=== PATIENT | female | born 1945 | race Caucasian/White ===

== ENCOUNTER 2016-09-20 17:23 | Inpatient (IN) ==
[2016-09-20 18:14] LABS: Basophils % 0.2 %; Eosinophils # 0.1 K/mcL (0.0-0.6); Eosinophils % 0.5 %; Hematocrit 27.3 % (35.3-44.9); Hemoglobin 8.5 g/dL (11.5-15.4); Immature Granulocytes % 0.8 % (0-4); Lymphocytes # 0.6 K/mcL (0.6-4.6); Lymphocytes % 5.4 %; Mean Corpuscular HGB Conc 31.1 g/dL (31.6-35.5); Mean Corpuscular Hemoglobin 25.3 pg (28.0-33.3); Mean Corpuscular Volume 81.3 fL (83.0-100.0); Mean Platelet Volume 9.2 fL (9.4-12.4); Monocytes # 1.1 K/mcL (0.0-1.3); Monocytes % 10.3 %; Neutrophils # 8.7 K/mcL (1.6-8.9); Platelet Count 233 K/mcL (140-400); Red Blood Count 3.36 M/mcL (3.82-4.97); Red Cell Distribution Width 16.4 % (11.5-14.5); Segmented Neutrophils % 82.8 %
[2016-09-20 18:26] LABS: Calcium 9.1 mg/dL (8.6-10.8); Potassium 3.9 mEq/L (3.5-4.5)
[2016-09-20] MEDS ORDERED: Furosemide 40 MG/4 ML VIAL IVP ONE ×2 (19:19→21:09)
--- NOTE | 2016-09-20 19:38 | Emergency Department Note ---
Disposition Clinical Impression: CHF (congestive heart failure) Qualifiers: Congestive heart failure type: combined Congestive heart failure chronicity: unspecified congestive heart failure chronicity Qualified Code(s): I50.40 - Unspecified combined systolic (congestive) and diastolic (congestive) heart failure Dyspnea Qualifiers: Dyspnea type: dyspnea on exertion Qualified Code(s): R06.09 - Other forms of dyspnea COPD (chronic obstructive pulmonary disease) Qualifiers: COPD type: unspecified COPD Qualified Code(s): J44.9 - Chronic obstructive pulmonary disease, unspecified Disposition: Admitted As Inpatient Condition: Fair Referrals: Henrry Mccullough MD [Primary Care Provider] - Forms: ED Satisfaction Letter SOB HPI - General Chief Complaint: ED Shortness of Breath/Dyspnea Stated Complaint: SOB Time Seen by Provider: 09/20/16 17:29 Source: patient, EMS Mode of arrival: EMS Limitations: no limitations Nursing Notes Reviewed: Yes Vital Signs Reviewed: Yes - History of Present Illness Patient is a 71-year-old female with multiple medical problems is here for shortness of breath. The patient states she has been short of breath last 3 days she uses oxygen as needed at the care home. She states she has limited mobility when she does she use a walker and she has 2 people on each side of her to help her ambulate. 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 Report was given that she received 80 mg Lasix IM but I cannot find the written documentation from the orders from the care home Pt Subjective Complaint: shortness of breath Onset (ago): day(s) (3) Severity: moderate Consistency/Duration: constant, gradually worsening Improves with: oxygen, rest Known history of: COPD, congestive heart failure Associated symptoms: Denies: chest pain - Related Data Home Medications Medication Instructions Recorded Confirmed Ergocalciferol (VITAMIN D2) 50,000 unit PO MOFR 08/14/15 07/20/16 [Vitamin D2 (50,000 UNIT)] Ferrous Sulfate 325 mg PO BID 08/14/15 07/20/16 Folic Acid 1 mg PO DAILY 08/14/15 07/20/16 GlipiZIDE [Glucotrol] 10 mg PO BID 08/14/15 07/20/16 Insulin Aspart Prot/Insuln Asp 2 - 12 unit SQ ACHS 08/14/15 07/20/16 [Novolog Mix 70-30 Flexpen Syrn] Metoprolol [Lopressor] 25 mg PO BID 08/14/15 07/20/16 Nystatin Cream [Mycostatin Cream] 1 appl TP TID 08/14/15 07/20/16 Sertraline [Zoloft] 150 mg PO DAILY 08/14/15 07/20/16 Spironolactone [Aldactone] 25 mg PO DAILY 08/14/15 07/20/16 Sucralfate [Carafate] 2 gm PO BID 08/14/15 07/20/16 Baclofen 10 mg PO TID 03/19/16 07/20/16 Rivaroxaban [Xarelto] 15 mg PO QPM 03/19/16 07/20/16 Lactulose 10 gm PO QID 06/24/16 07/20/16 Aspirin 81 mg PO DAILY 07/11/16 07/20/16 Fluticasone/Vilanterol [Breo 1 each IH DAILY 07/11/16 07/20/16 Ellipta 100-25 Mcg INH] Ipratropium/Albuterol Neb [Duoneb] 3 ml IH Q4H PRN 07/11/16 07/20/16 Pantoprazole Sodium [Protonix] 40 mg PO DAILY 07/11/16 07/20/16 Previous Rx's Medication Instructions Recorded Polyethylene Glycol 3350 [MiraLAX] 17 gm PO DAILY #7 powd.pack 08/17/15 Diltiazem [Cardizem] 60 mg PO Q12HR #90 tablet 01/06/16 Torsemide [Demadex] 20 mg PO BID #30 tablet 01/06/16 LORazepam [Ativan] 1 mg PO Q12H #14 tablet 07/23/16 Ondansetron ODT [Zofran ODT] 4 mg SL Q6HR PRN #15 tab.rapdis 07/23/16 Oxycodone HCl 10 mg PO Q6H PRN #25 tablet 07/23/16 Levofloxacin [Levaquin] 500 mg PO Q1-2D #2 tablet 07/29/16 Guaifenesin [Mucinex] 600 mg PO Q12H PRN #20 tab.er.12h 08/02/16 Allergies Allergy/AdvReac Type Severity Reaction Status Date / Time ceftriaxone [From Rocephin] Allergy Severe Anaphylaxis Verified 08/14/16 17:10 ciprofloxacin [From Cipro] Allergy Mild Rash Verified 08/14/16 17:10 sulfamethoxazole Allergy See Verified 08/14/16 17:10 [From Bactrim] Comments trimethoprim [From Bactrim] Allergy See Verified 08/14/16 17:10 Comments rozeta Allergy See Uncoded 06/24/16 15:20 Comments All systems ED: reviewed and negative except as stated. Constitutional: Denies: fever, chills, weakness Past Medical History - Past Medical History Source: patient, old records reviewed, nursing notes reviewed Medical history: Reports: arthritis, atrial fibrillation, cirrhosis, CHF, COPD, diabetes, GERD, hyperlipidemia, hypertension, renal disease, other Surgical history: Reports: cholecystectomy, hysterectomy Psychiatric history: Reports: anxiety, panic disorder DRAWING HAND history: Reports: bilateral tubal ligation - Social History Smoking Status: Former smoker Smokeless Tobacco Status: No Alcohol use: Reports: none Drug use: Reports: none Physical Exam - General Limitations: no limitations General appearance: alert - Head Head exam: atraumatic, normocephalic, normal inspection - Eye Eye exam: Present: normal appearance, PERRL, EOMI - ENT ENT exam: normal exam, normal oropharynx, mucous membranes moist - Neck Neck exam: Present: normal inspection, full ROM, trachea midline - Chest Chest inspection: Present: normal inspection, symmetric chest wall rise - Respiratory Respiratory exam: Present: other (Mild tachypnea with prolonged expiratory phase no rales noted or wheezing) - Cardiovascular Cardiovascular exam: Present: regular rate, normal rhythm, normal heart sounds - Abdominal Exam Abdominal exam: Present: soft, Non-Tender. Absent: tenderness, distention, guarding, rebound, rigidity - Expanded Lower Extremity Exam Lower leg exam: Present: other (biLateral 3+ pitting edema) - Neurological Exam Neurological exam: Present: alert, oriented X3, CN II-XII intact - Psychiatric Psychiatric exam: Present: normal affect, normal mood - Skin Skin exam: Present: warm, dry, intact, normal color Course Vital Signs Temperature 98.4 F 09/20/16 17:31 Pulse Rate 73 09/20/16 17:31 Respiratory Rate 20 09/20/16 17:31 Blood Pressure 117/92 09/20/16 17:31 O2 Sat by Pulse Oximetry 95 09/20/16 17:31 Temperature 98.4 F 09/20/16 17:31 Pulse Rate 76 09/20/16 19:49 Respiratory Rate 26 09/20/16 19:49 Blood Pressure 120/75 09/20/16 19:49 O2 Sat by Pulse Oximetry 93 L 09/20/16 19:49 Oxygen Delivery Oxygen Delivery Nasal Cannula Shortness of Breath/Dyspnea - Differential Diagnosis Likely: acute exacerbation of chronic obstructive airways disease, congestive heart failure, pneumonia, asthma with exacerbation, pulmonary embolism, pneumothorax, arrhythmia - Medical Records Medical records reviewed: Yes I reviewed the patient's medical records. - Lab Data Lab results reviewed: Yes I reviewed the patient's lab results. Result diagrams: 09/20/16 18:06 09/20/16 18:06 Lab Results 09/20/16 09/20/16 09/20/16 Range/Units 18:06 18:06 18:06 WBC 10.5 (4.3-11.1) K/mcL RBC 3.36 L (3.82-4.97) M/mcL Hgb 8.5 L (11.5-15.4) g/dL Hct 27.3 L (35.3-44.9) % MCV 81.3 L (83.0-100.0) fL MCH 25.3 L (28.0-33.3) pg MCHC 31.1 L (31.6-35.5) g/dL RDW 16.4 H (11.5-14.5) % Plt Count 233 (140-400) K/mcL MPV 9.2 L (9.4-12.4) fL Immature Gran % 0.8 (0-4) % Seg Neutrophils % 82.8 % Lymphocytes % 5.4 % Monocytes % 10.3 % Eosinophils % 0.5 % Basophils % 0.2 % Neutrophils # 8.7 (1.6-8.9) K/mcL Lymphocytes # 0.6 (0.6-4.6) K/mcL Monocytes # 1.1 (0.0-1.3) K/mcL Eosinophils # 0.1 (0.0-0.6) K/mcL Basophils # 0.0 (0.0-0.2) K/mcL Immature Plt Fraction 2.0 (1.1-6.1) % Sodium 134 L (136-145) mEq/L Potassium 3.9 (3.5-4.5) mEq/L Chloride 95 L (98-109) mEq/L Carbon Dioxide 28 (19-29) mEq/L BUN 22 H (7-20) mg/dL Creatinine 1.68 H (0.57-1.11) mg/dL Est GFR ( Amer) 36 L (> 60) Est GFR (Non-Af Amer) 30 L (> 60) BUN/Creatinine Ratio 13 (6-26) Glucose 288 H (70-99) mg/dL Calculated Osmolality 292 (280-300) Calcium 9.1 (8.6-10.8) mg/dL Troponin I 0.01 (0-0.03) ng/mL B-Natriuretic Peptide (0-100) pg/mL 09/20/16 Range/Units 18:06 WBC (4.3-11.1) K/mcL RBC (3.82-4.97) M/mcL Hgb (11.5-15.4) g/dL Hct (35.3-44.9) % MCV (83.0-100.0) fL MCH (28.0-33.3) pg MCHC (31.6-35.5) g/dL RDW (11.5-14.5) % Plt Count (140-400) K/mcL MPV (9.4-12.4) fL Immature Gran % (0-4) % Seg Neutrophils % % Lymphocytes % % Monocytes % % Eosinophils % % Basophils % % Neutrophils # (1.6-8.9) K/mcL Lymphocytes # (0.6-4.6) K/mcL Monocytes # (0.0-1.3) K/mcL Eosinophils # (0.0-0.6) K/mcL Basophils # (0.0-0.2) K/mcL Immature Plt Fraction (1.1-6.1) % Sodium (136-145) mEq/L Potassium (3.5-4.5) mEq/L Chloride (98-109) mEq/L Carbon Dioxide (19-29) mEq/L BUN (7-20) mg/dL Creatinine (0.57-1.11) mg/dL Est GFR ( Amer) (> 60) Est GFR (Non-Af Amer) (> 60) BUN/Creatinine Ratio (6-26) Glucose (70-99) mg/dL Calculated Osmolality (280-300) Calcium (8.6-10.8) mg/dL Troponin I (0-0.03) ng/mL B-Natriuretic Peptide 678 H (0-100) pg/mL - Radiology Data Radiology results reviewed: Yes I reviewed the patient's radiology results.
[2016-09-20] MEDS ORDERED: Ipratropium/Albuterol Neb 3 ML IH ONE (19:49)
[2016-09-20] MEDS ORDERED: Furosemide 20 MG/2 ML VIAL IVP ONE (21:09)
[2016-09-20] MEDS ORDERED: Naloxone 0.4 MG/ML INJ IVP PRN (21:17)
[2016-09-20] MEDS ORDERED: Ibuprofen 400 MG TABLET PO PRN (21:17)
[2016-09-20] MEDS ORDERED: Simethicone 80 MG TAB.CHEW PO PRN (21:25)
[2016-09-20] MEDS ORDERED: Acetaminophen 325 MG TABLET PO PRN (21:25)
--- NOTE | 2016-09-20 21:29 | Internal Med History&Physical ---
Date of Encounter: 09/20/16 Time of Encounter: 21:00 Assessment and Plan (1) Acute CHF Current visit: Yes Status: Acute Patient has chronic CHF. Last echo on 07/12/16 showed LVEF 65% with mild concentric LV hypertrophy, indeterminate diastolic function due to Afib, normal RV structure and function, trileaflet aortic valve with mild-moderate calcification, mild aortic stenosis, moderate annular calcification, severe pulmonary HTN. CXR reviewed- showed bilateral pleural effusions consistent with acute CHF. Patient agreed to wear BiPAP and was reluctant to get ABG. patient received Lasix at [facility] before coming to ED. She received a total of additional 80mg IV lasix since admission. Continue 80mg IV lasix BID. Sandhu catheter in place. Strict I/O. Continue BiPAP Continue to monitor. Check VBG in am. Qualifiers: Congestive heart failure type: diastolic Qualified Code(s): I50.31 - Acute diastolic (congestive) heart failure (2) Dyspnea Current visit: Yes Status: Acute plan as above. Qualifiers: Dyspnea type: shortness of breath Qualified Code(s): R06.02 - Shortness of breath (3) CKD (chronic kidney disease) Current visit: No Status: Chronic Patient has baseline CKD. patients Cr today was 1.68, which is close to her baseline value. Continue to monitor. Qualifiers: Chronic kidney disease stage: stage 3 (moderate) Qualified Code(s): N18.3 - Chronic kidney disease, stage 3 (moderate) (4) Atrial fibrillation Current visit: No Status: Chronic Currently rate controlled. Continue PO cardiazem, lopressor, Xarelto. Qualifiers: Atrial fibrillation type: chronic Qualified Code(s): I48.2 - Chronic atrial fibrillation (5) Dysphagia Current visit: No Status: Chronic Patient states that for about a month, she has been having trouble swallowing. She says she eats a soft diet with regular liquids. Soft ADA diet. Consult to speech therapy for recommendations. 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 (7) DM type 2 (diabetes mellitus, type 2) Current visit: No Status: Chronic Medium dose sliding scale insulin ADA diet Consult to nurses educator. Qualifiers: Diabetes mellitus complication status: with kidney complications Diabetes mellitus complication detail: with nephropathy Diabetes mellitus intermediate teacher insulin use: without senior living use Qualified Code(s): E11.21 - Type 2 diabetes mellitus with diabetic nephropathy (8) HTN (hypertension) Current visit: No Status: Chronic Qualifiers: Hypertension type: essential hypertension Qualified Code(s): I10 - Essential (primary) hypertension (9) LITO on CPAP Current visit: No Status: Chronic Currently on BiPAP. Patient states she wears CPAP at home with nose piece. (10) Obesity Current visit: No Status: Chronic Qualifiers: Obesity type: due to excess calories Obesity severity: morbid Qualified Code(s): E66.01 - Morbid (severe) obesity due to excess calories (11) DVT prophylaxis Current visit: No Status: Acute Continue Xarelto Internal Medicine - H&P: HPI Chief complaint: shortness of breath Admitted From: Emergency Dept Plans for Post Hospital Care: Transfer Care Home Facility History of present illness: PCP: Henrry Mccullough. Ms. Rodriguez is a 71 year old female with PMHx of Afib, CHF, CKD4, T2DM, cirrhosis of liver, HTN, HLD, LITO. Patient was sent to [facility] from [facility] due to shortness of breath. Earlier in the day, her oxygen saturations have dropped to 70s. She received one dose of IM lasix and was sent to [place]. Patient states that she had shortness of breath that started about one week ago and progressively getting worse. Patient is on 2L oxygen at baseline, and stated that she was requiring more oxygen than usual. She felt like she couldn't catch her breath. She states that she also has felt weak for about a month, and has had trouble swallowing. She denies fever, chills. She has some nausea but denies vomiting. She admits to having duarrhea due to laxatives she takes. Patient admits to having a sensation of pressure on her chest, and says she has chest pain if she breathes in too deeply. She denies recent falls or syncopal episodes. Social Hx: lives at [facility], denies smoking history, denies use of alcohol. Family Hx: mother at 90 from unknown cause. Father at 79 from HF. Has a sister with breast cancer. Surgical Hx: partial hysterectomy, tubal ligation, cholecystectomy. Had a heart cath about two years ago- done by Dr. Leyva. Patient states she did not require any stents. Past Med Surg Social Fam HX - Past Medical History Medical history: arthritis, atrial fibrillation, cirrhosis, CHF, COPD, diabetes , GERD, hyperlipidemia, hypertension, renal disease, other Psychiatric history: anxiety, panic disorder - Past Surgical History Surgical History: cholecystectomy, hysterectomy - Social History Smoking Status: Former smoker Smokeless Tobacco Status: No Alcohol use: none Drug use: none - Family History Mother Living Status: Hx Family Cardiac Disorders: Yes (atrial fibrillation) Hx Family GI Disorders: Yes (Polyps) Hx Family Endocrine Disorder: Yes (DM) Father Living Status: Hx Family Cardiac Disorders: Yes (HTN) Hx Family Cancer: Yes (Leukemia) Sister Living Status: Still Living Hx Family Cancer: Yes (Breast Cancer, age 40's) Hx Family Endocrine Disorder: Yes (diabetes mellitus) Brother Living Status: Still Living Hx Family Cardiac Disorders: No Hx Family Respiratory Disorders: No Hx Family Cancer: No Hx Family GI Disorders: No Hx Family Endocrine Disorder: Yes Hx Family Neuromuscular Disorders: No Hx Family Neurologic Disorders: No Hx Family HEENT Disorders: No Hx Family Autoimmune Disorders: No Internal Medicine - H&P: Meds Folic Acid 1 mg PO DAILY 08/14/15 [History] GlipiZIDE [Glucotrol] 10 mg PO BID 08/14/15 [History] Metoprolol [Lopressor] 12.5 mg PO BID 08/14/15 [History] Sertraline [Zoloft] 150 mg PO DAILY 08/14/15 [History] Sucralfate [Carafate] 2 gm PO BID 08/14/15 [History] Baclofen 5 - 10 mg PO AD 03/19/16 [History] Rivaroxaban [Xarelto] 15 mg PO QPM 03/19/16 [History] Lactulose 10 gm PO QID 06/24/16 [History] Aspirin 81 mg PO DAILY 07/11/16 [History] Fluticasone/Vilanterol [Breo Ellipta 100-25 Mcg INH] 1 each IH DAILY 07/11/16 [ History] Ipratropium/Albuterol Neb [Duoneb] 3 ml IH Q6H PRN 07/11/16 [History] Pantoprazole Sodium [Protonix] 40 mg PO DAILY 07/11/16 [History] Oxycodone HCl 10 mg PO Q6H PRN #25 tablet 07/23/16 [Rx] Calcium Carbonate [Tums] 1,000 mg PO BID PRN 09/20/16 [History] Diltiazem [Cardizem] 30 mg PO TID 09/20/16 [History] Gabapentin [Neurontin] 100 mg PO BID 09/20/16 [History] Insulin DETEMIR [Levemir Flextouch] 5 unit SQ HS 09/20/16 [History] Lidocaine Patch [Lidoderm 5% patch] 1 each TP DAILY 09/20/16 [History] Nystatin POWDER [Nystop] 1 appl TP DAILY PRN 09/20/16 [History] Sennosides [Senna] 17.2 mg PO DAILY 09/20/16 [History] Simethicone [Gas-X] 120 mg PO BID PRN 09/20/16 [History] Torsemide [Demadex] 10 mg PO BID 09/20/16 [History] Allergies ceftriaxone [From Rocephin] Allergy (Severe, Verified 08/14/16 17:10) Anaphylaxis Occured at [facility]. Required ICU transfer, intubation, and mechanical ventilation. ciprofloxacin [From Cipro] Allergy (Mild, Verified 08/14/16 17:10) Rash sulfamethoxazole [From Bactrim] Allergy (Verified 08/14/16 17:10) See Comments trimethoprim [From Bactrim] Allergy (Verified 08/14/16 17:10) See Comments rozeta Allergy (Uncoded 06/24/16 15:20) See Comments All Systems PM: A 10-system review of systems was performed and is negative for pertinent findings except as documented above in the HPI. - Constitutional Constitutional: lethargy, weakness, no anorexia, no chills, no fever(s), no falls - EENT Eyes: blurry vision - Cardiovascular Cardiovascular ROS IM: chest pain (only with deep inspiration), no syncope - Respiratory Respiratory: no cough - Gastrointestinal Gastrointestinal: diarrhea, no abdominal pain, no vomiting - Neurological Neurological ROS: no abnormal movements, no confusion, no dizziness, no frequent falls - Constitutional Vitals: Temp Pulse Resp BP Pulse Ox 98.4 F 76 18 130/78 94 L 09/20/16 17:31 09/20/16 19:49 09/20/16 20:33 09/20/16 20:25 09/20/16 20:33 General appearance: Present: A&O X 3, pleasant, severe distress, answers questions appropriately - Head Head exam: Present: atraumatic, normocephalic - ENT ENT exam: Present: mucous membranes moist - Neck Neck exam general surgery: Present: supple, trachea midline Additional comments: neck cannot be visualized properly secondary to obesity. - Respiratory Respiratory exam: Present: accessory muscle use (patient is in distress with accessory muscle use and abdominal breathing as well. ), rales (fine rales in lower lobes bilaterally. ), rhonchi, wheezes (expiratory wheezing more prominent in the left lung. ) - Cardiovascular Cardiovascular exam: Present: irregular rhythm, +S1, +S2, systolic murmur. Absent: JVD - GI/Abdominal GI/Abdominal exam: Present: normal bowel sounds, soft, tenderness. Absent: guarding - Extremities Exam Extremities exam: Present: normal capillary refill, pedal edema (+3 pitting edema on lower extremities bilaterally. Upper extremity bruising bilaterally. ) , radial pulses palpable and symetrical. Absent: cyanotic - Incison Incision: Present: erythema - Neurological Exam Neurological exam: Present: alert, oriented X3. Absent: facial droop, speech deficit Internal Med - H&P Results - Labs CBC & Chem 7: 09/20/16 18:06 09/20/16 18:06
[2016-09-20 21:50] LABS: VBG HCO3 33.7 mEq/L (21-27); VBG PH 7.38 pH Units (7.32-7.42)
[2016-09-20] MEDS: *HR* OxyCODONE Immed Rel 5 MG TABLET PO PRN (22:00)
[2016-09-21] MEDS ORDERED: D5% in Water 1,000 ML IV PRN (00:12)
[2016-09-21] MEDS ORDERED: *HR* Dextrose 50 % in Water (Syg) 50 ML SYRINGE IVP PRN (00:12)
[2016-09-21] MEDS ORDERED: Dextrose Gel 15 GM PO PRN ×2 (00:12)
[2016-09-21 01:18] LABS: VBG HCO3 35.9 mEq/L (21-27); VBG PH 7.4 pH Units (7.32-7.42)
[2016-09-21 01:20] LABS: Basophils % 0.2 %; Eosinophils # 0.1 K/mcL (0.0-0.6); Eosinophils % 0.8 %; Hemoglobin 7.9 g/dL (11.5-15.4); Immature Granulocytes % 0.7 % (0-4); Lymphocytes # 0.7 K/mcL (0.6-4.6); Lymphocytes % 7.1 %; Mean Corpuscular HGB Conc 31.6 g/dL (31.6-35.5); Mean Corpuscular Hemoglobin 25.9 pg (28.0-33.3); Mean Platelet Volume 9.2 fL (9.4-12.4); Monocytes % 10.2 %; Neutrophils # 7.9 K/mcL (1.6-8.9); Platelet Count 189 K/mcL (140-400); Red Blood Count 3.05 M/mcL (3.82-4.97); Red Cell Distribution Width 16.5 % (11.5-14.5)
--- NOTE | 2016-09-21 01:30 | Event Note ---
Date of Encounter: 09/21/16 Time of Encounter: 01:26 Patient seen and examined with biomedical equipment technician. Patient presents with a picture of pulmonary edema. She has been progressively short of breath for the past week. She has chronic kidney disease and is on a small dose of Lasix at home 20 mg twice a day. Patient with increased work breathing during my interview. She was placed on BiPAP. Sandhu catheter was placed. She will be started only succeeding milligrams intravenous twice daily. She denies any chest pain. She denies any increased sputum production or fevers. X-ray conforming with pulmonary edema. Her electrocardiogram shows atrial relation which is chronic but no ST segment shifts. She mentioned that she had a coronary integrating 2 years ago showed no occlusive disease.
[2016-09-21 01:33] LABS: Albumin 2.1 g/dL (3.5-5.0); Albumin/Globulin Ratio 0.6 (1.1-2.2); Bilirubin,Total 0.5 mg/dL (0.2-1.2); Calcium 9.1 mg/dL (8.6-10.8); Globulin 3.6 g/dL (2.4-3.5); Magnesium 1.6 mg/dL (1.6-2.6); Phosphorous 3.2 mg/dL (2.3-4.7); Potassium 3.5 mEq/L (3.5-4.5); Total Protein 5.7 g/dL (6.0-8.3)
[2016-09-21] MEDS: Insulin LISPRO 300 UNITS/3 ML VIAL SQ SCH ×5 (02:26→21:21)
[2016-09-21] MEDS: Ipratropium/Albuterol Neb 3 ML IH PRN (07:28)
[2016-09-21] MEDS ORDERED: Furosemide 40 MG/4 ML VIAL IVP SCH (08:00)
[2016-09-21] MEDS: Sennosides 8.6 MG TABLET PO SCH (09:58)
[2016-09-21] MEDS: Sucralfate 1 GM TABLET PO SCH ×2 (09:58→21:20)
[2016-09-21] MEDS: Aspirin 81 MG TAB.CHEW PO SCH (09:58)
[2016-09-21] MEDS: Lactulose Oral Soln 20 GM/30 ML UDC PO SCH ×4 (09:58→21:20)
[2016-09-21] MEDS: Gabapentin 100 MG CAPSULE PO SCH ×2 (09:58→21:21)
[2016-09-21] MEDS: Folic Acid 1 MG TABLET PO SCH (09:58)
--- NOTE | 2016-09-21 10:04 | Internal Med Progress Note ---
<Reji Willis - Last Filed: 09/21/16 14:14> Date of Encounter: 09/21/16 Time of Encounter: 10:03 - Assessment and plan (1) Dyspnea Current Visit: Yes Status: Acute Assessment and plan: Hx of recurrent right sided pleural effusion, last time she had chest tube in, pt requested to withdraw it in middle of treatment, pulm was consulted, pleurx catheter was not feasible given her comorbidities and low vol of pleural fluid back then, it was documented that pt refused bronchoscopy that time, previous cytology of pleural fluid was exudative, showed proteinacesous debris, RBC and rare inflammatory cells, IR consulted today, 800ml of bloody pleural fluid removed from left side, it was sent to the lab, her dyspnea improved after the procedure, CT of chest this time showed b/l dense consolidation with scattered patchy ground-glass opacities, right worse than left, worse than previous one, superimposed rounded atelectasis to right LL, spoke to pt, this time she is okay with bronchoscopy if needed, will wait for cytology/pathology of pleural fluid to come back for now. Qualifiers: Dyspnea type: shortness of breath Qualified Code(s): R06.02 - Shortness of breath (2) Chronic diastolic (congestive) heart failure Current Visit: Yes Status: Acute Assessment and plan: Not so much of acute excerbation, will con't diuresis therapy, strict I and O's , check daily weight and daily fluid restriction. Recent echo from showed preserved EF, indeterminate diastolic function due to a-fib. (3) CKD (chronic kidney disease), stage III Current Visit: Yes Status: Acute Assessment and plan: At baseline, con't to monitor and avoid nephrotoxic agents. (4) Chronic anemia Current Visit: Yes Status: Acute Assessment and plan: Baseline is around 9 to 10, came with 8.5, this AM is 7.9, pt states that she has black stool because she takes iron pill, not so much different that usual, fecal occult test ordered, recheck hgn in AM, if further drop, may need to consult endoscopy, hemodynamically stable, not actively bleeding, hold xarelto for now. (5) Obesity (BMI 30-39.9) Current Visit: Yes Status: Acute Assessment and plan: Diet and lifestyle modifications. (6) Cirrhosis Current Visit: Yes Status: Acute Assessment and plan: No alcohol hx, likely ATWOOD, con't lactulose home dosage. Qualifiers: Qualified Code(s): K74.60 - Unspecified cirrhosis of liver (7) DM (diabetes mellitus), type 2 Current Visit: Yes Status: Acute Assessment and plan: Con't basal and SSI, accucheck ACHS. Qualifiers: Qualified Code(s): E11.9 - Type 2 diabetes mellitus without complications; Z79.4 - correction (current) use of insulin (8) DVT prophylaxis Current Visit: Yes Status: Acute Assessment and plan: IPC. - Subjective Interval history: Pt seen and examined, this AM she was complaining of dyspnea, not getting better than yesterday, no productive cough, chest tightness as well, does no feel well. - Constitutional Vitals: Temp Pulse Resp BP Pulse Ox 98.6 F 82 16 118/68 94 L 09/21/16 07:06 09/21/16 07:06 09/21/16 07:28 09/21/16 07:06 09/21/16 07:28 General appearance: Present: cooperative, A&O X 3, obese, severe distress, answers questions appropriately - Head Head exam: Present: atraumatic, normocephalic - Eye Eye exam: Present: PERRL, conjuntiva pink, sclera anicteric Pupils: Present: PERRL - Neck Neck exam general surgery: Present: supple, trachea midline. Absent: lymphadenopathy - Respiratory Respiratory exam: Present: rales (at base b/l). Absent: accessory muscle use, rhonchi, wheezes - Cardiovascular Cardiovascular exam: Present: irregular rhythm, +S1, +S2. Absent: diastolic murmur, gallop, rubs, systolic murmur - GI/Abdominal GI/Abdominal exam: Present: distended, normal bowel sounds, soft, no peritoneal signs. Absent: tenderness - Extremities Exam Extremities exam: Present: pedal edema (2+ pitting b/l), warm, radial pulses palpable and symetrical. Absent: calf tenderness, cyanotic - Neurological Exam Neurological exam: Present: CN II-XII intact, oriented X3, no focal deficits. Absent: pronater drift, facial droop, speech deficit - Skin Skin exam: Present: dry, intact Internal Medicine: Result - Labs CBC & Chem 7: 09/21/16 00:44 09/21/16 00:44 Labs: Short CBC 09/21/16 Range/Units 00:44 WBC 9.8 (4.3-11.1) K/mcL Hgb 7.9 L (11.5-15.4) g/dL Hct 25.0 L (35.3-44.9) % Plt Count 189 (140-400) K/mcL Neutrophils # 7.9 (1.6-8.9) K/mcL BMP 09/21/16 00:44 Sodium 136 Potassium 3.5 Chloride 96 L Carbon Dioxide 30 H BUN 21 H Creatinine 1.59 H Glucose 206 H Calcium 9.1 Cardiac Enzymes 09/21/16 09/21/16 Range/Units 00:44 05:15 Troponin I 0.02 0.03 (0-0.03) ng/mL Liver Function 09/21/16 Range/Units 00:44 Total Bilirubin 0.5 (0.2-1.2) mg/dL AST 10 (5-34) Units/L ALT 7 (0-55) Units/L Alkaline Phosphatase 100 (38-126) Units/L Albumin 2.1 L (3.5-5.0) g/dL Consult Discharge Plan - Plan Referrals: Henrry Mccullough MD [Primary Care Provider] - <Jovani Mcdonald P - Last Filed: 09/21/16 15:01> - Constitutional Vitals: Temp Pulse Resp BP Pulse Ox 98.4 F 89 24 152/72 95 09/21/16 10:45 09/21/16 10:45 09/21/16 10:45 09/21/16 10:45 09/21/16 10:45 Internal Medicine: Result - Labs CBC & Chem 7: 09/21/16 00:44 09/21/16 00:44 - ABG Interpretation ABG results: PT/INR, D-dimer PT 15.4 Seconds (9.4-12.1) H 09/21/16 10:34 - Impressions Impressions Thoracentesis Ultrasound 09/21/16 09:58 IMPRESSION: Successful ultrasound guided left thoracentesis. D/ / Asaf Guerrier MD / Asaf Guerrier MD Interpreting Provider: Asaf Guerrier MD Chest CT 09/21/16 10:45 IMPRESSION: Bilateral pleural effusions, left larger than right, significantly worse on the left from prior exam but improved on the right. Bilateral dense consolidations along with scattered patchy ground-glass opacities, right worse than left. There is also interlobular septal thickening. Findings are worsened from prior exam and likely reflect a combination of pulmonary and interstitial edema, atelectasis as well as multifocal infectious or inflammatory infiltrates. Also suspected superimposed rounded atelectasis to right lower lobe redemonstrated. Continued follow-up recommended. Trace ascites to visualized upper abdomen along with mild cirrhotic changes to the liver. D/ / 09/21/2016 11:37:23 Sathya Goff MD / ancelmo Interpreting Provider: Sathya Goff MD Chest X-Ray 09/21/16 11:24 IMPRESSION: Interval improvement to left pleural effusion status post left thoracentesis. No pneumothorax. Otherwise stable exam. D/ / 09/21/2016 11:48:03 Sathya Goff MD / [email or web address] Interpreting Provider: Sathya Goff MD - Attending Attestation I examined this patient and my medical decision-making was reviewed with the ASSISTANT COMMISSIONER/PA/Advanced Practice Nurse/Resident Physician. I agree with the documented findings, disposition and treatment plan as described except to the extent set forth below. appreciated IR input. Aspirated pleural fluid. awawting cytology. Patient agreed for bronchoscopy
[2016-09-21 10:48] LABS: INR 1.4; Prothrombin Time 15.4 Seconds (9.4-12.1)
[2016-09-21] MEDS: *HR* OxyCODONE Immed Rel 5 MG TABLET PO PRN ×2 (10:48→18:49)
--- NOTE | 2016-09-21 11:25 | IR Procedure Note ---
Date of procedure: 09/21/16 Consent Obtained: Verbal consent, Written consent Timeout: Correct patient and procedure verified, Correct site verified, Time out performed, Skin prep completed Local anesthetic: Lidocaine 1% Indications: Pleural effusions Procedure Performed: Left thoracentesis Site/Technique: Left thoracentesis performed Results/Findings: Serous pleural fluid Estimated blood loss (cc): 2 Complications: None; Tolerated procedure well Post Procedure Treatment Plan: Post procedure CXR
[2016-09-21 14:41] LABS: Appearance of Pleural Fl Cloudy (Clear)
[2016-09-21] MEDS: Simethicone 80 MG TAB.CHEW PO PRN ×2 (15:03→21:27)
--- NOTE | 2016-09-21 16:45 | Electrocardiograph Report ---
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
[2016-09-21] MEDS ORDERED: *HR* Rivaroxaban 15 MG TABLET PO SCH (18:00)
[2016-09-21] MEDS: Ondansetron 4 MG/2 ML VIAL IVP PRN (18:55)
[2016-09-21] MEDS: Insulin DETEMIR 100 UNIT/ML X5UNITS SQ SCH (21:26)
[2016-09-22 06:31] LABS: Basophils % 0.2 %; Eosinophils # 0.2 K/mcL (0.0-0.6); Eosinophils % 2.1 %; Hematocrit 26.3 % (35.3-44.9); Hemoglobin 8.2 g/dL (11.5-15.4); Immature Granulocytes % 0.8 % (0-4); Lymphocytes # 0.8 K/mcL (0.6-4.6); Lymphocytes % 7.1 %; Mean Corpuscular HGB Conc 31.2 g/dL (31.6-35.5); Mean Corpuscular Hemoglobin 25.9 pg (28.0-33.3); Mean Platelet Volume 9.4 fL (9.4-12.4); Neutrophils # 8.6 K/mcL (1.6-8.9); Platelet Count 214 K/mcL (140-400); Red Blood Count 3.17 M/mcL (3.82-4.97); Red Cell Distribution Width 16.4 % (11.5-14.5); Segmented Neutrophils % 80.8 %
[2016-09-22 06:45] LABS: Calcium 9.1 mg/dL (8.6-10.8); Potassium 3.7 mEq/L (3.5-4.5)
[2016-09-22] MEDS: *HR* OxyCODONE Immed Rel 5 MG TABLET PO PRN ×3 (06:45→22:21)
--- NOTE | 2016-09-22 08:01 | Internal Med Progress Note ---
Date of Encounter: 09/22/16 Time of Encounter: 07:53 - Assessment and plan (1) Dyspnea Current Visit: Yes Status: Acute Assessment and plan: Hx of recurrent right sided pleural effusion, last time she had chest tube in, pt requested to withdraw it in middle of treatment, pulm was consulted, pleurx catheter was not feasible given her comorbidities and low vol of pleural fluid back then, it was documented that pt refused bronchoscopy that time, previous cytology of pleural fluid was exudative, showed proteinacesous debris, RBC and rare inflammatory cells, IR consulted today, 800ml of bloody pleural fluid removed from left side, it was sent to the lab, her dyspnea improved after the procedure, CT of chest this time showed b/l dense consolidation with scattered patchy ground-glass opacities, right worse than left, worse than previous one, superimposed rounded atelectasis to right LL, spoke to pt, this time she is okay with bronchoscopy if needed, will wait for cytology/pathology of pleural fluid to come back for now. 09/22/2016 Dyspnea is getting better as a result of pleural fluid aspiration. lymphocytic pleural fluid. awaiting for pleural fluid work up. Pulmonary evaluation for possible bronchoscopy on Saturday. Qualifiers: Dyspnea type: shortness of breath Qualified Code(s): R06.02 - Shortness of breath (2) Chronic diastolic (congestive) heart failure Current Visit: Yes Status: Acute Assessment and plan: Not so much of acute excerbation, will con't diuresis therapy, strict I and O's , check daily weight and daily fluid restriction. Recent echo from showed preserved EF, indeterminate diastolic function due to a-fib. 09/22/2016 Very unlikely exacerbation of heart failure. (3) CKD (chronic kidney disease), stage III Current Visit: Yes Status: Acute Assessment and plan: At baseline, con't to monitor and avoid nephrotoxic agents. 09/22/2016 improving MELECIO will continue present treatment. (4) Obesity (BMI 30-39.9) Current Visit: Yes Status: Acute Assessment and plan: Diet and lifestyle modifications. (5) Chronic anemia Current Visit: Yes Status: Acute Assessment and plan: Baseline is around 9 to 10, came with 8.5, this AM is 7.9, pt states that she has black stool because she takes iron pill, not so much different that usual, fecal occult test ordered, recheck hgn in AM, if further drop, may need to consult endoscopy, hemodynamically stable, not actively bleeding, hold xarelto for now. Medical risk management : Mild to moderate risk of worsening in spite she is on appropriate treatment. - Subjective Interval history: seen and examined. sitting in chair and has occasional shortness of breath. no chest pain. she feels much better as compare to yesterday. - Constitutional Vitals: Temp Pulse Resp BP Pulse Ox 97.8 F 73 16 139/82 95 09/22/16 07:32 09/22/16 07:32 09/22/16 07:32 09/22/16 07:32 09/22/16 07:32 General appearance: Present: cooperative, A&O X 3, obese, severe distress, answers questions appropriately - Head Head exam: Present: atraumatic, normocephalic - Eye Eye exam: Present: PERRL, conjuntiva pink, sclera anicteric Pupils: Present: PERRL - Neck Neck exam general surgery: Present: supple, trachea midline. Absent: lymphadenopathy - Respiratory Respiratory exam: Present: CTAB. Absent: accessory muscle use, rales, rhonchi, wheezes - Cardiovascular Cardiovascular exam: Present: RRR, +S1, +S2. Absent: diastolic murmur, gallop, rubs, systolic murmur - GI/Abdominal GI/Abdominal exam: Present: normal bowel sounds, soft, no peritoneal signs. Absent: distended, tenderness - Extremities Exam Extremities exam: Present: warm, radial pulses palpable and symetrical. Absent : calf tenderness, cyanotic, pedal edema - Neurological Exam Neurological exam: Present: CN II-XII intact, oriented X3, no focal deficits. Absent: pronater drift, facial droop, speech deficit - Skin Skin exam: Present: dry, intact Internal Medicine: Result - Labs CBC & Chem 7: 09/22/16 05:54 09/22/16 05:54 Labs: Short CBC 09/22/16 Range/Units 05:54 WBC 10.6 (4.3-11.1) K/mcL Hgb 8.2 L (11.5-15.4) g/dL Hct 26.3 L (35.3-44.9) % Plt Count 214 (140-400) K/mcL Neutrophils # 8.6 (1.6-8.9) K/mcL BMP 09/22/16 05:54 Sodium 138 Potassium 3.7 Chloride 98 Carbon Dioxide 31 H BUN 24 H Creatinine 1.48 H Glucose 139 H Calcium 9.1 - ABG Interpretation ABG results: PT/INR, D-dimer PT 15.4 Seconds (9.4-12.1) H 09/21/16 10:34 - Impressions Impressions Thoracentesis Ultrasound 09/21/16 09:58 IMPRESSION: Successful ultrasound guided left thoracentesis. D/ / Asaf Guerrier MD / Asaf Guerrier MD Interpreting Provider: Asaf Guerrier MD Chest CT 09/21/16 10:45 IMPRESSION: Bilateral pleural effusions, left larger than right, significantly worse on the left from prior exam but improved on the right. Bilateral dense consolidations along with scattered patchy ground-glass opacities, right worse than left. There is also interlobular septal thickening. Findings are worsened from prior exam and likely reflect a combination of pulmonary and interstitial edema, atelectasis as well as multifocal infectious or inflammatory infiltrates. Also suspected superimposed rounded atelectasis to right lower lobe redemonstrated. Continued follow-up recommended. Trace ascites to visualized upper abdomen along with mild cirrhotic changes to the liver. D/ / 09/21/2016 11:37:23 Sathya Goff MD / ancelmo Interpreting Provider: Sathya Goff MD Chest X-Ray 09/21/16 11:24 IMPRESSION: Interval improvement to left pleural effusion status post left thoracentesis. No pneumothorax. Otherwise stable exam. D/ / 09/21/2016 11:48:03 Sathya Goff MD / stefano Interpreting Provider: Sathya Goff MD Consult Discharge Plan - Plan Referrals: Henrry Mccullough MD [Primary Care Provider] -
[2016-09-22] MEDS ORDERED: *HR* Morphine 2 MG/ML SYRINGE IV ONE (08:18)
[2016-09-22] MEDS: Furosemide 40 MG/4 ML VIAL IVP SCH (08:58)
[2016-09-22] MEDS: Sucralfate 1 GM TABLET PO SCH ×2 (08:58→20:52)
[2016-09-22] MEDS: Lactulose Oral Soln 20 GM/30 ML UDC PO SCH ×4 (08:58→20:51)
[2016-09-22] MEDS: Insulin LISPRO 300 UNITS/3 ML VIAL SQ SCH ×4 (08:58→20:52)
[2016-09-22] MEDS: Folic Acid 1 MG TABLET PO SCH (08:59)
[2016-09-22] MEDS: Sennosides 8.6 MG TABLET PO SCH (08:59)
[2016-09-22] MEDS: Gabapentin 100 MG CAPSULE PO SCH ×2 (08:59→20:52)
[2016-09-22] MEDS: Aspirin 81 MG TAB.CHEW PO SCH (08:59)
[2016-09-22] MEDS: Insulin DETEMIR 100 UNIT/ML X5UNITS SQ SCH (20:51)
[2016-09-22] MEDS ORDERED: GI Cocktail 40 ML EACH PO ONE (22:42)
[2016-09-22] MEDS: Ipratropium/Albuterol Neb 3 ML IH PRN (22:47)
[2016-09-23] MEDS: *HR* OxyCODONE Immed Rel 5 MG TABLET PO PRN ×3 (04:50→17:03)
--- NOTE | 2016-09-23 08:58 | Internal Med Progress Note ---
Date of Encounter: 09/23/16 Time of Encounter: 08:56 - Assessment and plan (1) Dyspnea Current Visit: Yes Status: Acute Assessment and plan: Hx of recurrent right sided pleural effusion, last time she had chest tube in, pt requested to withdraw it in middle of treatment, pulm was consulted, pleurx catheter was not feasible given her comorbidities and low vol of pleural fluid back then, it was documented that pt refused bronchoscopy that time, previous cytology of pleural fluid was exudative, showed proteinacesous debris, RBC and rare inflammatory cells, IR consulted today, 800ml of bloody pleural fluid removed from left side, it was sent to the lab, her dyspnea improved after the procedure, CT of chest this time showed b/l dense consolidation with scattered patchy ground-glass opacities, right worse than left, worse than previous one, superimposed rounded atelectasis to right LL, spoke to pt, this time she is okay with bronchoscopy if needed, will wait for cytology/pathology of pleural fluid to come back for now. 09/22/2016 Dyspnea is getting better as a result of pleural fluid aspiration. lymphocytic pleural fluid. awaiting for pleural fluid work up. Pulmonary evaluation for possible bronchoscopy on Saturday. 09/23/2016. Patient agree follow-up pulmonology review and possible bronchoscopy tomorrow. We will keep her nothing by mouth from midnight. Instructed patient regarding nothing by mouth from midnight. Qualifiers: Dyspnea type: shortness of breath Qualified Code(s): R06.02 - Shortness of breath (2) Chronic diastolic (congestive) heart failure Current Visit: Yes Status: Acute Assessment and plan: Not so much of acute excerbation, will con't diuresis therapy, strict I and O's , check daily weight and daily fluid restriction. Recent echo from showed preserved EF, indeterminate diastolic function due to a-fib. 09/22/2016 Very unlikely exacerbation of heart failure. (3) CKD (chronic kidney disease), stage III Current Visit: Yes Status: Acute Assessment and plan: At baseline, con't to monitor and avoid nephrotoxic agents. 09/22/2016 improving MELECIO will continue present treatment. 09/23/2016. Her creatinine is improving. We will continue present management. (4) Obesity (BMI 30-39.9) Current Visit: Yes Status: Acute Assessment and plan: Diet and lifestyle modifications. (5) Chronic anemia Current Visit: Yes Status: Acute Assessment and plan: Baseline is around 9 to 10, came with 8.5, this AM is 7.9, pt states that she has black stool because she takes iron pill, not so much different that usual, fecal occult test ordered, recheck hgn in AM, if further drop, may need to consult endoscopy, hemodynamically stable, not actively bleeding, hold xarelto for now. Medical risk management : Mild to moderate risk of worsening in spite she is on appropriate treatment. - Subjective Interval history: seen and examined. sitting in chair and has occasional shortness of breath. no chest pain. she feels much better as compare to yesterday. 09/23/2016 Seen and examined. Patient claims that she is occasionally coughing. Patient feels that there is some kind of mucus which is stuck inside. She feels that it is very difficult to get that mucus out. - Constitutional Vitals: Temp Pulse Resp BP Pulse Ox 98.9 F 77 18 144/7 99 09/23/16 07:42 09/23/16 07:42 09/23/16 07:42 09/23/16 05:20 09/23/16 07:42 General appearance: Present: cooperative, A&O X 3, obese, severe distress, answers questions appropriately - Head Head exam: Present: atraumatic, normocephalic - Eye Eye exam: Present: PERRL, conjuntiva pink, sclera anicteric Pupils: Present: PERRL - Neck Neck exam general surgery: Present: supple, trachea midline. Absent: lymphadenopathy - Respiratory Respiratory exam: Present: CTAB. Absent: accessory muscle use, rales, rhonchi, wheezes - Cardiovascular Cardiovascular exam: Present: RRR, +S1, +S2. Absent: diastolic murmur, gallop, rubs, systolic murmur - GI/Abdominal GI/Abdominal exam: Present: normal bowel sounds, soft, no peritoneal signs. Absent: distended, tenderness - Extremities Exam Extremities exam: Present: warm, radial pulses palpable and symetrical. Absent : calf tenderness, cyanotic, pedal edema - Neurological Exam Neurological exam: Present: CN II-XII intact, oriented X3, no focal deficits. Absent: pronater drift, facial droop, speech deficit - Skin Skin exam: Present: dry, intact Internal Medicine: Result - Labs CBC & Chem 7: 02/11/17 05:54 09/22/16 05:54 - ABG Interpretation ABG results: PT/INR, D-dimer PT 15.4 Seconds (9.4-12.1) H 09/21/16 10:34 - VTE Documentation of Mechanical Device: Intermittent pneumatic compression device Consult Discharge Plan - Plan Referrals: Henrry Mccullough MD [Primary Care Provider] -
[2016-09-23] MEDS: Gabapentin 100 MG CAPSULE PO SCH ×2 (09:40→19:53)
[2016-09-23] MEDS: Folic Acid 1 MG TABLET PO SCH (09:40)
[2016-09-23] MEDS: Sennosides 8.6 MG TABLET PO SCH (09:40)
[2016-09-23] MEDS: Insulin LISPRO 300 UNITS/3 ML VIAL SQ SCH ×4 (09:41→20:17)
[2016-09-23] MEDS: Sucralfate 1 GM TABLET PO SCH ×2 (09:41→19:53)
[2016-09-23] MEDS: Ondansetron 4 MG/2 ML VIAL IVP PRN ×2 (09:41→17:02)
[2016-09-23] MEDS: Aspirin 81 MG TAB.CHEW PO SCH (09:41)
[2016-09-23] MEDS: Furosemide 40 MG/4 ML VIAL IVP SCH (09:41)
[2016-09-23] MEDS: Lactulose Oral Soln 20 GM/30 ML UDC PO SCH ×4 (09:41→19:53)
--- NOTE | 2016-09-23 13:16 | Electrocardiograph Report ---
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
[2016-09-23] MEDS: Insulin DETEMIR 100 UNIT/ML X5UNITS SQ SCH (20:18)
[2016-09-23] MEDS: Ipratropium/Albuterol Neb 3 ML IH PRN (21:13)
[2016-09-23] MEDS ORDERED: *HR* Morphine 2 MG/ML SYRINGE IV ONE (22:20)
[2016-09-23] MEDS ORDERED: Furosemide 100 MG/10 ML VIAL IVP STA (22:24)
[2016-09-24 06:23] LABS: Basophils % 0.2 %; Eosinophils # 0.2 K/mcL (0.0-0.6); Eosinophils % 1.9 %; Hematocrit 24.9 % (35.3-44.9); Hemoglobin 7.7 g/dL (11.5-15.4); Immature Granulocytes % 0.8 % (0-4); Lymphocytes # 0.8 K/mcL (0.6-4.6); Lymphocytes % 7.7 %; Mean Corpuscular HGB Conc 30.9 g/dL (31.6-35.5); Mean Corpuscular Hemoglobin 25.8 pg (28.0-33.3); Mean Corpuscular Volume 83.3 fL (83.0-100.0); Mean Platelet Volume 9.2 fL (9.4-12.4); Monocytes # 1.1 K/mcL (0.0-1.3); Monocytes % 10.6 %; Neutrophils # 7.9 K/mcL (1.6-8.9); Platelet Count 233 K/mcL (140-400); Red Blood Count 2.99 M/mcL (3.82-4.97); Red Cell Distribution Width 16.1 % (11.5-14.5); Segmented Neutrophils % 78.8 %
[2016-09-24 06:50] LABS: Albumin/Globulin Ratio 0.5 (1.1-2.2); Alkaline Phosphatase 92 Units/L (38-126); Aspartate Amino Transferase 9 Units/L (5-34); BUN/Creatinine Ratio 22 (6-26); Bilirubin,Total 0.5 mg/dL (0.2-1.2); Calcium 9.2 mg/dL (8.6-10.8); Carbon Dioxide 34 mEq/L (19-29); Chloride 96 mEq/L (98-109); Globulin 3.8 g/dL (2.4-3.5); Glucose 188 mg/dL (70-99); Osmolality,Calculated 299 (280-300); Potassium 4.3 mEq/L (3.5-4.5); Sodium 138 mEq/L (136-145); Total Protein 5.8 g/dL (6.0-8.3); eGFR For African Americans 38 (> 60); eGFR For Non-African Americans 31 (> 60)
[2016-09-24 07:19] LABS: Alanine Aminotransferase < 6 Units/L (0-55); Blood Urea Nitrogen 36 mg/dL (7-20)
[2016-09-24] MEDS ORDERED: Aztreonam 500 MG in D5% in Water 100 ML IVPB SCH (08:00)
[2016-09-24] MEDS: Insulin LISPRO 300 UNITS/3 ML VIAL SQ SCH ×3 (09:25→21:05)
[2016-09-24] MEDS: Ipratropium/Albuterol Neb 3 ML IH PRN (10:30)
[2016-09-24] MEDS ORDERED: *HR* Morphine 2 MG/ML SYRINGE IV ONE (10:46)
--- NOTE | 2016-09-24 12:42 | Internal Med Progress Note ---
<Reji Kim - Last Filed: 09/24/16 14:06> Date of Encounter: 09/24/16 Time of Encounter: 08:35 - Assessment and plan (1) Acute and chronic respiratory failure Current Visit: Yes Status: Acute Assessment and plan: Patients respiratory pathology is likely from multiple etiologies. COPD, diastolic CHF, pleural effusions,and obesity. Currently she is tolerating Bipap at 35% FiO2. She has recurrent pleural effusions and had recent thoracentesis that was reportedly bloody. Cytology is pending. She was seen in consultation by pulmonology. It eas recommended at that time to perform a bronchoscopy to r/o endobronchial lesion. However she refused at that time. Will continue with supportive care, diureses, and bronchodialators. She will need to go back on her long acting inhalers once she is discharged. However she is getting short acting Duonebs frequently at this time. consult pulm as she is now willing to have bronchoscopy. appreciate their recommendations. Qualifiers: Qualified Code(s): J96.20 - Acute and chronic respiratory failure, unspecified whether with hypoxia or hypercapnia (2) Pleural effusion Current Visit: Yes Status: Acute Assessment and plan: recurrent etiology unclear. await pathology results. (3) Anemia Current Visit: Yes Status: Acute Assessment and plan: Etioloy unclear at this time. Recent iron studies, ferritin, B1 and folate WNL. Possibly secondary to CKD. May benefit from erythropoetin in the future. I will also check her reticulocyte counts. and LDH. Hemoccult ordered but never recieve. I have ordered hemoocult. Continue to hold Xarelto for now. Qualifiers: Qualified Code(s): D64.9 - Anemia, unspecified (4) Diastolic heart failure Current Visit: Yes Status: Acute Assessment and plan: net negative 525 cc's since admission continue diuresis fluid restriction continue to monitor renal function. strict I's and Os Qualifiers: Qualified Code(s): I50.30 - Unspecified diastolic (congestive) heart failure (5) Obesity Current Visit: Yes Status: Acute Assessment and plan: advise weight loss Qualifiers: Qualified Code(s): E66.9 - Obesity, unspecified (6) CKD (chronic kidney disease) Current Visit: Yes Status: Acute Qualifiers: Qualified Code(s): N18.9 - Chronic kidney disease, unspecified (7) Diabetes Current Visit: Yes Status: Acute Qualifiers: Qualified Code(s): E11.9 - Type 2 diabetes mellitus without complications (8) Cirrhosis Current Visit: Yes Status: Acute Assessment and plan: Etiology likely secondary to ATWOOD. Avoid hepatotoxins diabetes control. weght loss. Qualifiers: Qualified Code(s): K74.60 - Unspecified cirrhosis of liver (9) Atrial fibrillation Current Visit: Yes Status: Acute Assessment and plan: currently rate controlled. Xarelto has been held due to concern for GI bleed with anemia. Continue to hold until hemmoccult returns. Qualifiers: Qualified Code(s): I48.91 - Unspecified atrial fibrillation (10) DVT prophylaxis Current Visit: Yes Status: Acute Assessment and plan: She is high risk for developing DVT will order SQ heparin - Subjective Interval history: Patient did have some increased dyspnea over night that has since resolved. However she is still requiring BIPAP. She denies productive cough ad hemoptysis. she She dose complain of some discomfort from her catheter. she denies any further complains or concerns at this time. - Constitutional Vitals: Temp Pulse Resp BP Pulse Ox 97.1 F L 87 23 146/74 94 L 09/24/16 07:56 09/24/16 11:45 09/24/16 11:45 09/24/16 11:45 09/24/16 12:32 General appearance: Present: cooperative, A&O X 3, morbidly obese, pleasant, no acute distress, obese, answers questions appropriately - Head Head exam: Present: atraumatic, normal inspection, normocephalic - Eye Eye exam: Present: normal appearance, PERRL, conjuntiva pink, sclera anicteric. Absent: conjunctival injection, scleral icterus Pupils: Present: PERRL Additional comments: wearing BIPAP - Neck Neck exam general surgery: Present: supple, trachea midline. Absent: lymphadenopathy - Respiratory Respiratory exam: Present: CTAB. Absent: accessory muscle use, rales, rhonchi, wheezes Additional comments: mild wheezes and rhonchi bilateral. Lung sounds diminished throughout. Difficult exam secondary to habitus. Internal Medicine: Result - Labs CBC & Chem 7: 09/24/16 05:39 09/24/16 05:39 Labs: Short CBC 09/24/16 Range/Units 05:39 WBC 10.0 (4.3-11.1) K/mcL Hgb 7.7 L (11.5-15.4) g/dL Hct 24.9 L (35.3-44.9) % Plt Count 233 (140-400) K/mcL Neutrophils # 7.9 (1.6-8.9) K/mcL BMP 09/24/16 05:39 Sodium 138 Potassium 4.3 Chloride 96 L Carbon Dioxide 34 H BUN 36 H D Creatinine 1.61 H Glucose 188 H Calcium 9.2 Cardiac Enzymes 09/23/16 Range/Units 22:52 Troponin I 0.01 (0-0.03) ng/mL Liver Function 09/24/16 Range/Units 05:39 Total Bilirubin 0.5 (0.2-1.2) mg/dL AST 9 (5-34) Units/L ALT < 6 (0-55) Units/L Alkaline Phosphatase 92 (38-126) Units/L Albumin 2.0 L (3.5-5.0) g/dL - ABG Interpretation ABG results: PT/INR, D-dimer PT 15.4 Seconds (9.4-12.1) H 09/21/16 10:34 - Impressions Impressions Chest/Abdomen X-ray 09/23/16 21:50 IMPRESSION: Nonspecific bowel gas pattern. No evidence of free intraperitoneal air. Stable appearance of extensive bibasilar airspace opacities, concerning for pneumonia. Small bilateral effusions. D/ / David Hammond MD / David Hammond MD Interpreting Provider: David Hammond MD - VTE Documentation of Mechanical Device: Intermittent pneumatic compression device Consult Discharge Plan - Plan Referrals: Henrry Mccullough MD [Primary Care Provider] - <Jovani Mcdonald - Last Filed: 09/24/16 17:41> - Assessment and plan (1) Dyspnea Current Visit: Yes Status: Acute Qualifiers: Dyspnea type: shortness of breath Qualified Code(s): R06.02 - Shortness of breath (2) Chronic diastolic (congestive) heart failure Current Visit: Yes Status: Acute (3) CKD (chronic kidney disease), stage III Current Visit: Yes Status: Acute (4) Obesity (BMI 30-39.9) Current Visit: Yes Status: Acute (5) Chronic anemia Current Visit: Yes Status: Acute - Constitutional Vitals: Temp Pulse Resp BP Pulse Ox 98.0 F 76 22 146/83 20 L 09/24/16 16:07 09/24/16 16:07 09/24/16 16:07 09/24/16 16:07 09/24/16 16:07 Internal Medicine: Result - Labs CBC & Chem 7: 09/24/16 05:39 09/24/16 05:39 Labs: Short CBC 09/24/16 Range/Units 05:39 WBC 10.0 (4.3-11.1) K/mcL Hgb 7.7 L (11.5-15.4) g/dL Hct 24.9 L (35.3-44.9) % Plt Count 233 (140-400) K/mcL Neutrophils # 7.9 (1.6-8.9) K/mcL BMP 09/24/16 05:39 Sodium 138 Potassium 4.3 Chloride 96 L Carbon Dioxide 34 H BUN 36 H D Creatinine 1.61 H Glucose 188 H Calcium 9.2 Cardiac Enzymes 09/23/16 Range/Units 22:52 Troponin I 0.01 (0-0.03) ng/mL Liver Function 09/24/16 Range/Units 05:39 Total Bilirubin 0.5 (0.2-1.2) mg/dL AST 9 (5-34) Units/L ALT < 6 (0-55) Units/L Alkaline Phosphatase 92 (38-126) Units/L Albumin 2.0 L (3.5-5.0) g/dL - ABG Interpretation ABG results: PT/INR, D-dimer PT 15.4 Seconds (9.4-12.1) H 09/21/16 10:34 - Impressions Impressions Chest/Abdomen X-ray 09/23/16 21:50 IMPRESSION: Nonspecific bowel gas pattern. No evidence of free intraperitoneal air. Stable appearance of extensive bibasilar airspace opacities, concerning for pneumonia. Small bilateral effusions. D/ / David Hammond MD / David Hammond MD Interpreting Provider: David Hammond MD - Attending Attestation I examined this patient and my medical decision-making was reviewed with the DAYTIME BABYSITTER/PA/Advanced Practice Nurse/Resident Physician. I agree with the documented findings, disposition and treatment plan as described except to the extent set forth below. recurrent pleural effusion previously refused bronchoscopy pulmonary on board pending bronchoscopy
[2016-09-24] MEDS: Gabapentin 100 MG CAPSULE PO SCH ×2 (16:35→21:03)
[2016-09-24] MEDS: Aspirin 81 MG TAB.CHEW PO SCH (16:35)
[2016-09-24] MEDS: *HR* OxyCODONE Immed Rel 5 MG TABLET PO PRN ×2 (16:35→22:59)
[2016-09-24] MEDS: Folic Acid 1 MG TABLET PO SCH (16:36)
[2016-09-24] MEDS: Sucralfate 1 GM TABLET PO SCH ×2 (16:36→21:04)
[2016-09-24] MEDS: Sennosides 8.6 MG TABLET PO SCH (16:37)
[2016-09-24] MEDS: Lactulose Oral Soln 20 GM/30 ML UDC PO SCH ×4 (16:37→21:04)
[2016-09-24] MEDS: Furosemide 40 MG/4 ML VIAL IVP SCH (16:38)
[2016-09-24] MEDS: *HR* Heparin 5,000 UNIT/ML VIAL SQ SCH (17:23)
--- NOTE | 2016-09-24 17:30 | Pulmonology Consult Note ---
Date of Encounter: 09/24/16 Time of Encounter: 16:30 Assessment and Plan (1) Acute and chronic respiratory failure Current Visit: Yes Status: Acute I had long discussion with patient and daughter at the bed side regarding management of her respiratory failure which is multifactorial in my opinion, such as diastolic heart failure and valvular heart disease as well as recurrent pleural effusion as well as secondary pulmonary hypertension. Daughter was under impression bronchoscopy is without risk and I told her her mother would be consider high risk for complications and I explained to them all the risks, alternatives and benefit of the procedure. Patient would like to think about it and I will visit her tomorrow. I'm not sure if anesthesia will give agree to give her anesthesia for the procedure. Patient is under impression bronchoscopy will help her to breath better and it is therapeutic. I did explained to her that is not the case and it might worsen her condition. I feel patient has multiple medical problems and palliative care is recommended. I agree with current treatment at this time. Qualifiers: Respiratory failure complication: hypoxia and hypercapnia Qualified Code(s) : J96.21 - Acute and chronic respiratory failure with hypoxia; J96.22 - Acute and chronic respiratory failure with hypercapnia (2) Pulmonary hypertension due to hypoxia Current Visit: Yes Status: Chronic Keep SPO2 around 92% (3) Pulmonary hypertension due to left heart disease Current Visit: Yes Status: Chronic This is most likely Group 2 and 3 and need to treat underlying diseases. 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 History of Present Illness Consult date: 09/24/16 Requesting physician: Jovani Mcdonald Reason for consult: dyspnea, pneumonia, pleural effusion Chief complaint: Shortness of breath History of present illness: This is a pleasant 71 year female with multiple medical problems as mentioned under PMH with multiple hospitalization to [facility] for similar symptoms. Patient had worsening of her dyspnea and was found to have CT finding mostly suggestive of pulmonary edema and atelectasis, however infectious etiology in the differential diagnosis. Patient was kept NPO for bronchoscopy today. I saw patient with nurse and talked her daughter. Patient has been in respiratory distress and she has history of A fib and CHF as well as LITO and pulmonary hypertesnion. She had thoracentesis done and she has been using NIV. She has cough, mostly dry, no hemoptysis, but she has a sensation of pressure in her chest at this time. She has noticed some wheezing and she has been treated with bronchodilators. Patient feels she has been getting worse and she is using O2 at 2 lpm at baseline. She stated she feels she is not able to catch her breath and she feels weak. No fever or chills now. Past Med Surg Social Fam HX - Past Medical History Medical history: arthritis, atrial fibrillation, cirrhosis, CHF, COPD, diabetes , GERD, hyperlipidemia, hypertension, renal disease, other Psychiatric history: anxiety, panic disorder - Past Surgical History Surgical History: cholecystectomy, hysterectomy - Social History Smoking Status: Former smoker Smokeless Tobacco Status: No Alcohol use: none Drug use: none - Family History Mother Living Status: Hx Family Cardiac Disorders: Yes (atrial fibrillation) Hx Family GI Disorders: Yes (Polyps) Hx Family Endocrine Disorder: Yes (DM) Father Living Status: Hx Family Cardiac Disorders: Yes (HTN) Hx Family Cancer: Yes (Leukemia) Sister Living Status: Still Living Hx Family Cancer: Yes (Breast Cancer, age 40's) Hx Family Endocrine Disorder: Yes (diabetes mellitus) Brother Living Status: Still Living Hx Family Cardiac Disorders: No Hx Family Respiratory Disorders: No Hx Family Cancer: No Hx Family GI Disorders: No Hx Family Endocrine Disorder: Yes Hx Family Neuromuscular Disorders: No Hx Family Neurologic Disorders: No Hx Family HEENT Disorders: No Hx Family Autoimmune Disorders: No Medications and Allergies Folic Acid 1 mg PO DAILY 08/14/15 [History] GlipiZIDE [Glucotrol] 10 mg PO BID 08/14/15 [History] Metoprolol [Lopressor] 12.5 mg PO BID 08/14/15 [History] Sertraline [Zoloft] 150 mg PO DAILY 08/14/15 [History] Sucralfate [Carafate] 2 gm PO BID 08/14/15 [History] Baclofen 5 - 10 mg PO AD 03/19/16 [History] Rivaroxaban [Xarelto] 15 mg PO QPM 03/19/16 [History] Lactulose 10 gm PO QID 06/24/16 [History] Aspirin 81 mg PO DAILY 07/11/16 [History] Fluticasone/Vilanterol [Breo Ellipta 100-25 Mcg INH] 1 each IH DAILY 07/11/16 [ History] Ipratropium/Albuterol Neb [Duoneb] 3 ml IH Q6H PRN 07/11/16 [History] Pantoprazole Sodium [Protonix] 40 mg PO DAILY 07/11/16 [History] Oxycodone HCl 10 mg PO Q6H PRN #25 tablet 07/23/16 [Rx] Calcium Carbonate [Tums] 1,000 mg PO BID PRN 09/20/16 [History] Diltiazem [Cardizem] 30 mg PO TID 09/20/16 [History] Gabapentin [Neurontin] 100 mg PO BID 09/20/16 [History] Insulin DETEMIR [Levemir Flextouch] 5 unit SQ HS 09/20/16 [History] Lidocaine Patch [Lidoderm 5% patch] 1 each TP DAILY 09/20/16 [History] Nystatin POWDER [Nystop] 1 appl TP DAILY PRN 09/20/16 [History] Sennosides [Senna] 17.2 mg PO DAILY 09/20/16 [History] Simethicone [Gas-X] 120 mg PO BID PRN 09/20/16 [History] Torsemide [Demadex] 10 mg PO BID 09/20/16 [History] Allergies ceftriaxone [From Rocephin] Allergy (Severe, Verified 08/14/16 17:10) Anaphylaxis Occured at [facility]. Required ICU transfer, intubation, and mechanical ventilation. ciprofloxacin [From Cipro] Allergy (Mild, Verified 08/14/16 17:10) Rash sulfamethoxazole [From Bactrim] Allergy (Verified 08/14/16 17:10) See Comments trimethoprim [From Bactrim] Allergy (Verified 08/14/16 17:10) See Comments rozeta Allergy (Uncoded 06/24/16 15:20) See Comments All Systems: A 10-system review of systems was performed and is negative for pertinent findings except as documented above in the HPI. Physical Examination Vital Signs: Vital Signs, Last 4 Hours Temp Pulse Resp BP Pulse Ox 09/24/16 16:07 98.0 F 76 22 146/83 20 L General appearance: appears uncomfortable Eyes: nonicteric ENT: oropharynx dry Mallampati (class): 4 Neck: supple, no lymphadenopathy, JVD Effort: other (moderately labored) Auscultation: bilateral: diminished breath sounds, rhonchi Percussion: bilateral: not dull Cardiovascular: irregular rhythm Gastrointestinal: normoactive bowel sounds, soft Extremities: edema non-focal exam, pupils equal and round depressed Results - Laboratory Findings CBC and BMP: 09/24/16 05:39 09/24/16 05:39 PT/INR, D-dimer PT 15.4 Seconds (9.4-12.1) H 09/21/16 10:34 Abnormal lab findings: Abnormal lab results RBC 2.99 M/mcL (3.82-4.97) L 09/24/16 05:39 Hgb 7.7 g/dL (11.5-15.4) L 09/24/16 05:39 Hct 24.9 % (35.3-44.9) L 09/24/16 05:39 MCH 25.8 pg (28.0-33.3) L 09/24/16 05:39 MCHC 30.9 g/dL (31.6-35.5) L 09/24/16 05:39 RDW 16.1 % (11.5-14.5) H 09/24/16 05:39 MPV 9.2 fL (9.4-12.4) L 09/24/16 05:39 PT 15.4 Seconds (9.4-12.1) H 09/21/16 10:34 VBG pCO2 58 mmHg (41-51) H 09/21/16 00:44 VBG pO2 79 mmHg (25-40) H 09/21/16 00:44 VBG HCO3 35.9 mEq/L (21-27) H 09/21/16 00:44 Chloride 96 mEq/L (98-109) L 09/24/16 05:39 Carbon Dioxide 34 mEq/L (19-29) H 09/24/16 05:39 BUN 36 mg/dL (7-20) H D 09/24/16 05:39 Creatinine 1.61 mg/dL (0.57-1.11) H 09/24/16 05:39 Est GFR ( Amer) 38 (> 60) L 09/24/16 05:39 Est GFR (Non-Af Amer) 31 (> 60) L 09/24/16 05:39 Glucose 188 mg/dL (70-99) H 09/24/16 05:39 POC Glucose 194 (58-89) H 09/24/16 08:00 B-Natriuretic Peptide 678 pg/mL (0-100) H 09/20/16 18:06 Serum Total Protein 5.8 g/dL (6.0-8.3) L 09/24/16 05:39 Albumin 2.0 g/dL (3.5-5.0) L 09/24/16 05:39 Globulin 3.8 g/dL (2.4-3.5) H 09/24/16 05:39 Albumin/Globulin Ratio 0.5 (1.1-2.2) L 09/24/16 05:39 Pleural Appearance Cloudy (Clear) A 09/21/16 11:30 - Microbiology Findings Microbiology Findings: Microbiology, Last 48 Hours 09/21/16 11:30 Body Fluid Culture - Preliminary Pleural Fluid - Diagnostic Findings Chest x-ray: report reviewed, image reviewed - Clinical Findings Intake & Output: Intake & Output 09/24/16 09/24/16 09/24/16 07:59 15:59 23:59 Intake Total 0 / 0 0 / 0 0 / 0 Output Total 625 / 625 450 / 450 Balance -625 / -625 0 / 0 -450 / -450 Weight 105.7 kg 105.7 kg Consult Discharge Plan - Plan Referrals: Henrry Mccullough MD [Primary Care Provider] -
--- NOTE | 2016-09-24 19:42 | Electrocardiograph Report ---
[place] [id number] Test Date: 2016-09-23 Pat Name: Jaimee Rodriguez Department: 111 Room: [id number] Gender: F [employer]: : [id number] Requested By: Mary Alatorre Order Number: [id number] Reading MD: Colten Issa DO Measurements Intervals [place] Rate: 82 P: MD: 0 QRS: 12 QRSD: 86 T: 91 QT: 356 QTc: 395 Interpretive Statements ATRIAL FIBRILLATION LOW QRS VOLTAGE IN THE LIMB LEADS Electronically Signed On 09-24-2016 19:41:39 EST by Colten Issa DO
[2016-09-24] MEDS: Insulin DETEMIR 100 UNIT/ML X5UNITS SQ SCH (21:05)
[2016-09-25] MEDS: *HR* OxyCODONE Immed Rel 5 MG TABLET PO PRN ×2 (05:30→11:25)
[2016-09-25] MEDS: Insulin LISPRO 300 UNITS/3 ML VIAL SQ SCH ×3 (08:56→16:59)
[2016-09-25] MEDS: *HR* Heparin 5,000 UNIT/ML VIAL SQ SCH (08:56)
[2016-09-25] MEDS: Ondansetron 4 MG/2 ML VIAL IVP PRN (09:12)
[2016-09-25] MEDS: Furosemide 40 MG/4 ML VIAL IVP SCH (09:12)
[2016-09-25] MEDS: Sennosides 8.6 MG TABLET PO SCH (11:17)
[2016-09-25] MEDS: Lactulose Oral Soln 20 GM/30 ML UDC PO SCH ×3 (11:17→16:58)
[2016-09-25] MEDS: Sucralfate 1 GM TABLET PO SCH (11:17)
[2016-09-25] MEDS: Aspirin 81 MG TAB.CHEW PO SCH (11:17)
[2016-09-25] MEDS: Gabapentin 100 MG CAPSULE PO SCH (11:18)
[2016-09-25] MEDS: Folic Acid 1 MG TABLET PO SCH (11:18)
[2016-09-25] MEDS ORDERED: Simethicone 80 MG TAB.CHEW PO PRN (12:36)
--- NOTE | 2016-09-25 13:13 | Discharge Summary ---
<Tonny Martin - Last Filed: 09/25/16 18:05> Date of Encounter: 09/25/16 Time of Encounter: 10:00 - Discharge Diagnosis (1) Acute CHF Priority: Secondary Status: Acute Qualifiers: Congestive heart failure type: diastolic Qualified Code(s): I50.31 - Acute diastolic (congestive) heart failure (2) Dyspnea Priority: Primary Status: Acute Qualifiers: Dyspnea type: shortness of breath Qualified Code(s): R06.02 - Shortness of breath (3) CKD (chronic kidney disease) Priority: Secondary Status: Chronic Qualifiers: Chronic kidney disease stage: stage 3 (moderate) Qualified Code(s): N18.3 - Chronic kidney disease, stage 3 (moderate) (4) Atrial fibrillation Priority: Secondary Status: Chronic Qualifiers: Atrial fibrillation type: chronic Qualified Code(s): I48.2 - Chronic atrial fibrillation (5) Dysphagia Priority: Secondary Status: Chronic Qualifiers: Dysphagia type: unspecified Qualified Code(s): R13.10 - Dysphagia, unspecified (6) Cirrhosis of liver not due to alcohol Priority: Secondary Status: Chronic (7) DM type 2 (diabetes mellitus, type 2) Priority: Secondary Status: Chronic Qualifiers: Diabetes mellitus complication status: with kidney complications Diabetes mellitus complication detail: with nephropathy Diabetes mellitus explosive man insulin use: without explosive man use Qualified Code(s): E11.21 - Type 2 diabetes mellitus with diabetic nephropathy (8) HTN (hypertension) Priority: Secondary Status: Chronic Qualifiers: Hypertension type: unspecified secondary hypertension Qualified Code(s): I15.9 - Secondary hypertension, unspecified; I15 - Secondary hypertension (9) LITO on CPAP Priority: Secondary Status: Chronic (10) Obesity Priority: Secondary Status: Chronic Qualifiers: Obesity type: due to excess calories Obesity severity: morbid Qualified Code(s): E66.01 - Morbid (severe) obesity due to excess calories (11) DVT prophylaxis Priority: Secondary Status: Acute - Discharge Medications Home Medications: Folic Acid 1 mg PO DAILY 08/14/15 [History] GlipiZIDE [Glucotrol] 10 mg PO BID 08/14/15 [History] Metoprolol [Lopressor] 12.5 mg PO BID 08/14/15 [History] Sertraline [Zoloft] 150 mg PO DAILY 08/14/15 [History] Sucralfate [Carafate] 2 gm PO BID 08/14/15 [History] Baclofen 5 - 10 mg PO AD 03/19/16 [History] Rivaroxaban [Xarelto] 15 mg PO QPM 03/19/16 [History] Lactulose 10 gm PO QID 06/24/16 [History] Aspirin 81 mg PO DAILY 07/11/16 [History] Fluticasone/Vilanterol [Breo Ellipta 100-25 Mcg INH] 1 each IH DAILY 07/11/16 [ History] Ipratropium/Albuterol Neb [Duoneb] 3 ml IH Q6H PRN 07/11/16 [History] Pantoprazole Sodium [Protonix] 40 mg PO DAILY 07/11/16 [History] Oxycodone HCl 10 mg PO Q6H PRN #25 tablet 07/23/16 [Rx] Calcium Carbonate [Tums] 1,000 mg PO BID PRN 09/20/16 [History] Diltiazem [Cardizem] 30 mg PO TID 09/20/16 [History] Gabapentin [Neurontin] 100 mg PO BID 09/20/16 [History] Insulin DETEMIR [Levemir Flextouch] 5 unit SQ HS 09/20/16 [History] Lidocaine Patch [Lidoderm 5% patch] 1 each TP DAILY 09/20/16 [History] Nystatin POWDER [Nystop] 1 appl TP DAILY PRN 09/20/16 [History] Sennosides [Senna] 17.2 mg PO DAILY 09/20/16 [History] Simethicone [Gas-X] 120 mg PO BID PRN 09/20/16 [History] Torsemide [Demadex] 10 mg PO BID 09/20/16 [History] Allergies/Adverse Reactions: Allergies ceftriaxone [From Rocephin] Allergy (Severe, Verified 08/14/16 17:10) Anaphylaxis Occured at [facility]. Required ICU transfer, intubation, and mechanical ventilation. ciprofloxacin [From Cipro] Allergy (Mild, Verified 08/14/16 17:10) Rash sulfamethoxazole [From Bactrim] Allergy (Verified 08/14/16 17:10) See Comments trimethoprim [From Bactrim] Allergy (Verified 08/14/16 17:10) See Comments rozeta Allergy (Uncoded 06/24/16 15:20) See Comments Procedures/tests Complete & Pending: Procedures Performed prior 72 hours Category Date Time Status ECG 12 lead ECG [ECG] Routine Y 09/23/16 20:18 Completed Date of admission: 09/21/16 09:50 Primary care physician: Henrry Mccullough MD Consults: 09/21/16 09:56 Consult to Interventional Radiology [CONS] Routine Consulting Provider: Radiology Interventional Cols Reason for Consult: thoracentesis, Right>left Call Completed: Yes 09/24/16 10:55 Consult to Pulmonology [CONS] Routine Consulting Provider: Pulm Crit Care & Sleep Karen Reason for Consult: recurrent effusions, ?endobronchial lesion Call Completed: Yes Discharging clinician: Tonny Martin Anticipated date of discharge: 09/25/16 - Patient Status Disposition: Transfer SNF Condition: Fair Functional capacity at discharge: uses cane/walker Overall status at discharge: patient is progressing back to baseline - Discharge Instructions Instructions: Heart Failure (DC), Chronic Obstructive Pulmonary Disease (DC), Anemia (GEN) Follow Up With: Henrry Mccullough MD [Primary Care Provider] - Additional Instructions: Follow up with PCP within one week after discharge. - Diet and Activity Activity: increase activity as tolerated Diet: diabetic diet Interval History: Ms. Rodriguez is a 71 year old female with PMHx of Afib, CHF, CKD4, T2DM, cirrhosis of liver, HTN, HLD, LITO. Patient was sent to [facility] to shortness of breath. Earlier in the day, her oxygen saturations have dropped to 70s. Upon initial examination, patient was in severe respiratory distress and placed on BiPAP. Chest xray showed bilateral pleural effusions, and patient was placed on IV lasix. Patient had a history of recurrent right sided pleural effusion in the past. She has had chest tube placed in the past, but requested to have it removed in the middle of treatment. At that time, pulmonology was consulted, but pleurx catheter was not placed due to her cormobidities and low volume of pleural fluid at the time. She had refused bronchoscopy at that time as well. cytology of pleural fluid in the past was exudative. During current hospital stay, IR was consulted and 800ml of bloody pleural fluid was removed from the left side and sent for cytology- culture showed no growth. Patient's dyspnea was improved after the procedure. CT of chest was done and showed bilateral dense consolidation with scattered patchy ground glass opacities. Pulmonology was consulted to see this patient. Risks and benefits were explained to the patient and daughter, and patient stated she did not desire bronchoscopy because she is too high risk. Throughout the patient's hospital stay, her shortness of breath improved significantly, and she is progressing back to her baseline level. She continues to remain stable today, and is ready for discharge. Plan: referral to ECF for rehab. Follow up with PCP within one week after discharge. Hospital course: Ms. Rodriguez is a 71 year old female - Time Spent with Patient Total time spent providing and/or coordinating discharge services: - Constitutional Vitals: Temp Pulse Resp BP Pulse Ox 97.8 F 73 16 149/63 95 09/25/16 11:50 09/25/16 11:50 09/25/16 11:50 09/25/16 11:50 09/25/16 11:50 General appearance: Present: cooperative, A&O X 3, morbidly obese, pleasant, no acute distress, obese, answers questions appropriately - Head Head exam: Present: atraumatic, normocephalic - Neck Neck exam general surgery: Present: supple, trachea midline - Respiratory Additional comments: fine crackles present in lower lobes bilaterally. - Cardiovascular Cardiovascular exam: Present: RRR - GI/Abdominal GI/Abdominal exam: Present: normal bowel sounds, soft. Absent: tenderness - Extremities Exam Additional comments: upper extremity bruising present. Lower extremity +2 pitting edema. - Psychiatric Psychiatric exam: Present: normal mood - VTE Documentation of Mechanical Device: Intermittent pneumatic compression device <Mike Pérez - Last Filed: 09/25/16 18:27> Procedures/tests Complete & Pending: Procedures Performed prior 72 hours Category Date Time Status ECG 12 lead ECG [ECG] Routine Y 09/23/16 20:18 Completed Date of admission: 09/21/16 09:50 Primary care physician: Henrry Mccullough MD Consults: 09/21/16 09:56 Consult to Interventional Radiology [CONS] Routine Consulting Provider: Radiology Interventional Cols Reason for Consult: thoracentesis, Right>left Call Completed: Yes 09/24/16 10:55 Consult to Pulmonology [CONS] Routine Consulting Provider: Pulm Crit Care & Sleep Karen Reason for Consult: recurrent effusions, ?endobronchial lesion Call Completed: Yes Hospital course: Ms. Rodriguez is a 71 year old female - Time Spent with Patient Total time spent providing and/or coordinating discharge services: 38min - Constitutional Vitals: Temp Pulse Resp BP Pulse Ox 97.5 F L 83 18 177/91 91 L 09/25/16 16:02 09/25/16 16:02 09/25/16 16:02 09/25/16 16:02 09/25/16 16:02 - Attending Attestation I examined this patient and my medical decision-making was reviewed with the Resident Physician on 09/25/16. I agree with the documented findings, disposition and treatment plan as described except to the extent set forth below. Ms. Rodriguez is resting on her side. She is having some joint pain. No chest pain. Exam Alert Comfortable Heart reg Lungs with scant wheeze Plan D/C to SNF today. Further diagnoses and plan as above.
--- NOTE | 2016-09-25 13:23 | Physician Discharge Referral ---
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 Prognosis: Fair Aware of Diagnosis: Family Aware of Prognosis: Family - Transfer Medications Home Medications: Folic Acid 1 mg PO DAILY 08/14/15 [History] GlipiZIDE [Glucotrol] 10 mg PO BID 08/14/15 [History] Metoprolol [Lopressor] 12.5 mg PO BID 08/14/15 [History] Sertraline [Zoloft] 150 mg PO DAILY 08/14/15 [History] Sucralfate [Carafate] 2 gm PO BID 08/14/15 [History] Baclofen 5 - 10 mg PO AD 03/19/16 [History] Rivaroxaban [Xarelto] 15 mg PO QPM 03/19/16 [History] Lactulose 10 gm PO QID 06/24/16 [History] Aspirin 81 mg PO DAILY 07/11/16 [History] Fluticasone/Vilanterol [Breo Ellipta 100-25 Mcg INH] 1 each IH DAILY 07/11/16 [ History] Ipratropium/Albuterol Neb [Duoneb] 3 ml IH Q6H PRN 07/11/16 [History] Pantoprazole Sodium [Protonix] 40 mg PO DAILY 07/11/16 [History] Oxycodone HCl 10 mg PO Q6H PRN #25 tablet 07/23/16 [Rx] Calcium Carbonate [Tums] 1,000 mg PO BID PRN 09/20/16 [History] Diltiazem [Cardizem] 30 mg PO TID 09/20/16 [History] Gabapentin [Neurontin] 100 mg PO BID 09/20/16 [History] Insulin DETEMIR [Levemir Flextouch] 5 unit SQ HS 09/20/16 [History] Lidocaine Patch [Lidoderm 5% patch] 1 each TP DAILY 09/20/16 [History] Nystatin POWDER [Nystop] 1 appl TP DAILY PRN 09/20/16 [History] Sennosides [Senna] 17.2 mg PO DAILY 09/20/16 [History] Simethicone [Gas-X] 120 mg PO BID PRN 09/20/16 [History] Torsemide [Demadex] 10 mg PO BID 09/20/16 [History] Allergies/Adverse Reactions: Allergies ceftriaxone [From Rocephin] Allergy (Severe, Verified 08/14/16 17:10) Anaphylaxis Occured at [facility]. Required ICU transfer, intubation, and mechanical ventilation. ciprofloxacin [From Cipro] Allergy (Mild, Verified 08/14/16 17:10) Rash sulfamethoxazole [From Bactrim] Allergy (Verified 08/14/16 17:10) See Comments trimethoprim [From Bactrim] Allergy (Verified 08/14/16 17:10) See Comments rozeta Allergy (Uncoded 06/24/16 15:20) See Comments - Respiratory Orders Oxygen / L per min (2L NC) Smoking Cessation: Smoking cessation has been advised. For more information, call the [place] Tobacco Quit Line at 4-093-LTGZ-NOW. - Lab Orders Lab Orders: 2 Step Mantoux Test per State regulation - Ancillary Orders May use pressure relief devices daily prn - Advance Directives Code Status: Full Code - History and Physical History/Physical reviewed & approved w/add comments: lower extremity edema improved, patient no longer short of breath - Mobility Orders Ambulate - Rehabiliation Orders Rehab Potential: Fair Rehab Orders: Evaluation for Physical Therapy, Evaluation for Occupational Therapy, Evaluation for Speech Therapy - Treatments Skin tear care topically daily PRN per policy, May check for fecal impaction rectally daily PRN, Fleet enema rectally every other day PRN cleansing purposes - Diet Orders No Concentrated Sweets CERTIFICATION: I certify that the transfer of the above named patient to an Extended Care Facility is necessary for the continuing treatment of the diagnosis listed. The above information is true and accurate reflection of patient's current condition. Confidential - Redisclosure prohibited without a patient's written consent. <Mike Pérez - Last Filed: 09/25/16 15:32> [facility] Referral Info Transfer To: [place] - Respiratory Orders Smoking Cessation: Smoking cessation has been advised. For more information, call the [place] Tobacco Quit Line at 8-156-HSDDNOW. CERTIFICATION: I certify that the transfer of the above named patient to an Extended Care Facility is necessary for the continuing treatment of the diagnosis listed. The above information is true and accurate reflection of patient's current condition. Confidential - Redisclosure prohibited without a patient's written consent.
[2016-09-25 16:07] VITALS: BP 177/91
== END 2016-09-25 17:23 | DRG 291 ==
LOC: EMEROO 17:23 → 3BNU 17:23 → 2NNU 20:43 → 2NENU 09-21 03:10 → SUATTDRO 09-21 09:50
PROVIDERS: ADMIT Internal Medicine; ATTEND Internal Medicine

== ENCOUNTER 2016-11-12 07:41 | Inpatient (IN) ==
--- NOTE | 2016-11-12 07:58 | Emergency Department Note ---
Disposition Clinical Impression: CHF (congestive heart failure) Qualifiers: Congestive heart failure type: unspecified congestive heart failure type Congestive heart failure chronicity: unspecified congestive heart failure chronicity Qualified Code(s): I50.9 - Heart failure, unspecified Pulmonary edema Qualifiers: Chronicity: acute Qualified Code(s): J81.0 - Acute pulmonary edema Disposition: Admitted As Inpatient Condition: Good Referrals: Henrry Mccullough MD [Primary Care Provider] - Time of Disposition: 10:29 General Adult HPI - General Chief complaint: ED Weakness Stated complaint: Generalized Weakness Time Seen by Provider: 11/12/16 07:46 Source: patient, EMS Limitations: no limitations Nursing Notes Reviewed: Yes Vital Signs Reviewed: Yes - History of Present Illness HPI Narrative: Patient presents emergency room today for evaluation of generalized weakness. She was just admitted and discharged home to a rehabilitation facility. She left the rehabilitation facility past 3 days ago. Since going home she has not been able to care for self with her daughter's help. Patient comes in today complaining of fluid buildup, weakness, pain in her lower back. All the symptoms are chronic according to her. She is denying chest pain shortness of breath headache vision changes nausea vomiting or diarrhea. Denies fevers or chills. She just feels like she is weak all over and cannot take care of herself at home Onset (ago): day(s) Radiation: non-radiation Pain Severity: severe Pain Scale: 8 Consistency: constant Improves with: nothing Worsens with: nothing Associated symptoms: Reports: weakness Treatments Prior to Arrival: none - Related Data Home Medications Medication Instructions Recorded Confirmed Folic Acid 1 mg PO DAILY 08/14/15 09/20/16 GlipiZIDE [Glucotrol] 10 mg PO BID 08/14/15 09/20/16 Metoprolol [Lopressor] 12.5 mg PO BID 08/14/15 09/20/16 Sertraline [Zoloft] 150 mg PO DAILY 08/14/15 09/20/16 Sucralfate [Carafate] 2 gm PO BID 08/14/15 09/20/16 Baclofen 5 - 10 mg PO AD 03/19/16 09/20/16 Rivaroxaban [Xarelto] 15 mg PO QPM 03/19/16 09/20/16 Lactulose 10 gm PO QID 06/24/16 09/20/16 Aspirin 81 mg PO DAILY 07/11/16 09/20/16 Fluticasone/Vilanterol [Breo 1 each IH DAILY 07/11/16 09/20/16 Ellipta 100-25 Mcg INH] Ipratropium/Albuterol Neb [Duoneb] 3 ml IH Q6H PRN 07/11/16 09/20/16 Pantoprazole Sodium [Protonix] 40 mg PO DAILY 07/11/16 09/20/16 Calcium Carbonate [Tums] 1,000 mg PO BID PRN 09/20/16 09/20/16 Diltiazem [Cardizem] 30 mg PO TID 09/20/16 09/20/16 Gabapentin [Neurontin] 100 mg PO BID 09/20/16 09/20/16 Insulin DETEMIR [Levemir Flextouch] 5 unit SQ HS 09/20/16 09/20/16 Lidocaine Patch [Lidoderm 5% patch] 1 each TP DAILY 09/20/16 09/20/16 Nystatin POWDER [Nystop] 1 appl TP DAILY PRN 09/20/16 09/20/16 Sennosides [Senna] 17.2 mg PO DAILY 09/20/16 09/20/16 Simethicone [Gas-X] 120 mg PO BID PRN 09/20/16 09/20/16 Torsemide [Demadex] 10 mg PO BID 09/20/16 09/20/16 Previous Rx's Medication Instructions Recorded Oxycodone HCl 10 mg PO Q6H PRN #25 tablet 07/23/16 Allergies Allergy/AdvReac Type Severity Reaction Status Date / Time ceftriaxone [From Rocephin] Allergy Severe Anaphylaxis Verified 08/14/16 17:10 ciprofloxacin [From Cipro] Allergy Mild Rash Verified 08/14/16 17:10 sulfamethoxazole Allergy See Verified 08/14/16 17:10 [From Bactrim] Comments trimethoprim [From Bactrim] Allergy See Verified 08/14/16 17:10 Comments rozeta Allergy See Uncoded 06/24/16 15:20 Comments All systems ED: reviewed and negative except as stated. Constitutional: Reports: weakness. Denies: fever, chills Cardiovascular: Reports: orthopnea, edema. Denies: chest pain, palpitations, dyspnea on exertion Respiratory: Denies: cough, dyspnea, wheezes Gastrointestinal: Denies: abdominal pain, nausea, vomiting, diarrhea Musculoskeletal: Denies: back pain, neck pain Past Medical History - Past Medical History Attestation: Yes The following information was validated with the patient. 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 Absent: respiratory distress, wheezes, stridor - Cardiovascular Cardiovascular exam: Present: regular rate, normal rhythm, normal heart sounds - Abdominal Exam Abdominal exam: Present: soft, Non-Tender. Absent: tenderness, distention, guarding, rebound, rigidity, normal bowel sounds, Dela Cruz's sign, Rovsing's sign , tenderness at McBurney's Point - Extremities Exam Extremities exam: Present: normal inspection, full ROM, normal capillary refill , pedal edema. Absent: tenderness - Back Exam Back exam: Present: normal inspection, full ROM. Absent: tenderness - Neurological Exam Neurological exam: Present: alert, oriented X3, CN II-XII intact Course Course Narrative: Patient seen and examined his arrival. See history of present illness. 71-year -old female presents from home today. She was recently discharged from a rehabilitation facility. She went home 3 days ago. She has been trying to manage at home with her daughter's help. She has not been able to do so. Patient has multiple complaints including weakness swelling increased shortness of breath fluid accumulation or extremities. Patient denies chest pain fevers chills nausea vomiting diarrhea denies headache vision changes. Shortness of breath is only one trying to walk with her walker at home. Patient appears to be decompensating at home without appropriate help. She has not been evaluated for home health aids and does not have what appears to be appropriate outside of Hospital healthcare in place at this time. Patient stable vital signs reviewed on presentation. Heart rate is normal pulse ox was 70 initially but she is on 3 L oxygen at home once put on 3 L of oxygen by nasal cannula she came back up into the 92-94% range. Otherwise patient has clear lungs heart is regular. She has pitting edema +3 up to the knees bilaterally in lower extremities. No acute signs of neurovascular or neurologic deficits on exam. Patient speaks in full sentences she describes just generalized weakness. I asked her directly if she was here because she felt ill or has been sick where she was here because she has not been able to care of herself at home. Patient voided the answer that question. It seems that she is mainly here for repeat evaluation and possible placement again. Patient stable no family with her this time. Evaluation for infectious etiology ordered this point. Urinalysis by straight catheter chest x-ray EKG troponin and basic laboratory workup ordered. Patient does have known kidney disease has a fistula in place was never received dialysis. Disposition pending treatment course workup and evaluation. Social work will be consult once they arrive today - Reevaluation(s) Reevaluation #1: Daughters not the bedside in the emergency room. Discussed the presentation with her. According to her the patient was complaining of generalized weakness and having a tough time walker on the house. It seems that there has not been communication between the daughter and the mother. The mother does not want to disappoint the daughter or the a burden to her and she does not feel safe at home at this time. Labs are coming back within the patient's normal at this time. We will contain a monitor as workup is completed and will determine disposition. lime kiln worker to consult once they arrive here in the emergency room for evaluation and make sure the patient is appropriate outpatient treatment available to her. Disposition pending treatment course. Time: 09:07 Reevaluation #2: Patient found to have diffuse pulmonary edema. Social work is at the bedside trying to help the patient. Family does not have appropriate outpatient treatment available. The patient will be admitted this time for CHF exacerbation. Patient stable. Family informed. Admission process to be completed this point Consultation placed and reviewed with the on-call primary care provider Dr. riojas. We reviewed the patient's presentation symptoms medical history. She will be brought in for what appears to be acute exacerbation of congestive heart failure with pulmonary edema. Social workers evaluated. Inpatient evaluation treatment course to be completed this time Time: 10:15 Vital Signs Temperature 97.7 F 11/12/16 07:43 Pulse Rate 84 11/12/16 07:43 Respiratory Rate 18 11/12/16 07:43 Blood Pressure 148/87 11/12/16 07:43 O2 Sat by Pulse Oximetry 85 11/12/16 07:43 Temperature 97.7 F 11/12/16 15:57 Pulse Rate 76 11/12/16 15:57 Respiratory Rate 16 11/12/16 15:57 Blood Pressure 126/67 11/12/16 15:57 O2 Sat by Pulse Oximetry 98 11/12/16 15:57 Oxygen Delivery Oxygen Delivery Nasal Cannula Medical Decision Making - MDM Narrative Medical decision making narrative: Generalized weakness, failure of outpatient management, failure to thrive - Medical Records Medical records reviewed: Yes I reviewed the patient's medical records. - Lab Data Lab results reviewed: Yes I reviewed the patient's lab results. Result diagrams: 11/12/16 08:42 11/12/16 08:42 Lab Results 11/12/16 11/12/16 11/12/16 Range/Units 07:58 08:42 08:42 WBC 9.4 (4.3-11.1) K/mcL RBC 3.68 L (3.82-4.97) M/mcL Hgb 8.8 L (11.5-15.4) g/dL Hct 29.5 L (35.3-44.9) % MCV 80.2 L (83.0-100.0) fL MCH 23.9 L (28.0-33.3) pg MCHC 29.8 L (31.6-35.5) g/dL RDW 16.2 H (11.5-14.5) % Plt Count 265 (140-400) K/mcL MPV 8.6 L (9.4-12.4) fL Immature Gran % 0.7 (0-4) % Seg Neutrophils % 84.5 % Lymphocytes % 5.9 % Monocytes % 7.6 % Eosinophils % 1.0 % Basophils % 0.3 % Neutrophils # 7.9 (1.6-8.9) K/mcL Lymphocytes # 0.6 (0.6-4.6) K/mcL Monocytes # 0.7 (0.0-1.3) K/mcL Eosinophils # 0.1 (0.0-0.6) K/mcL Basophils # 0.0 (0.0-0.2) K/mcL Immature Plt Fraction 1.2 (1.1-6.1) % Sodium 135 L (136-145) mEq/L Potassium 4.1 (3.5-4.5) mEq/L Chloride 93 L (98-109) mEq/L Carbon Dioxide 34 H (19-29) mEq/L BUN 24 H (7-20) mg/dL Creatinine 1.38 H (0.57-1.11) mg/dL Est GFR ( Amer) 46 L (> 60) Est GFR (Non-Af Amer) 38 L (> 60) BUN/Creatinine Ratio 17 (6-26) Glucose 200 H (70-99) mg/dL POC Glucose (58-89) Calculated Osmolality 290 (280-300) Lactic Acid (0.5-2.2) mmol/L Calcium 9.6 (8.6-10.8) mg/dL Total Bilirubin 0.5 (0.2-1.2) mg/dL AST 14 (5-34) Units/L ALT 10 (0-55) Units/L Alkaline Phosphatase 91 (38-126) Units/L Troponin I (0-0.03) ng/mL B-Natriuretic Peptide (0-100) pg/mL Serum Total Protein 6.5 (6.0-8.3) g/dL Albumin 2.6 L (3.5-5.0) g/dL Globulin 3.9 H (2.4-3.5) g/dL Albumin/Globulin Ratio 0.7 L (1.1-2.2) Urine Color Yellow (Yellow) Urine Clarity Clear (Clear) Urine pH 7.5 (5.0-8.0) pH Units Ur Specific [place] 1.010 (1.010-1.025) Urine Protein 30 H (Neg-Trace) mg/dL Urine Glucose (UA) Normal (Normal) mg/dL Urine Ketones Negative (Negative) mg/dL Urine Blood Small H (Negative) Urine Nitrite Negative (Negative) Urine Bilirubin Negative (Negative) Urine Urobilinogen Normal (Normal) mg/dL Ur Leukocyte Esterase Small H (Negative) Urine Microscopic RBC 5-15 H (0-3) per hpf Urine Microscopic WBC 5-15 H (0-3) per hpf Ur Squamous Epith Cells Many H (None-Few) per lpf Urine Bacteria None Seen (None-Few) per hpf Hyaline Casts None Seen (None-Few) per lpf Ur Culture Indicated? YES A (NO) 11/12/16 11/12/16 11/12/16 Range/Units 08:42 08:42 08:42 WBC (4.3-11.1) K/mcL RBC (3.82-4.97) M/mcL Hgb (11.5-15.4) g/dL Hct (35.3-44.9) % MCV (83.0-100.0) fL MCH (28.0-33.3) pg MCHC (31.6-35.5) g/dL RDW (11.5-14.5) % Plt Count (140-400) K/mcL MPV (9.4-12.4) fL Immature Gran % (0-4) % Seg Neutrophils % % Lymphocytes % % Monocytes % % Eosinophils % % Basophils % % Neutrophils # (1.6-8.9) K/mcL Lymphocytes # (0.6-4.6) K/mcL Monocytes # (0.0-1.3) K/mcL Eosinophils # (0.0-0.6) K/mcL Basophils # (0.0-0.2) K/mcL Immature Plt Fraction (1.1-6.1) % Sodium (136-145) mEq/L Potassium (3.5-4.5) mEq/L Chloride (98-109) mEq/L Carbon Dioxide (19-29) mEq/L BUN (7-20) mg/dL Creatinine (0.57-1.11) mg/dL Est GFR ( Amer) (> 60) Est GFR (Non-Af Amer) (> 60) BUN/Creatinine Ratio (6-26) Glucose (70-99) mg/dL POC Glucose (58-89) Calculated Osmolality (280-300) Lactic Acid 0.7 (0.5-2.2) mmol/L Calcium (8.6-10.8) mg/dL Total Bilirubin (0.2-1.2) mg/dL AST (5-34) Units/L ALT (0-55) Units/L Alkaline Phosphatase (38-126) Units/L Troponin I 0.03 (0-0.03) ng/mL B-Natriuretic Peptide 536 H (0-100) pg/mL Serum Total Protein (6.0-8.3) g/dL Albumin (3.5-5.0) g/dL Globulin (2.4-3.5) g/dL Albumin/Globulin Ratio (1.1-2.2) Urine Color (Yellow) Urine Clarity (Clear) Urine pH (5.0-8.0) pH Units Ur Specific [place] (1.010-1.025) Urine Protein (Neg-Trace) mg/dL Urine Glucose (UA) (Normal) mg/dL Urine Ketones (Negative) mg/dL Urine Blood (Negative) Urine Nitrite (Negative) Urine Bilirubin (Negative) Urine Urobilinogen (Normal) mg/dL Ur Leukocyte Esterase (Negative) Urine Microscopic RBC (0-3) per hpf Urine Microscopic WBC (0-3) per hpf Ur Squamous Epith Cells (None-Few) per lpf Urine Bacteria (None-Few) per hpf Hyaline Casts (None-Few) per lpf Ur Culture Indicated? (NO) 11/12/16 Range/Units 15:30 WBC (4.3-11.1) K/mcL RBC (3.82-4.97) M/mcL Hgb (11.5-15.4) g/dL Hct (35.3-44.9) % MCV (83.0-100.0) fL MCH (28.0-33.3) pg MCHC (31.6-35.5) g/dL RDW (11.5-14.5) % Plt Count (140-400) K/mcL MPV (9.4-12.4) fL Immature Gran % (0-4) % Seg Neutrophils % % Lymphocytes % % Monocytes % % Eosinophils % % Basophils % % Neutrophils # (1.6-8.9) K/mcL Lymphocytes # (0.6-4.6) K/mcL Monocytes # (0.0-1.3) K/mcL Eosinophils # (0.0-0.6) K/mcL Basophils # (0.0-0.2) K/mcL Immature Plt Fraction (1.1-6.1) % Sodium (136-145) mEq/L Potassium (3.5-4.5) mEq/L Chloride (98-109) mEq/L Carbon Dioxide (19-29) mEq/L BUN (7-20) mg/dL Creatinine (0.57-1.11) mg/dL Est GFR ( Amer) (> 60) Est GFR (Non-Af Amer) (> 60) BUN/Creatinine Ratio (6-26) Glucose (70-99) mg/dL POC Glucose 228 H (58-89) Calculated Osmolality (280-300) Lactic Acid (0.5-2.2) mmol/L Calcium (8.6-10.8) mg/dL Total Bilirubin (0.2-1.2) mg/dL AST (5-34) Units/L ALT (0-55) Units/L Alkaline Phosphatase (38-126) Units/L Troponin I (0-0.03) ng/mL B-Natriuretic Peptide (0-100) pg/mL Serum Total Protein (6.0-8.3) g/dL Albumin (3.5-5.0) g/dL Globulin (2.4-3.5) g/dL Albumin/Globulin Ratio (1.1-2.2) Urine Color (Yellow) Urine Clarity (Clear) Urine pH (5.0-8.0) pH Units Ur Specific [place] (1.010-1.025) Urine Protein (Neg-Trace) mg/dL Urine Glucose (UA) (Normal) mg/dL Urine Ketones (Negative) mg/dL Urine Blood (Negative) Urine Nitrite (Negative) Urine Bilirubin (Negative) Urine Urobilinogen (Normal) mg/dL Ur Leukocyte Esterase (Negative) Urine Microscopic RBC (0-3) per hpf Urine Microscopic WBC (0-3) per hpf Ur Squamous Epith Cells (None-Few) per lpf Urine Bacteria (None-Few) per hpf Hyaline Casts (None-Few) per lpf Ur Culture Indicated? (NO) - Radiology Data Radiology results reviewed: Yes I reviewed the patient's radiology results. - EKG Data EKG #1 EKG attestation: Yes I reviewed and interpreted this EKG. Rhythm: A.Fib [place]/QRS: normal Voltage: decreased voltage throughout When compared to previous EKG there are: no significant changes Interpretation: no acute changes, unchanged when compared to prior tracing (date ) Attestation Statement - Attestation Attestation: I examined this patient and my medical decision-making was reviewed with the LABOR [employer] BUSINESS REPRESENTATIVE/PA/Advanced Practice Nurse/Resident Physician. I agree with the documented findings, disposition and treatment plan as described except to the extent set forth below. ' Patient presents to the emergency department feeling weak. Patient was just discharged from rehabilitation facility a couple of days ago. She has been staying with her daughter. Says she feels weak all over. Was to the point she could not get up and go to the bathroom. She called 911. Patient states she is unsure what she would like to see as far as the disposition. Denies any chest pain. She does admit to some shortness of breath. On examination she is in no acute distress with diminished but clear lungs. Plan. Basic labs and chest x-ray. Urinalysis. Awaiting family arrival. patient with decompensated heart failure. Admitted to medicine.
[2016-11-12 08:45] LABS: Bilirubin,Urine Negative (Negative); Blood,Urine Small (Negative); Clarity,Urine Clear (Clear); Color,Urine Yellow (Yellow); Glucose,Urine (UA) Normal (Normal); Ketones,Urine Negative (Negative); Leukocyte Esterase,Urine Small (Negative); Nitrite,Urine Negative (Negative); PH,Urine 7.5 pH Units (5.0-8.0); Protein,Urine 30 mg/dL (Neg-Trace); Urobilinogen,Urine Normal (Normal)
[2016-11-12 08:48] LABS: Bacteria,Urine None Seen per hpf (None-Few); Hyaline Casts,Urine None Seen per lpf (None-Few); Squamous Epithelial Cell,Urine Many per lpf (None-Few)
[2016-11-12 08:50] LABS: Basophils % 0.3 %; Eosinophils # 0.1 K/mcL (0.0-0.6); Hematocrit 29.5 % (35.3-44.9); Hemoglobin 8.8 g/dL (11.5-15.4); Immature Granulocytes % 0.7 % (0-4); Immature Platelets 1.2 % (1.1-6.1); Lymphocytes # 0.6 K/mcL (0.6-4.6); Lymphocytes % 5.9 %; Mean Corpuscular HGB Conc 29.8 g/dL (31.6-35.5); Mean Corpuscular Hemoglobin 23.9 pg (28.0-33.3); Mean Corpuscular Volume 80.2 fL (83.0-100.0); Mean Platelet Volume 8.6 fL (9.4-12.4); Monocytes # 0.7 K/mcL (0.0-1.3); Monocytes % 7.6 %; Neutrophils # 7.9 K/mcL (1.6-8.9); Platelet Count 265 K/mcL (140-400); Red Blood Count 3.68 M/mcL (3.82-4.97); Red Cell Distribution Width 16.2 % (11.5-14.5); Segmented Neutrophils % 84.5 %
[2016-11-12 09:03] LABS: Albumin 2.6 g/dL (3.5-5.0); Albumin/Globulin Ratio 0.7 (1.1-2.2); Bilirubin,Total 0.5 mg/dL (0.2-1.2); Calcium 9.6 mg/dL (8.6-10.8); Globulin 3.9 g/dL (2.4-3.5); Potassium 4.1 mEq/L (3.5-4.5); Total Protein 6.5 g/dL (6.0-8.3)
[2016-11-12] MEDS ORDERED: Naloxone 0.4 MG/ML INJ IVP PRN (12:15)
--- NOTE | 2016-11-12 12:15 | Internal Med History&Physical ---
Date of Encounter: 11/12/16 Time of Encounter: 12:15 Assessment and Plan (1) Acute exacerbation of CHF (congestive heart failure) Current visit: No Status: Resolved Worsening of congestive heart failure: -Likely precipitating factor underlying urinary tract infection. Plan: -Restrict fluid intake to 1.5 L per day. -Strict intake/output. -Intravenous furosemide 20 mg twice a day. -Monitor kidney function very closely. -Repeat x-ray chest in 1-2 days. -If patient clinically worsens then consider BiPAP. Qualifiers: Congestive heart failure type: diastolic Qualified Code(s): I50.33 - Acute on chronic diastolic (congestive) heart failure (2) Urinary tract infection Current visit: Yes Status: Acute Patient is a current urinary tract infection. -07/2016-Enterobacteriaceae specie: Multi drug resistant organism -02/2016-Enterobacteriaceae aeruginosa: Sensitive to meropenem/resistant to ceftriaxone Plan: - In view of MDRO in July, will start patient on Ertapenum in a renally adjusted doses. -Nephrology contacted. -Plan discussed with nephrology. Qualifiers: Urinary tract infection type: acute cystitis Hematuria presence: without hematuria Qualified Code(s): N30.00 - Acute cystitis without hematuria (3) DM (diabetes mellitus), type 2 Current visit: No Status: Acute Will continue home dose of insulin. ACHS Qualifiers: Diabetes mellitus complication status: with unspecified complications Diabetes mellitus longterm insulin use: with longterm use Qualified Code(s) : E11.8 - Type 2 diabetes mellitus with unspecified complications; Z79.4 - care home (current) use of insulin (4) Atrial fibrillation, permanent Current visit: No Status: Chronic On ramandeep lesvia, anticoagulated with Xarelto (5) DVT prophylaxis Current visit: No Status: Acute Xarelto Medical decision making: This patient has [id number] risk of worsening present condition in spite of being on appropriate medical care. Internal Medicine - H&P: HPI Chief complaint: SOB Admitted From: Emergency Dept Plans for Post Hospital Care: Transfer Snf Facility History of present illness: PCP: Dr Leon. Keyboarding Clerk : Dr Bowden Brief PMH: Diabetes mellitus, Hypertension, CKD stage IV, congestive heart failure, atrial fibrillation History of present illness: Patient was in an extended care facility for more than 2 weeks. From there patient went home she recovered from her illness. Within a couple of days patient's daughter noted that patient has a persistent shortness of breath. She also claims that patient has dysuria. Patient also complains of increased frequency of urination and foul smelling urine. Patient denies palpitations, dizziness, diarrhea and abdominal pain. Patient's daughter was concerned regarding ongoing symptom for more than 3 days. This was the reason she was brought mother to emergency room for further evaluation. Workup in the emergency room: Patient was evaluated in the emergency room. X- ray chest was done. X-ray chest was suggestive of fluid overload. Urinalysis was suggestive of possible infection. Reason for admission: Possible precipitation of congestive heart failure due to urinary tract infection and a case of chronic kidney disease. Family history: Noncontributory Past Med Surg Social Fam HX - Past Medical History Medical history: arthritis, atrial fibrillation, cirrhosis, CHF, COPD, diabetes , GERD, hyperlipidemia, hypertension, renal disease, other Psychiatric history: anxiety, panic disorder - Past Surgical History Surgical History: cholecystectomy, hysterectomy - Social History Smoking Status: Former smoker Smokeless Tobacco Status: No Alcohol use: none Drug use: none - Family History Mother Living Status: Hx Family Cardiac Disorders: Yes (atrial fibrillation) Hx Family GI Disorders: Yes (Polyps) Hx Family Endocrine Disorder: Yes (DM) Father Living Status: Hx Family Cardiac Disorders: Yes (HTN) Hx Family Cancer: Yes (Leukemia) Sister Living Status: Still Living Hx Family Cancer: Yes (Breast Cancer, age 40's) Hx Family Endocrine Disorder: Yes (diabetes mellitus) Brother Living Status: Still Living Hx Family Cardiac Disorders: No Hx Family Respiratory Disorders: No Hx Family Cancer: No Hx Family GI Disorders: No Hx Family Endocrine Disorder: Yes Hx Family Neuromuscular Disorders: No Hx Family Neurologic Disorders: No Hx Family HEENT Disorders: No Hx Family Autoimmune Disorders: No Internal Medicine - H&P: Meds Folic Acid 1 mg PO DAILY 08/14/15 [History] GlipiZIDE [Glucotrol] 10 mg PO BID 08/14/15 [History] Metoprolol [Lopressor] 12.5 mg PO BID 08/14/15 [History] Sertraline [Zoloft] 150 mg PO DAILY 08/14/15 [History] Sucralfate [Carafate] 2 gm PO BID 08/14/15 [History] Baclofen 5 - 10 mg PO AD 03/19/16 [History] Rivaroxaban [Xarelto] 15 mg PO QPM 03/19/16 [History] Lactulose 10 gm PO QID 06/24/16 [History] Aspirin 81 mg PO DAILY 07/11/16 [History] Fluticasone/Vilanterol [Breo Ellipta 100-25 Mcg INH] 1 each IH DAILY 07/11/16 [ History] Ipratropium/Albuterol Neb [Duoneb] 3 ml IH Q6H PRN 07/11/16 [History] Pantoprazole Sodium [Protonix] 40 mg PO DAILY 07/11/16 [History] Oxycodone HCl 10 mg PO Q6H PRN #25 tablet 07/23/16 [Rx] Calcium Carbonate [Tums] 1,000 mg PO BID PRN 09/20/16 [History] Diltiazem [Cardizem] 30 mg PO TID 09/20/16 [History] Gabapentin [Neurontin] 100 mg PO BID 09/20/16 [History] Insulin DETEMIR [Levemir Flextouch] 5 unit SQ HS 09/20/16 [History] Lidocaine Patch [Lidoderm 5% patch] 1 each TP DAILY 09/20/16 [History] Nystatin POWDER [Nystop] 1 appl TP DAILY PRN 09/20/16 [History] Sennosides [Senna] 17.2 mg PO DAILY 09/20/16 [History] Simethicone [Gas-X] 120 mg PO BID PRN 09/20/16 [History] Torsemide [Demadex] 10 mg PO BID 09/20/16 [History] Allergies ceftriaxone [From Rocephin] Allergy (Severe, Verified 08/14/16 17:10) Anaphylaxis Occured at [facility]. Required ICU transfer, intubation, and mechanical ventilation. ciprofloxacin [From Cipro] Allergy (Mild, Verified 08/14/16 17:10) Rash sulfamethoxazole [From Bactrim] Allergy (Verified 08/14/16 17:10) See Comments trimethoprim [From Bactrim] Allergy (Verified 08/14/16 17:10) See Comments rozeta Allergy (Uncoded 06/24/16 15:20) See Comments All Systems PM: A 10-system review of systems was performed and is negative for pertinent findings except as documented above in the HPI. - Constitutional Constitutional: no chills, no fever(s), no night sweats - EENT Eyes: no change in vision, no discharge, no pain, no photophobia Ears: no ear discharge, no ear pain, no tinnitus Nose, mouth and throat: no dysphagia, no nasal discharge, no neck pain, no sore throat - Cardiovascular Cardiovascular ROS IM: no chest pain, no diaphoresis, no dyspnea, no lightheadedness, no palpitations, no syncope - Respiratory Respiratory: no cough, no dyspnea, no wheezing, no excessive phlegm production - Gastrointestinal Gastrointestinal: no abdominal pain, no diarrhea, no hematemesis, no hematochezia, no melena, no nausea, no vomiting - Genitourinary Genitourinary: no change in urinary stream, no dysuria, no flank pain, no hematuria - Musculoskeletal Musculoskeletal ROS IM: no numbness, no tingling - Integumentary Integumentary IM: no rash, no unusual bruising - Neurological Neurological ROS: no confusion, no convulsions, no focal weakness, no numbness, no tingling, no tremor(s) - Hematologic/Lymphatic Hematologic/Lymphatic: no easy bruising - Constitutional Vitals: Temp Pulse Resp BP Pulse Ox 97.7 F 76 18 158/84 95 11/12/16 07:43 11/12/16 10:15 11/12/16 10:15 11/12/16 10:15 11/12/16 12:07 General appearance: Present: A&O X 3, pleasant, no acute distress, answers questions appropriately - Head Head exam: Present: atraumatic, normocephalic - Eye Eye exam: Present: PERRL, conjuntiva pink, sclera anicteric Pupils: Present: PERRL - Neck Neck exam general surgery: Present: supple, trachea midline. Absent: lymphadenopathy - Respiratory Respiratory exam: Present: CTAB. Absent: accessory muscle use, rales, rhonchi, wheezes - Cardiovascular Cardiovascular exam: Present: RRR, +S1, +S2. Absent: diastolic murmur, gallop, rubs, systolic murmur - GI/Abdominal GI/Abdominal exam: Present: normal bowel sounds, soft, no peritoneal signs. Absent: distended, tenderness - Extremities Exam Extremities exam: Present: warm, radial pulses palpable and symetrical. Absent : calf tenderness, cyanotic, pedal edema - Neurological Exam Neurological exam: Present: CN II-XII intact, oriented X3, no focal deficits. Absent: pronater drift, facial droop, speech deficit - Skin Skin exam: Present: dry, intact Internal Med - H&P Results - Labs CBC & Chem 7: 11/12/16 08:42 11/12/16 08:42
[2016-11-12] MEDS ORDERED: Ipratropium/Albuterol Neb 3 ML IH PRN (12:21)
[2016-11-12] MEDS ORDERED: Dextrose Gel 15 GM PO PRN ×4 (13:36→18:22)
[2016-11-12] MEDS ORDERED: D5% in Water 1,000 ML IVC PRN ×2 (13:36→18:22)
[2016-11-12] MEDS ORDERED: *HR* Dextrose 50 % in Water (Syg) 50 ML SYRINGE IVP PRN ×2 (13:36→18:22)
[2016-11-12] MEDS: Lactulose Oral Soln 20 GM/30 ML UDC PO SCH ×3 (15:04→20:47)
[2016-11-12] MEDS: *HR* OxyCODONE Immed Rel 5 MG TABLET PO PRN (15:12)
[2016-11-12] MEDS: *HR* Rivaroxaban 15 MG TABLET PO SCH (18:22)
[2016-11-12] MEDS: Sucralfate 1 GM TABLET PO SCH (20:46)
[2016-11-12] MEDS: Gabapentin 100 MG CAPSULE PO SCH (20:46)
[2016-11-12] MEDS: Furosemide 20 MG/2 ML VIAL IVP SCH (20:46)
[2016-11-12] MEDS: Insulin DETEMIR 100 UNIT/ML X5UNITS SQ SCH (20:53)
[2016-11-12] MEDS ORDERED: NON-FORMULARY MEDICATION 1 EACH EACH (Insulin Detemir [Levemir Flextouch] 5 UNIT) SQ SCH (21:00)
[2016-11-13] MEDS: *HR* OxyCODONE Immed Rel 5 MG TABLET PO PRN ×2 (01:13→21:01)
[2016-11-13 07:28] LABS: Basophils % 0.3 %; Eosinophils # 0.2 K/mcL (0.0-0.6); Eosinophils % 2.4 %; Hematocrit 30.5 % (35.3-44.9); Hemoglobin 9.3 g/dL (11.5-15.4); Immature Granulocytes % 0.9 % (0-4); Lymphocytes # 0.5 K/mcL (0.6-4.6); Lymphocytes % 5.9 %; Mean Corpuscular HGB Conc 30.5 g/dL (31.6-35.5); Mean Corpuscular Hemoglobin 24.5 pg (28.0-33.3); Mean Corpuscular Volume 80.5 fL (83.0-100.0); Mean Platelet Volume 9.2 fL (9.4-12.4); Monocytes # 0.8 K/mcL (0.0-1.3); Monocytes % 8.9 %; Neutrophils # 7.5 K/mcL (1.6-8.9); Platelet Count 273 K/mcL (140-400); Red Blood Count 3.79 M/mcL (3.82-4.97); Red Cell Distribution Width 16.3 % (11.5-14.5); Segmented Neutrophils % 81.6 %
[2016-11-13 07:40] LABS: Albumin 2.5 g/dL (3.5-5.0); Albumin/Globulin Ratio 0.6 (1.1-2.2); Bilirubin,Total 0.5 mg/dL (0.2-1.2); Calcium 9.6 mg/dL (8.6-10.8); Globulin 3.9 g/dL (2.4-3.5); Phosphorous 3.9 mg/dL (2.3-4.7); Potassium 4.3 mEq/L (3.5-4.5); Total Protein 6.4 g/dL (6.0-8.3)
--- NOTE | 2016-11-13 07:55 | Nephrology Consult Note ---
Date of Encounter: 11/13/16 Time of Encounter: 07:53 Assessment and Plan (1) CKD (chronic kidney disease), stage III Current Visit: No Status: Acute The patient has underlying stage III chronic kidney disease in the setting of diabetes and hypertension. Current creatinine is 1.38 which is at the patient' s baseline. She presents with acute on chronic diastolic congestive heart failure as well as a urinary tract infection. She is currently on IV Lasix. I agree with her current medical regimen. We will continue to monitor her and follow her renal function while she is here in the hospital. (2) Type 2 diabetes mellitus with diabetic chronic kidney disease Current Visit: Yes Status: Acute Qualifiers: Diabetes mellitus termite renewal inspector insulin use: without termite renewal inspector use Chronic kidney disease stage: stage 3 (moderate) Qualified Code(s): E11.22 - Type 2 diabetes mellitus with diabetic chronic kidney disease; N18.3 - Chronic kidney disease, stage 3 (moderate) (3) Benign hypertension with chronic kidney disease, stage III Current Visit: Yes Status: Acute (4) Acute on chronic diastolic CHF (congestive heart failure) Current Visit: Yes Status: Acute History of Present Illness - History of Present Illness This is a 71-year-old female who is followed as an outpatient for stage III chronic kidney disease in the setting of hypertension diabetes. Patient was admitted to the hospital after a several day history of worsening shortness of breath lower extremity swelling and orthopnea. Patient was previously admitted in September with diastolic congestive heart failure. She subsequently was sent to rehabilitation for several weeks. She returned home several days ago and developed progressive weakness and shortness of breath and edema. Currently she says she is feeling better since coming into the hospital yesterday. She is currently on Lasix 20 mg IV twice a day. Patient was also noted to have a urinalysis consistent with a urinary tract infection. She currently is on meropenem. Some dysuria yesterday but is not experiencing any so far today. She denies any chest pain. The patient does report that she has experienced which she thinks is hemoptysis. She did undergo a thoracentesis back in September on the left side. At that time she had about 800 mL of bloody fluid removed. She was offered a bronchoscopy but according to the medical record she declined at that time. Past Med Surg Social Fam HX - Past Medical History Medical history: arthritis, atrial fibrillation, cirrhosis, CHF, COPD, diabetes , GERD, hyperlipidemia, hypertension, renal disease, other Psychiatric history: anxiety, panic disorder - Past Surgical History Surgical History: cholecystectomy, hysterectomy - Social History Smoking Status: Former smoker Smokeless Tobacco Status: No Alcohol use: none Drug use: none - Family History Mother Living Status: Hx Family Cardiac Disorders: Yes (atrial fibrillation) Hx Family GI Disorders: Yes (Polyps) Hx Family Endocrine Disorder: Yes (DM) Father Living Status: Hx Family Cardiac Disorders: Yes (HTN) Hx Family Cancer: Yes (Leukemia) Sister Living Status: Still Living Hx Family Cancer: Yes (Breast Cancer, age 40's) Hx Family Endocrine Disorder: Yes (diabetes mellitus) Brother Living Status: Still Living Hx Family Cardiac Disorders: No Hx Family Respiratory Disorders: No Hx Family Cancer: No Hx Family GI Disorders: No Hx Family Endocrine Disorder: Yes Hx Family Neuromuscular Disorders: No Hx Family Neurologic Disorders: No Hx Family HEENT Disorders: No Hx Family Autoimmune Disorders: No Medications and Allergies Folic Acid 1 mg PO DAILY 08/14/15 [History] GlipiZIDE [Glucotrol] 10 mg PO BID 08/14/15 [History] Metoprolol [Lopressor] 12.5 mg PO BID 08/14/15 [History] Sertraline [Zoloft] 150 mg PO DAILY 08/14/15 [History] Sucralfate [Carafate] 2 gm PO BID 08/14/15 [History] Baclofen 5 - 10 mg PO AD 03/19/16 [History] Rivaroxaban [Xarelto] 15 mg PO QPM 03/19/16 [History] Lactulose 10 gm PO QID 06/24/16 [History] Aspirin 81 mg PO DAILY 07/11/16 [History] Fluticasone/Vilanterol [Breo Ellipta 100-25 Mcg INH] 1 each IH DAILY 07/11/16 [ History] Ipratropium/Albuterol Neb [Duoneb] 3 ml IH Q6H PRN 07/11/16 [History] Pantoprazole Sodium [Protonix] 40 mg PO DAILY 07/11/16 [History] Oxycodone HCl 10 mg PO Q6H PRN #25 tablet 07/23/16 [Rx] Calcium Carbonate [Tums] 1,000 mg PO BID PRN 09/20/16 [History] Diltiazem [Cardizem] 30 mg PO TID 09/20/16 [History] Gabapentin [Neurontin] 100 mg PO BID 09/20/16 [History] Insulin DETEMIR [Levemir Flextouch] 5 unit SQ HS 09/20/16 [History] Lidocaine Patch [Lidoderm 5% patch] 1 each TP DAILY 09/20/16 [History] Nystatin POWDER [Nystop] 1 appl TP DAILY PRN 09/20/16 [History] Sennosides [Senna] 17.2 mg PO DAILY 09/20/16 [History] Simethicone [Gas-X] 120 mg PO BID PRN 09/20/16 [History] Torsemide [Demadex] 10 mg PO BID 09/20/16 [History] Allergies ceftriaxone [From Rocephin] Allergy (Severe, Verified 08/14/16 17:10) Anaphylaxis Occured at [facility]. Required ICU transfer, intubation, and mechanical ventilation. ciprofloxacin [From Cipro] Allergy (Mild, Verified 08/14/16 17:10) Rash sulfamethoxazole [From Bactrim] Allergy (Verified 08/14/16 17:10) See Comments trimethoprim [From Bactrim] Allergy (Verified 08/14/16 17:10) See Comments rozeta Allergy (Uncoded 06/24/16 15:20) See Comments Review of Systems Constitutional: as per HPI, weakness Eyes: bilateral: blurred vision (patient denies), diplopia (patient denies) Nose, mouth and throat: no dizziness, no headache(s) Cardiovascular: dyspnea, dyspnea on exertion, edema, orthopnea Respiratory: dyspnea, hemoptysis Gastrointestinal: no abdominal pain, no change in bowel habits Genitourinary Female: dysuria Musculoskeletal: no muscle weakness, no numbness Integumentary: no hirsutism, no striae Neurological: as per HPI, weakness Psychiatric: no depression, no difficulty concentrating Endocrine: as per HPI Exam - Vital Signs Vital signs: Initial Vital Signs Temp Pulse Resp BP Pulse Ox 97.7 F 84 18 148/87 85 11/12/16 07:43 11/12/16 07:43 11/12/16 07:43 11/12/16 07:43 11/12/16 07:43 Vital Signs - Last 8 Hours Temp Pulse Resp BP Pulse Ox 11/13/16 07:50 97.7 F 70 22 165/84 94 11/13/16 05:07 97.5 F L 81 22 165/81 83 Intake and Output 11/12/16 11/12/16 11/13/16 15:59 23:59 07:59 Intake Total 0 / 0 Output Total 0 / 0 200 / 200 Balance 0 / 0 -200 / -200 Intake: Oral 0 / 0 Output: Urine 0 / 0 200 / 200 Other: Weight 96.116 kg Blood Glucose* 228 175 174 Patient Weight 11/13/16 23:59 Weight 96.116 kg - General Appearance Exam: Patient is alert and oriented. She is in no acute distress. She is sitting on the edge of the bed. Neck is supple. Carotids no bruits. Lungs demonstrate bilateral basilar rales. No wheezing or rhonchi. Heart regular rate and rhythm with a 2/6 ejection murmur. Abdomen shows normal bowel sounds bruits masses organomegaly or tenderness. Lower extremity show 1-2+ lower extremity swelling. Results - Lab Results 11/13/16 07:07 11/13/16 07:07 Most recent lab results Calcium 9.6 mg/dL (8.6-10.8) 11/13/16 07:07 Phosphorus 3.9 mg/dL (2.3-4.7) 11/13/16 07:07 Consult Discharge Plan - Plan Referrals: Henrry Mccullough MD [Primary Care Provider] -
[2016-11-13] MEDS: Sucralfate 1 GM TABLET PO SCH ×2 (08:09→15:43)
[2016-11-13] MEDS: Gabapentin 100 MG CAPSULE PO SCH ×2 (08:09→21:01)
[2016-11-13] MEDS: Aspirin 81 MG TAB.CHEW PO SCH (08:09)
[2016-11-13] MEDS: Folic Acid 1 MG TABLET PO SCH (08:10)
[2016-11-13] MEDS: Furosemide 20 MG/2 ML VIAL IVP SCH ×2 (08:10→21:05)
[2016-11-13] MEDS: Lactulose Oral Soln 20 GM/30 ML UDC PO SCH ×4 (08:10→21:02)
[2016-11-13] MEDS: Insulin LISPRO 300 UNITS/3 ML VIAL SQ SCH ×4 (08:11→21:05)
[2016-11-13] MEDS ORDERED: (Fluticasone/Vilanterol [Breo Ellipta 100-25 Mcg Inh]) IH SCH (09:00)
[2016-11-13] MEDS ORDERED: Albuterol 2.5 MG/3 ML NEBULIZER IH PRN (14:20)
[2016-11-13] MEDS: Ipratropium/Albuterol Neb 3 ML IH SCH ×2 (15:33→22:28)
[2016-11-13] MEDS: Ondansetron ODT 4 MG TAB.RAPDIS SL PRN ×2 (15:43→21:20)
[2016-11-13] MEDS: *HR* Rivaroxaban 15 MG TABLET PO SCH (17:01)
--- NOTE | 2016-11-13 17:17 | Electrocardiograph Report ---
[address] [address] Test Date: 2016-11-12 Pat Name: Jaimee Rodriguez Department: 104 Room: 2A44 Gender: F Communications Media Professor: : 1945 Requested By: Harvey Kang Order Number: [id number] Reading MD: Sangeetha Helton Measurements Intervals [place] Rate: 78 P: MS: 0 QRS: -6 QRSD: 84 T: 5 QT: 370 QTc: 404 Interpretive Statements ATRIAL FIBRILLATION MINIMAL ST DEPRESSION ABNORMAL RHYTHM ECG INTERPRETATION BASED ON A DEFAULT AGE OF 40 YEARS Electronically Signed On 11-13-2016 17:15:31 EDT by Sangeetha Helton
[2016-11-13] MEDS: Insulin DETEMIR 100 UNIT/ML X5UNITS SQ SCH (21:04)
[2016-11-14] MEDS: Ipratropium/Albuterol Neb 3 ML IH SCH ×4 (05:19→21:18)
[2016-11-14 06:05] LABS: Calcium 9.3 mg/dL (8.6-10.8); Potassium 4.1 mEq/L (3.5-4.5)
[2016-11-14] MEDS: *HR* OxyCODONE Immed Rel 5 MG TABLET PO PRN ×2 (06:56→16:23)
--- NOTE | 2016-11-14 08:07 | Nephrology Progress Note ---
Date of Encounter: 11/14/16 Time of Encounter: 08:05 - Assessment and Plan (1) CKD (chronic kidney disease), stage III Current Visit: No Status: Acute Patient is stable from the standpoint of her chronic kidney disease. Creatinine is 1.46 today. Potassium is 4.1. I would recommend continuing with the current medical regimen. (2) Type 2 diabetes mellitus with diabetic chronic kidney disease Current Visit: Yes Status: Acute Qualifiers: Diabetes mellitus buttermaker insulin use: without buttermaker use Chronic kidney disease stage: stage 3 (moderate) Qualified Code(s): E11.22 - Type 2 diabetes mellitus with diabetic chronic kidney disease; N18.3 - Chronic kidney disease, stage 3 (moderate) (3) Benign hypertension with chronic kidney disease, stage III Current Visit: Yes Status: Acute (4) Acute on chronic diastolic CHF (congestive heart failure) Current Visit: Yes Status: Acute Subjective Interval history: Patient reports she is feeling better. She is no longer experiencing shortness of breath. Patient's intake and output do not seem to be adequately recorded. Nursing records indicate 30 mL in and only 200 mL out. Objective - Vital Signs Vital signs: Vital Signs Temp Pulse Resp BP Pulse Ox 11/14/16 07:13 98.2 F 77 18 120/55 95 11/14/16 05:20 20 97 11/14/16 04:00 97.6 F 71 18 134/59 96 11/14/16 00:39 98.3 F 70 16 122/59 97 11/13/16 22:30 20 92 11/13/16 21:00 98.4 F 71 17 117/71 95 11/13/16 17:06 97.7 F 20 18 148/80 96 11/13/16 15:36 18 96 11/13/16 12:07 98.3 F 67 18 124/68 97 11/13/16 08:24 94 Intake and Output 11/13/16 11/14/16 11/14/16 23:59 07:59 15:59 Other: Weight 96.4 kg Blood Glucose* 224 167 Patient Weight 11/14/16 23:59 Weight 96.4 kg - General Appearance Exam: Patient is alert and oriented. She is in no acute distress. She is lying supine in bed without difficulty. Lungs still demonstrate some bibasilar rales. Heart regular rate and rhythm. Abdomen was benign. Lower extremity swelling seems to be improving. - Lab 11/13/16 07:07 11/14/16 05:31 Most recent lab results Calcium 9.3 mg/dL (8.6-10.8) 11/14/16 05:31 Phosphorus 3.9 mg/dL (2.3-4.7) 11/13/16 07:07 Consult Discharge Plan - Plan Referrals: Henrry Mccullough MD [Primary Care Provider] - (Patient is from [facility])
[2016-11-14] MEDS: Folic Acid 1 MG TABLET PO SCH (08:29)
[2016-11-14] MEDS: Sucralfate 1 GM TABLET PO SCH ×2 (08:30→16:23)
[2016-11-14] MEDS: Gabapentin 100 MG CAPSULE PO SCH ×2 (08:30→21:31)
[2016-11-14] MEDS: Lactulose Oral Soln 20 GM/30 ML UDC PO SCH ×4 (08:30→21:33)
[2016-11-14] MEDS: Furosemide 20 MG/2 ML VIAL IVP SCH ×2 (08:30→21:30)
[2016-11-14] MEDS: Aspirin 81 MG TAB.CHEW PO SCH (08:31)
[2016-11-14] MEDS: Insulin LISPRO 300 UNITS/3 ML VIAL SQ SCH ×4 (08:31→21:35)
--- NOTE | 2016-11-14 17:57 | Internal Med Progress Note ---
Date of Encounter: 11/13/16 Time of Encounter: 14:30 - Assessment and plan (1) Acute CHF Current Visit: Yes Status: Acute Assessment and plan: Improving slowly. Continue IV Lasix, strict intake/output monitoring, fluid restriction and daily weights. Echocardiogram from July 2016 shows preserved EF with severe pulmonary hypertension. Continue beta lesvia and calcium channel lesvia. Telemetry monitoring. Qualifiers: Congestive heart failure type: diastolic Qualified Code(s): I50.31 - Acute diastolic (congestive) heart failure (2) CKD (chronic kidney disease), stage III Current Visit: Yes Status: Chronic Assessment and plan: Serum creatinine noted to be at baseline. Nephrology consult appreciated. (3) Chronic anemia Current Visit: Yes Status: Chronic (4) Obesity (BMI 30-39.9) Current Visit: Yes Status: Chronic (5) DM (diabetes mellitus), type 2 Current Visit: Yes Status: Chronic Assessment and plan: Continue Accu-Chek blood glucose monitoring with sliding scale insulin. Diabetic diet. 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 mellitus mcc insulin use: with mcc use Chronic kidney disease stage: stage 3 (moderate) Qualified Code(s): E11.22 - Type 2 diabetes mellitus with diabetic chronic kidney disease; N18.3 - Chronic kidney disease, stage 3 ( moderate); Z79.4 - brush hand (current) use of insulin (6) Cirrhosis Current Visit: Yes Status: Chronic Qualifiers: Hepatic cirrhosis type: unspecified hepatic cirrhosis Ascites presence: without ascites Qualified Code(s): K74.60 - Unspecified cirrhosis of liver (7) Atrial fibrillation Current Visit: Yes Status: Chronic Assessment and plan: Currently rate controlled. Continue Cardizem, metoprolol, long-term anticoagulation with Xarelto. Qualifiers: Atrial fibrillation type: chronic Qualified Code(s): I48.2 - Chronic atrial fibrillation (8) COPD (chronic obstructive pulmonary disease) Current Visit: Yes Status: Chronic Assessment and plan: Not noted to be in acute exacerbation. Continue bronchodilators and supplemental oxygen as needed. Continues to require high flow oxygen due to acute CHF. Qualifiers: COPD type: unspecified COPD Qualified Code(s): J44.9 - Chronic obstructive pulmonary disease, unspecified (9) LITO on CPAP Current Visit: Yes Status: Chronic - Subjective Interval history: Reports feeling tired. Has some shortness of breath and cough. No chest pain or palpitations. Able to tolerate oral diet. - Constitutional Vitals: Temp Pulse Resp BP Pulse Ox 98.7 F 90 16 136/79 94 11/14/16 16:35 11/14/16 16:35 11/14/16 16:35 11/14/16 16:35 11/14/16 16:06 General appearance: Present: A&O X 3, answers questions appropriately - Respiratory Respiratory exam: Present: rales (Bilateral coarse crackles at bases). Absent: accessory muscle use, rhonchi, wheezes - Cardiovascular Cardiovascular exam: Present: irregular rhythm, +S1, +S2. Absent: diastolic murmur, gallop, rubs, systolic murmur - GI/Abdominal GI/Abdominal exam: Present: normal bowel sounds, soft (Obese), no peritoneal signs. Absent: distended, tenderness - Extremities Exam Extremities exam: Present: pedal edema (1+ pedal edema bilaterally), warm, radial pulses palpable and symetrical. Absent: calf tenderness, cyanotic Internal Medicine: Result - Labs CBC & Chem 7: 11/13/16 07:07 11/14/16 05:31 Labs: BMP 11/14/16 05:31 Sodium 140 Potassium 4.1 Chloride 96 L Carbon Dioxide 36 H BUN 23 H Creatinine 1.46 H Glucose 140 H Calcium 9.3 Consult Discharge Plan - Plan Referrals: Henrry Mccullough MD [Primary Care Provider] - (Patient is from [facility])
[2016-11-14] MEDS: APIXABAN 5 MG TABLET PO SCH (21:30)
[2016-11-14] MEDS: Ondansetron ODT 4 MG TAB.RAPDIS SL PRN (21:30)
[2016-11-14] MEDS: Insulin DETEMIR 100 UNIT/ML X5UNITS SQ SCH (21:31)
[2016-11-15] MEDS: *HR* OxyCODONE Immed Rel 5 MG TABLET PO PRN ×4 (01:31→22:52)
[2016-11-15] MEDS: Ipratropium/Albuterol Neb 3 ML IH SCH ×4 (03:10→22:24)
[2016-11-15] MEDS: Sucralfate 1 GM TABLET PO SCH ×2 (06:46→16:49)
--- NOTE | 2016-11-15 08:01 | Nephrology Progress Note ---
Date of Encounter: 11/15/16 Time of Encounter: 07:59 - Assessment and Plan (1) CKD (chronic kidney disease), stage III Current Visit: Yes Status: Chronic The patient has been stable from the standpoint of her chronic kidney disease. However today's lab is pending. Her urine output is recorded as very low although I am not sure that is accurate. Swelling appears to be about the same. It may be worthwhile to increase her Lasix for a day or 2. I will go ahead and increase her to 40 mg twice daily and continue to monitor her renal function. 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 She says she was able to stand yesterday. Today's lab is pending. Urine output is only recorded as 120 mL. I am not sure that that is accurate. Physical exam her swelling appears to be about the same as yesterday. Objective - Vital Signs Vital signs: Vital Signs Temp Pulse Resp BP Pulse Ox 11/15/16 07:33 99.4 F 90 16 125/78 94 11/15/16 04:00 98.7 F 71 16 144/74 95 11/15/16 03:10 18 94 11/15/16 00:17 98.5 F 67 18 116/57 94 11/14/16 21:18 18 93 11/14/16 20:00 98.6 F 74 17 124/60 93 11/14/16 16:35 98.7 F 90 16 136/79 11/14/16 16:06 16 94 11/14/16 12:37 98.1 F 79 16 102/63 94 11/14/16 10:42 16 94 Intake and Output 11/14/16 11/14/16 11/15/16 15:59 23:59 07:59 Intake Total 720 / 720 0 / 0 Output Total 120 / 120 0 / 0 Balance 600 / 600 0 / 0 Intake: Oral 720 / 720 0 / 0 Output: Urine 120 / 120 0 / 0 Other: Weight 96.5 kg Blood Glucose* 231 241 195 Patient Weight 11/15/16 23:59 Weight 96.5 kg - General Appearance Exam: Patient is alert and oriented. She is in no acute distress. Vital signs are stable. Lungs demonstrate bibasilar rales. Heart regular rate and rhythm. Abdomen is benign. Lower extremity swelling is about the same as yesterday. - Lab 11/13/16 07:07 11/14/16 05:31 Most recent lab results Calcium 9.3 mg/dL (8.6-10.8) 11/14/16 05:31 Phosphorus 3.9 mg/dL (2.3-4.7) 11/13/16 07:07 Consult Discharge Plan - Plan Referrals: Henrry Mccullough MD [Primary Care Provider] - (Web requested 11/14/16)
[2016-11-15] MEDS: Gabapentin 100 MG CAPSULE PO SCH ×2 (08:03→22:52)
[2016-11-15] MEDS: APIXABAN 5 MG TABLET PO SCH ×2 (08:03→22:52)
[2016-11-15] MEDS: Folic Acid 1 MG TABLET PO SCH (08:04)
[2016-11-15] MEDS: Aspirin 81 MG TAB.CHEW PO SCH (08:04)
[2016-11-15] MEDS: Lactulose Oral Soln 20 GM/30 ML UDC PO SCH ×4 (08:05→22:53)
[2016-11-15] MEDS: Insulin LISPRO 300 UNITS/3 ML VIAL SQ SCH ×4 (08:11→23:05)
[2016-11-15] MEDS: Furosemide 20 MG/2 ML VIAL IVP SCH ×3 (08:12→16:50)
[2016-11-15] MEDS: Ondansetron ODT 4 MG TAB.RAPDIS SL PRN (22:50)
[2016-11-15] MEDS: Insulin DETEMIR 100 UNIT/ML X5UNITS SQ SCH (22:51)
[2016-11-16] MEDS: Ipratropium/Albuterol Neb 3 ML IH SCH ×4 (04:49→23:36)
[2016-11-16 05:48] LABS: Albumin 2.6 g/dL (3.5-5.0); Albumin/Globulin Ratio 0.6 (1.1-2.2); Bilirubin,Total 0.6 mg/dL (0.2-1.2); Calcium 9.2 mg/dL (8.6-10.8); Globulin 4.2 g/dL (2.4-3.5); Potassium 4.9 mEq/L (3.5-4.5); Total Protein 6.8 g/dL (6.0-8.3)
[2016-11-16] MEDS: Lactulose Oral Soln 20 GM/30 ML UDC PO SCH ×4 (07:53→21:24)
[2016-11-16] MEDS: Furosemide 20 MG/2 ML VIAL IVP SCH (07:54)
[2016-11-16] MEDS: Gabapentin 100 MG CAPSULE PO SCH ×2 (07:54→21:24)
[2016-11-16] MEDS: Sucralfate 1 GM TABLET PO SCH ×2 (07:54→17:31)
[2016-11-16] MEDS: Aspirin 81 MG TAB.CHEW PO SCH (07:54)
[2016-11-16] MEDS: APIXABAN 5 MG TABLET PO SCH ×2 (07:55→21:24)
[2016-11-16] MEDS: Insulin LISPRO 300 UNITS/3 ML VIAL SQ SCH ×4 (07:55→21:12)
[2016-11-16] MEDS: Folic Acid 1 MG TABLET PO SCH (07:55)
--- NOTE | 2016-11-16 09:03 | Nephrology Progress Note ---
Date of Encounter: 11/16/16 Time of Encounter: 08:55 - Assessment and Plan (1) Acute worsening of stage 4 chronic kidney disease Current Visit: No Status: Acute MELECIO/CKD, acute on chronic diastolic CHF. Baseline creat 1.4. Renal fct worsening following Lasix. Documented urine output 350 cc. Will hold Lasix today. Continue to monitor labs. Subjective Interval history: Sitting on edge of bed, eating breakfast. States breathing easier. Objective - Vital Signs Vital signs: Vital Signs Temp Pulse Resp BP Pulse Ox 11/16/16 07:31 98.9 F 94 18 146/80 90 11/16/16 04:49 18 94 11/16/16 04:00 97.9 F 88 18 126/72 90 11/15/16 23:40 98.7 F 91 17 146/69 86 11/15/16 22:25 20 90 11/15/16 20:00 98.6 F 96 17 123/63 91 Intake and Output 11/15/16 11/16/16 11/16/16 23:59 07:59 15:59 Intake Total 120 / 120 Output Total 175 / 175 Balance -55 / -55 Intake: Oral 120 / 120 15 / 15 Other Output: Urine 175 / 175 Urethral (Sandhu) 175 / 175 Other: Meal Dinner Percent of Meal Consumed 30% Weight 96.3 kg Blood Glucose* 200 214 Patient Weight 11/16/16 23:59 Weight 96.3 kg - General Appearance General appearance: Present: well-developed, well-nourished, appears started age , obese EENT: Present: mucous membranes moist Neck: Present: no JVD Additional Comments: fine bibasilar crackles Cardiology: Present: edema, regular rate, regular rhythm Additional Comments: 1+ pitting knees down Gastrointestinal: Present: normoactive bowel sounds, no tenderness Integumentary: Present: warm and dry Neurologic: Present: alert and oriented x3 Psychiatric: Present: mood/affect appropriate, cooperative - Lab 11/13/16 07:07 11/16/16 05:05 Most recent lab results Calcium 9.2 mg/dL (8.6-10.8) 11/16/16 05:05 Phosphorus 3.9 mg/dL (2.3-4.7) 11/13/16 07:07 Consult Discharge Plan - Plan Referrals: Henrry Mccullough MD [Primary Care Provider] - (Web requested 11/14/16)
--- NOTE | 2016-11-16 11:52 | Physician Discharge Referral ---
ExtendedCare Referral Info Transfer To: [facility] Provider in Charge: Tiffany Jeffries Provider in Charge after Transfer: PCP Institutional Level of Care: Skilled - Diagnosis (1) Acute CHF Priority: Primary Status: Acute (2) CKD (chronic kidney disease), stage III Priority: Secondary Status: Chronic (3) Chronic anemia Priority: Secondary Status: Chronic (4) Obesity (BMI 30-39.9) Priority: Secondary Status: Chronic (5) DM (diabetes mellitus), type 2 Priority: Secondary Status: Chronic (6) Cirrhosis Priority: Secondary Status: Chronic (7) Atrial fibrillation Priority: Secondary Status: Chronic (8) COPD (chronic obstructive pulmonary disease) Priority: Secondary Status: Chronic (9) LITO on CPAP Priority: Secondary Status: Chronic Expected Duration of Placement: 3 weeks Prognosis: Fair Aware of Diagnosis: Patient Aware of Prognosis: Patient - Transfer Medications Home Medications: GlipiZIDE [Glucotrol] 10 mg PO BID 08/14/15 [History] Metoprolol [Lopressor] 12.5 mg PO BID 08/14/15 [History] Sertraline [Zoloft] 150 mg PO DAILY 08/14/15 [History] Sucralfate [Carafate] 2 gm PO BID 08/14/15 [History] Lactulose 10 gm PO QID 06/24/16 [History] Aspirin 81 mg PO DAILY 07/11/16 [History] Fluticasone/Vilanterol [Breo Ellipta 100-25 Mcg INH] 1 each IH DAILY 07/11/16 [ History] Pantoprazole Sodium [Protonix] 40 mg PO DAILY 07/11/16 [History] Oxycodone HCl 10 mg PO Q6H PRN #25 tablet 07/23/16 [Rx] Diltiazem [Cardizem] 30 mg PO TID 09/20/16 [History] Gabapentin [Neurontin] 100 mg PO BID 09/20/16 [History] Insulin DETEMIR [Levemir Flextouch] 5 unit SQ HS 09/20/16 [History] Sennosides [Senna] 17.2 mg PO DAILY 09/20/16 [History] Simethicone [Gas-X] 120 mg PO BID PRN 09/20/16 [History] Torsemide [Demadex] 10 mg PO BID 09/20/16 [History] Apixaban [Eliquis] 2.5 mg PO BID 11/13/16 [History] Insulin ASPART [Novolog Flexpen] 0 - 12 units SQ TID PRN 11/13/16 [History] Spironolactone [Aldactone] 25 mg PO DAILY 11/13/16 [History] Allergies/Adverse Reactions: Allergies ceftriaxone [From Rocephin] Allergy (Severe, Verified 08/14/16 17:10) Anaphylaxis Occured at [facility]. Required ICU transfer, intubation, and mechanical ventilation. ciprofloxacin [From Cipro] Allergy (Mild, Verified 08/14/16 17:10) Rash sulfamethoxazole [From Bactrim] Allergy (Verified 08/14/16 17:10) See Comments trimethoprim [From Bactrim] Allergy (Verified 08/14/16 17:10) See Comments rozeta Allergy (Uncoded 06/24/16 15:20) See Comments - Respiratory Orders Smoking Cessation: Smoking cessation has been advised. For more information, call the [place] Tobacco Quit Line at 5-475-OFVA-NOW. CERTIFICATION: I certify that the transfer of the above named patient to an Extended Care Facility is necessary for the continuing treatment of the diagnosis listed. The above information is true and accurate reflection of patient's current condition. Confidential - Redisclosure prohibited without a patient's written consent.
[2016-11-16] MEDS: *HR* OxyCODONE Immed Rel 5 MG TABLET PO PRN (17:31)
--- NOTE | 2016-11-16 17:43 | Internal Med Progress Note ---
Date of Encounter: 11/14/16 Time of Encounter: 13:00 - Assessment and plan (1) Acute CHF Current Visit: Yes Status: Acute Assessment and plan: Improving slowly. Continue IV Lasix, strict intake/output monitoring, fluid restriction and daily weights. Echocardiogram from July 2016 shows preserved EF with severe pulmonary hypertension. Continue beta lesvia and calcium channel lesvia. Telemetry monitoring. Continues to require high flow oxygen. Qualifiers: Congestive heart failure type: diastolic Qualified Code(s): I50.31 - Acute diastolic (congestive) heart failure (2) CKD (chronic kidney disease), stage III Current Visit: Yes Status: Chronic Assessment and plan: Serum creatinine noted to be around baseline. Nephrology follow-up appreciated. (3) Chronic anemia Current Visit: Yes Status: Chronic (4) Obesity (BMI 30-39.9) Current Visit: Yes Status: Chronic (5) DM (diabetes mellitus), type 2 Current Visit: Yes Status: Chronic Assessment and plan: Continue Accu-Chek blood glucose monitoring with sliding scale insulin. Diabetic diet. 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 controller insulin use: with joint terminal attack controller use Chronic kidney disease stage: stage 3 (moderate) Qualified Code(s): E11.22 - Type 2 diabetes mellitus with diabetic chronic kidney disease; N18.3 - Chronic kidney disease, stage 3 ( moderate); Z79.4 - correction (current) use of insulin (6) Cirrhosis Current Visit: Yes Status: Chronic Qualifiers: Hepatic cirrhosis type: unspecified hepatic cirrhosis Ascites presence: without ascites Qualified Code(s): K74.60 - Unspecified cirrhosis of liver (7) Atrial fibrillation Current Visit: Yes Status: Chronic Assessment and plan: Currently rate controlled. Continue Cardizem, metoprolol, long-term anticoagulation will be changed to Eliquis, according to recent [facility] discharge instructions. Patient has only been at home for 2-3 days after being discharged from [facility], before being admitted to our hospital. Qualifiers: Atrial fibrillation type: chronic Qualified Code(s): I48.2 - Chronic atrial fibrillation (8) COPD (chronic obstructive pulmonary disease) Current Visit: Yes Status: Chronic Assessment and plan: Not noted to be in acute exacerbation. Continue bronchodilators and supplemental oxygen as needed. Continues to require high flow oxygen due to acute CHF. Qualifiers: COPD type: unspecified COPD Qualified Code(s): J44.9 - Chronic obstructive pulmonary disease, unspecified (9) LITO on CPAP Current Visit: Yes Status: Chronic - Subjective Interval history: Reports improvement from yesterday. Noted to be sitting up at the age of bed. Improving shortness of breath. No chest pain, cough, palpitations. - Constitutional Vitals: Temp Pulse Resp BP Pulse Ox 98.8 F 82 18 134/74 93 11/16/16 15:46 11/16/16 15:46 11/16/16 16:05 11/16/16 15:46 11/16/16 16:05 General appearance: Present: A&O X 3, answers questions appropriately - Respiratory Respiratory exam: Present: rales (Coarse breath sounds bilaterally along with faint rales). Absent: accessory muscle use, rhonchi, wheezes - Cardiovascular Cardiovascular exam: Present: RRR, +S1, +S2. Absent: diastolic murmur, gallop, rubs, systolic murmur - GI/Abdominal GI/Abdominal exam: Present: normal bowel sounds, soft, no peritoneal signs. Absent: distended, tenderness - Extremities Exam Extremities exam: Present: full ROM, pedal edema, warm, radial pulses palpable and symetrical. Absent: calf tenderness, cyanotic Internal Medicine: Result - Labs CBC & Chem 7: 11/13/16 07:07 11/16/16 05:05 Labs: BMP 11/16/16 05:05 Sodium 133 L Potassium 4.9 H Chloride 90 L Carbon Dioxide 31 H BUN 32 H Creatinine 2.43 H D Glucose 198 H Calcium 9.2 Liver Function 11/16/16 Range/Units 05:05 Total Bilirubin 0.6 (0.2-1.2) mg/dL AST 18 (5-34) Units/L ALT 13 (0-55) Units/L Alkaline Phosphatase 96 (38-126) Units/L Albumin 2.6 L (3.5-5.0) g/dL Consult Discharge Plan - Plan Referrals: Henrry Mccullough MD [Primary Care Provider] - (Web requested 11/14/16)
[2016-11-16] MEDS: Insulin DETEMIR 100 UNIT/ML X5UNITS SQ SCH (21:25)
[2016-11-17] MEDS: Ipratropium/Albuterol Neb 3 ML IH SCH ×4 (04:56→22:37)
[2016-11-17] MEDS: Sucralfate 1 GM TABLET PO SCH ×2 (06:52→16:25)
[2016-11-17 07:00] LABS: Calcium 9.4 mg/dL (8.6-10.8); Potassium 5.1 mEq/L (3.5-4.5)
--- NOTE | 2016-11-17 08:17 | Nephrology Progress Note ---
Date of Encounter: 11/17/16 Time of Encounter: 08:00 - Assessment and Plan (1) Acute worsening of stage 4 chronic kidney disease Current Visit: No Status: Acute MELECIO/CKD, acute on chronic diastolic CHF. Baseline creat 1.4. Renal fct worsening following Lasix. Creat worsening 2.86. Documented urine output 500 cc. Would like to continue to hold Lasix today. However will get CXR and may have to restart Laxix 20mg BID if CXR worse. Continue to monitor labs. Subjective Interval history: Sitting on edge of bed. States SOB worse, but OC NC had been off. O2 Sat on high flow O2 now 98%. No respiratory distress noted. Objective - Vital Signs Vital signs: Vital Signs Temp Pulse Resp BP Pulse Ox 11/17/16 06:57 98.0 F 96 18 121/63 95 11/17/16 04:00 98.9 F 84 18 130/74 87 11/16/16 23:39 97.6 F 65 18 129/79 85 11/16/16 20:11 98.4 F 81 18 92/49 75 11/16/16 16:05 18 93 11/16/16 15:46 98.8 F 82 18 134/74 90 11/16/16 13:06 90 11/16/16 10:43 18 100 11/16/16 10:42 98.3 F 63 18 135/77 100 Intake and Output 11/16/16 11/17/16 11/17/16 23:59 07:59 15:59 Output Total 500 / 500 Balance -500 / -500 Output: Catheter 500 / 500 Other: Stool Size Moderate Stool Consistency loose Stool Color Brown Weight 96.8 kg Blood Glucose* 171 221 Patient Weight 11/17/16 23:59 Weight 96.8 kg - General Appearance General appearance: Present: well-developed, well-nourished, appears started age , obese EENT: Present: mucous membranes moist Neck: Present: no JVD Additional Comments: fine bibasilar crackles Cardiology: Present: edema, regular rhythm Additional Comments: mild pitting edema, knees down Gastrointestinal: Present: normoactive bowel sounds, no tenderness Integumentary: Present: warm and dry Neurologic: Present: alert and oriented x3 Psychiatric: Present: mood/affect appropriate, cooperative - Lab 11/13/16 07:07 11/17/16 05:59 Most recent lab results Calcium 9.4 mg/dL (8.6-10.8) 11/17/16 05:59 Phosphorus 3.9 mg/dL (2.3-4.7) 11/13/16 07:07 Consult Discharge Plan - Plan Referrals: Henryr Mccullough MD [Primary Care Provider] - (Web requested 11/14/16)
[2016-11-17] MEDS: Lactulose Oral Soln 20 GM/30 ML UDC PO SCH ×4 (08:52→22:25)
[2016-11-17] MEDS: Insulin LISPRO 300 UNITS/3 ML VIAL SQ SCH ×4 (08:54→22:26)
[2016-11-17] MEDS: APIXABAN 5 MG TABLET PO SCH ×2 (08:56→22:26)
[2016-11-17] MEDS: Aspirin 81 MG TAB.CHEW PO SCH (08:57)
[2016-11-17] MEDS: Folic Acid 1 MG TABLET PO SCH (08:57)
[2016-11-17] MEDS: Gabapentin 100 MG CAPSULE PO SCH ×2 (08:57→22:25)
[2016-11-17] MEDS ORDERED: Furosemide 20 MG/2 ML VIAL IVP ONE (17:26)
[2016-11-17] MEDS: Insulin DETEMIR 100 UNIT/ML X5UNITS SQ SCH (22:26)
[2016-11-18] MEDS: Ipratropium/Albuterol Neb 3 ML IH SCH ×4 (04:14→21:09)
[2016-11-18 07:48] LABS: Calcium 9.1 mg/dL (8.6-10.8); Potassium 4.7 mEq/L (3.5-4.5)
--- NOTE | 2016-11-18 08:28 | Nephrology Progress Note ---
Date of Encounter: 11/18/16 Time of Encounter: 07:55 - Assessment and Plan (1) Acute worsening of stage 4 chronic kidney disease Current Visit: No Status: Acute MELECIO/CKD, acute on chronic diastolic CHF. Baseline creat 1.4. Renal fct worsening following Lasix. Creat 2.88. Documented urine output 750 cc. CXR - pulm edema with bilateral pleural effeusion and assoc. bibasilar atalectasis, no appreciative change from prior CXR. History of thorocentesis in Sep 2016. Will obtain CT Chest w/o contrast. Possibly benefit from thorocentesis depending on size of effusions. Continue to monitor labs. Subjective Interval history: States SOB worse, O2 Sat on high flow 5L O2 now 94%. Somewhat tachypneic. Objective - Vital Signs Vital signs: Vital Signs Temp Pulse Resp BP Pulse Ox 11/18/16 07:13 98.5 F 78 18 121/64 98 11/18/16 04:39 98.8 F 76 19 108/59 93 11/17/16 23:46 98.7 F 80 18 128/65 95 11/17/16 22:40 18 95 11/17/16 20:54 98.7 F 78 18 128/68 91 11/17/16 16:37 24 95 11/17/16 15:45 98.4 F 72 17 124/66 97 11/17/16 12:06 98.4 F 78 18 130/70 95 11/17/16 11:48 14 95 11/17/16 09:00 92 Intake and Output 11/17/16 11/18/16 11/18/16 23:59 07:59 15:59 Intake Total 360 / 360 Output Total 200 / 200 Balance 360 / 360 -200 / -200 Intake: Oral 360 / 360 Output: Urine 200 / 200 Other: Meal Dinner Percent of Meal Consumed 0% Stool Size Small Stool Consistency liquid Stool Color Brown # Bowel Movements 1 Blood Glucose* 203 147 - General Appearance General appearance: Present: well-developed, well-nourished, appears started age , obese EENT: Present: mucous membranes moist Neck: Present: no JVD Additional Comments: fine bibasilar crackles Cardiology: Present: regular rate, regular rhythm Additional Comments: mild pitting edema , knees down Gastrointestinal: Present: normoactive bowel sounds, no tenderness, no guarding Integumentary: Present: warm and dry Neurologic: Present: alert and oriented x3 Psychiatric: Present: mood/affect appropriate, cooperative - Lab 11/13/16 07:07 11/18/16 07:21 Most recent lab results Calcium 9.1 mg/dL (8.6-10.8) 11/18/16 07:21 Phosphorus 3.9 mg/dL (2.3-4.7) 11/13/16 07:07 Consult Discharge Plan - Plan Referrals: Henrry Mccullough MD [Primary Care Provider] - (Web requested 11/14/16)
[2016-11-18] MEDS: Lactulose Oral Soln 20 GM/30 ML UDC PO SCH ×4 (09:28→20:32)
[2016-11-18] MEDS: *HR* OxyCODONE Immed Rel 5 MG TABLET PO PRN ×2 (09:28→20:33)
[2016-11-18] MEDS: APIXABAN 5 MG TABLET PO SCH ×2 (09:28→20:33)
[2016-11-18] MEDS: Aspirin 81 MG TAB.CHEW PO SCH (09:30)
[2016-11-18] MEDS: Sucralfate 1 GM TABLET PO SCH ×2 (09:30→16:20)
[2016-11-18] MEDS: Gabapentin 100 MG CAPSULE PO SCH ×2 (09:32→20:32)
[2016-11-18] MEDS: Insulin LISPRO 300 UNITS/3 ML VIAL SQ SCH ×4 (09:32→20:33)
[2016-11-18] MEDS: Folic Acid 1 MG TABLET PO SCH (09:32)
[2016-11-18 10:02] LABS: Albumin 2.5 g/dL (3.5-5.0); Albumin/Globulin Ratio 0.6 (1.1-2.2); Bilirubin,Total 0.7 mg/dL (0.2-1.2); Calcium 8.8 mg/dL (8.6-10.8); Globulin 3.9 g/dL (2.4-3.5); Total Protein 6.4 g/dL (6.0-8.3)
[2016-11-18 10:04] LABS: Potassium 5.4 mEq/L (3.5-4.5)
[2016-11-18] MEDS ORDERED: Bumetanide 1 MG/4 ML VIAL IVP SCH (14:40)
--- NOTE | 2016-11-18 14:58 | Internal Med Progress Note ---
Date of Encounter: 11/18/16 Time of Encounter: 14:56 - Assessment and plan (1) Acute CHF Current Visit: Yes Status: Acute Assessment and plan: unchanged clinical condition; CT chest shows B/L pulmonary edema and moderate pleural effusions; will consult IR in am for possible thoracentesis; not having adequate urine output; will change diuretics to IV Bumex and continue fluid restriction and output monitoring; continue supplemental O2, requires high flow O2; Qualifiers: Congestive heart failure type: diastolic Qualified Code(s): I50.31 - Acute diastolic (congestive) heart failure (2) CKD (chronic kidney disease), stage III Current Visit: Yes Status: Chronic Assessment and plan: worsening renal failure; serum creatinine stable around 2.8. 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 system operator insulin use: with terminal system operator use Chronic kidney disease stage: stage 3 (moderate) Qualified Code(s): E11.22 - Type 2 diabetes mellitus with diabetic chronic kidney disease; N18.3 - Chronic kidney disease, stage 3 ( moderate); Z79.4 - [facility] (current) use of insulin (6) Cirrhosis Current Visit: Yes Status: Chronic Qualifiers: Hepatic cirrhosis type: unspecified hepatic cirrhosis Ascites presence: without ascites Qualified Code(s): K74.60 - Unspecified cirrhosis of liver (7) Atrial fibrillation Current Visit: Yes Status: Chronic Qualifiers: Atrial fibrillation type: chronic Qualified Code(s): I48.2 - Chronic atrial fibrillation (8) COPD (chronic obstructive pulmonary disease) Current Visit: Yes Status: Chronic Qualifiers: COPD type: unspecified COPD Qualified Code(s): J44.9 - Chronic obstructive pulmonary disease, unspecified (9) LITO on CPAP Current Visit: Yes Status: Chronic - Subjective Interval history: Reports feeling about the same. Noted to be short of breath on speaking. Continues to have leg swelling and generalized weakness. Also has bilateral hand tremors. - Constitutional Vitals: Temp Pulse Resp BP Pulse Ox 98.5 F 78 18 121/64 93 11/18/16 07:13 11/18/16 07:13 11/18/16 10:49 11/18/16 07:13 11/18/16 10:49 General appearance: Present: A&O X 3, answers questions appropriately - Respiratory Respiratory exam: Present: rales (Faint rales at bilateral bases). Absent: accessory muscle use, rhonchi, wheezes - Cardiovascular Cardiovascular exam: Present: RRR, +S1, +S2. Absent: diastolic murmur, gallop, rubs, systolic murmur - Extremities Exam Extremities exam: Present: full ROM, pedal edema, warm, radial pulses palpable and symetrical. Absent: calf tenderness, cyanotic Internal Medicine: Result - Labs CBC & Chem 7: 11/22/16 05:11 11/22/16 05:11 Labs: BMP 11/18/16 11/18/16 07:21 09:16 Sodium 128 L 127 L Potassium 4.7 H 5.4 H Chloride 88 L 89 L Carbon Dioxide 27 25 BUN 48 H 43 H Creatinine 2.88 H 2.95 H Glucose 148 H 144 H Calcium 9.1 8.8 Liver Function 11/18/16 Range/Units 09:16 Total Bilirubin 0.7 (0.2-1.2) mg/dL AST 33 (5-34) Units/L ALT 18 (0-55) Units/L Alkaline Phosphatase 90 (38-126) Units/L Albumin 2.5 L (3.5-5.0) g/dL - Impressions Impressions Chest CT 11/18/16 08:23 IMPRESSION: Increased severity of extensive right greater than left pulmonary disease. A combination of pneumonia and pulmonary edema is suspected. Underlying malignancy cannot excluded and follow-up is needed. Moderate bilateral pleural effusions without significant change. Unchanged mediastinal adenopathy. Ascites, partially visualized. D/ / Aditya Kim MD / Aditya Kim MD Interpreting Provider: Aditya Kim MD Consult Discharge Plan - Plan Referrals: Henrry Mccullough MD [Primary Care Provider] - (Web requested 11/14/16)
--- NOTE | 2016-11-18 17:28 | Internal Med Progress Note ---
Date of Encounter: 11/15/16 Time of Encounter: 14:00 - Assessment and plan (1) Acute CHF Current Visit: Yes Status: Acute Assessment and plan: Improving slowly. Increase IV Lasix as patient continues to be hypoxic and symptomatic. We will place indwelling Sandhu catheter for appropriate urine output monitoring. Continue strict intake/output monitoring, fluid restriction and daily weights. Echocardiogram from July 2016 shows preserved EF with severe pulmonary hypertension. Continue beta lesvia and calcium channel lesvia. Telemetry monitoring. Continues to require high flow oxygen. PT evaluation recommends SNF placement; SS on board. Qualifiers: Congestive heart failure type: diastolic Qualified Code(s): I50.31 - Acute diastolic (congestive) heart failure (2) CKD (chronic kidney disease), stage III Current Visit: Yes Status: Chronic Assessment and plan: Serum creatinine noted to be around baseline. Nephrology follow-up appreciated , agree with increasing Lasix.. (3) Chronic anemia Current Visit: Yes Status: Chronic (4) Obesity (BMI 30-39.9) Current Visit: Yes Status: Chronic (5) DM (diabetes mellitus), type 2 Current Visit: Yes Status: Chronic Assessment and plan: Continue Accu-Chek blood glucose monitoring. Blood sugars noted to be well controlled. Continue sliding scale insulin. Diabetic diet. 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 mellitus termination clerk insulin use: with termination clerk use Chronic kidney disease stage: stage 3 (moderate) Qualified Code(s): E11.22 - Type 2 diabetes mellitus with diabetic chronic kidney disease; N18.3 - Chronic kidney disease, stage 3 ( moderate); Z79.4 - termination clerk (current) use of insulin (6) Cirrhosis Current Visit: Yes Status: Chronic Qualifiers: Hepatic cirrhosis type: unspecified hepatic cirrhosis Ascites presence: without ascites Qualified Code(s): K74.60 - Unspecified cirrhosis of liver (7) Atrial fibrillation Current Visit: Yes Status: Chronic Assessment and plan: Currently rate controlled. Continue Cardizem, metoprolol, long-term anticoagulation with Eliquis. Qualifiers: Atrial fibrillation type: chronic Qualified Code(s): I48.2 - Chronic atrial fibrillation (8) COPD (chronic obstructive pulmonary disease) Current Visit: Yes Status: Chronic Qualifiers: COPD type: unspecified COPD Qualified Code(s): J44.9 - Chronic obstructive pulmonary disease, unspecified (9) LITO on CPAP Current Visit: Yes Status: Chronic - Subjective Interval history: Reports no chest pain, continues to have shortness of breath. No cough, hemoptysis. Continues to require high flow supplemental oxygen. - Constitutional Vitals: Temp Pulse Resp BP Pulse Ox 98.9 F 79 18 119/69 94 11/18/16 15:51 11/18/16 15:51 11/18/16 16:14 11/18/16 15:51 11/18/16 16:14 General appearance: Present: A&O X 3, answers questions appropriately - Respiratory Respiratory exam: Present: rales (Bibasal crackles). Absent: accessory muscle use, rhonchi, wheezes - Cardiovascular Cardiovascular exam: Present: irregular rhythm, +S1, +S2. Absent: diastolic murmur, gallop, rubs, systolic murmur - GI/Abdominal GI/Abdominal exam: Present: normal bowel sounds, soft, no peritoneal signs. Absent: distended, tenderness - Extremities Exam Extremities exam: Present: full ROM, pedal edema, warm, radial pulses palpable and symetrical. Absent: calf tenderness, cyanotic Internal Medicine: Result - Labs CBC & Chem 7: 11/13/16 07:07 11/18/16 09:16 Labs: BMP 11/18/16 11/18/16 07:21 09:16 Sodium 128 L 127 L Potassium 4.7 H 5.4 H Chloride 88 L 89 L Carbon Dioxide 27 25 BUN 48 H 43 H Creatinine 2.88 H 2.95 H Glucose 148 H 144 H Calcium 9.1 8.8 Liver Function 11/18/16 Range/Units 09:16 Total Bilirubin 0.7 (0.2-1.2) mg/dL AST 33 (5-34) Units/L ALT 18 (0-55) Units/L Alkaline Phosphatase 90 (38-126) Units/L Albumin 2.5 L (3.5-5.0) g/dL - Impressions Impressions Chest CT 11/18/16 08:23 IMPRESSION: Increased severity of extensive right greater than left pulmonary disease. A combination of pneumonia and pulmonary edema is suspected. Underlying malignancy cannot excluded and follow-up is needed. Moderate bilateral pleural effusions without significant change. Unchanged mediastinal adenopathy. Ascites, partially visualized. D/ / Aditya Kim MD / Aditya Kim MD Interpreting Provider: Aditya Kim MD Consult Discharge Plan - Plan Referrals: Henrry Mccullough MD [Primary Care Provider] - (Web requested 11/14/16)
[2016-11-18] MEDS: Bumetanide 1 MG/4 ML VIAL IVP SCH (20:32)
[2016-11-18] MEDS: Insulin DETEMIR 100 UNIT/ML X5UNITS SQ SCH (20:32)
[2016-11-19] MEDS: Ipratropium/Albuterol Neb 3 ML IH SCH ×4 (03:23→22:05)
[2016-11-19 05:39] LABS: Calcium 9.3 mg/dL (8.6-10.8); Potassium 4.9 mEq/L (3.5-4.5)
--- NOTE | 2016-11-19 08:36 | Nephrology Progress Note ---
Date of Encounter: 11/19/16 Time of Encounter: 08:34 - Assessment and Plan (1) CKD (chronic kidney disease), stage III Current Visit: Yes Status: Chronic Patient's renal failure is worsening. It is unclear if this is related to diuresis versus some other etiology. It seems as though the diuretics need to be continued because of the shortness of breath and peripheral edema that the patient exhibits. Chest x-ray also suggests pulmonary edema. Hopefully the patient will agree to undergo a thoracentesis which hopefully will improve some of her dyspnea. She may also benefit from another pulmonary consultation. If the patient's renal function worsened she may require initiation of dialysis. I did discuss this with the patient and so far she seems agreeable. (2) Type 2 diabetes mellitus with diabetic chronic kidney disease Current Visit: Yes Status: Acute Qualifiers: Diabetes mellitus manager terminal insulin use: without residential use Chronic kidney disease stage: stage 3 (moderate) Qualified Code(s): E11.22 - Type 2 diabetes mellitus with diabetic chronic kidney disease; N18.3 - Chronic kidney disease, stage 3 (moderate) (3) Benign hypertension with chronic kidney disease, stage III Current Visit: Yes Status: Acute (4) Acute on chronic diastolic CHF (congestive heart failure) Current Visit: Yes Status: Acute Subjective Interval history: Patient remained short of breath. She is dependent on supplemental oxygen. She is unable to lie flat. Renal function is worsening. Urinary output is inaccurate according to the nurse. CT scan shows pleural effusions and no lymphadenopathy. Apparently patient has declined bronchoscopy in the past. Objective - Vital Signs Vital signs: Vital Signs Temp Pulse Resp BP Pulse Ox 11/19/16 08:21 98.4 F 73 18 121/71 92 11/19/16 05:06 98.9 F 88 18 123/67 91 11/19/16 03:25 16 94 11/19/16 00:27 98.6 F 80 18 147/69 95 11/18/16 21:10 14 92 11/18/16 19:57 99.1 F 77 18 123/52 90 11/18/16 16:14 18 94 11/18/16 15:51 98.9 F 79 18 119/69 91 11/18/16 10:49 18 93 Intake and Output 11/18/16 11/19/16 11/19/16 23:59 07:59 15:59 Output Total 200 / 200 Balance -200 / -200 Output: Catheter 200 / 200 Other: Meal Dinner Percent of Meal Consumed 85% Stool Size Moderate Stool Consistency loose Stool Color Brown Weight 96.83 kg Blood Glucose* 140 169 Patient Weight 11/19/16 23:59 Weight 96.83 kg - General Appearance Exam: Patient is alert. She is in no acute distress. Lungs demonstrate by basilar rales. Heart regular rate and rhythm. Abdomen is benign. She continues to have some lower extremity swelling. Sandhu catheter is in place. - Lab 11/13/16 07:07 11/19/16 04:55 Most recent lab results Calcium 9.3 mg/dL (8.6-10.8) 11/19/16 04:55 Phosphorus 3.9 mg/dL (2.3-4.7) 11/13/16 07:07 Consult Discharge Plan - Plan Referrals: Henrry Mccullough MD [Primary Care Provider] - (Web requested 11/14/16)
--- NOTE | 2016-11-19 08:43 | Internal Med Progress Note ---
Date of Encounter: 11/19/16 Time of Encounter: 08:41 - Assessment and plan (1) Acute CHF Current Visit: Yes Status: Acute Assessment and plan: no significant improvement; CT chest shows B/L mild-moderate pleural effusions; U/S-guided left-sided thoracentesis has been completed by IR today with only 400cc output; continue IV Bumex for now along with beta-lesvia; continues to require high-flow O2; case d/w Nephrology, possible initiation of HD during this admission; will consult Palliative care for discussion of goals of care as patient seems to have a guarded prognosis at this time; patient has refused bronchoscopy in the past and continues to refuse at this time, due to recurrent episodes of pleural effusion and respiratory failure; Qualifiers: Congestive heart failure type: diastolic Qualified Code(s): I50.31 - Acute diastolic (congestive) heart failure (2) CKD (chronic kidney disease), stage III Current Visit: Yes Status: Chronic Assessment and plan: Nephrology on board; agree with current plan, possible HD initiation during this admission after placement of HD catheter; (3) Chronic anemia Current Visit: Yes Status: Chronic (4) Obesity (BMI 30-39.9) Current Visit: Yes Status: Chronic (5) DM (diabetes mellitus), type 2 Current Visit: Yes Status: Chronic Assessment and plan: continue Accucheck blood glucose monitoring with basal bolus insulin regimen; diabetic diet; 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 mellitus snf insulin use: with superintendent terminal use Chronic kidney disease stage: stage 3 (moderate) Qualified Code(s): E11.22 - Type 2 diabetes mellitus with diabetic chronic kidney disease; N18.3 - Chronic kidney disease, stage 3 ( moderate); 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.4 - 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 operator (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) use of insulin (6) Cirrhosis Current Visit: Yes Status: Chronic Qualifiers: Hepatic cirrhosis type: unspecified hepatic cirrhosis Ascites presence: without ascites Qualified Code(s): K74.60 - Unspecified cirrhosis of liver (7) Atrial fibrillation Current Visit: Yes Status: Chronic Assessment and plan: continue rate-control meds and long-term anticoagulation; Qualifiers: Atrial fibrillation type: chronic Qualified Code(s): I48.2 - Chronic atrial fibrillation (8) COPD (chronic obstructive pulmonary disease) Current Visit: Yes Status: Chronic Qualifiers: COPD type: unspecified COPD Qualified Code(s): J44.9 - Chronic obstructive pulmonary disease, unspecified (9) LITO on CPAP Current Visit: Yes Status: Chronic - Subjective Interval history: Continues to feel weak and short of breath; sitting up in bed, requiring 5L high -flow O2; denies chest pain, does have orthopnea, leg swelling; refuses chest replacement but is agreeable to hemodialysis and thoracentesis, if needed. - Constitutional Vitals: Temp Pulse Resp BP Pulse Ox 98.4 F 73 18 121/71 92 11/19/16 08:21 11/19/16 08:21 11/19/16 08:21 11/19/16 08:21 11/19/16 08:21 General appearance: Present: mild distress, A&O X 3, answers questions appropriately - Respiratory Respiratory exam: Present: rales (Bibasal crackles). Absent: accessory muscle use, rhonchi, wheezes - Cardiovascular Cardiovascular exam: Present: RRR, +S1, +S2. Absent: diastolic murmur, gallop, rubs, systolic murmur - GI/Abdominal GI/Abdominal exam: Present: normal bowel sounds, soft, no peritoneal signs. Absent: distended, tenderness - Extremities Exam Extremities exam: Present: pedal edema, warm, radial pulses palpable and symetrical. Absent: calf tenderness, cyanotic - Neurological Exam Neurological exam: Present: CN II-XII intact, oriented X3, no focal deficits. Absent: pronater drift, facial droop, speech deficit Internal Medicine: Result - Labs CBC & Chem 7: 11/26/16 03:20 11/26/16 03:20 Labs: BMP 11/18/16 11/19/16 09:16 04:55 Sodium 127 L 129 L Potassium 5.4 H 4.9 H Chloride 89 L 88 L Carbon Dioxide 25 25 BUN 43 H 53 H Creatinine 2.95 H 3.33 H Glucose 144 H 139 H Calcium 8.8 9.3 Liver Function 11/18/16 Range/Units 09:16 Total Bilirubin 0.7 (0.2-1.2) mg/dL AST 33 (5-34) Units/L ALT 18 (0-55) Units/L Alkaline Phosphatase 90 (38-126) Units/L Albumin 2.5 L (3.5-5.0) g/dL - Impressions Impressions Chest CT 11/18/16 08:23 IMPRESSION: Increased severity of extensive right greater than left pulmonary disease. A combination of pneumonia and pulmonary edema is suspected. Underlying malignancy cannot excluded and follow-up is needed. Moderate bilateral pleural effusions without significant change. Unchanged mediastinal adenopathy. Ascites, partially visualized. D/ / Aditya Kim MD / Aditya Kim MD Interpreting Provider: Aditya Kim MD Consult Discharge Plan - Plan Referrals: Henrry Mccullough MD [Primary Care Provider] - (Web requested 11/14/16)
[2016-11-19] MEDS: Lactulose Oral Soln 20 GM/30 ML UDC PO SCH ×4 (09:07→20:48)
[2016-11-19] MEDS: Insulin LISPRO 300 UNITS/3 ML VIAL SQ SCH ×4 (09:08→21:37)
[2016-11-19] MEDS: Bumetanide 1 MG/4 ML VIAL IVP SCH ×2 (09:08→16:06)
[2016-11-19] MEDS: Aspirin 81 MG TAB.CHEW PO SCH (09:09)
[2016-11-19] MEDS: APIXABAN 5 MG TABLET PO SCH ×2 (09:09→20:49)
[2016-11-19] MEDS: Gabapentin 100 MG CAPSULE PO SCH ×2 (09:09→20:49)
[2016-11-19] MEDS: Sucralfate 1 GM TABLET PO SCH ×2 (09:09→16:07)
[2016-11-19] MEDS: Folic Acid 1 MG TABLET PO SCH (09:09)
--- NOTE | 2016-11-19 10:01 | Palliative - Consult Note ---
<Kobe Batres - Last Filed: 11/19/16 11:30> Date of Encounter: 11/19/16 Time of Encounter: 09:50 - Assessment and Plan (1) Chronic respiratory failure Current Visit: Yes Status: Chronic Assessment and plan: Likely exacerbated by bilateral pleural effusions in setting of COPD and CHF Patient is agreeable to having another thoracentesis done, primary team has consulted IR for procedure As noted previously, she has declined chest tube placement due to bad experience Primary team may consult pulmonology in future for possible bronchoscopy as CT could not rule out malignancy Continue with supplemental oxygen, scheduled breathing treatments Qualifiers: Qualified Code(s): J96.11 - Chronic respiratory failure with hypoxia (2) Goals of care, counseling/discussion Current Visit: No Status: Acute Assessment and plan: Discussed code status at length with patient who confirms she would like be FULL CODE She does have family members nearby including daughter, 2 brothers, and a sister , but has not yet elected a medical power of employment attorney Will have drug abuse social worker facilitate in obtaining power of employment attorney At this point she is not hospice candidate and she still desires aggressive care (3) Bladder spasm Current Visit: Yes Status: Acute Assessment and plan: She currently has Sandhu inserted and has the sensation she needs to urinate, likely due to bulb from catheter Primary team may consider starting on Oxybutynin if symptoms do not resolve Palliative-CN HPI - Data of Consult Patient: new to practice Consult date: 11/19/16 Requesting Physician: Tiffany Jeffries MD Primary Care Provider: Henrry Mccullough MD Family Provider: Dr. Montez - Consult Narrative Palliative Care/Comfort Measures: Palliative care Reason for consult: multiple medical problems, not improving History of present illness: Ms. Rodriguez is a 71 year old female who presented to the ED on 11/12 with shortness of breath attributed to acute exacerbation of CHF. Palliative care has been consulted today as patient has multiple co-morbidities and is not improving. Patient was recently here 2 months ago also for SOB and was discharged to [facility] where she underwent rehab for 2-3 weeks. She was recently living with her daughter. She states her breathing has been about the same for the past week since admission. She denies any cough or wheezing and is currently on home dose of 5 L oxygen. She complains of chronic low back pain and also nausea without vomiting. She has history of cirrhosis and is on lactulose, but admits to constipation. Patient does have CKD III but has been worsening over past several days. She is being seen by Dr. Bowden who is managing her diuretics and may decide to initiate dialysis if her renal function does not improve. Patient did have thoracentesis during her last admission and is agreeable to that procedure again if necessary, but vehemently denies chest tube placement. She wishes to leave her code status as FULL CODE, but has yet to elect a power of employment attorney. CC: Tiffany Jeffries MD Past Med Surg Social Fam HX - Past Medical History Medical history: arthritis, atrial fibrillation, cirrhosis, CHF, COPD, diabetes , GERD, hyperlipidemia, hypertension, renal disease, other Psychiatric history: anxiety, panic disorder - Past Surgical History Surgical History: cholecystectomy, hysterectomy - Social History Smoking Status: Former smoker Smokeless Tobacco Status: No Alcohol use: none Drug use: none - Family History Mother Living Status: Hx Family Cardiac Disorders: Yes (atrial fibrillation) Hx Family GI Disorders: Yes (Polyps) Hx Family Endocrine Disorder: Yes (DM) Father Living Status: Hx Family Cardiac Disorders: Yes (HTN) Hx Family Cancer: Yes (Leukemia) Sister Living Status: Still Living Hx Family Cancer: Yes (Breast Cancer, age 40's) Hx Family Endocrine Disorder: Yes (diabetes mellitus) Brother Living Status: Still Living Hx Family Cardiac Disorders: No Hx Family Respiratory Disorders: No Hx Family Cancer: No Hx Family GI Disorders: No Hx Family Endocrine Disorder: Yes Hx Family Neuromuscular Disorders: No Hx Family Neurologic Disorders: No Hx Family HEENT Disorders: No Hx Family Autoimmune Disorders: No Medications and Allergies GlipiZIDE [Glucotrol] 10 mg PO BID 08/14/15 [History] Metoprolol [Lopressor] 12.5 mg PO BID 08/14/15 [History] Sertraline [Zoloft] 150 mg PO DAILY 08/14/15 [History] Sucralfate [Carafate] 2 gm PO BID 08/14/15 [History] Lactulose 10 gm PO QID 06/24/16 [History] Aspirin 81 mg PO DAILY 07/11/16 [History] Fluticasone/Vilanterol [Breo Ellipta 100-25 Mcg INH] 1 each IH DAILY 07/11/16 [ History] Pantoprazole Sodium [Protonix] 40 mg PO DAILY 07/11/16 [History] Oxycodone HCl 10 mg PO Q6H PRN #25 tablet 07/23/16 [Rx] Diltiazem [Cardizem] 30 mg PO TID 09/20/16 [History] Gabapentin [Neurontin] 100 mg PO BID 09/20/16 [History] Insulin DETEMIR [Levemir Flextouch] 5 unit SQ HS 09/20/16 [History] Sennosides [Senna] 17.2 mg PO DAILY 09/20/16 [History] Simethicone [Gas-X] 120 mg PO BID PRN 09/20/16 [History] Torsemide [Demadex] 10 mg PO BID 09/20/16 [History] Apixaban [Eliquis] 2.5 mg PO BID 11/13/16 [History] Insulin ASPART [Novolog Flexpen] 0 - 12 units SQ TID PRN 11/13/16 [History] Spironolactone [Aldactone] 25 mg PO DAILY 11/13/16 [History] Allergies ceftriaxone [From Rocephin] Allergy (Severe, Verified 08/14/16 17:10) Anaphylaxis Occured at [facility]. Required ICU transfer, intubation, and mechanical ventilation. ciprofloxacin [From Cipro] Allergy (Mild, Verified 08/14/16 17:10) Rash sulfamethoxazole [From Bactrim] Allergy (Verified 08/14/16 17:10) See Comments trimethoprim [From Bactrim] Allergy (Verified 08/14/16 17:10) See Comments rozeta Allergy (Uncoded 06/24/16 15:20) See Comments - Constitutional Constitutional ROS PAL: no chills, no fever(s) - EENT Eyes: no change in vision, no diplopia - Cardiovascular Cardiovascular ROS: edema, irregular heart rhythm, leg edema, no chest pain, no diaphoresis, no syncope - Respiratory Respiratory: no cough, no wheezing, no excessive phlegm production - Gastrointestinal Gastrointestinal: abdominal pain (mild and diffuse), constipation, loose stools , nausea, no diarrhea, no hematemesis, no melena, no vomiting - Musculoskeletal Musculoskeletal ROS IM: back pain - Neurological Neurological ROS: no abnormal speech, no headache(s), no numbness Palliative Care-Exam - Constitutional Vitals: Temp Pulse Resp BP Pulse Ox 98.4 F 73 18 121/71 92 11/19/16 08:21 11/19/16 08:21 11/19/16 08:21 11/19/16 08:21 11/19/16 09:10 General appearance: Present: cooperative, obese - Head Head Exam: Present: atraumatic, normal inspection, normocephalic - Eye Eye exam: Present: EOMI, PERRL, sclera anicteric - ENT ENT exam: Present: mucous membranes moist - Respiratory Respiratory exam: Present: decreased breath sounds (R > L), rales. Absent: wheezes - Expanded Respiratory Exam Location: decreased breath sounds: Right, rales: Left - Cardiovascular Cardiovascular exam: Present: irregular rhythm, +S1, +S2 - GI/Abdominal Exam GI/Abdominal exam: Present: distended, tenderness (diffusely). Absent: firm, guarding, rebound, rigid - Rectal Rectal exam: Present: deferred - Catheter Type: Urethral (Sandhu) - Extremities Exam Extremities exam: Present: pedal edema (2+). Absent: calf tenderness, tenderness - Neurological Exam Neurological exam: Present: alert, CN II-XII intact, oriented X3, no focal deficits. Absent: facial droop - Psychiatric Psychiatric exam: Present: normal affect, normal mood Internal Medicine - CN: Reslt - Labs CBC & Chem 7: 11/13/16 07:07 11/19/16 04:55 Labs: BMP 11/18/16 11/19/16 09:16 04:55 Sodium 127 L 129 L Potassium 5.4 H 4.9 H Chloride 89 L 88 L Carbon Dioxide 25 25 BUN 43 H 53 H Creatinine 2.95 H 3.33 H Glucose 144 H 139 H Calcium 8.8 9.3 Liver Function 11/18/16 Range/Units 09:16 Total Bilirubin 0.7 (0.2-1.2) mg/dL AST 33 (5-34) Units/L ALT 18 (0-55) Units/L Alkaline Phosphatase 90 (38-126) Units/L Albumin 2.5 L (3.5-5.0) g/dL Consult Discharge Plan - Plan Referrals: Henrry Mcucllough MD [Primary Care Provider] - (Web requested 11/14/16) Palliative Quality Palliative Quality: Screen for Code Status: Yes, Screen for Goals of Care: Yes, Screen for Pain: Yes, If Pain Regimen Started, Initiate Bowel Regimen: Yes, Screen for Nausea/Vomitting: Yes Code Status: FULL CODE <Connor Nicole - Last Filed: 11/19/16 15:39> Date of Encounter: 11/19/16 Palliative-CN HPI - Data of Consult Requesting Physician: Tiffany Jeffries MD Primary Care Provider: Henrry Mccullough MD - Consult Narrative History of present illness: Ms. Rodriguez is a 71 year old female CC: Tiffany Jeffries MD Palliative Care-Exam - Constitutional Vitals: Temp Pulse Resp BP Pulse Ox 98.5 F 79 18 118/59 91 11/19/16 11:56 11/19/16 11:56 11/19/16 11:56 11/19/16 11:56 11/19/16 11:56 Internal Medicine - CN: Reslt - Labs CBC & Chem 7: 11/13/16 07:07 11/19/16 04:55 Labs: BMP 11/19/16 04:55 Sodium 129 L Potassium 4.9 H Chloride 88 L Carbon Dioxide 25 BUN 53 H Creatinine 3.33 H Glucose 139 H Calcium 9.3 - ABG Interpretation ABG results: PT/INR, D-dimer PT 15.2 Seconds (9.4-12.1) H 11/19/16 10:52 - Impressions Impressions Chest X-Ray 11/19/16 12:40 IMPRESSION: Stable bilateral pulmonary opacities. Bilateral pleural effusions. There has been a decrease in the left pleural effusion when compared to the previous exam. No pneumothorax. D/ / 11/19/2016 13:57:54 Daniella Monge MD / Fatoumata Collier Interpreting Provider: Daniella Monge MD - Attending Attestation I examined this patient and my medical decision-making was reviewed with the SPINNING FRAME CHANGER/PA/Advanced Practice Nurse/Resident Physician. I agree with the documented findings, disposition and treatment plan as described except to the extent set forth below.
[2016-11-19 11:03] LABS: INR 1.4; Prothrombin Time 15.2 Seconds (9.4-12.1)
--- NOTE | 2016-11-19 12:40 | IR Procedure Note ---
Date of procedure: 11/19/16 Consent Obtained: Verbal consent, Written consent Timeout: Correct patient and procedure verified, Correct site verified, Time out performed, Skin prep completed Local anesthetic: Lidocaine 1% Indications: effusion Procedure Performed: thoracentesis Site/Technique: L Results/Findings: serous fluid, amount pending Estimated blood loss (cc): 1 Complications: None; Tolerated procedure well Post Procedure Treatment Plan: CXR
--- NOTE | 2016-11-19 18:08 | Internal Med Progress Note ---
Date of Encounter: 11/16/16 Time of Encounter: 13:00 - Assessment and plan (1) Acute CHF Current Visit: Yes Status: Acute Assessment and plan: Improving slowly. IV Lasix is held per nephrology recommendations due to worsening serum creatinine. Continue strict intake/output monitoring, fluid restriction and daily weights. Echocardiogram from July 2016 shows preserved EF with severe pulmonary hypertension. Continue beta lesvia and calcium channel lesvia. Telemetry monitoring. Continues to require high flow oxygen. PT evaluation recommends SNF placement; SS on board. Qualifiers: Congestive heart failure type: diastolic Qualified Code(s): I50.31 - Acute diastolic (congestive) heart failure (2) CKD (chronic kidney disease), stage III Current Visit: Yes Status: Chronic Assessment and plan: Serum creatinine noted to be worsening. Nephrology follow-up appreciated, recommend to hold Lasix at this time and continue to monitor serum creatinine. (3) Chronic anemia Current Visit: Yes Status: Chronic (4) Obesity (BMI 30-39.9) Current Visit: Yes Status: Chronic (5) DM (diabetes mellitus), type 2 Current Visit: Yes Status: Chronic Assessment and plan: Continue Accu-Chek blood glucose monitoring. Blood sugars noted to be well controlled. Continue sliding scale insulin. Diabetic diet. 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 mellitus nursing home insulin use: with nursing home use Chronic kidney disease stage: stage 3 (moderate) Qualified Code(s): E11.22 - Type 2 diabetes mellitus with diabetic chronic kidney disease; N18.3 - Chronic kidney disease, stage 3 ( moderate); Z79.4 - nursing home (current) use of insulin (6) Cirrhosis Current Visit: Yes Status: Chronic Qualifiers: Hepatic cirrhosis type: unspecified hepatic cirrhosis Ascites presence: without ascites Qualified Code(s): K74.60 - Unspecified cirrhosis of liver (7) Atrial fibrillation Current Visit: Yes Status: Chronic Assessment and plan: Currently rate controlled. Continue Cardizem, metoprolol, long-term anticoagulation with Eliquis. Qualifiers: Atrial fibrillation type: chronic Qualified Code(s): I48.2 - Chronic atrial fibrillation (8) COPD (chronic obstructive pulmonary disease) Current Visit: Yes Status: Chronic Qualifiers: COPD type: unspecified COPD Qualified Code(s): J44.9 - Chronic obstructive pulmonary disease, unspecified (9) LITO on CPAP Current Visit: Yes Status: Chronic - Subjective Interval history: No significant change in clinical status. Does not report chest pain but continues to have shortness of breath and leg swelling. Continues to require high flow supplemental oxygen. Plan of care discussed in detail with patient's daughter at bedside. - Constitutional Vitals: Temp Pulse Resp BP Pulse Ox 98.9 F 73 18 127/70 96 11/19/16 15:54 11/19/16 15:54 11/19/16 15:54 11/19/16 15:54 11/19/16 15:54 General appearance: Present: A&O X 3, answers questions appropriately - Respiratory Respiratory exam: Present: rales (Bibasal crackles unchanged). Absent: accessory muscle use, rhonchi, wheezes - Cardiovascular Cardiovascular exam: Present: RRR, +S1, +S2. Absent: diastolic murmur, gallop, rubs, systolic murmur - GI/Abdominal GI/Abdominal exam: Present: normal bowel sounds, soft (Obese), no peritoneal signs. Absent: distended, tenderness - Extremities Exam Extremities exam: Present: full ROM, pedal edema, warm, radial pulses palpable and symetrical. Absent: calf tenderness, cyanotic Internal Medicine: Result - Labs CBC & Chem 7: 11/13/16 07:07 11/19/16 04:55 Labs: BMP 11/19/16 04:55 Sodium 129 L Potassium 4.9 H Chloride 88 L Carbon Dioxide 25 BUN 53 H Creatinine 3.33 H Glucose 139 H Calcium 9.3 - ABG Interpretation ABG results: PT/INR, D-dimer PT 15.2 Seconds (9.4-12.1) H 11/19/16 10:52 - Impressions Impressions Thoracentesis Ultrasound 11/19/16 08:43 IMPRESSION: Successful ultrasound guided left-sided therapeutic thoracentesis. D/ / David Hammond MD / David Hammodn MD Interpreting Provider: David Hammond MD Chest X-Ray 11/19/16 12:40 IMPRESSION: Stable bilateral pulmonary opacities. Bilateral pleural effusions. There has been a decrease in the left pleural effusion when compared to the previous exam. No pneumothorax. D/ / 11/19/2016 13:57:54 Daniella Monge MD / Ftaoumata Collier Interpreting Provider: Daniella Monge MD Consult Discharge Plan - Plan Referrals: Henrry Mccullough MD [Primary Care Provider] - (Web requested 11/14/16)
[2016-11-19] MEDS: *HR* OxyCODONE Immed Rel 5 MG TABLET PO PRN (20:48)
[2016-11-19] MEDS: Insulin DETEMIR 100 UNIT/ML X5UNITS SQ SCH (21:42)
[2016-11-20] MEDS: Ipratropium/Albuterol Neb 3 ML IH SCH ×4 (04:34→22:35)
[2016-11-20 04:46] LABS: Basophils % 0.2 %; Eosinophils # 0.1 K/mcL (0.0-0.6); Eosinophils % 0.9 %; Hematocrit 27.8 % (35.3-44.9); Hemoglobin 8.4 g/dL (11.5-15.4); Immature Granulocytes % 1.1 % (0-4); Lymphocytes # 0.5 K/mcL (0.6-4.6); Lymphocytes % 3.4 %; Mean Corpuscular HGB Conc 30.2 g/dL (31.6-35.5); Mean Corpuscular Hemoglobin 23.5 pg (28.0-33.3); Mean Corpuscular Volume 77.9 fL (83.0-100.0); Mean Platelet Volume 8.5 fL (9.4-12.4); Monocytes # 1.1 K/mcL (0.0-1.3); Monocytes % 7.9 %; Neutrophils # 11.9 K/mcL (1.6-8.9); Platelet Count 351 K/mcL (140-400); Red Blood Count 3.57 M/mcL (3.82-4.97); Red Cell Distribution Width 15.9 % (11.5-14.5); Segmented Neutrophils % 86.5 %
[2016-11-20 05:06] LABS: Albumin 2.6 g/dL (3.5-5.0); Albumin/Globulin Ratio 0.7 (1.1-2.2); Bilirubin,Total 0.6 mg/dL (0.2-1.2); Calcium 9.3 mg/dL (8.6-10.8); Globulin 3.8 g/dL (2.4-3.5); Potassium 4.7 mEq/L (3.5-4.5); Total Protein 6.4 g/dL (6.0-8.3)
[2016-11-20] MEDS: Bumetanide 1 MG/4 ML VIAL IVP SCH ×2 (08:49→16:11)
[2016-11-20] MEDS: Lactulose Oral Soln 20 GM/30 ML UDC PO SCH ×4 (08:49→21:54)
[2016-11-20] MEDS: *HR* OxyCODONE Immed Rel 5 MG TABLET PO PRN ×2 (08:49→22:01)
[2016-11-20] MEDS: Gabapentin 100 MG CAPSULE PO SCH ×2 (08:49→21:53)
[2016-11-20] MEDS: APIXABAN 5 MG TABLET PO SCH ×2 (08:50→21:54)
[2016-11-20] MEDS: Folic Acid 1 MG TABLET PO SCH (08:51)
[2016-11-20] MEDS: Aspirin 81 MG TAB.CHEW PO SCH (08:51)
[2016-11-20] MEDS: Sucralfate 1 GM TABLET PO SCH ×2 (08:53→16:11)
[2016-11-20] MEDS: Insulin LISPRO 300 UNITS/3 ML VIAL SQ SCH ×4 (08:54→23:49)
--- NOTE | 2016-11-20 12:08 | Event Note ---
Date of Encounter: 11/20/16 Time of Encounter: 12:05 pt sensrium does wax and wane but when she is sharp she has indicated she wishes full code and did engage in a discussion of what that entails. Goals have been sedated and the plan is for her to [facility] for rehabilitation. Agents goals of care have been line, a plan is in place and CODE STATUS has been discussed there is nothing further for palliative to offer at this time and we will sign off please feel free to reconsult if we can help in any way.
--- NOTE | 2016-11-20 13:02 | Nephrology Progress Note ---
Date of Encounter: 11/20/16 Time of Encounter: 13:00 - Assessment and Plan (1) CKD (chronic kidney disease), stage III Current Visit: Yes Status: Chronic Patient's renal failure is worsening. It is unclear if this is related to diuresis versus some other etiology. It seems as though the diuretics need to be continued because of the shortness of breath and peripheral edema that the patient exhibits. Chest x-ray also suggests pulmonary edema. The patient's renal function continues to worsen. Seems as though her urine output is low. I recommend that we initiate dialysis after placement of a temporary dialysis catheter. I did discuss this with the patient's daughter Radha. I answered all her questions in the patient's daughter did give permission. (2) Type 2 diabetes mellitus with diabetic chronic kidney disease Current Visit: Yes Status: Acute Qualifiers: Diabetes mellitus terminal superintendent insulin use: without terminal superintendent use Chronic kidney disease stage: stage 3 (moderate) Qualified Code(s): E11.22 - Type 2 diabetes mellitus with diabetic chronic kidney disease; N18.3 - Chronic kidney disease, stage 3 (moderate) (3) Benign hypertension with chronic kidney disease, stage III Current Visit: Yes Status: Acute (4) Acute on chronic diastolic CHF (congestive heart failure) Current Visit: Yes Status: Acute Subjective Interval history: I saw the patient earlier this morning. The patient was agitated and she said she did not feel well. She thought her breathing was a little bit better. I returned again see the patient. She is more lethargic and somewhat difficult to arouse. The nurse reports she may receive some pain medication. Her renal function continues to worsen. If her chart is accurate she will limit 200 mL of urine yesterday. I suggested that we get the patient started on dialysis. Objective - Vital Signs Vital signs: Vital Signs Temp Pulse Resp BP Pulse Ox 11/20/16 11:37 97.5 F L 70 18 115/66 95 11/20/16 09:59 18 91 11/20/16 07:59 97.6 F 70 18 121/65 91 11/20/16 04:34 18 90 11/20/16 04:29 97.6 F 74 18 90/56 90 11/20/16 00:14 98.4 F 75 18 121/71 90 11/19/16 22:08 20 97 11/19/16 21:00 98.3 F 103 17 129/74 91 11/19/16 15:54 98.9 F 73 18 127/70 96 Intake and Output 11/19/16 11/20/16 11/20/16 23:59 07:59 15:59 Output Total 400 / 400 Balance -400 / -400 Output: Catheter 400 / 400 Other: Stool Size Moderate Stool Consistency liquid Stool Color Brown # Bowel Movements 1 Weight 98.061 kg Blood Glucose* 145 149 152 Patient Weight 11/20/16 23:59 Weight 98.061 kg - General Appearance Exam: Patient is more lethargic. She is somewhat difficult to arouse. She does moan a little bit and then drifts back off to sleep. Vital signs are stable. Neck is supple. Lungs symmetric breath sounds otherwise clear. Heart irregular rate and rhythm. Abdomen is benign. She continues to have some lower extremity swelling although it seems to be slowly improving. A Sandhu catheter remains in place. There is only small amount of urine in the Sandhu collection bag. - Lab 11/20/16 04:26 11/20/16 04:26 Most recent lab results Calcium 9.3 mg/dL (8.6-10.8) 11/20/16 04:26 Phosphorus 3.9 mg/dL (2.3-4.7) 11/13/16 07:07 Consult Discharge Plan - Plan Referrals: Henrry Mccullough MD [Primary Care Provider] - (Web requested 11/14/16)
[2016-11-20] MEDS ORDERED: 0.9 % Sodium Chloride 250 ML IVC PRN (13:05)
--- NOTE | 2016-11-20 13:34 | Internal Med Progress Note ---
Date of Encounter: 11/20/16 Time of Encounter: 10:00 - Assessment and plan (1) Acute CHF Current Visit: Yes Status: Acute Assessment and plan: On Bumex. Nephrology following. Given continued rise in serum creatinine, nephrology recommends temporary dialysis. Patient has consented to dialysis. Once temporary dialysis catheter has been placed, volume and managed to dialysis. Continue aspirin, beta lesvia. High risk for complications. No Qualifiers: Congestive heart failure type: diastolic Qualified Code(s): I50.31 - Acute diastolic (congestive) heart failure (2) Atrial fibrillation Current Visit: No Status: Chronic Assessment and plan: On anticoagulation with Eliquis. Heart rate is controlled. Qualifiers: Atrial fibrillation type: chronic Qualified Code(s): I48.2 - Chronic atrial fibrillation (3) Cirrhosis Current Visit: No Status: Acute Assessment and plan: Low albumin levels. Hyponatremia. Supportive care. Volume management with dialysis. Qualifiers: Hepatic cirrhosis type: other cirrhosis Qualified Code(s): K74.69 - Other cirrhosis of liver (4) CKD (chronic kidney disease), stage III Current Visit: Yes Status: Chronic Assessment and plan: Worsening creatinine and renal function. Nephrology following. Recommend dialysis at this time. (5) COPD (chronic obstructive pulmonary disease) Current Visit: Yes Status: Chronic Assessment and plan: Not in acute exacerbation. Qualifiers: COPD type: unspecified COPD Qualified Code(s): J44.9 - Chronic obstructive pulmonary disease, unspecified (6) DM (diabetes mellitus), type 2 Current Visit: Yes Status: Chronic Assessment and plan: Fairly controlled. 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 Sitting up in chair. Denies any significant shortness of breath or chest pain at this time. Tolerating diet well. - Constitutional Vitals: Temp Pulse Resp BP Pulse Ox 97.5 F L 70 18 115/66 95 11/20/16 11:37 11/20/16 11:37 11/20/16 11:37 11/20/16 11:37 11/20/16 11:37 General appearance: Present: cooperative, mild distress, A&O X 3, obese, answers questions appropriately - Neck Neck exam general surgery: Present: supple, trachea midline. Absent: lymphadenopathy - Respiratory Respiratory exam: Present: prolonged expiratory phase. Absent: accessory muscle use, rales, rhonchi, wheezes Additional comments: Basal crackles - Cardiovascular Cardiovascular exam: Present: RRR, +S1, +S2. Absent: diastolic murmur, gallop, rubs, systolic murmur - GI/Abdominal GI/Abdominal exam: Present: normal bowel sounds, soft, no peritoneal signs. Absent: distended, tenderness - Extremities Exam Extremities exam: Present: warm, radial pulses palpable and symetrical. Absent : calf tenderness, cyanotic, pedal edema - Neurological Exam Neurological exam: Present: alert, oriented X3, no focal deficits. Absent: facial droop, speech deficit - Skin Skin exam: Present: dry, intact Internal Medicine: Result - Labs CBC & Chem 7: 11/20/16 04:26 11/20/16 04:26 Labs: Short CBC 11/20/16 Range/Units 04:26 WBC 13.7 H D (4.3-11.1) K/mcL Hgb 8.4 L (11.5-15.4) g/dL Hct 27.8 L (35.3-44.9) % Plt Count 351 (140-400) K/mcL Neutrophils # 11.9 H (1.6-8.9) K/mcL BMP 11/20/16 04:26 Sodium 127 L Potassium 4.7 H Chloride 87 L Carbon Dioxide 24 BUN 57 H Creatinine 3.80 H Glucose 122 H Calcium 9.3 Liver Function 11/20/16 Range/Units 04:26 Total Bilirubin 0.6 (0.2-1.2) mg/dL AST 17 (5-34) Units/L ALT 16 (0-55) Units/L Alkaline Phosphatase 109 (38-126) Units/L Albumin 2.6 L (3.5-5.0) g/dL - ABG Interpretation ABG results: PT/INR, D-dimer PT 15.2 Seconds (9.4-12.1) H 11/19/16 10:52 - Impressions Impressions Thoracentesis Ultrasound 11/19/16 08:43 IMPRESSION: Successful ultrasound guided left-sided therapeutic thoracentesis. D/ / David Hammond MD / David Hammond MD Interpreting Provider: David Hammond MD Chest X-Ray 11/19/16 12:40 IMPRESSION: Stable bilateral pulmonary opacities. Bilateral pleural effusions. There has been a decrease in the left pleural effusion when compared to the previous exam. No pneumothorax. D/ / 11/19/2016 13:57:54 Daniella Monge MD / Fatoumata Collier Interpreting Provider: Daniella Monge MD Retroperitoneum Ultrasound 11/19/16 17:30 IMPRESSION: Unremarkable ultrasound of the kidneys and urinary bladder. D/ / Presley Shannon MD / Presley Shannon MD Interpreting Provider: Presley Shannon MD Consult Discharge Plan - Plan Referrals: Henrry Mccullough MD [Primary Care Provider] - (Web requested 11/14/16) - Attending Attestation This document has been at least partially created by [employer] recognition technology by Dr. Rajan. Errors in grammar, wording or other phrases may exist. If errors are found after the documentation is signed, they will be addressed individually in the addendum section of this document when appropriate.
[2016-11-20 16:23] LABS: Hepatitis B Surface Antigen Nonreactive (Nonreactive)
--- NOTE | 2016-11-20 16:25 | Pulmonology Consult Note ---
Date of Encounter: 11/20/16 Time of Encounter: 14:30 Assessment and Plan (1) Pleural effusion Current Visit: No Status: Chronic BL recurrent pleural effusions most likely due to heart failure. Reported hx of heart failure. Currently on diuretics with minimal response. Agree with Nephrology plan for diuresis with goal of fluid reduction. Recommend against further thoracenteses at this point as the more effective therapy is management of CHF and fluid removal. (2) Pulmonary hypertension due to left heart disease Current Visit: No Status: Chronic PH based on prior TTE most likely WHO group II. Management now should focus on treatment of left heart disease. If this can be managed adequately, further evaluation of other causes can be performed at a later time. (3) Lung abnormality Current Visit: Yes Status: Acute Difficult to assess from current imaging whether or not there are parenchymal nodules/masses or significant adenopathy within the mediastinum or hilum. There does appear to be some area of calcification suggesting a chronic change. Once heart failure and kidney function are adequately managed, this can be hopefully be further evaluated with contrast enhance imaging. History of Present Illness Consult date: 11/20/16 Reason for consult: pleural effusion Chief complaint: Dyspnea History of present illness: Consulted for evaluation of a 71y/o female admitted Apr 8 for several days of dyspnea following discharge for inpt physical rehab. Reports that her symptoms began approx 1-2 days prior to admission and were primarily exertional with minimal resting symptoms. Also reports progressive orthopnea. Denies cough, sputum production, f/c, ns, chest pain. Has had similar symptoms in the past but does not know the etiology. Following admission, was noted to have BL pleural effusions and underwent thoracentesis yesterday. States that her breathing has partially improved since the procedure. Has had thoracentesis in the past but cannot remember the indication. Past Med Surg Social Fam HX - Past Medical History Medical history: arthritis, atrial fibrillation, cirrhosis, CHF, COPD, diabetes , GERD, hyperlipidemia, hypertension, renal disease, other Psychiatric history: anxiety, panic disorder - Past Surgical History Surgical History: cholecystectomy, hysterectomy - Social History Smoking Status: Former smoker Smokeless Tobacco Status: No Alcohol use: none Drug use: none - Family History Mother Living Status: Hx Family Cardiac Disorders: Yes (atrial fibrillation) Hx Family GI Disorders: Yes (Polyps) Hx Family Endocrine Disorder: Yes (DM) Father Living Status: Hx Family Cardiac Disorders: Yes (HTN) Hx Family Cancer: Yes (Leukemia) Sister Living Status: Still Living Hx Family Cancer: Yes (Breast Cancer, age 40's) Hx Family Endocrine Disorder: Yes (diabetes mellitus) Brother Living Status: Still Living Hx Family Cardiac Disorders: No Hx Family Respiratory Disorders: No Hx Family Cancer: No Hx Family GI Disorders: No Hx Family Endocrine Disorder: Yes Hx Family Neuromuscular Disorders: No Hx Family Neurologic Disorders: No Hx Family HEENT Disorders: No Hx Family Autoimmune Disorders: No Medications and Allergies GlipiZIDE [Glucotrol] 10 mg PO BID 08/14/15 [History] Metoprolol [Lopressor] 12.5 mg PO BID 08/14/15 [History] Sertraline [Zoloft] 150 mg PO DAILY 08/14/15 [History] Sucralfate [Carafate] 2 gm PO BID 08/14/15 [History] Lactulose 10 gm PO QID 06/24/16 [History] Aspirin 81 mg PO DAILY 07/11/16 [History] Fluticasone/Vilanterol [Breo Ellipta 100-25 Mcg INH] 1 each IH DAILY 07/11/16 [ History] Pantoprazole Sodium [Protonix] 40 mg PO DAILY 07/11/16 [History] Oxycodone HCl 10 mg PO Q6H PRN #25 tablet 07/23/16 [Rx] Diltiazem [Cardizem] 30 mg PO TID 09/20/16 [History] Gabapentin [Neurontin] 100 mg PO BID 09/20/16 [History] Insulin DETEMIR [Levemir Flextouch] 5 unit SQ HS 09/20/16 [History] Sennosides [Senna] 17.2 mg PO DAILY 09/20/16 [History] Simethicone [Gas-X] 120 mg PO BID PRN 09/20/16 [History] Torsemide [Demadex] 10 mg PO BID 09/20/16 [History] Apixaban [Eliquis] 2.5 mg PO BID 11/13/16 [History] Insulin ASPART [Novolog Flexpen] 0 - 12 units SQ TID PRN 11/13/16 [History] Spironolactone [Aldactone] 25 mg PO DAILY 11/13/16 [History] Allergies ceftriaxone [From Rocephin] Allergy (Severe, Verified 08/14/16 17:10) Anaphylaxis Occured at [facility]. Required ICU transfer, intubation, and mechanical ventilation. ciprofloxacin [From Cipro] Allergy (Mild, Verified 08/14/16 17:10) Rash sulfamethoxazole [From Bactrim] Allergy (Verified 08/14/16 17:10) See Comments trimethoprim [From Bactrim] Allergy (Verified 08/14/16 17:10) See Comments rozeta Allergy (Uncoded 06/24/16 15:20) See Comments All Systems: A 10-system review of systems was performed and is negative for pertinent findings except as documented above in the HPI. - Constitutional Constitutional: no chills, no fever(s), no night sweats, no weight loss - EENT Nose, mouth and throat: no dysphagia - Cardiovascular Cardiovascular: dyspnea, dyspnea on exertion, orthopnea, paroxysmal nocturnal dyspnea, pedal edema, no chest pain, no diaphoresis - Respiratory Respiratory: dyspnea, dyspnea on exertion, no cough, no hemoptysis, no wheezing , no excessive phlegm production - Gastrointestinal Gastrointestinal: no abdominal pain, no nausea, no vomiting Physical Examination Vital Signs: Vital Signs, Last 4 Hours Temp Pulse Resp BP Pulse Ox 11/20/16 16:02 98.4 F 71 16 119/75 100 General appearance: no acute distress Eyes: nonicteric Effort: normal Inspection: normal Auscultation: bilateral: diminished breath sounds Cardiovascular: regular rate and rhythm Extremities: edema normal mental status mood appropriate, affect normal Results - Laboratory Findings CBC and BMP: 11/20/16 04:26 11/20/16 04:26 PT/INR, D-dimer PT 15.2 Seconds (9.4-12.1) H 11/19/16 10:52 Abnormal lab findings: Abnormal lab results WBC 13.7 K/mcL (4.3-11.1) H D 11/20/16 04:26 RBC 3.57 M/mcL (3.82-4.97) L 11/20/16 04:26 Hgb 8.4 g/dL (11.5-15.4) L 11/20/16 04:26 Hct 27.8 % (35.3-44.9) L 11/20/16 04:26 MCV 77.9 fL (83.0-100.0) L 11/20/16 04:26 MCH 23.5 pg (28.0-33.3) L 11/20/16 04:26 MCHC 30.2 g/dL (31.6-35.5) L 11/20/16 04:26 RDW 15.9 % (11.5-14.5) H 11/20/16 04:26 MPV 8.5 fL (9.4-12.4) L 11/20/16 04:26 Neutrophils # 11.9 K/mcL (1.6-8.9) H 11/20/16 04:26 Lymphocytes # 0.5 K/mcL (0.6-4.6) L 11/20/16 04:26 PT 15.2 Seconds (9.4-12.1) H 11/19/16 10:52 Sodium 127 mEq/L (136-145) L 11/20/16 04:26 Potassium 4.7 mEq/L (3.5-4.5) H 11/20/16 04:26 Chloride 87 mEq/L (98-109) L 11/20/16 04:26 BUN 57 mg/dL (7-20) H 11/20/16 04:26 Creatinine 3.80 mg/dL (0.57-1.11) H 11/20/16 04:26 Est GFR ( Amer) 14 (> 60) L 11/20/16 04:26 Est GFR (Non-Af Amer) 12 (> 60) L 11/20/16 04:26 Glucose 122 mg/dL (70-99) H 11/20/16 04:26 POC Glucose 152 (58-89) H 11/20/16 11:24 B-Natriuretic Peptide 536 pg/mL (0-100) H 11/12/16 08:42 Albumin 2.6 g/dL (3.5-5.0) L 11/20/16 04:26 Globulin 3.8 g/dL (2.4-3.5) H 11/20/16 04:26 Albumin/Globulin Ratio 0.7 (1.1-2.2) L 11/20/16 04:26 Urine Protein 30 mg/dL (Neg-Trace) H 11/12/16 07:58 Urine Blood Small (Negative) H 11/12/16 07:58 Ur Leukocyte Esterase Small (Negative) H 11/12/16 07:58 Urine Microscopic RBC 5-15 per hpf (0-3) H 11/12/16 07:58 Urine Microscopic WBC 5-15 per hpf (0-3) H 11/12/16 07:58 Ur Squamous Epith Cells Many per lpf (None-Few) H 11/12/16 07:58 Ur Culture Indicated? YES (NO) A 11/12/16 07:58 - Clinical Findings Intake & Output: Intake & Output 11/20/16 11/20/16 11/20/16 07:59 15:59 23:59 Output Total 400 / 400 Balance -400 / -400 Weight 98.061 kg Consult Discharge Plan - Plan Referrals: Henrry Mccullough MD [Primary Care Provider] - (Web requested 11/14/16)
[2016-11-20] MEDS ORDERED: *HR* Heparin 5,000 UNIT/ML VIAL ONE (17:27)
--- NOTE | 2016-11-20 17:39 | IR Procedure Note ---
Date of procedure: 11/20/16 Consent Obtained: Verbal consent Timeout: Correct patient and procedure verified, Correct site verified, Time out performed, Skin prep completed Indications: renal failure Procedure Performed: temp HDC Site/Technique: rt IJ was occluded. Had to use rt femoral vein Results/Findings: adequate placement Estimated blood loss (cc): 2 Complications: None; Tolerated procedure well Post Procedure Treatment Plan: KUB, then dialyze
[2016-11-20] MEDS: Insulin DETEMIR 100 UNIT/ML X5UNITS SQ SCH (21:54)
[2016-11-21] MEDS: Ondansetron ODT 4 MG TAB.RAPDIS SL PRN (01:31)
[2016-11-21] MEDS: Ipratropium/Albuterol Neb 3 ML IH SCH ×4 (03:28→21:37)
[2016-11-21] MEDS: *HR* OxyCODONE Immed Rel 5 MG TABLET PO PRN ×3 (04:43→22:15)
[2016-11-21 05:06] LABS: Basophils % 0.2 %; Eosinophils % 0.3 %; Hemoglobin 8.3 g/dL (11.5-15.4); Immature Granulocytes % 1.1 % (0-4); Lymphocytes # 0.4 K/mcL (0.6-4.6); Lymphocytes % 3.2 %; Mean Corpuscular HGB Conc 30.7 g/dL (31.6-35.5); Mean Corpuscular Hemoglobin 24.3 pg (28.0-33.3); Mean Corpuscular Volume 78.9 fL (83.0-100.0); Mean Platelet Volume 8.7 fL (9.4-12.4); Monocytes # 0.9 K/mcL (0.0-1.3); Neutrophils # 11.7 K/mcL (1.6-8.9); Platelet Count 355 K/mcL (140-400); Red Blood Count 3.42 M/mcL (3.82-4.97); Segmented Neutrophils % 88.2 %
[2016-11-21 05:23] LABS: Calcium 8.7 mg/dL (8.6-10.8); Potassium 4.4 mEq/L (3.5-4.5)
[2016-11-21] MEDS ORDERED: 0.9 % Sodium Chloride 250 ML IVC PRN (08:26)
--- NOTE | 2016-11-21 08:26 | Nephrology Progress Note ---
Date of Encounter: 11/21/16 Time of Encounter: 08:24 - Assessment and Plan (1) CKD (chronic kidney disease), stage III Current Visit: Yes Status: Chronic The patient remains oliguric and has clinical signs of volume overload. We will proceed with dialysis again today. Both for control of azotemia as well as for volume removal. Lungs the patient has a femoral dialysis catheter in place she will not be able to get up out of bed she will not be able to sit on the edge of the bed. (2) Type 2 diabetes mellitus with diabetic chronic kidney disease Current Visit: Yes Status: Acute Qualifiers: Diabetes mellitus halfway insulin use: without petroleum terminal plant operator use Chronic kidney disease stage: stage 3 (moderate) Qualified Code(s): E11.22 - Type 2 diabetes mellitus with diabetic chronic kidney disease; N18.3 - Chronic kidney disease, stage 3 (moderate) (3) Benign hypertension with chronic kidney disease, stage III Current Visit: Yes Status: Acute (4) Acute on chronic diastolic CHF (congestive heart failure) Current Visit: Yes Status: Acute Subjective Interval history: The patient seems more alert this morning compared to yesterday afternoon. She did undergo dialysis yesterday. She has a temporary dialysis catheter in the right femoral vein. She says that she is feeling better. She also says that her breathing is improved. Urine output is recorded as 400 mL's for yesterday. Azotemia is improved following dialysis. Objective - Vital Signs Vital signs: Vital Signs Temp Pulse Resp BP Pulse Ox 11/21/16 06:24 97.7 F 71 18 123/64 95 11/21/16 04:33 98.5 F 72 19 112/53 91 11/21/16 03:30 18 89 11/21/16 00:28 97.5 F L 65 19 109/57 92 11/20/16 22:35 18 100 11/20/16 21:55 98.5 F 75 19 117/54 91 11/20/16 21:25 98.3 F 22 141/56 11/20/16 21:20 157/58 11/20/16 21:05 151/58 11/20/16 20:50 144/66 11/20/16 20:35 141/70 11/20/16 20:20 149/75 11/20/16 20:05 108/67 11/20/16 19:50 125/68 11/20/16 19:35 106/83 11/20/16 19:20 98.7 F 22 122/60 11/20/16 16:35 16 100 11/20/16 16:02 98.4 F 71 16 119/75 100 11/20/16 11:37 97.5 F L 70 18 115/66 95 11/20/16 09:59 18 91 Intake and Output 11/20/16 11/21/16 11/21/16 23:59 07:59 15:59 Intake Total 600 / 600 Output Total 1600 / 1600 250 / 250 Balance -1000 / -1000 -250 / -250 Intake: Oral 0 / 0 Intake, Rinseback and 600 / 600 Flushes Output: Urine 0 / 0 250 / 250 Total Dialysis Output 1600 / 1600 Other: Stool Size Moderate Stool Consistency liquid Stool Color Brown # Bowel Movements 1 # Bowel Movement Diapers 1 Weight 98.1 kg Blood Glucose* 166 130 Hemodialysis Net Fluid 1000 Removed (mL) Patient Weight 11/21/16 23:59 Weight 98.1 kg - General Appearance Exam: Patient is more alert. She is in no acute distress. Lungs diminished breath sounds. Heart irregular rate and rhythm. Abdomen is benign. Lower extremity edema seems to be less. There is a temporary dialysis catheter in the right femoral vein. - Lab 11/21/16 04:48 11/21/16 04:48 Most recent lab results Calcium 8.7 mg/dL (8.6-10.8) 11/21/16 04:48 Phosphorus 3.9 mg/dL (2.3-4.7) 11/13/16 07:07 Consult Discharge Plan - Plan Referrals: Henrry Mccullough MD [Primary Care Provider] - (Web requested 11/14/16)
[2016-11-21] MEDS: Gabapentin 100 MG CAPSULE PO SCH ×2 (08:34→22:16)
[2016-11-21] MEDS: Aspirin 81 MG TAB.CHEW PO SCH (08:35)
[2016-11-21] MEDS: APIXABAN 5 MG TABLET PO SCH ×2 (08:35→22:16)
[2016-11-21] MEDS: Sucralfate 1 GM TABLET PO SCH ×2 (08:35→15:13)
[2016-11-21] MEDS: Folic Acid 1 MG TABLET PO SCH (08:35)
[2016-11-21] MEDS: Bumetanide 1 MG/4 ML VIAL IVP SCH ×2 (08:35→15:13)
[2016-11-21] MEDS: Lactulose Oral Soln 20 GM/30 ML UDC PO SCH ×4 (08:36→22:16)
[2016-11-21] MEDS: Insulin LISPRO 300 UNITS/3 ML VIAL SQ SCH ×4 (08:49→22:22)
--- NOTE | 2016-11-21 09:26 | Internal Med Progress Note ---
Date of Encounter: 11/21/16 Time of Encounter: 08:50 - Assessment and plan (1) Acute CHF Current Visit: Yes Status: Acute Assessment and plan: Patient is clinically getting better. Now started on dialysis per nephrology recommendations. About 5 L removed yesterday. Continue dialysis per nephrology recommendations. Moderate risk for complications Qualifiers: Congestive heart failure type: diastolic Qualified Code(s): I50.31 - Acute diastolic (congestive) heart failure (2) Atrial fibrillation Current Visit: No Status: Chronic Assessment and plan: Rate controlled. Continue Cardizem and metoprolol Qualifiers: Atrial fibrillation type: chronic Qualified Code(s): I48.2 - Chronic atrial fibrillation (3) Cirrhosis Current Visit: No Status: Chronic Assessment and plan: Supportive care. Qualifiers: Hepatic cirrhosis type: other cirrhosis Qualified Code(s): K74.69 - Other cirrhosis of liver (4) CKD (chronic kidney disease), stage III Current Visit: Yes Status: Chronic Assessment and plan: Patient currently receiving hemodialysis per nephrology recommendations after placement of temporary dialysis catheter. She does remain oliguric. (5) COPD (chronic obstructive pulmonary disease) Current Visit: Yes Status: Chronic Assessment and plan: On bronchodilator nebs. Qualifiers: COPD type: unspecified COPD Qualified Code(s): J44.9 - Chronic obstructive pulmonary disease, unspecified (6) DM (diabetes mellitus), type 2 Current Visit: Yes Status: Chronic Assessment and plan: Fairly controlled. No changes at this time. 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 mellitus jail insulin use: with jail use Chronic kidney disease stage: stage 3 (moderate) Qualified Code(s): E11.22 - Type 2 diabetes mellitus with diabetic chronic kidney disease; N18.3 - Chronic kidney disease, stage 3 ( moderate); Z79.4 - senior care (current) use of insulin (7) Obesity (BMI 30-39.9) Current Visit: Yes Status: Chronic (8) LITO on CPAP Current Visit: Yes Status: Chronic - Subjective Interval history: Patient is awake and alert and sitting up in chair without any complaints at this time. Denies any shortness of breath or any chest pain. Feels she is better. Tolerating diet well. - Constitutional Vitals: Temp Pulse Resp BP Pulse Ox 97.7 F 71 18 123/64 95 11/21/16 06:24 11/21/16 06:24 11/21/16 06:24 11/21/16 06:24 11/21/16 06:24 General appearance: Present: cooperative, A&O X 2, mild distress, obese, answers questions appropriately - Respiratory Respiratory exam: Present: decreased breath sounds (At both bases), CTAB. Absent: accessory muscle use, rales, rhonchi, wheezes Additional comments: Basal crackles bilaterally - Cardiovascular Cardiovascular exam: Present: RRR, +S1, +S2. Absent: diastolic murmur, gallop, rubs, systolic murmur - GI/Abdominal GI/Abdominal exam: Present: normal bowel sounds, soft, no peritoneal signs. Absent: distended, tenderness - Extremities Exam Extremities exam: Present: pedal edema, warm, radial pulses palpable and symetrical. Absent: calf tenderness, cyanotic - Neurological Exam Neurological exam: Present: alert, no focal deficits. Absent: facial droop, speech deficit - Skin Skin exam: Present: dry, intact Internal Medicine: Result - Labs CBC & Chem 7: 11/21/16 04:48 11/21/16 04:48 Labs: Short CBC 11/21/16 Range/Units 04:48 WBC 13.3 H (4.3-11.1) K/mcL Hgb 8.3 L (11.5-15.4) g/dL Hct 27.0 L (35.3-44.9) % Plt Count 355 (140-400) K/mcL Neutrophils # 11.7 H (1.6-8.9) K/mcL BMP 11/21/16 04:48 Sodium 131 L Potassium 4.4 Chloride 91 L Carbon Dioxide 27 BUN 41 H D Creatinine 3.14 H Glucose 100 H Calcium 8.7 - ABG Interpretation ABG results: PT/INR, D-dimer PT 15.2 Seconds (9.4-12.1) H 11/19/16 10:52 - Impressions Impressions Guidance Ultrasound 11/20/16 00:00 IMPRESSION: Successful right femoral temporary hemodialysis catheter placement using ultrasound guidance. D/ / 11/21/2016 08:42:07 Annika Spencer MD / [email or web address] Interpreting Provider: Aninka Spencer MD K[facility] X-Ray 11/20/16 17:39 IMPRESSION: Right femoral dialysis catheter as detailed. D/ / Presley Shannon MD / Presley Shannon MD Interpreting Provider: Presley Shannon MD Consult Discharge Plan - Plan Referrals: Henrry Mccullough MD [Primary Care Provider] - (Web requested 11/14/16) - Attending Attestation This document has been at least partially created by [employer] recognition technology by Dr. Rajan. Errors in grammar, wording or other phrases may exist. If errors are found after the documentation is signed, they will be addressed individually in the addendum section of this document when appropriate.
[2016-11-21 11:46] LABS: Hepatitis B Surface Antibody 0.64 mIU/mL
[2016-11-21] MEDS ORDERED: 0.9 % Sodium Chloride 2,000 ML ONE (12:52)
[2016-11-21] MEDS ORDERED: Benzonatate 100 MG CAPSULE PO PRN (14:48)
--- NOTE | 2016-11-21 16:02 | Pulmonology Progress Note ---
Date of Encounter: 11/21/16 Time of Encounter: 15:45 Assessment and Plan (1) Pleural effusion Current Visit: No Status: Chronic Most likely transudative effusions related to CHF. Recommend against thoracentesis and in favor of continued fluid removal via HD. (2) Pulmonary hypertension due to left heart disease Current Visit: No Status: Chronic Based on TTE with elevated RVSP. Most likely WHO group II from left ventricular dysfunction. Recommend management of CHF and can re-evaluate for other causes following management of acute heart failure and volume overload. (3) Lung abnormality Current Visit: Yes Status: Acute Findings on CT Chest could be consistent with pulmonary edema. Would favor this over pneumonia given her clinical appearance. Cannot fully assess lung parenchyma and could consider follow imaging after management acute illness. Subjective Principal diagnosis: Pulmonary Edema Interval history: Had HD today. Reports fatigue and nausea without vomiting. No change in respiratory symptoms. Objective PUL Vital signs: Last Vital Signs Temp 98.5 F 11/21/16 15:05 Pulse 76 11/21/16 15:05 Resp 20 11/21/16 15:05 BP 107/62 11/21/16 15:05 Pulse Ox 95 11/21/16 15:05 General appearance: other (fatigured appearing) Eyes: nonicteric Effort: normal Auscultation: bilateral: clear (Anterior lung sounds), diminished breath sounds Cardiovascular: regular rate and rhythm, murmur noted Gastrointestinal: normoactive bowel sounds (slight discomfort with palpation), soft Extremities: no cyanosis, edema (BL LE edema) Musculoskeletal: no deformities Gait: other (lying in bed) Results - Laboratory Findings CBC and BMP: 11/21/16 04:48 11/21/16 04:48 PT/INR, D-dimer PT 15.2 Seconds (9.4-12.1) H 11/19/16 10:52 Abnormal lab findings: Abnormal lab results WBC 13.3 K/mcL (4.3-11.1) H 11/21/16 04:48 RBC 3.42 M/mcL (3.82-4.97) L 11/21/16 04:48 Hgb 8.3 g/dL (11.5-15.4) L 11/21/16 04:48 Hct 27.0 % (35.3-44.9) L 11/21/16 04:48 MCV 78.9 fL (83.0-100.0) L 11/21/16 04:48 MCH 24.3 pg (28.0-33.3) L 11/21/16 04:48 MCHC 30.7 g/dL (31.6-35.5) L 11/21/16 04:48 RDW 16.0 % (11.5-14.5) H 11/21/16 04:48 MPV 8.7 fL (9.4-12.4) L 11/21/16 04:48 Neutrophils # 11.7 K/mcL (1.6-8.9) H 11/21/16 04:48 Lymphocytes # 0.4 K/mcL (0.6-4.6) L 11/21/16 04:48 PT 15.2 Seconds (9.4-12.1) H 11/19/16 10:52 Sodium 131 mEq/L (136-145) L 11/21/16 04:48 Chloride 91 mEq/L (98-109) L 11/21/16 04:48 BUN 41 mg/dL (7-20) H D 11/21/16 04:48 Creatinine 3.14 mg/dL (0.57-1.11) H 11/21/16 04:48 Est GFR ( Amer) 18 (> 60) L 11/21/16 04:48 Est GFR (Non-Af Amer) 15 (> 60) L 11/21/16 04:48 Glucose 100 mg/dL (70-99) H 11/21/16 04:48 POC Glucose 166 (58-89) H 11/20/16 21:48 B-Natriuretic Peptide 536 pg/mL (0-100) H 11/12/16 08:42 Albumin 2.6 g/dL (3.5-5.0) L 11/20/16 04:26 Globulin 3.8 g/dL (2.4-3.5) H 11/20/16 04:26 Albumin/Globulin Ratio 0.7 (1.1-2.2) L 11/20/16 04:26 Urine Protein 30 mg/dL (Neg-Trace) H 11/12/16 07:58 Urine Blood Small (Negative) H 11/12/16 07:58 Ur Leukocyte Esterase Small (Negative) H 11/12/16 07:58 Urine Microscopic RBC 5-15 per hpf (0-3) H 11/12/16 07:58 Urine Microscopic WBC 5-15 per hpf (0-3) H 11/12/16 07:58 Ur Squamous Epith Cells Many per lpf (None-Few) H 11/12/16 07:58 Ur Culture Indicated? YES (NO) A 11/12/16 07:58 - Clinical Findings Intake & Output: Intake & Output 11/21/16 11/21/16 11/21/16 07:59 15:59 23:59 Intake Total 840 / 840 Output Total 250 / 250 610 / 610 Balance -250 / -250 230 / 230 Weight 98.1 kg Consult Discharge Plan - Plan Referrals: Henrry Mccullough MD [Primary Care Provider] - (Web requested 11/14/16)
[2016-11-21] MEDS: Insulin DETEMIR 100 UNIT/ML X5UNITS SQ SCH (22:22)
[2016-11-22] MEDS: Ipratropium/Albuterol Neb 3 ML IH SCH ×4 (03:49→21:54)
[2016-11-22 05:25] LABS: Basophils % 0.2 %; Eosinophils # 0.1 K/mcL (0.0-0.6); Eosinophils % 0.8 %; Hematocrit 26.7 % (35.3-44.9); Immature Granulocytes % 1.2 % (0-4); Lymphocytes # 0.6 K/mcL (0.6-4.6); Lymphocytes % 4.7 %; Mean Corpuscular Volume 80.2 fL (83.0-100.0); Mean Platelet Volume 8.7 fL (9.4-12.4); Monocytes # 1.2 K/mcL (0.0-1.3); Monocytes % 10.2 %; Neutrophils # 9.8 K/mcL (1.6-8.9); Platelet Count 321 K/mcL (140-400); Red Blood Count 3.33 M/mcL (3.82-4.97); Segmented Neutrophils % 82.9 %
[2016-11-22 05:40] LABS: Albumin 2.5 g/dL (3.5-5.0); Albumin/Globulin Ratio 0.7 (1.1-2.2); Bilirubin,Total 0.5 mg/dL (0.2-1.2); Calcium 8.9 mg/dL (8.6-10.8); Globulin 3.7 g/dL (2.4-3.5); Phosphorous 3.3 mg/dL (2.3-4.7); Potassium 4.1 mEq/L (3.5-4.5); Total Protein 6.2 g/dL (6.0-8.3)
[2016-11-22] MEDS: Sucralfate 1 GM TABLET PO SCH ×2 (06:39→16:31)
--- NOTE | 2016-11-22 08:21 | Nephrology Progress Note ---
Date of Encounter: 11/22/16 Time of Encounter: 08:19 - Assessment and Plan (1) CKD (chronic kidney disease), stage III Current Visit: Yes Status: Chronic Overall the patient appears to be improved following 2 days of dialysis. Urine output remains low however I am going to not dialyze her today. She will be reevaluated again tomorrow for possible dialysis. If she continues to need dialysis she will require placement of a tunneled dialysis catheter. In the meantime as long as she has a femoral catheter in place she may not sit up or get out of bed. (2) Type 2 diabetes mellitus with diabetic chronic kidney disease Current Visit: Yes Status: Acute Qualifiers: Diabetes mellitus technician terminal and repeater insulin use: without fdc use Chronic kidney disease stage: stage 3 (moderate) Qualified Code(s): E11.22 - Type 2 diabetes mellitus with diabetic chronic kidney disease; N18.3 - Chronic kidney disease, stage 3 (moderate) (3) Benign hypertension with chronic kidney disease, stage III Current Visit: Yes Status: Acute (4) Acute on chronic diastolic CHF (congestive heart failure) Current Visit: Yes Status: Acute Subjective Principal diagnosis: Pulmonary Edema Interval history: Patient voices no complaints. She says that her breathing is improved. She has had dialysis the past 2 days. She has less lower extremity swelling on exam. Overall her clinical status seems to be improved. Urine output is recorded as 260 mL. Objective - Vital Signs Vital signs: Vital Signs Temp Pulse Resp BP Pulse Ox 11/22/16 07:31 98.0 F 75 21 144/71 89 11/22/16 05:05 97.4 F L 69 20 121/53 94 11/22/16 03:49 18 94 11/22/16 00:12 98.6 F 76 20 118/67 93 11/21/16 21:37 18 95 11/21/16 20:56 98.5 F 63 20 130/61 93 11/21/16 15:31 18 94 11/21/16 15:05 98.5 F 76 20 107/62 95 11/21/16 12:58 97.3 F L 22 127/73 11/21/16 12:30 121/55 11/21/16 12:15 106/64 11/21/16 12:00 116/62 11/21/16 11:45 119/56 11/21/16 11:30 114/60 11/21/16 11:15 144/58 11/21/16 11:00 122/73 11/21/16 10:45 137/68 11/21/16 10:30 131/89 11/21/16 10:15 120/65 11/21/16 10:00 97.3 F L 22 121/73 Intake and Output 11/21/16 11/22/16 11/22/16 23:59 07:59 15:59 Other: Stool Size Smear # Bowel Movements 1 Blood Glucose* 189 185 - General Appearance Exam: Patient is alert. She is in no acute distress. Lungs demonstrate bibasilar rales. Heart regular rhythm. Abdomen is benign. She has less lower extremity swelling. There is a temporary dialysis catheter in the right femoral vein. - Lab 11/22/16 05:11 11/22/16 05:11 Most recent lab results Calcium 8.9 mg/dL (8.6-10.8) 11/22/16 05:11 Phosphorus 3.3 mg/dL (2.3-4.7) 11/22/16 05:11 Consult Discharge Plan - Plan Referrals: Henrry Mccullough MD [Primary Care Provider] - (Web requested 11/14/16)
[2016-11-22] MEDS: Gabapentin 100 MG CAPSULE PO SCH ×2 (09:43→21:19)
[2016-11-22] MEDS: APIXABAN 5 MG TABLET PO SCH ×2 (09:43→21:19)
[2016-11-22] MEDS: Folic Acid 1 MG TABLET PO SCH (09:43)
[2016-11-22] MEDS: Aspirin 81 MG TAB.CHEW PO SCH (09:43)
[2016-11-22] MEDS: Lactulose Oral Soln 20 GM/30 ML UDC PO SCH ×4 (09:44→21:19)
[2016-11-22] MEDS: Insulin LISPRO 300 UNITS/3 ML VIAL SQ SCH ×4 (09:44→20:58)
[2016-11-22] MEDS: Bumetanide 1 MG/4 ML VIAL IVP SCH ×2 (09:44→16:31)
--- NOTE | 2016-11-22 11:24 | Pulmonology Progress Note ---
Date of Encounter: 11/22/16 Time of Encounter: 10:55 Assessment and Plan (1) Pleural effusion Current Visit: No Status: Chronic Most likely transudative effusions due to heart failure and clinically improving with HD. No indication for repeat thoracentesis at this time. Pulmonary will now sign off. Please reconsult for further questions. (2) Pulmonary hypertension due to left heart disease Current Visit: No Status: Chronic Based on TTE with elevated RVSP. Most likely WHO group II from left ventricular dysfunction. Recommend management of CHF and can re-evaluate for other causes following management of acute heart failure and volume overload. (3) Lung abnormality Current Visit: Yes Status: Acute Findings on CT Chest could be consistent with pulmonary edema. Would favor this over pneumonia given her clinical appearance. Cannot fully assess lung parenchyma and could consider follow imaging after management acute illness. Subjective Principal diagnosis: Pulmonary Edema Interval history: Underwent HD yesterday. Reports slight improvement in breathing but still feels weak. No acute events overnight Objective PUL Vital signs: Last Vital Signs Temp 98.0 F 11/22/16 07:31 Pulse 75 11/22/16 07:31 Resp 21 11/22/16 07:31 BP 144/71 11/22/16 07:31 Pulse Ox 89 11/22/16 07:31 General appearance: other (weak appearing) Eyes: nonicteric Effort: normal Auscultation: bilateral: clear, diminished breath sounds Cardiovascular: regular rate and rhythm Extremities: no cyanosis, no clubbing normal mental status mood appropriate, affect normal Results - Laboratory Findings CBC and BMP: 11/22/16 05:11 11/22/16 05:11 PT/INR, D-dimer PT 15.2 Seconds (9.4-12.1) H 11/19/16 10:52 Abnormal lab findings: Abnormal lab results WBC 11.9 K/mcL (4.3-11.1) H 11/22/16 05:11 RBC 3.33 M/mcL (3.82-4.97) L 11/22/16 05:11 Hgb 8.0 g/dL (11.5-15.4) L 11/22/16 05:11 Hct 26.7 % (35.3-44.9) L 11/22/16 05:11 MCV 80.2 fL (83.0-100.0) L 11/22/16 05:11 MCH 24.0 pg (28.0-33.3) L 11/22/16 05:11 MCHC 30.0 g/dL (31.6-35.5) L 11/22/16 05:11 RDW 16.0 % (11.5-14.5) H 11/22/16 05:11 MPV 8.7 fL (9.4-12.4) L 11/22/16 05:11 Neutrophils # 9.8 K/mcL (1.6-8.9) H 11/22/16 05:11 PT 15.2 Seconds (9.4-12.1) H 11/19/16 10:52 Sodium 130 mEq/L (136-145) L 11/22/16 05:11 Chloride 91 mEq/L (98-109) L 11/22/16 05:11 BUN 29 mg/dL (7-20) H D 11/22/16 05:11 Creatinine 2.96 mg/dL (0.57-1.11) H 11/22/16 05:11 Est GFR ( Amer) 19 (> 60) L 11/22/16 05:11 Est GFR (Non-Af Amer) 16 (> 60) L 11/22/16 05:11 Glucose 150 mg/dL (70-99) H 11/22/16 05:11 POC Glucose 185 (58-89) H 11/22/16 07:16 Calculated Osmolality 279 (280-300) L 11/22/16 05:11 B-Natriuretic Peptide 536 pg/mL (0-100) H 11/12/16 08:42 Albumin 2.5 g/dL (3.5-5.0) L 11/22/16 05:11 Globulin 3.7 g/dL (2.4-3.5) H 11/22/16 05:11 Albumin/Globulin Ratio 0.7 (1.1-2.2) L 11/22/16 05:11 Urine Protein 30 mg/dL (Neg-Trace) H 11/12/16 07:58 Urine Blood Small (Negative) H 11/12/16 07:58 Ur Leukocyte Esterase Small (Negative) H 11/12/16 07:58 Urine Microscopic RBC 5-15 per hpf (0-3) H 11/12/16 07:58 Urine Microscopic WBC 5-15 per hpf (0-3) H 11/12/16 07:58 Ur Squamous Epith Cells Many per lpf (None-Few) H 11/12/16 07:58 Ur Culture Indicated? YES (NO) A 11/12/16 07:58 - Clinical Findings Intake & Output: Intake & Output 11/21/16 11/22/16 11/22/16 23:59 07:59 15:59 Intake Total 120 / 120 Balance 120 / 120 Consult Discharge Plan - Plan Referrals: Henrry Mccullough MD [Primary Care Provider] - (Web requested 11/14/16)
[2016-11-22] MEDS: *HR* OxyCODONE Immed Rel 5 MG TABLET PO PRN ×2 (12:02→18:00)
--- NOTE | 2016-11-22 13:20 | Internal Med Progress Note ---
Date of Encounter: 11/17/16 Time of Encounter: 12:00 - Assessment and plan (1) Acute CHF Current Visit: Yes Status: Acute Assessment and plan: continues to have persistent leg swelling, crackles and hypoxia. Lasix has been held due to worsening renal function for the last 2 days. Will give one dose of IV Lasix and monitor urine output closely. continue beta-lesvia. High risk for complications; Qualifiers: Congestive heart failure type: diastolic Qualified Code(s): I50.31 - Acute diastolic (congestive) heart failure (2) CKD (chronic kidney disease), stage III Current Visit: Yes Status: Chronic Assessment and plan: worsening serum creatinine; Nephrology on board; (3) Chronic anemia Current Visit: Yes Status: Chronic (4) Obesity (BMI 30-39.9) Current Visit: Yes Status: Chronic (5) DM (diabetes mellitus), type 2 Current Visit: Yes Status: Chronic 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 mellitus ferry terminal agent insulin use: with ferry terminal agent use Chronic kidney disease stage: stage 3 (moderate) Qualified Code(s): E11.22 - Type 2 diabetes mellitus with diabetic chronic kidney disease; N18.3 - Chronic kidney disease, stage 3 ( moderate); Z79.4 - ocean transportation intermediary (current) use of insulin (6) Cirrhosis Current Visit: Yes Status: Chronic Qualifiers: Hepatic cirrhosis type: unspecified hepatic cirrhosis Ascites presence: without ascites Qualified Code(s): K74.60 - Unspecified cirrhosis of liver (7) Atrial fibrillation Current Visit: Yes Status: Chronic Qualifiers: Atrial fibrillation type: chronic Qualified Code(s): I48.2 - Chronic atrial fibrillation (8) COPD (chronic obstructive pulmonary disease) Current Visit: Yes Status: Chronic Qualifiers: COPD type: unspecified COPD Qualified Code(s): J44.9 - Chronic obstructive pulmonary disease, unspecified (9) LITO on CPAP Current Visit: Yes Status: Chronic - Subjective Interval history: No significant change in clinical status. Does not report chest pain but continues to have shortness of breath and leg swelling. Continues to require high flow supplemental oxygen. - Constitutional Vitals: Temp Pulse Resp BP Pulse Ox 98.3 F 76 20 136/78 90 11/22/16 11:48 11/22/16 11:48 11/22/16 11:48 11/22/16 11:48 11/22/16 11:48 General appearance: Present: cooperative, A&O X 2, obese, answers questions appropriately - Respiratory Respiratory exam: Present: rales (bibasal fine crepts+). Absent: accessory muscle use, rhonchi, wheezes - Cardiovascular Cardiovascular exam: Present: irregular rhythm, +S1, +S2. Absent: diastolic murmur, gallop, rubs, systolic murmur - GI/Abdominal GI/Abdominal exam: Present: normal bowel sounds, soft (obese), no peritoneal signs. Absent: distended, tenderness - Extremities Exam Extremities exam: Present: full ROM, pedal edema (2+ pitting pedal edema B/L), warm, radial pulses palpable and symetrical. Absent: calf tenderness, cyanotic Internal Medicine: Result - Labs CBC & Chem 7: 11/22/16 05:11 11/22/16 05:11 Labs: Short CBC 11/22/16 Range/Units 05:11 WBC 11.9 H (4.3-11.1) K/mcL Hgb 8.0 L (11.5-15.4) g/dL Hct 26.7 L (35.3-44.9) % Plt Count 321 (140-400) K/mcL Neutrophils # 9.8 H (1.6-8.9) K/mcL BMP 11/22/16 05:11 Sodium 130 L Potassium 4.1 Chloride 91 L Carbon Dioxide 28 BUN 29 H D Creatinine 2.96 H Glucose 150 H Calcium 8.9 Liver Function 11/22/16 Range/Units 05:11 Total Bilirubin 0.5 (0.2-1.2) mg/dL AST 17 (5-34) Units/L ALT 15 (0-55) Units/L Alkaline Phosphatase 106 (38-126) Units/L Albumin 2.5 L (3.5-5.0) g/dL - ABG Interpretation ABG results: PT/INR, D-dimer PT 15.2 Seconds (9.4-12.1) H 11/19/16 10:52 - Impressions Impressions Videofluoroscopic Swallow 11/22/16 08:30 IMPRESSION: Deep laryngeal penetration with thin barium. No penetration or aspiration with the other barium consistencies. Please see separate speech pathology report for full discussion of findings and recommendations. D/ / Cameron John MD / Cameron John MD Interpreting Provider: Cameron John MD Consult Discharge Plan - Plan Referrals: Henrry Mccullough MD [Primary Care Provider] - (Web requested 11/14/16)
--- NOTE | 2016-11-22 14:34 | Internal Med Progress Note ---
Date of Encounter: 11/22/16 Time of Encounter: 09:50 - Assessment and plan (1) Acute CHF Current Visit: Yes Status: Acute Assessment and plan: Improving fluid volume status with hemodialysis. Nephrology managing. Moderate risk for complications. Qualifiers: Congestive heart failure type: diastolic Qualified Code(s): I50.31 - Acute diastolic (congestive) heart failure (2) CKD (chronic kidney disease), stage III Current Visit: Yes Status: Chronic Assessment and plan: Progressive chronic kidney disease stage III. Patient remains oliguric. Nephrology plans to hold off on dialysis today and reassess. If patient's urine output does not improve, she may need tunneled dialysis catheter. (3) Atrial fibrillation Current Visit: No Status: Chronic Assessment and plan: Rate controlled. On anticoagulation with Eliquis Qualifiers: Atrial fibrillation type: chronic Qualified Code(s): I48.2 - Chronic atrial fibrillation (4) Cirrhosis Current Visit: No Status: Chronic Qualifiers: Hepatic cirrhosis type: other cirrhosis Qualified Code(s): K74.69 - Other cirrhosis of liver (5) COPD (chronic obstructive pulmonary disease) Current Visit: Yes Status: Chronic Assessment and plan: On bronchodilator nebs. Will change scheduled to when necessary. Qualifiers: COPD type: unspecified COPD Qualified Code(s): J44.9 - Chronic obstructive pulmonary disease, unspecified (6) DM (diabetes mellitus), type 2 Current Visit: Yes Status: Chronic Assessment and plan: Blood sugars are slightly elevated today. Will increase sliding scale coverage. 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 mellitus fdc insulin use: with fdc use Chronic kidney disease stage: stage 3 (moderate) Qualified Code(s): E11.22 - Type 2 diabetes mellitus with diabetic chronic kidney disease; N18.3 - Chronic kidney disease, stage 3 ( moderate); Z79.4 - intermediate teacher (current) use of insulin (7) Obesity (BMI 30-39.9) Current Visit: Yes Status: Chronic (8) LITO on CPAP Current Visit: Yes Status: Chronic - Subjective Interval history: Patient is awake and alert. No new complaints at this time. Denies any shortness of breath. No nausea or vomiting. - Constitutional Vitals: Temp Pulse Resp BP Pulse Ox 98.3 F 76 20 136/78 90 11/22/16 11:48 11/22/16 11:48 11/22/16 11:48 11/22/16 11:48 11/22/16 11:48 General appearance: Present: cooperative, A&O X 2, obese, answers questions appropriately - Respiratory Respiratory exam: Absent: accessory muscle use, rales, rhonchi, wheezes Additional comments: Basal crackles present - GI/Abdominal GI/Abdominal exam: Present: normal bowel sounds, soft, no peritoneal signs. Absent: distended, tenderness - Extremities Exam Extremities exam: Present: pedal edema (Improving), warm, radial pulses palpable and symetrical. Absent: calf tenderness, cyanotic - Neurological Exam Neurological exam: Present: oriented X3, no focal deficits. Absent: pronater drift, facial droop, speech deficit - Skin Skin exam: Present: dry, intact Internal Medicine: Result - Labs CBC & Chem 7: 11/22/16 05:11 11/22/16 05:11 Labs: Short CBC 11/22/16 Range/Units 05:11 WBC 11.9 H (4.3-11.1) K/mcL Hgb 8.0 L (11.5-15.4) g/dL Hct 26.7 L (35.3-44.9) % Plt Count 321 (140-400) K/mcL Neutrophils # 9.8 H (1.6-8.9) K/mcL BMP 11/22/16 05:11 Sodium 130 L Potassium 4.1 Chloride 91 L Carbon Dioxide 28 BUN 29 H D Creatinine 2.96 H Glucose 150 H Calcium 8.9 Liver Function 11/22/16 Range/Units 05:11 Total Bilirubin 0.5 (0.2-1.2) mg/dL AST 17 (5-34) Units/L ALT 15 (0-55) Units/L Alkaline Phosphatase 106 (38-126) Units/L Albumin 2.5 L (3.5-5.0) g/dL - ABG Interpretation ABG results: PT/INR, D-dimer PT 15.2 Seconds (9.4-12.1) H 11/19/16 10:52 - Impressions Impressions Videofluoroscopic Swallow 11/22/16 08:30 IMPRESSION: Deep laryngeal penetration with thin barium. No penetration or aspiration with the other barium consistencies. Please see separate speech pathology report for full discussion of findings and recommendations. D/ / Cameron John MD / Cameron John MD Interpreting Provider: Cameron John MD Consult Discharge Plan - Plan Referrals: Henrry Mccullough MD [Primary Care Provider] - (Web requested 11/14/16) - Attending Attestation This document has been at least partially created by SET recognition technology by Dr. Rajan. Errors in grammar, wording or other phrases may exist. If errors are found after the documentation is signed, they will be addressed individually in the addendum section of this document when appropriate.
[2016-11-22] MEDS: Insulin DETEMIR 100 UNIT/ML X5UNITS SQ SCH (21:20)
[2016-11-23 04:44] LABS: Basophils % 0.3 %; Eosinophils # 0.1 K/mcL (0.0-0.6); Eosinophils % 1.2 %; Hematocrit 26.7 % (35.3-44.9); Hemoglobin 7.9 g/dL (11.5-15.4); Immature Granulocytes % 1.9 % (0-4); Lymphocytes # 0.5 K/mcL (0.6-4.6); Lymphocytes % 3.9 %; Mean Corpuscular HGB Conc 29.6 g/dL (31.6-35.5); Mean Corpuscular Volume 81.2 fL (83.0-100.0); Mean Platelet Volume 8.8 fL (9.4-12.4); Monocytes # 1.1 K/mcL (0.0-1.3); Monocytes % 9.6 %; Neutrophils # 9.6 K/mcL (1.6-8.9); Platelet Count 304 K/mcL (140-400); Red Blood Count 3.29 M/mcL (3.82-4.97); Red Cell Distribution Width 16.3 % (11.5-14.5); Segmented Neutrophils % 83.1 %
[2016-11-23] MEDS: Ipratropium/Albuterol Neb 3 ML IH SCH ×2 (04:47→10:25)
[2016-11-23] MEDS: *HR* OxyCODONE Immed Rel 5 MG TABLET PO PRN ×2 (04:54→18:59)
[2016-11-23 04:59] LABS: Albumin 2.4 g/dL (3.5-5.0); Albumin/Globulin Ratio 0.6 (1.1-2.2); Bilirubin,Total 0.5 mg/dL (0.2-1.2); Calcium 9.1 mg/dL (8.6-10.8); Globulin 3.7 g/dL (2.4-3.5); Potassium 4.2 mEq/L (3.5-4.5); Total Protein 6.1 g/dL (6.0-8.3)
[2016-11-23] MEDS: Ondansetron ODT 4 MG TAB.RAPDIS SL PRN (08:37)
[2016-11-23] MEDS: Sucralfate 1 GM TABLET PO SCH ×2 (08:43→17:00)
[2016-11-23] MEDS: Lactulose Oral Soln 20 GM/30 ML UDC PO SCH ×4 (08:43→21:59)
[2016-11-23] MEDS: Aspirin 81 MG TAB.CHEW PO SCH (08:43)
[2016-11-23] MEDS: Folic Acid 1 MG TABLET PO SCH (08:44)
[2016-11-23] MEDS: APIXABAN 5 MG TABLET PO SCH (08:44)
[2016-11-23] MEDS: Gabapentin 100 MG CAPSULE PO SCH ×2 (08:44→21:58)
[2016-11-23] MEDS: Insulin LISPRO 300 UNITS/3 ML VIAL SQ SCH ×4 (08:46→21:59)
--- NOTE | 2016-11-23 09:50 | Nephrology Progress Note ---
Date of Encounter: 11/23/16 Time of Encounter: 09:48 - Assessment and Plan (1) CKD (chronic kidney disease), stage III Current Visit: Yes Status: Chronic The patient's respiratory status has improved with initiation of dialysis several days ago. She still appears to be dialysis dependent. When requested interventional radiology remove her temporary femoral dialysis catheter and place a tunnel dialysis catheter because she may need dialysis more long-term. She will undergo dialysis later today. (2) Type 2 diabetes mellitus with diabetic chronic kidney disease Current Visit: Yes Status: Acute Qualifiers: Diabetes mellitus group home insulin use: without group home use Chronic kidney disease stage: stage 3 (moderate) Qualified Code(s): E11.22 - Type 2 diabetes mellitus with diabetic chronic kidney disease; N18.3 - Chronic kidney disease, stage 3 (moderate) (3) Benign hypertension with chronic kidney disease, stage III Current Visit: Yes Status: Acute (4) Acute on chronic diastolic CHF (congestive heart failure) Current Visit: Yes Status: Acute Subjective Principal diagnosis: Pulmonary Edema Interval history: The patient is complaining of some sacral pain and also some nausea. She says her breathing is been doing fairly well. Urine output is only recorded as 200 mL's. She did not receive dialysis yesterday. Her azotemia is worse today. Objective - Vital Signs Vital signs: Vital Signs Temp Pulse Resp BP Pulse Ox 11/23/16 06:53 97.6 F 71 20 113/56 94 11/23/16 04:47 18 93 11/23/16 04:44 97.5 F L 72 18 128/67 96 11/22/16 22:43 98.1 F 75 17 112/56 95 11/22/16 21:54 18 91 11/22/16 19:51 97.5 F L 75 17 103/56 93 11/22/16 16:20 98.5 F 82 14 128/72 91 11/22/16 11:48 98.3 F 76 20 136/78 90 11/22/16 11:00 24 94 Intake and Output 11/22/16 11/23/16 11/23/16 23:59 07:59 15:59 Intake Total 120 / 120 0 / 0 Output Total 200 / 200 Balance -80 / -80 0 / 0 Intake: Oral 120 / 120 0 / 0 Output: Urine 0 / 0 Catheter 200 / 200 Other: Meal Breakfast Percent of Meal Consumed 0% Stool Size Smear Smear Stool Color Brown Brown Yellow Yellow # Bowel Movements 1 # Bowel Movement Diapers 1 Weight 98.2 kg Blood Glucose* 197 207 Patient Weight 11/23/16 23:59 Weight 98.2 kg - General Appearance Exam: Patient is alert and oriented. She is in no acute distress. Lungs demonstrate bibasilar rales. Heart regular rate and rhythm. Abdomen is benign. Her lower extremity swelling continues to improve. - Lab 11/23/16 04:27 11/23/16 04:27 Most recent lab results Calcium 9.1 mg/dL (8.6-10.8) 11/23/16 04:27 Phosphorus 3.3 mg/dL (2.3-4.7) 11/22/16 05:11 Consult Discharge Plan - Plan Referrals: Henrry Mccullough MD [Primary Care Provider] - (Web requested 11/14/16)
[2016-11-23] MEDS ORDERED: 0.9 % Sodium Chloride 250 ML IVC PRN (09:51)
[2016-11-23] MEDS ORDERED: Darbepoetin 100 MCG/0.5 ML SYRINGE SQ SCH (10:00)
[2016-11-23 10:30] LABS: % Iron Saturation 10 % (15-50); Iron 26 mcg/dL (50-170); Transferrin 181 mg/dL (180-382)
[2016-11-23 10:52] LABS: Ferritin 128 ng/ml (5-204)
[2016-11-23] MEDS: Bumetanide 1 MG/4 ML VIAL IVP SCH ×2 (12:16→17:00)
--- NOTE | 2016-11-23 15:03 | Internal Med Progress Note ---
Date of Encounter: 11/23/16 Time of Encounter: 08:50 - Assessment and plan (1) Acute on chronic renal failure Current Visit: Yes Status: Acute Assessment and plan: Renal function not improving. Poor urine output. Nephrology recommends placement of tunneled dialysis catheter. We will continue dialysis per nephrology recommendations. Moderate risk for complications. (2) CKD (chronic kidney disease), stage III Current Visit: Yes Status: Chronic Assessment and plan: Progressive worsening. (3) Acute CHF Current Visit: Yes Status: Resolved Assessment and plan: This is significantly improved. Pedal edema has mostly resolved. Continue fluid management with hemodialysis. Qualifiers: Congestive heart failure type: diastolic Qualified Code(s): I50.31 - Acute diastolic (congestive) heart failure (4) Atrial fibrillation Current Visit: No Status: Chronic Assessment and plan: Rate controlled Qualifiers: Atrial fibrillation type: chronic Qualified Code(s): I48.2 - Chronic atrial fibrillation (5) Cirrhosis Current Visit: No Status: Chronic Qualifiers: Hepatic cirrhosis type: other cirrhosis Qualified Code(s): K74.69 - Other cirrhosis of liver (6) COPD (chronic obstructive pulmonary disease) Current Visit: Yes Status: Chronic Assessment and plan: Bronchodilator nebs as needed Qualifiers: COPD type: unspecified COPD Qualified Code(s): J44.9 - Chronic obstructive pulmonary disease, unspecified (7) DM (diabetes mellitus), type 2 Current Visit: Yes Status: Chronic Assessment and plan: Blood sugars are improving. We will increase Levemir dosage to 10 units. 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 mellitus half-way insulin use: with half-way use Chronic kidney disease stage: stage 3 (moderate) Qualified Code(s): E11.22 - Type 2 diabetes mellitus with diabetic chronic kidney disease; N18.3 - Chronic kidney disease, stage 3 ( moderate); Z79.4 - emt intermediate (current) use of insulin (8) Obesity (BMI 30-39.9) Current Visit: Yes Status: Chronic (9) LITO on CPAP Current Visit: Yes Status: Chronic - Subjective Interval history: Patient complaining of some heartburn and nausea. No vomiting. No other acute issues reported overnight. No new complaints or shortness of breath or chest pain. There has been some bleeding around her temporary dialysis catheter site in right femoral vein. - Constitutional Vitals: Temp Pulse Resp BP Pulse Ox 97.9 F 71 22 108/58 91 11/23/16 13:05 11/23/16 10:45 11/23/16 13:05 11/23/16 14:50 11/23/16 10:45 General appearance: Present: cooperative, A&O X 3, no acute distress, answers questions appropriately - Respiratory Respiratory exam: Present: CTAB. Absent: accessory muscle use, rales, rhonchi, wheezes - Cardiovascular Cardiovascular exam: Present: RRR, +S1, +S2. Absent: diastolic murmur, gallop, rubs, systolic murmur - GI/Abdominal GI/Abdominal exam: Present: normal bowel sounds, soft, no peritoneal signs. Absent: distended, tenderness - Extremities Exam Extremities exam: Present: warm, radial pulses palpable and symetrical. Absent : calf tenderness, cyanotic, pedal edema - Neurological Exam Neurological exam: Present: alert, no focal deficits. Absent: facial droop, speech deficit - Skin Skin exam: Present: dry, intact Internal Medicine: Result - Labs CBC & Chem 7: 11/23/16 04:27 11/23/16 04:27 Labs: Short CBC 11/23/16 Range/Units 04:27 WBC 11.5 H (4.3-11.1) K/mcL Hgb 7.9 L (11.5-15.4) g/dL Hct 26.7 L (35.3-44.9) % Plt Count 304 (140-400) K/mcL Neutrophils # 9.6 H (1.6-8.9) K/mcL BMP 11/23/16 04:27 Sodium 132 L Potassium 4.2 Chloride 93 L Carbon Dioxide 31 H BUN 34 H Creatinine 3.28 H Glucose 194 H Calcium 9.1 Liver Function 11/23/16 Range/Units 04:27 Total Bilirubin 0.5 (0.2-1.2) mg/dL AST 14 (5-34) Units/L ALT 13 (0-55) Units/L Alkaline Phosphatase 102 (38-126) Units/L Albumin 2.4 L (3.5-5.0) g/dL - ABG Interpretation ABG results: PT/INR, D-dimer PT 15.2 Seconds (9.4-12.1) H 11/19/16 10:52 - Impressions Impressions Chest X-Ray 11/19/16 12:40 IMPRESSION: Stable bilateral pulmonary opacities. Bilateral pleural effusions. There has been a decrease in the left pleural effusion when compared to the previous exam. No pneumothorax. D/ / 11/19/2016 13:57:54 Daniella Monge MD / Fatoumata Collier Interpreting Provider: Daniella Monge MD Guidance Ultrasound 11/20/16 00:00 IMPRESSION: Successful right femoral temporary hemodialysis catheter placement using ultrasound guidance. D/ / 11/21/2016 08:42:07 Annika Spencer MD / renae Interpreting Provider: Annika Spencer MD Pelvis CT 11/22/16 14:47 IMPRESSION: Right femoral dialysis catheter is visualized in good position. No acute related findings D/ / Presley Shannon MD / Presley Shannon MD Interpreting Provider: Presley Shannon MD Consult Discharge Plan - Plan Referrals: Henrry Mccullough MD [Primary Care Provider] - (Web requested 11/14/16) - Attending Attestation This document has been at least partially created by [employer] voice recognition technology by Dr. Rajan. Errors in grammar, wording or other phrases may exist. If errors are found after the documentation is signed, they will be addressed individually in the addendum section of this document when appropriate.
[2016-11-23] MEDS ORDERED: Ipratropium/Albuterol Neb 3 ML IH PRN (15:44)
[2016-11-23] MEDS ORDERED: Insulin DETEMIR 100 UNIT/ML X5UNITS SQ SCH (17:14)
[2016-11-23] MEDS: Insulin DETEMIR 100 UNIT/ML X5UNITS SQ SCH (22:07)
[2016-11-24] MEDS: *HR* OxyCODONE Immed Rel 5 MG TABLET PO PRN ×3 (00:53→21:17)
[2016-11-24 05:09] LABS: Albumin 2.4 g/dL (3.5-5.0); Albumin/Globulin Ratio 0.6 (1.1-2.2); Bilirubin,Total 0.6 mg/dL (0.2-1.2); Calcium 8.9 mg/dL (8.6-10.8); Globulin 3.8 g/dL (2.4-3.5); Potassium 4.1 mEq/L (3.5-4.5); Total Protein 6.2 g/dL (6.0-8.3)
[2016-11-24] MEDS: *HR* Enoxaparin 100 MG/ML SYRINGE SQ SCH (05:17)
[2016-11-24] MEDS: Lactulose Oral Soln 20 GM/30 ML UDC PO SCH ×4 (07:53→21:16)
[2016-11-24] MEDS: Folic Acid 1 MG TABLET PO SCH (07:54)
[2016-11-24] MEDS: Gabapentin 100 MG CAPSULE PO SCH ×2 (07:54→21:17)
[2016-11-24] MEDS: Sucralfate 1 GM TABLET PO SCH ×2 (07:54→17:12)
[2016-11-24] MEDS: Aspirin 81 MG TAB.CHEW PO SCH (07:54)
[2016-11-24] MEDS: Insulin LISPRO 300 UNITS/3 ML VIAL SQ SCH ×4 (07:55→21:40)
[2016-11-24] MEDS: Bumetanide 1 MG/4 ML VIAL IVP SCH (07:55)
--- NOTE | 2016-11-24 08:34 | Nephrology Progress Note ---
Date of Encounter: 11/24/16 Time of Encounter: 08:32 - Assessment and Plan (1) CKD (chronic kidney disease), stage III Current Visit: Yes Status: Chronic Patient's urine output is recorded as 0. She remains dialysis dependent. Last dialysis was yesterday. She is going to have a tunnel dialysis catheter placed on Saturday. I think we can remove the temporary femoral dialysis catheter so the patient can be more mobile. After she has a tunnel dialysis catheter placed on Saturday she will then have dialysis. (2) Type 2 diabetes mellitus with diabetic chronic kidney disease Current Visit: Yes Status: Acute Qualifiers: Diabetes mellitus superintendent terminal insulin use: without fpc use Chronic kidney disease stage: stage 3 (moderate) Qualified Code(s): E11.22 - Type 2 diabetes mellitus with diabetic chronic kidney disease; N18.3 - Chronic kidney disease, stage 3 (moderate) (3) Benign hypertension with chronic kidney disease, stage III Current Visit: Yes Status: Acute (4) Acute on chronic diastolic CHF (congestive heart failure) Current Visit: Yes Status: Acute Subjective Principal diagnosis: Pulmonary Edema Interval history: The patient's main complaint is that of tailbone pain from lying in bed. She says her breathing is good. She denies any other complaints. She did receive dialysis yesterday. Apparently the tunnel dialysis catheter was not placed yesterday because she is on . I am told her will be placed on Saturday. Objective - Vital Signs Vital signs: Vital Signs Temp Pulse Resp BP Pulse Ox 11/24/16 07:21 98.6 F 82 18 133/66 90 11/24/16 02:33 98.3 F 84 22 116/70 90 11/23/16 21:27 98.2 F 86 20 134/72 96 11/23/16 16:45 98.7 F 89 20 104/58 92 11/23/16 16:19 98.1 F 18 121/66 11/23/16 16:05 108/56 11/23/16 15:50 118/66 11/23/16 15:35 111/67 11/23/16 15:20 124/54 11/23/16 15:05 114/66 11/23/16 14:50 108/58 11/23/16 14:35 120/56 11/23/16 14:20 128/65 11/23/16 14:05 102/55 11/23/16 13:50 108/62 11/23/16 13:35 108/62 11/23/16 13:20 118/74 11/23/16 13:05 97.9 F 22 115/74 11/23/16 11:51 113/60 11/23/16 10:45 98.1 F 71 20 113/60 91 11/23/16 10:25 18 99 Intake and Output 11/23/16 11/24/16 11/24/16 23:59 07:59 15:59 Intake Total 30 / 30 Output Total 2600 / 2600 Balance -2600 / -2600 30 / 30 Intake: Oral 30 / 30 Output: Urine 0 / 0 Total Dialysis Output 2600 / 2600 Other: Weight 98.5 kg Blood Glucose* 295 141 Hemodialysis Net Fluid 2000 Removed (mL) Patient Weight 11/24/16 23:59 Weight 98.5 kg - General Appearance Exam: Patient is alert and oriented. She is in no acute distress. Lungs bibasilar rales. Heart regular rate and rhythm. Abdomen is benign. There is minimal lower extremity swelling. Has a temporary dialysis catheter in the right femoral vein. - Lab 11/23/16 04:27 11/24/16 04:05 Most recent lab results Calcium 8.9 mg/dL (8.6-10.8) 11/24/16 04:05 Phosphorus 3.3 mg/dL (2.3-4.7) 11/22/16 05:11 Consult Discharge Plan - Plan Referrals: Henrry Mccullough MD [Primary Care Provider] - (Web requested 11/14/16)
--- NOTE | 2016-11-24 10:42 | Internal Med Progress Note ---
Date of Encounter: 11/24/16 Time of Encounter: 08:15 - Assessment and plan (1) Acute on chronic renal failure Current Visit: Yes Status: Acute Assessment and plan: Urine output continues to remain poor. Nephrology recommends placement of permanent dialysis catheter which is planned for Saturday. We will remove temporary dialysis catheter and Sandhu catheter. Also stop Bumex per nephrology recommendations. Moderate risk for complications. Continue dialysis per nephrology recommendations. (2) CKD (chronic kidney disease), stage III Current Visit: Yes Status: Chronic (3) Acute CHF Current Visit: Yes Status: Resolved Qualifiers: Congestive heart failure type: diastolic Qualified Code(s): I50.31 - Acute diastolic (congestive) heart failure (4) Atrial fibrillation Current Visit: No Status: Chronic Assessment and plan: Heart rate remains well controlled. On anticoagulation with Lovenox for now. Eliquis on hold for planned procedure on Saturday. Qualifiers: Atrial fibrillation type: chronic Qualified Code(s): I48.2 - Chronic atrial fibrillation (5) Cirrhosis Current Visit: No Status: Chronic Qualifiers: Hepatic cirrhosis type: other cirrhosis Qualified Code(s): K74.69 - Other cirrhosis of liver (6) COPD (chronic obstructive pulmonary disease) Current Visit: Yes Status: Chronic Assessment and plan: On bronchodilator nebs as needed. Qualifiers: COPD type: unspecified COPD Qualified Code(s): J44.9 - Chronic obstructive pulmonary disease, unspecified (7) DM (diabetes mellitus), type 2 Current Visit: Yes Status: Chronic Assessment and plan: Much better controlled blood sugars. Continue current insulin regimen. 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 Denies any shortness of breath or chest pain. No nausea or vomiting today. Insignificant urine output. - Constitutional Vitals: Temp Pulse Resp BP Pulse Ox 98.6 F 82 18 133/66 90 11/24/16 07:21 11/24/16 07:21 11/24/16 07:21 11/24/16 07:21 11/24/16 07:21 General appearance: Present: cooperative, A&O X 3, no acute distress, answers questions appropriately - Respiratory Respiratory exam: Present: CTAB. Absent: accessory muscle use, rales, rhonchi, wheezes - Cardiovascular Cardiovascular exam: Present: RRR, +S1, +S2, systolic murmur. Absent: diastolic murmur, gallop, rubs - GI/Abdominal GI/Abdominal exam: Present: normal bowel sounds, soft, no peritoneal signs. Absent: distended, tenderness - Extremities Exam Extremities exam: Present: warm, radial pulses palpable and symetrical. Absent : calf tenderness, cyanotic, pedal edema Internal Medicine: Result - Labs CBC & Chem 7: 11/23/16 04:27 11/24/16 04:05 Labs: BMP 11/24/16 04:05 Sodium 136 Potassium 4.1 Chloride 97 L Carbon Dioxide 33 H BUN 20 D Creatinine 2.38 H Glucose 124 H Calcium 8.9 Liver Function 11/24/16 Range/Units 04:05 Total Bilirubin 0.6 (0.2-1.2) mg/dL AST 15 (5-34) Units/L ALT 13 (0-55) Units/L Alkaline Phosphatase 98 (38-126) Units/L Albumin 2.4 L (3.5-5.0) g/dL - ABG Interpretation ABG results: PT/INR, D-dimer PT 15.2 Seconds (9.4-12.1) H 11/19/16 10:52 - Impressions Impressions Guidance Ultrasound 11/20/16 00:00 IMPRESSION: Successful right femoral temporary hemodialysis catheter placement using ultrasound guidance. D/ / 11/21/2016 08:42:07 Annika Spencer MD / [email or web address] Interpreting Provider: Annika Spencer MD Consult Discharge Plan - Plan Referrals: Henrry Mccullough MD [Primary Care Provider] - (Web requested 11/14/16) - Attending Attestation This document has been at least partially created by [employer] technology by Dr. Rajan. Errors in grammar, wording or other phrases may exist. If errors are found after the documentation is signed, they will be addressed individually in the addendum section of this document when appropriate.
[2016-11-24] MEDS: Insulin DETEMIR 100 UNIT/ML X5UNITS SQ SCH (21:17)
[2016-11-25 00:14] LABS: ABG Base Excess 4.5 mEq/L (-2.0 to 3.0); ABG HCO3 33.1 mEQ/L (21-27); ABG Oxygen Saturation 85 % (95-98); ABG PH 7.23 pH Units (7.32-7.45); ABG PO2 59 mmHg (85-104); ABG TCO2 35.5 mEq/L (20-26); Blood Gas FiO2 44 %
[2016-11-25 00:15] LABS: ABG PCO2 79 mmHg (35-45)
[2016-11-25] MEDS: *HR* Enoxaparin 100 MG/ML SYRINGE SQ SCH (04:51)
[2016-11-25 06:28] LABS: Albumin 2.4 g/dL (3.5-5.0); Albumin/Globulin Ratio 0.6 (1.1-2.2); Bilirubin,Total 0.6 mg/dL (0.2-1.2); Calcium 9.1 mg/dL (8.6-10.8); Globulin 3.8 g/dL (2.4-3.5); Potassium 4.4 mEq/L (3.5-4.5); Total Protein 6.2 g/dL (6.0-8.3)
[2016-11-25] MEDS: Sucralfate 1 GM TABLET PO SCH ×2 (08:01→17:03)
[2016-11-25] MEDS: Lactulose Oral Soln 20 GM/30 ML UDC PO SCH ×4 (08:01→21:00)
[2016-11-25] MEDS: Aspirin 81 MG TAB.CHEW PO SCH (08:01)
[2016-11-25] MEDS: Folic Acid 1 MG TABLET PO SCH (08:01)
[2016-11-25] MEDS: Gabapentin 100 MG CAPSULE PO SCH ×2 (08:01→20:58)
[2016-11-25] MEDS: Insulin LISPRO 300 UNITS/3 ML VIAL SQ SCH ×4 (08:03→21:01)
--- NOTE | 2016-11-25 11:48 | Internal Med Progress Note ---
Date of Encounter: 11/25/16 Time of Encounter: 10:25 - Assessment and plan (1) Acute respiratory failure with hypoxia and hypercapnia Current Visit: Yes Status: Acute Assessment and plan: Due to pulmonary edema/CHF. Will get CT scan of the chest. Continue O2 supplementation. High risk for complications. (2) Acute CHF Current Visit: Yes Status: Acute Assessment and plan: Patient's respiratory distress appears to be worsening but stable currently. Chest x-ray shows increasing infiltrates bilaterally. ABG shows hypercapnia and hypoxia. We will use BiPAP as needed. High risk for complications. We will also get CT scan of the chest. Qualifiers: Congestive heart failure type: diastolic Qualified Code(s): I50.31 - Acute diastolic (congestive) heart failure (3) Acute on chronic renal failure Current Visit: Yes Status: Acute Assessment and plan: Patient will continue to receive hemodialysis per nephrology recommendations. Planned tunneled dialysis catheter placement tomorrow. No improvement in urine output. (4) CKD (chronic kidney disease), stage III Current Visit: Yes Status: Chronic (5) Atrial fibrillation Current Visit: No Status: Chronic Assessment and plan: Rate controlled. On Lovenox for anticoagulation for now. Eliquis on hold for procedure. We will resume Eliquis after tunneled dialysis catheter placement. Qualifiers: Atrial fibrillation type: chronic Qualified Code(s): I48.2 - Chronic atrial fibrillation (6) Cirrhosis Current Visit: No Status: Chronic Qualifiers: Hepatic cirrhosis type: other cirrhosis Qualified Code(s): K74.69 - Other cirrhosis of liver (7) COPD (chronic obstructive pulmonary disease) Current Visit: Yes Status: Chronic Assessment and plan: On bronchodilator nebs as needed. Qualifiers: COPD type: unspecified COPD Qualified Code(s): J44.9 - Chronic obstructive pulmonary disease, unspecified (8) DM (diabetes mellitus), type 2 Current Visit: Yes Status: Chronic Assessment and plan: Improved blood sugars. We will continue to monitor. Continue current insulin regimen. 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 Denies any complaints at this time. Patient has been requiring increased O2 supplementation since last evening. She says she feels better now. - Constitutional Vitals: Temp Pulse Resp BP Pulse Ox 97.6 F 79 17 111/63 90 11/25/16 06:57 11/25/16 06:57 11/25/16 06:57 11/25/16 06:57 11/25/16 06:57 General appearance: Present: cooperative, A&O X 2, mild distress, answers questions appropriately - Respiratory Respiratory exam: Absent: accessory muscle use, rales, rhonchi, wheezes Additional comments: Bilateral crackles - GI/Abdominal GI/Abdominal exam: Present: normal bowel sounds, soft, no peritoneal signs. Absent: distended, tenderness - Extremities Exam Extremities exam: Present: warm, radial pulses palpable and symetrical. Absent : calf tenderness, cyanotic, pedal edema - Neurological Exam Neurological exam: Present: alert, no focal deficits. Absent: facial droop, speech deficit - Skin Skin exam: Present: dry, intact Internal Medicine: Result - Labs CBC & Chem 7: 11/23/16 04:27 11/25/16 05:55 Labs: BMP 11/25/16 05:55 Sodium 135 L Potassium 4.4 Chloride 97 L Carbon Dioxide 31 H BUN 26 H Creatinine 3.16 H Glucose 161 H Calcium 9.1 Liver Function 11/25/16 Range/Units 05:55 Total Bilirubin 0.6 (0.2-1.2) mg/dL AST 15 (5-34) Units/L ALT 13 (0-55) Units/L Alkaline Phosphatase 100 (38-126) Units/L Albumin 2.4 L (3.5-5.0) g/dL - ABG Interpretation ABG results: ABG ABG pH 7.23 pH Units (7.32-7.45) L 11/25/16 00:04 ABG pCO2 79 mmHg (35-45) H* 11/25/16 00:04 ABG pO2 59 mmHg (85-104) L 11/25/16 00:04 ABG O2 Saturation 85 % (95-98) L 11/25/16 00:04 PT/INR, D-dimer PT 15.2 Seconds (9.4-12.1) H 11/19/16 10:52 - Impressions Impressions Chest X-Ray 11/25/16 07:37 IMPRESSION: Worsening diffuse airspace opacities and pleural effusions could be related to CHF, multifocal pneumonia, or ARDS. D/ / Cash Castro MD / Cash Castro MD Interpreting Provider: Cash Catsro MD Consult Discharge Plan - Plan Referrals: Henrry Mccullough MD [Primary Care Provider] - (Web requested 11/14/16) - Attending Attestation This document has been at least partially created by [employer] voice recognition technology by Dr. Rajan. Errors in grammar, wording or other phrases may exist. If errors are found after the documentation is signed, they will be addressed individually in the addendum section of this document when appropriate.
[2016-11-25 12:35] LABS: INR 1.3; Prothrombin Time 13.6 Seconds (9.4-12.1)
[2016-11-25] MEDS: *HR* OxyCODONE Immed Rel 5 MG TABLET PO PRN (18:55)
[2016-11-25] MEDS: Insulin DETEMIR 100 UNIT/ML X5UNITS SQ SCH (21:01)
[2016-11-26 04:04] LABS: Hemoglobin 8.4 g/dL (11.5-15.4); Nucleated Red Blood Cells 0.3 /100 WBC (0)
[2016-11-26 04:06] LABS: Hematocrit 28.8 % (35.3-44.9); Mean Corpuscular HGB Conc 29.2 g/dL (31.6-35.5); Mean Corpuscular Hemoglobin 24.1 pg (28.0-33.3); Mean Corpuscular Volume 82.8 fL (83.0-100.0); Mean Platelet Volume 8.9 fL (9.4-12.4); Platelet Count 343 K/mcL (140-400); Red Blood Count 3.48 M/mcL (3.82-4.97); Red Cell Distribution Width 16.5 % (11.5-14.5)
[2016-11-26 04:17] LABS: Calcium 9.3 mg/dL (8.6-10.8); Potassium 4.7 mEq/L (3.5-4.5)
[2016-11-26 04:41] LABS: Band Neutrophils % 7.3 % (0-4); Eosinophils # 0.3 K/mcL (0.0-0.6); Eosinophils % 1.8 %; Hypochromasia Present (Not Present); Lymphocytes # 1.4 K/mcL (0.6-4.6); Lymphocytes % 9.1 %; Metamyelocytes % 3.6 % (0); Monocytes # 1.6 K/mcL (0.0-1.3); Monocytes % 10.9 %; Platelet Estimate Normal (Normal); Segmented Neutrophils % 67.3 %
[2016-11-26 04:42] LABS: Anisocytosis 1+ (Not Present); Poikilocytosis 1+ (Not Present)
[2016-11-26] MEDS: Gabapentin 100 MG CAPSULE PO SCH ×2 (07:43→19:29)
[2016-11-26] MEDS: Lactulose Oral Soln 20 GM/30 ML UDC PO SCH ×3 (07:44→19:30)
[2016-11-26] MEDS: Insulin LISPRO 300 UNITS/3 ML VIAL SQ SCH ×4 (07:44→19:32)
[2016-11-26] MEDS: Folic Acid 1 MG TABLET PO SCH (07:44)
[2016-11-26] MEDS: Aspirin 81 MG TAB.CHEW PO SCH (07:44)
[2016-11-26] MEDS: Sucralfate 1 GM TABLET PO SCH ×2 (07:45→17:54)
[2016-11-26] MEDS ORDERED: *HR* Heparin 10,000 UNIT/10 ML VIAL IV PRN ×2 (08:39→14:38)
[2016-11-26] MEDS ORDERED: 0.9 % Sodium Chloride 250 ML IVC PRN ×3 (08:39→14:38)
[2016-11-26 08:40] LABS: ABG Base Excess 3.6 mEq/L (-2.0 to 3.0); ABG HCO3 31.7 mEQ/L (21-27); ABG Oxygen Saturation 84 % (95-98); ABG PCO2 69 mmHg (35-45); ABG PH 7.27 pH Units (7.32-7.45); ABG PO2 56 mmHg (85-104); ABG TCO2 33.8 mEq/L (20-26)
[2016-11-26 08:41] LABS: Blood Gas FiO2 50 %
[2016-11-26] MEDS ORDERED: 0.9 % Sodium Chloride 1,000 ML PRIME SCH ×2 (08:45→14:45)
--- NOTE | 2016-11-26 09:23 | Nephrology Progress Note ---
Date of Encounter: 11/26/16 Time of Encounter: 08:50 - Assessment and Plan (1) Acute worsening of stage 4 chronic kidney disease Current Visit: No Status: Acute MELECIO/CKD, acute on chronic diastolic CHF. Baseline creat 1.4. Creat 3.83. No documented urine output. Increasing respiratory effort, inability to maintain O2 sats on BiPap. Was to have tunneled dialysis catheter placed today, followed by HD. IR stated will not do until patient stablized. Spoke with Dr. Bowden, wants temporary line placed VASQUEZ followed by HD. IR notified. CXR on 11/25- worsening oppacities and pleural effusions; could be related to CHF, multifocal PNA or ARDS. Subjective Principal diagnosis: Pulmonary Edema Interval history: Increasing respiratory effort on BiPap, unable to maintain O2 sats, being transferred to ICU Objective - Vital Signs Vital signs: Vital Signs Temp Pulse Resp BP Pulse Ox 11/26/16 06:42 99 F 82 20 144/72 85 11/26/16 04:00 98.6 F 86 16 124/68 90 11/25/16 23:51 99.4 F 84 17 114/67 92 11/25/16 21:00 91 11/25/16 20:07 98.2 F 74 17 121/66 89 11/25/16 15:15 98.1 F 75 18 115/70 90 11/25/16 10:00 98.3 F 76 17 99/53 89 Intake and Output 11/25/16 11/26/16 11/26/16 23:59 07:59 15:59 Intake Total 100 / 100 0 / 0 Output Total 0 / 0 Balance 100 / 100 0 / 0 Intake: Oral 100 / 100 0 / 0 Output: Urine 0 / 0 Other: Weight 98.2 kg Blood Glucose* 126 228 Patient Weight 11/26/16 23:59 Weight 98.2 kg - General Appearance General appearance: Present: well-developed, well-nourished, appears started age EENT: Present: mucous membranes moist Neck: Present: no JVD Additional Comments: diminished throughout, tachypneic Cardiology: Present: regular rate, regular rhythm Additional Comments: generalized moderate pitting edema Gastrointestinal: Present: normoactive bowel sounds, no guarding Integumentary: Present: warm and dry Psychiatric: Present: cooperative - Lab 11/26/16 03:20 11/26/16 03:20 Most recent lab results ABG pH 7.27 pH Units (7.32-7.45) L 11/26/16 08:25 ABG pCO2 69 mmHg (35-45) H 11/26/16 08:25 ABG pO2 56 mmHg (85-104) L 11/26/16 08:25 ABG HCO3 31.7 mEQ/L (21-27) H 11/26/16 08:25 ABG O2 Saturation 84 % (95-98) L 11/26/16 08:25 Calcium 9.3 mg/dL (8.6-10.8) 11/26/16 03:20 Phosphorus 3.3 mg/dL (2.3-4.7) 11/22/16 05:11 Consult Discharge Plan - Plan Referrals: Henrry Mccullough MD [Primary Care Provider] - (Web requested 11/14/16)
[2016-11-26] MEDS ORDERED: 0.9 % Sodium Chloride 2,000 ML ONE (09:37)
--- NOTE | 2016-11-26 09:38 | Internal Med Progress Note ---
Date of Encounter: 11/26/16 Time of Encounter: 09:00 - Assessment and plan (1) Acute respiratory failure with hypoxia and hypercapnia Current Visit: Yes Status: Acute Assessment and plan: Worsening today. Will repeat ABG. Discussed with chocolate temperer. Will transfer patient to ICU as patient remains full code and is in respiratory distress with acute worsening. Currently unstable for placement of tunneled dialysis catheter. Nephrology recommends placing a temporary dialysis catheter to enable urgent dialysis. High risk for complications. Patient is in a critical condition at this time. WBC count is also elevated. Could also be developing healthcare associated pneumonia. We will order CT scan of the chest. Consult chocolate temperer to help manage patient in ICU. (2) Acute CHF Current Visit: Yes Status: Acute Assessment and plan: Worsened today. Patient did not receive dialysis over the weekend and did not make any urine output. Will get urgent 2-D echocardiogram. Plan for urgent hemodialysis after temporary dialysis catheter replaced. Qualifiers: Congestive heart failure type: diastolic Qualified Code(s): I50.31 - Acute diastolic (congestive) heart failure (3) Acute on chronic renal failure Current Visit: Yes Status: Acute Assessment and plan: Managed per nephrology recommendations with hemodialysis. (4) CKD (chronic kidney disease), stage III Current Visit: Yes Status: Chronic (5) Atrial fibrillation Current Visit: No Status: Chronic Assessment and plan: Remains in A. fib. Heart rate is controlled. Resume anticoagulation after placement of dialysis catheter. Qualifiers: Atrial fibrillation type: chronic Qualified Code(s): I48.2 - Chronic atrial fibrillation (6) Cirrhosis Current Visit: No Status: Chronic Qualifiers: Hepatic cirrhosis type: other cirrhosis Qualified Code(s): K74.69 - Other cirrhosis of liver (7) COPD (chronic obstructive pulmonary disease) Current Visit: Yes Status: Chronic Assessment and plan: Continue bronchodilator nebs as needed. Pulmonology consult. Qualifiers: COPD type: unspecified COPD Qualified Code(s): J44.9 - Chronic obstructive pulmonary disease, unspecified (8) DM (diabetes mellitus), type 2 Current Visit: Yes Status: Chronic Assessment and plan: Blood sugars are elevated today. Will increase long-acting insulin dosage. 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 Was placed on BiPAP. Sats still remained low from 85-90%. Patient denies any chest pain. She has not had any urine output. - Constitutional Vitals: Temp Pulse Resp BP Pulse Ox 99 F 82 20 144/72 85 11/26/16 06:42 11/26/16 06:42 11/26/16 06:42 11/26/16 06:42 11/26/16 06:42 General appearance: Present: cooperative, A&O X 2, severe distress, answers questions appropriately - ENT Additional comments: BiPAP mask in place - Neck Neck exam general surgery: Present: supple, trachea midline. Absent: lymphadenopathy - Respiratory Respiratory exam: Present: accessory muscle use. Absent: rales, rhonchi, wheezes Additional comments: Basal crackles - Cardiovascular Cardiovascular exam: Present: RRR, +S1, +S2. Absent: diastolic murmur, gallop, rubs, systolic murmur - GI/Abdominal GI/Abdominal exam: Present: normal bowel sounds, soft, no peritoneal signs. Absent: distended, tenderness - Extremities Exam Extremities exam: Present: pedal edema, warm, radial pulses palpable and symetrical. Absent: calf tenderness, cyanotic - Neurological Exam Neurological exam: Present: alert, no focal deficits. Absent: facial droop, speech deficit - Skin Skin exam: Present: dry, intact Internal Medicine: Result - Labs CBC & Chem 7: 11/26/16 03:20 11/26/16 03:20 Labs: Short CBC 11/26/16 Range/Units 03:20 WBC 14.8 H (4.3-11.1) K/mcL Hgb 8.4 L (11.5-15.4) g/dL Hct 28.8 L (35.3-44.9) % Plt Count 343 (140-400) K/mcL Neutrophils # 11.0 H (1.6-8.9) K/mcL BMP 11/26/16 03:20 Sodium 134 L Potassium 4.7 H Chloride 96 L Carbon Dioxide 28 BUN 31 H Creatinine 3.83 H Glucose 181 H Calcium 9.3 - ABG Interpretation ABG results: ABG ABG pH 7.27 pH Units (7.32-7.45) L 11/26/16 08:25 ABG pCO2 69 mmHg (35-45) H 11/26/16 08:25 ABG pO2 56 mmHg (85-104) L 11/26/16 08:25 ABG O2 Saturation 84 % (95-98) L 11/26/16 08:25 PT/INR, D-dimer PT 13.6 Seconds (9.4-12.1) H 11/25/16 12:07 Consult Discharge Plan - Plan Referrals: Henrry Mccullough MD [Primary Care Provider] - (Web requested 11/14/16) - Attending Attestation This document has been at least partially created by [employer] recognition technology by Dr. Rajan. Errors in grammar, wording or other phrases may exist. If errors are found after the documentation is signed, they will be addressed individually in the addendum section of this document when appropriate.
--- NOTE | 2016-11-26 11:12 | Pulmonology Consult Note ---
<Kostas Padron - Last Filed: 11/26/16 17:49> Date of Encounter: 11/26/16 Time of Encounter: 11:00 Assessment and Plan (1) Acute CHF Current Visit: Yes Status: Acute Acute on chronic diastolic heart failure. Echo 07/11/16: A. Fib. LVEF 65%. Normal LV chamber size w/mild concentric LV hypertorphy. Intermediate diastolic dysfcn due to A. Fib. 26 Nov 2016: CXR: Cardiomediastinal contours obscured. Probable increased pleural effusions. Worsening diffuse airspace opacities and pleural effusions...CHF vs multifocal PNA vs ARDS. 19 November 2016: Left thoracocentesis - 460mL removed BNP 878 - Dialysis per nephrology for fluid diuresis. - Continue BiPap. - Consider intubation if patient decompensates. Qualifiers: Congestive heart failure type: diastolic Qualified Code(s): I50.31 - Acute diastolic (congestive) heart failure (2) Acute worsening of stage 4 chronic kidney disease Current Visit: No Status: Acute Followed by nephrology; Dr. Bowden. BUN: 20 > 26 > 31 Cr: 2.38 > 3.16 > 3.83 - IR needs patient to be more stable prior to placing tunneled dialysis catheter. Until then, will place temporary line followed by HD. - continue aranesp (3) Pulmonary edema Current Visit: Yes Status: Acute as above Qualifiers: Chronicity: acute Qualified Code(s): J81.0 - Acute pulmonary edema (4) Atrial fibrillation Current Visit: Yes Status: Chronic Atrial fibrillation with RVR. Currently rate controlled with HR in 80's. BP stable at 144/72. - Continue cardizem 30mg TID, Lopressor 12.5mg BID - Discontinue Eliquis until tunneled dialysis cath placed - Continue Lovenox until Eliquis may be restarted Qualifiers: Atrial fibrillation type: chronic Qualified Code(s): I48.2 - Chronic atrial fibrillation (5) COPD (chronic obstructive pulmonary disease) Current Visit: Yes Status: Chronic - Continue: Proventil neb Q4hr PRN AMANDA, Duoneb Q6hr PRN AMANDA Qualifiers: COPD type: unspecified COPD Qualified Code(s): J44.9 - Chronic obstructive pulmonary disease, unspecified (6) DM type 2 (diabetes mellitus, type 2) Current Visit: No Status: Chronic Continue SS insulin and accucheck. Qualifiers: Diabetes mellitus complication status: with kidney complications Diabetes mellitus complication detail: with nephropathy Diabetes mellitus prison insulin use: without prison use Qualified Code(s): E11.21 - Type 2 diabetes mellitus with diabetic nephropathy (7) Cirrhosis Current Visit: Yes Status: Chronic Qualifiers: Hepatic cirrhosis type: unspecified hepatic cirrhosis Ascites presence: without ascites Qualified Code(s): K74.60 - Unspecified cirrhosis of liver (8) Obesity Current Visit: No Status: Chronic Qualifiers: Obesity type: due to excess calories Obesity severity: morbid Qualified Code(s): E66.01 - Morbid (severe) obesity due to excess calories (9) LITO on CPAP Current Visit: Yes Status: Chronic (10) DVT prophylaxis Current Visit: No Status: Acute Lovenox History of Present Illness Consult date: 11/26/16 Requesting physician: Rita Rajan Reason for consult: dyspnea Chief complaint: AMANDA History of present illness: Hospital day 14 ICU day 1 Mrs. Rodriguez, a 71yo female, presented to the ER 11/12/16 from retirement with CC: difficulty in breathing. Admitted to medicine floor with acute exacerbation CHF with concomittant UTI in setting of COPD, CKD, DMII, Obesity, LITO on CPAP. Symptomatically improved over the next several days however pulmonary edema persisted and urine output remained inadequate. Patient was planned for discharge on the but slowly decompensated. The morning of the , she was on BiPap 50% FiO2 and transferred to the ICU. She remains comfortable on BiPap. No questions at this time. Past Med Surg Social Fam HX - Past Medical History Medical history: arthritis, atrial fibrillation, cirrhosis, CHF, COPD, diabetes , GERD, hyperlipidemia, hypertension, renal disease, other Psychiatric history: anxiety, panic disorder - Past Surgical History Surgical History: cholecystectomy, hysterectomy - Social History Smoking Status: Former smoker Smokeless Tobacco Status: No Alcohol use: none Drug use: none - Family History Mother Living Status: Hx Family Cardiac Disorders: Yes (atrial fibrillation) Hx Family GI Disorders: Yes (Polyps) Hx Family Endocrine Disorder: Yes (DM) Father Living Status: Hx Family Cardiac Disorders: Yes (HTN) Hx Family Cancer: Yes (Leukemia) Sister Living Status: Still Living Hx Family Cancer: Yes (Breast Cancer, age 40's) Hx Family Endocrine Disorder: Yes (diabetes mellitus) Brother Living Status: Still Living Hx Family Cardiac Disorders: No Hx Family Respiratory Disorders: No Hx Family Cancer: No Hx Family GI Disorders: No Hx Family Endocrine Disorder: Yes Hx Family Neuromuscular Disorders: No Hx Family Neurologic Disorders: No Hx Family HEENT Disorders: No Hx Family Autoimmune Disorders: No Medications and Allergies GlipiZIDE [Glucotrol] 10 mg PO BID 08/14/15 [History] Metoprolol [Lopressor] 12.5 mg PO BID 08/14/15 [History] Sertraline [Zoloft] 150 mg PO DAILY 08/14/15 [History] Sucralfate [Carafate] 2 gm PO BID 08/14/15 [History] Lactulose 10 gm PO QID 06/24/16 [History] Aspirin 81 mg PO DAILY 07/11/16 [History] Fluticasone/Vilanterol [Breo Ellipta 100-25 Mcg INH] 1 each IH DAILY 07/11/16 [ History] Pantoprazole Sodium [Protonix] 40 mg PO DAILY 07/11/16 [History] Oxycodone HCl 10 mg PO Q6H PRN #25 tablet 07/23/16 [Rx] Diltiazem [Cardizem] 30 mg PO TID 09/20/16 [History] Gabapentin [Neurontin] 100 mg PO BID 09/20/16 [History] Insulin DETEMIR [Levemir Flextouch] 5 unit SQ HS 09/20/16 [History] Sennosides [Senna] 17.2 mg PO DAILY 09/20/16 [History] Simethicone [Gas-X] 120 mg PO BID PRN 09/20/16 [History] Torsemide [Demadex] 10 mg PO BID 09/20/16 [History] Apixaban [Eliquis] 2.5 mg PO BID 11/13/16 [History] Insulin ASPART [Novolog Flexpen] 0 - 12 units SQ TID PRN 11/13/16 [History] Spironolactone [Aldactone] 25 mg PO DAILY 11/13/16 [History] Allergies ceftriaxone [From Rocephin] Allergy (Severe, Verified 08/14/16 17:10) Anaphylaxis Occured at [facility]. Required ICU transfer, intubation, and mechanical ventilation. ciprofloxacin [From Cipro] Allergy (Mild, Verified 08/14/16 17:10) Rash sulfamethoxazole [From Bactrim] Allergy (Verified 08/14/16 17:10) See Comments trimethoprim [From Bactrim] Allergy (Verified 08/14/16 17:10) See Comments rozeta Allergy (Uncoded 06/24/16 15:20) See Comments All Systems: A 10-system review of systems was performed and is negative for pertinent findings except as documented above in the HPI. - Constitutional Constitutional: no fever(s), no headache(s) - EENT Nose, mouth and throat: no dysphagia - Cardiovascular Cardiovascular: dyspnea, irregular heart rhythm, pedal edema, no chest pain, no diaphoresis - Respiratory Respiratory: no hemoptysis, no stridor - Gastrointestinal Gastrointestinal: no abdominal pain Physical Examination Vital Signs: Vital Signs, Last 4 Hours Temp Pulse Resp BP Pulse Ox 11/26/16 09:45 98.5 F 76 12 123/56 95 General appearance: no acute distress, alert Eyes: nonicteric ENT: oropharynx moist Neck: supple Effort: mildly labored Auscultation: bilateral: diminished breath sounds, rales Cardiovascular: irregular rhythm Gastrointestinal: hypoactive bowel sounds Integumentary: normal Extremities: no cyanosis, pink and warm (brisk capillary refill < 3 sec), edema (bilateral 1+ pitting pedal edema) Musculoskeletal: no deformities mood appropriate, affect normal Results - Laboratory Findings CBC and BMP: 11/26/16 03:20 11/26/16 03:20 ABG ABG pH 7.27 pH Units (7.32-7.45) L 11/26/16 08:25 ABG pCO2 69 mmHg (35-45) H 11/26/16 08:25 ABG pO2 56 mmHg (85-104) L 11/26/16 08:25 ABG O2 Saturation 84 % (95-98) L 11/26/16 08:25 PT/INR, D-dimer PT 13.6 Seconds (9.4-12.1) H 11/25/16 12:07 Abnormal lab findings: Abnormal lab results WBC 14.8 K/mcL (4.3-11.1) H 11/26/16 03:20 RBC 3.48 M/mcL (3.82-4.97) L 11/26/16 03:20 Hgb 8.4 g/dL (11.5-15.4) L 11/26/16 03:20 Hct 28.8 % (35.3-44.9) L 11/26/16 03:20 MCV 82.8 fL (83.0-100.0) L 11/26/16 03:20 MCH 24.1 pg (28.0-33.3) L 11/26/16 03:20 MCHC 29.2 g/dL (31.6-35.5) L 11/26/16 03:20 RDW 16.5 % (11.5-14.5) H 11/26/16 03:20 MPV 8.9 fL (9.4-12.4) L 11/26/16 03:20 Band Neutrophils % 7.3 % (0-4) H 11/26/16 03:20 Metamyelocytes % 3.6 % (0) H 11/26/16 03:20 Neutrophils # 11.0 K/mcL (1.6-8.9) H 11/26/16 03:20 Monocytes # 1.6 K/mcL (0.0-1.3) H 11/26/16 03:20 Nucleated RBCs/100 WBC 0.3 /100 WBC (0) H 11/26/16 03:20 Hypochromasia Present (Not Present) A 11/26/16 03:20 Poikilocytosis 1+ (Not Present) A 11/26/16 03:20 Anisocytosis 1+ (Not Present) A 11/26/16 03:20 PT 13.6 Seconds (9.4-12.1) H 11/25/16 12:07 ABG pH 7.27 pH Units (7.32-7.45) L 11/26/16 08:25 ABG pCO2 69 mmHg (35-45) H 11/26/16 08:25 ABG pO2 56 mmHg (85-104) L 11/26/16 08:25 ABG HCO3 31.7 mEQ/L (21-27) H 11/26/16 08:25 ABG Total CO2 33.8 mEq/L (20-26) H 11/26/16 08:25 ABG O2 Saturation 84 % (95-98) L 11/26/16 08:25 ABG Base Excess 3.6 mEq/L (-2.0 to 3.0) H 11/26/16 08:25 Sodium 134 mEq/L (136-145) L 11/26/16 03:20 Potassium 4.7 mEq/L (3.5-4.5) H 11/26/16 03:20 Chloride 96 mEq/L (98-109) L 11/26/16 03:20 BUN 31 mg/dL (7-20) H 11/26/16 03:20 Creatinine 3.83 mg/dL (0.57-1.11) H 11/26/16 03:20 Est GFR ( Amer) 14 (> 60) L 11/26/16 03:20 Est GFR (Non-Af Amer) 12 (> 60) L 11/26/16 03:20 Glucose 181 mg/dL (70-99) H 11/26/16 03:20 POC Glucose 249 (58-89) H 11/26/16 09:46 Iron 26 mcg/dL (50-170) L 11/23/16 04:27 % Saturation 10 % (15-50) L 11/23/16 04:27 B-Natriuretic Peptide 878 pg/mL (0-100) H 11/26/16 03:21 Albumin 2.4 g/dL (3.5-5.0) L 11/25/16 05:55 Globulin 3.8 g/dL (2.4-3.5) H 11/25/16 05:55 Albumin/Globulin Ratio 0.6 (1.1-2.2) L 11/25/16 05:55 Urine Protein 30 mg/dL (Neg-Trace) H 11/12/16 07:58 Urine Blood Small (Negative) H 11/12/16 07:58 Ur Leukocyte Esterase Small (Negative) H 11/12/16 07:58 Urine Microscopic RBC 5-15 per hpf (0-3) H 11/12/16 07:58 Urine Microscopic WBC 5-15 per hpf (0-3) H 11/12/16 07:58 Ur Squamous Epith Cells Many per lpf (None-Few) H 11/12/16 07:58 Ur Culture Indicated? YES (NO) A 11/12/16 07:58 - Clinical Findings Intake & Output: Intake & Output 11/25/16 11/26/16 11/26/16 23:59 07:59 15:59 Intake Total 100 / 100 0 / 0 Output Total 0 / 0 Balance 100 / 100 0 / 0 Weight 98.2 kg Consult Discharge Plan - Plan Referrals: Henrry Mccullough MD [Primary Care Provider] - (Web requested 11/14/16) <Ulices Luis Clara - Last Filed: 11/26/16 22:39> Date of Encounter: 11/26/16 All Systems: A 10-system review of systems was performed and is negative for pertinent findings except as documented above in the HPI. Physical Examination Vital Signs: Vital Signs, Last 4 Hours Temp Pulse Resp BP Pulse Ox 11/26/16 22:04 24 121/65 97 11/26/16 22:00 66 11 121/65 98 11/26/16 21:00 64 14 104/54 94 11/26/16 20:00 77 12 113/59 95 11/26/16 19:59 78 11/26/16 19:43 97.6 F 11/26/16 19:00 85 18 105/59 93 Results - Laboratory Findings CBC and BMP: 11/26/16 03:20 11/26/16 03:20 ABG ABG pH 7.27 pH Units (7.32-7.45) L 11/26/16 08:25 ABG pCO2 69 mmHg (35-45) H 11/26/16 08:25 ABG pO2 56 mmHg (85-104) L 11/26/16 08:25 ABG O2 Saturation 84 % (95-98) L 11/26/16 08:25 PT/INR, D-dimer PT 13.6 Seconds (9.4-12.1) H 11/25/16 12:07 Abnormal lab findings: Abnormal lab results WBC 14.8 K/mcL (4.3-11.1) H 11/26/16 03:20 RBC 3.48 M/mcL (3.82-4.97) L 11/26/16 03:20 Hgb 8.4 g/dL (11.5-15.4) L 11/26/16 03:20 Hct 28.8 % (35.3-44.9) L 11/26/16 03:20 MCV 82.8 fL (83.0-100.0) L 11/26/16 03:20 MCH 24.1 pg (28.0-33.3) L 11/26/16 03:20 MCHC 29.2 g/dL (31.6-35.5) L 11/26/16 03:20 RDW 16.5 % (11.5-14.5) H 11/26/16 03:20 MPV 8.9 fL (9.4-12.4) L 11/26/16 03:20 Band Neutrophils % 7.3 % (0-4) H 11/26/16 03:20 Metamyelocytes % 3.6 % (0) H 11/26/16 03:20 Neutrophils # 11.0 K/mcL (1.6-8.9) H 11/26/16 03:20 Monocytes # 1.6 K/mcL (0.0-1.3) H 11/26/16 03:20 Nucleated RBCs/100 WBC 0.3 /100 WBC (0) H 11/26/16 03:20 Hypochromasia Present (Not Present) A 11/26/16 03:20 Poikilocytosis 1+ (Not Present) A 11/26/16 03:20 Anisocytosis 1+ (Not Present) A 11/26/16 03:20 PT 13.6 Seconds (9.4-12.1) H 11/25/16 12:07 ABG pH 7.27 pH Units (7.32-7.45) L 11/26/16 08:25 ABG pCO2 69 mmHg (35-45) H 11/26/16 08:25 ABG pO2 56 mmHg (85-104) L 11/26/16 08:25 ABG HCO3 31.7 mEQ/L (21-27) H 11/26/16 08:25 ABG Total CO2 33.8 mEq/L (20-26) H 11/26/16 08:25 ABG O2 Saturation 84 % (95-98) L 11/26/16 08:25 ABG Base Excess 3.6 mEq/L (-2.0 to 3.0) H 11/26/16 08:25 Sodium 134 mEq/L (136-145) L 11/26/16 03:20 Potassium 4.7 mEq/L (3.5-4.5) H 11/26/16 03:20 Chloride 96 mEq/L (98-109) L 11/26/16 03:20 BUN 31 mg/dL (7-20) H 11/26/16 03:20 Creatinine 3.83 mg/dL (0.57-1.11) H 11/26/16 03:20 Est GFR ( Amer) 14 (> 60) L 11/26/16 03:20 Est GFR (Non-Af Amer) 12 (> 60) L 11/26/16 03:20 Glucose 181 mg/dL (70-99) H 11/26/16 03:20 POC Glucose 137 (58-89) H 11/26/16 19:19 Iron 26 mcg/dL (50-170) L 11/23/16 04:27 % Saturation 10 % (15-50) L 11/23/16 04:27 B-Natriuretic Peptide 878 pg/mL (0-100) H 11/26/16 03:21 Albumin 2.4 g/dL (3.5-5.0) L 11/25/16 05:55 Globulin 3.8 g/dL (2.4-3.5) H 11/25/16 05:55 Albumin/Globulin Ratio 0.6 (1.1-2.2) L 11/25/16 05:55 Urine Protein 30 mg/dL (Neg-Trace) H 11/12/16 07:58 Urine Blood Small (Negative) H 11/12/16 07:58 Ur Leukocyte Esterase Small (Negative) H 11/12/16 07:58 Urine Microscopic RBC 5-15 per hpf (0-3) H 11/12/16 07:58 Urine Microscopic WBC 5-15 per hpf (0-3) H 11/12/16 07:58 Ur Squamous Epith Cells Many per lpf (None-Few) H 11/12/16 07:58 Ur Culture Indicated? YES (NO) A 11/12/16 07:58 - Clinical Findings Intake & Output: Intake & Output 11/26/16 11/26/16 11/26/16 07:59 15:59 23:59 Intake Total 600 / 600 0 / 0 Output Total 0 / 0 2600 / 2600 Balance 600 / 600 -2600 / -2600 Weight 98.2 kg - Attending Attestation I examined this patient and my medical decision-making was reviewed with the BUILDING SERVICES SUPERVISOR/PA/Advanced Practice Nurse/Resident Physician. I agree with the documented findings, disposition and treatment plan as described except to the extent set forth below. I was called by the primary care because this patient's breathing is getting worse and I went to 2A to see patient and she was on BiPAP with FIO 50%. Patient has significant comorbidities and she has diminished breath sounds with irreqular heart beats. Patient was transferred to ICU and I discussed with sisters at bedside that her condition could deteriorate and may need invasive mechanical ventilation and patient remain full code. Patient needs fluid removal and IR to place HD catheter and to have fluid removal. Overall prognosis is poor and we may consult palliative care. I'm hoping with HD and fluid removal she will stabilize mainly from pulmonary standpoint and then she can be transferred to the floor again. Thanks for the consult.
[2016-11-26] MEDS: *HR* OxyCODONE Immed Rel 5 MG TABLET PO PRN ×2 (11:42→20:12)
[2016-11-26] MEDS ORDERED: 0.9 % Sodium Chloride 250 ML ONE (12:49)
[2016-11-26] MEDS ORDERED: *HR* Heparin 5,000 UNIT/ML VIAL ONE (13:07)
[2016-11-26] MEDS ORDERED: Benzonatate 100 MG CAPSULE PO PRN (13:29)
[2016-11-26] MEDS ORDERED: D5% in Water 1,000 ML IVC PRN (13:29)
[2016-11-26] MEDS ORDERED: Albuterol 2.5 MG/3 ML NEBULIZER IH PRN (13:29)
[2016-11-26] MEDS ORDERED: Dextrose Gel 15 GM PO PRN ×2 (13:29)
[2016-11-26] MEDS ORDERED: Ondansetron ODT 4 MG TAB.RAPDIS SL PRN (13:29)
[2016-11-26] MEDS ORDERED: Naloxone 0.4 MG/ML INJ IVP PRN (13:29)
[2016-11-26] MEDS ORDERED: Ipratropium/Albuterol Neb 3 ML IH PRN (13:29)
[2016-11-26] MEDS ORDERED: *HR* Dextrose 50 % in Water (Syg) 50 ML SYRINGE IVP PRN (13:29)
--- NOTE | 2016-11-26 14:20 | IR Procedure Note ---
Date of procedure: 11/26/16 Consent Obtained: Verbal consent, Written consent Timeout: Correct patient and procedure verified, Correct site verified, Time out performed, Skin prep completed Local anesthetic: Lidocaine 1% Indications: renal failure Procedure Performed: temp HDC placement Site/Technique: L CFV Estimated blood loss (cc): 10 Complications: None; Tolerated procedure well Post Procedure Treatment Plan: KUB pending
[2016-11-26] MEDS: Insulin DETEMIR 100 UNIT/ML X5UNITS SQ SCH (19:30)
[2016-11-26] MEDS ORDERED: APIXABAN 5 MG TABLET PO SCH (21:00)
[2016-11-26] MEDS ORDERED: *HR* LORazepam 2 MG/ML VIAL IVP STA (23:25)
[2016-11-27 03:39] LABS: Basophils % 0.1 %; Eosinophils # 0.1 K/mcL (0.0-0.6); Eosinophils % 1.3 %; Hemoglobin 7.7 g/dL (11.5-15.4); Lymphocytes # 0.6 K/mcL (0.6-4.6); Lymphocytes % 5.7 %; Mean Corpuscular HGB Conc 28.5 g/dL (31.6-35.5); Mean Corpuscular Hemoglobin 23.5 pg (28.0-33.3); Mean Corpuscular Volume 82.6 fL (83.0-100.0); Mean Platelet Volume 8.1 fL (9.4-12.4); Monocytes % 9.6 %; Neutrophils # 8.5 K/mcL (1.6-8.9); Nucleated Red Blood Cells 0.2 /100 WBC (0); Platelet Count 280 K/mcL (140-400); Red Blood Count 3.27 M/mcL (3.82-4.97); Red Cell Distribution Width 16.9 % (11.5-14.5); Segmented Neutrophils % 79.3 %
[2016-11-27 03:53] LABS: Calcium 8.6 mg/dL (8.6-10.8); Potassium 4.1 mEq/L (3.5-4.5)
[2016-11-27 04:00] LABS: Anisocytosis 1+ (Not Present); Hypochromasia Present (Not Present); Platelet Estimate Normal (Normal)
[2016-11-27 06:21] LABS: ABG Base Excess 6.2 mEq/L (-2.0 to 3.0); ABG HCO3 34.1 mEQ/L (21-27); ABG Oxygen Saturation 92 % (95-98); ABG PH 7.29 pH Units (7.32-7.45); ABG PO2 72 mmHg (85-104); ABG TCO2 36.3 mEq/L (20-26)
[2016-11-27 06:25] LABS: Blood Gas FiO2 50 %
[2016-11-27 06:29] LABS: ABG PCO2 71 mmHg (35-45)
--- NOTE | 2016-11-27 08:19 | Nephrology Progress Note ---
Date of Encounter: 11/27/16 Time of Encounter: 08:00 - Assessment and Plan (1) Acute worsening of stage 4 chronic kidney disease Current Visit: No Status: Acute MELECIO/CKD, acute on chronic diastolic CHF. Baseline creat 1.4. Creat 3.83. No documented urine output. Increasing respiratory effort again this morning, inability to maintain O2 sats on BiPap. Had temporary dialysis catheter placed yesterday in left CFV, followed by HD. Apparently, respiratory status improved following HD yesterday. Hypercapneic respratory failure with underlying pulmonary diseas, recurrent pleural efusions. Patient has declined pulmonary workup and bronch in past. Will UF today versus HD, no metabolic acidosis or hyperkalemia. This will eliminate fluid overload variable from declining respiratory status and hopefully will be more stable to have tunneled HD catheter placed. CXR on 11/25-worsening oppacities and pleural effusions; could be related to CHF, multifocal PNA or ARDS. Subjective Principal diagnosis: Pulmonary Edema Interval history: Increasing respiratory effort on BiPap, unable to maintain O2 sats, non sensical words Objective - Vital Signs Vital signs: Vital Signs Temp Pulse Resp BP Pulse Ox 11/27/16 08:12 98.8 F 11/27/16 07:00 84 16 130/61 95 11/27/16 05:50 72 15 109/57 96 11/27/16 05:00 71 14 115/56 97 11/27/16 04:36 98.2 F 11/27/16 04:00 71 16 106/59 96 11/27/16 03:56 15 102/52 96 11/27/16 03:10 74 11/27/16 03:00 74 31 116/68 93 11/27/16 01:56 68 12 102/53 96 11/27/16 01:03 69 11/27/16 01:00 69 19 98/50 95 11/27/16 00:03 98 F 11/27/16 00:00 65 19 118/87 89 11/26/16 23:32 13 119/62 95 11/26/16 23:00 61 14 114/67 95 11/26/16 22:04 24 121/65 97 11/26/16 22:00 66 11 121/65 98 11/26/16 21:00 64 14 104/54 94 11/26/16 20:00 77 12 113/59 95 11/26/16 19:59 78 11/26/16 19:43 97.6 F 11/26/16 19:00 85 18 105/59 93 11/26/16 18:20 97.7 F 15 110/57 11/26/16 18:15 109/56 11/26/16 18:00 80 18 109/56 94 11/26/16 17:45 116/63 11/26/16 17:30 115/66 11/26/16 17:15 120/65 11/26/16 17:00 71 18 118/78 91 11/26/16 16:45 115/72 11/26/16 16:30 107/54 11/26/16 16:25 97.7 F 11/26/16 16:15 100/54 11/26/16 16:00 71 18 99/55 94 11/26/16 15:45 110/59 11/26/16 15:30 114/59 11/26/16 15:15 97.7 F 11 119/59 11/26/16 15:00 72 18 109/53 94 11/26/16 14:00 64 10 103/56 98 11/26/16 13:00 76 14 101/64 95 11/26/16 12:00 74 14 118/61 96 11/26/16 11:45 79 11/26/16 11:29 98.9 F 79 16 149/67 92 11/26/16 10:45 79 21 123/64 94 11/26/16 09:45 98.5 F 76 12 123/56 95 Intake and Output 11/26/16 11/27/16 11/27/16 23:59 07:59 15:59 Intake Total 0 / 0 0 / 0 Output Total 2600 / 2600 0 / 0 Balance -2600 / -2600 0 / 0 Intake: Oral 0 / 0 0 / 0 Output: Urine 0 / 0 0 / 0 Total Dialysis Output 2600 / 2600 Other: Weight 93.531 kg Blood Glucose* 137 134 Hemodialysis Net Fluid 2000 Removed (mL) Patient Weight 11/27/16 23:59 Weight 93.531 kg - General Appearance General appearance: Present: well-developed, well-nourished, appears started age EENT: Present: mucous membranes moist Neck: Present: no JVD, no carotid bruit Additional Comments: diminished,harsh, tachypneic Cardiology: Present: regular rate, regular rhythm Additional Comments: mild LE pitting edema Gastrointestinal: Present: hypoactive bowel sounds Integumentary: Present: warm and dry - Lab 11/27/16 03:00 11/27/16 03:00 Most recent lab results ABG pH 7.29 pH Units (7.32-7.45) L 11/27/16 06:10 ABG pCO2 71 mmHg (35-45) H* 11/27/16 06:10 ABG pO2 72 mmHg (85-104) L 11/27/16 06:10 ABG HCO3 34.1 mEQ/L (21-27) H 11/27/16 06:10 ABG O2 Saturation 92 % (95-98) L 11/27/16 06:10 Calcium 8.6 mg/dL (8.6-10.8) 11/27/16 03:00 Phosphorus 3.3 mg/dL (2.3-4.7) 11/22/16 05:11 Consult Discharge Plan - Plan Referrals: Henrry Mccullough MD [Primary Care Provider] - (Web requested 11/14/16)
[2016-11-27] MEDS ORDERED: 0.9 % Sodium Chloride 250 ML IVC PRN (08:23)
[2016-11-27] MEDS ORDERED: *HR* Heparin 10,000 UNIT/10 ML VIAL IV PRN (08:23)
[2016-11-27] MEDS ORDERED: 0.9 % Sodium Chloride 2,000 ML ONE (09:13)
[2016-11-27] MEDS: Ipratropium/Albuterol Neb 3 ML IH SCH ×3 (09:33→21:51)
[2016-11-27] MEDS: Sucralfate 1 GM TABLET PO SCH ×2 (10:17→16:12)
[2016-11-27] MEDS ORDERED: 0.9 % Sodium Chloride 250 ML ONE (10:34)
[2016-11-27] MEDS: Insulin LISPRO 300 UNITS/3 ML VIAL SQ SCH ×4 (10:36→20:05)
[2016-11-27] MEDS: Lactulose Oral Soln 20 GM/30 ML UDC PO SCH ×4 (10:37→20:05)
[2016-11-27] MEDS: Gabapentin 100 MG CAPSULE PO SCH ×2 (10:37→20:04)
--- NOTE | 2016-11-27 11:03 | ECHO - Doppler Report ---
Echocardiogram Name: Jaimee Rodriguez Date of Study: 11/27/2016 Date: 1945 Ht: 60.0 in Medical Record#: [id number] Age: 71 Wt: 206.0 lb Gender: Female BSA: 1.89 Order #: [id number] Location: [facility] Room #: [facility] Reading Physician: Colten Issa DO, RICO NAVA Wash Test Checker: Kiana Wilkinson Ordering Physician: Rita Rajan MD Primary Physician: Henrry Mccullough MD Indications: Resp distress Impressions: LVEF 60%. Normal LV chamber size and function. Mild concentric left ventricular hypertrophy. Indeterminate diastolic function. Grossly normal right ventricular structure and function. Grossly the aortic valve appears calcified. Mild aortic stenosis. Mean gradient 13 mmHg. Mild mitral stenosis. Mean gradient 5 mmHg (HR 81 bpm). Mild pulmonary hypertension. Left Ventricular Wall Motion: Rest Echo Findings All wall segments showed normal motion. Findings: Study Quality * Technically sub-optimal due to poor echocardiographic windows. ECG Findings * Probable atrial fibrillation. Left Ventricle * LVEF 60%. * Normal LV chamber size and function. * Mild concentric left ventricular hypertrophy. * Indeterminate diastolic function. Right Ventricle * Grossly normal right ventricular structure and function. Left Atrium * Not well evaluated, but appears severely dilated. Right Atrium * Mildly dilated right atrium. Interatrial Septum * Interatrial septum not well evaluated. Aortic Valve * Aortic valve not well visualized. * Grossly the aortic valve appears calcified. * Trace aortic regurgitation. * Mild aortic stenosis. Mean gradient 13 mmHg. Mitral Valve * Moderate mitral annular calcification. * Trace mitral regurgitation. * Mild mitral stenosis. Mean gradient 5 mmHg (HR 81 bpm). Tricuspid Valve * Normal tricuspid valve structure and function. * Trace tricuspid regurgitation. * Mild pulmonary hypertension. Pulmonic Valve * Pulmonic valve is not well visualized. Aorta * Normally sized aortic root. Pericardium * The pericardium appears normal. IVC * Normal IVC dimensions and inspiratory collapse. Pulmonary Artery * Normal visualized portions of the main pulmonary artery. History Hypertension Diabetes Family History of CAD Congestive Heart Failure Valvular Disease 07/12/2016 a Previous Echo was performed. Measurements: BP: 109/ 57 2D Normal Values RVIDd: 3.10 cm <2.7 cm IVSd: 1.40 cm 0.6 - 1.0 cm LVIDd: 4.80 cm 3.7 - 5.6 cm LVPWd: 1.40 cm 0.6 - 1.1 cm LVIDs: 3.00 cm 1.5 - 3.6 cm AO: 2.60 cm < 4.0 cm LA: 4.40 cm 2.0 - 4.0cm %FS: 37.50 cm >25 % LVOT Diam: 1.90 cm LA volume: 130 Mitral Valve Peak Velocity 1.97 m/sec Mean Velocity:.95 m/sec Peak Grad:16.00 mmHg Mean Grad:4.50 mmHg Pressure Time:101.00 msec Valve Area:2.18 cm2 Peak E:1.83 m/sec LVOT Peak Michael:.80 m/sec Mean Michael:.63 m/sec Peak Grad:3.00 mmHg Mean Grad:2.00 mmHg Aortic Valve Peak Michael:2.59 m/sec Mean Michael:1.78 m/sec Peak Grad:27.00 mmHg Mean Grad:14.00 mmHg Tricuspid Valve TV Regurg Peak Grad: 39.00mmHg TV Regurg Peak Michael: 3.11m/sec Updated by Colten Issa DO, FACRamírez, RICO, FASJUSTIN on 11/27/2016 10:59:08 AM electronically signed on 11/27/2016 11:00:25 AM with status of Final Wall Motion Vega: 1=Normal, 2=Hypokinesis, 3=Akinesis, 4=Dyskinesis, 5=Aneurysmal, 6=Hyperkinetic, X=Not Visualized (Blank)=Missing
--- NOTE | 2016-11-27 14:43 | Pulmonology Progress Note ---
<PadronKostas - Last Filed: 11/27/16 15:04> Date of Encounter: 11/27/16 Time of Encounter: 14:00 Assessment and Plan (1) Acute CHF Current Visit: Yes Status: Acute Acute on chronic diastolic heart failure. Echo 07/11/16: A. Fib. LVEF 65%. Normal LV chamber size w/mild concentric LV hypertorphy. Intermediate diastolic dysfcn due to A. Fib. Patient experienced symptomatic improvement after thoracocentesis today. 27 November: Left Thoracocentesis - 400mL removed; fluid sent for LDH, protein, gram stain, culture 26 Nov 2016: CXR: Cardiomediastinal contours obscured. Probable increased pleural effusions. Worsening diffuse airspace opacities and pleural effusions...CHF vs multifocal PNA vs ARDS. 19 November 2016: Left thoracocentesis - 460mL removed - Thoracocentesis PRN. - Dialysis per nephrology for fluid diuresis. - Continue BiPap. Patient's family has come to an agreement to make the patient DNR-CCA. Will consult palliative care to open discussion with family and re-affirm. Qualifiers: Congestive heart failure type: diastolic Qualified Code(s): I50.31 - Acute diastolic (congestive) heart failure (2) Acute worsening of stage 4 chronic kidney disease Current Visit: No Status: Acute Followed by nephrology; Dr. Bowden. BUN: 20 > 26 > 31 > 19 Cr: 2.38 > 3.16 > 3.83 > 2.72 Temporary HD cath placed by IR in left femoral. Fluid removed 11/27: 3000mL Fluid removed 11/26: 2000mL - continue aranesp Appreciate nephrology following. (3) Pulmonary edema Current Visit: Yes Status: Acute as above Qualifiers: Chronicity: acute Qualified Code(s): J81.0 - Acute pulmonary edema (4) Atrial fibrillation Current Visit: Yes Status: Chronic Currently rate controlled. BP stable at 124/62. - Continue cardizem 30mg TID, Lopressor 12.5mg BID - Discontinue Eliquis until tunneled dialysis cath placed - Continue Lovenox until Eliquis may be restarted Qualifiers: Atrial fibrillation type: chronic Qualified Code(s): I48.2 - Chronic atrial fibrillation (5) COPD (chronic obstructive pulmonary disease) Current Visit: Yes Status: Chronic - Continue: Proventil neb Q4hr PRN AMANDA, Duoneb Q6hr PRN AMANDA Qualifiers: COPD type: unspecified COPD Qualified Code(s): J44.9 - Chronic obstructive pulmonary disease, unspecified (6) DM type 2 (diabetes mellitus, type 2) Current Visit: No Status: Chronic Continue SS insulin and accucheck. Qualifiers: Diabetes mellitus complication status: with kidney complications Diabetes mellitus complication detail: with nephropathy Diabetes mellitus intermediate designer insulin use: without intermediate designer use Qualified Code(s): E11.21 - Type 2 diabetes mellitus with diabetic nephropathy (7) Cirrhosis Current Visit: Yes Status: Chronic Qualifiers: Hepatic cirrhosis type: unspecified hepatic cirrhosis Ascites presence: without ascites Qualified Code(s): K74.60 - Unspecified cirrhosis of liver (8) Obesity Current Visit: No Status: Chronic Qualifiers: Obesity type: due to excess calories Obesity severity: morbid Qualified Code(s): E66.01 - Morbid (severe) obesity due to excess calories (9) LITO on CPAP Current Visit: Yes Status: Chronic (10) DVT prophylaxis Current Visit: No Status: Acute Lovenox Subjective Principal diagnosis: Pulmonary Edema Interval history: No overnight events to report. Patient remains somnolent but is responsive to painful stimuli and loud voice. She will follow basic commands. Family at bedside; they have no questions at this time. Objective PUL Vital signs: Last Vital Signs Temp 96.9 F L 11/27/16 12:51 Pulse 69 11/27/16 13:00 Resp 14 11/27/16 13:00 BP 127/58 11/27/16 13:00 Pulse Ox 99 11/27/16 13:00 General appearance: no acute distress, lethargic Eyes: nonicteric ENT: oropharynx moist Neck: supple Effort: mildly labored Auscultation: bilateral: diminished breath sounds (Left more diminished than right), rales (Left greater than right) Cardiovascular: regular rate and rhythm Gastrointestinal: normoactive bowel sounds, soft, non-tender, non-distended Integumentary: normal Extremities: no cyanosis, pink and warm, edema (trace pedal edema) Musculoskeletal: no deformities pupils equal and round Results - Laboratory Findings CBC and BMP: 11/27/16 03:00 11/27/16 03:00 ABG ABG pH 7.29 pH Units (7.32-7.45) L 11/27/16 06:10 ABG pCO2 71 mmHg (35-45) H* 11/27/16 06:10 ABG pO2 72 mmHg (85-104) L 11/27/16 06:10 ABG O2 Saturation 92 % (95-98) L 11/27/16 06:10 PT/INR, D-dimer PT 13.6 Seconds (9.4-12.1) H 11/25/16 12:07 Abnormal lab findings: Abnormal lab results RBC 3.27 M/mcL (3.82-4.97) L 11/27/16 03:00 Hgb 7.7 g/dL (11.5-15.4) L 11/27/16 03:00 Hct 27.0 % (35.3-44.9) L 11/27/16 03:00 MCV 82.6 fL (83.0-100.0) L 11/27/16 03:00 MCH 23.5 pg (28.0-33.3) L 11/27/16 03:00 MCHC 28.5 g/dL (31.6-35.5) L 11/27/16 03:00 RDW 16.9 % (11.5-14.5) H 11/27/16 03:00 MPV 8.1 fL (9.4-12.4) L 11/27/16 03:00 Band Neutrophils % 7.3 % (0-4) H 11/26/16 03:20 Metamyelocytes % 3.6 % (0) H 11/26/16 03:20 Nucleated RBCs/100 WBC 0.2 /100 WBC (0) H 11/27/16 03:00 Hypochromasia Present (Not Present) A 11/27/16 03:00 Poikilocytosis 1+ (Not Present) A 11/26/16 03:20 Anisocytosis 1+ (Not Present) A 11/27/16 03:00 PT 13.6 Seconds (9.4-12.1) H 11/25/16 12:07 ABG pH 7.29 pH Units (7.32-7.45) L 11/27/16 06:10 ABG pCO2 71 mmHg (35-45) H* 11/27/16 06:10 ABG pO2 72 mmHg (85-104) L 11/27/16 06:10 ABG HCO3 34.1 mEQ/L (21-27) H 11/27/16 06:10 ABG Total CO2 36.3 mEq/L (20-26) H 11/27/16 06:10 ABG O2 Saturation 92 % (95-98) L 11/27/16 06:10 ABG Base Excess 6.2 mEq/L (-2.0 to 3.0) H 11/27/16 06:10 Carbon Dioxide 31 mEq/L (19-29) H 11/27/16 03:00 Creatinine 2.72 mg/dL (0.57-1.11) H 11/27/16 03:00 Est GFR ( Amer) 21 (> 60) L 11/27/16 03:00 Est GFR (Non-Af Amer) 17 (> 60) L 11/27/16 03:00 Glucose 143 mg/dL (70-99) H 11/27/16 03:00 POC Glucose 134 (58-89) H 11/27/16 12:27 Iron 26 mcg/dL (50-170) L 11/23/16 04:27 % Saturation 10 % (15-50) L 11/23/16 04:27 B-Natriuretic Peptide 878 pg/mL (0-100) H 11/26/16 03:21 Albumin 2.4 g/dL (3.5-5.0) L 11/25/16 05:55 Globulin 3.8 g/dL (2.4-3.5) H 11/25/16 05:55 Albumin/Globulin Ratio 0.6 (1.1-2.2) L 11/25/16 05:55 Urine Protein 30 mg/dL (Neg-Trace) H 11/12/16 07:58 Urine Blood Small (Negative) H 11/12/16 07:58 Ur Leukocyte Esterase Small (Negative) H 11/12/16 07:58 Urine Microscopic RBC 5-15 per hpf (0-3) H 11/12/16 07:58 Urine Microscopic WBC 5-15 per hpf (0-3) H 11/12/16 07:58 Ur Squamous Epith Cells Many per lpf (None-Few) H 11/12/16 07:58 Ur Culture Indicated? YES (NO) A 11/12/16 07:58 - Clinical Findings Intake & Output: Intake & Output 11/26/16 11/27/16 11/27/16 23:59 07:59 15:59 Intake Total 0 / 0 0 / 0 600 / 600 Output Total 2600 / 2600 0 / 0 6600 / 6600 Balance -2600 / -2600 0 / 0 -6000 / -6000 Weight 93.531 kg Consult Discharge Plan - Plan Referrals: Henrry Mccullough MD [Primary Care Provider] - (Web requested 11/14/16) <Ulices Luis - Last Filed: 11/27/16 16:26> Date of Encounter: 11/27/16 Objective PUL Vital signs: Last Vital Signs Temp 96.9 F L 11/27/16 12:51 Pulse 73 11/27/16 14:00 Resp 16 11/27/16 14:00 BP 137/74 11/27/16 14:00 Pulse Ox 100 11/27/16 15:30 Results - Laboratory Findings CBC and BMP: 11/27/16 03:00 11/27/16 03:00 ABG ABG pH 7.29 pH Units (7.32-7.45) L 11/27/16 06:10 ABG pCO2 71 mmHg (35-45) H* 11/27/16 06:10 ABG pO2 72 mmHg (85-104) L 11/27/16 06:10 ABG O2 Saturation 92 % (95-98) L 11/27/16 06:10 PT/INR, D-dimer PT 13.6 Seconds (9.4-12.1) H 11/25/16 12:07 Abnormal lab findings: Abnormal lab results RBC 3.27 M/mcL (3.82-4.97) L 11/27/16 03:00 Hgb 7.7 g/dL (11.5-15.4) L 11/27/16 03:00 Hct 27.0 % (35.3-44.9) L 11/27/16 03:00 MCV 82.6 fL (83.0-100.0) L 11/27/16 03:00 MCH 23.5 pg (28.0-33.3) L 11/27/16 03:00 MCHC 28.5 g/dL (31.6-35.5) L 11/27/16 03:00 RDW 16.9 % (11.5-14.5) H 11/27/16 03:00 MPV 8.1 fL (9.4-12.4) L 11/27/16 03:00 Band Neutrophils % 7.3 % (0-4) H 11/26/16 03:20 Metamyelocytes % 3.6 % (0) H 11/26/16 03:20 Nucleated RBCs/100 WBC 0.2 /100 WBC (0) H 11/27/16 03:00 Hypochromasia Present (Not Present) A 11/27/16 03:00 Poikilocytosis 1+ (Not Present) A 11/26/16 03:20 Anisocytosis 1+ (Not Present) A 11/27/16 03:00 PT 13.6 Seconds (9.4-12.1) H 11/25/16 12:07 ABG pH 7.29 pH Units (7.32-7.45) L 11/27/16 06:10 ABG pCO2 71 mmHg (35-45) H* 11/27/16 06:10 ABG pO2 72 mmHg (85-104) L 11/27/16 06:10 ABG HCO3 34.1 mEQ/L (21-27) H 11/27/16 06:10 ABG Total CO2 36.3 mEq/L (20-26) H 11/27/16 06:10 ABG O2 Saturation 92 % (95-98) L 11/27/16 06:10 ABG Base Excess 6.2 mEq/L (-2.0 to 3.0) H 11/27/16 06:10 Carbon Dioxide 31 mEq/L (19-29) H 11/27/16 03:00 Creatinine 2.72 mg/dL (0.57-1.11) H 11/27/16 03:00 Est GFR ( Amer) 21 (> 60) L 11/27/16 03:00 Est GFR (Non-Af Amer) 17 (> 60) L 11/27/16 03:00 Glucose 143 mg/dL (70-99) H 11/27/16 03:00 POC Glucose 134 (58-89) H 11/27/16 12:27 Iron 26 mcg/dL (50-170) L 11/23/16 04:27 % Saturation 10 % (15-50) L 11/23/16 04:27 B-Natriuretic Peptide 878 pg/mL (0-100) H 11/26/16 03:21 Albumin 2.4 g/dL (3.5-5.0) L 11/25/16 05:55 Globulin 3.8 g/dL (2.4-3.5) H 11/25/16 05:55 Albumin/Globulin Ratio 0.6 (1.1-2.2) L 11/25/16 05:55 Urine Protein 30 mg/dL (Neg-Trace) H 11/12/16 07:58 Urine Blood Small (Negative) H 11/12/16 07:58 Ur Leukocyte Esterase Small (Negative) H 11/12/16 07:58 Urine Microscopic RBC 5-15 per hpf (0-3) H 11/12/16 07:58 Urine Microscopic WBC 5-15 per hpf (0-3) H 11/12/16 07:58 Ur Squamous Epith Cells Many per lpf (None-Few) H 11/12/16 07:58 Ur Culture Indicated? YES (NO) A 11/12/16 07:58 - Clinical Findings Intake & Output: Intake & Output 11/27/16 11/27/16 11/27/16 07:59 15:59 23:59 Intake Total 0 / 0 600 / 600 Output Total 0 / 0 6600 / 6600 Balance 0 / 0 -6000 / -6000 Weight 93.531 kg - Attending Attestation I examined this patient and my medical decision-making was reviewed with the PREDATORY ANIMAL TRAPPER/PA/Advanced Practice Nurse/Resident Physician. I agree with the documented findings, disposition and treatment plan as described except to the extent set forth below. Patient seen and examined. Labs, radiology, chart personally reviewed. Agree with resident's history and physical, assessment, plan with following comments: AIRPORT TRAFFIC CONTROLLER: Patient follows commands, however patient is confused and this is multifactorial from underlying hepatic renal disease. Avoid any sedative such as Ativan and check ammonia level with hemodialysis would be helpful. Pulmonary: Patient remained on BiPAP dependent and I had a family meeting her daughters, and this time the patient CODE STATUS, change to DNR and a and may be there would agree for only noninvasive ventilation, awaiting for the family and their final decision. We will consult palliative and that is their final decision. Ultrasound at the bedside was done and there is a pocket of fluid on the left side which was drained successfully. Cardiovascular: stable GI: Nutrition per dietary and GI prophylaxis per routine. NPO for now because of the BiPAP. Heme: DVT prophylaxis per routine ID: WBC is normal. Renal; Discussed with nephrology and agree with fluid removal Endorcine: blood glucose is monitored Lines: all lines checked and no evidence of infections Skin: skin care to prevent pressure ulcers per nursing routine care Poor prognosis.
--- NOTE | 2016-11-27 14:48 | Procedure Note ---
<Kostas Padron - Last Filed: 11/27/16 14:45> Date of procedure: 11/27/16 Pre-op diagnosis: Left pleural effusion Post-op diagnosis: same Procedure: Resident: Kostas Padron DO Attending: Dr. Luis Correct patient, procedure, site, positioning, and equipment were verified. The patient remained on BiPap and placed in right lateral decubitis position. Head of bed was then raised to apx 60deg. The patients left side was prepped and draped in a sterile manner after the appropriate infiltration level was confirmed by ultrasound. 1% lidocaine was used anesthetize the surrounding skin. A finder needle was then used to locate fluid and clear yellow fluid was obtained. A 10-blade scalpel used to make the incision. The thoracentesis catheter was then threaded without difficulty. The patient had 400mL of clear yellow fluid removed. Dr. Luis was present for the entire procedure. A post- procedure chest x-ray was ordered and the fluid will be sent for LDH, protein, gram stain, and culture studies. Estimated Blood Loss: 2mL The patient tolerated the procedure well and there were no complications. Anesthesia: local Surgeon: Ulices Luis Flame Annealing Machine Operator: Kostas Padron Estimated blood loss (cc): 2 IV fluids (cc): 0 Urine output (cc): 0 Pathology: other (LDH, protein, gram stain, culture) Condition: stable Disposition: ICU <Ulices Luis - Last Filed: 11/27/16 16:21> Procedure: I have personally supervised Dr. Padron performing thoracentesis without immediate complications.
[2016-11-27] MEDS: Aspirin 81 MG TAB.CHEW PO SCH (16:08)
[2016-11-27] MEDS: Folic Acid 1 MG TABLET PO SCH (16:09)
[2016-11-27] MEDS: *HR* OxyCODONE Immed Rel 5 MG TABLET PO PRN (20:04)
[2016-11-27] MEDS: Insulin DETEMIR 100 UNIT/ML X5UNITS SQ SCH (20:10)
[2016-11-27] MEDS: *HR* LORazepam 0.5 MG TABLET PO PRN (20:11)
[2016-11-27] MEDS ORDERED: *HR* Heparin 5,000 UNIT/ML VIAL SQ SCH (22:00)
[2016-11-28] MEDS: *HR* OxyCODONE Immed Rel 5 MG TABLET PO PRN (02:29)
[2016-11-28] MEDS: Ipratropium/Albuterol Neb 3 ML IH SCH ×4 (04:16→22:36)
[2016-11-28 06:32] LABS: Basophils % 0.2 %; Eosinophils # 0.2 K/mcL (0.0-0.6); Eosinophils % 2.4 %; Hematocrit 29.7 % (35.3-44.9); Hemoglobin 8.8 g/dL (11.5-15.4); Immature Granulocytes % 2.5 % (0-4); Lymphocytes # 0.7 K/mcL (0.6-4.6); Mean Corpuscular HGB Conc 29.6 g/dL (31.6-35.5); Mean Corpuscular Hemoglobin 24.9 pg (28.0-33.3); Mean Corpuscular Volume 83.9 fL (83.0-100.0); Mean Platelet Volume 8.1 fL (9.4-12.4); Monocytes % 10.3 %; Neutrophils # 7.2 K/mcL (1.6-8.9); Platelet Count 227 K/mcL (140-400); Red Blood Count 3.54 M/mcL (3.82-4.97); Red Cell Distribution Width 17.4 % (11.5-14.5); Segmented Neutrophils % 77.6 %
[2016-11-28 06:46] LABS: Calcium 9.1 mg/dL (8.6-10.8); Potassium 4.1 mEq/L (3.5-4.5)
[2016-11-28] MEDS: Lactulose Oral Soln 20 GM/30 ML UDC PO SCH ×4 (08:40→21:57)
[2016-11-28] MEDS: Gabapentin 100 MG CAPSULE PO SCH ×2 (08:41→21:57)
[2016-11-28] MEDS: Sucralfate 1 GM TABLET PO SCH ×2 (08:41→16:15)
[2016-11-28] MEDS: Aspirin 81 MG TAB.CHEW PO SCH (08:41)
[2016-11-28] MEDS: Folic Acid 1 MG TABLET PO SCH (08:42)
[2016-11-28] MEDS: Insulin LISPRO 300 UNITS/3 ML VIAL SQ SCH ×4 (08:42→21:46)
--- NOTE | 2016-11-28 09:20 | Nephrology Progress Note ---
Date of Encounter: 11/28/16 Time of Encounter: 09:05 - Assessment and Plan (1) Acute worsening of stage 4 chronic kidney disease Current Visit: No Status: Acute MELECIO/CKD, acute on chronic diastolic CHF. Baseline creat 1.4. Creat 3.41. No documented urine output. High flow O2. Has temporary dialysis catheter in left CFV. Apparently, respiratory status improved following UF and thorocentesis x 400cc left lung yesterday. Will do HD today, orders given. Subjective Principal diagnosis: Pulmonary Edema Interval history: On high flow O2, states does not feel good, is not able to say why when asked. Objective - Vital Signs Vital signs: Vital Signs Temp Pulse Resp BP Pulse Ox 11/28/16 09:02 74 22 107/53 94 11/28/16 08:30 98.0 F 79 24 129/74 94 11/28/16 07:00 72 24 124/64 93 11/28/16 06:00 71 19 119/65 97 11/28/16 05:00 73 16 122/64 98 11/28/16 04:37 97.4 F L 11/28/16 04:16 16 98/44 98 11/28/16 04:00 73 18 98/44 98 11/28/16 03:00 67 19 95/67 97 11/28/16 02:00 68 26 118/65 97 11/28/16 01:00 64 22 106/57 97 11/28/16 00:31 97.6 F 11/28/16 00:19 21 107/66 97 11/28/16 00:00 65 15 107/66 96 11/27/16 23:00 62 25 100/53 98 11/27/16 22:00 68 25 104/50 99 11/27/16 21:51 17 119/56 99 11/27/16 21:00 69 17 118/54 99 11/27/16 20:26 74 11/27/16 20:19 98 F 11/27/16 20:00 72 26 130/69 100 11/27/16 19:00 67 20 115/59 99 11/27/16 18:00 66 22 116/67 99 11/27/16 17:00 74 20 113/59 99 11/27/16 16:00 96.8 F L 71 20 135/72 100 11/27/16 15:30 100 11/27/16 15:00 73 20 121/56 11/27/16 14:00 73 16 137/74 95 11/27/16 13:00 69 14 127/58 99 11/27/16 12:51 96.9 F L 11/27/16 12:00 96.7 F L 76 20 120/58 98 11/27/16 11:45 98.2 F 14 124/62 11/27/16 11:40 106/55 11/27/16 11:25 119/59 11/27/16 11:10 114/51 11/27/16 11:00 75 11/27/16 10:57 98.2 F 73 12 116/56 98 11/27/16 10:55 118/62 11/27/16 10:42 98.2 F 77 15 121/60 96 11/27/16 10:40 122/59 11/27/16 10:25 127/60 11/27/16 10:10 127/57 11/27/16 10:00 73 12 134/77 98 11/27/16 09:55 130/64 11/27/16 09:40 98.8 F 19 136/80 11/27/16 09:35 18 97 Intake and Output 11/27/16 11/28/16 11/28/16 23:59 07:59 15:59 Intake Total 350 / 350 0 / 0 Output Total 0 / 0 0 / 0 Balance 350 / 350 0 / 0 Intake: Oral 0 / 0 0 / 0 Blood Product 350 / 350 Rbcs Leuko Poor As-1 350 / 350 Unit [id number] Output: Urine 0 / 0 0 / 0 Other: # Bowel Movements 0 Weight 91.535 kg Blood Glucose* 139 109 Patient Weight 11/28/16 23:59 Weight 91.535 kg - General Appearance General appearance: Present: well-developed, well-nourished, appears started age EENT: Present: mucous membranes moist Neck: Present: no JVD Additional Comments: diminished throughout Cardiology: Present: edema, irregular rhythm Additional Comments: mild pitting edema LE Gastrointestinal: Present: hypoactive bowel sounds, no tenderness, no guarding Integumentary: Present: warm and dry Psychiatric: Present: cooperative - Lab 11/28/16 06:25 11/28/16 06:25 Most recent lab results ABG pH 7.29 pH Units (7.32-7.45) L 11/27/16 06:10 ABG pCO2 71 mmHg (35-45) H* 11/27/16 06:10 ABG pO2 72 mmHg (85-104) L 11/27/16 06:10 ABG HCO3 34.1 mEQ/L (21-27) H 11/27/16 06:10 ABG O2 Saturation 92 % (95-98) L 11/27/16 06:10 Calcium 9.1 mg/dL (8.6-10.8) 11/28/16 06:25 Phosphorus 3.3 mg/dL (2.3-4.7) 11/22/16 05:11 - VTE Documentation of Mechanical Device: Venous foot pump, device Consult Discharge Plan - Plan Referrals: Henrry Mccullough MD [Primary Care Provider] - (Web requested 11/14/16)
[2016-11-28] MEDS ORDERED: 0.9 % Sodium Chloride 250 ML IVC PRN ×2 (09:21→17:48)
[2016-11-28] MEDS ORDERED: *HR* Heparin 10,000 UNIT/10 ML VIAL IV PRN (09:21)
[2016-11-28] MEDS ORDERED: 0.9 % Sodium Chloride 1,000 ML PRIME SCH (09:30)
[2016-11-28] MEDS ORDERED: 0.9 % Sodium Chloride 2,000 ML ONE (10:11)
--- NOTE | 2016-11-28 11:22 | Palliative Progress Note ---
<Kobe Batres - Last Filed: 11/28/16 11:20> Date of Encounter: 11/28/16 Time of Encounter: 11:20 - Assessment and plan (1) Goals of care, counseling/discussion Current Visit: No Status: Acute Assessment and plan: Clarified with patient and her daughter about her code status and she confirms she would like aggressive care if she were to arrest, but does not want to be on mechanical ventilator shelter; will maintain FULL CODE status Will await patient's NOK Radha to arrive in order to further discuss consideration of PEG tube placement Patient re-confirmed her desire to not want a chest tube as she had a previous bad experience (2) Dysphagia Current Visit: No Status: Chronic Assessment and plan: Speech therapist has evaluated her with MBS last week and started her nectar thick liquids, however her intake has been inadequate As above, will await for other daughter to arrive to discuss if PEG tube placement is appropriate Qualifiers: Dysphagia type: unspecified Qualified Code(s): R13.10 - Dysphagia, unspecified - Time Spent With Patient Total time spent is greater than 50% in coordination of care (as documented) at patient's floor/unit and/or counseling patient: - Subjective Interval history: Pt seen and examined. Palliative was originally consulted last week but had signed off, so this is a re-consult note. She is comfortable and states her breathing has improved the last several days since getting a thoracentesis. Daughter Michelle is at bedside and states her older sister and patient's NOK, Radha, will be arriving shortly. Patient does confirm that her appetite has been poor and made worse by her difficulty with swallowing. She has been on thickened liquids for the last several weeks and has been having poor intake. She complains of chronic low back pain but denies any chest pain, nausea, vomiting, diarrhea, or constipation. - Constitutional Vitals: Abnormal lab results RBC 3.54 M/mcL (3.82-4.97) L 11/28/16 06:25 Hgb 8.8 g/dL (11.5-15.4) L 11/28/16 06:25 Hct 29.7 % (35.3-44.9) L 11/28/16 06:25 MCH 24.9 pg (28.0-33.3) L 11/28/16 06:25 MCHC 29.6 g/dL (31.6-35.5) L 11/28/16 06:25 RDW 17.4 % (11.5-14.5) H 11/28/16 06:25 MPV 8.1 fL (9.4-12.4) L 11/28/16 06:25 Band Neutrophils % 7.3 % (0-4) H 11/26/16 03:20 Metamyelocytes % 3.6 % (0) H 11/26/16 03:20 Nucleated RBCs/100 WBC 0.2 /100 WBC (0) H 11/27/16 03:00 Hypochromasia Present (Not Present) A 11/27/16 03:00 Poikilocytosis 1+ (Not Present) A 11/26/16 03:20 Anisocytosis 1+ (Not Present) A 11/27/16 03:00 PT 13.6 Seconds (9.4-12.1) H 11/25/16 12:07 ABG pH 7.29 pH Units (7.32-7.45) L 11/27/16 06:10 ABG pCO2 71 mmHg (35-45) H* 11/27/16 06:10 ABG pO2 72 mmHg (85-104) L 11/27/16 06:10 ABG HCO3 34.1 mEQ/L (21-27) H 11/27/16 06:10 ABG Total CO2 36.3 mEq/L (20-26) H 11/27/16 06:10 ABG O2 Saturation 92 % (95-98) L 11/27/16 06:10 ABG Base Excess 6.2 mEq/L (-2.0 to 3.0) H 11/27/16 06:10 Carbon Dioxide 31 mEq/L (19-29) H 11/28/16 06:25 BUN 27 mg/dL (7-20) H 11/28/16 06:25 Creatinine 3.41 mg/dL (0.57-1.11) H 11/28/16 06:25 Est GFR ( Amer) 16 (> 60) L 11/28/16 06:25 Est GFR (Non-Af Amer) 13 (> 60) L 11/28/16 06:25 Glucose 112 mg/dL (70-99) H 11/28/16 06:25 POC Glucose 109 (58-89) H 11/28/16 07:32 Iron 26 mcg/dL (50-170) L 11/23/16 04:27 % Saturation 10 % (15-50) L 11/23/16 04:27 B-Natriuretic Peptide 878 pg/mL (0-100) H 11/26/16 03:21 Albumin 2.4 g/dL (3.5-5.0) L 11/25/16 05:55 Globulin 3.8 g/dL (2.4-3.5) H 11/25/16 05:55 Albumin/Globulin Ratio 0.6 (1.1-2.2) L 11/25/16 05:55 Urine Protein 30 mg/dL (Neg-Trace) H 11/12/16 07:58 Urine Blood Small (Negative) H 11/12/16 07:58 Ur Leukocyte Esterase Small (Negative) H 11/12/16 07:58 Urine Microscopic RBC 5-15 per hpf (0-3) H 11/12/16 07:58 Urine Microscopic WBC 5-15 per hpf (0-3) H 11/12/16 07:58 Ur Squamous Epith Cells Many per lpf (None-Few) H 11/12/16 07:58 Ur Culture Indicated? YES (NO) A 11/12/16 07:58 General appearance: Present: cooperative, no acute distress, obese - Head Head exam: Present: atraumatic, normal inspection, normocephalic - Eye Eye exam: Present: PERRL, sclera anicteric - Respiratory Respiratory exam: Present: decreased breath sounds, rales. Absent: respiratory distress - Cardiovascular Cardiovascular exam: Present: RRR, +S1, +S2 - GI/Abdominal GI/Abdominal exam: Present: soft. Absent: distended, guarding, rebound, rigid, tenderness - Extremities Exam Extremities exam: Present: pedal edema. Absent: tenderness - Neurological Exam Neurological exam: Present: alert, no focal deficits. Absent: oriented X3 (A/ Ox2, knew place and self but thought the year was 2019), facial droop, speech deficit - Psychiatric Psychiatric exam: Present: normal affect, normal mood Palliative Quality Palliative Quality: Screen for Code Status: Yes, Screen for Goals of Care: Yes, Screen for Pain: Yes, If Pain Regimen Started, Initiate Bowel Regimen: Yes, Screen for Nausea/Vomitting: Yes Code Status: 11/27/16 18:09 FULL [Resuscitation Status: Active] [RES] Routine Comment: Do Not Intubate Resuscitation Status: Full Code - Labs CBC & Chem 7: 11/28/16 06:25 11/28/16 06:25 Labs: Laboratory Results - last 24 hr 11/27/16 11/27/16 11/27/16 09:14 12:27 14:30 WBC RBC Hgb Hct MCV MCH MCHC RDW Plt Count MPV Immature Gran % Seg Neutrophils % Lymphocytes % Monocytes % Eosinophils % Basophils % Neutrophils # Lymphocytes # Monocytes # Eosinophils # Basophils # Sodium Potassium Chloride Carbon Dioxide BUN Creatinine Est GFR ( Amer) Est GFR (Non-Af Amer) BUN/Creatinine Ratio Glucose POC Glucose 134 H Calculated Osmolality Calcium Pleural Total Protein Pleural LDH 119 Crossmatch See Detail 11/27/16 11/27/16 11/27/16 14:30 16:28 19:45 WBC RBC Hgb Hct MCV MCH MCHC RDW Plt Count MPV Immature Gran % Seg Neutrophils % Lymphocytes % Monocytes % Eosinophils % Basophils % Neutrophils # Lymphocytes # Monocytes # Eosinophils # Basophils # Sodium Potassium Chloride Carbon Dioxide BUN Creatinine Est GFR ( Amer) Est GFR (Non-Af Amer) BUN/Creatinine Ratio Glucose POC Glucose 143 H 139 H Calculated Osmolality Calcium Pleural Total Protein 2.0 Pleural LDH Crossmatch 11/28/16 11/28/16 11/28/16 06:25 06:25 07:32 WBC 9.3 RBC 3.54 L Hgb 8.8 L Hct 29.7 L MCV 83.9 MCH 24.9 L MCHC 29.6 L RDW 17.4 H Plt Count 227 MPV 8.1 L Immature Gran % 2.5 Seg Neutrophils % 77.6 Lymphocytes % 7.0 Monocytes % 10.3 Eosinophils % 2.4 Basophils % 0.2 Neutrophils # 7.2 Lymphocytes # 0.7 Monocytes # 1.0 Eosinophils # 0.2 Basophils # 0.0 Sodium 137 Potassium 4.1 Chloride 100 Carbon Dioxide 31 H BUN 27 H Creatinine 3.41 H Est GFR ( Amer) 16 L Est GFR (Non-Af Amer) 13 L BUN/Creatinine Ratio 8 Glucose 112 H POC Glucose 109 H Calculated Osmolality 290 Calcium 9.1 Pleural Total Protein Pleural LDH Crossmatch - Impressions Impressions Guidance Needle Placement Ultrasound 11/26/16 00:00 IMPRESSION: Ultrasound-guided left common femoral non tunneled dialysis catheter placement. D/ / 11/26/2016 15:50:19 David Hammond MD / ancelmo Interpreting Provider: David Hammond MD Insertion Non-Tunneled Catheter 11/26/16 09:21 IMPRESSION: Ultrasound-guided left common femoral non tunneled dialysis catheter placement. D/ / 11/26/2016 15:50:19 David Hammond MD / ancelmo Interpreting Provider: David aHmmond MD Chest X-Ray 11/27/16 15:02 IMPRESSION: Interval decrease in left pleural effusion with no pneumothorax following thoracentesis. D/ / Cameron John MD / Cameron John MD Interpreting Provider: Cameron John MD - ABG Interpretation ABG results: ABG ABG pH 7.29 pH Units (7.32-7.45) L 11/27/16 06:10 ABG pCO2 71 mmHg (35-45) H* 11/27/16 06:10 ABG pO2 72 mmHg (85-104) L 11/27/16 06:10 ABG O2 Saturation 92 % (95-98) L 11/27/16 06:10 PT/INR, D-dimer PT 13.6 Seconds (9.4-12.1) H 11/25/16 12:07 Consult Discharge Plan - Plan Referrals: Henrry Mccullough MD [Primary Care Provider] - (Web requested 11/14/16) <Connor Nicole - Last Filed: 11/28/16 11:53> Date of Encounter: 11/28/16 - Time Spent With Patient Total time spent is greater than 50% in coordination of care (as documented) at patient's floor/unit and/or counseling patient: - Constitutional Vitals: Abnormal lab results RBC 3.54 M/mcL (3.82-4.97) L 11/28/16 06:25 Hgb 8.8 g/dL (11.5-15.4) L 11/28/16 06:25 Hct 29.7 % (35.3-44.9) L 11/28/16 06:25 MCH 24.9 pg (28.0-33.3) L 11/28/16 06:25 MCHC 29.6 g/dL (31.6-35.5) L 11/28/16 06:25 RDW 17.4 % (11.5-14.5) H 11/28/16 06:25 MPV 8.1 fL (9.4-12.4) L 11/28/16 06:25 Band Neutrophils % 7.3 % (0-4) H 11/26/16 03:20 Metamyelocytes % 3.6 % (0) H 11/26/16 03:20 Nucleated RBCs/100 WBC 0.2 /100 WBC (0) H 11/27/16 03:00 Hypochromasia Present (Not Present) A 11/27/16 03:00 Poikilocytosis 1+ (Not Present) A 11/26/16 03:20 Anisocytosis 1+ (Not Present) A 11/27/16 03:00 PT 13.6 Seconds (9.4-12.1) H 11/25/16 12:07 ABG pH 7.29 pH Units (7.32-7.45) L 11/27/16 06:10 ABG pCO2 71 mmHg (35-45) H* 11/27/16 06:10 ABG pO2 72 mmHg (85-104) L 11/27/16 06:10 ABG HCO3 34.1 mEQ/L (21-27) H 11/27/16 06:10 ABG Total CO2 36.3 mEq/L (20-26) H 11/27/16 06:10 ABG O2 Saturation 92 % (95-98) L 11/27/16 06:10 ABG Base Excess 6.2 mEq/L (-2.0 to 3.0) H 11/27/16 06:10 Carbon Dioxide 31 mEq/L (19-29) H 11/28/16 06:25 BUN 27 mg/dL (7-20) H 11/28/16 06:25 Creatinine 3.41 mg/dL (0.57-1.11) H 11/28/16 06:25 Est GFR ( Amer) 16 (> 60) L 11/28/16 06:25 Est GFR (Non-Af Amer) 13 (> 60) L 11/28/16 06:25 Glucose 112 mg/dL (70-99) H 11/28/16 06:25 POC Glucose 109 (58-89) H 11/28/16 07:32 Iron 26 mcg/dL (50-170) L 11/23/16 04:27 % Saturation 10 % (15-50) L 11/23/16 04:27 B-Natriuretic Peptide 878 pg/mL (0-100) H 11/26/16 03:21 Albumin 2.4 g/dL (3.5-5.0) L 11/25/16 05:55 Globulin 3.8 g/dL (2.4-3.5) H 11/25/16 05:55 Albumin/Globulin Ratio 0.6 (1.1-2.2) L 11/25/16 05:55 Urine Protein 30 mg/dL (Neg-Trace) H 11/12/16 07:58 Urine Blood Small (Negative) H 11/12/16 07:58 Ur Leukocyte Esterase Small (Negative) H 11/12/16 07:58 Urine Microscopic RBC 5-15 per hpf (0-3) H 11/12/16 07:58 Urine Microscopic WBC 5-15 per hpf (0-3) H 11/12/16 07:58 Ur Squamous Epith Cells Many per lpf (None-Few) H 11/12/16 07:58 Ur Culture Indicated? YES (NO) A 11/12/16 07:58 - Attending Attestation I examined this patient and my medical decision-making was reviewed with the Resident Physician. I agree with the documented findings, disposition and treatment plan as described except to the extent set forth below. The patient has maintained in the past that she did not want to be a long-term intubation. Did wish to have aggressive care. Should a patent tube has now been brought up as the patient is unable to maintain the degree of pressure that she requires to get well. We will discuss this further with the rest of the family is here this afternoon. She has not as of yet done advanced directives I do not believe we will check up on that further this had been planned to be done before. Palliative Quality Code Status: 11/27/16 18:09 FULL [Resuscitation Status: Active] [RES] Routine Comment: Do Not Intubate Resuscitation Status: Full Code - Labs CBC & Chem 7: 11/28/16 06:25 11/28/16 06:25 Labs: Laboratory Results - last 24 hr 11/27/16 11/27/16 11/27/16 09:14 12:27 14:30 WBC RBC Hgb Hct MCV MCH MCHC RDW Plt Count MPV Immature Gran % Seg Neutrophils % Lymphocytes % Monocytes % Eosinophils % Basophils % Neutrophils # Lymphocytes # Monocytes # Eosinophils # Basophils # Sodium Potassium Chloride Carbon Dioxide BUN Creatinine Est GFR ( Amer) Est GFR (Non-Af Amer) BUN/Creatinine Ratio Glucose POC Glucose 134 H Calculated Osmolality Calcium Pleural Total Protein Pleural LDH 119 Crossmatch See Detail 11/27/16 11/27/16 11/27/16 14:30 16:28 19:45 WBC RBC Hgb Hct MCV MCH MCHC RDW Plt Count MPV Immature Gran % Seg Neutrophils % Lymphocytes % Monocytes % Eosinophils % Basophils % Neutrophils # Lymphocytes # Monocytes # Eosinophils # Basophils # Sodium Potassium Chloride Carbon Dioxide BUN Creatinine Est GFR ( Amer) Est GFR (Non-Af Amer) BUN/Creatinine Ratio Glucose POC Glucose 143 H 139 H Calculated Osmolality Calcium Pleural Total Protein 2.0 Pleural LDH Crossmatch 11/28/16 11/28/16 11/28/16 06:25 06:25 07:32 WBC 9.3 RBC 3.54 L Hgb 8.8 L Hct 29.7 L MCV 83.9 MCH 24.9 L MCHC 29.6 L RDW 17.4 H Plt Count 227 MPV 8.1 L Immature Gran % 2.5 Seg Neutrophils % 77.6 Lymphocytes % 7.0 Monocytes % 10.3 Eosinophils % 2.4 Basophils % 0.2 Neutrophils # 7.2 Lymphocytes # 0.7 Monocytes # 1.0 Eosinophils # 0.2 Basophils # 0.0 Sodium 137 Potassium 4.1 Chloride 100 Carbon Dioxide 31 H BUN 27 H Creatinine 3.41 H Est GFR ( Amer) 16 L Est GFR (Non-Af Amer) 13 L BUN/Creatinine Ratio 8 Glucose 112 H POC Glucose 109 H Calculated Osmolality 290 Calcium 9.1 Pleural Total Protein Pleural LDH Crossmatch - Impressions Impressions Guidance Needle Placement Ultrasound 11/26/16 00:00 IMPRESSION: Ultrasound-guided left common femoral non tunneled dialysis catheter placement. D/ : / 11/26/2016 15:50:19 David Hammond MD / [email or web address] Interpreting Provider: David Hammond MD Insertion Non-Tunneled Catheter 11/26/16 09:21 IMPRESSION: Ultrasound-guided left common femoral non tunneled dialysis catheter placement. D/ : / 11/26/2016 15:50:19 David Hammond MD / [email or web address] Interpreting Provider: David Hammond MD Chest X-Ray 11/27/16 15:02
[2016-11-28] MEDS: *HR* FentaNYL (PF) 100 MCG/2 ML VIAL IV PRN ×2 (11:36→15:11)
--- NOTE | 2016-11-28 13:46 | Event Note ---
Date of Encounter: 11/28/16 Time of Encounter: 13:43 Met with family, both daughters, and with patient regarding CODE STATUS, and possibility of tube feeds. Patient has been clear throughout that she does not wish to be on a machine long-term, but is restricted and full aggressive care including cardiopulmonary resuscitation if needed. She is hungry and wishes to eat. She U team has reinstituted a diet for her, wishes to give that a try to see if she can get in enough nutrition by mouth to not need a PEG tube. If she needs a PEG tube for supplementation, she is okay with that. Made the statement with her family in attendance. Everybody understands. Have informed the ICU team.
--- NOTE | 2016-11-28 13:54 | Pulmonology Progress Note ---
<Kostas Padron - Last Filed: 11/28/16 14:46> Date of Encounter: 11/28/16 Time of Encounter: 08:45 Assessment and Plan (1) Acute CHF Current Visit: Yes Status: Acute Acute on chronic diastolic heart failure. Echo 07/11/16: A. Fib. LVEF 65%. Normal LV chamber size w/mild concentric LV hypertorphy. Intermediate diastolic dysfcn due to A. Fib. Patient experienced symptomatic improvement after thoracocentesis today. 27 November: Left Thoracocentesis - 400mL removed; fluid sent for LDH, protein, gram stain, culture 26 Nov 2016: CXR: Cardiomediastinal contours obscured. Probable increased pleural effusions. Worsening diffuse airspace opacities and pleural effusions...CHF vs multifocal PNA vs ARDS. 19 November 2016: Left thoracocentesis - 460mL removed - Dialysis per nephrology for fluid diuresis. - Continue BiPap. - Anticipate transfer to step down today. Per palliative care, the patient, and the patient's family: Patient is FULL CODE. She wishes to be intubated in the acute setting but does not wish to be intubated alf. The duration of "alf" is to be agreed upon by her family. Additionally, patient expresses desire to eat. She prefers to attempt PO intake. If she fails, she is amenable to PEG tube placement. Qualifiers: Congestive heart failure type: diastolic Qualified Code(s): I50.31 - Acute diastolic (congestive) heart failure (2) Acute worsening of stage 4 chronic kidney disease Current Visit: No Status: Acute Followed by nephrology; Dr. Bowden. BUN: 20 > 26 > 31 > 19 > 27 Cr: 2.38 > 3.16 > 3.83 > 2.72 > 3.41 Temporary HD cath placed by IR in left femoral. HD Fluid removal 11/28: 3000mL HD Fluid removed 11/27: 3000mL HD Fluid removed 11/26: 2000mL - continue aranesp - continue HD Appreciate nephrology following. (3) Pulmonary edema Current Visit: Yes Status: Acute as above Qualifiers: Chronicity: acute Qualified Code(s): J81.0 - Acute pulmonary edema (4) Atrial fibrillation Current Visit: Yes Status: Chronic Currently rate controlled @ HR 69. BP stable at 122/64. - Continue cardizem 30mg TID, Lopressor 12.5mg BID - Discontinue Eliquis until tunneled dialysis cath placed - Continue Lovenox until Eliquis may be restarted Qualifiers: Atrial fibrillation type: chronic Qualified Code(s): I48.2 - Chronic atrial fibrillation (5) COPD (chronic obstructive pulmonary disease) Current Visit: Yes Status: Chronic - Continue: Proventil neb Q4hr PRN AMANDA, Duoneb Q6hr PRN AMANDA Qualifiers: COPD type: unspecified COPD Qualified Code(s): J44.9 - Chronic obstructive pulmonary disease, unspecified (6) DM type 2 (diabetes mellitus, type 2) Current Visit: No Status: Chronic Continue SS insulin and accucheck. Qualifiers: Diabetes mellitus complication status: with kidney complications Diabetes mellitus complication detail: with nephropathy Diabetes mellitus alf insulin use: without bed bug exterminator use Qualified Code(s): E11.21 - Type 2 diabetes mellitus with diabetic nephropathy (7) Cirrhosis Current Visit: Yes Status: Chronic Qualifiers: Hepatic cirrhosis type: unspecified hepatic cirrhosis Ascites presence: without ascites Qualified Code(s): K74.60 - Unspecified cirrhosis of liver (8) Obesity Current Visit: No Status: Chronic Qualifiers: Obesity type: due to excess calories Obesity severity: morbid Qualified Code(s): E66.01 - Morbid (severe) obesity due to excess calories (9) LITO on CPAP Current Visit: Yes Status: Chronic (10) DVT prophylaxis Current Visit: No Status: Acute Lovenox Subjective Principal diagnosis: Pulmonary Edema Interval history: Mrs. Rodriguez has improved overnight. She is awake, alert, answers questions appropriately. She was laughing at my jokes. She remains on BiPap and expresses interest to eat - will order honey thick diet. No overnight events to report. Family at bedside; they have no questions at this time. Objective PUL Vital signs: Last Vital Signs Temp 97.1 F L 11/28/16 12:30 Pulse 73 11/28/16 13:30 Resp 24 11/28/16 13:30 BP 104/61 11/28/16 13:30 Pulse Ox 100 11/28/16 13:30 General appearance: no acute distress, alert Eyes: nonicteric ENT: oropharynx moist Neck: supple Effort: normal Auscultation: bilateral: diminished breath sounds Cardiovascular: regular rate and rhythm Gastrointestinal: normoactive bowel sounds, soft, non-tender, non-distended Integumentary: normal Extremities: no cyanosis, pink and warm, pulses normal, edema (trace pedal edema ) Musculoskeletal: no deformities normal mental status mood appropriate, affect normal Results - Laboratory Findings CBC and BMP: 11/28/16 06:25 11/28/16 06:25 ABG ABG pH 7.29 pH Units (7.32-7.45) L 11/27/16 06:10 ABG pCO2 71 mmHg (35-45) H* 11/27/16 06:10 ABG pO2 72 mmHg (85-104) L 11/27/16 06:10 ABG O2 Saturation 92 % (95-98) L 11/27/16 06:10 PT/INR, D-dimer PT 13.6 Seconds (9.4-12.1) H 11/25/16 12:07 Abnormal lab findings: Abnormal lab results RBC 3.54 M/mcL (3.82-4.97) L 11/28/16 06:25 Hgb 8.8 g/dL (11.5-15.4) L 11/28/16 06:25 Hct 29.7 % (35.3-44.9) L 11/28/16 06:25 MCH 24.9 pg (28.0-33.3) L 11/28/16 06:25 MCHC 29.6 g/dL (31.6-35.5) L 11/28/16 06:25 RDW 17.4 % (11.5-14.5) H 11/28/16 06:25 MPV 8.1 fL (9.4-12.4) L 11/28/16 06:25 Band Neutrophils % 7.3 % (0-4) H 11/26/16 03:20 Metamyelocytes % 3.6 % (0) H 11/26/16 03:20 Nucleated RBCs/100 WBC 0.2 /100 WBC (0) H 11/27/16 03:00 Hypochromasia Present (Not Present) A 11/27/16 03:00 Poikilocytosis 1+ (Not Present) A 11/26/16 03:20 Anisocytosis 1+ (Not Present) A 11/27/16 03:00 PT 13.6 Seconds (9.4-12.1) H 11/25/16 12:07 ABG pH 7.29 pH Units (7.32-7.45) L 11/27/16 06:10 ABG pCO2 71 mmHg (35-45) H* 11/27/16 06:10 ABG pO2 72 mmHg (85-104) L 11/27/16 06:10 ABG HCO3 34.1 mEQ/L (21-27) H 11/27/16 06:10 ABG Total CO2 36.3 mEq/L (20-26) H 11/27/16 06:10 ABG O2 Saturation 92 % (95-98) L 11/27/16 06:10 ABG Base Excess 6.2 mEq/L (-2.0 to 3.0) H 11/27/16 06:10 Carbon Dioxide 31 mEq/L (19-29) H 11/28/16 06:25 BUN 27 mg/dL (7-20) H 11/28/16 06:25 Creatinine 3.41 mg/dL (0.57-1.11) H 11/28/16 06:25 Est GFR ( Amer) 16 (> 60) L 11/28/16 06:25 Est GFR (Non-Af Amer) 13 (> 60) L 11/28/16 06:25 Glucose 112 mg/dL (70-99) H 11/28/16 06:25 POC Glucose 102 (58-89) H 11/28/16 12:49 Iron 26 mcg/dL (50-170) L 11/23/16 04:27 % Saturation 10 % (15-50) L 11/23/16 04:27 B-Natriuretic Peptide 878 pg/mL (0-100) H 11/26/16 03:21 Albumin 2.4 g/dL (3.5-5.0) L 11/25/16 05:55 Globulin 3.8 g/dL (2.4-3.5) H 11/25/16 05:55 Albumin/Globulin Ratio 0.6 (1.1-2.2) L 11/25/16 05:55 Urine Protein 30 mg/dL (Neg-Trace) H 11/12/16 07:58 Urine Blood Small (Negative) H 11/12/16 07:58 Ur Leukocyte Esterase Small (Negative) H 11/12/16 07:58 Urine Microscopic RBC 5-15 per hpf (0-3) H 11/12/16 07:58 Urine Microscopic WBC 5-15 per hpf (0-3) H 11/12/16 07:58 Ur Squamous Epith Cells Many per lpf (None-Few) H 11/12/16 07:58 Ur Culture Indicated? YES (NO) A 11/12/16 07:58 - Microbiology Findings Microbiology Findings: Microbiology, Last 48 Hours 11/27/16 14:39 Body Fluid Culture - Preliminary Pleural Fluid - Clinical Findings Intake & Output: Intake & Output 11/27/16 11/28/16 11/28/16 23:59 07:59 15:59 Intake Total 350 / 350 0 / 0 300 / 300 Output Total 0 / 0 0 / 0 Balance 350 / 350 0 / 0 300 / 300 Weight 91.535 kg 91.535 kg - VTE Documentation of Mechanical Device: Venous foot pump, device Consult Discharge Plan - Plan Referrals: Henrry Mccullough MD [Primary Care Provider] - (Web requested 11/14/16) <Ulices Luis - Last Filed: 11/28/16 16:57> Date of Encounter: 11/28/16 Objective PUL Vital signs: Last Vital Signs Temp 99.3 F 11/28/16 16:00 Pulse 72 11/28/16 16:00 Resp 38 11/28/16 16:05 BP 116/76 11/28/16 16:00 Pulse Ox 100 11/28/16 16:05 Results - Laboratory Findings CBC and BMP: 11/28/16 06:25 11/28/16 06:25 ABG ABG pH 7.29 pH Units (7.32-7.45) L 11/27/16 06:10 ABG pCO2 71 mmHg (35-45) H* 11/27/16 06:10 ABG pO2 72 mmHg (85-104) L 11/27/16 06:10 ABG O2 Saturation 92 % (95-98) L 11/27/16 06:10 PT/INR, D-dimer PT 13.6 Seconds (9.4-12.1) H 11/25/16 12:07 Abnormal lab findings: Abnormal lab results RBC 3.54 M/mcL (3.82-4.97) L 11/28/16 06:25 Hgb 8.8 g/dL (11.5-15.4) L 11/28/16 06:25 Hct 29.7 % (35.3-44.9) L 11/28/16 06:25 MCH 24.9 pg (28.0-33.3) L 11/28/16 06:25 MCHC 29.6 g/dL (31.6-35.5) L 11/28/16 06:25 RDW 17.4 % (11.5-14.5) H 11/28/16 06:25 MPV 8.1 fL (9.4-12.4) L 11/28/16 06:25 Band Neutrophils % 7.3 % (0-4) H 11/26/16 03:20 Metamyelocytes % 3.6 % (0) H 11/26/16 03:20 Nucleated RBCs/100 WBC 0.2 /100 WBC (0) H 11/27/16 03:00 Hypochromasia Present (Not Present) A 11/27/16 03:00 Poikilocytosis 1+ (Not Present) A 11/26/16 03:20 Anisocytosis 1+ (Not Present) A 11/27/16 03:00 PT 13.6 Seconds (9.4-12.1) H 11/25/16 12:07 ABG pH 7.29 pH Units (7.32-7.45) L 11/27/16 06:10 ABG pCO2 71 mmHg (35-45) H* 11/27/16 06:10 ABG pO2 72 mmHg (85-104) L 11/27/16 06:10 ABG HCO3 34.1 mEQ/L (21-27) H 11/27/16 06:10 ABG Total CO2 36.3 mEq/L (20-26) H 11/27/16 06:10 ABG O2 Saturation 92 % (95-98) L 11/27/16 06:10 ABG Base Excess 6.2 mEq/L (-2.0 to 3.0) H 11/27/16 06:10 Carbon Dioxide 31 mEq/L (19-29) H 11/28/16 06:25 BUN 27 mg/dL (7-20) H 11/28/16 06:25 Creatinine 3.41 mg/dL (0.57-1.11) H 11/28/16 06:25 Est GFR ( Amer) 16 (> 60) L 11/28/16 06:25 Est GFR (Non-Af Amer) 13 (> 60) L 11/28/16 06:25 Glucose 112 mg/dL (70-99) H 11/28/16 06:25 POC Glucose 137 (58-89) H 11/28/16 16:13 Iron 26 mcg/dL (50-170) L 11/23/16 04:27 % Saturation 10 % (15-50) L 11/23/16 04:27 B-Natriuretic Peptide 878 pg/mL (0-100) H 11/26/16 03:21 Albumin 2.4 g/dL (3.5-5.0) L 11/25/16 05:55 Globulin 3.8 g/dL (2.4-3.5) H 11/25/16 05:55 Albumin/Globulin Ratio 0.6 (1.1-2.2) L 11/25/16 05:55 Urine Protein 30 mg/dL (Neg-Trace) H 11/12/16 07:58 Urine Blood Small (Negative) H 11/12/16 07:58 Ur Leukocyte Esterase Small (Negative) H 11/12/16 07:58 Urine Microscopic RBC 5-15 per hpf (0-3) H 11/12/16 07:58 Urine Microscopic WBC 5-15 per hpf (0-3) H 11/12/16 07:58 Ur Squamous Epith Cells Many per lpf (None-Few) H 11/12/16 07:58 Ur Culture Indicated? YES (NO) A 11/12/16 07:58 - Microbiology Findings Microbiology Findings: Microbiology, Last 48 Hours 11/27/16 14:39 Body Fluid Culture - Preliminary Pleural Fluid - Clinical Findings Intake & Output: Intake & Output 11/28/16 11/28/16 11/28/16 07:59 15:59 23:59 Intake Total 0 / 0 300 / 300 0 / 0 Output Total 0 / 0 3600 / 3600 0 / 0 Balance 0 / 0 -3300 / -3300 0 / 0 Weight 91.535 kg 91.535 kg - Attending Attestation I examined this patient and my medical decision-making was reviewed with the CUSTOMER ENGAGEMENT SPECIALIST/PA/Advanced Practice Nurse/Resident Physician. I agree with the documented findings, disposition and treatment plan as described except to the extent set forth below. Patient seen and examined. Labs, radiology, chart personally reviewed. Agree with resident's history and physical, assessment, plan with following comments: MARKETING AGENT: Patient follows commands, Pulmonary: Acceptable oxygenation and ventilation. Weaning of BiPAP as tolerated Cardiovascular: stable GI: Nutrition per dietary and GI prophylaxis per routine. Palliative care discussed with the family regarding nutrition Heme: DVT prophylaxis per routine ID: Continue antibiotics and plan to de-escalation Renal; nephrology follow-up and fluid removal Endorcine: blood glucose is monitored Lines: all lines checked and no evidence of infections Skin: skin care to prevent pressure ulcers per nursing routine care Patient can be transferred to [facility] when bed available.
[2016-11-28] MEDS: *HR* LORazepam 0.5 MG TABLET PO PRN ×2 (16:26→21:57)
[2016-11-28] MEDS ORDERED: Ondansetron ODT 4 MG TAB.RAPDIS SL PRN (17:48)
[2016-11-28] MEDS ORDERED: Dextrose Gel 15 GM PO PRN ×2 (17:48)
[2016-11-28] MEDS ORDERED: Benzonatate 100 MG CAPSULE PO PRN (17:48)
[2016-11-28] MEDS ORDERED: Naloxone 0.4 MG/ML INJ IVP PRN (17:48)
[2016-11-28] MEDS ORDERED: *HR* FentaNYL (PF) 100 MCG/2 ML VIAL IV PRN (17:48)
[2016-11-28] MEDS ORDERED: D5% in Water 1,000 ML IVC PRN (17:48)
[2016-11-28] MEDS ORDERED: Albuterol 2.5 MG/3 ML NEBULIZER IH PRN (17:48)
[2016-11-28] MEDS ORDERED: *HR* Dextrose 50 % in Water (Syg) 50 ML SYRINGE IVP PRN (17:48)
[2016-11-28] MEDS: Insulin DETEMIR 100 UNIT/ML X5UNITS SQ SCH (22:54)
[2016-11-29] MEDS: OxyCODONE CONC 5 MG/0.25 ML ORAL.SYG PO PRN ×4 (00:24→20:47)
[2016-11-29 02:21] LABS: Bilirubin,Urine Moderate (Negative); Blood,Urine Moderate (Negative); Clarity,Urine Turbid (Clear); Color,Urine Dark Yellow (Yellow); Glucose,Urine (UA) Normal (Normal); Ketones,Urine Trace mg/dL (Negative); Leukocyte Esterase,Urine Large (Negative); Nitrite,Urine Negative (Negative); PH,Urine 5.5 pH Units (5.0-8.0); Protein,Urine 100 mg/dL (Neg-Trace); Specific Gravity,Urine 1.023 (1.010-1.025); Urobilinogen,Urine Normal (Normal)
[2016-11-29 02:23] LABS: Bacteria,Urine Many per hpf (None-Few); Hyaline Casts,Urine None Seen per lpf (None-Few); Squamous Epithelial Cell,Urine Moderate per lpf (None-Few); WBC,Urine TNTC per hpf (0-3)
[2016-11-29 02:36] LABS: Yeast,Urine Few per hpf (None Seen)
[2016-11-29] MEDS: Ipratropium/Albuterol Neb 3 ML IH SCH ×4 (04:42→22:40)
[2016-11-29 04:49] LABS: ABG Base Excess 7.9 mEq/L (-2.0 to 3.0); ABG HCO3 35.3 mEQ/L (21-27); ABG Oxygen Saturation 92 % (95-98); ABG PCO2 67 mmHg (35-45); ABG PH 7.33 pH Units (7.32-7.45); ABG PO2 68 mmHg (85-104); ABG TCO2 37.4 mEq/L (20-26)
[2016-11-29 04:50] LABS: Blood Gas FiO2 45 %; Blood Gas Liter Flow 8 L/MIN
[2016-11-29 05:41] LABS: Basophils % 0.2 %; Eosinophils # 0.2 K/mcL (0.0-0.6); Eosinophils % 1.7 %; Hemoglobin 8.8 g/dL (11.5-15.4); Immature Granulocytes % 2.5 % (0-4); Lymphocytes # 0.8 K/mcL (0.6-4.6); Lymphocytes % 7.2 %; Mean Corpuscular HGB Conc 29.3 g/dL (31.6-35.5); Mean Corpuscular Hemoglobin 24.5 pg (28.0-33.3); Mean Corpuscular Volume 83.6 fL (83.0-100.0); Mean Platelet Volume 8.4 fL (9.4-12.4); Monocytes # 1.2 K/mcL (0.0-1.3); Monocytes % 11.2 %; Neutrophils # 8.1 K/mcL (1.6-8.9); Nucleated Red Blood Cells 0.2 /100 WBC (0); Platelet Count 260 K/mcL (140-400); Red Blood Count 3.59 M/mcL (3.82-4.97); Red Cell Distribution Width 17.4 % (11.5-14.5); Segmented Neutrophils % 77.2 %
[2016-11-29 06:01] LABS: Calcium 8.9 mg/dL (8.6-10.8)
[2016-11-29] MEDS: Lactulose Oral Soln 20 GM/30 ML UDC PO SCH ×4 (07:52→20:48)
[2016-11-29] MEDS: Gabapentin 100 MG CAPSULE PO SCH ×2 (07:52→20:49)
[2016-11-29] MEDS: Aspirin 81 MG TAB.CHEW PO SCH (07:52)
[2016-11-29] MEDS: Folic Acid 1 MG TABLET PO SCH (07:53)
[2016-11-29] MEDS: Sucralfate 1 GM TABLET PO SCH ×2 (07:53→16:37)
[2016-11-29] MEDS: *HR* LORazepam 0.5 MG TABLET PO PRN (07:53)
[2016-11-29] MEDS: Insulin LISPRO 300 UNITS/3 ML VIAL SQ SCH ×4 (08:00→21:04)
--- NOTE | 2016-11-29 10:06 | Event Note ---
Date of Encounter: 11/29/16 Time of Encounter: 10:04 Ms. Rodriguez is sitting up in bed. She is conversant, but confused at times. She ate minimal amounts of morning meal, but did participate in physical therapy. Nurse reports recent administration of oxycodone for pain. Discussed case with dietitian, intake continues to be poor. Staff encouraged to assist with meals. Per family meeting yesterday, patient and family seeking aggressive care. The palliative care team continues to follow at a distance, will follow clinical course.
--- NOTE | 2016-11-29 10:56 | Nephrology Progress Note ---
Date of Encounter: 11/29/16 Time of Encounter: 10:40 - Assessment and Plan (1) Acute worsening of stage 4 chronic kidney disease Current Visit: No Status: Acute MELECIO/CKD, acute on chronic diastolic CHF. Most likely has some underlying pulmonary issues. Baseline creat 1.4. Creat 3.41. No documented urine output. High flow O2. Has temporary dialysis catheter in left CFV. Awaiting placement of tunneled catheter. No HD today. Subjective Principal diagnosis: Pulmonary Edema Interval history: On high flow O2, nonsensical words. Brother at bedside. Objective - Vital Signs Vital signs: Vital Signs Temp Pulse Resp BP Pulse Ox 11/29/16 09:45 98.1 F 77 18 119/68 97 11/29/16 08:15 98.1 F 83 18 119/68 98 11/29/16 07:24 98.1 F 83 18 119/68 98 11/29/16 05:05 98.5 F 79 18 100/61 97 11/29/16 04:42 19 95 11/29/16 01:27 99.5 F 77 18 145/64 97 11/28/16 22:36 20 100 11/28/16 20:43 98.5 F 77 20 120/61 100 11/28/16 18:04 76 38 119/65 100 11/28/16 16:05 38 100 11/28/16 16:00 99.3 F 72 41 116/76 100 11/28/16 15:00 73 20 124/74 96 11/28/16 14:00 72 20 124/72 100 11/28/16 13:43 98.3 F 20 121/82 11/28/16 13:30 73 24 104/61 100 11/28/16 13:05 104/61 11/28/16 12:50 114/56 11/28/16 12:35 103/55 11/28/16 12:30 97.1 F L 74 24 120/108 100 11/28/16 12:20 103/62 11/28/16 12:05 119/75 11/28/16 12:00 97.1 F L 11/28/16 11:50 117/72 11/28/16 11:35 98/54 11/28/16 11:27 77 24 113/53 100 11/28/16 11:20 104/67 11/28/16 11:05 105/54 Intake and Output 11/28/16 11/29/16 11/29/16 23:59 07:59 15:59 Intake Total 0 / 0 120 / 120 Output Total 0 / 0 200 / 200 0 / 0 Balance 0 / 0 -200 / -200 120 / 120 Intake: Oral 0 / 0 120 / 120 Output: Urine 0 / 0 0 / 0 Straight Cath 200 / 200 Other: Meal Dinner Breakfast Percent of Meal Consumed 50% 10% # Bowel Movements 0 Weight 89.5 kg 88.4 kg Blood Glucose* 190 138 190 Patient Weight 11/29/16 23:59 Weight 88.4 kg - General Appearance General appearance: Present: well-developed, well-nourished, appears started age EENT: Present: mucous membranes moist Neck: Present: no JVD Additional Comments: fine bibasilar crackles Cardiology: Present: no edema, regular rhythm Gastrointestinal: Present: hypoactive bowel sounds, no tenderness, no guarding Integumentary: Present: warm and dry Psychiatric: Present: cooperative - Lab 11/29/16 05:00 11/29/16 05:00 Most recent lab results ABG pH 7.33 pH Units (7.32-7.45) 11/29/16 04:41 ABG pCO2 67 mmHg (35-45) H 11/29/16 04:41 ABG pO2 68 mmHg (85-104) L 11/29/16 04:41 ABG HCO3 35.3 mEQ/L (21-27) H 11/29/16 04:41 ABG O2 Saturation 92 % (95-98) L 11/29/16 04:41 Calcium 8.9 mg/dL (8.6-10.8) 11/29/16 05:00 Phosphorus 3.3 mg/dL (2.3-4.7) 11/22/16 05:11 - VTE Documentation of Mechanical Device: Venous foot pump, device Consult Discharge Plan - Plan Referrals: Henrry Mccullough MD [Primary Care Provider] - (Web requested 11/14/16)
[2016-11-29] MEDS ORDERED: Lidocaine -MPF 1% 5 ML AMPUL INFILT ONE (11:00)
[2016-11-29] MEDS ORDERED: Heparin 1,000 UNITS/500 mL NS 500 ML ONE (14:24)
[2016-11-29] MEDS ORDERED: Clindamycin 600 MG/50 ML 600 MG/50 ML IV.SOLN IVPB STA (15:26)
[2016-11-29] MEDS ORDERED: *HR* FentaNYL (PF) 100 MCG/2 ML VIAL IV PRN (15:26)
[2016-11-29] MEDS ORDERED: *HR* Midazolam HCl 2 MG/2 ML VIAL IV PRN (15:26)
--- NOTE | 2016-11-29 15:28 | Pre-Sedation Evaluation ---
Pre-sedation evaluation - Pre-sedation checklist Date of procedure: 11/29/16 Procedure: permacath Recent Vitals: Last Vital Signs Temp 97.9 F 11/29/16 11:56 Pulse 72 11/29/16 11:56 Resp 18 11/29/16 11:56 BP 120/83 11/29/16 11:56 Pulse Ox 96 11/29/16 11:56 H&P (including ROS) documented in medical record: Yes Previous reaction to sedatives/anesthetics: Unknown Dietary Status: NPO 6 hours prior to procedure Airway Assessment: Patient can open mouth completely, TMJ function normal, Micrognathia (under-bite, receding chin) absent, Neck with adequate range of motion Dentition: No loose teeth or bridges ASA Classification *see protocol: CLASS II-Mild systemic disease Plan of Care: Pt appropriate candidate for procedure/moderate/conscious sedation , Risks/benefits of procedure/sedation discussed w/ patient/family, If not NPO; Risk of intake outweiged by necessity to perform procedure
[2016-11-29] MEDS ORDERED: 0.9 % Sodium Chloride 500 ML ONE (15:37)
[2016-11-29] MEDS ORDERED: *HR* Heparin 5,000 UNIT/ML VIAL ONE (15:59)
--- NOTE | 2016-11-29 16:54 | Internal Med Progress Note ---
Date of Encounter: 11/29/16 Time of Encounter: 16:51 - Assessment and plan (1) Renal insufficiency Current Visit: No Status: Acute Assessment and plan: currently on hd as per nephrology recommendations, no plan for hd today. patient has an avf which is not functioning, has had hd via tempoal access, plan is to place a permacath via IR today. D/W nephrology. d/w patient. (2) Atrial fibrillation Current Visit: Yes Status: Chronic Assessment and plan: continue rate-control meds, long-term anticoagulation on hold in light of HD access placement via IR will resume ac afterwards. Qualifiers: Atrial fibrillation type: chronic Qualified Code(s): I48.2 - Chronic atrial fibrillation (3) Urinary tract infection Current Visit: Yes Status: Acute Assessment and plan: history of UTIs, will give iv ertapenem and adjust therapy based on urine culture. Qualifiers: Urinary tract infection type: acute cystitis Hematuria presence: without hematuria Qualified Code(s): N30.00 - Acute cystitis without hematuria (4) DVT prophylaxis Current Visit: No Status: Acute (5) DM (diabetes mellitus), type 2 Current Visit: Yes Status: Chronic Assessment and plan: continue Accucheck blood glucose monitoring with basal bolus insulin regimen; diabetic diet; 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 mellitus buttermaker helper insulin use: with buttermaker helper use Chronic kidney disease stage: stage 3 (moderate) Qualified Code(s): E11.22 - Type 2 diabetes mellitus with diabetic chronic kidney disease; N18.3 - Chronic kidney disease, stage 3 ( moderate); Z79.4 - manager long term care (current) use of insulin - Subjective Interval history: patient seen and examined during rounds. afebrile. avf noted in the lue. no respiratory distress. - Constitutional Vitals: Temp Pulse Resp BP Pulse Ox 97.9 F 72 18 120/83 96 11/29/16 11:56 11/29/16 11:56 11/29/16 11:56 11/29/16 11:56 11/29/16 11:56 General appearance: Present: cooperative, A&O X 2, mild distress, morbidly obese , answers questions appropriately - Head Head exam: Present: atraumatic, normocephalic - Eye Eye exam: Present: PERRL, conjuntiva pink, sclera anicteric Pupils: Present: PERRL - Neck Neck exam general surgery: Present: supple, trachea midline. Absent: lymphadenopathy - Respiratory Respiratory exam: Present: decreased breath sounds. Absent: accessory muscle use, rales, rhonchi, wheezes - Cardiovascular Cardiovascular exam: Present: RRR, +S1, +S2. Absent: diastolic murmur, gallop, rubs, systolic murmur - GI/Abdominal GI/Abdominal exam: Present: normal bowel sounds, soft, no peritoneal signs. Absent: distended, tenderness - Extremities Exam Extremities exam: Present: warm, radial pulses palpable and symetrical. Absent : calf tenderness, cyanotic, pedal edema - Neurological Exam Neurological exam: Present: CN II-XII intact, oriented X3, no focal deficits. Absent: pronater drift, facial droop, speech deficit - Skin Skin exam: Present: dry, intact Internal Medicine: Result - Labs CBC & Chem 7: 11/29/16 05:00 11/29/16 05:00 Labs: Short CBC 11/29/16 Range/Units 05:00 WBC 10.5 (4.3-11.1) K/mcL Hgb 8.8 L (11.5-15.4) g/dL Hct 30.0 L (35.3-44.9) % Plt Count 260 (140-400) K/mcL Neutrophils # 8.1 (1.6-8.9) K/mcL BMP 11/29/16 05:00 Sodium 137 Potassium 4.0 Chloride 100 Carbon Dioxide 31 H BUN 16 D Creatinine 2.62 H Glucose 120 H Calcium 8.9 Urine 11/29/16 Range/Units 01:58 Urine Color Dark Yellow (Yellow) Urine Clarity Turbid A (Clear) Urine pH 5.5 (5.0-8.0) pH Units Ur Specific Outlook 1.023 (1.010-1.025) Urine Protein 100 H (Neg-Trace) mg/dL Urine Glucose (UA) Normal (Normal) mg/dL - ABG Interpretation ABG results: ABG ABG pH 7.33 pH Units (7.32-7.45) 11/29/16 04:41 ABG pCO2 67 mmHg (35-45) H 11/29/16 04:41 ABG pO2 68 mmHg (85-104) L 11/29/16 04:41 ABG O2 Saturation 92 % (95-98) L 11/29/16 04:41 PT/INR, D-dimer PT 13.6 Seconds (9.4-12.1) H 11/25/16 12:07 - VTE Documentation of Mechanical Device: Venous foot pump, device Consult Discharge Plan - Plan Referrals: Henrry Mccullough MD [Primary Care Provider] - (SENT WEB REQUEST ON 11-29-16 @ 2274 )
[2016-11-29] MEDS: Insulin DETEMIR 100 UNIT/ML X5UNITS SQ SCH (20:48)
[2016-11-30] MEDS: OxyCODONE CONC 5 MG/0.25 ML ORAL.SYG PO PRN ×2 (02:50→20:04)
[2016-11-30] MEDS: Ipratropium/Albuterol Neb 3 ML IH SCH ×4 (04:31→21:55)
[2016-11-30 05:02] LABS: Basophils % 0.2 %; Eosinophils # 0.1 K/mcL (0.0-0.6); Eosinophils % 1.3 %; Hematocrit 28.5 % (35.3-44.9); Hemoglobin 8.4 g/dL (11.5-15.4); Immature Granulocytes % 1.8 % (0-4); Lymphocytes # 0.6 K/mcL (0.6-4.6); Lymphocytes % 5.4 %; Mean Corpuscular HGB Conc 29.5 g/dL (31.6-35.5); Mean Corpuscular Hemoglobin 24.5 pg (28.0-33.3); Mean Corpuscular Volume 83.1 fL (83.0-100.0); Mean Platelet Volume 9.1 fL (9.4-12.4); Monocytes # 1.2 K/mcL (0.0-1.3); Monocytes % 10.8 %; Platelet Count 242 K/mcL (140-400); Red Blood Count 3.43 M/mcL (3.82-4.97); Red Cell Distribution Width 18.2 % (11.5-14.5); Segmented Neutrophils % 80.5 %
[2016-11-30] MEDS ORDERED: *HR* OxyCODONE Immed Rel 5 MG TABLET PO ONE (05:24)
[2016-11-30 05:59] LABS: Calcium 9.1 mg/dL (8.6-10.8); Potassium 4.3 mEq/L (3.5-4.5)
[2016-11-30] MEDS: Lactulose Oral Soln 20 GM/30 ML UDC PO SCH ×4 (08:18→21:01)
[2016-11-30] MEDS: Gabapentin 100 MG CAPSULE PO SCH ×2 (08:18→21:01)
[2016-11-30] MEDS: Aspirin 81 MG TAB.CHEW PO SCH (08:19)
[2016-11-30] MEDS: Folic Acid 1 MG TABLET PO SCH (08:19)
[2016-11-30] MEDS: Sucralfate 1 GM TABLET PO SCH ×2 (08:19→15:32)
[2016-11-30] MEDS: Insulin LISPRO 300 UNITS/3 ML VIAL SQ SCH ×3 (08:24→16:00)
[2016-11-30] MEDS ORDERED: Darbepoetin 100 MCG/0.5 ML SYRINGE SQ SCH ×2 (09:00)
[2016-11-30] MEDS ORDERED: 0.9 % Sodium Chloride 250 ML IVC PRN (09:05)
[2016-11-30] MEDS ORDERED: *HR* Heparin 10,000 UNIT/10 ML VIAL IV PRN (09:05)
[2016-11-30] MEDS ORDERED: 0.9 % Sodium Chloride 1,000 ML PRIME SCH (09:15)
--- NOTE | 2016-11-30 09:15 | Palliative Progress Note ---
<Emile Henry - Last Filed: 11/30/16 09:13> Date of Encounter: 11/30/16 Time of Encounter: 09:13 - Assessment and plan (1) Goals of care, counseling/discussion Current Visit: No Status: Acute Assessment and plan: Maintain FULL CODE status. Pt does not want chest tube. Will further discuss need for PEG tube. (2) Dysphagia Current Visit: No Status: Chronic Assessment and plan: Pt with MBS and started on nectar thick liquids. Pt intake improved with family or nurse coaching. Will need to continue to monitor for evaluation of possible PEG tube. Qualifiers: Dysphagia type: pharyngeal phase Qualified Code(s): R13.13 - Dysphagia, pharyngeal phase - Time Spent With Patient Total time spent is greater than 50% in coordination of care (as documented) at patient's floor/unit and/or counseling patient: - Subjective Interval history: Pt tolerated good portion of dinner last night. Nurse helping to feed breakfast. Does well with lots of coaching. Drinks more ensure this am than solid food. Pt continues to have mild pain. Benzo stopped at family request due to adverse reaction. The patient may benefit from the addition of Seroquel. - Constitutional Vitals: Abnormal lab results WBC 11.2 K/mcL (4.3-11.1) H 11/30/16 03:55 RBC 3.43 M/mcL (3.82-4.97) L 11/30/16 03:55 Hgb 8.4 g/dL (11.5-15.4) L 11/30/16 03:55 Hct 28.5 % (35.3-44.9) L 11/30/16 03:55 MCH 24.5 pg (28.0-33.3) L 11/30/16 03:55 MCHC 29.5 g/dL (31.6-35.5) L 11/30/16 03:55 RDW 18.2 % (11.5-14.5) H 11/30/16 03:55 MPV 9.1 fL (9.4-12.4) L 11/30/16 03:55 Band Neutrophils % 7.3 % (0-4) H 11/26/16 03:20 Metamyelocytes % 3.6 % (0) H 11/26/16 03:20 Neutrophils # 9.0 K/mcL (1.6-8.9) H 11/30/16 03:55 Nucleated RBCs/100 WBC 0.2 /100 WBC (0) H 11/29/16 05:00 Hypochromasia Present (Not Present) A 11/27/16 03:00 Poikilocytosis 1+ (Not Present) A 11/26/16 03:20 Anisocytosis 1+ (Not Present) A 11/27/16 03:00 PT 13.6 Seconds (9.4-12.1) H 11/25/16 12:07 ABG pCO2 67 mmHg (35-45) H 11/29/16 04:41 ABG pO2 68 mmHg (85-104) L 11/29/16 04:41 ABG HCO3 35.3 mEQ/L (21-27) H 11/29/16 04:41 ABG Total CO2 37.4 mEq/L (20-26) H 11/29/16 04:41 ABG O2 Saturation 92 % (95-98) L 11/29/16 04:41 ABG Base Excess 7.9 mEq/L (-2.0 to 3.0) H 11/29/16 04:41 Sodium 135 mEq/L (136-145) L 11/30/16 05:36 BUN 25 mg/dL (7-20) H 11/30/16 05:36 Creatinine 3.36 mg/dL (0.57-1.11) H 11/30/16 05:36 Est GFR ( Amer) 16 (> 60) L 11/30/16 05:36 Est GFR (Non-Af Amer) 13 (> 60) L 11/30/16 05:36 Glucose 194 mg/dL (70-99) H 11/30/16 05:36 POC Glucose 191 (58-89) H 11/29/16 20:26 Iron 26 mcg/dL (50-170) L 11/23/16 04:27 % Saturation 10 % (15-50) L 11/23/16 04:27 B-Natriuretic Peptide 878 pg/mL (0-100) H 11/26/16 03:21 Albumin 2.4 g/dL (3.5-5.0) L 11/25/16 05:55 Globulin 3.8 g/dL (2.4-3.5) H 11/25/16 05:55 Albumin/Globulin Ratio 0.6 (1.1-2.2) L 11/25/16 05:55 Urine Clarity Turbid (Clear) A 11/29/16 01:58 Urine Protein 100 mg/dL (Neg-Trace) H 11/29/16 01:58 Urine Ketones Trace mg/dL (Negative) H 11/29/16 01:58 Urine Blood Moderate (Negative) H 11/29/16 01:58 Urine Bilirubin Moderate (Negative) H 11/29/16 01:58 Ur Leukocyte Esterase Large (Negative) H 11/29/16 01:58 Urine Microscopic RBC 5-15 per hpf (0-3) H 11/29/16 01:58 Urine Microscopic WBC TNTC per hpf (0-3) H 11/29/16 01:58 Ur Squamous Epith Cells Moderate per lpf (None-Few) H 11/29/16 01:58 Urine Bacteria Many per hpf (None-Few) H 11/29/16 01:58 Urine Yeast Few per hpf (None Seen) H 11/29/16 01:58 Ur Culture Indicated? YES (NO) A 11/29/16 01:58 - Head Head exam: Present: atraumatic, normal inspection - Eye Eye exam: Present: normal appearance. Absent: scleral icterus, sclera anicteric - Neck Neck exam: Present: normal inspection - Respiratory Respiratory exam: Absent: respiratory distress - Cardiovascular Cardiovascular exam: Present: RRR - GI/Abdominal GI/Abdominal exam: Present: soft. Absent: rebound, rigid, tenderness - Extremities Exam Extremities exam: Absent: pedal edema - Psychiatric Additional comments: responsive to verbal stimuli. Verbal responses confused and slow in nature - Skin Additional comments: anterior chest with tunneled catheter present Palliative Quality Palliative Quality: Screen for Code Status: Yes, Screen for Goals of Care: Yes, Screen for Pain: Yes, If Pain Regimen Started, Initiate Bowel Regimen: Yes, Screen for Nausea/Vomitting: Yes Code Status: 11/27/16 18:09 FULL [Resuscitation Status: Active] [RES] Routine Comment: Do Not Intubate Resuscitation Status: Full Code - Labs CBC & Chem 7: 11/30/16 03:55 11/30/16 05:36 Labs: Laboratory Results - last 24 hr 11/29/16 11/29/16 11/29/16 07:26 11:33 16:53 WBC RBC Hgb Hct MCV MCH MCHC RDW Plt Count MPV Immature Gran % Seg Neutrophils % Lymphocytes % Monocytes % Eosinophils % Basophils % Neutrophils # Lymphocytes # Monocytes # Eosinophils # Basophils # Sodium Potassium Chloride Carbon Dioxide BUN Creatinine Est GFR ( Amer) Est GFR (Non-Af Amer) BUN/Creatinine Ratio Glucose POC Glucose 138 H 82 134 H Calculated Osmolality Calcium Specimen Rejected 11/29/16 11/30/16 11/30/16 20:26 03:55 03:55 WBC 11.2 H RBC 3.43 L Hgb 8.4 L Hct 28.5 L MCV 83.1 MCH 24.5 L MCHC 29.5 L RDW 18.2 H Plt Count 242 MPV 9.1 L Immature Gran % 1.8 Seg Neutrophils % 80.5 Lymphocytes % 5.4 Monocytes % 10.8 Eosinophils % 1.3 Basophils % 0.2 Neutrophils # 9.0 H Lymphocytes # 0.6 Monocytes # 1.2 Eosinophils # 0.1 Basophils # 0.0 Sodium Potassium Chloride Carbon Dioxide BUN Creatinine Est GFR ( Amer) Est GFR (Non-Af Amer) BUN/Creatinine Ratio Glucose POC Glucose 191 H Calculated Osmolality Calcium Specimen Rejected Hemolyzed 11/30/16 05:36 WBC RBC Hgb Hct MCV MCH MCHC RDW Plt Count MPV Immature Gran % Seg Neutrophils % Lymphocytes % Monocytes % Eosinophils % Basophils % Neutrophils # Lymphocytes # Monocytes # Eosinophils # Basophils # Sodium 135 L Potassium 4.3 Chloride 101 Carbon Dioxide 25 BUN 25 H Creatinine 3.36 H Est GFR ( Amer) 16 L Est GFR (Non-Af Amer) 13 L BUN/Creatinine Ratio 7 Glucose 194 H POC Glucose Calculated Osmolality 290 Calcium 9.1 Specimen Rejected - ABG Interpretation ABG results: ABG ABG pH 7.33 pH Units (7.32-7.45) 11/29/16 04:41 ABG pCO2 67 mmHg (35-45) H 11/29/16 04:41 ABG pO2 68 mmHg (85-104) L 11/29/16 04:41 ABG O2 Saturation 92 % (95-98) L 11/29/16 04:41 PT/INR, D-dimer PT 13.6 Seconds (9.4-12.1) H 11/25/16 12:07 Consult Discharge Plan - Plan Referrals: Henrry Mccullough MD [Primary Care Provider] - (SENT WEB REQUEST ON 11-29-16 @ 0054 ) <Connor Nicole L - Last Filed: 11/30/16 09:28> Date of Encounter: 11/30/16 - Time Spent With Patient Total time spent is greater than 50% in coordination of care (as documented) at patient's floor/unit and/or counseling patient: - Constitutional Vitals: Abnormal lab results WBC 11.2 K/mcL (4.3-11.1) H 11/30/16 03:55 RBC 3.43 M/mcL (3.82-4.97) L 11/30/16 03:55 Hgb 8.4 g/dL (11.5-15.4) L 11/30/16 03:55 Hct 28.5 % (35.3-44.9) L 11/30/16 03:55 MCH 24.5 pg (28.0-33.3) L 11/30/16 03:55 MCHC 29.5 g/dL (31.6-35.5) L 11/30/16 03:55 RDW 18.2 % (11.5-14.5) H 11/30/16 03:55 MPV 9.1 fL (9.4-12.4) L 11/30/16 03:55 Band Neutrophils % 7.3 % (0-4) H 11/26/16 03:20 Metamyelocytes % 3.6 % (0) H 11/26/16 03:20 Neutrophils # 9.0 K/mcL (1.6-8.9) H 11/30/16 03:55 Nucleated RBCs/100 WBC 0.2 /100 WBC (0) H 11/29/16 05:00 Hypochromasia Present (Not Present) A 11/27/16 03:00 Poikilocytosis 1+ (Not Present) A 11/26/16 03:20 Anisocytosis 1+ (Not Present) A 11/27/16 03:00 PT 13.6 Seconds (9.4-12.1) H 11/25/16 12:07 ABG pCO2 67 mmHg (35-45) H 11/29/16 04:41 ABG pO2 68 mmHg (85-104) L 11/29/16 04:41 ABG HCO3 35.3 mEQ/L (21-27) H 11/29/16 04:41 ABG Total CO2 37.4 mEq/L (20-26) H 11/29/16 04:41 ABG O2 Saturation 92 % (95-98) L 11/29/16 04:41 ABG Base Excess 7.9 mEq/L (-2.0 to 3.0) H 11/29/16 04:41 Sodium 135 mEq/L (136-145) L 11/30/16 05:36 BUN 25 mg/dL (7-20) H 11/30/16 05:36 Creatinine 3.36 mg/dL (0.57-1.11) H 11/30/16 05:36 Est GFR ( Amer) 16 (> 60) L 11/30/16 05:36 Est GFR (Non-Af Amer) 13 (> 60) L 11/30/16 05:36 Glucose 194 mg/dL (70-99) H 11/30/16 05:36 POC Glucose 191 (58-89) H 11/29/16 20:26 Iron 26 mcg/dL (50-170) L 11/23/16 04:27 % Saturation 10 % (15-50) L 11/23/16 04:27 B-Natriuretic Peptide 878 pg/mL (0-100) H 11/26/16 03:21 Albumin 2.4 g/dL (3.5-5.0) L 11/25/16 05:55 Globulin 3.8 g/dL (2.4-3.5) H 11/25/16 05:55 Albumin/Globulin Ratio 0.6 (1.1-2.2) L 11/25/16 05:55 Urine Clarity Turbid (Clear) A 11/29/16 01:58 Urine Protein 100 mg/dL (Neg-Trace) H 11/29/16 01:58 Urine Ketones Trace mg/dL (Negative) H 11/29/16 01:58 Urine Blood Moderate (Negative) H 11/29/16 01:58 Urine Bilirubin Moderate (Negative) H 11/29/16 01:58 Ur Leukocyte Esterase Large (Negative) H 11/29/16 01:58 Urine Microscopic RBC 5-15 per hpf (0-3) H 11/29/16 01:58 Urine Microscopic WBC TNTC per hpf (0-3) H 11/29/16 01:58 Ur Squamous Epith Cells Moderate per lpf (None-Few) H 11/29/16 01:58 Urine Bacteria Many per hpf (None-Few) H 11/29/16 01:58 Urine Yeast Few per hpf (None Seen) H 11/29/16 01:58 Ur Culture Indicated? YES (NO) A 11/29/16 01:58 - Attending Attestation I examined this patient and my medical decision-making was reviewed with the BLUEBERRY GROWER/PA/Advanced Practice Nurse/Resident Physician. I agree with the documented findings, disposition and treatment plan as described except to the extent set forth below. Palliative Quality Code Status: 11/27/16 18:09 FULL [Resuscitation Status: Active] [RES] Routine Comment: Do Not Intubate Resuscitation Status: Full Code - Labs CBC & Chem 7: 11/30/16 03:55 11/30/16 05:36 Labs: Laboratory Results - last 24 hr 11/29/16 11/29/16 11/29/16 07:26 11:33 16:53 WBC RBC Hgb Hct MCV MCH MCHC RDW Plt Count MPV Immature Gran % Seg Neutrophils % Lymphocytes % Monocytes % Eosinophils % Basophils % Neutrophils # Lymphocytes # Monocytes # Eosinophils # Basophils # Sodium Potassium Chloride Carbon Dioxide BUN Creatinine Est GFR ( Amer) Est GFR (Non-Af Amer) BUN/Creatinine Ratio Glucose POC Glucose 138 H 82 134 H Calculated Osmolality Calcium Specimen Rejected 11/29/16 11/30/16 11/30/16 20:26 03:55 03:55 WBC 11.2 H RBC 3.43 L Hgb 8.4 L Hct 28.5 L MCV 83.1 MCH 24.5 L MCHC 29.5 L RDW 18.2 H Plt Count 242 MPV 9.1 L Immature Gran % 1.8 Seg Neutrophils % 80.5 Lymphocytes % 5.4 Monocytes % 10.8 Eosinophils % 1.3 Basophils % 0.2 Neutrophils # 9.0 H Lymphocytes # 0.6 Monocytes # 1.2 Eosinophils # 0.1 Basophils # 0.0 Sodium Potassium Chloride Carbon Dioxide BUN Creatinine Est GFR ( Amer) Est GFR (Non-Af Amer) BUN/Creatinine Ratio Glucose POC Glucose 191 H Calculated Osmolality Calcium Specimen Rejected Hemolyzed 11/30/16 05:36 WBC RBC Hgb Hct MCV MCH MCHC RDW Plt Count MPV Immature Gran % Seg Neutrophils % Lymphocytes % Monocytes % Eosinophils % Basophils % Neutrophils # Lymphocytes # Monocytes # Eosinophils # Basophils # Sodium 135 L Potassium 4.3 Chloride 101 Carbon Dioxide 25 BUN 25 H Creatinine 3.36 H Est GFR ( Amer) 16 L Est GFR (Non-Af Amer) 13 L BUN/Creatinine Ratio 7 Glucose 194 H POC Glucose Calculated Osmolality 290 Calcium 9.1 Specimen Rejected - ABG Interpretation ABG results: ABG ABG pH 7.33 pH Units (7.32-7.45) 11/29/16 04:41 ABG pCO2 67 mmHg (35-45) H 11/29/16 04:41 ABG pO2 68 mmHg (85-104) L 11/29/16 04:41 ABG O2 Saturation 92 % (95-98) L 11/29/16 04:41 PT/INR, D-dimer PT 13.6 Seconds (9.4-12.1) H 11/25/16 12:07
--- NOTE | 2016-11-30 09:22 | Nephrology Progress Note ---
Date of Encounter: 11/30/16 Time of Encounter: 09:00 - Assessment and Plan (1) Acute worsening of stage 4 chronic kidney disease Current Visit: No Status: Acute MELECIO/CKD, acute on chronic diastolic CHF. Most likely has some underlying pulmonary issues. Baseline creat 1.4. Creat 3.41. No documented urine output. High flow O2. Tunneled dialysis cath placed yesterday. Has temporary dialysis catheter in left CFV that can be discontinued. HD today, orders given. Subjective Principal diagnosis: Pulmonary Edema Interval history: On high flow O2, nonsensical words. When told will have dialysis today she nodded head. Breakfast assisted by staff. Objective - Vital Signs Vital signs: Vital Signs Temp Pulse Resp BP Pulse Ox 11/30/16 08:24 97.9 F 77 20 122/63 94 11/30/16 08:22 122/63 11/30/16 04:31 17 93 11/30/16 04:07 100.0 F H 76 17 130/62 93 11/29/16 23:13 99.8 F H 74 18 135/74 91 11/29/16 22:41 18 89 11/29/16 20:58 99.5 F 81 20 125/70 91 11/29/16 16:30 98.5 F 79 16 121/81 95 11/29/16 11:56 97.9 F 72 18 120/83 96 11/29/16 11:29 97.9 F 72 18 120/83 90 11/29/16 11:14 18 91 11/29/16 09:45 98.1 F 77 18 119/68 97 Intake and Output 11/29/16 11/30/16 11/30/16 23:59 07:59 15:59 Intake Total 120 / 120 100 / 100 Output Total 0 / 0 Balance 120 / 120 100 / 100 Intake: IV Fluids 100 / 100 INVanz 500 MG In 0.9 % 100 / 100 Sodium Chloride 100 ML @ 100 mls/hr IVPB DAILY [facility] Rx#:[id number] Oral 120 / 120 Output: Urine 0 / 0 Other: Meal Dinner Percent of Meal Consumed 90% Weight 89.4 kg Blood Glucose* 191 188 Patient Weight 11/30/16 23:59 Weight 89.4 kg - General Appearance General appearance: Present: well-developed, well-nourished, appears started age EENT: Present: mucous membranes moist Neck: Present: no JVD Additional Comments: harsh Cardiology: Present: no edema, regular rate, regular rhythm Gastrointestinal: Present: normoactive bowel sounds, no tenderness Integumentary: Present: warm and dry Psychiatric: Present: mood/affect appropriate, cooperative - Lab 11/30/16 03:55 11/30/16 05:36 Most recent lab results ABG pH 7.33 pH Units (7.32-7.45) 11/29/16 04:41 ABG pCO2 67 mmHg (35-45) H 11/29/16 04:41 ABG pO2 68 mmHg (85-104) L 11/29/16 04:41 ABG HCO3 35.3 mEQ/L (21-27) H 11/29/16 04:41 ABG O2 Saturation 92 % (95-98) L 11/29/16 04:41 Calcium 9.1 mg/dL (8.6-10.8) 11/30/16 05:36 Phosphorus 3.3 mg/dL (2.3-4.7) 11/22/16 05:11 - VTE Documentation of Mechanical Device: Venous foot pump, device Consult Discharge Plan - Plan Referrals: Henrry Mccullough MD [Primary Care Provider] - (SENT WEB REQUEST ON 11-29-16 @ 0459 )
[2016-11-30] MEDS ORDERED: 0.9 % Sodium Chloride 2,000 ML ONE (09:23)
[2016-11-30] MEDS: APIXABAN 2.5 MG TABLET PO SCH ×3 (14:05→21:01)
--- NOTE | 2016-11-30 15:34 | Internal Med Progress Note ---
Date of Encounter: 11/30/16 Time of Encounter: 11:00 - Assessment and plan (1) Renal insufficiency Current Visit: No Status: Acute Assessment and plan: currently on hd as per nephrology recommendations, had hd today. patient has an avf which is not functioning, has had hd via tempoal access, had a permacath placed via IR yesterday. d/w patient. (2) Atrial fibrillation Current Visit: Yes Status: Chronic Assessment and plan: continue rate-control meds, long-term anticoagulation was on hold in light of HD access placement via IR. today i resumed her eliquis for ac. Qualifiers: Atrial fibrillation type: chronic Qualified Code(s): I48.2 - Chronic atrial fibrillation (3) Urinary tract infection Current Visit: Yes Status: Acute Assessment and plan: history of UTIs, will contiune with iv ertapenem, obtain another sample for culture. Qualifiers: Urinary tract infection type: acute cystitis Hematuria presence: without hematuria Qualified Code(s): N30.00 - Acute cystitis without hematuria (4) DVT prophylaxis Current Visit: No Status: Acute (5) DM (diabetes mellitus), type 2 Current Visit: Yes Status: Chronic 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 mellitus imcu nurse insulin use: with prison use Chronic kidney disease stage: stage 3 (moderate) Qualified Code(s): E11.22 - Type 2 diabetes mellitus with diabetic chronic kidney disease; N18.3 - Chronic kidney disease, stage 3 ( moderate); Z79.4 - detention (current) use of insulin (6) Chronic respiratory failure Current Visit: Yes Status: Chronic Assessment and plan: will repeat cxr, history of pleural effusion and thoracentesis. Qualifiers: Respiratory failure complication: hypoxia Qualified Code(s): J96.11 - Chronic respiratory failure with hypoxia - Time Spent With Patient 25 - 35 minutes - Subjective Interval history: patient seen and examined while in the hd unit afebrile. avf noted in the lue. patient seems drowsy, however she awakes and responds to verbal stimuli. - Constitutional Vitals: Temp Pulse Resp BP Pulse Ox 98.5 F 78 16 125/76 99 11/30/16 14:05 11/30/16 14:05 11/30/16 14:05 11/30/16 14:05 11/30/16 14:05 General appearance: Present: cooperative, A&O X 2, mild distress, morbidly obese , answers questions appropriately Exam: alert, oriented in place and person, not oriented in time. - Head Head exam: Present: atraumatic, normocephalic - Eye Eye exam: Present: PERRL, conjuntiva pink, sclera anicteric Pupils: Present: PERRL - Neck Neck exam general surgery: Present: supple, trachea midline. Absent: lymphadenopathy - Respiratory Respiratory exam: Present: decreased breath sounds. Absent: accessory muscle use, rales, rhonchi, wheezes - Cardiovascular Cardiovascular exam: Present: RRR, +S1, +S2. Absent: diastolic murmur, gallop, rubs, systolic murmur - GI/Abdominal GI/Abdominal exam: Present: normal bowel sounds, soft, no peritoneal signs. Absent: distended, tenderness - Extremities Exam Extremities exam: Present: warm, radial pulses palpable and symetrical. Absent : calf tenderness, cyanotic, pedal edema - Neurological Exam Neurological exam: Present: CN II-XII intact, oriented X3, no focal deficits. Absent: pronater drift, facial droop, speech deficit - Skin Skin exam: Present: dry, intact Internal Medicine: Result - Labs CBC & Chem 7: 11/30/16 03:55 11/30/16 05:36 Labs: Short CBC 11/30/16 Range/Units 03:55 WBC 11.2 H (4.3-11.1) K/mcL Hgb 8.4 L (11.5-15.4) g/dL Hct 28.5 L (35.3-44.9) % Plt Count 242 (140-400) K/mcL Neutrophils # 9.0 H (1.6-8.9) K/mcL BMP 11/30/16 05:36 Sodium 135 L Potassium 4.3 Chloride 101 Carbon Dioxide 25 BUN 25 H Creatinine 3.36 H Glucose 194 H Calcium 9.1 - ABG Interpretation ABG results: ABG ABG pH 7.33 pH Units (7.32-7.45) 11/29/16 04:41 ABG pCO2 67 mmHg (35-45) H 11/29/16 04:41 ABG pO2 68 mmHg (85-104) L 11/29/16 04:41 ABG O2 Saturation 92 % (95-98) L 11/29/16 04:41 PT/INR, D-dimer PT 13.6 Seconds (9.4-12.1) H 11/25/16 12:07 - Impressions Impressions Guidance Ultrasound 11/20/16 00:00 IMPRESSION: Successful right femoral temporary hemodialysis catheter placement using ultrasound guidance. D/ / 11/21/2016 08:42:07 [facility] Interpreting Provider: Annika Spencer MD - VTE Documentation of Mechanical Device: Venous foot pump, device Consult Discharge Plan - Plan Referrals: Henrry Mccullough MD [Primary Care Provider] - 12/03/16 1:20 pm ()
[2016-11-30 17:12] LABS: Bilirubin,Urine Moderate (Negative); Blood,Urine Large (Negative); Clarity,Urine Turbid (Clear); Glucose,Urine (UA) Normal (Normal); Ketones,Urine Trace mg/dL (Negative); Leukocyte Esterase,Urine Large (Negative); Nitrite,Urine Negative (Negative); PH,Urine 5.5 pH Units (5.0-8.0); Protein,Urine 100 mg/dL (Neg-Trace); Specific Gravity,Urine 1.023 (1.010-1.025); Urobilinogen,Urine Normal (Normal)
[2016-11-30 17:34] LABS: WBC,Urine TNTC per hpf (0-3)
[2016-11-30 17:36] LABS: Squamous Epithelial Cell,Urine Few per lpf (None-Few)
[2016-11-30 17:37] LABS: Bacteria,Urine Many per hpf (None-Few); Yeast,Urine Moderate per hpf (None Seen)
[2016-11-30 17:40] LABS: Color,Urine Dark Yellow (Yellow)
[2016-11-30] MEDS: Insulin DETEMIR 100 UNIT/ML X5UNITS SQ SCH (21:01)
[2016-11-30] MEDS ORDERED: *HR* LORazepam 2 MG/ML VIAL IVP ONE (21:38)
[2016-12-01] MEDS ORDERED: *HR* LORazepam 2 MG/ML VIAL IVP ONE (00:45)
[2016-12-01] MEDS: Ipratropium/Albuterol Neb 3 ML IH SCH ×4 (04:32→22:07)
[2016-12-01] MEDS: Insulin LISPRO 300 UNITS/3 ML VIAL SQ SCH ×5 (05:08→20:02)
[2016-12-01 05:29] LABS: Basophils % 0.3 %; Calcium 8.7 mg/dL (8.6-10.8); Eosinophils # 0.2 K/mcL (0.0-0.6); Eosinophils % 2.2 %; Hematocrit 29.5 % (35.3-44.9); Hemoglobin 8.7 g/dL (11.5-15.4); Immature Granulocytes % 1.4 % (0-4); Lymphocytes # 0.7 K/mcL (0.6-4.6); Lymphocytes % 8.1 %; Mean Corpuscular HGB Conc 29.5 g/dL (31.6-35.5); Mean Corpuscular Hemoglobin 24.2 pg (28.0-33.3); Mean Corpuscular Volume 82.2 fL (83.0-100.0); Mean Platelet Volume 8.8 fL (9.4-12.4); Monocytes # 1.1 K/mcL (0.0-1.3); Monocytes % 12.3 %; Neutrophils # 6.7 K/mcL (1.6-8.9); Platelet Count 223 K/mcL (140-400); Potassium 4.1 mEq/L (3.5-4.5); Red Blood Count 3.59 M/mcL (3.82-4.97); Red Cell Distribution Width 17.8 % (11.5-14.5); Segmented Neutrophils % 75.7 %
--- NOTE | 2016-12-01 08:10 | Palliative Progress Note ---
Date of Encounter: 12/01/16 Time of Encounter: 07:30 - Assessment and plan (1) Acute encephalopathy Current Visit: No Status: Resolved Assessment and plan: This appears to wax and wane. At this time the patient is not oriented however has not been the case in the past. (2) Goals of care, counseling/discussion Current Visit: No Status: Acute Assessment and plan: The patient has been awake and alert her previously known intent has been to be a full code. Family supports this. Patient does not wish to be on any machines long-term and the family is aware of this. At this time I am unclear if the agents medical power of attorney lawyer has been accomplished or not this has been requested. Patient does not wish to have a chest tube placed. This is where the confusion about intubation has come in in that when people refer to a tube the patient thinks they are talking about a chest tube. Goals of care the patient would ultimately like to return home. PEG tube placement has been discussed with patient and family is unable to get in an adequate amount and nutrition okay with a PEG tube placement and was able to tell me this with family present. She would like to have a chance to eat and not need the PEG tube. Family is completely supportive of this. (3) Dyspnea Current Visit: No Status: Acute Assessment and plan: She has no complaint of this at this time. Qualifiers: Dyspnea type: shortness of breath Qualified Code(s): R06.02 - Shortness of breath - Time Spent With Patient Total time spent is greater than 50% in coordination of care (as documented) at patient's floor/unit and/or counseling patient: - Subjective Interval history: The patient is pleasantly confused this morning but has no complaints. States she is trying to eat, denies any pain or nausea at this time. - Constitutional Vitals: Abnormal lab results RBC 3.59 M/mcL (3.82-4.97) L 12/01/16 04:31 Hgb 8.7 g/dL (11.5-15.4) L 12/01/16 04:31 Hct 29.5 % (35.3-44.9) L 12/01/16 04:31 MCV 82.2 fL (83.0-100.0) L 12/01/16 04:31 MCH 24.2 pg (28.0-33.3) L 12/01/16 04:31 MCHC 29.5 g/dL (31.6-35.5) L 12/01/16 04:31 RDW 17.8 % (11.5-14.5) H 12/01/16 04:31 MPV 8.8 fL (9.4-12.4) L 12/01/16 04:31 Band Neutrophils % 7.3 % (0-4) H 11/26/16 03:20 Metamyelocytes % 3.6 % (0) H 11/26/16 03:20 Nucleated RBCs/100 WBC 0.2 /100 WBC (0) H 11/29/16 05:00 Hypochromasia Present (Not Present) A 11/27/16 03:00 Poikilocytosis 1+ (Not Present) A 11/26/16 03:20 Anisocytosis 1+ (Not Present) A 11/27/16 03:00 PT 13.6 Seconds (9.4-12.1) H 11/25/16 12:07 ABG pCO2 67 mmHg (35-45) H 11/29/16 04:41 ABG pO2 68 mmHg (85-104) L 11/29/16 04:41 ABG HCO3 35.3 mEQ/L (21-27) H 11/29/16 04:41 ABG Total CO2 37.4 mEq/L (20-26) H 11/29/16 04:41 ABG O2 Saturation 92 % (95-98) L 11/29/16 04:41 ABG Base Excess 7.9 mEq/L (-2.0 to 3.0) H 11/29/16 04:41 Sodium 135 mEq/L (136-145) L 12/01/16 04:31 Creatinine 2.65 mg/dL (0.57-1.11) H 12/01/16 04:31 Est GFR ( Amer) 21 (> 60) L 12/01/16 04:31 Est GFR (Non-Af Amer) 18 (> 60) L 12/01/16 04:31 Glucose 132 mg/dL (70-99) H 12/01/16 04:31 POC Glucose 252 (58-89) H 11/30/16 20:21 Iron 26 mcg/dL (50-170) L 11/23/16 04:27 % Saturation 10 % (15-50) L 11/23/16 04:27 B-Natriuretic Peptide 878 pg/mL (0-100) H 11/26/16 03:21 Albumin 2.4 g/dL (3.5-5.0) L 11/25/16 05:55 Globulin 3.8 g/dL (2.4-3.5) H 11/25/16 05:55 Albumin/Globulin Ratio 0.6 (1.1-2.2) L 11/25/16 05:55 Urine Clarity Turbid (Clear) A 11/30/16 16:10 Urine Protein 100 mg/dL (Neg-Trace) H 11/30/16 16:10 Urine Ketones Trace mg/dL (Negative) H 11/30/16 16:10 Urine Blood Large (Negative) H 11/30/16 16:10 Urine Bilirubin Moderate (Negative) H 11/30/16 16:10 Ur Leukocyte Esterase Large (Negative) H 11/30/16 16:10 Urine Microscopic RBC 3-5 per hpf (0-3) H 11/30/16 16:10 Urine Microscopic WBC TNTC per hpf (0-3) H 11/30/16 16:10 Urine Bacteria Many per hpf (None-Few) H 11/30/16 16:10 Urine Yeast Moderate per hpf (None Seen) H 11/30/16 16:10 Ur Culture Indicated? YES (NO) A 11/30/16 16:10 General appearance: Present: no acute distress - Head Head exam: Present: atraumatic, normal inspection - Eye Eye exam: Present: normal appearance - Respiratory Respiratory exam: Present: decreased breath sounds - Cardiovascular Cardiovascular exam: Present: irregular rhythm - GI/Abdominal GI/Abdominal exam: Present: normal bowel sounds. Absent: tenderness - Extremities Exam Extremities exam: Absent: tenderness - Neurological Exam Neurological exam: Present: alert. Absent: oriented X3 - Psychiatric Psychiatric exam: Absent: agitated, anxious - Skin Skin exam: Present: dry, warm Palliative Quality Palliative Quality: Screen for Code Status: Yes, Screen for Goals of Care: Yes, Screen for Pain: Yes, If Pain Regimen Started, Initiate Bowel Regimen: Yes, Screen for Nausea/Vomitting: Yes Code Status: 11/27/16 18:09 FULL [Resuscitation Status: Active] [RES] Routine Comment: Do Not Intubate Resuscitation Status: Full Code - Labs CBC & Chem 7: 12/01/16 04:31 12/01/16 04:31 Labs: Laboratory Results - last 24 hr 11/30/16 11/30/16 11/30/16 08:20 14:07 16:10 WBC RBC Hgb Hct MCV MCH MCHC RDW Plt Count MPV Immature Gran % Seg Neutrophils % Lymphocytes % Monocytes % Eosinophils % Basophils % Neutrophils # Lymphocytes # Monocytes # Eosinophils # Basophils # Sodium Potassium Chloride Carbon Dioxide BUN Creatinine Est GFR ( Amer) Est GFR (Non-Af Amer) BUN/Creatinine Ratio Glucose POC Glucose 188 H 120 H Calculated Osmolality Calcium Urine Color Dark Yellow Urine Clarity Turbid A Urine pH 5.5 Ur Specific [place] 1.023 Urine Protein 100 H Urine Glucose (UA) Normal Urine Ketones Trace H Urine Blood Large H Urine Nitrite Negative Urine Bilirubin Moderate H Urine Urobilinogen Normal Ur Leukocyte Esterase Large H Urine Microscopic RBC 3-5 H Urine Microscopic WBC TNTC H Ur Squamous Epith Cells Few Urine Bacteria Many H Urine Yeast Moderate H Ur Culture Indicated? YES A 11/30/16 11/30/16 12/01/16 16:11 20:21 04:31 WBC RBC Hgb Hct MCV MCH MCHC RDW Plt Count MPV Immature Gran % Seg Neutrophils % Lymphocytes % Monocytes % Eosinophils % Basophils % Neutrophils # Lymphocytes # Monocytes # Eosinophils # Basophils # Sodium 135 L Potassium 4.1 Chloride 98 Carbon Dioxide 29 BUN 17 Creatinine 2.65 H Est GFR ( Amer) 21 L Est GFR (Non-Af Amer) 18 L BUN/Creatinine Ratio 6 Glucose 132 H POC Glucose 153 H 252 H Calculated Osmolality 283 Calcium 8.7 Urine Color Urine Clarity Urine pH Ur Specific [place] Urine Protein Urine Glucose (UA) Urine Ketones Urine Blood Urine Nitrite Urine Bilirubin Urine Urobilinogen Ur Leukocyte Esterase Urine Microscopic RBC Urine Microscopic WBC Ur Squamous Epith Cells Urine Bacteria Urine Yeast Ur Culture Indicated? 12/01/16 04:31 WBC 8.8 RBC 3.59 L Hgb 8.7 L Hct 29.5 L MCV 82.2 L MCH 24.2 L MCHC 29.5 L RDW 17.8 H Plt Count 223 MPV 8.8 L Immature Gran % 1.4 Seg Neutrophils % 75.7 Lymphocytes % 8.1 Monocytes % 12.3 Eosinophils % 2.2 Basophils % 0.3 Neutrophils # 6.7 Lymphocytes # 0.7 Monocytes # 1.1 Eosinophils # 0.2 Basophils # 0.0 Sodium Potassium Chloride Carbon Dioxide BUN Creatinine Est GFR ( Amer) Est GFR (Non-Af Amer) BUN/Creatinine Ratio Glucose POC Glucose Calculated Osmolality Calcium Urine Color Urine Clarity Urine pH Ur Specific [place] Urine Protein Urine Glucose (UA) Urine Ketones Urine Blood Urine Nitrite Urine Bilirubin Urine Urobilinogen Ur Leukocyte Esterase Urine Microscopic RBC Urine Microscopic WBC Ur Squamous Epith Cells Urine Bacteria Urine Yeast Ur Culture Indicated? - Impressions Impressions Guidance Ultrasound 11/20/16 00:00 IMPRESSION: Successful right femoral temporary hemodialysis catheter placement using ultrasound guidance. D/ / 11/21/2016 08:42:07 [facility] Interpreting Provider: Annika Spencer MD Chest X-Ray 12/01/16 08:00 IMPRESSION: 1. Pulmonary edema, not appreciably changed compared to prior exam. 2. Persistent small bilateral pleural effusions. 3. Interval placement of a dual-lumen central line with catheter tip overlying the mid SVC. D/ / Home Fang MD / Home Fang MD Interpreting Provider: Home Fang MD - ABG Interpretation ABG results: ABG ABG pH 7.33 pH Units (7.32-7.45) 11/29/16 04:41 ABG pCO2 67 mmHg (35-45) H 11/29/16 04:41 ABG pO2 68 mmHg (85-104) L 11/29/16 04:41 ABG O2 Saturation 92 % (95-98) L 11/29/16 04:41 PT/INR, D-dimer PT 13.6 Seconds (9.4-12.1) H 11/25/16 12:07 Consult Discharge Plan - Plan Referrals: Henrry Mccullough MD [Primary Care Provider] - 12/03/16 1:20 pm ()
[2016-12-01] MEDS: OxyCODONE CONC 5 MG/0.25 ML ORAL.SYG PO PRN ×2 (08:53→21:37)
[2016-12-01] MEDS: Lactulose Oral Soln 20 GM/30 ML UDC PO SCH ×4 (08:58→20:18)
[2016-12-01] MEDS: Aspirin 81 MG TAB.CHEW PO SCH (09:04)
[2016-12-01] MEDS: APIXABAN 2.5 MG TABLET PO SCH ×2 (09:05→20:18)
[2016-12-01] MEDS: Gabapentin 100 MG CAPSULE PO SCH ×2 (09:08→20:18)
[2016-12-01] MEDS: Sucralfate 1 GM TABLET PO SCH ×2 (09:09→15:56)
[2016-12-01] MEDS: Folic Acid 1 MG TABLET PO SCH (09:09)
--- NOTE | 2016-12-01 09:17 | Internal Med Progress Note ---
Date of Encounter: 12/01/16 Time of Encounter: 09:14 - Assessment and plan (1) Dysphagia Current Visit: Yes Status: Acute Assessment and plan: Patient was noted to have dysphagia during ICU stay, likely due to prolonged hospitalization and weakness. Swallow evaluation was done and patient is cleared for mechanical soft diet with nectar thick liquids. She still continues to have poor oral intake likely due to mental status. Palliative care team has been on board, patient is currently full code and awaiting family discussion regarding possible PEG tube placement. Qualifiers: Dysphagia type: unspecified Qualified Code(s): R13.10 - Dysphagia, unspecified (2) Acute CHF Current Visit: Yes Status: Acute Assessment and plan: Volume status improving slowly with hemodialysis. Continue beta lesvia and telemetry monitoring. Fluid restriction. Supplemental oxygen. Supportive care. Qualifiers: Congestive heart failure type: diastolic Qualified Code(s): I50.31 - Acute diastolic (congestive) heart failure (3) CKD (chronic kidney disease), stage III Current Visit: Yes Status: Chronic Assessment and plan: Patient is noted to have worsening oliguric CKD. Nephrology is on board and patient has been started on hemodialysis during this admission. Received permanent hemodialysis catheter; (4) Chronic anemia Current Visit: Yes Status: Chronic (5) Obesity (BMI 30-39.9) Current Visit: Yes Status: Chronic (6) DM (diabetes mellitus), type 2 Current Visit: Yes Status: Chronic Assessment and plan: Continue Accu-Chek blood glucose monitoring with basal bolus insulin regimen. Diabetic diet. 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 mellitus usp insulin use: with computer terminal operator use Chronic kidney disease stage: stage 3 (moderate) Qualified Code(s): E11.22 - Type 2 diabetes mellitus with diabetic chronic kidney disease; N18.3 - Chronic kidney disease, stage 3 ( moderate); Z79.4 - terminal operations supervisor (current) use of insulin (7) Cirrhosis Current Visit: Yes Status: Chronic Qualifiers: Hepatic cirrhosis type: unspecified hepatic cirrhosis Ascites presence: without ascites Qualified Code(s): K74.60 - Unspecified cirrhosis of liver (8) Atrial fibrillation Current Visit: Yes Status: Chronic Assessment and plan: continue rate-control meds, long-term anticoagulation with Eliquis. Qualifiers: Atrial fibrillation type: chronic Qualified Code(s): I48.2 - Chronic atrial fibrillation (9) COPD (chronic obstructive pulmonary disease) Current Visit: Yes Status: Chronic Qualifiers: COPD type: unspecified COPD Qualified Code(s): J44.9 - Chronic obstructive pulmonary disease, unspecified (10) LITO on CPAP Current Visit: Yes Status: Chronic - Subjective Interval history: Sitting up in bed; improved dyspnea; no chest pain but appears slightly uncomfortable and fidgety; able to report her name and place but cannot answer further; cannot provide history; - Constitutional Vitals: Temp Pulse Resp BP Pulse Ox 98.6 F 81 16 153/77 97 12/01/16 04:14 12/01/16 04:14 12/01/16 04:32 12/01/16 04:14 12/01/16 04:32 General appearance: Present: A&O X 2 - Respiratory Respiratory exam: Present: rales (left basal crackles). Absent: accessory muscle use, rhonchi, wheezes - Cardiovascular Cardiovascular exam: Present: irregular rhythm, +S1, +S2, systolic murmur. Absent: diastolic murmur, gallop, rubs - GI/Abdominal GI/Abdominal exam: Present: normal bowel sounds, soft (obese), no peritoneal signs. Absent: distended, tenderness - Extremities Exam Extremities exam: Present: full ROM, pedal edema (improved pedal edema B/L), warm, radial pulses palpable and symetrical. Absent: calf tenderness, cyanotic - Neurological Exam Neurological exam: Present: altered, no focal deficits, strengths equal and symetr throughout (diffusely decreased B/L extremities). Absent: pronater drift , facial droop, speech deficit Internal Medicine: Result - Labs CBC & Chem 7: 12/01/16 04:31 12/01/16 04:31 Labs: Short CBC 12/01/16 Range/Units 04:31 WBC 8.8 (4.3-11.1) K/mcL Hgb 8.7 L (11.5-15.4) g/dL Hct 29.5 L (35.3-44.9) % Plt Count 223 (140-400) K/mcL Neutrophils # 6.7 (1.6-8.9) K/mcL BMP 12/01/16 04:31 Sodium 135 L Potassium 4.1 Chloride 98 Carbon Dioxide 29 BUN 17 Creatinine 2.65 H Glucose 132 H Calcium 8.7 Urine 11/30/16 Range/Units 16:10 Urine Color Dark Yellow (Yellow) Urine Clarity Turbid A (Clear) Urine pH 5.5 (5.0-8.0) pH Units Ur Specific [place] 1.023 (1.010-1.025) Urine Protein 100 H (Neg-Trace) mg/dL Urine Glucose (UA) Normal (Normal) mg/dL - ABG Interpretation ABG results: ABG ABG pH 7.33 pH Units (7.32-7.45) 11/29/16 04:41 ABG pCO2 67 mmHg (35-45) H 11/29/16 04:41 ABG pO2 68 mmHg (85-104) L 11/29/16 04:41 ABG O2 Saturation 92 % (95-98) L 11/29/16 04:41 PT/INR, D-dimer PT 13.6 Seconds (9.4-12.1) H 11/25/16 12:07 - Impressions Impressions Guidance Ultrasound 11/20/16 00:00 IMPRESSION: Successful right femoral temporary hemodialysis catheter placement using ultrasound guidance. D/ / 11/21/2016 08:42:07 Annika Spencer MD / [facility] Interpreting Provider: Annika Spencer MD Chest X-Ray 12/01/16 08:00 IMPRESSION: 1. Pulmonary edema, not appreciably changed compared to prior exam. 2. Persistent small bilateral pleural effusions. 3. Interval placement of a dual-lumen central line with catheter tip overlying the mid SVC. D/ / Home Fang MD / Home Fang MD Interpreting Provider: Home Fang MD - VTE Documentation of Mechanical Device: Venous foot pump, device Consult Discharge Plan - Plan Referrals: Henrry Mccullough MD [Primary Care Provider] - 12/03/16 1:20 pm ()
--- NOTE | 2016-12-01 11:19 | Nephrology Progress Note ---
Date of Encounter: 12/01/16 Time of Encounter: 11:15 - Assessment and Plan (1) MELECIO (acute kidney injury) Current Visit: No Status: Acute has Acute renal failure in the setting of underlying CKD 4, currently ESRD. Dialyzed yesterday. No acute indication for HD today Hypertension, A. fib. BP and heart rate are stable. On low-dose diltiazem and metoprolol Suggest to change Eliquis to Coumadin in view of advanced renal failure Anemia of chronic disease, continue Aranesp. Iron sat 10%, ferritin 128. Add PO IRON supplements. Subjective Principal diagnosis: Pulmonary Edema Interval history: denies chest pain or SOB. on 3 lts o2. d/w nurse, stable over night. gets agitated intermittently. remains anuric. was dialyzed yesterday, 4.6 kg was removed Objective - Vital Signs Vital signs: Vital Signs Temp Pulse Resp BP Pulse Ox 12/01/16 10:28 14 93 12/01/16 09:17 80 12/01/16 08:30 81 12 126/57 95 12/01/16 04:32 16 97 12/01/16 04:14 98.6 F 81 18 153/77 97 11/30/16 23:46 97.7 F 87 18 146/72 99 11/30/16 21:55 16 96 11/30/16 20:27 97.9 F 79 18 139/57 93 11/30/16 16:19 99.1 F 82 17 107/70 92 11/30/16 16:13 18 92 11/30/16 15:30 99.1 F 82 17 107/70 92 11/30/16 14:05 98.5 F 78 16 125/76 99 11/30/16 13:46 98.9 F 20 115/74 11/30/16 13:00 113/64 11/30/16 12:45 109/69 11/30/16 12:30 127/69 11/30/16 12:15 105/72 11/30/16 12:00 111/75 11/30/16 11:45 106/74 11/30/16 11:30 114/71 Intake and Output 11/30/16 12/01/16 12/01/16 23:59 07:59 15:59 Intake Total 50 / 50 Output Total 120 / 120 0 / 0 Balance -120 / -120 50 / 50 Intake: Oral 50 / 50 Output: Urine 0 / 0 Straight Cath 120 / 120 Other: Meal Dinner Percent of Meal Consumed 20% Stool Size Large Stool Consistency soft Stool Color Brown Blood Glucose* 252 282 - General Appearance Exam: CVS; s1s2 present, regular, no murmurs RESP; good air entry, clear anteriorly ABD; soft, NT, BS present, no organomegaly, no bruits EXT; no edema, DP pulses palpable. 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 falls asleep easily - Lab 12/01/16 04:31 12/01/16 04:31 Most recent lab results ABG pH 7.33 pH Units (7.32-7.45) 11/29/16 04:41 ABG pCO2 67 mmHg (35-45) H 11/29/16 04:41 ABG pO2 68 mmHg (85-104) L 11/29/16 04:41 ABG HCO3 35.3 mEQ/L (21-27) H 11/29/16 04:41 ABG O2 Saturation 92 % (95-98) L 11/29/16 04:41 Calcium 8.7 mg/dL (8.6-10.8) 12/01/16 04:31 Phosphorus 3.3 mg/dL (2.3-4.7) 11/22/16 05:11 - VTE Documentation of Mechanical Device: Venous foot pump, device Consult Discharge Plan - Plan Referrals: Henrry Mccullough MD [Primary Care Provider] - 12/03/16 1:20 pm ()
[2016-12-01] MEDS: Ferrous Sulfate Oral Soln 300 MG/5 ML UDC PO SCH (17:41)
[2016-12-01] MEDS: Insulin DETEMIR 100 UNIT/ML X5UNITS SQ SCH (20:18)
[2016-12-01] MEDS: Haloperidol Lactate 5 MG/ML VIAL IVP PRN (23:51)
[2016-12-02] MEDS: Ipratropium/Albuterol Neb 3 ML IH SCH ×4 (03:47→21:52)
[2016-12-02 05:02] LABS: Basophils % 0.3 %; Eosinophils # 0.3 K/mcL (0.0-0.6); Eosinophils % 3.1 %; Hematocrit 30.1 % (35.3-44.9); Hemoglobin 8.8 g/dL (11.5-15.4); Immature Granulocytes % 1.2 % (0-4); Lymphocytes # 0.8 K/mcL (0.6-4.6); Lymphocytes % 7.9 %; Mean Corpuscular HGB Conc 29.2 g/dL (31.6-35.5); Mean Corpuscular Hemoglobin 24.1 pg (28.0-33.3); Mean Corpuscular Volume 82.5 fL (83.0-100.0); Mean Platelet Volume 8.9 fL (9.4-12.4); Neutrophils # 7.7 K/mcL (1.6-8.9); Platelet Count 215 K/mcL (140-400); Red Blood Count 3.65 M/mcL (3.82-4.97); Red Cell Distribution Width 17.8 % (11.5-14.5); Segmented Neutrophils % 77.5 %
[2016-12-02] MEDS: OxyCODONE CONC 5 MG/0.25 ML ORAL.SYG PO PRN ×3 (05:13→22:37)
[2016-12-02 05:15] LABS: Calcium 8.9 mg/dL (8.6-10.8); Potassium 4.1 mEq/L (3.5-4.5)
--- NOTE | 2016-12-02 08:23 | Event Note ---
Date of Encounter: 12/02/16 Time of Encounter: 08:20 The patient appeared to be resting comfortably this morning, The patient and I and family have a meeting last week regarding the possibility of PEG tube placement. At that time the patient was awake and alert family was in agreement that the patient was able to make decisions for herself. At that time the patient stated that she was okay with the PEG tube if it was necessary to supplement her eating. He did however request that she be given a chance to eat enough to not require a PEG tube. Further family meetings are not planned for this as the family was present for this discussion and decision was made if the treating team feels the patient requires additional nutritional support that the patient cannot get in orally she is okay with the PEG tube. Did discuss this with her briefly yesterday and she was still okay with it, however at that time she was not oriented as well as she had been during the previous conversation. Do believe however that this used to be consistent with her previously known intent. Palliative care will continue to follow from a distance.
[2016-12-02] MEDS: Sucralfate 1 GM TABLET PO SCH ×2 (09:24→17:21)
[2016-12-02] MEDS: Folic Acid 1 MG TABLET PO SCH (09:24)
[2016-12-02] MEDS: APIXABAN 2.5 MG TABLET PO SCH (09:24)
[2016-12-02] MEDS: Lactulose Oral Soln 20 GM/30 ML UDC PO SCH ×4 (09:24→20:26)
[2016-12-02] MEDS: Aspirin 81 MG TAB.CHEW PO SCH (09:24)
[2016-12-02] MEDS: Gabapentin 100 MG CAPSULE PO SCH ×2 (09:24→20:28)
[2016-12-02] MEDS: Insulin LISPRO 300 UNITS/3 ML VIAL SQ SCH ×4 (09:25→21:02)
[2016-12-02] MEDS: Ferrous Sulfate Oral Soln 300 MG/5 ML UDC PO SCH ×2 (09:25→17:21)
[2016-12-02] MEDS ORDERED: Heparin 25,000 UNIT/500 ML D5W 25,000 UNIT/500 ML MLS IVC SCH ×3 (10:15→21:00)
[2016-12-02 12:07] LABS: Hematocrit 30.9 % (35.3-44.9); Mean Corpuscular HGB Conc 29.1 g/dL (31.6-35.5); Mean Corpuscular Volume 82.4 fL (83.0-100.0); Mean Platelet Volume 8.4 fL (9.4-12.4); Platelet Count 220 K/mcL (140-400); Red Blood Count 3.75 M/mcL (3.82-4.97); Red Cell Distribution Width 17.9 % (11.5-14.5)
[2016-12-02 12:12] LABS: INR 1.2; Prothrombin Time 13.4 Seconds (9.4-12.1)
[2016-12-02 12:15] LABS: Activated Partial Thrombo Time 32.4 Seconds (26.0-36.0)
--- NOTE | 2016-12-02 12:40 | Internal Med Progress Note ---
Date of Encounter: 12/02/16 Time of Encounter: 11:15 - Assessment and plan (1) Dysphagia Current Visit: Yes Status: Acute Assessment and plan: Patient was noted to have dysphagia during ICU stay, likely due to prolonged hospitalization and weakness. Swallow evaluation was done and patient is cleared for mechanical soft diet with nectar thick liquids. Her appetite seems to be currently improving and PEG tube can probably be held at this time. Mental status noted to be waxing and waning. Qualifiers: Dysphagia type: unspecified Qualified Code(s): R13.10 - Dysphagia, unspecified (2) Acute CHF Current Visit: Yes Status: Resolved Assessment and plan: Volume status improving slowly with hemodialysis. Continue beta lesvia and telemetry monitoring. Fluid restriction. Supplemental oxygen. Supportive care. Discharge planning to extended care facility. Qualifiers: Congestive heart failure type: diastolic Qualified Code(s): I50.31 - Acute diastolic (congestive) heart failure (3) CKD (chronic kidney disease), stage III Current Visit: Yes Status: Chronic Assessment and plan: Patient is noted to have worsening oliguric CKD. Nephrology is on board and patient has been started on hemodialysis during this admission. Received permanent hemodialysis catheter; (4) Chronic anemia Current Visit: Yes Status: Chronic (5) Obesity (BMI 30-39.9) Current Visit: Yes Status: Chronic (6) DM (diabetes mellitus), type 2 Current Visit: Yes Status: Chronic Assessment and plan: Continue Accu-Chek blood glucose monitoring with basal bolus insulin regimen. Diabetic diet. 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 mellitus terminal computer operator insulin use: with penitentiary use Chronic kidney disease stage: stage 3 (moderate) Qualified Code(s): E11.22 - Type 2 diabetes mellitus with diabetic chronic kidney disease; N18.3 - Chronic kidney disease, stage 3 ( moderate); Z79.4 - snf (current) use of insulin (7) Cirrhosis Current Visit: Yes Status: Chronic Qualifiers: Hepatic cirrhosis type: unspecified hepatic cirrhosis Ascites presence: without ascites Qualified Code(s): K74.60 - Unspecified cirrhosis of liver (8) Atrial fibrillation Current Visit: Yes Status: Chronic Assessment and plan: continue rate-control meds. Eliquis is not appropriate for anticoagulation in end-stage renal disease patients. We will start IV heparin drip and Coumadin at this time. Discharge planning to extended care facility on Coumadin. Qualifiers: Atrial fibrillation type: chronic Qualified Code(s): I48.2 - Chronic atrial fibrillation (9) COPD (chronic obstructive pulmonary disease) Current Visit: Yes Status: Chronic Qualifiers: COPD type: unspecified COPD Qualified Code(s): J44.9 - Chronic obstructive pulmonary disease, unspecified (10) LITO on CPAP Current Visit: Yes Status: Chronic - Subjective Interval history: Resting in bed comfortably; more alert and oriented today; no chest or abdominal pain, nausea/emesis, dyspnea; discussed about PEG tube and she refuses for now; she is also noted to have improving appetite, ate well yesterday and ate 25% breakfast this morning; - Constitutional Vitals: Temp Pulse Resp BP Pulse Ox 98.4 F 76 17 122/63 92 12/02/16 08:00 12/02/16 09:25 12/02/16 08:00 12/02/16 08:00 12/02/16 08:00 General appearance: Present: A&O X 2, answers questions appropriately - Respiratory Respiratory exam: Present: CTAB. Absent: accessory muscle use, rales, rhonchi, wheezes - Cardiovascular Cardiovascular exam: Present: RRR, +S1, +S2. Absent: diastolic murmur, gallop, rubs, systolic murmur - GI/Abdominal GI/Abdominal exam: Present: normal bowel sounds, soft (obese), no peritoneal signs. Absent: distended, tenderness - Extremities Exam Extremities exam: Present: full ROM, warm, radial pulses palpable and symetrical. Absent: calf tenderness, cyanotic, pedal edema Internal Medicine: Result - Labs CBC & Chem 7: 12/02/16 11:41 12/02/16 04:28 Labs: Short CBC 12/02/16 12/02/16 Range/Units 04:28 11:41 WBC 10.0 11.6 H (4.3-11.1) K/mcL Hgb 8.8 L 9.0 L (11.5-15.4) g/dL Hct 30.1 L 30.9 L (35.3-44.9) % Plt Count 215 220 (140-400) K/mcL Neutrophils # 7.7 (1.6-8.9) K/mcL BMP 12/02/16 04:28 Sodium 136 Potassium 4.1 Chloride 98 Carbon Dioxide 27 BUN 26 H Creatinine 3.58 H Glucose 171 H Calcium 8.9 - ABG Interpretation ABG results: ABG ABG pH 7.33 pH Units (7.32-7.45) 11/29/16 04:41 ABG pCO2 67 mmHg (35-45) H 11/29/16 04:41 ABG pO2 68 mmHg (85-104) L 11/29/16 04:41 ABG O2 Saturation 92 % (95-98) L 11/29/16 04:41 PT/INR, D-dimer PT 13.4 Seconds (9.4-12.1) H 12/02/16 11:41 - VTE Documentation of Mechanical Device: Venous foot pump, device Consult Discharge Plan - Plan Referrals: Henrry Mccullough MD [Primary Care Provider] - 12/03/16 1:20 pm ()
--- NOTE | 2016-12-02 15:28 | Nephrology Progress Note ---
Date of Encounter: 12/02/16 Time of Encounter: 15:26 - Assessment and Plan (1) MELECIO (acute kidney injury) Current Visit: No Status: Acute has Acute renal failure in the setting of underlying CKD 4, currently ESRD. Has tunneled dialysis cath in the left chest. Plan for HD name Hypertension, A. fib. BP and heart rate are stable. On low-dose diltiazem and metoprolol Anemia of chronic disease, continue Aranesp and PO iron supplements Subjective Principal diagnosis: Pulmonary Edema Interval history: Stable overnight. Appetite is better. Denies chest pain or shortness of breath Objective - Vital Signs Vital signs: Vital Signs Temp Pulse Resp BP Pulse Ox 12/02/16 13:43 98.0 F 62 18 123/66 95 12/02/16 10:28 18 96 12/02/16 09:25 76 12/02/16 08:00 98.4 F 68 17 122/63 92 12/02/16 05:15 98.6 F 72 16 114/66 96 12/02/16 04:05 98.6 F 67 16 96 12/02/16 03:47 16 96 12/02/16 01:45 98.6 F 71 15 121/68 97 12/02/16 00:11 66 15 97 12/01/16 22:07 16 97 12/01/16 20:37 72 17 95 12/01/16 19:50 98.4 F 61 17 108/79 95 12/01/16 16:19 75 12/01/16 15:50 97.6 F 75 16 118/80 99 12/01/16 15:32 18 97 Intake and Output 12/01/16 12/02/16 12/02/16 23:59 07:59 15:59 Intake Total 350 / 350 200 / 200 Output Total 0 / 0 0 / 0 Balance 350 / 350 200 / 200 Intake: Oral 350 / 350 200 / 200 Output: Urine 0 / 0 0 / 0 Other: Meal Dinner Percent of Meal Consumed 75% Weight 87.1 kg Blood Glucose* 168 157 Patient Weight 12/02/16 23:59 Weight 87.1 kg - General Appearance Exam: CVS; s1s2 present, regular RESP; good air entry, clear ABD; soft, NT, BS present, EXT; 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
[2016-12-02] MEDS ORDERED: *HR* Warfarin 7.5 MG TABLET PO SCH (18:00)
[2016-12-02] MEDS: Insulin DETEMIR 100 UNIT/ML X5UNITS SQ SCH (20:28)
[2016-12-02] MEDS ORDERED: *HR* Heparin 5,000 UNIT/ML VIAL IVP PRN ×2 (21:00)
[2016-12-02] MEDS ORDERED: *HR* Heparin 5,000 UNIT/ML VIAL IVP ONE (21:00)
[2016-12-03] MEDS: Haloperidol Lactate 5 MG/ML VIAL IVP PRN (00:20)
[2016-12-03 03:04] LABS: Basophils % 0.2 %; Eosinophils # 0.3 K/mcL (0.0-0.6); Hematocrit 29.5 % (35.3-44.9); Hemoglobin 8.6 g/dL (11.5-15.4); Immature Granulocytes % 1.3 % (0-4); Immature Platelets 1.6 % (1.1-6.1); Lymphocytes # 0.9 K/mcL (0.6-4.6); Lymphocytes % 8.8 %; Mean Corpuscular HGB Conc 29.2 g/dL (31.6-35.5); Mean Corpuscular Hemoglobin 23.8 pg (28.0-33.3); Mean Corpuscular Volume 81.5 fL (83.0-100.0); Mean Platelet Volume 8.6 fL (9.4-12.4); Monocytes # 0.9 K/mcL (0.0-1.3); Neutrophils # 7.9 K/mcL (1.6-8.9); Platelet Count 270 K/mcL (140-400); Red Blood Count 3.62 M/mcL (3.82-4.97); Red Cell Distribution Width 17.8 % (11.5-14.5); Segmented Neutrophils % 77.7 %
[2016-12-03 03:26] LABS: Anisocytosis 2+ (Not Present)
[2016-12-03 03:27] LABS: Hypochromasia Present (Not Present); Platelet Estimate Normal (Normal)
[2016-12-03 03:28] LABS: Microcytosis Present (Not Present)
[2016-12-03] MEDS: Ipratropium/Albuterol Neb 3 ML IH SCH ×3 (04:29→15:55)
[2016-12-03] MEDS: OxyCODONE CONC 5 MG/0.25 ML ORAL.SYG PO PRN (05:04)
[2016-12-03] MEDS: Sucralfate 1 GM TABLET PO SCH (08:24)
[2016-12-03] MEDS: Lactulose Oral Soln 20 GM/30 ML UDC PO SCH ×2 (08:24→14:18)
[2016-12-03] MEDS: Gabapentin 100 MG CAPSULE PO SCH (08:24)
[2016-12-03] MEDS: Aspirin 81 MG TAB.CHEW PO SCH (08:24)
[2016-12-03] MEDS: Folic Acid 1 MG TABLET PO SCH (08:25)
[2016-12-03] MEDS: Ferrous Sulfate Oral Soln 300 MG/5 ML UDC PO SCH (08:26)
[2016-12-03] MEDS: Insulin LISPRO 300 UNITS/3 ML VIAL SQ SCH ×2 (08:27→14:17)
[2016-12-03] MEDS ORDERED: 0.9 % Sodium Chloride 250 ML IVC PRN (09:06)
--- NOTE | 2016-12-03 09:06 | Nephrology Progress Note ---
Date of Encounter: 12/03/16 Time of Encounter: 09:05 - Assessment and Plan (1) CKD (chronic kidney disease), stage III Current Visit: Yes Status: Chronic Patient has acute kidney injury superimposed on chronic kidney disease without any sign of recovery. She remains dialysis dependent. She will undergo dialysis today. 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 She has no complaints. She denies any shortness of breath. She reports that she ate her breakfast well today. She is scheduled for her usual dialysis later today. Objective - Vital Signs Vital signs: Vital Signs Temp Pulse Resp BP Pulse Ox 12/03/16 07:36 97.3 F L 60 18 118/82 97 12/03/16 07:20 62 16 97 12/03/16 05:38 62 16 97 12/03/16 05:10 98.1 F 62 16 126/72 97 12/03/16 04:30 16 100 12/03/16 00:31 98.0 F 66 17 101/68 94 12/03/16 00:00 64 17 94 12/02/16 21:54 16 100 12/02/16 21:48 98.6 F 67 14 98 12/02/16 19:30 98.6 F 64 14 116/52 98 12/02/16 16:33 18 94 12/02/16 15:50 66 12/02/16 13:43 98.0 F 62 18 123/66 95 12/02/16 12:10 74 12/02/16 10:28 18 96 12/02/16 09:25 76 Intake and Output 12/02/16 12/03/16 12/03/16 23:59 07:59 15:59 Intake Total 0 / 0 240 / 240 Balance 0 / 0 240 / 240 Intake: IV Fluids 0 / 0 Heparin 25,000 UNIT/500 0 / 0 ML D5W 25,000 unit In 500 ml @ 14 UNIT/KG/HR 24. 388 mls/hr IVC .[id number] [facility] Rx#:[id number] Oral 240 / 240 Other: Meal Breakfast Percent of Meal Consumed 50% Weight 88.5 kg Blood Glucose* 219 145 Patient Weight 12/03/16 23:59 Weight 88.5 kg - General Appearance Exam: Patient is alert and oriented. She is in no acute distress. Lungs diminished breath sounds. There are some rales in the bases. Heart irregular rate and rhythm. Abdomen is benign. There is minimal if any lower extremity swelling. She has a tunnel dialysis catheter in place. - Lab 12/03/16 02:54 12/02/16 04:28 Most recent lab results ABG pH 7.33 pH Units (7.32-7.45) 11/29/16 04:41 ABG pCO2 67 mmHg (35-45) H 11/29/16 04:41 ABG pO2 68 mmHg (85-104) L 11/29/16 04:41 ABG HCO3 35.3 mEQ/L (21-27) H 11/29/16 04:41 ABG O2 Saturation 92 % (95-98) L 11/29/16 04:41 Calcium 8.9 mg/dL (8.6-10.8) 12/02/16 04:28 Phosphorus 3.3 mg/dL (2.3-4.7) 11/22/16 05:11 - VTE Documentation of Mechanical Device: Venous foot pump, device Consult Discharge Plan - Plan Referrals: Henrry Mccullough MD [Primary Care Provider] - 12/03/16 1:20 pm ()
[2016-12-03] MEDS ORDERED: *HR* Heparin 10,000 UNIT/10 ML VIAL IV PRN (14:12)
[2016-12-03] MEDS ORDERED: 0.9 % Sodium Chloride 2,000 ML ONE (14:20)
--- NOTE | 2016-12-03 16:40 | Discharge Summary ---
Date of Encounter: 12/03/16 Time of Encounter: 16:32 - Discharge Diagnosis (1) Dysphagia Priority: Primary Status: Resolved Qualifiers: Dysphagia type: oropharyngeal phase Qualified Code(s): R13.12 - Dysphagia, oropharyngeal phase (2) Acute CHF Priority: Primary Status: Resolved Qualifiers: Congestive heart failure type: diastolic Qualified Code(s): I50.31 - Acute diastolic (congestive) heart failure (3) CKD (chronic kidney disease), stage III Priority: Primary Status: Chronic (4) Chronic anemia Priority: Secondary Status: Chronic (5) Obesity (BMI 30-39.9) Priority: Secondary Status: Chronic (6) DM (diabetes mellitus), type 2 Priority: Secondary Status: Chronic 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: with long-term use Chronic kidney disease stage: on chronic dialysis Qualified Code(s): E11.22 - Type 2 diabetes mellitus with diabetic chronic kidney disease; N18.6 - End stage renal disease; Z79.4 - [facility] (current) use of insulin; Z99.2 - Dependence on renal dialysis (7) Cirrhosis Priority: Secondary Status: Chronic Qualifiers: Hepatic cirrhosis type: unspecified hepatic cirrhosis Ascites presence: without ascites Qualified Code(s): K74.60 - Unspecified cirrhosis of liver (8) Atrial fibrillation Priority: Secondary Status: Chronic Qualifiers: Atrial fibrillation type: chronic Qualified Code(s): I48.2 - Chronic atrial fibrillation (9) COPD (chronic obstructive pulmonary disease) Priority: Secondary Status: Chronic Qualifiers: COPD type: unspecified COPD Qualified Code(s): J44.9 - Chronic obstructive pulmonary disease, unspecified (10) LITO on CPAP Priority: Secondary Status: Chronic - Discharge Medications Prescriptions: Ipratropium/Albuterol Neb [Duoneb] 3 ml IH [id number] PRN 30 Days PRN Reason: Shortness Of Breath/Wheezing Ferrous Sulfate Oral Soln 300 mg PO BIDWM 30 Days Folic Acid 1 mg PO DAILY #30 tablet Quetiapine Fumarate [Seroquel] 12.5 mg PO HS #15 tablet Warfarin [Coumadin] 7.5 mg PO DAILY@1800 #5 tablet Home Medications: GlipiZIDE [Glucotrol] 10 mg PO BID 08/14/15 [History] Metoprolol [Lopressor] 12.5 mg PO BID 08/14/15 [History] Sertraline [Zoloft] 150 mg PO DAILY 08/14/15 [History] Sucralfate [Carafate] 2 gm PO BID 08/14/15 [History] Lactulose 10 gm PO QID 06/24/16 [History] Aspirin 81 mg PO DAILY 07/11/16 [History] Fluticasone/Vilanterol [Breo Ellipta 100-25 Mcg INH] 1 each IH DAILY 07/11/16 [ History] Pantoprazole Sodium [Protonix] 40 mg PO DAILY 07/11/16 [History] Diltiazem [Cardizem] 30 mg PO TID 09/20/16 [History] Gabapentin [Neurontin] 100 mg PO BID 09/20/16 [History] Sennosides [Senna] 17.2 mg PO DAILY 09/20/16 [History] Simethicone [Gas-X] 120 mg PO BID PRN 09/20/16 [History] Insulin ASPART [Novolog Flexpen] 0 - 12 units SQ TID PRN 11/13/16 [History] Ferrous Sulfate Oral Soln 300 mg PO BIDWM 30 Days 12/03/16 [Rx] Folic Acid 1 mg PO DAILY #30 tablet 12/03/16 [Rx] Insulin DETEMIR [Levemir Flextouch] 10 unit SQ HS #1 12/03/16 [Rx] Ipratropium/Albuterol Neb [Duoneb] 3 ml IH [id number] PRN 30 Days 12/03/16 [Rx] Oxycodone HCl 10 mg PO Q6H PRN #20 tablet 12/03/16 [Rx] Quetiapine Fumarate [Seroquel] 12.5 mg PO HS #15 tablet 12/03/16 [Rx] Warfarin [Coumadin] 7.5 mg PO DAILY@1800 #5 tablet 12/03/16 [Rx] Allergies/Adverse Reactions: Allergies ceftriaxone [From Rocephin] Allergy (Severe, Verified 08/14/16 17:10) Anaphylaxis Occured at [facility]. Required ICU transfer, intubation, and mechanical ventilation. ciprofloxacin [From Cipro] Allergy (Mild, Verified 08/14/16 17:10) Rash sulfamethoxazole [From Bactrim] Allergy (Verified 08/14/16 17:10) See Comments trimethoprim [From Bactrim] Allergy (Verified 08/14/16 17:10) See Comments rozeta Allergy (Uncoded 06/24/16 15:20) See Comments Date of admission: 11/15/16 18:06 Primary care physician: Henrry Mccullough MD Consults: 11/19/16 08:24 Consult to Palliative Care [CONS] Routine Comment: Multiple medical problems, not improving Consulting Provider: Palliative Care Karen 11/21/16 15:52 Consult to Speech Therapy [CONS] Routine Comment: Evaluate, develop and implement POC Reason for Consult: patient complains of difficulty chewing/ swallowing foods. Time Notified: 15:53 Call Completed: Yes 11/23/16 09:50 Consult to Interventional Radiology [CONS] Routine Consulting Provider: Radiology Interventional Cols Reason for Consult: Remove femoral tempoary dialysis cath, place tunneled dialysis cath Time Notified: 09:51 Call Completed: No 11/28/16 09:30 Consult to Dialysis [CONS] ONCE 11/28/16 14:58 Consult to Corporate Traffic Manager [CONS] Stat Reason for SW Consult: mpoa needs to be done 11/29/16 10:59 Consult to Interventional Radiology [CONS] Routine Consulting Provider: Radiology Interventional Cols Reason for Consult: Insert Tunneled Permacath for HD Time Notified: 11:00 Call Completed: Yes 11/29/16 11:00 Consult to Invasive Line Access Team [CONS] Routine Reason for Consult: Power glide Line Type: EPIV PICC line indications: Limited vascular access Time Notified: 11:01 Call Completed: Yes 11/29/16 12:14 Consult to Invasive Line Access Team [CONS] Routine Reason for Consult: limited vascular access Line Type: EPIV 11/30/16 09:15 Consult to Dialysis [CONS] ONCE 12/03/16 09:15 Consult to Dialysis [CONS] ONCE Discharging clinician: Tiffany Jeffries Anticipated date of discharge: 12/03/16 - Patient Status Disposition: Transfer SNF Condition: Good Functional capacity at discharge: uses cane/walker Overall status at discharge: patient is progressing back to baseline - Discharge Instructions Follow Up With: Henrry Mccullough MD [Primary Care Provider] - 12/12/16 5:30 pm () Additional Instructions: F/up with HD with 3 times/week- MWF - Diet and Activity Activity: as per physical therapy, wear oxygen at all times Diet: diabetic diet, low fat, low cholesterol, low salt diet, other (renal diet) Hospital course: Ms. Rodriguez is a 71 year old female with multiple medical problems who had a prolonged hospitalization and several admissions in the recent past. She was initially admitted due to worsening dyspnea and hypoxemia due to acute exacerbation of diastolic CHF in the setting of underlying COPD, CKD, LITO/OHS and pulmonary HTN. SHe failed to respond to aggressive IV diuresis and fluid restriction and continued to have worsening renal failure, oliguria and required high flow O2. Nephrology was consulted and after several attempts to modify her treatment regimen, recommended to initiate HD, and she was started on a trial of hemodialysis, which she tolerated well initially, but had to be transferred to ICU as she started having more respiratory distress with increasing O2 requirements. She underwent two separate events of left lung thoracentesis during this admission, and has been refusing chest tube and intubation. Echocardiogram was done which showed preserved EF, mild pulmonary HTN, indeterminate diastolic function. Her respiratory status gradually improved and she was transferred to step down unit. She received permanent HD catheter and is now on HD for ESRD. She also noted to have developed dysphagia due to delirium and altered mental status due dusty ICU stay and underlying medical conditions and significant deconditioning. Swallow evaluation was completed and she is cleared for mechanical soft diet and thickened liquids, and her appetite gradually improved. Palliative care team has followed patient and family closely- she is Full code except intubation and would be agreeable to pEG tube if indicated. At this time, she is recovering appropriately with improving appetite and she is stable for discharge to SNF. She was noted to be on Eliquis prior to this admission and since has been initiated on HD and this is not currently indicated in dialysis patients, so she is being discharged on Coumadin. - Time Spent with Patient Total time spent providing and/or coordinating discharge services: Greater than 30 minutes (50 min) - Constitutional Vitals: Temp Pulse Resp BP Pulse Ox 97.3 F L 97 18 108/65 96 12/03/16 07:36 12/03/16 14:47 12/03/16 14:47 12/03/16 14:47 12/03/16 14:47 General appearance: Present: A&O X 2, answers questions appropriately - Respiratory Respiratory exam: Present: CTAB. Absent: accessory muscle use, rales, rhonchi, wheezes - Cardiovascular Cardiovascular exam: Present: irregular rhythm, +S1, +S2. Absent: diastolic murmur, gallop, rubs, systolic murmur - VTE Documentation of Mechanical Device: Venous foot pump, device
--- NOTE | 2016-12-03 16:43 | Physician Discharge Referral ---
ExtendedCare Referral Info Transfer To: [facility] Provider in Charge: Tiffany Jeffries Provider in Charge after Transfer: PCP Institutional Level of Care: Skilled - Diagnosis (1) Dysphagia Priority: Primary Status: Resolved (2) Acute CHF Priority: Primary Status: Resolved (3) CKD (chronic kidney disease), stage III Priority: Primary Status: Chronic (4) Chronic anemia Priority: Secondary Status: Chronic (5) Obesity (BMI 30-39.9) Priority: Secondary Status: Chronic (6) DM (diabetes mellitus), type 2 Priority: Secondary Status: Chronic (7) Cirrhosis Priority: Secondary Status: Chronic (8) Atrial fibrillation Priority: Secondary Status: Chronic (9) COPD (chronic obstructive pulmonary disease) Priority: Secondary Status: Chronic (10) LITO on CPAP Priority: Secondary Status: Chronic Expected Duration of Placement: 3 weeks Prognosis: Fair Aware of Diagnosis: Patient, Family Aware of Prognosis: Patient, Family - Transfer Medications Prescriptions: Ipratropium/Albuterol Neb [Duoneb] 3 ml IH [id number] PRN 30 Days PRN Reason: Shortness Of Breath/Wheezing Ferrous Sulfate Oral Soln 300 mg PO BIDWM 30 Days Folic Acid 1 mg PO DAILY #30 tablet Quetiapine Fumarate [Seroquel] 12.5 mg PO HS #15 tablet Warfarin [Coumadin] 7.5 mg PO DAILY@1800 #5 tablet Home Medications: GlipiZIDE [Glucotrol] 10 mg PO BID 08/14/15 [History] Metoprolol [Lopressor] 12.5 mg PO BID 08/14/15 [History] Sertraline [Zoloft] 150 mg PO DAILY 08/14/15 [History] Sucralfate [Carafate] 2 gm PO BID 08/14/15 [History] Lactulose 10 gm PO QID 06/24/16 [History] Aspirin 81 mg PO DAILY 07/11/16 [History] Fluticasone/Vilanterol [Breo Ellipta 100-25 Mcg INH] 1 each IH DAILY 07/11/16 [ History] Pantoprazole Sodium [Protonix] 40 mg PO DAILY 07/11/16 [History] Diltiazem [Cardizem] 30 mg PO TID 09/20/16 [History] Gabapentin [Neurontin] 100 mg PO BID 09/20/16 [History] Sennosides [Senna] 17.2 mg PO DAILY 09/20/16 [History] Simethicone [Gas-X] 120 mg PO BID PRN 09/20/16 [History] Insulin ASPART [Novolog Flexpen] 0 - 12 units SQ TID PRN 11/13/16 [History] Ferrous Sulfate Oral Soln 300 mg PO BIDWM 30 Days 12/03/16 [Rx] Folic Acid 1 mg PO DAILY #30 tablet 12/03/16 [Rx] Insulin DETEMIR [Levemir Flextouch] 10 unit SQ HS #1 12/03/16 [Rx] Ipratropium/Albuterol Neb [Duoneb] 3 ml IH [id number] PRN 30 Days 12/03/16 [Rx] Oxycodone HCl 10 mg PO Q6H PRN #20 tablet 12/03/16 [Rx] Quetiapine Fumarate [Seroquel] 12.5 mg PO HS #15 tablet 12/03/16 [Rx] Warfarin [Coumadin] 7.5 mg PO DAILY@1800 #5 tablet 12/03/16 [Rx] Allergies/Adverse Reactions: Allergies ceftriaxone [From Rocephin] Allergy (Severe, Verified 08/14/16 17:10) Anaphylaxis Occured at [facility]. Required ICU transfer, intubation, and mechanical ventilation. ciprofloxacin [From Cipro] Allergy (Mild, Verified 08/14/16 17:10) Rash sulfamethoxazole [From Bactrim] Allergy (Verified 08/14/16 17:10) See Comments trimethoprim [From Bactrim] Allergy (Verified 08/14/16 17:10) See Comments rozeta Allergy (Uncoded 06/24/16 15:20) See Comments - Respiratory Orders Oxygen / L per min (2L/min via [place]) Smoking Cessation: Smoking cessation has been advised. For more information, call the [place] Tobacco Quit Line at 8-958-DMRM-NOW. - Advance Directives Code Status: Full Code - Mobility Orders Ambulate - Rehabiliation Orders Rehab Orders: ROM Exercises, Evaluation for Physical Therapy, Evaluation for Occupational Therapy, Evaluation for Speech Therapy - Diet Orders Mechanical Soft (honey-thick liquids), No Added Salt (EDGAR), No Concentrated Sweets (diabetic), Renal, Cardiac CERTIFICATION: I certify that the transfer of the above named patient to an Extended Care Facility is necessary for the continuing treatment of the diagnosis listed. The above information is true and accurate reflection of patient's current condition. Confidential - Redisclosure prohibited without a patient's written consent.
[2016-12-03 16:58] VITALS: BP 118/60
== END 2016-12-03 18:42 | DRG 291 ==
LOC: EMEROO 07:41 → 2ANU 07:41 → SUATTDRO 10:33 → 2NENU 11:15 → 2ANU 12:00 → SUATTDRO 11-15 18:06 → ICNU 11-26 09:08 → 2NNU 11-28 20:55
PROVIDERS: ADMIT Internal Medicine; ATTEND Internal Medicine
PROC: IRPERMA (2016-11-26 14:00)

== ENCOUNTER 2017-01-12 11:45 | Observation (INO) ==
--- NOTE | 2017-01-12 12:02 | Emergency Department Note ---
Disposition Clinical Impression: Hypoglycemia Fall Qualifiers: Encounter type: initial encounter Qualified Code(s): W19.XXXA - Unspecified fall, initial encounter Knee pain Qualifiers: Laterality: right Chronicity: acute Qualified Code(s): M25.561 - Pain in right knee Head injury Qualifiers: Encounter type: initial encounter Qualified Code(s): S09.90XA - Unspecified injury of head, initial encounter Osteoarthritis Qualifiers: Osteoarthritis location: knee Osteoarthritis type: unspecified Laterality: right Qualified Code(s): M17.11 - Unilateral primary osteoarthritis, right knee Hip fracture Qualifiers: Encounter type: initial encounter Fracture type: closed Laterality: right Qualified Code(s): S72.001A - Fracture of unspecified part of neck of right femur, initial encounter for closed fracture Disposition: Admitted As Inpatient Condition: Fair Fall HPI - General Chief Complaint: ED Fall Stated Complaint: fall Time Seen by Provider: 01/12/17 11:49 Source: patient, EMS Mode of arrival: EMS Limitations: no limitations Nursing Notes Reviewed: Yes Vital Signs Reviewed: Yes - History of Present Illness HPI Narrative: 71-year-old female history of A. fib on Coumadin, CHF, ESRD( follows with Dr. Frausto. New to dialysis over the past 2 weeks.) presents for evaluation after mechanical fall. She is able to accurately describe fall. Patient does stay at [facility]. [facility] staff was concerned because the patient is on Coumadin. Patient states that she was walking in the rocking chair attended to get up from the chair. Patient does state that she did get up and fall forward. Possible head injury but no LOC. Nursing staff was aware and immediately retrieve the patient placed her back in the bed. Patient denies any chest pain. Does note dyspnea at her baseline. Patients typically on 3 L nasal cannula at home. Patient is ESRD patient and has had a recent dialysis yesterday. Patients states that her pain is primarily in her right leg and right knee. EMS report the nursing staff did check her blood sugar this morning and was noted to be hypoglycemic in the 30s. Patient is a known diabetic receiving insulin. Patient did get glucagon. Patient has any fevers. No nausea or vomiting or abdominal pain. Onset (ago): Just PMO CONSULTANT Fall From: wheelchair, chair Place Fall Occurred: assisted/SNF Loss of Consciousness: none Prolonged Down Time?: no Symptoms Prior to Fall: none Context: other Location of injury: head, face, hip Severity: mild Associated symptoms (after fall): Reports: headache. Denies: neck pain - Related Data Home Medications Medication Instructions Recorded Confirmed Metoprolol [Lopressor] 12.5 mg PO BID 08/14/15 11/13/16 Sertraline [Zoloft] 150 mg PO DAILY 08/14/15 11/13/16 Sucralfate [Carafate] 2 gm PO BID 08/14/15 11/13/16 glipiZIDE [Glucotrol] 10 mg PO BID 08/14/15 11/13/16 Lactulose 10 gm PO QID 06/24/16 11/13/16 Aspirin 81 mg PO DAILY 07/11/16 11/13/16 Fluticasone/Vilanterol [Breo 1 each IH DAILY 07/11/16 11/13/16 Ellipta 100-25 Mcg INH] Pantoprazole Sodium [Protonix] 40 mg PO DAILY 07/11/16 11/13/16 Diltiazem [Cardizem] 30 mg PO TID 09/20/16 11/13/16 Gabapentin [Neurontin] 100 mg PO BID 09/20/16 11/13/16 Sennosides [Senna] 17.2 mg PO DAILY 09/20/16 11/13/16 Simethicone [Gas-X] 120 mg PO BID PRN 09/20/16 11/13/16 Insulin ASPART [Novolog Flexpen] 0 - 12 units SQ TID PRN 11/13/16 11/13/16 Previous Rx's Medication Instructions Recorded Ferrous Sulfate Oral Soln 300 mg PO BIDWM 30 Days 12/03/16 Folic Acid 1 mg PO DAILY #30 tablet 12/03/16 Insulin DETEMIR [Levemir Flextouch] 10 unit SQ HS #1 12/03/16 Ipratropium/Albuterol Neb [Duoneb] 3 ml IH [id number] PRN 30 Days 12/03/16 Oxycodone HCl 10 mg PO Q6H PRN #20 tablet 12/03/16 Quetiapine Fumarate [Seroquel] 12.5 mg PO HS #15 tablet 12/03/16 Warfarin [Coumadin] 7.5 mg PO DAILY@1800 #5 tablet 12/03/16 Allergies Allergy/AdvReac Type Severity Reaction Status Date / Time ceftriaxone [From Rocephin] Allergy Severe Anaphylaxis Verified 08/14/16 17:10 ciprofloxacin [From Cipro] Allergy Mild Rash Verified 08/14/16 17:10 sulfamethoxazole Allergy See Verified 08/14/16 17:10 [From Bactrim] Comments trimethoprim [From Bactrim] Allergy See Verified 08/14/16 17:10 Comments rozeta Allergy See Uncoded 06/24/16 15:20 Comments All systems ED: reviewed and negative except as stated. Constitutional: Reports: as per HPI. Denies: fever Eyes: Reports: as per HPI ENT ED: Reports: as per HPI Cardiovascular: Reports: as per HPI. Denies: chest pain Respiratory: Reports: as per HPI, dyspnea. Denies: cough Gastrointestinal: Reports: as per HPI. Denies: abdominal pain, nausea, vomiting Genitourinary: Reports: as per HPI Musculoskeletal: Reports: as per HPI Integumentary: Reports: as per HPI Neurological: Reports: as per HPI Psychiatric: Reports: as per HPI Endocrine: Reports: as per HPI Hematological/Lymphatic: Reports: as per HPI Allergic/Immunologic: Reports: as per HPI Fall PMH - Past Medical History Medical history: Reports: arthritis, atrial fibrillation, cirrhosis, CHF, COPD, diabetes, GERD, hyperlipidemia, hypertension, renal disease, other Surgical history: Reports: cholecystectomy, hysterectomy Psychiatric history: Reports: anxiety, panic disorder [employer] history: Reports: bilateral tubal ligation - Social History Smoking Status: Former smoker Alcohol use: Reports: none Drug use: Reports: none Physical Exam - General Limitations: no limitations General appearance: alert, in no apparent distress - Head Head exam: atraumatic, normocephalic, normal inspection - Eye Eye exam: Present: normal appearance, PERRL, EOMI, other (Left supra periorbital ecchymosis.) - ENT ENT exam: normal exam, mucous membranes moist - Neck Neck exam: Present: normal inspection, trachea midline - Chest Chest inspection: Present: normal inspection, symmetric chest wall rise, other ( Left upper Port-A-Cath placed without Stewart erythema or signs of infection.) - Respiratory Respiratory exam: Present: prolonged expiratory phase, other (CC decreased breath sounds). Absent: respiratory distress - Cardiovascular Cardiovascular exam: Present: regular rate, irregular rhythm, systolic murmur - Abdominal Exam Abdominal exam: Present: soft, Non-Tender - Extremities Exam Extremities exam: Present: normal inspection, other (Faint ecchymosis over the anterior right knee) - Expanded Lower Extremity Exam Hip/Pelvis exam: Present: normal inspection. Absent: tenderness (Mild tenderness over the right hip) Upper leg exam: Present: normal inspection. Absent: tenderness Knee exam: Present: normal inspection, tenderness, ecchymosis, knee extension intact. Absent: swelling, abrasion, deformity, crepitus, dislocation Lower leg exam: Present: normal inspection. Absent: tenderness Ankle exam: Present: normal inspection Foot/toe exam: Present: normal inspection Neurovascular/Tendon exam: Present: normal capillary refill. Absent: pulse deficit, motor deficit - Back Exam Back exam: Present: normal inspection - Neurological Exam Neurological exam: Present: alert, oriented X3 - Skin Skin exam: Present: warm, dry, intact, normal color Course Course Narrative: Patient seen and examined. Patient will get an EKG, I imaging of the head and neck. Patient also get plain films of the right hip and knee. Patient denies any pain medicine at this time. Patient did get a blood sugar recheck in emergency department was noted to be 121. Patient hypoglycemic episode likely related to her ESRD and insulin requirements. - Reevaluation(s) Reevaluation #1: Patient seen and examined. Patient denies need for pain medicine at this time. Patient's images reviewed. Questionable R hip fracture. Will order CT of the pelvis to further elucidate. Time: 14:09 Reevaluation #2: Patient's repeat repeat EKG shows A. fib with a normal rate. Low voltage. No acute changes. QTC of 402. Time: 17:14 Reevaluation #3: Patient was able to ambulate with assistance. Patient labs noted to be hypoglycemic. Time: 17:58 Additional Reevaluation(s): 1840: Patient seen and examined. Explained plan of care. Awaiting callback from hospitalist. Patient eating a diabetic meal bedside. 1900: Patient's repeat blood sugar was 102. - Consultations Consultation #1: Spoke with Dr. Marsh, recommends weight bearing as tolerated. With a walker. Time: 16:34 Vital Signs Temperature 98.1 F 01/12/17 11:47 Pulse Rate 74 01/12/17 11:47 Respiratory Rate 20 01/12/17 11:47 Blood Pressure 131/77 01/12/17 11:47 O2 Sat by Pulse Oximetry 97 01/12/17 11:47 Temperature 98.1 F 01/12/17 11:47 Pulse Rate 70 01/12/17 18:27 Respiratory Rate 18 01/12/17 19:53 Blood Pressure 127/72 01/12/17 19:53 O2 Sat by Pulse Oximetry 96 01/12/17 18:27 Oxygen Delivery Oxygen Delivery Nasal Cannula Fall - [facility] Narrative Medical decision making narrative: 71-year-old female with multiple comorbidities presents for evaluation after a mechanical fall from her chair. No LOC. This was witnessed. Patient is on anticoagulation with Coumadin and staff was concerned about a head CT. Patient was neurovascularly intact. Patient was also placed in right knee pain. Patient also had some mild right hip pain. Imaging of the right knee and hip were obtained. Patient does have a greater trochanteric fracture on the right. Discussed this finding with orthopedics who felt that the patient may tolerate the fracture with assisted weightbearing. No surgical intervention. Will need physical therapy. Patient was also found to be anemic which appears to be stable from prior lab by his. Patient was also needed be hypoglycemic. Patient had a hypoglycemic reading at [place] earlier this morning. Patient was treated with by mouth food as well as IM glucagon initially. Patient was observed in the emergency bar for several hours with multiple blood glucose readings that were unremarkable and subsequently had repeat labs which showed her to be hypoglycemic. Patient was treated again with oral intake. Patient's medication was reviewed and knows that she is on insulin but no long- acting medications noted. Patient is new to dialysis over the past 2 weeks. This may be adjusting her insulin requirement. Given the fact that the patient has had 2 documented hypoglycemic episodes and has a new finding of right hip fracture the patient will be admitted to the hospital service for further electrolyte and glucose monitoring. Physical therapy evaluation and discharge planning. - Lab Data Lab results reviewed: Yes I reviewed the patient's lab results. Result diagrams: 01/12/17 17:11 01/12/17 17:11 Lab Results 01/12/17 01/12/17 01/12/17 Range/Units 11:57 17:11 17:11 WBC 10.6 (4.3-11.1) K/mcL RBC 3.94 (3.82-4.97) M/mcL Hgb 9.3 L (11.5-15.4) g/dL Hct 32.0 L (35.3-44.9) % MCV 81.2 L (83.0-100.0) fL MCH 23.6 L (28.0-33.3) pg MCHC 29.1 L (31.6-35.5) g/dL RDW 19.2 H (11.5-14.5) % Plt Count 251 (140-400) K/mcL MPV 8.4 L (9.4-12.4) fL Immature Gran % 1.4 (0-4) % Seg Neutrophils % 79.4 % Lymphocytes % 7.4 % Monocytes % 11.0 % Eosinophils % 0.5 % Basophils % 0.3 % Neutrophils # 8.4 (1.6-8.9) K/mcL Lymphocytes # 0.8 (0.6-4.6) K/mcL Monocytes # 1.2 (0.0-1.3) K/mcL Eosinophils # 0.1 (0.0-0.6) K/mcL Basophils # 0.0 (0.0-0.2) K/mcL PT 14.9 H (9.4-12.1) Seconds INR 1.4 Sodium (136-145) mEq/L Potassium (3.5-4.5) mEq/L Chloride (98-109) mEq/L Carbon Dioxide (19-29) mEq/L BUN (7-20) mg/dL Creatinine (0.57-1.11) mg/dL Est GFR ( Amer) (> 60) Est GFR (Non-Af Amer) (> 60) BUN/Creatinine Ratio (6-26) Glucose (70-99) mg/dL POC Glucose 121 H (58-89) Calculated Osmolality (280-300) Calcium (8.6-10.8) mg/dL Blood Type Antibody Screen 01/12/17 01/12/17 01/12/17 Range/Units 17:11 17:11 18:55 WBC (4.3-11.1) K/mcL RBC (3.82-4.97) M/mcL Hgb (11.5-15.4) g/dL Hct (35.3-44.9) % MCV (83.0-100.0) fL MCH (28.0-33.3) pg MCHC (31.6-35.5) g/dL RDW (11.5-14.5) % Plt Count (140-400) K/mcL MPV (9.4-12.4) fL Immature Gran % (0-4) % Seg Neutrophils % % Lymphocytes % % Monocytes % % Eosinophils % % Basophils % % Neutrophils # (1.6-8.9) K/mcL Lymphocytes # (0.6-4.6) K/mcL Monocytes # (0.0-1.3) K/mcL Eosinophils # (0.0-0.6) K/mcL Basophils # (0.0-0.2) K/mcL PT (9.4-12.1) Seconds INR Sodium 130 L (136-145) mEq/L Potassium 5.2 H (3.5-4.5) mEq/L Chloride 94 L (98-109) mEq/L Carbon Dioxide 28 (19-29) mEq/L BUN 41 H (7-20) mg/dL Creatinine 3.26 H (0.57-1.11) mg/dL Est GFR ( Amer) 17 L (> 60) Est GFR (Non-Af Amer) 14 L (> 60) BUN/Creatinine Ratio 13 (6-26) Glucose 37 L* (70-99) mg/dL POC Glucose 102 H (58-89) Calculated Osmolality 277 L (280-300) Calcium 9.1 (8.6-10.8) mg/dL Blood Type A NEGATIVE Antibody Screen NEGATIVE - Radiology Data Radiology results reviewed: Yes I reviewed the patient's radiology results. Cervical Spine CT 01/12/17 11:56 IMPRESSION: Study is limited by motion artifact. Questionable mild loss height of this superior endplate of C7. The findings could represent a mild compression fracture. MRI may be helpful if indicated. Left pleural effusion of relatively increased density. In the setting of trauma, hemothorax could be considered. Septal thickening within the apices. Correlation for interstitial edema is recommended. D/ / Sandra Phillips Cha, MD / Sandra Phillips Cha, MD Interpreting Provider: Sandra Phillips Cha, MD Head CT 01/12/17 11:56 IMPRESSION: Motion limited exam demonstrating left frontal scalp soft tissue swelling without gross acute intracranial process. D/ / Otto Wilson MD / Otto Wilson MD Interpreting Provider: Otto Wilson MD Hip X-Ray 01/12/17 11:56 IMPRESSION: Ill-defined lucency through the base of the right greater trochanter, concerning for nondisplaced fracture. Consider further evaluation with CT of the right hip. Moderate osteoarthritis of the hips. D/ / 01/12/2017 12:55:03 David Hammond MD / ancelmo Interpreting Provider: David Hammond MD Knee X-Ray 01/12/17 11:56 IMPRESSION: No acute abnormality. Severe tricompartmental degenerative change D/ / Nick Haines MD / Nick Haines MD Interpreting Provider: Nick Haines MD Pelvis CT 01/12/17 14:11 IMPRESSION: Acute nondisplaced fracture through the right femoral greater trochanter. A majority of these types of fractures have an occult intertrochanteric component demonstrated on MRI. D/ / Colten Almonte MD / Colten Almonte MD Interpreting Provider: Colten Almonte MD - EKG Data EKG attestation: Yes I reviewed and interpreted this EKG. Rate: normal Rhythm: A.Fib Hodges/QRS: normal T wave inversions noted in: II, III When compared to previous EKG there are: no significant changes Interpretation: unchanged when compared to prior tracing (date), nonspecific ST- T wave changes S.B.A.R. - S.B.A.R. Situation: Demographics Background: Presenting Complaint Assessment: Vital Signs, Course and respsone to treatment, Patient/Family Expectation Recommendation: Barrier(s) to disposition, Recommendation based on pending studies, treatments, or consults S.B.APhilippe Report Given to: Karen Smith Arreola Repor Time: 19:00 Attestation Statement - Attestation Attestation: I examined this patient and my medical decision-making was reviewed with the [employer] ASSISTANT/PA/Advanced Practice Nurse/Resident Physician. I agree with the documented findings, disposition and treatment plan as described except to the extent set forth below. 71-year-old female presents ED because of injuries from a fall. She was in a chair at a assisted and she slid from it. She was found on the floor with bruising to the left side of her face and head. Mildly confused. Complains of pain in the right hip. No new chest pain or change from her baseline dyspnea. No abdominal pain. No vomiting. She does have end-stage renal failure currently on dialysis which was started within the last 2 weeks. No change in medications. EMS found her with glucose of 37 and she was given glucagon. Patient is awake and able to answer questions. Pleasant elderly female, slight tachypnea. Able to answer most questions. Oropharynx is clear moist membranes moist. Neck is supple and nontender. Moderate ecchymosis to the left side of her face lateral to the left orbit. No ocular injury. No hyphema. Trachea is midline. Chest with mild scattered expiratory wheezes. Decent air entry bilaterally. Cardiac exam irregular, no murmurs appreciated. Abdomen soft, nondistended, nontender. Mild tenderness to right hip. Was ordered a meal tray which was delayed and she had another episode of hypoglycemia. CT of her head and neck were negative for any acute process but there was a notation of left-sided pleural effusion which is been present on multiple prior imaging studies. Small subtle fracture of the greater trochanter of the right hip was noted. CT confirms this fracture without any other fractures of the hip. She is admitted for monitoring of her glycemic status and initiation of therapy for the hip fracture.
[2017-01-12 17:37] LABS: Basophils % 0.3 %; Eosinophils # 0.1 K/mcL (0.0-0.6); Eosinophils % 0.5 %; Hemoglobin 9.3 g/dL (11.5-15.4); Immature Granulocytes % 1.4 % (0-4); Lymphocytes # 0.8 K/mcL (0.6-4.6); Lymphocytes % 7.4 %; Mean Corpuscular HGB Conc 29.1 g/dL (31.6-35.5); Mean Corpuscular Hemoglobin 23.6 pg (28.0-33.3); Mean Corpuscular Volume 81.2 fL (83.0-100.0); Mean Platelet Volume 8.4 fL (9.4-12.4); Monocytes # 1.2 K/mcL (0.0-1.3); Neutrophils # 8.4 K/mcL (1.6-8.9); Platelet Count 251 K/mcL (140-400); Red Blood Count 3.94 M/mcL (3.82-4.97); Red Cell Distribution Width 19.2 % (11.5-14.5); Segmented Neutrophils % 79.4 %
[2017-01-12 17:44] LABS: INR 1.4; Prothrombin Time 14.9 Seconds (9.4-12.1)
[2017-01-12 17:57] LABS: Calcium 9.1 mg/dL (8.6-10.8); Potassium 5.2 mEq/L (3.5-4.5)
[2017-01-12] MEDS ORDERED: Naloxone 0.4 MG/ML INJ IVP PRN (21:53)
[2017-01-12] MEDS ORDERED: Dextrose Gel 15 GM PO PRN ×2 (22:00)
[2017-01-12] MEDS ORDERED: D5% in Water 1,000 ML IVC PRN (22:00)
[2017-01-12] MEDS ORDERED: *HR* Dextrose 50 % in Water (Syg) 50 ML SYRINGE IVP PRN (22:00)
[2017-01-12] MEDS ORDERED: Simethicone 80 MG TAB.CHEW PO PRN (22:01)
[2017-01-12] MEDS ORDERED: Ipratropium/Albuterol Neb 3 ML IH PRN (22:01)
[2017-01-12] MEDS: *HR* OxyCODONE Immed Rel 5 MG TABLET PO PRN (22:52)
--- NOTE | 2017-01-12 23:03 | Internal Med History&Physical ---
Date of Encounter: 01/12/17 Time of Encounter: 20:00 Assessment and Plan (1) Hypoglycemia Current visit: Yes Status: Acute Patient has diabetes on insulin. Was found hypoglycemia in emergency room. - We will hold insulin for now. - Closely monitor glucose level every 4 hours. - Glucose supplement as needed, if glucose is low. - May restart insulin when her glucose level is stabilized (2) End stage renal disease Current visit: Yes Status: Acute Recently started hemodialysis, schedule is Saturday, had hemodialysis yesterday. follow-up with Dr. Serna (3) DVT prophylaxis Current visit: No Status: Acute EPCD. Pt was on Coumadin for A. fib, but will hold the Coumadin right now because she has a recent fall, and CT C-spine suspect right hemothorax. (4) Pleural effusion Current visit: No Status: Chronic Patient has a chronic pleural effusion. However, this time CT C-spine suspected right-sided hemothorax. Patient's vitals are stable, hemoglobin stable, and she denies right-sided chest injury/pain. Will closely monitor patient's vital sign and hemoglobin change. Pulmonary Function Technologist thoracic surgeon if necessary. (5) Atrial fibrillation Current visit: No Status: Chronic HR is well-controlled. Coumadin is on hold now because a recent fall and suspected hemothorax Qualifiers: Atrial fibrillation type: chronic Qualified Code(s): I48.2 - Chronic atrial fibrillation (6) Type 2 diabetes mellitus with diabetic chronic kidney disease Current visit: No Status: Acute Keep patient on diabetic diet. Hold insulin because of hypoglycemia. Closely monitor glucose level. Qualifiers: Diabetes mellitus residential insulin use: without residential use Chronic kidney disease stage: stage 3 (moderate) Qualified Code(s): E11.22 - Type 2 diabetes mellitus with diabetic chronic kidney disease; N18.3 - Chronic kidney disease, stage 3 (moderate) (7) Fall Current visit: Yes Status: Acute Mechanical fall, denies loss of consciousness. PTOT evaluation. - CT c-spine suspect C7 mild compression fracture, will order MRI in AM. Qualifiers: Encounter type: initial encounter Qualified Code(s): W19.XXXA - Unspecified fall, initial encounter (8) Hip fracture Current visit: Yes Status: Acute ER called orthopedics Dr Wu, no surgery. Qualifiers: Encounter type: initial encounter Fracture type: closed Laterality: right Qualified Code(s): S72.001A - Fracture of unspecified part of neck of right femur, initial encounter for closed fracture Internal Medicine - H&P: HPI Chief complaint: Fall Admitted From: Long-term Nursing Facility Plans for Post Hospital Care: [facility] History of present illness: Ms. Rodriguez is a 71 year old female present to ER for mechanical fall. Patient said she seated and sleep in recliners and fell forward, with hit on head. Patient denies loss of consciousness. In Emergency room, patient was found to hypoglycemia with glucose level 37. Her glucose level increased to over 100 after eating some snacks. Pelvis CAT scan shows right femoral great trochanter non-displaced fracture, ER doctor called orthopedic doctor Kristan, and was instructed no surgery, weight bearing as tolerated. Patient was admitted for hypoglycemia and fall. I discussed the CODE STATUS with patient. She is a full code. Past Med Surg Social Fam HX - Past Medical History Medical history: arthritis, atrial fibrillation, cirrhosis, CHF, COPD, diabetes , GERD, hyperlipidemia, hypertension, renal disease, other Psychiatric history: anxiety, panic disorder - Past Surgical History Surgical History: cholecystectomy, hysterectomy - Social History Smoking Status: Never smoker Smokeless Tobacco Status: No Alcohol use: none Drug use: none - Family History Mother Living Status: Age at : 89 Cause of : ulcerative colitis, heart failure Hx Family Cardiac Disorders: Yes Hx Family GI Disorders: Yes Hx Family Endocrine Disorder: Yes Father Living Status: Age at : 80 Cause of : cardiac and leukemia Hx Family Cardiac Disorders: Yes Hx Family Cancer: Yes Sister Living Status: Still Living Hx Family Cancer: Yes (Breast Cancer, age 40's) Hx Family Endocrine Disorder: Yes (diabetes mellitus) Brother Living Status: Still Living Hx Family Cardiac Disorders: No Hx Family Respiratory Disorders: No Hx Family Cancer: No Hx Family GI Disorders: No Hx Family Endocrine Disorder: Yes Hx Family Neuromuscular Disorders: No Hx Family Neurologic Disorders: No Hx Family HEENT Disorders: No Hx Family Autoimmune Disorders: No Internal Medicine - H&P: Meds Metoprolol [Lopressor] 12.5 mg PO DAILY 08/14/15 [History] Sertraline [Zoloft] 150 mg PO DAILY 08/14/15 [History] Sucralfate [Carafate] 2 gm PO BID 08/14/15 [History] glipiZIDE [Glucotrol] 10 mg PO BID 08/14/15 [History] Lactulose 10 gm PO QID 06/24/16 [History] Aspirin 81 mg PO DAILY 07/11/16 [History] Fluticasone/Vilanterol [Breo Ellipta 100-25 Mcg INH] 1 each IH DAILY 07/11/16 [ History] Pantoprazole Sodium [Protonix] 40 mg PO DAILY 07/11/16 [History] Diltiazem [Cardizem] 30 mg PO TID 09/20/16 [History] Gabapentin [Neurontin] 100 mg PO BID 09/20/16 [History] Sennosides [Senna] 17.2 mg PO DAILY 09/20/16 [History] Simethicone [Gas-X] 80 mg PO BID PRN 09/20/16 [History] Insulin ASPART [Novolog Flexpen] 0 - 12 units SQ TID PRN 11/13/16 [History] Folic Acid 1 mg PO DAILY #30 tablet 12/03/16 [Rx] Ipratropium/Albuterol Neb [Duoneb] 3 ml IH [id number] PRN 30 Days 12/03/16 [Rx] Oxycodone HCl 10 mg PO Q6H PRN #20 tablet 12/03/16 [Rx] Ferrous Gluconate 324 mg PO TID 01/12/17 [History] Warfarin [Coumadin] 2 mg PO DAILY@1800 01/12/17 [History] Allergies ceftriaxone [From Rocephin] Allergy (Severe, Verified 08/14/16 17:10) Anaphylaxis Occured at [facility]. Required ICU transfer, intubation, and mechanical ventilation. ciprofloxacin [From Cipro] Allergy (Mild, Verified 08/14/16 17:10) Rash sulfamethoxazole [From Bactrim] Allergy (Verified 08/14/16 17:10) See Comments trimethoprim [From Bactrim] Allergy (Verified 08/14/16 17:10) See Comments rozeta Allergy (Uncoded 06/24/16 15:20) See Comments All Systems PM: A 10-system review of systems was performed and is negative for pertinent findings except as documented above in the HPI. - Constitutional Constitutional: no chills, no fever(s), no night sweats - EENT Eyes: no change in vision, no discharge, no pain, no photophobia Ears: no ear discharge, no ear pain, no tinnitus Nose, mouth and throat: no dysphagia, no nasal discharge, no neck pain, no sore throat - Cardiovascular Cardiovascular ROS IM: no chest pain, no diaphoresis, no dyspnea, no lightheadedness, no palpitations, no syncope - Respiratory Respiratory: no cough, no dyspnea, no wheezing, no excessive phlegm production - Gastrointestinal Gastrointestinal: no abdominal pain, no diarrhea, no hematemesis, no hematochezia, no melena, no nausea, no vomiting - Genitourinary Genitourinary: no change in urinary stream, no dysuria, no flank pain, no hematuria - Musculoskeletal Musculoskeletal ROS IM: no numbness, no tingling - Integumentary Integumentary IM: no rash, no unusual bruising - Neurological Neurological ROS: no confusion, no convulsions, no focal weakness, no numbness, no tingling, no tremor(s) - Hematologic/Lymphatic Hematologic/Lymphatic: no easy bruising - Constitutional Vitals: Temp Pulse Resp BP Pulse Ox 98.0 F 81 18 146/79 99 01/12/17 21:05 01/12/17 21:05 01/12/17 21:05 01/12/17 21:05 01/12/17 21:05 General appearance: Present: A&O X 3, no acute distress, answers questions appropriately - Head Head exam: Present: atraumatic, normocephalic Additional comments: Bruise on left tadeo-obital area - Eye Eye exam: Present: PERRL, conjuntiva pink, sclera anicteric Pupils: Present: PERRL - Neck Neck exam general surgery: Present: supple, trachea midline. Absent: lymphadenopathy - Respiratory Respiratory exam: Present: CTAB. Absent: accessory muscle use, rales, rhonchi, wheezes - Cardiovascular Cardiovascular exam: Present: irregular rhythm, +S1, +S2. Absent: diastolic murmur, gallop, rubs, systolic murmur - GI/Abdominal GI/Abdominal exam: Present: normal bowel sounds, soft, no peritoneal signs. Absent: distended, tenderness - Extremities Exam Extremities exam: Present: warm, radial pulses palpable and symetrical. Absent : calf tenderness, cyanotic, pedal edema - Neurological Exam Neurological exam: Present: CN II-XII intact, oriented X3, no focal deficits. Absent: pronater drift, facial droop, speech deficit - Skin Skin exam: Present: dry, intact Internal Med - H&P Results - Labs CBC & Chem 7: 01/12/17 17:11 01/12/17 17:11 - EKG Data -: EKG Interpreted by Myself Rate: normal (A Fib)
[2017-01-13] MEDS: *HR* OxyCODONE Immed Rel 5 MG TABLET PO PRN ×3 (05:36→17:43)
[2017-01-13 06:16] LABS: Basophils % 0.3 %; Eosinophils # 0.1 K/mcL (0.0-0.6); Eosinophils % 0.7 %; Hematocrit 31.7 % (35.3-44.9); Hemoglobin 9.1 g/dL (11.5-15.4); Immature Platelets 1.4 % (1.1-6.1); Lymphocytes # 0.7 K/mcL (0.6-4.6); Lymphocytes % 6.9 %; Mean Corpuscular HGB Conc 28.7 g/dL (31.6-35.5); Mean Corpuscular Hemoglobin 23.4 pg (28.0-33.3); Mean Corpuscular Volume 81.5 fL (83.0-100.0); Mean Platelet Volume 8.5 fL (9.4-12.4); Monocytes # 1.2 K/mcL (0.0-1.3); Neutrophils # 7.7 K/mcL (1.6-8.9); Platelet Count 286 K/mcL (140-400); Red Blood Count 3.89 M/mcL (3.82-4.97); Red Cell Distribution Width 19.2 % (11.5-14.5); Segmented Neutrophils % 78.1 %
[2017-01-13 06:20] LABS: INR 1.3; Prothrombin Time 14.4 Seconds (9.4-12.1)
[2017-01-13 06:28] LABS: Magnesium 2.2 mg/dL (1.6-2.6)
[2017-01-13 06:37] LABS: Potassium 5.8 mEq/L (3.5-4.5)
[2017-01-13 07:37] LABS: Platelet Estimate Normal (Normal)
[2017-01-13 07:42] LABS: Anisocytosis 1+ (Not Present); Hypochromasia Present (Not Present)
[2017-01-13] MEDS: Sucralfate 1 GM TABLET PO SCH ×2 (07:48→21:12)
[2017-01-13] MEDS: Gabapentin 100 MG CAPSULE PO SCH ×2 (07:49→21:13)
[2017-01-13] MEDS: Folic Acid 1 MG TABLET PO SCH (07:49)
[2017-01-13] MEDS: Sennosides 8.6 MG TABLET PO SCH (07:49)
[2017-01-13] MEDS: Lactulose Oral Soln 20 GM/30 ML UDC PO SCH ×4 (07:51→21:13)
[2017-01-13] MEDS: Acetaminophen 325 MG TABLET PO PRN ×2 (07:59→21:13)
--- NOTE | 2017-01-13 15:05 | Internal Med Progress Note ---
Date of Encounter: 01/13/17 Time of Encounter: 15:01 - Assessment and plan (1) Hip fracture Current Visit: Yes Status: Acute Assessment and plan: undisplaced rt. femoral neck fracture. ortho consult may not need surgical intervention. ensure DVT prophylaxis. bedside PT/OT Qualifiers: Encounter type: initial encounter Fracture type: closed Laterality: right Qualified Code(s): S72.001A - Fracture of unspecified part of neck of right femur, initial encounter for closed fracture (2) Chronic diastolic (congestive) heart failure Current Visit: No Status: Acute Assessment and plan: will restart home meds appears to be in mild respiratory distress will start lasix iV, has diastolic HF, last EF with preserved EF. (3) Obesity (BMI 30-39.9) Current Visit: No Status: Chronic (4) Pleural effusion Current Visit: No Status: Chronic Assessment and plan: has moderate pleural EF, will observe with lasix' most likely 2/2 CHF as its bilateral. if worsening, will consider tapping. less likely hemothorax as per CT chest. - Subjective Interval history: seen at the bedside, c/o generalized body pain, mild sob. has a black eye on the left, presented s/p fall. - Constitutional Vitals: Temp Pulse Resp BP Pulse Ox 97.6 F 73 16 138/51 95 01/13/17 14:19 01/13/17 14:19 01/13/17 14:19 01/13/17 14:19 01/13/17 14:19 General appearance: Present: A&O X 3, no acute distress, answers questions appropriately Exam: black eye on left side neck- supple chest- occ wheezing b/l, decreased breath sounds on right basal zone. CVS-s1 and s2, no mr/g abd-soft, non tender, bs are present ext- mild pedal edema neuro- no focal deficit, alert , awake and orientedx3. Internal Medicine: Result - Labs CBC & Chem 7: 01/13/17 05:51 01/13/17 05:51 Labs: Short CBC 01/13/17 Range/Units 05:51 WBC 9.9 (4.3-11.1) K/mcL Hgb 9.1 L (11.5-15.4) g/dL Hct 31.7 L (35.3-44.9) % Plt Count 286 (140-400) K/mcL Neutrophils # 7.7 (1.6-8.9) K/mcL BMP 01/13/17 05:51 Sodium 127 L Potassium 5.8 H Chloride 93 L Carbon Dioxide 23 BUN 44 H Creatinine 3.62 H Glucose 116 H Calcium 9.0 - ABG Interpretation ABG results: PT/INR, D-dimer PT 14.4 Seconds (9.4-12.1) H 01/13/17 05:51 - Impressions Impressions Chest CT 01/13/17 12:21 IMPRESSION: Moderate left and small right pleural effusions, with simple density, arguing against hemothorax. Bilateral multifocal consolidation is again seen, for which some considerations include pneumonia, atelectasis, or edema. Given the persistence of mediastinal adenopathy, malignancy cannot be excluded. Atherosclerosis, including coronary artery calcifications. Splenomegaly. D/ / Otto Wilson MD / Otto Wilson MD Interpreting Provider: Otto Wilson MD - VTE Documentation of Mechanical Device: Intermittent pneumatic compression device Consult Discharge Plan - Plan Referrals: Henrry Mccullough MD [Primary Care Provider] -
--- NOTE | 2017-01-13 16:20 | Orthopedic Consult Note ---
Date of Encounter: 01/13/17 Time of Encounter: 16:18 Assessment and Plan (1) Hip fracture Current Visit: Yes Status: Acute Right hip greater trochanteric fracture. This is a stable fracture present. The patient may be weightbearing as tolerated. I recommend a Physical Therapy consultation and the use of a walker. No further intervention required unless patient should have increasing pain. Otherwise have patient follow-up at that the [facility] in 2 weeks. Qualifiers: Encounter type: initial encounter Fracture type: closed Laterality: right Qualified Code(s): S72.001A - Fracture of unspecified part of neck of right femur, initial encounter for closed fracture (2) Arthritis of knee, right Current Visit: Yes Status: Chronic Patient has advanced arthritic changes. Physical therapy NSAIDs when necessary if allowed History of Present Illness Chief complaint: Right hip and knee pain after fall HPI: Ms. Rodriguez is a 71 year old female, who is a resident at [place], the patient fell asleep in a rocking chair and was getting up when she lost her balance and falling down. Patient playing of pain to her right hip and right knee. She had multiple bruises stem is very concerned she was on Coumadin. She is [facility]'s room where she had x-rays and CT scan done. The patient recalls a fall and denies loss of consciousness afterwards. She reports no chest pain or shortness of breath. Past Med Surg Social Fam HX - Past Medical History Medical history: arthritis, atrial fibrillation, cirrhosis, CHF, COPD, diabetes , GERD, hyperlipidemia, hypertension, renal disease, other Psychiatric history: anxiety, panic disorder - Past Surgical History Surgical History: cholecystectomy, hysterectomy - Social History Smoking Status: Never smoker Smokeless Tobacco Status: No Alcohol use: none Drug use: none - Family History Mother Living Status: Age at : 89 Cause of : ulcerative colitis, heart failure Hx Family Cardiac Disorders: Yes Hx Family GI Disorders: Yes Hx Family Endocrine Disorder: Yes Father Living Status: Age at : 80 Cause of : cardiac and leukemia Hx Family Cardiac Disorders: Yes Hx Family Cancer: Yes Sister Living Status: Still Living Hx Family Cancer: Yes (Breast Cancer, age 40's) Hx Family Endocrine Disorder: Yes (diabetes mellitus) Brother Living Status: Still Living Hx Family Cardiac Disorders: No Hx Family Respiratory Disorders: No Hx Family Cancer: No Hx Family GI Disorders: No Hx Family Endocrine Disorder: Yes Hx Family Neuromuscular Disorders: No Hx Family Neurologic Disorders: No Hx Family HEENT Disorders: No Hx Family Autoimmune Disorders: No Medications and Allergies Metoprolol [Lopressor] 12.5 mg PO BID 08/14/15 [History] Sertraline [Zoloft] 150 mg PO DAILY 08/14/15 [History] Sucralfate [Carafate] 2 gm PO BID 08/14/15 [History] glipiZIDE [Glucotrol] 10 mg PO BID 08/14/15 [History] Lactulose 10 gm PO QID 06/24/16 [History] Aspirin 81 mg PO DAILY 07/11/16 [History] Fluticasone/Vilanterol [Breo Ellipta 100-25 Mcg INH] 1 puff IH DAILY 07/11/16 [ History] Pantoprazole Sodium [Protonix] 40 mg PO DAILY 07/11/16 [History] Diltiazem [Cardizem] 30 mg PO TID 09/20/16 [History] Gabapentin [Neurontin] 100 mg PO BID 09/20/16 [History] Sennosides [Senna] 17.2 mg PO DAILY 09/20/16 [History] Simethicone [Gas-X] 80 mg PO BID PRN 09/20/16 [History] Insulin ASPART [Novolog Flexpen] 0 - 12 units SQ TID PRN 11/13/16 [History] Folic Acid 1 mg PO DAILY #30 tablet 12/03/16 [Rx] Ipratropium/Albuterol Neb [Duoneb] 3 ml IH [id number] PRN 30 Days 12/03/16 [Rx] Oxycodone HCl 10 mg PO Q6H PRN #20 tablet 12/03/16 [Rx] Ferrous Gluconate 324 mg PO TID 01/12/17 [History] Warfarin [Coumadin] 2 mg PO QPM 01/12/17 [History] Allergies ceftriaxone [From Rocephin] Allergy (Severe, Verified 08/14/16 17:10) Anaphylaxis Occured at [facility]. Required ICU transfer, intubation, and mechanical ventilation. ciprofloxacin [From Cipro] Allergy (Mild, Verified 08/14/16 17:10) Rash sulfamethoxazole [From Bactrim] Allergy (Verified 08/14/16 17:10) See Comments trimethoprim [From Bactrim] Allergy (Verified 08/14/16 17:10) See Comments rozeta Allergy (Uncoded 06/24/16 15:20) See Comments All Systems Reviewed: A 10-system review of systems was performed and is negative for pertinent findings except as documented above in the HPI. Physical Exam - Constitutional Vitals: Temp Pulse Resp BP Pulse Ox 97.6 F 73 16 138/51 95 01/13/17 14:19 01/13/17 14:19 01/13/17 14:19 01/13/17 14:19 01/13/17 14:19 General appearance IM: A&O X 3, obese Exam: The patient presents hospital bed. Head: Normocephalic, left-sided periorbital ecchymosis The bilateral upper extremities: Patient has multiple ecchymotic spots but no gross tenderness over the long bones and joints, and full range of motion of the major joints Right lower extremity: Positive tenderness of the lateral aspect of the hip, she has pain-free range of motion of the hip. Patient is diffuse tenderness around the right knee, there is no bruising and no swelling, she has good range of motion with minimal discomfort. Calf is soft nontender good motion of the ankle. Neurovascular intact distally Left lower extremity: Normal exam with no tenderness, good range of motion and neurovascular intact. Results - Labs Result Diagrams: 01/13/17 05:51 01/13/17 05:51 Labs: Abnormal lab results Hgb 9.1 g/dL (11.5-15.4) L 01/13/17 05:51 Hct 31.7 % (35.3-44.9) L 01/13/17 05:51 MCV 81.5 fL (83.0-100.0) L 01/13/17 05:51 MCH 23.4 pg (28.0-33.3) L 01/13/17 05:51 MCHC 28.7 g/dL (31.6-35.5) L 01/13/17 05:51 RDW 19.2 % (11.5-14.5) H 01/13/17 05:51 MPV 8.5 fL (9.4-12.4) L 01/13/17 05:51 Hypochromasia Present (Not Present) A 01/13/17 05:51 Anisocytosis 1+ (Not Present) A 01/13/17 05:51 PT 14.4 Seconds (9.4-12.1) H 01/13/17 05:51 Sodium 127 mEq/L (136-145) L 01/13/17 05:51 Potassium 5.8 mEq/L (3.5-4.5) H 01/13/17 05:51 Chloride 93 mEq/L (98-109) L 01/13/17 05:51 BUN 44 mg/dL (7-20) H 01/13/17 05:51 Creatinine 3.62 mg/dL (0.57-1.11) H 01/13/17 05:51 Est GFR ( Amer) 15 (> 60) L 01/13/17 05:51 Est GFR (Non-Af Amer) 12 (> 60) L 01/13/17 05:51 Glucose 116 mg/dL (70-99) H 01/13/17 05:51 POC Glucose 126 (58-89) H 01/13/17 05:40 Calculated Osmolality 276 (280-300) L 01/13/17 05:51 H & H 01/13/17 Range/Units 05:51 Hgb 9.1 L (11.5-15.4) g/dL Hct 31.7 L (35.3-44.9) % All other labs normal. - Diagnostic results Hip CT: image reviewed (Right hip nondisplaced greater trochanteric fracture) Knee x-ray: image reviewed (Right knee advanced osteoarthritis) Consult Discharge Plan - Plan Referrals: Henrry Mccullough MD [Primary Care Provider] -
[2017-01-13] MEDS: Furosemide 20 MG/2 ML VIAL IVP SCH (21:13)
[2017-01-14] MEDS: *HR* OxyCODONE Immed Rel 5 MG TABLET PO PRN ×4 (00:08→22:33)
--- NOTE | 2017-01-14 08:10 | Electrocardiograph Report ---
[place] [id number] Test Date: 2017-01-12 Pat Name: Jaimee Rodriguez Department: 102 Room: [facility] Gender: F Miter Operator: Aston : 1945 Requested By: Elizabeth Royal Order Number: [id number] Reading MD: Colten Issa DO Measurements Intervals [place] Rate: 70 P: CT: 0 QRS: -15 QRSD: 84 T: 50 QT: 380 QTc: 401 Interpretive Statements ATRIAL FIBRILLATION WITH ABERRANT CONDUCTION OR VENTRICULAR PREMATURE COMPLEXES LOW QRS VOLTAGE IN EXTREMITY LEADS Electronically Signed On 01-14-2017 8:09:17 EDT by Colten Issa DO
[2017-01-14] MEDS: Lactulose Oral Soln 20 GM/30 ML UDC PO SCH ×4 (08:18→22:38)
[2017-01-14] MEDS: Sennosides 8.6 MG TABLET PO SCH (08:20)
[2017-01-14] MEDS: Sucralfate 1 GM TABLET PO SCH ×2 (08:21→22:33)
[2017-01-14] MEDS: Folic Acid 1 MG TABLET PO SCH (08:21)
[2017-01-14] MEDS: Gabapentin 100 MG CAPSULE PO SCH ×2 (08:21→22:32)
[2017-01-14] MEDS: Furosemide 20 MG/2 ML VIAL IVP SCH ×2 (08:22→22:38)
--- NOTE | 2017-01-14 08:59 | Nephrology Consult Note ---
Date of Encounter: 01/14/17 Time of Encounter: 08:57 Assessment and Plan (1) End-stage renal disease Current Visit: Yes Status: Acute The patient is stable from a renal perspective. Potassium is 5.8. She will undergo dialysis today with a 2K bath. She can be transferred down to 2 a since she has been deemed a nonsurgical candidate by orthopedics. Hemoglobin is 9.1. She will be placed on Aranesp for her anemia. (2) Closed right hip fracture Current Visit: Yes Status: Acute Qualifiers: Encounter type: initial encounter Qualified Code(s): S72.001A - Fracture of unspecified part of neck of right femur, initial encounter for closed fracture (3) Atrial fibrillation Current Visit: No Status: Chronic Qualifiers: Atrial fibrillation type: chronic Qualified Code(s): I48.2 - Chronic atrial fibrillation History of Present Illness - History of Present Illness This is a 71-year-old female with end-stage renal disease. She receives dialysis every Saturday in [place]. Patient was admitted with a right hip fracture after a fall at the [facility]. Patient reports she was sitting in a chair at the [facility]. She thinks she fell asleep and subsequently fell out of her chair. She presented with a right hip fracture. Also periorbital ecchymosis. Currently she complains of some right hip pain. She denies any neck pain. She is scheduled for her usual dialysis today. Past Med Surg Social Fam HX - Past Medical History Medical history: arthritis, atrial fibrillation, cirrhosis, CHF, COPD, diabetes , GERD, hyperlipidemia, hypertension, renal disease, other Psychiatric history: anxiety, panic disorder - Past Surgical History Surgical History: cholecystectomy, hysterectomy - Social History Smoking Status: Never smoker Smokeless Tobacco Status: No Alcohol use: none Drug use: none - Family History Mother Living Status: Age at : 89 Cause of : ulcerative colitis, heart failure Hx Family Cardiac Disorders: Yes Hx Family GI Disorders: Yes Hx Family Endocrine Disorder: Yes Father Living Status: Age at : 80 Cause of : cardiac and leukemia Hx Family Cardiac Disorders: Yes Hx Family Cancer: Yes Sister Living Status: Still Living Hx Family Cancer: Yes (Breast Cancer, age 40's) Hx Family Endocrine Disorder: Yes (diabetes mellitus) Brother Living Status: Still Living Hx Family Cardiac Disorders: No Hx Family Respiratory Disorders: No Hx Family Cancer: No Hx Family GI Disorders: No Hx Family Endocrine Disorder: Yes Hx Family Neuromuscular Disorders: No Hx Family Neurologic Disorders: No Hx Family HEENT Disorders: No Hx Family Autoimmune Disorders: No Medications and Allergies Metoprolol [Lopressor] 12.5 mg PO BID 08/14/15 [History] Sertraline [Zoloft] 150 mg PO DAILY 08/14/15 [History] Sucralfate [Carafate] 2 gm PO BID 08/14/15 [History] glipiZIDE [Glucotrol] 10 mg PO BID 08/14/15 [History] Lactulose 10 gm PO QID 06/24/16 [History] Aspirin 81 mg PO DAILY 07/11/16 [History] Fluticasone/Vilanterol [Breo Ellipta 100-25 Mcg INH] 1 puff IH DAILY 07/11/16 [ History] Pantoprazole Sodium [Protonix] 40 mg PO DAILY 07/11/16 [History] Diltiazem [Cardizem] 30 mg PO TID 09/20/16 [History] Gabapentin [Neurontin] 100 mg PO BID 09/20/16 [History] Sennosides [Senna] 17.2 mg PO DAILY 09/20/16 [History] Simethicone [Gas-X] 80 mg PO BID PRN 09/20/16 [History] Insulin ASPART [Novolog Flexpen] 0 - 12 units SQ TID PRN 11/13/16 [History] Folic Acid 1 mg PO DAILY #30 tablet 12/03/16 [Rx] Ipratropium/Albuterol Neb [Duoneb] 3 ml IH [id number] PRN 30 Days 12/03/16 [Rx] Oxycodone HCl 10 mg PO Q6H PRN #20 tablet 12/03/16 [Rx] Ferrous Gluconate 324 mg PO TID 01/12/17 [History] Warfarin [Coumadin] 2 mg PO QPM 01/12/17 [History] Allergies ceftriaxone [From Rocephin] Allergy (Severe, Verified 08/14/16 17:10) Anaphylaxis Occured at [facility]. Required ICU transfer, intubation, and mechanical ventilation. ciprofloxacin [From Cipro] Allergy (Mild, Verified 08/14/16 17:10) Rash sulfamethoxazole [From Bactrim] Allergy (Verified 08/14/16 17:10) See Comments trimethoprim [From Bactrim] Allergy (Verified 08/14/16 17:10) See Comments rozeta Allergy (Uncoded 06/24/16 15:20) See Comments Review of Systems Constitutional: as per HPI Eyes: bilateral: blurred vision (patient denies), diplopia (patient denies) Nose, mouth and throat: no dizziness, no headache(s) Cardiovascular: dyspnea, dyspnea on exertion, irregular heart rhythm, no chest pain, no palpitations Respiratory: dyspnea, dyspnea on exertion Gastrointestinal: no abdominal pain, no change in bowel habits Musculoskeletal: as per HPI Musculoskeletal: right: hip pain Integumentary: as per HPI Neurological: as per HPI Psychiatric: no depression, no difficulty concentrating Endocrine: as per HPI Hematologic/Lymphatic: no easy bruising, no lymphadenopathy Exam - Vital Signs Vital signs: Initial Vital Signs Temp Pulse Resp BP Pulse Ox 98.1 F 74 20 131/77 97 01/12/17 11:47 01/12/17 11:47 01/12/17 11:47 01/12/17 11:47 01/12/17 11:47 Vital Signs - Last 8 Hours Temp Pulse Resp BP Pulse Ox 01/14/17 08:20 81 20 116/70 93 01/14/17 07:25 98.5 F 81 20 116/70 93 01/14/17 04:32 98.6 F 71 18 132/47 92 Intake and Output 01/13/17 01/14/17 01/14/17 23:59 07:59 15:59 Intake Total 200 / 200 Output Total 0 / 0 Balance 200 / 200 Intake: Oral 200 / 200 Output: Total Dialysis Output 0 / 0 Other: # Urine Diapers 1 Blood Glucose* 210 177 - General Appearance Exam: The patient is alert and oriented. She is in no acute distress. She has periorbital ecchymosis. Neck is supple. Lungs diminished breath sounds. Heart irregular rate and rhythm consistent with atrial fibrillation. Abdomen is obese. Bowel sounds are normal. No bruits masses organomegaly tenderness guarding nor rigidity. Lower extremity show no edema. There is a small AV fistula in the left upper extremity. There is a tunnel dialysis catheter in the left chest. Results - Lab Results 01/13/17 05:51 01/13/17 05:51 Most recent lab results Calcium 9.0 mg/dL (8.6-10.8) 01/13/17 05:51 Magnesium 2.2 mg/dL (1.6-2.6) 01/13/17 05:51 Consult Discharge Plan - Plan Referrals: Henrry Mccullough MD [Primary Care Provider] -
[2017-01-14] MEDS ORDERED: 0.9 % Sodium Chloride 250 ML IVC PRN (09:01)
[2017-01-14 11:36] LABS: Hepatitis B Surface Antibody 0.79 mIU/mL; Hepatitis B Surface Antigen Nonreactive (Nonreactive)
--- NOTE | 2017-01-14 14:54 | Internal Med Progress Note ---
Date of Encounter: 01/14/17 Time of Encounter: 14:52 - Assessment and plan (1) Hip fracture Current Visit: Yes Status: Acute Assessment and plan: undisplaced rt. femoral neck fracture. ortho consult recommended No further intervention required unless patient should have increasing pain. ensure DVT prophylaxis. bedside PT/OT Qualifiers: Encounter type: initial encounter Fracture type: closed Laterality: right Qualified Code(s): S72.001A - Fracture of unspecified part of neck of right femur, initial encounter for closed fracture (2) Chronic diastolic (congestive) heart failure Current Visit: No Status: Acute Assessment and plan: will restart home meds, started on IV lasix yesterday, appears better today has diastolic HF, last EF with preserved EF. (3) Obesity (BMI 30-39.9) Current Visit: No Status: Chronic (4) Pleural effusion Current Visit: No Status: Chronic Assessment and plan: has moderate pleural EF, will observe with lasix' most likely 2/2 CHF as its bilateral. if worsening, will consider tapping. less likely hemothorax as per CT chest. (5) End stage renal disease Current Visit: Yes Status: Acute Assessment and plan: ` Follows with Dr. Bowden, plan for regular dialysis today. - Subjective Interval history: seen at the bedside, still has some pain. has a black eye on the left, presented s/p fall. - Constitutional Vitals: Temp Pulse Resp BP Pulse Ox 98.3 F 68 22 115/66 98 01/14/17 11:17 01/14/17 11:17 01/14/17 11:17 01/14/17 11:17 01/14/17 11:17 General appearance: Present: A&O X 3, no acute distress, answers questions appropriately Exam: black eye on left side neck- supple chest- occ wheezing b/l, decreased breath sounds on right basal zone. CVS-s1 and s2, no mr/g abd-soft, non tender, bs are present ext- mild pedal edema neuro- no focal deficit, alert , awake and orientedx3. Internal Medicine: Result - Labs CBC & Chem 7: 01/13/17 05:51 01/13/17 05:51 - ABG Interpretation ABG results: PT/INR, D-dimer PT 14.4 Seconds (9.4-12.1) H 01/13/17 05:51 - Impressions Impressions Cervical Spine MRI 01/14/17 23:34 IMPRESSION: Markedly motion degraded study. No evidence of marrow edema to suggest acute fracture. D/ / 01/14/2017 10:37:17 Yessi Leyva MD / stefano Interpreting Provider: Yessi Leyva MD - VTE Documentation of Mechanical Device: Intermittent pneumatic compression device Consult Discharge Plan - Plan Referrals: Henrry Mccullough MD [Primary Care Provider] -
--- NOTE | 2017-01-14 16:47 | Electrocardiograph Report ---
[address] [place] [address] Test Date: 2017-01-12 Pat Name: Jaimee Rodriguez Department: 102 Room: [facility] Gender: F Policy Officer: Gurmeet : 1945 Requested By: Oswald Thompson Order Number: [id number] Reading MD: Gail Desir Measurements Intervals [place] Rate: 68 P: ND: 0 QRS: -5 QRSD: 102 T: 70 QT: 385 QTc: 402 Interpretive Statements ATRIAL FIBRILLATION LOW QRS VOLTAGE IN EXTREMITY LEADS LEFTWARD AXIS NONSPECIFIC ST ABNORMALITIES ABNORMAL RHYTHM ECG Electronically Signed On 01-14-2017 16:45:12 EDT by Gail Desir
[2017-01-14 20:18] LABS: Calcium 8.9 mg/dL (8.6-10.8)
[2017-01-14 20:20] LABS: Basophils % 0.1 %; Eosinophils % 0.1 %; Hematocrit 30.1 % (35.3-44.9); Hemoglobin 8.9 g/dL (11.5-15.4); Immature Granulocytes % 1.6 % (0-4); Lymphocytes # 0.6 K/mcL (0.6-4.6); Lymphocytes % 6.4 %; Mean Corpuscular HGB Conc 29.6 g/dL (31.6-35.5); Mean Corpuscular Hemoglobin 23.5 pg (28.0-33.3); Mean Corpuscular Volume 79.6 fL (83.0-100.0); Mean Platelet Volume 8.6 fL (9.4-12.4); Monocytes # 1.1 K/mcL (0.0-1.3); Monocytes % 12.1 %; Neutrophils # 7.1 K/mcL (1.6-8.9); Platelet Count 240 K/mcL (140-400); Red Blood Count 3.78 M/mcL (3.82-4.97); Segmented Neutrophils % 79.7 %
[2017-01-14 20:24] LABS: Potassium 3.7 mEq/L (3.5-4.5)
[2017-01-15 05:42] LABS: Basophils % 0.2 %; Eosinophils % 0.3 %; Hematocrit 30.6 % (35.3-44.9); Hemoglobin 8.9 g/dL (11.5-15.4); Immature Granulocytes % 1.5 % (0-4); Lymphocytes # 0.7 K/mcL (0.6-4.6); Lymphocytes % 6.3 %; Mean Corpuscular HGB Conc 29.1 g/dL (31.6-35.5); Mean Corpuscular Hemoglobin 23.4 pg (28.0-33.3); Mean Corpuscular Volume 80.5 fL (83.0-100.0); Mean Platelet Volume 8.6 fL (9.4-12.4); Monocytes # 1.1 K/mcL (0.0-1.3); Monocytes % 10.1 %; Neutrophils # 8.7 K/mcL (1.6-8.9); Platelet Count 262 K/mcL (140-400); Red Cell Distribution Width 19.2 % (11.5-14.5); Segmented Neutrophils % 81.6 %
[2017-01-15 05:57] LABS: Calcium 9.1 mg/dL (8.6-10.8); Potassium 4.3 mEq/L (3.5-4.5)
[2017-01-15] MEDS: *HR* OxyCODONE Immed Rel 5 MG TABLET PO PRN ×2 (06:27→12:20)
[2017-01-15] MEDS: Sucralfate 1 GM TABLET PO SCH (08:53)
[2017-01-15] MEDS: Gabapentin 100 MG CAPSULE PO SCH (08:53)
[2017-01-15] MEDS: Sennosides 8.6 MG TABLET PO SCH (08:53)
[2017-01-15] MEDS: Folic Acid 1 MG TABLET PO SCH (08:53)
[2017-01-15] MEDS: Lactulose Oral Soln 20 GM/30 ML UDC PO SCH ×2 (08:54→12:13)
[2017-01-15] MEDS: Furosemide 20 MG/2 ML VIAL IVP SCH (08:54)
[2017-01-15 11:58] VITALS: BP 155/65
--- NOTE | 2017-01-15 12:11 | Discharge Summary ---
Date of Encounter: 01/16/17 Time of Encounter: 12:09 - Discharge Diagnosis (1) Hip fracture Priority: Primary Status: Acute Qualifiers: Encounter type: initial encounter Fracture type: closed Laterality: right Qualified Code(s): S72.001A - Fracture of unspecified part of neck of right femur, initial encounter for closed fracture (2) Chronic diastolic (congestive) heart failure Priority: Secondary Status: Acute (3) Obesity (BMI 30-39.9) Priority: Secondary Status: Chronic (4) Pleural effusion Priority: Secondary Status: Chronic (5) End stage renal disease Priority: Secondary Status: Acute - Discharge Medications Prescriptions: Oxycodone HCl 10 mg PO Q6H PRN #60 tablet PRN Reason: Pain Home Medications: Metoprolol [Lopressor] 12.5 mg PO BID 08/14/15 [History] Sertraline [Zoloft] 150 mg PO DAILY 08/14/15 [History] Sucralfate [Carafate] 2 gm PO BID 08/14/15 [History] glipiZIDE [Glucotrol] 10 mg PO BID 08/14/15 [History] Lactulose 10 gm PO QID 06/24/16 [History] Aspirin 81 mg PO DAILY 07/11/16 [History] Fluticasone/Vilanterol [Breo Ellipta 100-25 Mcg INH] 1 puff IH DAILY 07/11/16 [ History] Pantoprazole Sodium [Protonix] 40 mg PO DAILY 07/11/16 [History] Diltiazem [Cardizem] 30 mg PO TID 09/20/16 [History] Gabapentin [Neurontin] 100 mg PO BID 09/20/16 [History] Sennosides [Senna] 17.2 mg PO DAILY 09/20/16 [History] Simethicone [Gas-X] 80 mg PO BID PRN 09/20/16 [History] Insulin ASPART [Novolog Flexpen] 0 - 12 units SQ TID PRN 11/13/16 [History] Folic Acid 1 mg PO DAILY #30 tablet 12/03/16 [Rx] Ipratropium/Albuterol Neb [Duoneb] 3 ml IH [id number] PRN 30 Days 12/03/16 [Rx] Ferrous Gluconate 324 mg PO TID 01/12/17 [History] Warfarin [Coumadin] 2 mg PO QPM 01/12/17 [History] Oxycodone HCl 10 mg PO Q6H PRN #60 tablet 01/15/17 [Rx] Allergies/Adverse Reactions: Allergies ceftriaxone [From Rocephin] Allergy (Severe, Verified 08/14/16 17:10) Anaphylaxis Occured at [facility]. Required ICU transfer, intubation, and mechanical ventilation. ciprofloxacin [From Cipro] Allergy (Mild, Verified 08/14/16 17:10) Rash sulfamethoxazole [From Bactrim] Allergy (Verified 08/14/16 17:10) See Comments trimethoprim [From Bactrim] Allergy (Verified 08/14/16 17:10) See Comments rozeta Allergy (Uncoded 06/24/16 15:20) See Comments Procedures/tests Complete & Pending: Procedures Performed prior 72 hours Category Date Time Status CT chest wo con [CT] Routine Cat Scan 01/13/17 12:21 Completed MR cervical spine wo con [MR] Routine MRI 01/14/17 23:34 Draft ECG 12 lead ECG [ECG] Routine Y 01/12/17 11:55 Completed Date of admission: 01/12/17 19:01 Primary care physician: Henrry Mccullough MD Consults: 01/12/17 21:59 Consult to Occupational Therapy [CONS] Routine Comment: Evaluate, develop and implement POC Reason for Consult: fall Consult to Physical Therapy [CONS] Routine Comment: Evaluate, develop and implement POC Reason for Consult: Fall 01/14/17 09:15 Consult to Dialysis [CONS] ONCE 01/14/17 10:25 Consult to Outdoor Studies Director [CONS] Routine Reason for SW Consult: Possible return to [facility] Discharging clinician: Elizabeth Royal Anticipated date of discharge: 01/15/17 - Patient Status Disposition: Transfer Inpatient Rehab Fac Condition: Fair Functional capacity at discharge: uses cane/walker Overall status at discharge: patient is progressing back to baseline - Discharge Instructions Follow Up With: Law Rushing MD [Partnered Physician] - 01/28/17 1:50 pm Additional Instructions: WBAT to right leg. Take medications as prescribed. Go to scheduled follow-up appointment. - Diet and Activity Activity: as per physical therapy Diet: diabetic diet Interval History: Ms. Rodriguez is a 71 year old female present to ER for mechanical fall. Patient said she seated and sleep in recliners and fell forward, with hit on head. Patient denies loss of consciousness. In Emergency room, patient was found to hypoglycemia with glucose level 37. Her glucose level increased to over 100 after eating some snacks. Pelvis CAT scan shows right femoral great trochanter non-displaced fracture, ER doctor called orthopedic doctor Kristan, and was instructed no surgery, weight bearing as tolerated. Patient was admitted for hypoglycemia and fall. ortho was consulted , patient has Right hip greater trochanteric fracture. This is a stable fracture present. as per ortho, The patient may be weightbearing as tolerated, bedside PT/OT was consulted. No further intervention required unless patient should have increasing pain. follow-up at that the [facility] in 2 weeks. she was noted to have moderate pleural EF, she did better after HD. most likely 2/2 CHF as its bilateral. there is no urgent need for tapping at this time less likely hemothorax as per CT chest. yoan is being dc in stable condition Hospital course: Ms. Rodriguez is a 71 year old female - Time Spent with Patient Total time spent providing and/or coordinating discharge services: - Constitutional Vitals: Temp Pulse Resp BP Pulse Ox 98.2 F 76 16 155/65 94 01/15/17 11:57 01/15/17 11:57 01/15/17 11:57 01/15/17 11:57 01/15/17 11:57 General appearance: Present: A&O X 3, no acute distress, answers questions appropriately Exam: black eye on left side neck- supple chest- no additional breath sounds, decreased breath sounds on right basal zone. CVS-s1 and s2, no mr/g abd-soft, non tender, bs are present ext- mild pedal edema neuro- no focal deficit, alert , awake and orientedx3. - VTE Documentation of Mechanical Device: Intermittent pneumatic compression device
--- NOTE | 2017-01-15 12:13 | Physician Discharge Referral ---
ExtendedCare Referral Info Transfer To: F Provider in Charge: alanna powell Institutional Level of Care: Intermediate - MR - Diagnosis (1) Hip fracture Status: Acute (2) Chronic diastolic (congestive) heart failure Status: Acute (3) Obesity (BMI 30-39.9) Status: Chronic (4) Pleural effusion Status: Chronic (5) End stage renal disease Status: Acute - Transfer Medications Prescriptions: Oxycodone HCl 10 mg PO Q6H PRN #60 tablet PRN Reason: Pain Home Medications: Metoprolol [Lopressor] 12.5 mg PO BID 08/14/15 [History] Sertraline [Zoloft] 150 mg PO DAILY 08/14/15 [History] Sucralfate [Carafate] 2 gm PO BID 08/14/15 [History] glipiZIDE [Glucotrol] 10 mg PO BID 08/14/15 [History] Lactulose 10 gm PO QID 06/24/16 [History] Aspirin 81 mg PO DAILY 07/11/16 [History] Fluticasone/Vilanterol [Breo Ellipta 100-25 Mcg INH] 1 puff IH DAILY 07/11/16 [ History] Pantoprazole Sodium [Protonix] 40 mg PO DAILY 07/11/16 [History] Diltiazem [Cardizem] 30 mg PO TID 09/20/16 [History] Gabapentin [Neurontin] 100 mg PO BID 09/20/16 [History] Sennosides [Senna] 17.2 mg PO DAILY 09/20/16 [History] Simethicone [Gas-X] 80 mg PO BID PRN 09/20/16 [History] Insulin ASPART [Novolog Flexpen] 0 - 12 units SQ TID PRN 11/13/16 [History] Folic Acid 1 mg PO DAILY #30 tablet 12/03/16 [Rx] Ipratropium/Albuterol Neb [Duoneb] 3 ml IH [id number] PRN 30 Days 12/03/16 [Rx] Ferrous Gluconate 324 mg PO TID 01/12/17 [History] Warfarin [Coumadin] 2 mg PO QPM 01/12/17 [History] Oxycodone HCl 10 mg PO Q6H PRN #60 tablet 01/15/17 [Rx] Allergies/Adverse Reactions: Allergies ceftriaxone [From Rocephin] Allergy (Severe, Verified 08/14/16 17:10) Anaphylaxis Occured at [facility]. Required ICU transfer, intubation, and mechanical ventilation. ciprofloxacin [From Cipro] Allergy (Mild, Verified 08/14/16 17:10) Rash sulfamethoxazole [From Bactrim] Allergy (Verified 08/14/16 17:10) See Comments trimethoprim [From Bactrim] Allergy (Verified 08/14/16 17:10) See Comments rozeta Allergy (Uncoded 06/24/16 15:20) See Comments - Respiratory Orders Oxygen / L per min (4l) Smoking Cessation: Smoking cessation has been advised. For more information, call the [place] [employer] Quit Line at 8-281-OSJY-NOW. - Advance Directives Code Status: Full Code - Mobility Orders Chair, Ambulate - Rehabiliation Orders Rehab Potential: Fair Rehab Orders: Evaluation for Physical Therapy, Evaluation for Occupational Therapy - Diet Orders Regular, No Concentrated Sweets CERTIFICATION: I certify that the transfer of the above named patient to an Extended Care Facility is necessary for the continuing treatment of the diagnosis listed. The above information is true and accurate reflection of patient's current condition. Confidential - Redisclosure prohibited without a patient's written consent.
== END 2017-01-15 14:06 ==
LOC: EMEROO 11:45 → INTOOBSV 19:01 → 3NENU 19:01
PROVIDERS: ADMIT Internal Medicine; ATTEND Internal Medicine Endocrinology, Diabetes & Metabolism

== ENCOUNTER 2017-01-18 03:16 | Inpatient (IN) ==
[2017-01-18 03:36] LABS: Hemoglobin 10.2 g/dL (11.5-15.4); Lymphocytes # 0.6 K/mcL (0.6-4.6); Mean Corpuscular HGB Conc 28.3 g/dL (31.6-35.5); Mean Corpuscular Hemoglobin 23.2 pg (28.0-33.3); Mean Corpuscular Volume 81.8 fL (83.0-100.0); Mean Platelet Volume 8.4 fL (9.4-12.4); Nucleated Red Blood Cells 0.9 /100 WBC (0); Platelet Count 383 K/mcL (140-400); Red Cell Distribution Width 19.8 % (11.5-14.5)
--- NOTE | 2017-01-18 03:38 | Emergency Department Note ---
Disposition Clinical Impression: CHF exacerbation Qualifiers: Congestive heart failure type: unspecified congestive heart failure type Qualified Code(s): I50.9 - Heart failure, unspecified Disposition: Admitted As Inpatient Condition: Fair SOB HPI - General Chief Complaint: ED Shortness of Breath/Dyspnea Stated Complaint: difficulty in breathing Time Seen by Provider: 01/18/17 03:28 Source: patient, EMS Mode of arrival: EMS Limitations: altered mental status Nursing Notes Reviewed: Yes Vital Signs Reviewed: Yes - History of Present Illness 71-year-old female history of atrial fibrillation on Coumadin CHF, COPD, diabetes, recent trochanteric fracture on 01/12/17 who presents to the ER via EMS due to concern for shortness of breath and hypotension. Reports they were unable to get her blood pressure while at the facility. In route the patient was found to be 92% on a nonrebreather. She does report that she wears oxygen continuously at the facility. Patient was recently discharged from the hospital after a three-day admission for the trochanteric fracture. Nonoperative management was elected at that time. Patient denies any chest pain currently. She does report feeling short of breath. No other complaints. Pt Subjective Complaint: shortness of breath Onset (ago): hour(s) Context: trauma/injury Severity: moderate Consistency/Duration: intermittent Improves with: nothing Worsens with: nothing Known history of: COPD, congestive heart failure, diabetes Associated symptoms: Reports: other (Shortness of breath). Denies: chest pain, fever, cough Treatment prior to arrival: oxygen Cough Frequency: Intermittent Sputum production: No Sputum Amount: None - Related Data Home oxygen amount: 2 liters Home Medications Medication Instructions Recorded Confirmed Metoprolol [Lopressor] 12.5 mg PO BID 08/14/15 01/13/17 Sertraline [Zoloft] 150 mg PO DAILY 08/14/15 01/13/17 Sucralfate [Carafate] 2 gm PO BID 08/14/15 01/13/17 glipiZIDE [Glucotrol] 10 mg PO BID 08/14/15 01/13/17 Lactulose 10 gm PO QID 06/24/16 01/13/17 Aspirin 81 mg PO DAILY 07/11/16 01/13/17 Fluticasone/Vilanterol [Breo 1 puff IH DAILY 07/11/16 01/13/17 Ellipta 100-25 Mcg INH] Pantoprazole Sodium [Protonix] 40 mg PO DAILY 07/11/16 01/13/17 Diltiazem [Cardizem] 30 mg PO TID 09/20/16 01/13/17 Gabapentin [Neurontin] 100 mg PO BID 09/20/16 01/13/17 Sennosides [Senna] 17.2 mg PO DAILY 09/20/16 01/13/17 Simethicone [Gas-X] 80 mg PO BID PRN 09/20/16 01/13/17 Insulin ASPART [Novolog Flexpen] 0 - 12 units SQ TID PRN 11/13/16 01/13/17 Ferrous Gluconate 324 mg PO TID 01/12/17 01/13/17 Warfarin [Coumadin] 2 mg PO QPM 01/12/17 01/13/17 Previous Rx's Medication Instructions Recorded Folic Acid 1 mg PO DAILY #30 tablet 12/03/16 Ipratropium/Albuterol Neb [Duoneb] 3 ml IH [id number] PRN 30 Days 12/03/16 Oxycodone HCl 10 mg PO Q6H PRN #60 tablet 01/15/17 Allergies Allergy/AdvReac Type Severity Reaction Status Date / Time ceftriaxone [From Rocephin] Allergy Severe Anaphylaxis Verified 08/14/16 17:10 ciprofloxacin [From Cipro] Allergy Mild Rash Verified 08/14/16 17:10 sulfamethoxazole Allergy See Verified 08/14/16 17:10 [From Bactrim] Comments trimethoprim [From Bactrim] Allergy See Verified 08/14/16 17:10 Comments rozeta Allergy See Uncoded 06/24/16 15:20 Comments All systems ED: reviewed and negative except as stated. Constitutional: Denies: fever Cardiovascular: Denies: chest pain Respiratory: Reports: cough, dyspnea. Denies: wheezes Gastrointestinal: Denies: abdominal pain, nausea, vomiting Musculoskeletal: Denies: back pain Neurological: Denies: headache Past Medical History - Past Medical History Attestation: Yes The following information was validated with the patient. Source: patient Medical history: Reports: arthritis, atrial fibrillation, cirrhosis, CHF, COPD, diabetes, GERD, hyperlipidemia, hypertension, renal disease, other Surgical history: Reports: cholecystectomy, hysterectomy Psychiatric history: Reports: anxiety, panic disorder [employer] history: Reports: bilateral tubal ligation - Social History Smoking Status: Never smoker Smokeless Tobacco Status: No Alcohol use: Reports: none Drug use: Reports: none Physical Exam - General Limitations: altered mental status General appearance: alert, in no apparent distress - Head Head exam: other (Patient has left periorbital edema and ecchymosis) - Eye Eye exam: Present: normal appearance, EOMI - ENT ENT exam: normal exam - Neck Neck exam: Present: normal inspection - Chest Chest inspection: Present: normal inspection, symmetric chest wall rise - Respiratory Respiratory exam: Present: other (Diminished breath sounds on the left.) - Cardiovascular Cardiovascular exam: Present: regular rate, irregular rhythm, normal heart sounds - Abdominal Exam Abdominal exam: Present: soft, Non-Tender. Absent: tenderness - Extremities Exam Extremities exam: Present: normal inspection, full ROM - Expanded Upper Extremity Exam Shoulder exam: Present: normal inspection, full ROM Arm exam: Present: normal inspection, full ROM Elbow exam: Present: normal inspection, full ROM Forearm/Wrist exam: Present: normal inspection, full ROM Hand exam: Present: normal inspection, full ROM Vascular exam: Normal: radial pulse - Expanded Lower Extremity Exam Hip/Pelvis exam: Present: normal inspection. Absent: full ROM Upper leg exam: Present: normal inspection. Absent: full ROM Knee exam: Present: normal inspection, full ROM Lower leg exam: Present: normal inspection, full ROM Ankle exam: Present: normal inspection, full ROM Foot/toe exam: Present: normal inspection, full ROM - Neurological Exam Neurological exam: Present: alert. Absent: oriented X3 (Oriented 2) - Expanded Neurological Exam Patient oriented to: Present: person, place. Absent: time Speech: Present: fluid speech Cranial nerves: EOM function (II, III, IV, ): Normal, facial sensation (V): Normal, spinal accessory function (XI): Normal Coma Scale Eye Opening: Spontaneous Coma Scale Motor Response: Obeys Commands Coma Scale Verbal Response: Confused Coma Scale Total: 14 - Psychiatric Psychiatric exam: Present: normal affect, normal mood - Skin Skin exam: Present: warm, dry, intact, normal color Course Course Narrative: Patient seen and examined. Vital signs reviewed. We took her off the nonrebreather and she went to 78% on room air. Patient was placed on BiPAP. We will get an EKG, labs and CTA of the chest for evaluation given her hypoxia for pulmonary contusion versus hemopneumothorax versus PE from her recent injury and immobilization. - Reevaluation(s) Reevaluation #1: Patient tolerating BiPAP well. Reevaluation #2: Discussed results of imaging and lab work with the patient. Vital Signs Temperature 97.1 F L 01/18/17 03:18 Pulse Rate 84 01/18/17 03:18 Respiratory Rate 16 01/18/17 03:18 Blood Pressure 116/66 01/18/17 03:18 O2 Sat by Pulse Oximetry 96 01/18/17 03:18 Temperature 97.1 F L 01/18/17 03:18 Pulse Rate 64 01/18/17 05:32 Respiratory Rate 14 01/18/17 05:32 Blood Pressure 111/69 01/18/17 05:32 O2 Sat by Pulse Oximetry 94 01/18/17 05:32 Oxygen Delivery Oxygen Delivery Bipap Shortness of Breath/Dyspnea - MDM Narrative Medical decision making narrative: 71-year-old female presents to the ER from nursing facility due to shortness of breath and hypotension. Patient was low 90s on a nonrebreather. She is currently tolerating BiPAP very well. Her CTA of her chest shows concern for bilateral pleural effusions which she had on her prior CT several days ago but appear to be worse. Her BNP is elevated at 1700. Her EKG shows atrial fibrillation which is chronic. Patient will be admitted to the hospitalist service for further management. Received 40 mg IV Lasix in the emergency department. - Lab Data Lab results reviewed: Yes I reviewed the patient's lab results. Result diagrams: 01/18/17 03:15 01/18/17 04:35 Lab Results 01/18/17 01/18/17 01/18/17 Range/Units 03:15 03:15 03:15 WBC 15.9 H (4.3-11.1) K/mcL RBC 4.40 (3.82-4.97) M/mcL Hgb 10.2 L (11.5-15.4) g/dL Hct 36.0 (35.3-44.9) % MCV 81.8 L (83.0-100.0) fL MCH 23.2 L (28.0-33.3) pg MCHC 28.3 L (31.6-35.5) g/dL RDW 19.8 H (11.5-14.5) % Plt Count 383 (140-400) K/mcL MPV 8.4 L (9.4-12.4) fL Seg Neutrophils % 86.0 % Lymphocytes % 4.0 % Monocytes % 8.0 % Myelocytes % 2.0 H (0) % Neutrophils # 13.7 H (1.6-8.9) K/mcL Lymphocytes # 0.6 (0.6-4.6) K/mcL Monocytes # 1.3 (0.0-1.3) K/mcL Nucleated RBCs/100 WBC 0.9 H (0) /100 WBC Platelet Estimate Normal (Normal) Polychromasia 1+ A (Not Present) Hypochromasia Present A (Not Present) Anisocytosis 2+ A (Not Present) Macrocytosis Present A (Not Present) PT (9.4-12.1) Seconds INR Sodium (136-145) mEq/L Potassium (3.5-4.5) mEq/L Chloride (98-109) mEq/L Carbon Dioxide (19-29) mEq/L BUN (7-20) mg/dL Creatinine (0.57-1.11) mg/dL Est GFR ( Amer) (> 60) Est GFR (Non-Af Amer) (> 60) BUN/Creatinine Ratio (6-26) Glucose (70-99) mg/dL POC Glucose (58-89) Calculated Osmolality (280-300) Calcium (8.6-10.8) mg/dL Troponin I 0.02 (0-0.03) ng/mL B-Natriuretic Peptide 1722 H (0-100) pg/mL Specimen Rejected 01/18/17 01/18/17 01/18/17 Range/Units 03:15 03:15 03:20 WBC (4.3-11.1) K/mcL RBC (3.82-4.97) M/mcL Hgb (11.5-15.4) g/dL Hct (35.3-44.9) % MCV (83.0-100.0) fL MCH (28.0-33.3) pg MCHC (31.6-35.5) g/dL RDW (11.5-14.5) % Plt Count (140-400) K/mcL MPV (9.4-12.4) fL Seg Neutrophils % % Lymphocytes % % Monocytes % % Myelocytes % (0) % Neutrophils # (1.6-8.9) K/mcL Lymphocytes # (0.6-4.6) K/mcL Monocytes # (0.0-1.3) K/mcL Nucleated RBCs/100 WBC (0) /100 WBC Platelet Estimate (Normal) Polychromasia (Not Present) Hypochromasia (Not Present) Anisocytosis (Not Present) Macrocytosis (Not Present) PT 21.7 H D (9.4-12.1) Seconds INR 2.0 D Sodium (136-145) mEq/L Potassium (3.5-4.5) mEq/L Chloride (98-109) mEq/L Carbon Dioxide (19-29) mEq/L BUN (7-20) mg/dL Creatinine (0.57-1.11) mg/dL Est GFR ( Amer) (> 60) Est GFR (Non-Af Amer) (> 60) BUN/Creatinine Ratio (6-26) Glucose (70-99) mg/dL POC Glucose 298 H (58-89) Calculated Osmolality (280-300) Calcium (8.6-10.8) mg/dL Troponin I (0-0.03) ng/mL B-Natriuretic Peptide (0-100) pg/mL Specimen Rejected Hemolyzed 01/18/17 Range/Units 04:35 WBC (4.3-11.1) K/mcL RBC (3.82-4.97) M/mcL Hgb (11.5-15.4) g/dL Hct (35.3-44.9) % MCV (83.0-100.0) fL MCH (28.0-33.3) pg MCHC (31.6-35.5) g/dL RDW (11.5-14.5) % Plt Count (140-400) K/mcL MPV (9.4-12.4) fL Seg Neutrophils % % Lymphocytes % % Monocytes % % Myelocytes % (0) % Neutrophils # (1.6-8.9) K/mcL Lymphocytes # (0.6-4.6) K/mcL Monocytes # (0.0-1.3) K/mcL Nucleated RBCs/100 WBC (0) /100 WBC Platelet Estimate (Normal) Polychromasia (Not Present) Hypochromasia (Not Present) Anisocytosis (Not Present) Macrocytosis (Not Present) PT (9.4-12.1) Seconds INR Sodium 128 L (136-145) mEq/L Potassium 5.1 H (3.5-4.5) mEq/L Chloride 93 L (98-109) mEq/L Carbon Dioxide 22 (19-29) mEq/L BUN 51 H D (7-20) mg/dL Creatinine 4.94 H D (0.57-1.11) mg/dL Est GFR ( Amer) 10 L (> 60) Est GFR (Non-Af Amer) 9 L (> 60) BUN/Creatinine Ratio 10 (6-26) Glucose 263 H (70-99) mg/dL POC Glucose (58-89) Calculated Osmolality 289 (280-300) Calcium 9.4 (8.6-10.8) mg/dL Troponin I (0-0.03) ng/mL B-Natriuretic Peptide (0-100) pg/mL Specimen Rejected - Radiology Data Radiology results reviewed: Yes I reviewed the patient's radiology results. Chest CTA 01/18/17 03:31 IMPRESSION: 1. No CT evidence of a pulmonary embolism. 2. Atherosclerotic disease of the thoracic aorta, without evidence of aneurysm or dissection. 3. Findings remain consistent with mild to moderate CHF, including cardiomegaly, bilateral pleural effusions, and interstitial pulmonary edema. There is multifocal airspace consolidation throughout both lungs, most likely atelectasis, though underlying pneumonia cannot be excluded. 4. Stable small pericardial effusion. 5. Stable right hilar and subcarinal lymphadenopathy, most likely benign and reactive in etiology. However, malignant lymphadenopathy is not excluded. D/ / Asaf Garrido MD / Asaf Garrido MD Interpreting Provider: Asaf Garrido MD - EKG Data EKG attestation: Yes I reviewed and interpreted this EKG. EKG results narrative: EKG demonstrates atrial fibrillation with a rate of 71 bpm. Normal axis. QRS duration [address] elevations or depressions. No acute ischemic findings. No significant changes from previous EKG dated 01/12/17. Critical Care Time Critical Care Time: Yes Total Critical Care Time: 50 Attestation: Critical care performed: Time is exclusive of separately billable procedures. Time includes: direct patient care, patient reassessment, coordination of patient care, interpretation of data (laboratory data, radiology data, and respiratory data), review of patient's medical records, medical consultation and documentation of patient care. Procedures included in critical care time: Procedures excluded from critical care time: Maxwell - Maxwell Situation: Demographics, MOA Background: Presenting Complaint, Relevant PMH, Meds, & Allergies Assessment: Vital Signs, Course and respsone to treatment, Exam Concerns, Patient/Family Expectation, Pertinant Lab Results, Outstanding Labs Recommendation: Barrier(s) to disposition, Recommendation based on pending studies, treatments, or consults Maxwell Report Given to: Dr. Jannie Arreola Repor Time: 05:30 Attestation Statement - Attestation Attestation: I, Dominguez Mendoza MD, personally evaluated this patient and discussed their management with the resident physician. I reviewed the resident's note and agree with the documented findings, medical decision making, and plan of care. 71-year-old female presents to the emergency department by EMS from a local retirement for hypotension and low oxygen saturations. Patient recently had a fall about 5 days ago and was admitted here for 3 days. She went back to the retirement 2 days ago. On arrival here the patient is alert and answers questions appropriately. She denies any pain and states that she feels fine. She arrived on a nonrebreather mask with oxygen saturation in the upper 90s. We tried removing the mask and placing her on nasal cannula and she dropped her oxygen saturation to 78%. She was placed back on the nonrebreather mask and then placed on BiPAP with significant improvement. On examination the patient is a well-developed obese elderly female in mild distress. She is alert. There is no cyanosis or diaphoresis. Breath sounds are decreased bilaterally but especially in the left base with some coarse rales in the left base. No wheezes noted. Heart is irregularly irregular with a normal rate. Abdomen is soft with present bowel sounds and no apparent tenderness. 1+ pedal edema. EKG shows atrial fibrillation. Labs reviewed. BNP 1722. Creatinine elevated above baseline however patient is apparently on hemodialysis. CTA of the chest showed no pulmonary embolism but did show bilateral pleural effusions, worse on the left, pulmonary edema, cannot exclude underlying infiltrate. The hospitalist, Dr. Valderrama, was consulted and accepted admission of the patient.
[2017-01-18 04:03] LABS: Monocytes # 1.3 K/mcL (0.0-1.3); Neutrophils # 13.7 K/mcL (1.6-8.9)
[2017-01-18 04:04] LABS: Anisocytosis 2+ (Not Present); Hypochromasia Present (Not Present); Macrocytosis Present (Not Present); Polychromasia 1+ (Not Present)
[2017-01-18 04:05] LABS: Platelet Estimate Normal (Normal)
[2017-01-18 04:13] LABS: Prothrombin Time 21.7 Seconds (9.4-12.1)
[2017-01-18 04:56] LABS: Calcium 9.4 mg/dL (8.6-10.8); Potassium 5.1 mEq/L (3.5-4.5)
[2017-01-18] MEDS ORDERED: Furosemide 40 MG/4 ML VIAL IVP ONE (05:07)
[2017-01-18 06:04] LABS: Bilirubin,Urine Negative (Negative); Blood,Urine Moderate (Negative); Clarity,Urine Turbid (Clear); Color,Urine Yellow (Yellow); Glucose,Urine (UA) Normal (Normal); Ketones,Urine Negative (Negative); Leukocyte Esterase,Urine Large (Negative); Nitrite,Urine Negative (Negative); Protein,Urine >=300 mg/dL (Neg-Trace); Specific Gravity,Urine 1.025 (1.010-1.025); Urobilinogen,Urine Normal (Normal)
--- NOTE | 2017-01-18 07:10 | Internal Med History&Physical ---
Date of Encounter: 01/18/17 Time of Encounter: 07:15 Assessment and Plan (1) Acute encephalopathy Current visit: Yes Status: Acute acute metabolic encephalopathy secondary to respiratory acidosis. treat underlying etiology. (2) Acute respiratory failure with hypoxia and hypercapnia Current visit: Yes Status: Acute Patient uses 2L NC at home for COPD but daughter noticed her oxygen was 3.5 L NC at the NH a few days ago. Acute event likely secondary to acute diastolic heart failure, respiratory acidosis, suspected PNA and medication overdose ( oxycodone) in the setting of ESRD. Given leukocytosis will r/o sepsis but lactic acid is negative and patient is afebrile. received narcan stat. continue BIPAP (setting changed to 14/8, RR 12, FiO2 35%). Duonebs q 6hr. Pulmicort nebs. narcan prn. empiric antibiotics with doxycycline and vancomycin until final results of blood cultures. repeat ABG in 1 hour. pulmonary toilet and mucinex. ABG reviewed by me, respiratory acidosis. CTA chest shows no PE, moderate sized left and small right pleural effusion, interstitial pulmonary edema, near complete consolidation of the bilateral lower lobes. EKG reviewed by me, afib hr 71. (3) End stage renal disease Current visit: Yes Status: Acute hisotry of ESRD on HD MWF. I discussed case with dr cain, plan for dialysis today and stat dose of narcan. (4) Acute diastolic heart failure Current visit: Yes Status: Acute plan as above. (5) Atrial fibrillation Current visit: No Status: Chronic hold home medications due to hypotension. Hr is controlled 68. hold on lopressor and diltiazem home dose given low normal BP. Qualifiers: Atrial fibrillation type: chronic Qualified Code(s): I48.2 - Chronic atrial fibrillation (6) Chronic anemia Current visit: No Status: Chronic anemia of chronic disease. aranesp. hgb 10. no bleeding. close monitor. Internal Medicine - H&P: HPI Chief complaint: shortness of breath Admitted From: Long-term Nursing Facility History of present illness: Ms. Rodriguez is a 71 year old female with past medical history of atrial fibrillation on Coumadin, CHF, COPD oxygen-dependent at 2L NC at home, diabetes , ESRD on HD and recent trochanteric fracture on 01/12/17 treated conservatively who was sent to the ER from rehab center via EMS because of shortness of breath , hypoxia and hypotension. Patient is somnolent and unable to provide a history of present illness. Her daughter is at bedside and reports that patient was doing well yesterday, and even stood up during therapy but she did have leg pain and received Oxycodone. She did notice that nursing staff bumped up his oxygen to 3.5 L NC a few days ago. This morning at 3am, nursing staff found patient confused, hypotensive and hypoxic. Per ED records, patient was AOx2. confused but following all commands. Per nursing records, patient was AOx3 and was answering yes/no questions at 6.55 am. Past Med Surg Social Fam HX - Past Medical History Medical history: arthritis, atrial fibrillation, cirrhosis, CHF, COPD, diabetes , GERD, hyperlipidemia, hypertension, renal disease, other Psychiatric history: anxiety, panic disorder - Past Surgical History Surgical History: cholecystectomy, hysterectomy - Social History Smoking Status: Never smoker Smokeless Tobacco Status: No Alcohol use: none Drug use: none - Family History Mother Living Status: Hx Family Cardiac Disorders: Yes Hx Family GI Disorders: Yes Hx Family Endocrine Disorder: Yes Father Living Status: Hx Family Cardiac Disorders: Yes Hx Family Cancer: Yes Sister Living Status: Still Living Hx Family Cancer: Yes (Breast Cancer, age 40's) Hx Family Endocrine Disorder: Yes (diabetes mellitus) Brother Living Status: Still Living Hx Family Cardiac Disorders: No Hx Family Respiratory Disorders: No Hx Family Cancer: No Hx Family GI Disorders: No Hx Family Endocrine Disorder: Yes Hx Family Neuromuscular Disorders: No Hx Family Neurologic Disorders: No Hx Family HEENT Disorders: No Hx Family Autoimmune Disorders: No Internal Medicine - H&P: Meds Metoprolol [Lopressor] 12.5 mg PO BID 08/14/15 [History] Sertraline [Zoloft] 150 mg PO DAILY 08/14/15 [History] Sucralfate [Carafate] 2 gm PO BID 08/14/15 [History] glipiZIDE [Glucotrol] 10 mg PO BID 08/14/15 [History] Lactulose 10 gm PO QID 06/24/16 [History] Aspirin 81 mg PO DAILY 07/11/16 [History] Fluticasone/Vilanterol [Breo Ellipta 100-25 Mcg INH] 1 puff IH DAILY 07/11/16 [ History] Pantoprazole Sodium [Protonix] 40 mg PO DAILY 07/11/16 [History] Diltiazem [Cardizem] 30 mg PO TID 09/20/16 [History] Gabapentin [Neurontin] 100 mg PO BID 09/20/16 [History] Sennosides [Senna] 17.2 mg PO DAILY 09/20/16 [History] Simethicone [Gas-X] 80 mg PO BID PRN 09/20/16 [History] Insulin ASPART [Novolog Flexpen] 0 - 12 units SQ TID PRN 11/13/16 [History] Folic Acid 1 mg PO DAILY #30 tablet 12/03/16 [Rx] Ipratropium/Albuterol Neb [Duoneb] 3 ml IH [id number] PRN 30 Days 12/03/16 [Rx] Ferrous Gluconate 324 mg PO TID 01/12/17 [History] Warfarin [Coumadin] 2 mg PO QPM 01/12/17 [History] Oxycodone HCl 10 mg PO Q6H PRN #60 tablet 01/15/17 [Rx] Allergies ceftriaxone [From Rocephin] Allergy (Severe, Verified 01/18/17 06:24) Anaphylaxis Occured at [facility]. Required ICU transfer, intubation, and mechanical ventilation. ciprofloxacin [From Cipro] Allergy (Mild, Verified 01/18/17 06:24) Rash sulfamethoxazole [From Bactrim] Allergy (Verified 01/18/17 06:24) See Comments trimethoprim [From Bactrim] Allergy (Verified 01/18/17 06:24) See Comments rozeta Allergy (Uncoded 01/18/17 06:24) See Comments ROS unobtainable: due to mental status, other (BIPAP) All Systems PM: A 10-system review of systems was performed and is negative for pertinent findings except as documented above in the HPI. - Constitutional Vitals: Temp Pulse Resp BP Pulse Ox 97.1 F L 68 14 137/79 94 01/18/17 03:18 01/18/17 06:00 01/18/17 06:44 01/18/17 06:44 01/18/17 06:00 Exam: Upon entering the room, patient was sleeping and did not wake up to verbal stimuli. She had myoclonic jerkins. she did open her eyes and answered simple questions after strong tactile stimuli. She moved her arms but fell back asleep very fast. pupils are normoreactive to light and non pin-point. After BIPAP settings changed and narcan given, patient was more alert and stated that the mask was bothering her. - Eye Eye exam: Present: sclera anicteric - Neck Neck exam general surgery: Present: supple, trachea midline. Absent: lymphadenopathy - Respiratory Respiratory exam: Present: decreased breath sounds, rhonchi - Cardiovascular Cardiovascular exam: Present: irregular rhythm - GI/Abdominal GI/Abdominal exam: Present: normal bowel sounds, soft. Absent: distended, tenderness - Extremities Exam Extremities exam: Absent: pedal edema - Back Exam Back exam: Absent: CVA tenderness (L), CVA tenderness (R) - Skin Skin exam: Absent: rash Internal Med - H&P Results - Labs CBC & Chem 7: 01/18/17 03:15 01/18/17 04:35
[2017-01-18] MEDS ORDERED: Acetaminophen 325 MG TABLET PO PRN (07:18)
[2017-01-18] MEDS ORDERED: Ondansetron 4 MG/2 ML VIAL IVP PRN (07:18)
[2017-01-18] MEDS ORDERED: Naloxone 0.4 MG/ML INJ IVP PRN (07:18)
[2017-01-18 08:23] LABS: ABG Base Excess 1.8 mEq/L (-2.0 to 3.0); ABG HCO3 30.3 mEQ/L (21-27); ABG Oxygen Saturation 100 % (95-98); ABG PCO2 69 mmHg (35-45); ABG PH 7.25 pH Units (7.32-7.45); ABG PO2 196 mmHg (85-104); ABG TCO2 32.4 mEq/L (20-26); Blood Gas FiO2 60 %
[2017-01-18] MEDS: Pantoprazole 40 MG VIAL IVP SCH (08:53)
[2017-01-18] MEDS: Doxycycline 100 MG in 0.9 % Sodium Chloride Mini Bag 100 ML IVPB SCH ×2 (08:53→18:03)
--- NOTE | 2017-01-18 09:24 | Nephrology Consult Note ---
Date of Encounter: 01/18/17 Time of Encounter: 09:22 Assessment and Plan (1) End-stage renal disease Current Visit: No Status: Acute Patient has end-stage renal disease requiring dialysis every Saturday. She presents this time with somnolence and hypercapnia. I suspect this may be medication related. Patient has been on pain medications because of her recent hip fracture. Patient will undergo dialysis today. Volume removal as tolerated based on her blood pressure. I did recommend to the hospitalist that she be given a trial of Narcan. She will be maintained on Aranesp for her anemia. (2) Somnolence Current Visit: Yes Status: Acute (3) Acute hypercapnic respiratory failure Current Visit: Yes Status: Acute History of Present Illness - History of Present Illness This is a 71-year-old female with end-stage renal disease who receives dialysis in [place] every Saturday. Patient was recently admitted with a hip fracture. She was deemed not to require surgery at that time. She subsequently returned to the [facility]. According to history from the patient's family the patient was noted to be hypoxemic and confused during the night. She subsequently was sent to the emergency room and admitted to the hospital. She has been found to be hypercapnic. Also somnolent. When the patient was hospitalized recently for the hip fracture she was alert and oriented. Chest x- ray shows evidence of some vascular congestion. Oxygen saturations being maintained. Currently she is on BiPAP. She is poorly responsive. She is exhibiting signs of mild clonus. Blood pressure is stable. She is afebrile. Hemoglobin is 10.2. Past Med Surg Social Fam HX - Past Medical History Medical history: arthritis, atrial fibrillation, cirrhosis, CHF, COPD, diabetes , GERD, hyperlipidemia, hypertension, renal disease, other Psychiatric history: anxiety, panic disorder - Past Surgical History Surgical History: cholecystectomy, hysterectomy - Social History Smoking Status: Never smoker Smokeless Tobacco Status: No Alcohol use: none Drug use: none - Family History Mother Living Status: Hx Family Cardiac Disorders: Yes Hx Family GI Disorders: Yes Hx Family Endocrine Disorder: Yes Father Living Status: Hx Family Cardiac Disorders: Yes Hx Family Cancer: Yes Sister Living Status: Still Living Hx Family Cancer: Yes (Breast Cancer, age 40's) Hx Family Endocrine Disorder: Yes (diabetes mellitus) Brother Living Status: Still Living Hx Family Cardiac Disorders: No Hx Family Respiratory Disorders: No Hx Family Cancer: No Hx Family GI Disorders: No Hx Family Endocrine Disorder: Yes Hx Family Neuromuscular Disorders: No Hx Family Neurologic Disorders: No Hx Family HEENT Disorders: No Hx Family Autoimmune Disorders: No Medications and Allergies Metoprolol [Lopressor] 12.5 mg PO BID 08/14/15 [History] Sertraline [Zoloft] 150 mg PO DAILY 08/14/15 [History] Sucralfate [Carafate] 2 gm PO BID 08/14/15 [History] glipiZIDE [Glucotrol] 10 mg PO BID 08/14/15 [History] Lactulose 10 gm PO QID 06/24/16 [History] Aspirin 81 mg PO DAILY 07/11/16 [History] Fluticasone/Vilanterol [Breo Ellipta 100-25 Mcg INH] 1 puff IH DAILY 07/11/16 [ History] Pantoprazole Sodium [Protonix] 40 mg PO DAILY 07/11/16 [History] Diltiazem [Cardizem] 30 mg PO TID 09/20/16 [History] Gabapentin [Neurontin] 100 mg PO BID 09/20/16 [History] Sennosides [Senna] 17.2 mg PO DAILY 09/20/16 [History] Simethicone [Gas-X] 80 mg PO BID PRN 09/20/16 [History] Insulin ASPART [Novolog Flexpen] 0 - 12 units SQ TID PRN 11/13/16 [History] Folic Acid 1 mg PO DAILY #30 tablet 12/03/16 [Rx] Ipratropium/Albuterol Neb [Duoneb] 3 ml IH [id number] PRN 30 Days 12/03/16 [Rx] Ferrous Gluconate 324 mg PO TID 01/12/17 [History] Warfarin [Coumadin] 2 mg PO QPM 01/12/17 [History] Oxycodone HCl 10 mg PO Q6H PRN #60 tablet 01/15/17 [Rx] Allergies ceftriaxone [From Rocephin] Allergy (Severe, Verified 01/18/17 06:24) Anaphylaxis Occured at [facility]. Required ICU transfer, intubation, and mechanical ventilation. ciprofloxacin [From Cipro] Allergy (Mild, Verified 01/18/17 06:24) Rash sulfamethoxazole [From Bactrim] Allergy (Verified 01/18/17 06:24) See Comments trimethoprim [From Bactrim] Allergy (Verified 01/18/17 06:24) See Comments rozeta Allergy (Uncoded 01/18/17 06:24) See Comments Review of Systems ROS unobtainable: due to mental status Exam - Vital Signs Vital signs: Initial Vital Signs Temp Pulse Resp BP Pulse Ox 97.1 F L 84 16 116/66 96 01/18/17 03:18 01/18/17 03:18 01/18/17 03:18 01/18/17 03:18 01/18/17 03:18 Vital Signs - Last 8 Hours Temp Pulse Resp BP Pulse Ox 01/18/17 07:51 98.2 F 74 19 103/60 92 01/18/17 06:44 14 137/79 01/18/17 06:00 68 14 112/68 94 01/18/17 05:57 12 99 01/18/17 05:51 12 96 Intake and Output 01/17/17 01/18/17 01/18/17 23:59 07:59 15:59 Other: Blood Glucose* 259 - General Appearance Exam: Patient is on BiPAP. She is unresponsive. She has evidence of myoclonus. Lungs diminished breath sounds. Heart irregular rate and rhythm consistent with atrial fibrillation. Abdomen is obese. Bowel sounds are present. No guarding or rigidity. There is minimal lower extremity swelling. There is a tunnel dialysis catheter in the left chest. Results - Lab Results 01/18/17 03:15 01/18/17 04:35 Most recent lab results ABG pH 7.25 pH Units (7.32-7.45) L 01/18/17 08:12 ABG pCO2 69 mmHg (35-45) H 01/18/17 08:12 ABG pO2 196 mmHg (85-104) H 01/18/17 08:12 ABG HCO3 30.3 mEQ/L (21-27) H 01/18/17 08:12 ABG O2 Saturation 100 % (95-98) H 01/18/17 08:12 Calcium 9.4 mg/dL (8.6-10.8) 01/18/17 04:35 Consult Discharge Plan - Plan Referrals: Henrry Mccullough MD [Primary Care Provider] -
[2017-01-18] MEDS ORDERED: 0.9 % Sodium Chloride 250 ML IVC PRN (09:26)
[2017-01-18] MEDS ORDERED: Dextrose Gel 15 GM PO PRN ×2 (09:42)
[2017-01-18] MEDS ORDERED: *HR* Dextrose 50 % in Water (Syg) 50 ML SYRINGE IVP PRN (09:42)
[2017-01-18] MEDS ORDERED: D5% in Water 1,000 ML IVC PRN (09:42)
[2017-01-18] MEDS ORDERED: Vancomycin 1 EACH in D5% in Water 250 ML IVPB SCH (10:00)
[2017-01-18] MEDS ORDERED: Vancomycin 1,500 MG in D5% in Water 250 ML IVPB ONE (10:38)
[2017-01-18] MEDS: Ipratropium/Albuterol Neb 3 ML IH SCH ×4 (10:42→22:58)
[2017-01-18] MEDS: Budesonide Neb 0.25 MG/2 ML IH SCH ×3 (10:42→22:58)
[2017-01-18 10:43] LABS: ABG Base Excess 1.6 mEq/L (-2.0 to 3.0); ABG HCO3 28.9 mEQ/L (21-27); ABG Oxygen Saturation 97 % (95-98); ABG PCO2 60 mmHg (35-45); ABG PH 7.29 pH Units (7.32-7.45); ABG PO2 99 mmHg (85-104); ABG TCO2 30.7 mEq/L (20-26)
[2017-01-18 10:44] LABS: Blood Gas FiO2 35 %
[2017-01-18] MEDS ORDERED: *HR* Heparin 10,000 UNIT/10 ML VIAL IV PRN (12:45)
[2017-01-18] MEDS ORDERED: 0.9 % Sodium Chloride 2,000 ML ONE (12:52)
[2017-01-18] MEDS: Insulin LISPRO 300 UNITS/3 ML VIAL SQ SCH ×3 (16:19→21:32)
[2017-01-18] MEDS: GuaiFENesin/Dextromethorphan TABLET PO SCH ×2 (16:19→20:16)
[2017-01-18 17:17] LABS: ABG Base Excess 5.9 mEq/L (-2.0 to 3.0); ABG HCO3 31.9 mEQ/L (21-27); ABG Oxygen Saturation 98 % (95-98); ABG PCO2 54 mmHg (35-45); ABG PH 7.38 pH Units (7.32-7.45); ABG PO2 99 mmHg (85-104); ABG TCO2 33.6 mEq/L (20-26)
[2017-01-18 17:18] LABS: Blood Gas FiO2 35 %
[2017-01-18] MEDS ORDERED: *HR* Warfarin 3 MG TABLET PO ONE (18:00)
[2017-01-18] MEDS ORDERED: Warfarin perPT PO PRN (18:00)
[2017-01-18] MEDS: *HR* HYDROcodone/Acet 5/325 mg TABLET PO PRN (20:16)
[2017-01-19] MEDS: Ipratropium/Albuterol Neb 3 ML IH SCH ×4 (04:08→21:47)
[2017-01-19 04:51] LABS: Basophils % 0.3 %; Eosinophils # 0.1 K/mcL (0.0-0.6); Eosinophils % 0.8 %; Hematocrit 33.1 % (35.3-44.9); Hemoglobin 9.6 g/dL (11.5-15.4); Lymphocytes % 9.2 %; Mean Corpuscular Hemoglobin 23.9 pg (28.0-33.3); Mean Corpuscular Volume 82.3 fL (83.0-100.0); Mean Platelet Volume 8.4 fL (9.4-12.4); Monocytes # 1.2 K/mcL (0.0-1.3); Monocytes % 11.3 %; Neutrophils # 7.9 K/mcL (1.6-8.9); Nucleated Red Blood Cells 0.5 /100 WBC (0); Platelet Count 254 K/mcL (140-400); Red Blood Count 4.02 M/mcL (3.82-4.97); Red Cell Distribution Width 20.1 % (11.5-14.5); Segmented Neutrophils % 74.4 %
[2017-01-19 05:00] LABS: INR 1.8; Prothrombin Time 19.7 Seconds (9.4-12.1)
[2017-01-19 05:13] LABS: Magnesium 2.1 mg/dL (1.6-2.6); Phosphorous 3.4 mg/dL (2.3-4.7)
[2017-01-19 05:18] LABS: Potassium 3.8 mEq/L (3.5-4.5)
[2017-01-19] MEDS: *HR* HYDROcodone/Acet 5/325 mg TABLET PO PRN ×3 (06:05→22:18)
[2017-01-19] MEDS: Doxycycline 100 MG in 0.9 % Sodium Chloride Mini Bag 100 ML IVPB SCH ×2 (06:05→17:29)
[2017-01-19] MEDS: Insulin LISPRO 300 UNITS/3 ML VIAL SQ SCH ×4 (08:06→21:46)
[2017-01-19] MEDS: Aspirin 81 MG TAB.CHEW PO SCH (08:10)
[2017-01-19] MEDS: Folic Acid 1 MG TABLET PO SCH (08:10)
[2017-01-19] MEDS: GuaiFENesin/Dextromethorphan TABLET PO SCH ×2 (08:10→21:45)
[2017-01-19] MEDS: Pantoprazole 40 MG VIAL IVP SCH (08:10)
--- NOTE | 2017-01-19 08:12 | Nephrology Progress Note ---
Date of Encounter: 01/19/17 Time of Encounter: 08:11 - Assessment and Plan (1) End-stage renal disease Current Visit: No Status: Acute Patient is stable from a renal perspective. She will continue to undergo dialysis every Saturday. Her last dialysis was yesterday. (2) Somnolence Current Visit: Yes Status: Acute (3) Acute hypercapnic respiratory failure Current Visit: Yes Status: Acute Subjective Interval history: Patient is alert and oriented. Her mental status appears back to usual baseline. She says she is feeling better. She says her shortness of breath is improved. She does continue to have some hip pain. Objective - Vital Signs Vital signs: Vital Signs Temp Pulse Resp BP Pulse Ox 01/19/17 07:28 98.4 F 61 17 100/61 93 01/19/17 04:17 98.8 F 59 13 123/79 100 01/19/17 04:08 56 15 100 01/19/17 00:08 98.3 F 63 16 117/67 99 01/18/17 22:58 12 100 01/18/17 20:56 98.1 F 66 18 96 01/18/17 20:15 74 Intake and Output 01/18/17 01/19/17 01/19/17 23:59 07:59 15:59 Intake Total 350 / 450 Balance 350 / 450 Intake: IV Fluids 350 / 450 Doxycycline 100 MG In 0.9 100 / 200 % Sodium Chloride (Mini- Bag +) 100 ML @ 100 mls/ hr IVPB Q12HR CANDE Rx#: [id number] Vancocin 1,500 MG In 250 / 250 Dextrose 5% 250 ML @ 166. 67 mls/hr IVPB ONCE ONE Rx#:[id number] Other: Meal Dinner Percent of Meal Consumed 100% Weight 92.2 kg Blood Glucose* 255 173 Patient Weight 01/19/17 23:59 Weight 92.2 kg - General Appearance Exam: Patient is alert and oriented. She is in no acute distress. She continues to have periorbital ecchymosis. Lungs diminished breath sounds. Heart irregular rate and rhythm. Abdomen is benign. There is minimal lower extremity swelling. There is a tunnel catheter in place as well as a left arm AV fistula. - Lab 01/19/17 04:37 01/19/17 04:37 Most recent lab results ABG pH 7.38 pH Units (7.32-7.45) 01/18/17 17:02 ABG pCO2 54 mmHg (35-45) H 01/18/17 17:02 ABG pO2 99 mmHg (85-104) 01/18/17 17:02 ABG HCO3 31.9 mEQ/L (21-27) H 01/18/17 17:02 ABG O2 Saturation 98 % (95-98) 01/18/17 17:02 Calcium 9.0 mg/dL (8.6-10.8) 01/19/17 04:37 Phosphorus 3.4 mg/dL (2.3-4.7) 01/19/17 04:37 Magnesium 2.1 mg/dL (1.6-2.6) 01/19/17 04:37 Consult Discharge Plan - Plan Referrals: Henrry Mccullough MD [Primary Care Provider] -
--- NOTE | 2017-01-19 09:08 | Electrocardiograph Report ---
[address] [place] [address] Test Date: 2017-01-18 Pat Name: Jaimee Rodriguez Department: 105 Room: 2N12 Gender: F Ambulance Officer: EKP : 1945 Requested By: Akhil Loo Order Number: [id number] Reading MD: Colten Issa DO Measurements Intervals [place] Rate: 71 P: ME: 0 QRS: -21 QRSD: 107 T: 85 QT: 383 QTc: 406 Interpretive Statements ATRIAL FIBRILLATION LOW QRS VOLTAGE IN EXTREMITY LEADS POSSIBLE ANTERIOR MYOCARDIAL INFARCTION, OF INDETERMINATE AGE Electronically Signed On 01-19-2017 9:06:31 EDT by Colten Issa DO
--- NOTE | 2017-01-19 11:53 | Internal Med Progress Note ---
Date of Encounter: 01/19/17 Time of Encounter: 09:25 - Assessment and plan (1) Acute respiratory failure with hypoxia and hypercapnia Current Visit: Yes Status: Acute Assessment and plan: Now Improved Patient uses 2L NC at home for COPD but daughter noticed her oxygen was 3.5 L NC at the NH a few days ago. Acute event likely secondary to acute diastolic heart failure, respiratory acidosis, suspected PNA and medication overdose ( oxycodone) in the setting of ESRD. continue BIPAP (setting changed to 14/8, RR 12, FiO2 35%)PRN. Duonebs q 6hr. Pulmicort nebs. narcan prn. empiric antibiotics with doxycycline and vancomycin until final results of blood cultures Incentive spirometry CTA chest shows no PE, moderate sized left and small right pleural effusion, interstitial pulmonary edema, near complete consolidation of the bilateral lower lobes. (2) End stage renal disease Current Visit: Yes Status: Acute Assessment and plan: HD on MWF, Nephrology following (3) COPD (chronic obstructive pulmonary disease) Current Visit: No Status: Chronic Assessment and plan: causing resp failure Continue Duonebs, Pulmicort, O2 Qualifiers: COPD type: unspecified COPD Qualified Code(s): J44.9 - Chronic obstructive pulmonary disease, unspecified (4) Chronic diastolic HF (heart failure) Current Visit: No Status: Chronic Assessment and plan: LVEF 60%, probable diastolic dysfunction with acute exacerbation - Improved continue home meds (5) Type 2 diabetes mellitus with diabetic chronic kidney disease Current Visit: No Status: Acute Assessment and plan: hyperglycemia, insulin-dependent sliding scale, glucose checks Qualifiers: Diabetes mellitus chcf insulin use: without chcf use Chronic kidney disease stage: stage 3 (moderate) Qualified Code(s): E11.22 - Type 2 diabetes mellitus with diabetic chronic kidney disease; N18.3 - Chronic kidney disease, stage 3 (moderate) (6) Atrial fibrillation, permanent Current Visit: No Status: Chronic Assessment and plan: rate controlled, continue Metoprolol continue Warfarin for anticoagulation - Time Spent With Patient 25 - 35 minutes - Subjective Interval history: Patient is awake and alert. Not in any distress. Denies chest pain or shortness of breath. Feels better. Tolerating oral diet. No fever. HD on MWF. She does have extensive bruising around both eyes, due to previous falls. No other acute events or complaints. - Constitutional Vitals: Temp Pulse Resp BP Pulse Ox 98.2 F 66 18 160/67 95 01/19/17 11:32 01/19/17 11:32 01/19/17 11:32 01/19/17 11:32 01/19/17 11:32 General appearance: Present: A&O X 3, pleasant, obese, answers questions appropriately - Head Additional comments: bruising around both eyes, mild tenderness -secondary to previous falls - Eye Eye exam: Present: EOMI, periorbital tenderness - ENT ENT exam: Present: mucous membranes moist - Neck Neck exam general surgery: Present: supple Additional comments: HD catheter on left side - Respiratory Respiratory exam: Present: decreased breath sounds (slightly decreased in bases) . Absent: rhonchi, wheezes - Cardiovascular Cardiovascular exam: Present: RRR, +S1, +S2 - GI/Abdominal GI/Abdominal exam: Present: distended (obese), soft. Absent: guarding, tenderness - Extremities Exam Extremities exam: Present: pedal edema, radial pulses palpable and symetrical. Absent: cyanotic - Neurological Exam Neurological exam: Present: alert, oriented X3, no focal deficits Internal Medicine: Result - Labs CBC & Chem 7: 01/19/17 04:37 01/19/17 04:37 Labs: Short CBC 01/19/17 Range/Units 04:37 WBC 10.7 (4.3-11.1) K/mcL Hgb 9.6 L (11.5-15.4) g/dL Hct 33.1 L (35.3-44.9) % Plt Count 254 (140-400) K/mcL Neutrophils # 7.9 (1.6-8.9) K/mcL BMP 01/19/17 04:37 Sodium 133 L Potassium 3.8 D Chloride 95 L Carbon Dioxide 28 BUN 29 H D Creatinine 3.46 H Glucose 149 H Calcium 9.0 - ABG Interpretation ABG results: ABG ABG pH 7.38 pH Units (7.32-7.45) 01/18/17 17:02 ABG pCO2 54 mmHg (35-45) H 01/18/17 17:02 ABG pO2 99 mmHg (85-104) 01/18/17 17:02 ABG O2 Saturation 98 % (95-98) 01/18/17 17:02 PT/INR, D-dimer PT 19.7 Seconds (9.4-12.1) H 01/19/17 04:37 Consult Discharge Plan - Plan Referrals: Henrry Mccullough MD [Primary Care Provider] -
[2017-01-19] MEDS: Budesonide Neb 0.25 MG/2 ML IH SCH ×2 (12:26→21:47)
[2017-01-19] MEDS ORDERED: *HR* Warfarin 3 MG TABLET PO ONE (18:00)
[2017-01-20 04:01] LABS: Basophils % 0.2 %; Lymphocytes % 12.8 %; Mean Corpuscular Volume 83.6 fL (83.0-100.0); Nucleated Red Blood Cells 0.3 /100 WBC (0)
[2017-01-20 04:02] LABS: Eosinophils # 0.2 K/mcL (0.0-0.6); Hematocrit 31.1 % (35.3-44.9); INR 2.3; Immature Granulocytes % 3.9 % (0-4); Lymphocytes # 1.1 K/mcL (0.6-4.6); Mean Corpuscular HGB Conc 28.9 g/dL (31.6-35.5); Mean Corpuscular Hemoglobin 24.2 pg (28.0-33.3); Mean Platelet Volume 8.5 fL (9.4-12.4); Monocytes % 11.2 %; Platelet Count 227 K/mcL (140-400); Prothrombin Time 25.1 Seconds (9.4-12.1); Red Blood Count 3.72 M/mcL (3.82-4.97); Red Cell Distribution Width 20.1 % (11.5-14.5); Segmented Neutrophils % 69.9 %
[2017-01-20 04:10] LABS: Calcium 9.1 mg/dL (8.6-10.8); Potassium 3.7 mEq/L (3.5-4.5)
[2017-01-20 04:44] LABS: Hypochromasia Present (Not Present); Platelet Estimate Normal (Normal)
[2017-01-20] MEDS: Ipratropium/Albuterol Neb 3 ML IH SCH ×4 (04:58→21:25)
[2017-01-20] MEDS: Doxycycline 100 MG in 0.9 % Sodium Chloride Mini Bag 100 ML IVPB SCH ×2 (05:19→17:59)
[2017-01-20] MEDS: *HR* HYDROcodone/Acet 5/325 mg TABLET PO PRN ×3 (08:21→21:50)
[2017-01-20] MEDS: Aspirin 81 MG TAB.CHEW PO SCH (08:21)
[2017-01-20] MEDS: Folic Acid 1 MG TABLET PO SCH (08:21)
[2017-01-20] MEDS: GuaiFENesin/Dextromethorphan TABLET PO SCH ×2 (08:22→21:50)
[2017-01-20] MEDS: Insulin LISPRO 300 UNITS/3 ML VIAL SQ SCH ×4 (08:22→21:49)
[2017-01-20] MEDS: Pantoprazole 40 MG VIAL IVP SCH (08:22)
[2017-01-20] MEDS: Budesonide Neb 0.25 MG/2 ML IH SCH ×2 (11:08→21:26)
--- NOTE | 2017-01-20 11:35 | Internal Med Progress Note ---
Date of Encounter: 01/20/17 Time of Encounter: 08:50 - Assessment and plan (1) Acute respiratory failure with hypoxia and hypercapnia Current Visit: Yes Status: Acute Assessment and plan: Improved Patient uses 2L NC at home for COPD but daughter noticed her oxygen was 3.5 L NC at the NH a few days ago. Acute event likely secondary to acute diastolic heart failure, respiratory acidosis and medication overdose (oxycodone) in the setting of ESRD. continue BIPAP (setting changed to 14/8, RR 12, FiO2 35%) PRN. Duonebs q 6hr. Pulmicort nebs. narcan prn. empiric antibiotics with doxycycline and vancomycin until final results of blood cultures Incentive spirometry CTA chest shows no PE, moderate sized left and small right pleural effusion, interstitial pulmonary edema, near complete consolidation of the bilateral lower lobes. (2) End stage renal disease Current Visit: Yes Status: Acute Assessment and plan: HD on MWF, Nephrology following (3) COPD (chronic obstructive pulmonary disease) Current Visit: No Status: Chronic Assessment and plan: causing resp failure - improved Continue Duonebs, Pulmicort, O2 Qualifiers: COPD type: unspecified COPD Qualified Code(s): J44.9 - Chronic obstructive pulmonary disease, unspecified (4) Chronic diastolic HF (heart failure) Current Visit: No Status: Chronic Assessment and plan: LVEF 60%, probable diastolic dysfunction with acute exacerbation - Improved continue current meds (5) Type 2 diabetes mellitus with diabetic chronic kidney disease Current Visit: No Status: Acute Assessment and plan: hyperglycemia, insulin-dependent sliding scale, glucose checks. Qualifiers: Diabetes mellitus fpc insulin use: without terminal computer operator use Chronic kidney disease stage: stage 3 (moderate) Qualified Code(s): E11.22 - Type 2 diabetes mellitus with diabetic chronic kidney disease; N18.3 - Chronic kidney disease, stage 3 (moderate) (6) Atrial fibrillation, permanent Current Visit: No Status: Chronic Assessment and plan: rate controlled, continue Metoprolol continue Warfarin for anticoagulation INR therapeutic - Time Spent With Patient less than 15 minutes - Subjective Interval history: Patient is awake and alert. Sitting up in bed. Not in any distress. Says she feels better. Denies chest pain or shortness of breath. Tolerating oral diet. No fever. HD on MWF. She does have extensive bruising around both eyes, due to previous falls. No other acute events or complaints. - Constitutional Vitals: Temp Pulse Resp BP Pulse Ox 97.8 F 69 16 119/56 99 01/20/17 07:39 01/20/17 07:39 01/20/17 11:10 01/20/17 07:39 01/20/17 11:10 General appearance: Present: A&O X 3, pleasant, obese, answers questions appropriately - Head Additional comments: bruising around both eyes, mild tenderness - secondary to previous falls - Eye Eye exam: Present: EOMI, periorbital tenderness - ENT ENT exam: Present: mucous membranes moist - Neck Neck exam general surgery: Present: supple Additional comments: HD catheter on left side - Respiratory Respiratory exam: Present: CTAB. Absent: rhonchi, wheezes - Cardiovascular Cardiovascular exam: Present: irregular rhythm, +S1, +S2, systolic murmur - GI/Abdominal GI/Abdominal exam: Present: soft. Absent: guarding, splenomegaly - Extremities Exam Extremities exam: Present: pedal edema, radial pulses palpable and symetrical. Absent: cyanotic - Neurological Exam Neurological exam: Present: alert, oriented X3, no focal deficits Internal Medicine: Result - Labs CBC & Chem 7: 01/20/17 03:45 01/20/17 03:45 Labs: Short CBC 01/20/17 Range/Units 03:45 WBC 8.6 (4.3-11.1) K/mcL Hgb 9.0 L (11.5-15.4) g/dL Hct 31.1 L (35.3-44.9) % Plt Count 227 (140-400) K/mcL Neutrophils # 6.0 (1.6-8.9) K/mcL BMP 01/20/17 03:45 Sodium 131 L Potassium 3.7 Chloride 92 L Carbon Dioxide 29 BUN 36 H Creatinine 4.43 H Glucose 182 H Calcium 9.1 - ABG Interpretation ABG results: ABG ABG pH 7.38 pH Units (7.32-7.45) 01/18/17 17:02 ABG pCO2 54 mmHg (35-45) H 01/18/17 17:02 ABG pO2 99 mmHg (85-104) 01/18/17 17:02 ABG O2 Saturation 98 % (95-98) 01/18/17 17:02 PT/INR, D-dimer PT 25.1 Seconds (9.4-12.1) H 01/20/17 03:45 Consult Discharge Plan - Plan Referrals: Henrry Mccullough MD [Primary Care Provider] -
[2017-01-20] MEDS: *HR* Warfarin 3 MG TABLET PO SCH (17:59)
[2017-01-21] MEDS: Ipratropium/Albuterol Neb 3 ML IH SCH ×3 (03:52→16:11)
[2017-01-21 04:31] LABS: INR 2.4; Prothrombin Time 26.9 Seconds (9.4-12.1)
[2017-01-21 04:40] LABS: Calcium 9.2 mg/dL (8.6-10.8); Potassium 4.5 mEq/L (3.5-4.5)
[2017-01-21] MEDS: Insulin LISPRO 300 UNITS/3 ML VIAL SQ SCH ×2 (08:23→13:30)
[2017-01-21] MEDS: Folic Acid 1 MG TABLET PO SCH (08:30)
[2017-01-21] MEDS: GuaiFENesin/Dextromethorphan TABLET PO SCH (08:30)
[2017-01-21] MEDS: Pantoprazole 40 MG VIAL IVP SCH (08:31)
[2017-01-21] MEDS: Aspirin 81 MG TAB.CHEW PO SCH (08:31)
[2017-01-21] MEDS: *HR* HYDROcodone/Acet 5/325 mg TABLET PO PRN ×2 (08:34→14:33)
[2017-01-21] MEDS ORDERED: 0.9 % Sodium Chloride 250 ML IVC PRN (08:41)
--- NOTE | 2017-01-21 08:41 | Nephrology Progress Note ---
Date of Encounter: 01/21/17 Time of Encounter: 08:39 - Assessment and Plan (1) End-stage renal disease Current Visit: No Status: Acute The patient will undergo dialysis today. We will use her tunnel dialysis catheter and let her AV fistula rest. (2) Somnolence Current Visit: Yes Status: Acute (3) Acute hypercapnic respiratory failure Current Visit: Yes Status: Acute Subjective Interval history: The patient reports she is feeling better. She denies any shortness of breath. She does continue to have some hip discomfort but it appears to be controlled with her current pain medications. She is scheduled for her usual dialysis today. Objective - Vital Signs Vital signs: Vital Signs Temp Pulse Resp BP Pulse Ox 01/21/17 07:13 98.1 F 81 16 108/82 95 01/21/17 05:31 77 122/57 96 01/21/17 04:07 98.1 F 73 22 172/58 94 01/21/17 03:52 16 116/65 99 01/20/17 23:52 98.4 F 63 18 116/65 98 01/20/17 21:26 17 96 01/20/17 20:39 98.4 F 72 18 134/86 97 01/20/17 15:41 97.5 F L 71 16 111/56 98 01/20/17 15:33 16 98 01/20/17 11:40 97.7 F 68 16 95/68 98 01/20/17 11:10 16 99 Intake and Output 01/20/17 01/21/17 01/21/17 23:59 07:59 15:59 Intake Total 0 / 0 0 / 0 Balance 0 / 0 0 / 0 Intake: Oral 0 / 0 0 / 0 Other: # Voids 0 0 Weight 92.6 kg Blood Glucose* 164 155 Patient Weight 01/21/17 23:59 Weight 92.6 kg - General Appearance Exam: The patient is alert and oriented. She is in no acute distress. Lungs diminished breath sounds. Heart irregular rate and rhythm consistent with atrial fibrillation. Abdomen is benign. There is minimal lower extremity swelling. There is periorbital ecchymosis. There is a tunnel dialysis catheter in the left chest and a AV fistula in the left upper extremity. - Lab 01/20/17 03:45 01/21/17 04:11 Most recent lab results ABG pH 7.38 pH Units (7.32-7.45) 01/18/17 17:02 ABG pCO2 54 mmHg (35-45) H 01/18/17 17:02 ABG pO2 99 mmHg (85-104) 01/18/17 17:02 ABG HCO3 31.9 mEQ/L (21-27) H 01/18/17 17:02 ABG O2 Saturation 98 % (95-98) 01/18/17 17:02 Calcium 9.2 mg/dL (8.6-10.8) 01/21/17 04:11 Phosphorus 3.4 mg/dL (2.3-4.7) 01/19/17 04:37 Magnesium 2.1 mg/dL (1.6-2.6) 01/19/17 04:37 Consult Discharge Plan - Plan Referrals: Henrry Mccullough MD [Primary Care Provider] -
[2017-01-21] MEDS: Budesonide Neb 0.25 MG/2 ML IH SCH (10:56)
[2017-01-21] MEDS ORDERED: *HR* Heparin 10,000 UNIT/10 ML VIAL IV PRN (12:31)
[2017-01-21] MEDS ORDERED: 0.9 % Sodium Chloride 2,000 ML ONE (13:06)
[2017-01-21] MEDS: Doxycycline 100 MG in 0.9 % Sodium Chloride Mini Bag 100 ML IVPB SCH (14:32)
[2017-01-21 15:09] VITALS: BP 110/79
--- NOTE | 2017-01-21 15:17 | Discharge Summary ---
Date of Encounter: 01/21/17 Time of Encounter: 08:15 - Discharge Diagnosis (1) Acute respiratory failure with hypoxia and hypercapnia Priority: Primary Status: Acute Comments: Resolved Patient uses 2L NC at home for COPD Acute event likely secondary to acute diastolic heart failure, respiratory acidosis and medication overdose (oxycodone) in the setting of ESRD. Duonebs q 6hr PRN. Pulmicort nebs. Incentive spirometry CTA chest shows no PE, moderate sized left and small right pleural effusion, interstitial pulmonary edema, near complete consolidation of the bilateral lower lobes. (2) End stage renal disease Priority: Primary Status: Acute Comments: HD on MWF, Nephrology following continue regular HD sessions (3) COPD (chronic obstructive pulmonary disease) Priority: Primary Status: Chronic Comments: causing resp failure - acute exacerabtion now improved Continue Duonebs, Pulmicort, O2 Qualifiers: COPD type: unspecified COPD Qualified Code(s): J44.9 - Chronic obstructive pulmonary disease, unspecified (4) Chronic diastolic HF (heart failure) Priority: Primary Status: Chronic Comments: LVEF 60%, probable diastolic dysfunction with acute exacerbation - Improved continue current meds (5) Type 2 diabetes mellitus with diabetic chronic kidney disease Priority: Secondary Status: Chronic Comments: hyperglycemia, insulin-dependent continue home dose of insulin, glucose checks. Qualifiers: Diabetes mellitus director of community life insulin use: without mcfp use Chronic kidney disease stage: stage 3 (moderate) Qualified Code(s): E11.22 - Type 2 diabetes mellitus with diabetic chronic kidney disease; N18.3 - Chronic kidney disease, stage 3 (moderate) (6) Atrial fibrillation, permanent Priority: Secondary Status: Chronic Comments: rate controlled, continue Metoprolol continue Warfarin for anticoagulation INR therapeutic - Discharge Medications Home Medications: Metoprolol [Lopressor] 12.5 mg PO BID 08/14/15 [History] Sertraline [Zoloft] 150 mg PO DAILY 08/14/15 [History] Sucralfate [Carafate] 2 gm PO BID 08/14/15 [History] glipiZIDE [Glucotrol] 10 mg PO BID 08/14/15 [History] Lactulose 10 gm PO QID 06/24/16 [History] Aspirin 81 mg PO DAILY 07/11/16 [History] Fluticasone/Vilanterol [Breo Ellipta 100-25 Mcg INH] 1 puff IH DAILY 07/11/16 [ History] Pantoprazole Sodium [Protonix] 40 mg PO DAILY 07/11/16 [History] Diltiazem [Cardizem] 30 mg PO TID 09/20/16 [History] Gabapentin [Neurontin] 100 mg PO BID 09/20/16 [History] Sennosides [Senna] 17.2 mg PO DAILY 09/20/16 [History] Simethicone [Gas-X] 80 mg PO BID PRN 09/20/16 [History] Insulin ASPART [Novolog Flexpen] 0 - 12 units SQ TID PRN 11/13/16 [History] Folic Acid 1 mg PO DAILY #30 tablet 12/03/16 [Rx] Ipratropium/Albuterol Neb [Duoneb] 3 ml IH [id number] PRN 30 Days 12/03/16 [Rx] Ferrous Gluconate 324 mg PO TID 01/12/17 [History] Warfarin [Coumadin] 2 mg PO QPM 01/12/17 [History] Glucagon,Human Recombinant [Glucagen] 1 mg IJ DAILY PRN 01/18/17 [History] Allergies/Adverse Reactions: Allergies ceftriaxone [From Rocephin] Allergy (Severe, Verified 01/18/17 06:24) Anaphylaxis Occured at [facility]. Required ICU transfer, intubation, and mechanical ventilation. ciprofloxacin [From Cipro] Allergy (Mild, Verified 01/18/17 06:24) Rash sulfamethoxazole [From Bactrim] Allergy (Verified 01/18/17 06:24) See Comments trimethoprim [From Bactrim] Allergy (Verified 01/18/17 06:24) See Comments rozeta Allergy (Uncoded 01/18/17 06:24) See Comments Date of admission: 01/18/17 18:10 Primary care physician: Henrry Mccullough MD Consults: 01/19/17 16:47 Consult to Occupational Therapy [CONS] Routine Comment: Evaluate, develop and implement POC Reason for Consult: recent hip fx weakness, ecf placement Consult to Physical Therapy [CONS] Routine Comment: Evaluate, develop and implement POC Reason for Consult: recent hip fx, weakness, recent ecf stay Consult to Wound Care [CONS] Routine Reason for Consult: has stage 2 to coccyx and moisture assosciated dermatitis to buttocks Call Completed: No 01/21/17 08:45 Consult to Dialysis [CONS] ONCE Anticipated date of discharge: 01/21/17 - Patient Status Disposition: Transfer SNF Condition: Fair Functional capacity at discharge: uses cane/walker Overall status at discharge: patient is progressing back to baseline - Discharge Instructions Follow Up With: Henrry Mccullough MD [Primary Care Provider] - Quincy Bowden DO [Non-Partnered Physician] - - Diet and Activity Activity: ambulate only with your walker, as per physical therapy, resume usual activities as tolerated, wear oxygen at all times Diet: advance to your usual diet, diabetic diet Hospital course: Ms. Rodriguez is a 71 year old female with past medical history of arthritis, atrial fibrillation, CHF, COPD, GERD, hyperlipidemia, hypertension and end- stage renal disease on hemodialysis. She presented with complaints of shortness of breath from the [facility]. She was initially found to have hypoxia and hypotension. On initial evaluation patient was somnolent and unable to provide much history. According to the family patient's oxygen had been bumped up at the [facility]dc and the [facility] staff found the patient to be confused and hypotensive.patient was admitted for acute enceph. CT of the chest for PE protocol was negative for PE but did show moderate size left right pleural effusion and pulmonary edema. Respiratory failure was likely combination of CHF exacerbation along with probable medication overdose of narcotics in the setting of end-stage renal disease. Patient was also found to have leukocytosis and started on IV antibiotics. She was on DuoNeb breathing treatment and also on Pulmicort. Cultures are negative. EKG shows atrial fibrillation which is chronic for the patient. Patient was given 1 dose of Narcan in the ED and she did perk up. Nephrology was consultative from the ER. Dr. Bowden evaluated the patient and the patient underwent regular hemodialysis on the day of admission and also on the day of discharge. Patient' s symptoms are now improved. She was continued on all her home medications. Her INR is therapeutic. She is not tolerating oral diet well. She needs assistance with ambulation. Physical therapy has evaluated the patient. Her initial respiratory acidosis and respiratory failure and also likely due to COPD and she was on DuoNeb breathing treatments. Patient will continue on metoprolol for a atrial fibrillation and also continue on warfarin for anticoagulation. Patient is an LVEF of 60% and probably has diastolic dysfunction and the exacerbation is now improved. She is on insulin for diabetes and her regular home dose of insulin will be continued. Patient and her grandson who was in bed side have been explained about the patient's condition and plan of care. They understood and agreed. No unanswered questions. Patient requires PT and OT evaluation at the [facility]. She has had several falls which caused significant bruising around her head and eyes. Patient is a fall risk and also a bleeding risk. Patient and family members have been explained about this in detail. They agreed. No other acute events or complications during his stay in the hospital. - Time Spent with Patient Total time spent providing and/or coordinating discharge services: Less than 30 minutes - Constitutional Vitals: Temp Pulse Resp BP Pulse Ox 97.5 F L 72 16 110/79 95 01/21/17 15:06 01/21/17 15:06 01/21/17 15:06 01/21/17 15:06 01/21/17 15:06 General appearance: Present: A&O X 3, pleasant, obese, answers questions appropriately - Head Additional comments: bruising around both eyes, no tenderness - secondary to previous falls - Neck Neck exam general surgery: Present: supple - Respiratory Respiratory exam: Present: CTAB. Absent: rales, rhonchi, wheezes - Cardiovascular Cardiovascular exam: Present: irregular rhythm, +S1, +S2, systolic murmur - GI/Abdominal GI/Abdominal exam: Present: soft. Absent: guarding, tenderness - Extremities Exam Extremities exam: Present: radial pulses palpable and symetrical. Absent: cyanotic, tenderness - Neurological Exam Neurological exam: Present: alert, oriented X3, no focal deficits
--- NOTE | 2017-01-21 15:25 | Physician Discharge Referral ---
ExtendedCare Referral Info Transfer To: SNF Provider in Charge after Transfer: PCP Institutional Level of Care: Skilled - Diagnosis (1) Acute respiratory failure with hypoxia and hypercapnia Status: Acute (2) End stage renal disease Status: Acute (3) COPD (chronic obstructive pulmonary disease) Status: Chronic (4) Chronic diastolic HF (heart failure) Status: Chronic (5) Type 2 diabetes mellitus with diabetic chronic kidney disease Status: Chronic (6) Atrial fibrillation, permanent Status: Chronic - Transfer Medications Home Medications: Metoprolol [Lopressor] 12.5 mg PO BID 08/14/15 [History] Sertraline [Zoloft] 150 mg PO DAILY 08/14/15 [History] Sucralfate [Carafate] 2 gm PO BID 08/14/15 [History] glipiZIDE [Glucotrol] 10 mg PO BID 08/14/15 [History] Lactulose 10 gm PO QID 06/24/16 [History] Aspirin 81 mg PO DAILY 07/11/16 [History] Fluticasone/Vilanterol [Breo Ellipta 100-25 Mcg INH] 1 puff IH DAILY 07/11/16 [ History] Pantoprazole Sodium [Protonix] 40 mg PO DAILY 07/11/16 [History] Diltiazem [Cardizem] 30 mg PO TID 09/20/16 [History] Gabapentin [Neurontin] 100 mg PO BID 09/20/16 [History] Sennosides [Senna] 17.2 mg PO DAILY 09/20/16 [History] Simethicone [Gas-X] 80 mg PO BID PRN 09/20/16 [History] Insulin ASPART [Novolog Flexpen] 0 - 12 units SQ TID PRN 11/13/16 [History] Folic Acid 1 mg PO DAILY #30 tablet 12/03/16 [Rx] Ipratropium/Albuterol Neb [Duoneb] 3 ml IH [id number] PRN 30 Days 12/03/16 [Rx] Ferrous Gluconate 324 mg PO TID 01/12/17 [History] Warfarin [Coumadin] 2 mg PO QPM 01/12/17 [History] Glucagon,Human Recombinant [Glucagen] 1 mg IJ DAILY PRN 01/18/17 [History] Allergies/Adverse Reactions: Allergies ceftriaxone [From Rocephin] Allergy (Severe, Verified 01/18/17 06:24) Anaphylaxis Occured at [facility]. Required ICU transfer, intubation, and mechanical ventilation. ciprofloxacin [From Cipro] Allergy (Mild, Verified 01/18/17 06:24) Rash sulfamethoxazole [From Bactrim] Allergy (Verified 01/18/17 06:24) See Comments trimethoprim [From Bactrim] Allergy (Verified 01/18/17 06:24) See Comments rozeta Allergy (Uncoded 01/18/17 06:24) See Comments - Respiratory Orders Oxygen / L per min (2L NC) Smoking Cessation: Smoking cessation has been advised. For more information, call the [place] Tobacco Quit Line at 3-287-MGLU-NOW. - Lab Orders Lab Orders: CBC - Ancillary Orders May use pressure relief devices daily prn - Advance Directives Code Status: Full Code - Mobility Orders Ambulate - Rehabiliation Orders Rehab Potential: Fair Rehab Orders: ROM Exercises, Evaluation for Physical Therapy, Evaluation for Occupational Therapy - Treatments Skin tear care topically daily PRN per policy - Diet Orders Cardiac CERTIFICATION: I certify that the transfer of the above named patient to an Extended Care Facility is necessary for the continuing treatment of the diagnosis listed. The above information is true and accurate reflection of patient's current condition. Confidential - Redisclosure prohibited without a patient's written consent.
[2017-01-21] MEDS ORDERED: Vancomycin 1,000 MG in D5% in Water 250 ML IVPB ONE (16:00)
[2017-01-21] MEDS: *HR* Warfarin 3 MG TABLET PO SCH (18:13)
[2017-01-21] MEDS ORDERED: Aminoglycoside Consult 1 EACH MC ONE ×2 (18:55)
== END 2017-01-21 18:56 | DRG 189 ==
LOC: 2NNU 03:16 → EMEROO 03:16 → 2NNU 06:51 → 2NENU 01-19 14:26
PROVIDERS: ADMIT Internal Medicine; ATTEND Internal Medicine

== ENCOUNTER 2017-01-28 06:25 | Inpatient (IN) ==
--- NOTE | 2017-01-28 06:31 | Emergency Department Note ---
START Narrative - START START: Patient seen upon presentation. She arrives by EMS from her extended care facility. She complains of dyspnea. Denies chest pain but does admit to pain to her lower back at her tailbone. She has a known history of end-stage renal disease dialysis dependent on Wednesdays and Fridays. She is oxygen dependent. She is tachypneic on exam. Lungs diffusely rhonchorous. She has subacute ecchymosis to her periorbital region and forehead from a recent fall. I have reviewed her home medication list. Initial orders placed. Further care to be assumed by the oncoming physicians
--- NOTE | 2017-01-28 06:50 | Emergency Department Note ---
Disposition Clinical Impression: CHF exacerbation Qualifiers: Congestive heart failure type: combined Qualified Code(s): I50.43 - Acute on chronic combined systolic (congestive) and diastolic (congestive) heart failure Disposition: Admitted As Inpatient Condition: Undetermined Referrals: NO,PCP [Non-Partnered Physician] - Forms: ED Satisfaction Letter Time of Disposition: 08:52 SOB HPI - General Chief Complaint: ED Shortness of Breath/Dyspnea Stated Complaint: AMANDA Time Seen by Provider: 01/28/17 06:27 Source: patient, EMS Mode of arrival: EMS Limitations: no limitations Nursing Notes Reviewed: Yes Vital Signs Reviewed: Yes - History of Present Illness 71-year-old female with history of dialysis his last dialysis was 3 days ago arrives [facility] emergency department via EMS complaining of difficulty breathing that started roughly 12 hours prior to. The patient states this progressively worsened. The patient denies any other acute complaints. The patient is experiencing pain and bruising throughout her body from a subacute fall which she thinks was about 5-7 days ago. The patient does have bruising around bilateral eyes as well as all over upper and lower extremities. The patient denies any chest pain, abdominal pain, focalized weakness. The patient is dyspnic and using accessory muscle use at this time. We will place the patient on BiPAP now. On warfarin for history of atrial fibrillation. Pt Subjective Complaint: shortness of breath Onset (ago): hour(s) (12) Severity: moderate Consistency/Duration: constant, gradually worsening Improves with: oxygen Worsens with: lying flat Known history of: congestive heart failure Associated symptoms: Reports: denies other symptoms Treatment prior to arrival: oxygen Cough present: No Sputum production: No - Related Data Home oxygen amount: none Home Medications Medication Instructions Recorded Confirmed Metoprolol [Lopressor] 12.5 mg PO BID 08/14/15 01/18/17 Sertraline [Zoloft] 150 mg PO DAILY 08/14/15 01/18/17 Sucralfate [Carafate] 2 gm PO BID 08/14/15 01/18/17 glipiZIDE [Glucotrol] 10 mg PO BID 08/14/15 01/18/17 Lactulose 10 gm PO QID 06/24/16 01/18/17 Aspirin 81 mg PO DAILY 07/11/16 01/18/17 Fluticasone/Vilanterol [Breo 1 puff IH DAILY 07/11/16 01/18/17 Ellipta 100-25 Mcg INH] Pantoprazole Sodium [Protonix] 40 mg PO DAILY 07/11/16 01/18/17 Diltiazem [Cardizem] 30 mg PO TID 09/20/16 01/18/17 Gabapentin [Neurontin] 100 mg PO BID 09/20/16 01/18/17 Sennosides [Senna] 17.2 mg PO DAILY 09/20/16 01/18/17 Simethicone [Gas-X] 80 mg PO BID PRN 09/20/16 01/18/17 Insulin ASPART [Novolog Flexpen] 0 - 12 units SQ TID PRN 11/13/16 01/18/17 Ferrous Gluconate 324 mg PO TID 01/12/17 01/18/17 Warfarin [Coumadin] 2 mg PO QPM 01/12/17 01/18/17 Glucagon,Human Recombinant 1 mg IJ DAILY PRN 01/18/17 01/18/17 [Glucagen] Previous Rx's Medication Instructions Recorded Folic Acid 1 mg PO DAILY #30 tablet 12/03/16 Ipratropium/Albuterol Neb [Duoneb] 3 ml IH [id number] PRN 30 Days 12/03/16 Allergies Allergy/AdvReac Type Severity Reaction Status Date / Time ceftriaxone [From Rocephin] Allergy Severe Anaphylaxis Verified 01/18/17 06:24 ciprofloxacin [From Cipro] Allergy Mild Rash Verified 01/18/17 06:24 sulfamethoxazole Allergy See Verified 01/18/17 06:24 [From Bactrim] Comments trimethoprim [From Bactrim] Allergy See Verified 01/18/17 06:24 Comments rozeta Allergy See Uncoded 01/18/17 06:24 Comments All systems ED: reviewed and negative except as stated. Constitutional: Denies: fever, chills, weakness, weight change Cardiovascular: Reports: dyspnea on exertion, edema. Denies: chest pain, palpitations, syncope Respiratory: Reports: dyspnea. Denies: cough, wheezes, hemoptysis, stridor Gastrointestinal: Denies: abdominal pain, nausea, vomiting, diarrhea, constipation, hematemesis, melena, hematochezia Musculoskeletal: Denies: back pain, neck pain, arthralgia, myalgia Integumentary: Denies: rash, abrasion, lesions Neurological: Denies: headache, weakness, numbness, paresthesias, confusion, abnormal gait, vertigo Past Medical History - Past Medical History Attestation: Yes The following information was validated with the patient. Source: patient Medical history: Reports: arthritis, atrial fibrillation, cirrhosis, CHF, COPD, diabetes, GERD, hyperlipidemia, hypertension, renal disease, other Surgical history: Reports: cholecystectomy, hysterectomy Psychiatric history: Reports: anxiety, panic disorder [employer] history: Reports: bilateral tubal ligation - Social History Smoking Status: Never smoker Smokeless Tobacco Status: No Alcohol use: Reports: none Drug use: Reports: none Physical Exam - General Limitations: no limitations General appearance: alert, in distress (In respiratory) - Head Head exam: atraumatic, normocephalic, normal inspection - Chest Chest inspection: Present: normal inspection, symmetric chest wall rise - Respiratory Respiratory exam: Present: other (Rales bilateral lobes) - Cardiovascular Cardiovascular exam: Present: regular rate, irregular rhythm, normal heart sounds - Abdominal Exam Abdominal exam: Present: soft, Non-Tender. Absent: tenderness, distention, guarding, rebound, rigidity - Extremities Exam Extremities exam: Present: normal inspection, full ROM. Absent: tenderness, pedal edema - Back Exam Back exam: Present: normal inspection, full ROM. Absent: tenderness - Neurological Exam Neurological exam: Present: alert, oriented X3 - Skin Skin exam: Present: warm, dry, intact, normal color Course Vital Signs Temperature 98.4 F 01/28/17 06:27 Pulse Rate 87 01/28/17 06:27 Respiratory Rate 20 01/28/17 06:27 Blood Pressure 129/89 01/28/17 06:27 O2 Sat by Pulse Oximetry 85 01/28/17 06:27 Temperature 98.4 F 01/28/17 06:27 Pulse Rate 87 01/28/17 08:31 Respiratory Rate 14 01/28/17 08:31 Blood Pressure 93/67 01/28/17 08:31 O2 Sat by Pulse Oximetry 95 01/28/17 08:31 Oxygen Delivery Oxygen Delivery Bipap Shortness of Breath/Dyspnea - MDM Narrative Medical decision making narrative: I examined this patient and my medical decision-making was reviewed with the DRAPERY EXAMINER/PA/Advanced Practice Nurse/Resident Physician. I agree with the documented findings, disposition and treatment plan as described except to the extent set forth below. Good evaluated this patient with Dr. Chance and myself , agree with his evaluation and management plan, supervise care the patient's stay. Patient comes in today with dyspnea. She is a dialysis patient and she is not dialyzed today. It looks that she has been following shows a lots of bruising that she has no neuro deficits. We will order a workup on her CT her head and did not speak with nephrology. She is in agreement with this plan. Starting her on BiPAP at this point which she is tolerating well. Chest X-Ray 01/28/17 06:27 IMPRESSION: Cardiomegaly with overt pulmonary edema suggesting moderate CHF. Left basilar opacity may represent consolidation from pneumonia versus atelectasis. D/ / Beto Kiser MD / Beto Kiser MD Interpreting Provider: Beto Kiser MD Head CT 01/28/17 07:12 IMPRESSION: 1. No acute intracranial abnormality. 2. Stable chronic small vessel ischemic white matter disease. 3. Chronic lacunar infarct within the right caudate head. 4. Mild chronic left frontal sinusitis. 5. Mild bilateral mastoid disease. D/ / 01/28/2017 08:11:23 Asaf Garrido MD / ancelmo Interpreting Provider: Asaf Garrido MD 0844 hrs.: Patient is an CHF. Reta bring her into the hospital I do not think she has pneumonia based on her symptoms versus her chest x-ray. We will going to speak with nephrology, then hospitalist for admission. Patient's critical care time actually separately billable procedures is 30 minutes. Secondary to her acute respiratory failure secondary to her need for dialysis. 0845: Patient's exam improved with her respiratory status after receiving BiPAP. The patient states she is feeling much better at this time. Workup here indicates that the patient is likely suffering from a CHF exacerbation and fluid overload. The patient is due for dialysis today and this is likely contributing to the patient's symptoms. Head CT of the patient is negative for any acute findings. The patient does have quite a bit of bruising in the facial region. Patient denies any other complaints at this time. We will go ahead and admit the patient to the hospitalist for further workup and care. The patient will also be consulted with nephrology to make them aware of the patient's status. We will discuss with the hospitalist with coordination with patient's dialysis. 08 52: Patient accepted by hospitalist. Dr. Odonnell - Medical Records Medical records reviewed: Yes I reviewed the patient's medical records. - Lab Data Lab results reviewed: Yes I reviewed the patient's lab results. Result diagrams: 01/28/17 08:05 01/28/17 08:05 Lab Results 01/28/17 01/28/17 01/28/17 Range/Units 08:05 08:05 08:05 WBC 10.9 (4.3-11.1) K/mcL RBC 4.22 (3.82-4.97) M/mcL Hgb 10.0 L (11.5-15.4) g/dL Hct 36.2 (35.3-44.9) % MCV 85.8 (83.0-100.0) fL MCH 23.7 L (28.0-33.3) pg MCHC 27.6 L (31.6-35.5) g/dL RDW 21.0 H (11.5-14.5) % Plt Count 188 (140-400) K/mcL MPV 8.7 L (9.4-12.4) fL Immature Gran % 1.3 (0-4) % Seg Neutrophils % 87.2 % Lymphocytes % 3.2 % Monocytes % 7.8 % Eosinophils % 0.2 % Basophils % 0.3 % Neutrophils # 9.5 H (1.6-8.9) K/mcL Lymphocytes # 0.4 L (0.6-4.6) K/mcL Monocytes # 0.9 (0.0-1.3) K/mcL Eosinophils # 0.0 (0.0-0.6) K/mcL Basophils # 0.0 (0.0-0.2) K/mcL Nucleated RBCs/100 WBC 0.3 H (0) /100 WBC Platelet Estimate Normal (Normal) Hypochromasia Present A (Not Present) Anisocytosis 1+ A (Not Present) PT (9.4-12.1) Seconds INR Sodium 131 L (136-145) mEq/L Potassium 4.8 H (3.5-4.5) mEq/L Chloride 94 L (98-109) mEq/L Carbon Dioxide 28 (19-29) mEq/L BUN 40 H (7-20) mg/dL Creatinine 4.80 H (0.57-1.11) mg/dL Est GFR ( Amer) 11 L (> 60) Est GFR (Non-Af Amer) 9 L (> 60) BUN/Creatinine Ratio 8 (6-26) Glucose 240 H (70-99) mg/dL Calculated Osmolality 290 (280-300) Calcium 9.4 (8.6-10.8) mg/dL Total Bilirubin 0.6 (0.2-1.2) mg/dL Direct Bilirubin 0.4 (0.0-0.5) mg/dL Indirect Bilirubin 0.2 (0.0-1.2) mg/dL AST 10 (5-34) Units/L ALT 11 (0-55) Units/L Alkaline Phosphatase 144 H (38-126) Units/L Troponin I 0.04 H* (0-0.03) ng/mL B-Natriuretic Peptide (0-100) pg/mL Serum Total Protein 6.8 (6.0-8.3) g/dL Albumin 3.0 L (3.5-5.0) g/dL Globulin 3.8 H (2.4-3.5) g/dL Albumin/Globulin Ratio 0.8 L (1.1-2.2) 01/28/17 01/28/17 Range/Units 08:05 08:05 WBC (4.3-11.1) K/mcL RBC (3.82-4.97) M/mcL Hgb (11.5-15.4) g/dL Hct (35.3-44.9) % MCV (83.0-100.0) fL MCH (28.0-33.3) pg MCHC (31.6-35.5) g/dL RDW (11.5-14.5) % Plt Count (140-400) K/mcL MPV (9.4-12.4) fL Immature Gran % (0-4) % Seg Neutrophils % % Lymphocytes % % Monocytes % % Eosinophils % % Basophils % % Neutrophils # (1.6-8.9) K/mcL Lymphocytes # (0.6-4.6) K/mcL Monocytes # (0.0-1.3) K/mcL Eosinophils # (0.0-0.6) K/mcL Basophils # (0.0-0.2) K/mcL Nucleated RBCs/100 WBC (0) /100 WBC Platelet Estimate (Normal) Hypochromasia (Not Present) Anisocytosis (Not Present) PT 24.8 H (9.4-12.1) Seconds INR 2.2 Sodium (136-145) mEq/L Potassium (3.5-4.5) mEq/L Chloride (98-109) mEq/L Carbon Dioxide (19-29) mEq/L BUN (7-20) mg/dL Creatinine (0.57-1.11) mg/dL Est GFR ( Amer) (> 60) Est GFR (Non-Af Amer) (> 60) BUN/Creatinine Ratio (6-26) Glucose (70-99) mg/dL Calculated Osmolality (280-300) Calcium (8.6-10.8) mg/dL Total Bilirubin (0.2-1.2) mg/dL Direct Bilirubin (0.0-0.5) mg/dL Indirect Bilirubin (0.0-1.2) mg/dL AST (5-34) Units/L ALT (0-55) Units/L Alkaline Phosphatase (38-126) Units/L Troponin I (0-0.03) ng/mL B-Natriuretic Peptide 2021 H (0-100) pg/mL Serum Total Protein (6.0-8.3) g/dL Albumin (3.5-5.0) g/dL Globulin (2.4-3.5) g/dL Albumin/Globulin Ratio (1.1-2.2) - EKG Data EKG attestation: Yes I reviewed and interpreted this EKG. EKG results narrative: Heart rate 81 bpm. QTc [address] No [address] elevation or ST depression noted. Known atrial fibrillation.
[2017-01-28 08:12] LABS: Basophils % 0.3 %; Immature Granulocytes % 1.3 % (0-4)
[2017-01-28 08:13] LABS: Eosinophils % 0.2 %; Hematocrit 36.2 % (35.3-44.9); Lymphocytes # 0.4 K/mcL (0.6-4.6); Lymphocytes % 3.2 %; Mean Corpuscular HGB Conc 27.6 g/dL (31.6-35.5); Mean Corpuscular Hemoglobin 23.7 pg (28.0-33.3); Mean Corpuscular Volume 85.8 fL (83.0-100.0); Mean Platelet Volume 8.7 fL (9.4-12.4); Monocytes # 0.9 K/mcL (0.0-1.3); Monocytes % 7.8 %; Neutrophils # 9.5 K/mcL (1.6-8.9); Nucleated Red Blood Cells 0.3 /100 WBC (0); Platelet Count 188 K/mcL (140-400); Red Blood Count 4.22 M/mcL (3.82-4.97); Segmented Neutrophils % 87.2 %
[2017-01-28 08:16] LABS: INR 2.2; Prothrombin Time 24.8 Seconds (9.4-12.1)
[2017-01-28 08:26] LABS: Albumin/Globulin Ratio 0.8 (1.1-2.2); Anisocytosis 1+ (Not Present); Bilirubin,Direct 0.4 mg/dL (0.0-0.5); Bilirubin,Indirect 0.2 mg/dL (0.0-1.2); Bilirubin,Total 0.6 mg/dL (0.2-1.2); Calcium 9.4 mg/dL (8.6-10.8); Globulin 3.8 g/dL (2.4-3.5); Hypochromasia Present (Not Present); Platelet Estimate Normal (Normal); Potassium 4.8 mEq/L (3.5-4.5); Total Protein 6.8 g/dL (6.0-8.3)
--- NOTE | 2017-01-28 10:48 | Nephrology Consult Note ---
Date of Encounter: 01/28/17 Time of Encounter: 10:45 Assessment and Plan (1) End-stage renal disease Current Visit: Yes Status: Acute Patient presents with acute on chronic diastolic congestive heart failure. She will undergo dialysis today. She chronically has low blood pressure which does limit the amount of volume that can be removed on dialysis treatments. (2) Diastolic CHF, acute on chronic Current Visit: Yes Status: Acute (3) Atrial fibrillation Current Visit: No Status: Chronic Qualifiers: Atrial fibrillation type: chronic Qualified Code(s): I48.2 - Chronic atrial fibrillation History of Present Illness - History of Present Illness This is a 71-year-old female with end-stage renal disease. She receives dialysis every Saturday in [place]. Patient presented from the residential to the emergency room with worsening shortness of breath. Chest x-ray shows evidence of cardiomegaly and pulmonary edema. Patient also has underlying COPD. Patient requires BiPAP at night. The patient's daughter said that during this past night the residential did not place a BiPAP on the patient. Patient is currently on BiPAP when she was admitted to the hospital. She says she is breathing better. She is scheduled for her usual dialysis today. She has some mild lower extremity swelling. She appears to be in no acute distress. She denies any chest pain or chest discomfort. Patient was recently hospitalized with a hip fracture. She did not undergo surgical repair at that time. She continues to have some chronic right hip pain secondary to the fracture. She also complains of some chronic back pain. Past Med Surg Social Fam HX - Past Medical History Medical history: arthritis, atrial fibrillation, cirrhosis, CHF, COPD, diabetes , GERD, hyperlipidemia, hypertension, renal disease, other Psychiatric history: anxiety, panic disorder - Past Surgical History Surgical History: cholecystectomy, hysterectomy - Social History Smoking Status: Never smoker Smokeless Tobacco Status: No Alcohol use: none Drug use: none - Family History Mother Living Status: Hx Family Cardiac Disorders: Yes Hx Family GI Disorders: Yes Hx Family Endocrine Disorder: Yes Father Living Status: Hx Family Cardiac Disorders: Yes Hx Family Cancer: Yes Sister Living Status: Still Living Hx Family Cancer: Yes (Breast Cancer, age 40's) Hx Family Endocrine Disorder: Yes (diabetes mellitus) Brother Living Status: Still Living Hx Family Cardiac Disorders: No Hx Family Respiratory Disorders: No Hx Family Cancer: No Hx Family GI Disorders: No Hx Family Endocrine Disorder: Yes Hx Family Neuromuscular Disorders: No Hx Family Neurologic Disorders: No Hx Family HEENT Disorders: No Hx Family Autoimmune Disorders: No Medications and Allergies Metoprolol [Lopressor] 12.5 mg PO BID 08/14/15 [History] Sertraline [Zoloft] 150 mg PO DAILY 08/14/15 [History] Sucralfate [Carafate] 2 gm PO BID 08/14/15 [History] glipiZIDE [Glucotrol] 10 mg PO BID 08/14/15 [History] Lactulose 10 gm PO QID 06/24/16 [History] Aspirin 81 mg PO DAILY 07/11/16 [History] Fluticasone/Vilanterol [Breo Ellipta 100-25 Mcg INH] 1 puff IH DAILY 07/11/16 [ History] Pantoprazole Sodium [Protonix] 40 mg PO DAILY 07/11/16 [History] Diltiazem [Cardizem] 30 mg PO TID 09/20/16 [History] Gabapentin [Neurontin] 100 mg PO BID 09/20/16 [History] Sennosides [Senna] 17.2 mg PO DAILY 09/20/16 [History] Simethicone [Gas-X] 120 mg PO BID PRN 09/20/16 [History] Insulin ASPART [Novolog Flexpen] 0 - 12 units SQ TID MDD PER SLIDING SCALE 11/13 [History] Folic Acid 1 mg PO DAILY #30 tablet 12/03/16 [Rx] Ipratropium/Albuterol Neb [Duoneb] 3 ml IH [id number] PRN 30 Days 12/03/16 [Rx] Ferrous Gluconate 324 mg PO TID 01/12/17 [History] Warfarin [Coumadin] 2 mg PO HS 01/12/17 [History] Amino Acids/Protein Hydrolys [Pro-Stat Awc Liquid] 30 ml PO BID 01/28/17 [ History] Ipratropium/Albuterol Neb [Duoneb] 3 ml IH Q6HR PRN 01/28/17 [History] Mupirocin [Bactroban Oint] 1 appl TP MOWEFR 01/28/17 [History] Oxycodone HCl 10 mg PO Q6H PRN 01/28/17 [History] Allergies ceftriaxone [From Rocephin] Allergy (Severe, Verified 01/18/17 06:24) Anaphylaxis Occured at [facility]. Required ICU transfer, intubation, and mechanical ventilation. ciprofloxacin [From Cipro] Allergy (Mild, Verified 01/18/17 06:24) Rash sulfamethoxazole [From Bactrim] Allergy (Verified 01/18/17 06:24) See Comments trimethoprim [From Bactrim] Allergy (Verified 01/18/17 06:24) See Comments rozeta Allergy (Uncoded 01/18/17 06:24) See Comments Review of Systems Constitutional: as per HPI Eyes: bilateral: blurred vision (patient denies), diplopia (patient denies) Nose, mouth and throat: no dizziness, no headache(s) Cardiovascular: dyspnea, dyspnea on exertion, edema Respiratory: dyspnea, dyspnea on exertion Gastrointestinal: no abdominal pain, no change in bowel habits Musculoskeletal: no muscle weakness, no numbness Musculoskeletal: left: hip pain Integumentary: no hirsutism, no striae Neurological: weakness Psychiatric: no depression, no difficulty concentrating Endocrine: as per HPI Hematologic/Lymphatic: no easy bruising, no lymphadenopathy Exam - Vital Signs Vital signs: Initial Vital Signs Temp Pulse Resp BP Pulse Ox 98.4 F 87 20 129/89 85 01/28/17 06:27 01/28/17 06:27 01/28/17 06:27 01/28/17 06:27 01/28/17 06:27 Vital Signs - Last 8 Hours Temp Pulse Resp BP Pulse Ox 01/28/17 09:46 97.6 F 76 14 98/55 95 01/28/17 09:08 14 102/68 Intake and Output 01/27/17 01/28/17 01/28/17 23:59 07:59 15:59 Intake Total 0 / 0 Balance 0 / 0 Intake: Oral 0 / 0 Other: Stool Size Small Stool Consistency formed Stool Characteristics Normal for Patient Stool Color Brown # Bowel Movement Diapers 1 Weight 91.2 kg Blood Glucose* 238 Patient Weight 01/28/17 23:59 Weight 91.2 kg - General Appearance Exam: Patient is alert and oriented. She is in no acute distress. She is currently on BiPAP. Lungs manage breath sounds. She has bibasilar rales in the bases. Heart irregular rate and rhythm. Abdomen shows normal bowel sounds. No bruits masses in her megaly or tenderness. There is no guarding or rigidity. Lower [place] show 1+ lower extremity swelling. There is an immature AV fistula in the left arm. There is a tunnel dialysis catheter in the right chest. Results - Lab Results 01/28/17 08:05 01/28/17 08:05 Most recent lab results Calcium 9.4 mg/dL (8.6-10.8) 01/28/17 08:05 Consult Discharge Plan - Plan Referrals: Henrry Mccullough MD [Primary Care Provider] -
[2017-01-28] MEDS ORDERED: 0.9 % Sodium Chloride 250 ML IVC PRN (10:50)
[2017-01-28] MEDS ORDERED: Simethicone 80 MG TAB.CHEW PO PRN (13:25)
[2017-01-28] MEDS ORDERED: Ipratropium/Albuterol Neb 3 ML IH PRN (13:25)
[2017-01-28] MEDS ORDERED: *HR* Dextrose 50 % in Water (Syg) 50 ML SYRINGE IVP PRN (13:27)
[2017-01-28] MEDS ORDERED: D5% in Water 1,000 ML IVC PRN (13:27)
[2017-01-28] MEDS ORDERED: Dextrose Gel 15 GM PO PRN ×2 (13:27)
[2017-01-28] MEDS ORDERED: *HR* HYDROmorphone (PF) 1 MG/ML SYRINGE IVP PRN (13:29)
[2017-01-28] MEDS ORDERED: Acetaminophen 325 MG TABLET PO PRN (13:29)
[2017-01-28] MEDS ORDERED: Naloxone 0.4 MG/ML INJ IVP PRN (13:29)
[2017-01-28] MEDS ORDERED: Ondansetron 4 MG/2 ML VIAL IVP PRN (13:29)
[2017-01-28] MEDS: Insulin LISPRO 300 UNITS/3 ML VIAL SQ SCH ×3 (14:44→21:49)
--- NOTE | 2017-01-28 15:05 | Internal Med History&Physical ---
Date of Encounter: 01/28/17 Time of Encounter: 13:02 Assessment and Plan (1) Acute on chronic diastolic heart failure Current visit: Yes Status: Acute Patient is more hypoxic and short of breath. Chest x-ray shows pulmonary edema suggestive of CHF. Her echocardiogram from November 2016 showed ejection fraction of 60% with LVH and indeterminate diastolic dysfunction. Patient to have fluid management with hemodialysis per nephrology. She will have hemodialysis today. I have discussed the case with Dr. Bowden, we will consult. Continue with BiPAP for work of breathing support. Trend troponin to rule out ACS as a possible trigger for this CHF exacerbation. Monitor on telemetry. (2) End-stage renal disease on hemodialysis Current visit: Yes Status: Acute Nephrology consult. Continue with hemodialysis. (3) Fluid overload Current visit: Yes Status: Acute Fluid removal with hemodialysis. Qualifiers: Hypervolemia type: unspecified Qualified Code(s): E87.70 - Fluid overload, unspecified (4) Chronic atrial fibrillation Current visit: Yes Status: Acute Continue with diltiazem for rate control. Anticoagulation with Coumadin. (5) IDDM (insulin dependent diabetes mellitus) Current visit: No Status: Chronic We will resume insulin sliding scale. Internal Medicine - H&P: HPI Chief complaint: Shortness of breath Admitted From: Emergency Dept Plans for Post Hospital Care: Home History of present illness: Ms. Rodriguez is a 71 year old female with multiple medical comorbidities including diastolic heart failure and end-stage renal disease on hemodialysis presented to the hospital for shortness of breath. The history is limited by the patient's somnolence and respiratory failure, currently she is on BiPAP for labored breathing. She reports that she had worsening shortness of breath for 1 day, it became severe at rest. Denies any associated chest pain cough and fever. No aggravating or alleviating factors. She gets hemodialysis on Saturday, last hemodialysis was a scheduled on Saturday. In the emergency department she appeared to have labored breathing and she was placed on BiPAP. Her chest x-ray revealed pulmonary congestion. A 10 point review of system was negative except for the history of present illness. Past Med Surg Social Fam HX - Past Medical History Medical history: arthritis, atrial fibrillation, cirrhosis, CHF, COPD, diabetes , GERD, hyperlipidemia, hypertension, renal disease, other Psychiatric history: anxiety, panic disorder - Past Surgical History Surgical History: cholecystectomy, hysterectomy - Social History Smoking Status: Never smoker Smokeless Tobacco Status: No Alcohol use: none Drug use: none - Family History Mother Living Status: Hx Family Cardiac Disorders: Yes Hx Family GI Disorders: Yes Hx Family Endocrine Disorder: Yes Father Living Status: Hx Family Cardiac Disorders: Yes Hx Family Cancer: Yes Sister Living Status: Still Living Hx Family Cancer: Yes (Breast Cancer, age 40's) Hx Family Endocrine Disorder: Yes (diabetes mellitus) Brother Living Status: Still Living Hx Family Cardiac Disorders: No Hx Family Respiratory Disorders: No Hx Family Cancer: No Hx Family GI Disorders: No Hx Family Endocrine Disorder: Yes Hx Family Neuromuscular Disorders: No Hx Family Neurologic Disorders: No Hx Family HEENT Disorders: No Hx Family Autoimmune Disorders: No Internal Medicine - H&P: Meds Metoprolol [Lopressor] 12.5 mg PO BID 08/14/15 [History] Sertraline [Zoloft] 150 mg PO DAILY 08/14/15 [History] Sucralfate [Carafate] 2 gm PO BID 08/14/15 [History] glipiZIDE [Glucotrol] 10 mg PO BID 08/14/15 [History] Lactulose 10 gm PO QID 06/24/16 [History] Aspirin 81 mg PO DAILY 07/11/16 [History] Fluticasone/Vilanterol [Breo Ellipta 100-25 Mcg INH] 1 puff IH DAILY 07/11/16 [ History] Pantoprazole Sodium [Protonix] 40 mg PO DAILY 07/11/16 [History] Diltiazem [Cardizem] 30 mg PO TID 09/20/16 [History] Gabapentin [Neurontin] 100 mg PO BID 09/20/16 [History] Sennosides [Senna] 17.2 mg PO DAILY 09/20/16 [History] Simethicone [Gas-X] 120 mg PO BID PRN 09/20/16 [History] Insulin ASPART [Novolog Flexpen] 0 - 12 units SQ TID MDD PER SLIDING SCALE 11/13 [History] Folic Acid 1 mg PO DAILY #30 tablet 12/03/16 [Rx] Ipratropium/Albuterol Neb [Duoneb] 3 ml IH [id number] PRN 30 Days 12/03/16 [Rx] Ferrous Gluconate 324 mg PO TID 01/12/17 [History] Warfarin [Coumadin] 2 mg PO HS 01/12/17 [History] Amino Acids/Protein Hydrolys [Pro-Stat Awc Liquid] 30 ml PO BID 01/28/17 [ History] Ipratropium/Albuterol Neb [Duoneb] 3 ml IH Q6HR PRN 01/28/17 [History] Mupirocin [Bactroban Oint] 1 appl TP MOWEFR 01/28/17 [History] Oxycodone HCl 10 mg PO Q6H PRN 01/28/17 [History] Allergies ceftriaxone [From Rocephin] Allergy (Severe, Verified 01/18/17 06:24) Anaphylaxis Occured at [facility]. Required ICU transfer, intubation, and mechanical ventilation. ciprofloxacin [From Cipro] Allergy (Mild, Verified 01/18/17 06:24) Rash sulfamethoxazole [From Bactrim] Allergy (Verified 01/18/17 06:24) See Comments trimethoprim [From Bactrim] Allergy (Verified 01/18/17 06:24) See Comments rozeta Allergy (Uncoded 01/18/17 06:24) See Comments All Systems PM: A 10-system review of systems was performed and is negative for pertinent findings except as documented above in the HPI. - Constitutional Vitals: Temp Pulse Resp BP Pulse Ox 97.6 F 76 14 98/55 95 01/28/17 09:46 01/28/17 09:46 01/28/17 09:46 01/28/17 09:46 01/28/17 09:46 General appearance: Present: no acute distress (Asleep, arousable, appears comfortable on BiPAP) - Head Additional comments: Bilateral periorbital ecchymoses - Neck Neck exam general surgery: Present: supple, trachea midline. Absent: lymphadenopathy - Respiratory Respiratory exam: Present: CTAB. Absent: accessory muscle use, rales, rhonchi, wheezes - Cardiovascular Cardiovascular exam: Present: irregular rhythm, +S1, +S2. Absent: diastolic murmur, gallop, rubs, systolic murmur - GI/Abdominal GI/Abdominal exam: Present: normal bowel sounds, soft, no peritoneal signs. Absent: distended, tenderness - Extremities Exam Extremities exam: Present: warm, radial pulses palpable and symetrical. Absent : calf tenderness, cyanotic, pedal edema - Skin Skin exam: Present: dry, intact Internal Med - H&P Results - Labs CBC & Chem 7: 01/28/17 08:05 01/28/17 08:05 - EKG Data -: EKG Interpreted by Myself (A. fib 81 bpm, low voltage QRS, nonspecific ST and T wave changes.)
[2017-01-28] MEDS: Lactulose Oral Soln 20 GM/30 ML UDC PO SCH ×2 (18:06→21:20)
--- NOTE | 2017-01-28 18:08 | Electrocardiograph Report ---
[place] [id number] Test Date: 2017-01-28 Pat Name: Jaimee Rodriguez Department: 105 Room: 2A26 Gender: F Statistics Manager: VALENTINA : 1945 Requested By: Sudhir Lancaster Order Number: [id number] Reading MD: Man Larios MD Measurements Intervals [place] Rate: 81 P: SC: 0 QRS: 13 QRSD: 87 T: 74 QT: 346 QTc: 384 Interpretive Statements ATRIAL FIBRILLATION LOW QRS VOLTAGE IN EXTREMITY LEADS BASELINE ARTIFACT Electronically Signed On 01-28-2017 18:06:24 EDT by Man Larios MD
[2017-01-28] MEDS: Sucralfate 1 GM TABLET PO SCH (21:20)
[2017-01-28] MEDS: Gabapentin 100 MG CAPSULE PO SCH (21:21)
[2017-01-28] MEDS: *HR* Warfarin 1 MG TABLET PO SCH (21:21)
[2017-01-28] MEDS: *HR* OxyCODONE Immed Rel 5 MG TABLET PO PRN (21:31)
[2017-01-29] MEDS ORDERED: 0.9 % Sodium Chloride 250 ML IVC PRN (08:01)
--- NOTE | 2017-01-29 08:01 | Nephrology Progress Note ---
Date of Encounter: 01/29/17 Time of Encounter: 08:00 - Assessment and Plan (1) End-stage renal disease Current Visit: Yes Status: Acute Patient has evidence of volume overload. She will undergo additional ultrafiltration today and routine dialysis again tomorrow. (2) Diastolic CHF, acute on chronic Current Visit: Yes Status: Acute (3) Atrial fibrillation Current Visit: No Status: Chronic Qualifiers: Atrial fibrillation type: chronic Qualified Code(s): I48.2 - Chronic atrial fibrillation Subjective Interval history: Patient reports she is less short of breath. Her hip pain appears to be controlled. Mental status is at baseline. She is exhibiting some mild clonus. She does continue to have some lower extremity swelling. Objective - Vital Signs Vital signs: Vital Signs Temp Pulse Resp BP Pulse Ox 01/29/17 07:39 98.6 F 80 18 117/56 80 01/29/17 03:54 99.1 F 74 16 106/57 94 01/28/17 22:39 98.1 F 78 16 101/54 92 01/28/17 19:45 16 125/57 97 01/28/17 19:15 97.6 F 16 125/57 01/28/17 19:05 110/58 01/28/17 18:50 107/51 01/28/17 18:35 102/54 01/28/17 18:20 104/45 01/28/17 18:05 106/50 01/28/17 17:50 94/52 01/28/17 17:35 91/40 01/28/17 17:20 109/50 01/28/17 17:05 102/51 01/28/17 16:50 107/50 01/28/17 16:35 105/54 01/28/17 16:20 104/52 01/28/17 16:05 97.6 F 16 102/50 Intake and Output 01/28/17 01/29/17 01/29/17 23:59 07:59 15:59 Intake Total 600 / 600 Output Total 3600 / 3600 Balance -3000 / -3000 Intake: Oral 0 / 0 Intake, Rinseback and 600 / 600 Flushes Output: Urine 0 / 0 Total Dialysis (HD) 3600 / 3600 Output Other: Meal Dinner Percent of Meal Consumed 50% Weight 89.3 kg Blood Glucose* 152 173 Hemodialysis Net Fluid 3000 Removed (mL) Patient Weight 01/29/17 23:59 Weight 89.3 kg - General Appearance Exam: Patient is alert and oriented. She is in no acute distress. An oxygen mask is in place. Lungs diminished breath sounds. Heart irregular rate and rhythm. Abdomen is benign. There is 1-2+ lower extremity swelling. There is a tunnel dialysis catheter in the left chest and an immature AV fistula in the left upper extremity. - Lab 01/28/17 08:05 01/28/17 08:05 Most recent lab results Calcium 9.4 mg/dL (8.6-10.8) 01/28/17 08:05 Consult Discharge Plan - Plan Referrals: Henrry Mccullough MD [Primary Care Provider] -
[2017-01-29 08:10] LABS: Basophils % 0.3 %
[2017-01-29 08:11] LABS: Eosinophils # 0.1 K/mcL (0.0-0.6); Eosinophils % 0.4 %; Hemoglobin 9.5 g/dL (11.5-15.4); Immature Granulocytes % 1.2 % (0-4); Lymphocytes # 0.8 K/mcL (0.6-4.6); Lymphocytes % 6.8 %; Mean Corpuscular HGB Conc 27.9 g/dL (31.6-35.5); Mean Corpuscular Hemoglobin 23.7 pg (28.0-33.3); Mean Corpuscular Volume 84.8 fL (83.0-100.0); Mean Platelet Volume 8.6 fL (9.4-12.4); Monocytes # 1.4 K/mcL (0.0-1.3); Monocytes % 11.7 %; Neutrophils # 9.5 K/mcL (1.6-8.9); Nucleated Red Blood Cells 0.5 /100 WBC (0); Platelet Count 185 K/mcL (140-400); Red Blood Count 4.01 M/mcL (3.82-4.97); Segmented Neutrophils % 79.6 %
[2017-01-29] MEDS: Insulin LISPRO 300 UNITS/3 ML VIAL SQ SCH ×4 (08:15→21:29)
[2017-01-29] MEDS: Lactulose Oral Soln 20 GM/30 ML UDC PO SCH ×4 (08:17→21:28)
[2017-01-29] MEDS: Sennosides 8.6 MG TABLET PO SCH (08:18)
[2017-01-29] MEDS: Sucralfate 1 GM TABLET PO SCH ×2 (08:18→17:16)
[2017-01-29] MEDS: Gabapentin 100 MG CAPSULE PO SCH ×2 (08:18→21:27)
[2017-01-29] MEDS: Aspirin 81 MG TAB.CHEW PO SCH (08:18)
[2017-01-29 08:23] LABS: Calcium 8.9 mg/dL (8.6-10.8); Potassium 4.8 mEq/L (3.5-4.5)
[2017-01-29 08:39] LABS: Anisocytosis 1+ (Not Present); Hypochromasia Present (Not Present); Microcytosis Present (Not Present)
[2017-01-29 08:40] LABS: Platelet Estimate Normal (Normal)
[2017-01-29] MEDS ORDERED: (Fluticasone/Vilanterol [Breo Ellipta 100-25 Mcg Inh] IH SCH (09:00)
[2017-01-29 10:08] LABS: INR 2.4; Prothrombin Time 26.6 Seconds (9.4-12.1)
[2017-01-29] MEDS ORDERED: 0.9 % Sodium Chloride 2,000 ML ONE (10:10)
[2017-01-29] MEDS ORDERED: *HR* Heparin 10,000 UNIT/10 ML VIAL IV PRN (11:30)
--- NOTE | 2017-01-29 16:30 | Internal Med Progress Note ---
Date of Encounter: 01/29/17 Time of Encounter: 10:00 - Assessment and plan (1) Fluid overload Current Visit: Yes Status: Acute Assessment and plan: Improved after hemodialysis. Total dialysis output 3600 ml. Will continue to monitor patient and patient will have another dialysis tomorrow. Qualifiers: Hypervolemia type: other Qualified Code(s): E87.79 - Other fluid overload (2) End stage renal disease Current Visit: Yes Status: Acute Assessment and plan: On hemodialysis. Schedule is Saturday/Saturday/Saturday (3) DVT prophylaxis Current Visit: No Status: Acute Assessment and plan: Pt is on Coumadin. 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 On Coumadin, INR therapeutic Qualifiers: Atrial fibrillation type: chronic Qualified Code(s): I48.2 - Chronic atrial fibrillation (6) Acute on chronic diastolic CHF (congestive heart failure) Current Visit: No Status: Acute Assessment and plan: Due to fluid overload. Improved after hemodialysis. Continue scheduled hemodialysis. (7) LITO on CPAP Current Visit: No Status: Chronic Assessment and plan: Continue BiPAP during night - Time Spent With Patient 25 - 35 minutes - Subjective Interval history: Patient is a 71-year-old female admitted for fluid overload and CHF exacerbation. Her past medical history is significant for end-stage renal disease on hemodialysis, diabetes, A. fib on Coumadin. Patient had hemodialysis yesterday. Today I saw and examined the patient, her shortness of breath has significantly improved after dialysis. Vitals are stable. We will continue dialysis tomorrow and plan to discharge back to custodial after dialysis. - Constitutional Vitals: Temp Pulse Resp BP Pulse Ox 98.6 F 66 20 105/74 90 01/29/17 15:38 01/29/17 15:38 01/29/17 15:38 01/29/17 15:38 01/29/17 15:38 General appearance: Present: A&O X 2, no acute distress (Asleep, arousable, appears comfortable on BiPAP) - Head Head exam: Present: atraumatic, normocephalic - Eye Eye exam: Present: PERRL, conjuntiva pink, sclera anicteric Pupils: Present: PERRL - Neck Neck exam general surgery: Present: supple, trachea midline. Absent: lymphadenopathy - Respiratory Respiratory exam: Present: CTAB. Absent: accessory muscle use, rales, rhonchi, wheezes - Cardiovascular Cardiovascular exam: Present: RRR, +S1, +S2. Absent: diastolic murmur, gallop, rubs, systolic murmur - GI/Abdominal GI/Abdominal exam: Present: normal bowel sounds, soft, no peritoneal signs. Absent: distended, tenderness - Extremities Exam Extremities exam: Present: pedal edema (Mild pedal edema bilaterally), warm, radial pulses palpable and symetrical. Absent: calf tenderness, cyanotic - Neurological Exam Neurological exam: Present: CN II-XII intact, oriented X3, no focal deficits. Absent: pronater drift, facial droop, speech deficit - Skin Skin exam: Present: dry, intact Internal Medicine: Result - Labs CBC & Chem 7: 01/29/17 07:56 01/29/17 07:56 Labs: Short CBC 01/29/17 Range/Units 07:56 WBC 11.9 H (4.3-11.1) K/mcL Hgb 9.5 L (11.5-15.4) g/dL Hct 34.0 L (35.3-44.9) % Plt Count 185 (140-400) K/mcL Neutrophils # 9.5 H (1.6-8.9) K/mcL BMP 01/29/17 07:56 Sodium 133 L Potassium 4.8 H Chloride 98 Carbon Dioxide 29 BUN 25 H D Creatinine 3.41 H Glucose 188 H Calcium 8.9 Cardiac Enzymes 01/28/17 Range/Units 19:01 Troponin I 0.04 H* (0-0.03) ng/mL - ABG Interpretation ABG results: PT/INR, D-dimer PT 26.6 Seconds (9.4-12.1) H 01/29/17 09:47 Consult Discharge Plan - Plan Referrals: Henrry Mccullough MD [Primary Care Provider] - 02/06/17 5:00 pm (Please follow up as schedule...)
[2017-01-29] MEDS: *HR* Warfarin 1 MG TABLET PO SCH (17:20)
[2017-01-29] MEDS: *HR* OxyCODONE Immed Rel 5 MG TABLET PO PRN (17:24)
[2017-01-29] MEDS ORDERED: Warfarin perPT PO PRN (18:00)
[2017-01-29] MEDS: Budesonide/Formoterol 160/4.5 MDI IH SCH (20:12)
[2017-01-30] MEDS ORDERED: 0.9 % Sodium Chloride 250 ML IVC PRN (08:18)
--- NOTE | 2017-01-30 08:18 | Nephrology Progress Note ---
Date of Encounter: 01/30/17 Time of Encounter: 08:16 - Assessment and Plan (1) End-stage renal disease Current Visit: Yes Status: Acute The patient still has evidence of volume overload. She will undergo dialysis today with fluid removal as tolerated. (2) Diastolic CHF, acute on chronic Current Visit: Yes Status: Acute (3) Atrial fibrillation Current Visit: No Status: Chronic Qualifiers: Atrial fibrillation type: chronic Qualified Code(s): I48.2 - Chronic atrial fibrillation Subjective Interval history: The patient denies any new complaints. She denies any shortness of breath. The patient underwent additional ultrafiltration yesterday for volume removal. She is scheduled for her usual dialysis today. She still has some lower extremity swelling on exam. Objective - Vital Signs Vital signs: Vital Signs Temp Pulse Resp BP Pulse Ox 01/30/17 08:02 98.0 F 70 16 113/66 94 01/30/17 03:59 98.2 F 66 16 115/66 95 01/30/17 00:22 98.4 F 76 16 118/55 96 01/29/17 20:13 14 98 01/29/17 19:28 98.5 F 70 18 104/55 92 01/29/17 17:26 94 01/29/17 15:38 98.6 F 66 20 105/74 90 01/29/17 11:40 97.4 F L 66 18 106/82 100 01/29/17 11:25 98.6 F 22 101/48 01/29/17 11:15 104/65 01/29/17 11:00 103/60 01/29/17 10:45 113/55 01/29/17 10:30 114/62 01/29/17 10:15 123/62 01/29/17 10:00 133/70 01/29/17 09:45 117/69 01/29/17 09:30 111/73 01/29/17 09:15 98.6 F 26 128/71 01/29/17 08:40 98 Intake and Output 01/29/17 01/30/17 01/30/17 23:59 07:59 15:59 Other: Weight 88.2 kg Blood Glucose* 183 220 Patient Weight 01/30/17 23:59 Weight 88.2 kg - General Appearance Exam: Patient is alert and oriented. She is in no acute distress. Lungs diminished breath sounds. Heart irregular rate and rhythm. Abdomen is benign. There is 2 + lower extremity swelling. There is a tunnel dialysis catheter in the left chest and an immature AV fistula in the left upper extremity. - Lab 01/29/17 07:56 01/29/17 07:56 Most recent lab results Calcium 8.9 mg/dL (8.6-10.8) 01/29/17 07:56 Consult Discharge Plan - Plan Referrals: Henrry Mccullough MD [Primary Care Provider] - 02/06/17 5:00 pm (Please follow up as schedule...)
[2017-01-30 08:44] LABS: INR 2.3; Prothrombin Time 25.5 Seconds (9.4-12.1)
[2017-01-30] MEDS: Lactulose Oral Soln 20 GM/30 ML UDC PO SCH ×4 (08:46→20:50)
[2017-01-30] MEDS: Sucralfate 1 GM TABLET PO SCH ×2 (08:47→20:17)
[2017-01-30] MEDS: Aspirin 81 MG TAB.CHEW PO SCH (08:48)
[2017-01-30] MEDS: Gabapentin 100 MG CAPSULE PO SCH ×2 (08:48→20:17)
[2017-01-30] MEDS: Sennosides 8.6 MG TABLET PO SCH (08:48)
[2017-01-30] MEDS: Insulin LISPRO 300 UNITS/3 ML VIAL SQ SCH ×4 (08:50→20:41)
[2017-01-30 08:52] LABS: Albumin 2.8 g/dL (3.5-5.0); Albumin/Globulin Ratio 0.8 (1.1-2.2); Bilirubin,Total 0.6 mg/dL (0.2-1.2); Calcium 9.3 mg/dL (8.6-10.8); Globulin 3.6 g/dL (2.4-3.5); Potassium 5.2 mEq/L (3.5-4.5); Total Protein 6.4 g/dL (6.0-8.3)
[2017-01-30 09:14] LABS: Basophils % 0.4 %; Hemoglobin 9.6 g/dL (11.5-15.4)
[2017-01-30 09:15] LABS: Eosinophils % 0.3 %; Hematocrit 34.9 % (35.3-44.9); Lymphocytes # 0.9 K/mcL (0.6-4.6); Lymphocytes % 8.5 %; Mean Corpuscular HGB Conc 27.5 g/dL (31.6-35.5); Mean Corpuscular Hemoglobin 23.6 pg (28.0-33.3); Mean Corpuscular Volume 85.7 fL (83.0-100.0); Mean Platelet Volume 9.5 fL (9.4-12.4); Monocytes # 1.3 K/mcL (0.0-1.3); Monocytes % 11.5 %; Neutrophils # 8.5 K/mcL (1.6-8.9); Nucleated Red Blood Cells 0.5 /100 WBC (0); Platelet Count 220 K/mcL (140-400); Red Blood Count 4.07 M/mcL (3.82-4.97); Red Cell Distribution Width 21.1 % (11.5-14.5); Segmented Neutrophils % 78.3 %
[2017-01-30] MEDS: Budesonide/Formoterol 160/4.5 MDI IH SCH ×2 (09:26→20:05)
[2017-01-30 10:04] LABS: Anisocytosis 2+ (Not Present)
[2017-01-30 10:05] LABS: Basophilic Stippling 2+ (Not Present); Polychromasia 2+ (Not Present)
[2017-01-30 10:06] LABS: Platelet Estimate Normal (Normal)
[2017-01-30] MEDS: *HR* OxyCODONE Immed Rel 5 MG TABLET PO PRN ×2 (14:17→20:33)
--- NOTE | 2017-01-30 17:04 | Internal Med Progress Note ---
Date of Encounter: 01/30/17 Time of Encounter: 10:00 - Assessment and plan (1) Fluid overload Current Visit: Yes Status: Acute Assessment and plan: Improved after hemodialysis. Total dialysis output 3600 ml. Will continue to monitor patient and patient will have another dialysis today. Qualifiers: Hypervolemia type: other Qualified Code(s): E87.79 - Other fluid overload (2) End stage renal disease Current Visit: Yes Status: Acute Assessment and plan: On hemodialysis. Schedule is Saturday/Saturday/Saturday (3) DVT prophylaxis Current Visit: No Status: Acute Assessment and plan: Pt is on Coumadin. 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 On Coumadin, INR therapeutic Qualifiers: Atrial fibrillation type: chronic Qualified Code(s): I48.2 - Chronic atrial fibrillation (6) Acute on chronic diastolic CHF (congestive heart failure) Current Visit: No Status: Acute Assessment and plan: Due to fluid overload. Improved after hemodialysis. Continue scheduled hemodialysis. (7) LITO on CPAP Current Visit: No Status: Chronic Assessment and plan: Continue BiPAP during night - Time Spent With Patient 25 - 35 minutes - Subjective Interval history: Patient is a 71-year-old female admitted for fluid overload and CHF exacerbation. Her past medical history is significant for end-stage renal disease on hemodialysis, diabetes, A. fib on Coumadin. Patient had hemodialysis for last two days. Today I saw and examined the patient, her shortness of breath has significantly improved after dialysis. But still need high level O2 to maintain SpO2. Vitals are stable. We will continue dialysis today and re-evaluate after HD. - Constitutional Vitals: Temp Pulse Resp BP Pulse Ox 98.6 F 65 24 98/48 93 01/30/17 15:45 01/30/17 11:47 01/30/17 15:45 01/30/17 16:45 01/30/17 11:47 General appearance: Present: A&O X 2, no acute distress (Asleep, arousable, appears comfortable on BiPAP) - Head Head exam: Present: atraumatic, normocephalic - Eye Eye exam: Present: PERRL, conjuntiva pink, sclera anicteric Pupils: Present: PERRL - Neck Neck exam general surgery: Present: supple, trachea midline. Absent: lymphadenopathy - Respiratory Respiratory exam: Present: CTAB. Absent: accessory muscle use, rales, rhonchi, wheezes - Cardiovascular Cardiovascular exam: Present: RRR, +S1, +S2. Absent: diastolic murmur, gallop, rubs, systolic murmur - GI/Abdominal GI/Abdominal exam: Present: normal bowel sounds, soft, no peritoneal signs. Absent: distended, tenderness - Extremities Exam Extremities exam: Present: pedal edema (B/L Up to knees), warm, radial pulses palpable and symetrical. Absent: calf tenderness, cyanotic - Neurological Exam Neurological exam: Present: CN II-XII intact, oriented X3, no focal deficits. Absent: pronater drift, facial droop, speech deficit - Skin Skin exam: Present: dry, intact Internal Medicine: Result - Labs CBC & Chem 7: 01/30/17 08:29 01/30/17 08:29 Labs: Short CBC 01/30/17 Range/Units 08:29 WBC 10.9 (4.3-11.1) K/mcL Hgb 9.6 L (11.5-15.4) g/dL Hct 34.9 L (35.3-44.9) % Plt Count 220 (140-400) K/mcL Neutrophils # 8.5 (1.6-8.9) K/mcL BMP 01/30/17 08:29 Sodium 132 L Potassium 5.2 H Chloride 97 L Carbon Dioxide 25 BUN 31 H Creatinine 4.44 H Glucose 202 H Calcium 9.3 Liver Function 01/30/17 Range/Units 08:29 Total Bilirubin 0.6 (0.2-1.2) mg/dL AST 9 (5-34) Units/L ALT 8 (0-55) Units/L Alkaline Phosphatase 146 H (38-126) Units/L Albumin 2.8 L (3.5-5.0) g/dL - ABG Interpretation ABG results: PT/INR, D-dimer PT 25.5 Seconds (9.4-12.1) H 01/30/17 08:29 Consult Discharge Plan - Plan Referrals: Henrry Mccullough MD [Primary Care Provider] - 02/06/17 5:00 pm (Please follow up as schedule...)
[2017-01-30] MEDS: *HR* Warfarin 1 MG TABLET PO SCH (20:18)
[2017-01-31 06:15] LABS: INR 2.7; Prothrombin Time 29.6 Seconds (9.4-12.1)
[2017-01-31 06:17] LABS: Hemoglobin 9.1 g/dL (11.5-15.4)
[2017-01-31 06:19] LABS: Basophils % 0.3 %; Eosinophils # 0.1 K/mcL (0.0-0.6); Eosinophils % 0.7 %; Hematocrit 33.3 % (35.3-44.9); Immature Granulocytes % 1.1 % (0-4); Lymphocytes # 0.7 K/mcL (0.6-4.6); Lymphocytes % 7.3 %; Mean Corpuscular HGB Conc 27.3 g/dL (31.6-35.5); Mean Corpuscular Hemoglobin 23.4 pg (28.0-33.3); Mean Corpuscular Volume 85.6 fL (83.0-100.0); Mean Platelet Volume 9.1 fL (9.4-12.4); Monocytes # 1.1 K/mcL (0.0-1.3); Monocytes % 11.2 %; Neutrophils # 7.7 K/mcL (1.6-8.9); Nucleated Red Blood Cells 0.4 /100 WBC (0); Platelet Count 207 K/mcL (140-400); Red Blood Count 3.89 M/mcL (3.82-4.97); Red Cell Distribution Width 21.2 % (11.5-14.5); Segmented Neutrophils % 79.4 %
[2017-01-31 06:33] LABS: Potassium 4.6 mEq/L (3.5-4.5)
[2017-01-31 06:46] LABS: Anisocytosis 1+ (Not Present)
[2017-01-31 06:47] LABS: Basophilic Stippling 1+ (Not Present); Hypochromasia Present (Not Present); Platelet Estimate Normal (Normal)
[2017-01-31] MEDS: Sennosides 8.6 MG TABLET PO SCH (08:26)
[2017-01-31] MEDS: Gabapentin 100 MG CAPSULE PO SCH (08:27)
[2017-01-31] MEDS: Sucralfate 1 GM TABLET PO SCH (08:27)
[2017-01-31] MEDS: Lactulose Oral Soln 20 GM/30 ML UDC PO SCH (08:28)
[2017-01-31] MEDS: Insulin LISPRO 300 UNITS/3 ML VIAL SQ SCH (08:28)
[2017-01-31] MEDS: Aspirin 81 MG TAB.CHEW PO SCH (08:33)
--- NOTE | 2017-01-31 09:27 | Nephrology Progress Note ---
Date of Encounter: 01/31/17 Time of Encounter: 09:00 - Assessment and Plan (1) End-stage renal disease Current Visit: No Status: Acute Will do UF today, orders given. Then can be discharged to nursing facility. Will do HD tomorrow at [place] if discharged. Subjective Interval history: Sitting on edge of bed. States breathing easier, wants to go to nursing facility. Noted somewhat tachypneic. Objective - Vital Signs Vital signs: Vital Signs Temp Pulse Resp BP Pulse Ox 01/31/17 07:11 97.5 F L 67 18 128/74 99 01/31/17 05:35 98.2 F 77 18 180/84 92 01/31/17 00:20 21 95 01/30/17 23:55 98.3 F 72 18 176/80 92 01/30/17 20:08 18 93 01/30/17 19:58 97.9 F 76 17 181/82 92 01/30/17 18:55 98.4 F 20 114/40 01/30/17 18:45 94/60 01/30/17 18:30 103/56 01/30/17 18:15 102/38 01/30/17 18:00 95/45 01/30/17 17:45 106/40 01/30/17 17:30 95/53 01/30/17 17:15 96/45 01/30/17 17:00 117/48 01/30/17 16:45 98/48 01/30/17 16:30 91/46 01/30/17 16:15 124/52 01/30/17 16:00 103/43 01/30/17 15:45 98.6 F 24 103/43 01/30/17 11:47 98.0 F 65 16 107/64 93 01/30/17 09:26 18 94 Intake and Output 01/30/17 01/31/17 01/31/17 23:59 07:59 15:59 Output Total 3600 / 3600 Balance -3600 / -3600 Output: Urine 0 / 0 Total Dialysis (HD) 3600 / 3600 Output Other: Weight 88.32 kg Blood Glucose* 235 176 Hemodialysis Net Fluid 3000 Removed (mL) Patient Weight 01/31/17 23:59 Weight 88.32 kg - General Appearance General appearance: Present: well-developed, well-nourished, appears started age , obese EENT: Present: mucous membranes moist Neck: Present: no JVD Additional Comments: harsh breath sounds Cardiology: Present: edema, regular rate, regular rhythm Additional Comments: 1+ pitting edema LE Gastrointestinal: Present: normoactive bowel sounds, no tenderness Integumentary: Present: warm and dry Neurologic: Present: alert and oriented x3 Psychiatric: Present: mood/affect appropriate, cooperative - Lab 01/31/17 04:29 01/31/17 04:29 Most recent lab results Calcium 9.0 mg/dL (8.6-10.8) 01/31/17 04:29 Consult Discharge Plan - Plan Referrals: Henrry Mccullough MD [Primary Care Provider] - 02/06/17 5:00 pm (Please follow up as schedule...)
[2017-01-31] MEDS ORDERED: *HR* Heparin 10,000 UNIT/10 ML VIAL IV PRN (09:35)
[2017-01-31] MEDS: Budesonide/Formoterol 160/4.5 MDI IH SCH (09:35)
[2017-01-31] MEDS ORDERED: 0.9 % Sodium Chloride 250 ML IVC PRN (09:35)
[2017-01-31] MEDS ORDERED: 0.9 % Sodium Chloride 1,000 ML PRIME SCH (09:45)
[2017-01-31] MEDS ORDERED: 0.9 % Sodium Chloride 2,000 ML ONE (10:23)
--- NOTE | 2017-01-31 13:00 | Discharge Summary ---
Date of Encounter: 01/31/17 Time of Encounter: 10:00 - Discharge Diagnosis (1) Fluid overload Priority: Primary Status: Acute Qualifiers: Hypervolemia type: other Qualified Code(s): E87.79 - Other fluid overload (2) End stage renal disease Priority: Secondary Status: Acute (3) DVT prophylaxis Priority: Secondary Status: Acute (4) DM (diabetes mellitus), type 2 Priority: Secondary Status: Chronic 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 mellitus intermediate manager insulin use: with intermediate manager use Chronic kidney disease stage: on chronic dialysis Qualified Code(s): E11.22 - Type 2 diabetes mellitus with diabetic chronic kidney disease; N18.6 - End stage renal disease; Z79.4 - terminologist (current) use of insulin; Z99.2 - Dependence on renal dialysis (5) Atrial fibrillation Priority: Secondary Status: Chronic Qualifiers: Atrial fibrillation type: chronic Qualified Code(s): I48.2 - Chronic atrial fibrillation (6) Acute on chronic diastolic CHF (congestive heart failure) Priority: Secondary Status: Acute (7) LITO on CPAP Priority: Secondary Status: Chronic - Discharge Medications Home Medications: Metoprolol [Lopressor] 12.5 mg PO BID 08/14/15 [History] Sertraline [Zoloft] 150 mg PO DAILY 08/14/15 [History] Sucralfate [Carafate] 2 gm PO BID 08/14/15 [History] glipiZIDE [Glucotrol] 10 mg PO BID 08/14/15 [History] Lactulose 10 gm PO QID 06/24/16 [History] Aspirin 81 mg PO DAILY 07/11/16 [History] Fluticasone/Vilanterol [Breo Ellipta 100-25 Mcg INH] 1 puff IH DAILY 07/11/16 [ History] Pantoprazole Sodium [Protonix] 40 mg PO DAILY 07/11/16 [History] Diltiazem [Cardizem] 30 mg PO TID 09/20/16 [History] Gabapentin [Neurontin] 100 mg PO BID 09/20/16 [History] Sennosides [Senna] 17.2 mg PO DAILY 09/20/16 [History] Simethicone [Gas-X] 120 mg PO BID PRN 09/20/16 [History] Insulin ASPART [Novolog Flexpen] 0 - 12 units SQ TID MDD PER SLIDING SCALE 11/13 [History] Folic Acid 1 mg PO DAILY #30 tablet 12/03/16 [Rx] Ipratropium/Albuterol Neb [Duoneb] 3 ml IH [id number] PRN 30 Days 12/03/16 [Rx] Ferrous Gluconate 324 mg PO TID 01/12/17 [History] Warfarin [Coumadin] 2 mg PO HS 01/12/17 [History] Amino Acids/Protein Hydrolys [Pro-Stat Awc Liquid] 30 ml PO BID 01/28/17 [ History] Ipratropium/Albuterol Neb [Duoneb] 3 ml IH Q6HR PRN 01/28/17 [History] Mupirocin [Bactroban Oint] 1 appl TP [id number] 01/28/17 [History] Oxycodone HCl 10 mg PO Q6H PRN 01/28/17 [History] Allergies/Adverse Reactions: Allergies ceftriaxone [From Rocephin] Allergy (Severe, Verified 01/18/17 06:24) Anaphylaxis Occured at [facility]. Required ICU transfer, intubation, and mechanical ventilation. ciprofloxacin [From Cipro] Allergy (Mild, Verified 01/18/17 06:24) Rash sulfamethoxazole [From Bactrim] Allergy (Verified 01/18/17 06:24) See Comments trimethoprim [From Bactrim] Allergy (Verified 01/18/17 06:24) See Comments rozeta Allergy (Uncoded 01/18/17 06:24) See Comments Date of admission: 01/28/17 13:29 Primary care physician: Henrry Mccullough MD Consults: 01/29/17 08:15 Consult to Dialysis [CONS] ONCE 01/30/17 08:30 Consult to Dialysis [CONS] ONCE 01/31/17 09:45 Consult to Dialysis [CONS] ONCE Discharging clinician: Brain Batres Anticipated date of discharge: 01/31/17 - Patient Status Disposition: Transfer SNF Condition: Fair Overall status at discharge: patient is back to baseline - Discharge Instructions Follow Up With: Henrry Mccullough MD [Primary Care Provider] - 02/06/17 5:00 pm (Please follow up as schedule...) - Diet and Activity Activity: as per physical therapy Diet: diabetic diet, other (Renal diet) Interval History: Ms. Rodriguez is a 71 year old female with multiple medical comorbidities including diastolic heart failure and end-stage renal disease on hemodialysis presented to the hospital for shortness of breath. The history is limited by the patient's somnolence and respiratory failure, currently she is on BiPAP for labored breathing. She reports that she had worsening shortness of breath for 1 day, it became severe at rest. Denies any associated chest pain cough and fever. No aggravating or alleviating factors. She gets hemodialysis on Saturday, last hemodialysis was a scheduled on Saturday. In the emergency department she appeared to have labored breathing and she was placed on BiPAP. Her chest x-ray revealed pulmonary congestion. Hospital course: Ms. Rodriguez is a 71 year old female admitted for shortness of breath and was considered as fluid overload. Patient has end-stage renal disease on hemodialysis. Nephrology consult was called and emergency dialysis has been done. After treatment, patient's shortness of breath has improved. She said that she is a get back to her baseline right now. Patient will finish UF today per nephrology. Patient will be discharged back to [facility] after UF. I saw and examined the patient today. She is awake alert, oriented 3. Mild shortness of breath she said it is at her baseline. Oxygen saturation 95% on 3- 4 L nasal cannula, which is patient used at [facility]. Vitals are stable. Pedal edema is still there but has improved. Patient will discharge back to ECF for further management. Continue hemodialysis in [facility]. - Time Spent with Patient Total time spent providing and/or coordinating discharge services:25min Less than 30 minutes - Constitutional Vitals: Temp Pulse Resp BP Pulse Ox 98.1 F 67 20 113/37 95 01/31/17 12:05 01/31/17 10:51 01/31/17 12:05 01/31/17 12:35 01/31/17 10:51 General appearance: Present: A&O X 3, no acute distress (Asleep, arousable, appears comfortable on BiPAP) - Head Head exam: Present: atraumatic, normocephalic - Eye Eye exam: Present: PERRL, conjuntiva pink, sclera anicteric Pupils: Present: PERRL - Neck Neck exam general surgery: Present: supple, trachea midline. Absent: lymphadenopathy - Respiratory Respiratory exam: Present: CTAB. Absent: accessory muscle use, rales, rhonchi, wheezes - Cardiovascular Cardiovascular exam: Present: RRR, +S1, +S2. Absent: diastolic murmur, gallop, rubs, systolic murmur - GI/Abdominal GI/Abdominal exam: Present: normal bowel sounds, soft, no peritoneal signs. Absent: distended, tenderness - Extremities Exam Extremities exam: Present: pedal edema (Mild pedal edema bilaterally), warm, radial pulses palpable and symetrical. Absent: calf tenderness, cyanotic - Neurological Exam Neurological exam: Present: CN II-XII intact, oriented X3, no focal deficits. Absent: pronater drift, facial droop, speech deficit - Skin Skin exam: Present: dry, intact
--- NOTE | 2017-01-31 13:11 | Physician Discharge Referral ---
[facility] Referral Info Transfer To: ECF Provider in Charge after Transfer: Other - Diagnosis (1) Fluid overload Status: Acute (2) End stage renal disease Status: Acute (3) DVT prophylaxis Status: Acute (4) DM (diabetes mellitus), type 2 Status: Chronic (5) Atrial fibrillation Status: Chronic (6) Acute on chronic diastolic CHF (congestive heart failure) Status: Acute (7) LITO on CPAP Status: Chronic - Transfer Medications Home Medications: Metoprolol [Lopressor] 12.5 mg PO BID 08/14/15 [History] Sertraline [Zoloft] 150 mg PO DAILY 08/14/15 [History] Sucralfate [Carafate] 2 gm PO BID 08/14/15 [History] glipiZIDE [Glucotrol] 10 mg PO BID 08/14/15 [History] Lactulose 10 gm PO QID 06/24/16 [History] Aspirin 81 mg PO DAILY 07/11/16 [History] Fluticasone/Vilanterol [Breo Ellipta 100-25 Mcg INH] 1 puff IH DAILY 07/11/16 [ History] Pantoprazole Sodium [Protonix] 40 mg PO DAILY 07/11/16 [History] Diltiazem [Cardizem] 30 mg PO TID 09/20/16 [History] Gabapentin [Neurontin] 100 mg PO BID 09/20/16 [History] Sennosides [Senna] 17.2 mg PO DAILY 09/20/16 [History] Simethicone [Gas-X] 120 mg PO BID PRN 09/20/16 [History] Insulin ASPART [Novolog Flexpen] 0 - 12 units SQ TID MDD PER SLIDING SCALE 11/13 [History] Folic Acid 1 mg PO DAILY #30 tablet 12/03/16 [Rx] Ipratropium/Albuterol Neb [Duoneb] 3 ml IH [id number] PRN 30 Days 12/03/16 [Rx] Ferrous Gluconate 324 mg PO TID 01/12/17 [History] Warfarin [Coumadin] 2 mg PO HS 01/12/17 [History] Amino Acids/Protein Hydrolys [Pro-Stat Awc Liquid] 30 ml PO BID 01/28/17 [ History] Ipratropium/Albuterol Neb [Duoneb] 3 ml IH Q6HR PRN 01/28/17 [History] Mupirocin [Bactroban Oint] 1 appl TP [id number] 01/28/17 [History] Oxycodone HCl 10 mg PO Q6H PRN 01/28/17 [History] Allergies/Adverse Reactions: Allergies ceftriaxone [From Rocephin] Allergy (Severe, Verified 01/18/17 06:24) Anaphylaxis Occured at [facility]. Required ICU transfer, intubation, and mechanical ventilation. ciprofloxacin [From Cipro] Allergy (Mild, Verified 01/18/17 06:24) Rash sulfamethoxazole [From Bactrim] Allergy (Verified 01/18/17 06:24) See Comments trimethoprim [From Bactrim] Allergy (Verified 01/18/17 06:24) See Comments rozeta Allergy (Uncoded 01/18/17 06:24) See Comments - Respiratory Orders Oxygen / L per min (3-4) Smoking Cessation: Smoking cessation has been advised. For more information, call the [employer] Tobacco Quit Line at 1-132-JLPY-NOW. - Advance Directives Code Status: Full Code - Rehabiliation Orders Rehab Potential: Fair Rehab Orders: Evaluation for Physical Therapy, Evaluation for Occupational Therapy - Diet Orders No Concentrated Sweets, Renal CERTIFICATION: I certify that the transfer of the above named patient to an Extended Care Facility is necessary for the continuing treatment of the diagnosis listed. The above information is true and accurate reflection of patient's current condition. Confidential - Redisclosure prohibited without a patient's written consent.
[2017-01-31 14:41] VITALS: BP 145/37
[2017-01-31] MEDS ORDERED: *HR* Warfarin 1 MG TABLET PO ONE (18:00)
== END 2017-01-31 15:15 | DRG 640 ==
LOC: EMEROO 06:25 → 2ANU 06:25 → SUATTDRO 13:29
PROVIDERS: ADMIT Internal Medicine; ATTEND Internal Medicine

== ENCOUNTER 2017-02-02 09:14 | Inpatient (IN) ==
[2017-02-02] MEDS ORDERED: *HR* Dextrose 50 % in Water (Syg) 50 ML SYRINGE IVP ONE ×2 (10:05→10:42)
--- NOTE | 2017-02-02 10:22 | Emergency Department Note ---
Disposition Clinical Impression: Frail elderly, CHF (congestive heart failure), Hip fracture, DM type 2 ( diabetes mellitus, type 2), End-stage renal disease on hemodialysis, Chronic atrial fibrillation, Morbid obesity with BMI of 45.0-49.9, adult, History of Coumadin therapy, Elevated INR, Cirrhosis of liver not due to alcohol Disposition: Still a Patient Condition: Fair Referrals: NO,PCP [Primary Care Provider] - Forms: Work/School Release, ED Satisfaction Letter Time of Disposition: 12:58 General Adult HPI - General Chief complaint: ED General Medical Stated complaint: Hypoglycemia Time Seen by Provider: 02/02/17 09:26 Source: patient, EMS Limitations: no limitations Nursing Notes Reviewed: Yes Vital Signs Reviewed: Yes - History of Present Illness HPI Narrative: Patient is a 71-year-old female with known history of insulin-dependent diabetes , and congestive heart failure, chronic kidney disease arrives via squad from her extended care facility with complaints of hypoglycemia. Nursing reports that squad had been told patient had received 2 doses of glucagon at the ECF, and possibly oral dextrose as well. Pain Scale: 10 - Related Data Home Medications Medication Instructions Recorded Confirmed Metoprolol [Lopressor] 12.5 mg PO BID 08/14/15 01/28/17 Sertraline [Zoloft] 150 mg PO DAILY 08/14/15 01/28/17 Sucralfate [Carafate] 2 gm PO BID 08/14/15 01/28/17 glipiZIDE [Glucotrol] 10 mg PO BID 08/14/15 01/28/17 Lactulose 10 gm PO QID 06/24/16 01/28/17 Aspirin 81 mg PO DAILY 07/11/16 01/28/17 Fluticasone/Vilanterol [Breo 1 puff IH DAILY 07/11/16 01/28/17 Ellipta 100-25 Mcg INH] Pantoprazole Sodium [Protonix] 40 mg PO DAILY 07/11/16 01/28/17 Diltiazem [Cardizem] 30 mg PO TID 09/20/16 01/28/17 Gabapentin [Neurontin] 100 mg PO BID 09/20/16 01/28/17 Sennosides [Senna] 17.2 mg PO DAILY 09/20/16 01/28/17 Simethicone [Gas-X] 120 mg PO BID PRN 09/20/16 01/28/17 Insulin ASPART [Novolog Flexpen] 0 - 12 units SQ TID MDD PER 11/13/16 01/28/17 SLIDING SCALE Ferrous Gluconate 324 mg PO TID 01/12/17 01/28/17 Warfarin [Coumadin] 2 mg PO HS 01/12/17 01/28/17 Amino Acids/Protein Hydrolys 30 ml PO BID 01/28/17 01/28/17 [Pro-Stat Awc Liquid] Ipratropium/Albuterol Neb [Duoneb] 3 ml IH Q6HR PRN 01/28/17 01/28/17 Mupirocin [Bactroban Oint] 1 appl TP [id number] 01/28/17 01/28/17 Oxycodone HCl 10 mg PO Q6H PRN 01/28/17 01/28/17 Previous Rx's Medication Instructions Recorded Folic Acid 1 mg PO DAILY #30 tablet 12/03/16 Ipratropium/Albuterol Neb [Duoneb] 3 ml IH [id number] PRN 30 Days 12/03/16 Allergies Allergy/AdvReac Type Severity Reaction Status Date / Time ceftriaxone [From Rocephin] Allergy Severe Anaphylaxis Verified 01/18/17 06:24 ciprofloxacin [From Cipro] Allergy Mild Rash Verified 01/18/17 06:24 sulfamethoxazole Allergy See Verified 01/18/17 06:24 [From Bactrim] Comments trimethoprim [From Bactrim] Allergy See Verified 01/18/17 06:24 Comments rozeta Allergy See Uncoded 01/18/17 06:24 Comments Limitations: ROS unobtainable due to patients medical condition Past Medical History - Past Medical History Medical history: Reports: arthritis, atrial fibrillation, cirrhosis, CHF, COPD, diabetes, GERD, hyperlipidemia, hypertension, renal disease, other Surgical history: Reports: cholecystectomy, hysterectomy Psychiatric history: Reports: anxiety, panic disorder BEEKEEPER history: Reports: bilateral tubal ligation - Social History Smoking Status: Never smoker Smokeless Tobacco Status: No Alcohol use: Reports: none Drug use: Reports: none Physical Exam - General Limitations: altered mental status General appearance: in no apparent distress - Head Head exam: normal inspection - ENT ENT exam: mucous membranes moist - Chest Chest inspection: Present: symmetric chest wall rise - Respiratory Respiratory exam: Absent: respiratory distress - Cardiovascular Cardiovascular exam: Present: bradycardia - Abdominal Exam Abdominal exam: Present: soft, Non-Tender - Extremities Exam Extremities exam: Present: normal capillary refill - Back Exam Back exam: Present: full ROM - Psychiatric Psychiatric exam: Present: normal affect - Skin Skin exam: Present: warm, dry, intact, other (eccymosis) Course Course Narrative: Patient is a 71-year-old female with known history of insulin-dependent diabetes , and congestive heart failure, chronic kidney disease arrives via squad from her extended care facility with complaints of hypoglycemia. Nursing reports that squad had been told patient had received 2 doses of glucagon at the ECF, and possibly oral dextrose as well. [facility] had not called the department for report. Patient seen and examined. Accu-Chek 87. She is able to follow commands. No extremity weakness. No facial asymmetry. Notable ecchymosis over her upper extremities and face, from a reported mechanical fall a few weeks ago. Workup initiated. - Reevaluation(s) Reevaluation #1: Per nursing who had contact with patient's ECF nurse, patient has been gradually or confused this week. Will initiate fluids, repeat Accu-Cheks. Workup still pending. Time: 10:42 Reevaluation #2: Due to shift change, care of this patient will be transferred over to shift provider Dr. Benjamin. Pt discussed with Dr. Benjamin, who will assume care and continue further evaluation and treatment of patient. Please see his further documentation for details. Time: 11:00 Vital Signs Temperature 97.8 F 02/02/17 09:25 Pulse Rate 53 02/02/17 09:25 Respiratory Rate 18 02/02/17 09:25 Blood Pressure 100/55 02/02/17 09:25 O2 Sat by Pulse Oximetry 100 02/02/17 09:25 Temperature 97.8 F 02/02/17 09:25 Pulse Rate 53 02/02/17 09:25 Respiratory Rate 18 02/02/17 09:25 Blood Pressure 100/55 02/02/17 09:25 O2 Sat by Pulse Oximetry 94 02/02/17 09:27 Oxygen Delivery Oxygen Delivery Nasal Cannula Medical Decision Making - Lab Data Result diagrams: 02/02/17 11:11 02/02/17 11:11 Lab Results 06/24/17 06/24/17 06/24/17 Range/Units 09:56 11:11 11:11 WBC 14.7 H D (4.3-11.1) K/mcL RBC 3.82 (3.82-4.97) M/mcL Hgb 8.9 L (11.5-15.4) g/dL Hct 31.5 L (35.3-44.9) % MCV 82.5 L (83.0-100.0) fL MCH 23.3 L (28.0-33.3) pg MCHC 28.3 L (31.6-35.5) g/dL RDW 21.2 H (11.5-14.5) % Plt Count 186 (140-400) K/mcL MPV 8.8 L (9.4-12.4) fL Immature Gran % 1.2 (0-4) % Seg Neutrophils % 88.4 % Lymphocytes % 3.7 % Monocytes % 6.3 % Eosinophils % 0.2 % Basophils % 0.2 % Neutrophils # 13.0 H (1.6-8.9) K/mcL Lymphocytes # 0.5 L (0.6-4.6) K/mcL Monocytes # 0.9 (0.0-1.3) K/mcL Eosinophils # 0.0 (0.0-0.6) K/mcL Basophils # 0.0 (0.0-0.2) K/mcL Nucleated RBCs/100 WBC 0.1 H (0) /100 WBC Platelet Estimate Normal (Normal) Polychromasia 1+ A (Not Present) Hypochromasia Present A (Not Present) Anisocytosis 1+ A (Not Present) PT (9.4-12.1) Seconds INR APTT (26.0-36.0) Seconds Sodium 133 L (136-145) mEq/L Potassium 3.8 (3.5-4.5) mEq/L Chloride 97 L (98-109) mEq/L Carbon Dioxide 27 (19-29) mEq/L BUN 21 H (7-20) mg/dL Creatinine 2.86 H (0.57-1.11) mg/dL Est GFR ( Amer) 20 L (> 60) Est GFR (Non-Af Amer) 16 L (> 60) BUN/Creatinine Ratio 7 (6-26) Glucose 136 H (70-99) mg/dL POC Glucose 87 (58-89) Calculated Osmolality 281 (280-300) Lactic Acid (0.5-2.2) mmol/L Calcium 8.6 (8.6-10.8) mg/dL Total Bilirubin (0.2-1.2) mg/dL Direct Bilirubin (0.0-0.5) mg/dL Indirect Bilirubin (0.0-1.2) mg/dL AST (5-34) Units/L ALT (0-55) Units/L Alkaline Phosphatase (38-126) Units/L Ammonia (18-72) mcmol/L Troponin I (0-0.03) ng/mL C-Reactive Protein (Less than 5) mg/L B-Natriuretic Peptide (0-100) pg/mL Serum Total Protein (6.0-8.3) g/dL Albumin (3.5-5.0) g/dL Globulin (2.4-3.5) g/dL Albumin/Globulin Ratio (1.1-2.2) Beta-Hydroxybutyric Acd (0.02-0.27) mmol/L Salicylates (15-30) mg/dL Acetaminophen (10-30) mcg/mL Ethyl Alcohol (0-10) mg/dL 02/02/17 02/02/17 02/02/17 Range/Units 11:11 11:11 11:11 WBC (4.3-11.1) K/mcL RBC (3.82-4.97) M/mcL Hgb (11.5-15.4) g/dL Hct (35.3-44.9) % MCV (83.0-100.0) fL MCH (28.0-33.3) pg MCHC (31.6-35.5) g/dL RDW (11.5-14.5) % Plt Count (140-400) K/mcL MPV (9.4-12.4) fL Immature Gran % (0-4) % Seg Neutrophils % % Lymphocytes % % Monocytes % % Eosinophils % % Basophils % % Neutrophils # (1.6-8.9) K/mcL Lymphocytes # (0.6-4.6) K/mcL Monocytes # (0.0-1.3) K/mcL Eosinophils # (0.0-0.6) K/mcL Basophils # (0.0-0.2) K/mcL Nucleated RBCs/100 WBC (0) /100 WBC Platelet Estimate (Normal) Polychromasia (Not Present) Hypochromasia (Not Present) Anisocytosis (Not Present) PT 42.5 H (9.4-12.1) Seconds INR 3.8 APTT 49.8 H (26.0-36.0) Seconds Sodium (136-145) mEq/L Potassium (3.5-4.5) mEq/L Chloride (98-109) mEq/L Carbon Dioxide (19-29) mEq/L BUN (7-20) mg/dL Creatinine (0.57-1.11) mg/dL Est GFR ( Amer) (> 60) Est GFR (Non-Af Amer) (> 60) BUN/Creatinine Ratio (6-26) Glucose (70-99) mg/dL POC Glucose (58-89) Calculated Osmolality (280-300) Lactic Acid (0.5-2.2) mmol/L Calcium (8.6-10.8) mg/dL Total Bilirubin 0.7 (0.2-1.2) mg/dL Direct Bilirubin 0.4 (0.0-0.5) mg/dL Indirect Bilirubin 0.3 (0.0-1.2) mg/dL AST 11 (5-34) Units/L ALT 7 (0-55) Units/L Alkaline Phosphatase 138 H (38-126) Units/L Ammonia 21 (18-72) mcmol/L Troponin I (0-0.03) ng/mL C-Reactive Protein (Less than 5) mg/L B-Natriuretic Peptide (0-100) pg/mL Serum Total Protein 5.8 L (6.0-8.3) g/dL Albumin 2.4 L (3.5-5.0) g/dL Globulin 3.4 (2.4-3.5) g/dL Albumin/Globulin Ratio 0.7 L (1.1-2.2) Beta-Hydroxybutyric Acd (0.02-0.27) mmol/L Salicylates (15-30) mg/dL Acetaminophen (10-30) mcg/mL Ethyl Alcohol < 10 (0-10) mg/dL 02/02/17 02/02/17 02/02/17 Range/Units 11:11 11:11 11:11 WBC (4.3-11.1) K/mcL RBC (3.82-4.97) M/mcL Hgb (11.5-15.4) g/dL Hct (35.3-44.9) % MCV (83.0-100.0) fL MCH (28.0-33.3) pg MCHC (31.6-35.5) g/dL RDW (11.5-14.5) % Plt Count (140-400) K/mcL MPV (9.4-12.4) fL Immature Gran % (0-4) % Seg Neutrophils % % Lymphocytes % % Monocytes % % Eosinophils % % Basophils % % Neutrophils # (1.6-8.9) K/mcL Lymphocytes # (0.6-4.6) K/mcL Monocytes # (0.0-1.3) K/mcL Eosinophils # (0.0-0.6) K/mcL Basophils # (0.0-0.2) K/mcL Nucleated RBCs/100 WBC (0) /100 WBC Platelet Estimate (Normal) Polychromasia (Not Present) Hypochromasia (Not Present) Anisocytosis (Not Present) PT (9.4-12.1) Seconds INR APTT (26.0-36.0) Seconds Sodium (136-145) mEq/L Potassium (3.5-4.5) mEq/L Chloride (98-109) mEq/L Carbon Dioxide (19-29) mEq/L BUN (7-20) mg/dL Creatinine (0.57-1.11) mg/dL Est GFR ( Amer) (> 60) Est GFR (Non-Af Amer) (> 60) BUN/Creatinine Ratio (6-26) Glucose (70-99) mg/dL POC Glucose (58-89) Calculated Osmolality (280-300) Lactic Acid 1.5 (0.5-2.2) mmol/L Calcium (8.6-10.8) mg/dL Total Bilirubin (0.2-1.2) mg/dL Direct Bilirubin (0.0-0.5) mg/dL Indirect Bilirubin (0.0-1.2) mg/dL AST (5-34) Units/L ALT (0-55) Units/L Alkaline Phosphatase (38-126) Units/L Ammonia (18-72) mcmol/L Troponin I 0.03 (0-0.03) ng/mL C-Reactive Protein 24 H (Less than 5) mg/L B-Natriuretic Peptide (0-100) pg/mL Serum Total Protein (6.0-8.3) g/dL Albumin (3.5-5.0) g/dL Globulin (2.4-3.5) g/dL Albumin/Globulin Ratio (1.1-2.2) Beta-Hydroxybutyric Acd 0.18 (0.02-0.27) mmol/L Salicylates (15-30) mg/dL Acetaminophen (10-30) mcg/mL Ethyl Alcohol (0-10) mg/dL 02/02/17 02/02/17 02/02/17 Range/Units 11:11 11:11 11:16 WBC (4.3-11.1) K/mcL RBC (3.82-4.97) M/mcL Hgb (11.5-15.4) g/dL Hct (35.3-44.9) % MCV (83.0-100.0) fL MCH (28.0-33.3) pg MCHC (31.6-35.5) g/dL RDW (11.5-14.5) % Plt Count (140-400) K/mcL MPV (9.4-12.4) fL Immature Gran % (0-4) % Seg Neutrophils % % Lymphocytes % % Monocytes % % Eosinophils % % Basophils % % Neutrophils # (1.6-8.9) K/mcL Lymphocytes # (0.6-4.6) K/mcL Monocytes # (0.0-1.3) K/mcL Eosinophils # (0.0-0.6) K/mcL Basophils # (0.0-0.2) K/mcL Nucleated RBCs/100 WBC (0) /100 WBC Platelet Estimate (Normal) Polychromasia (Not Present) Hypochromasia (Not Present) Anisocytosis (Not Present) PT (9.4-12.1) Seconds INR APTT (26.0-36.0) Seconds Sodium (136-145) mEq/L Potassium (3.5-4.5) mEq/L Chloride (98-109) mEq/L Carbon Dioxide (19-29) mEq/L BUN (7-20) mg/dL Creatinine (0.57-1.11) mg/dL Est GFR ( Amer) (> 60) Est GFR (Non-Af Amer) (> 60) BUN/Creatinine Ratio (6-26) Glucose (70-99) mg/dL POC Glucose 141 H (58-89) Calculated Osmolality (280-300) Lactic Acid (0.5-2.2) mmol/L Calcium (8.6-10.8) mg/dL Total Bilirubin (0.2-1.2) mg/dL Direct Bilirubin (0.0-0.5) mg/dL Indirect Bilirubin (0.0-1.2) mg/dL AST (5-34) Units/L ALT (0-55) Units/L Alkaline Phosphatase (38-126) Units/L Ammonia (18-72) mcmol/L Troponin I (0-0.03) ng/mL C-Reactive Protein (Less than 5) mg/L B-Natriuretic Peptide 1061 H (0-100) pg/mL Serum Total Protein (6.0-8.3) g/dL Albumin (3.5-5.0) g/dL Globulin (2.4-3.5) g/dL Albumin/Globulin Ratio (1.1-2.2) Beta-Hydroxybutyric Acd (0.02-0.27) mmol/L Salicylates < 5.0 L (15-30) mg/dL Acetaminophen < 1.0 L (10-30) mcg/mL Ethyl Alcohol (0-10) mg/dL
[2017-02-02] MEDS ORDERED: 0.9 % Sodium Chloride 1,000 ML IVC ONE (10:42)
[2017-02-02 11:30] LABS: INR 3.8; Prothrombin Time 42.5 Seconds (9.4-12.1)
[2017-02-02 11:32] LABS: Activated Partial Thrombo Time 49.8 Seconds (26.0-36.0)
[2017-02-02 11:35] LABS: Basophils % 0.2 %; Mean Platelet Volume 8.8 fL (9.4-12.4)
[2017-02-02 11:36] LABS: Eosinophils % 0.2 %; Hematocrit 31.5 % (35.3-44.9); Hemoglobin 8.9 g/dL (11.5-15.4); Immature Granulocytes % 1.2 % (0-4); Lymphocytes # 0.5 K/mcL (0.6-4.6); Lymphocytes % 3.7 %; Mean Corpuscular HGB Conc 28.3 g/dL (31.6-35.5); Mean Corpuscular Hemoglobin 23.3 pg (28.0-33.3); Mean Corpuscular Volume 82.5 fL (83.0-100.0); Monocytes # 0.9 K/mcL (0.0-1.3); Monocytes % 6.3 %; Nucleated Red Blood Cells 0.1 /100 WBC (0); Platelet Count 186 K/mcL (140-400); Red Blood Count 3.82 M/mcL (3.82-4.97); Red Cell Distribution Width 21.2 % (11.5-14.5); Segmented Neutrophils % 88.4 %
[2017-02-02 11:37] LABS: Calcium 8.6 mg/dL (8.6-10.8); Potassium 3.8 mEq/L (3.5-4.5)
[2017-02-02 11:38] LABS: Alanine Aminotransferase 7 Units/L (0-55); Albumin 2.4 g/dL (3.5-5.0); Albumin/Globulin Ratio 0.7 (1.1-2.2); Alkaline Phosphatase 138 Units/L (38-126); Aspartate Amino Transferase 11 Units/L (5-34); Bilirubin,Direct 0.4 mg/dL (0.0-0.5); Bilirubin,Indirect 0.3 mg/dL (0.0-1.2); Bilirubin,Total 0.7 mg/dL (0.2-1.2); Globulin 3.4 g/dL (2.4-3.5); Total Protein 5.8 g/dL (6.0-8.3)
[2017-02-02 11:39] LABS: Ethanol < 10 mg/dL (0-10)
--- NOTE | 2017-02-02 11:41 | Emergency Department Note ---
Disposition Clinical Impression: Frail elderly, CHF (congestive heart failure), Hip fracture, DM type 2 ( diabetes mellitus, type 2), End-stage renal disease on hemodialysis, Chronic atrial fibrillation, Morbid obesity with BMI of 45.0-49.9, adult, History of Coumadin therapy, Elevated INR, UTI (urinary tract infection), Mental status change, Opiate overdose, Sepsis, Pleural effusion, Anemia, Facial injury, Head injury Disposition: Admitted As Inpatient Condition: Fair General Adult HPI - General Chief complaint: ED General Medical Stated complaint: Hypoglycemia Time Seen by Provider: 02/02/17 09:26 Source: patient, EMS Limitations: no limitations - History of Present Illness HPI Narrative: 71-year-old female brought in by EMS from the long-term. There is concern for low blood sugar. Per the patient's daughter, the long-term called and let her know that the patient's blood sugar dropped to 30. This reportedly happened last night. The patient was brought in today for confusion. Per the daughter's report the patient had a hip fracture about a month ago, this was not repaired. She was at the long-term and fell hit her head about 3 weeks ago and sustained significant bruising to her head and face. The patient reportedly had an MRI which was negative per the daughter. There is no history of new trauma. The daughter reports that a few days ago the patient was alert oriented and conversant. Today the patient is unable to respond to questioning at all. There is concern for altered mental status. Initially [facility] had an Accu-Chek obtained, which was 87. Initial labs were ordered. The patient has multiple medical problems, is diabetic, and has a history of anticoagulation therapy and heart failure. Pain Scale: 10 - Related Data Home Medications Medication Instructions Recorded Confirmed Metoprolol [Lopressor] 12.5 mg PO BID 08/14/15 02/02/17 Sertraline [Zoloft] 150 mg PO DAILY 08/14/15 02/02/17 Sucralfate [Carafate] 2 gm PO BID 08/14/15 02/02/17 glipiZIDE [Glucotrol] 10 mg PO BID 08/14/15 02/02/17 Lactulose 10 gm PO QID 06/24/16 02/02/17 Aspirin 81 mg PO DAILY 07/11/16 02/02/17 Fluticasone/Vilanterol [Breo 1 puff IH DAILY 07/11/16 02/02/17 Ellipta 100-25 Mcg INH] Pantoprazole Sodium [Protonix] 40 mg PO DAILY 07/11/16 02/02/17 Diltiazem [Cardizem] 30 mg PO TID 09/20/16 02/02/17 Gabapentin [Neurontin] 100 mg PO BID 09/20/16 02/02/17 Sennosides [Senna] 17.2 mg PO DAILY 09/20/16 02/02/17 Simethicone [Gas-X] 120 mg PO BID PRN 09/20/16 02/02/17 Insulin ASPART [Novolog Flexpen] 0 - 12 units SQ TID MDD PER 11/13/16 02/02/17 SLIDING SCALE Ferrous Gluconate 324 mg PO TID 01/12/17 02/02/17 Warfarin [Coumadin] 2 mg PO HS 01/12/17 02/02/17 Amino Acids/Protein Hydrolys 30 ml PO BID 01/28/17 02/02/17 [Pro-Stat Awc Liquid] Ipratropium/Albuterol Neb [Duoneb] 3 ml IH Q6HR PRN 01/28/17 02/02/17 Mupirocin [Bactroban Oint] 1 appl TP MOWEFR 01/28/17 02/02/17 Oxycodone HCl 10 mg PO Q6H PRN 01/28/17 02/02/17 Previous Rx's Medication Instructions Recorded Folic Acid 1 mg PO DAILY #30 tablet 12/03/16 Allergies Allergy/AdvReac Type Severity Reaction Status Date / Time ceftriaxone [From Rocephin] Allergy Severe Anaphylaxis Verified 01/18/17 06:24 ciprofloxacin [From Cipro] Allergy Mild Rash Verified 01/18/17 06:24 sulfamethoxazole Allergy See Verified 01/18/17 06:24 [From Bactrim] Comments trimethoprim [From Bactrim] Allergy See Verified 01/18/17 06:24 Comments rozeta Allergy See Uncoded 01/18/17 06:24 Comments Limitations: ROS unobtainable due to patients medical condition Past Medical History - Past Medical History Medical history: Reports: arthritis, atrial fibrillation, cirrhosis, CHF, COPD, diabetes, GERD, hyperlipidemia, hypertension, renal disease, other Surgical history: Reports: cholecystectomy, hysterectomy Psychiatric history: Reports: anxiety, panic disorder [employer] history: Reports: bilateral tubal ligation - Social History Smoking Status: Never smoker Smokeless Tobacco Status: No Alcohol use: Reports: none Drug use: Reports: none Physical Exam - General Limitations: altered mental status, other (Patient is completely unresponsive to questioning or sternal rub.) General appearance: alert - Head Head exam: other (Markedly bruising about the forehead and face around the eyes. ) - Eye Eye exam: Present: EOMI, miosis - ENT ENT exam: normal exam, normal oropharynx, mucous membranes moist, TM's normal bilaterally, normal external ear exam - Neck Neck exam: Present: normal inspection, full ROM, trachea midline - Chest Chest inspection: Present: symmetric chest wall rise. Absent: tenderness - Respiratory Respiratory exam: Present: prolonged expiratory phase. Absent: respiratory distress, wheezes, stridor, accessory muscle use - Cardiovascular Cardiovascular exam: Present: regular rate, normal rhythm, normal heart sounds - Abdominal Exam Abdominal exam: Present: soft, Non-Tender, normal bowel sounds. Absent: tenderness, distention, guarding, rebound, rigidity, trauma, pulsatile mass - Extremities Exam Extremities exam: Present: normal inspection, full ROM, normal capillary refill. Absent: tenderness, pedal edema, joint swelling, calf tenderness - Expanded Lower Extremity Exam Hip/Pelvis exam: Present: full ROM, external rotation (Right side external rotation consistent with history of previous hip fracture with no repair.) Upper leg exam: Present: full ROM Knee exam: Present: full ROM Lower leg exam: Present: full ROM Ankle exam: Present: full ROM Foot/toe exam: Present: full ROM Neurovascular/Tendon exam: Present: normal capillary refill. Absent: motor deficit, sensory deficit, tendon deficit, extremity cold to touch, pallor - Back Exam Back exam: Present: normal inspection, full ROM. Absent: tenderness, CVA tenderness (R), CVA tenderness (L), vertebral tenderness - Neurological Exam Neurological exam: Present: alert, CN II-XII intact, other. Absent: oriented X3 - Skin Skin exam: Present: warm, dry, intact, normal color. Absent: rash, cyanosis, diaphoresis, erythema, pallor (Initially the extremities were flaccid. Narcan given. The patient was subsequently able to move her arms and legs and appeared to have no unilateral defects cranium nerves II through XII appear to be grossly intact. She was alert and began moaning.), mottled Course - Reevaluation(s) Reevaluation #1: On arrival, the patient was unresponsive to voice or painful stimulus. The patient was nonverbal, the patient's extremities were essentially flaccid and she displayed no pain with movement of her right hip which is reportedly fractured. Glascow coma scale arrival was essentially 3. Narcan administered, the patient became alert but still had altered mentation and displayed some persistent confusion with a Glascow coma scale of 14. Reevaluation #2: The patient has a history of end-stage renal failure and CHF. Initial fluid was given secondary to hypotension, bolus was discontinued and the patient was maintained at 100 mL an hour. Reevaluation #3: The patient has severe allergic reactions to many antibiotics including ceftriaxone which caused anaphylaxis, the daughter reports the patient has a penicillin allergy, Ciprofloxin causes a rash sulfa also causes problems. The patient was agitated in the ED after getting the Narcan. Ativan was given. The patient remained somewhat confused. A UTI is noted. IV fluid was given judiciously. The patient may be septic but has a history of CHF and renal failure, cautioius fluid hydration therapy indicated. Lactic acid negative. Vital Signs Temperature 97.8 F 02/02/17 09:25 Pulse Rate 53 02/02/17 09:25 Respiratory Rate 18 02/02/17 09:25 Blood Pressure 100/55 02/02/17 09:25 O2 Sat by Pulse Oximetry 100 02/02/17 09:25 Temperature 97.8 F 02/02/17 09:25 Pulse Rate 74 02/02/17 15:18 Respiratory Rate 16 02/02/17 15:18 Blood Pressure 118/68 02/02/17 15:18 O2 Sat by Pulse Oximetry 100 02/02/17 15:18 Oxygen Delivery Oxygen Delivery Nasal Cannula Medical Decision Making - [facility] Narrative Medical decision making narrative: The patient is elderly, came in essentially obtunded, was given Narcan and revive too great degree. She remained somewhat confused. She has a history of significant head and facial injury and showed bruising throughout the face season forehead. CT scan facies head and neck reveal no acute disease. The patient is anemic, and renal failure, has chronic atrial fibrillation, is anticoagulated, and demonstrates changes suggestive of UTI and/or sepsis. The patient was given judicious fluid therapy, secondary to renal failure and CHF, and of note the patient has multiple allergies to medications some severe including anaphylaxis to Rocephin. Per the daughter the patient has never had Levaquin. She did develop a rash to ciprofloxacin. Based on what appears to be a pleural effusion and an elevated white count and UTI changes, an initial dose of Levaquin was ordered. I reviewed with the hospitalist who concurs. I discussed the case with the hospitalist on-call who has accepted the patient to their care. The patient is currently stable. I do not think she can go home based on her overt confusion, likely narcotic overdose, probable sepsis, and multiple comorbidities with persistent altered mentation. The patient is currently stable pending admission to the hospital. - Lab Data Lab results reviewed: Yes I reviewed the patient's lab results. Result diagrams: 02/02/17 11:11 02/02/17 11:11 Lab Results 02/02/17 02/02/17 02/02/17 Range/Units 09:56 11:11 11:11 WBC 14.7 H D (4.3-11.1) K/mcL RBC 3.82 (3.82-4.97) M/mcL Hgb 8.9 L (11.5-15.4) g/dL Hct 31.5 L (35.3-44.9) % MCV 82.5 L (83.0-100.0) fL MCH 23.3 L (28.0-33.3) pg MCHC 28.3 L (31.6-35.5) g/dL RDW 21.2 H (11.5-14.5) % Plt Count 186 (140-400) K/mcL MPV 8.8 L (9.4-12.4) fL Immature Gran % 1.2 (0-4) % Seg Neutrophils % 88.4 % Lymphocytes % 3.7 % Monocytes % 6.3 % Eosinophils % 0.2 % Basophils % 0.2 % Neutrophils # 13.0 H (1.6-8.9) K/mcL Lymphocytes # 0.5 L (0.6-4.6) K/mcL Monocytes # 0.9 (0.0-1.3) K/mcL Eosinophils # 0.0 (0.0-0.6) K/mcL Basophils # 0.0 (0.0-0.2) K/mcL Nucleated RBCs/100 WBC 0.1 H (0) /100 WBC Platelet Estimate Normal (Normal) Polychromasia 1+ A (Not Present) Hypochromasia Present A (Not Present) Anisocytosis 1+ A (Not Present) PT (9.4-12.1) Seconds INR APTT (26.0-36.0) Seconds Sodium 133 L (136-145) mEq/L Potassium 3.8 (3.5-4.5) mEq/L Chloride 97 L (98-109) mEq/L Carbon Dioxide 27 (19-29) mEq/L BUN 21 H (7-20) mg/dL Creatinine 2.86 H (0.57-1.11) mg/dL Est GFR ( Amer) 20 L (> 60) Est GFR (Non-Af Amer) 16 L (> 60) BUN/Creatinine Ratio 7 (6-26) Glucose 136 H (70-99) mg/dL POC Glucose 87 (58-89) Calculated Osmolality 281 (280-300) Lactic Acid (0.5-2.2) mmol/L Calcium 8.6 (8.6-10.8) mg/dL Total Bilirubin (0.2-1.2) mg/dL Direct Bilirubin (0.0-0.5) mg/dL Indirect Bilirubin (0.0-1.2) mg/dL AST (5-34) Units/L ALT (0-55) Units/L Alkaline Phosphatase (38-126) Units/L Ammonia (18-72) mcmol/L Troponin I (0-0.03) ng/mL C-Reactive Protein (Less than 5) mg/L B-Natriuretic Peptide (0-100) pg/mL Serum Total Protein (6.0-8.3) g/dL Albumin (3.5-5.0) g/dL Globulin (2.4-3.5) g/dL Albumin/Globulin Ratio (1.1-2.2) Beta-Hydroxybutyric Acd (0.02-0.27) mmol/L Urine Color (Yellow) Urine Clarity (Clear) Urine pH (5.0-8.0) pH Units Ur Specific [place] (1.010-1.025) Urine Protein (Neg-Trace) mg/dL Urine Glucose (UA) (Normal) mg/dL Urine Ketones (Negative) mg/dL Urine Blood (Negative) Urine Nitrite (Negative) Urine Bilirubin (Negative) Urine Urobilinogen (Normal) mg/dL Ur Leukocyte Esterase (Negative) Urine Microscopic RBC (0-3) per hpf Urine Microscopic WBC (0-3) per hpf Ur Squamous Epith Cells (None-Few) per lpf Urine Bacteria (None-Few) per hpf Ur Culture Indicated? (NO) Salicylates (15-30) mg/dL Urine Opiates Screen (Fbjdtl=938) ng/mL Acetaminophen (10-30) mcg/mL Ur Barbiturates Screen (Eiqhpq=141) ng/mL Ur Phencyclidine Scrn (Cutoff=25) ng/mL Ur Amphetamines Screen (Xwqdap=8261) ng/mL U Benzodiazepines Scrn (Orgrxw=765) ng/mL Urine Cocaine Screen (Cutoff= 300) ng/mL U Marijuana (THC) Screen (Cutoff = 50) ng/mL Ethyl Alcohol (0-10) mg/dL 02/02/17 02/02/17 02/02/17 Range/Units 11:11 11:11 11:11 WBC (4.3-11.1) K/mcL RBC (3.82-4.97) M/mcL Hgb (11.5-15.4) g/dL Hct (35.3-44.9) % MCV (83.0-100.0) fL MCH (28.0-33.3) pg MCHC (31.6-35.5) g/dL RDW (11.5-14.5) % Plt Count (140-400) K/mcL MPV (9.4-12.4) fL Immature Gran % (0-4) % Seg Neutrophils % % Lymphocytes % % Monocytes % % Eosinophils % % Basophils % % Neutrophils # (1.6-8.9) K/mcL Lymphocytes # (0.6-4.6) K/mcL Monocytes # (0.0-1.3) K/mcL Eosinophils # (0.0-0.6) K/mcL Basophils # (0.0-0.2) K/mcL Nucleated RBCs/100 WBC (0) /100 WBC Platelet Estimate (Normal) Polychromasia (Not Present) Hypochromasia (Not Present) Anisocytosis (Not Present) PT 42.5 H (9.4-12.1) Seconds INR 3.8 APTT 49.8 H (26.0-36.0) Seconds Sodium (136-145) mEq/L Potassium (3.5-4.5) mEq/L Chloride (98-109) mEq/L Carbon Dioxide (19-29) mEq/L BUN (7-20) mg/dL Creatinine (0.57-1.11) mg/dL Est GFR ( Amer) (> 60) Est GFR (Non-Af Amer) (> 60) BUN/Creatinine Ratio (6-26) Glucose (70-99) mg/dL POC Glucose (58-89) Calculated Osmolality (280-300) Lactic Acid (0.5-2.2) mmol/L Calcium (8.6-10.8) mg/dL Total Bilirubin 0.7 (0.2-1.2) mg/dL Direct Bilirubin 0.4 (0.0-0.5) mg/dL Indirect Bilirubin 0.3 (0.0-1.2) mg/dL AST 11 (5-34) Units/L ALT 7 (0-55) Units/L Alkaline Phosphatase 138 H (38-126) Units/L Ammonia 21 (18-72) mcmol/L Troponin I (0-0.03) ng/mL C-Reactive Protein (Less than 5) mg/L B-Natriuretic Peptide (0-100) pg/mL Serum Total Protein 5.8 L (6.0-8.3) g/dL Albumin 2.4 L (3.5-5.0) g/dL Globulin 3.4 (2.4-3.5) g/dL Albumin/Globulin Ratio 0.7 L (1.1-2.2) Beta-Hydroxybutyric Acd (0.02-0.27) mmol/L Urine Color (Yellow) Urine Clarity (Clear) Urine pH (5.0-8.0) pH Units Ur Specific [place] (1.010-1.025) Urine Protein (Neg-Trace) mg/dL Urine Glucose (UA) (Normal) mg/dL Urine Ketones (Negative) mg/dL Urine Blood (Negative) Urine Nitrite (Negative) Urine Bilirubin (Negative) Urine Urobilinogen (Normal) mg/dL Ur Leukocyte Esterase (Negative) Urine Microscopic RBC (0-3) per hpf Urine Microscopic WBC (0-3) per hpf Ur Squamous Epith Cells (None-Few) per lpf Urine Bacteria (None-Few) per hpf Ur Culture Indicated? (NO) Salicylates (15-30) mg/dL Urine Opiates Screen (Pdrczo=126) ng/mL Acetaminophen (10-30) mcg/mL Ur Barbiturates Screen (Tgioui=212) ng/mL Ur Phencyclidine Scrn (Cutoff=25) ng/mL Ur Amphetamines Screen (Dsiabb=0336) ng/mL U Benzodiazepines Scrn (Yobyzn=474) ng/mL Urine Cocaine Screen (Cutoff= 300) ng/mL U Marijuana (THC) Screen (Cutoff = 50) ng/mL Ethyl Alcohol < 10 (0-10) mg/dL 02/02/17 02/02/17 02/02/17 Range/Units 11:11 11:11 11:11 WBC (4.3-11.1) K/mcL RBC (3.82-4.97) M/mcL Hgb (11.5-15.4) g/dL Hct (35.3-44.9) % MCV (83.0-100.0) fL MCH (28.0-33.3) pg MCHC (31.6-35.5) g/dL RDW (11.5-14.5) % Plt Count (140-400) K/mcL MPV (9.4-12.4) fL Immature Gran % (0-4) % Seg Neutrophils % % Lymphocytes % % Monocytes % % Eosinophils % % Basophils % % Neutrophils # (1.6-8.9) K/mcL Lymphocytes # (0.6-4.6) K/mcL Monocytes # (0.0-1.3) K/mcL Eosinophils # (0.0-0.6) K/mcL Basophils # (0.0-0.2) K/mcL Nucleated RBCs/100 WBC (0) /100 WBC Platelet Estimate (Normal) Polychromasia (Not Present) Hypochromasia (Not Present) Anisocytosis (Not Present) PT (9.4-12.1) Seconds INR APTT (26.0-36.0) Seconds Sodium (136-145) mEq/L Potassium (3.5-4.5) mEq/L Chloride (98-109) mEq/L Carbon Dioxide (19-29) mEq/L BUN (7-20) mg/dL Creatinine (0.57-1.11) mg/dL Est GFR ( Amer) (> 60) Est GFR (Non-Af Amer) (> 60) BUN/Creatinine Ratio (6-26) Glucose (70-99) mg/dL POC Glucose (58-89) Calculated Osmolality (280-300) Lactic Acid 1.5 (0.5-2.2) mmol/L Calcium (8.6-10.8) mg/dL Total Bilirubin (0.2-1.2) mg/dL Direct Bilirubin (0.0-0.5) mg/dL Indirect Bilirubin (0.0-1.2) mg/dL AST (5-34) Units/L ALT (0-55) Units/L Alkaline Phosphatase (38-126) Units/L Ammonia (18-72) mcmol/L Troponin I 0.03 (0-0.03) ng/mL C-Reactive Protein 24 H (Less than 5) mg/L B-Natriuretic Peptide (0-100) pg/mL Serum Total Protein (6.0-8.3) g/dL Albumin (3.5-5.0) g/dL Globulin (2.4-3.5) g/dL Albumin/Globulin Ratio (1.1-2.2) Beta-Hydroxybutyric Acd 0.18 (0.02-0.27) mmol/L Urine Color (Yellow) Urine Clarity (Clear) Urine pH (5.0-8.0) pH Units Ur Specific [place] (1.010-1.025) Urine Protein (Neg-Trace) mg/dL Urine Glucose (UA) (Normal) mg/dL Urine Ketones (Negative) mg/dL Urine Blood (Negative) Urine Nitrite (Negative) Urine Bilirubin (Negative) Urine Urobilinogen (Normal) mg/dL Ur Leukocyte Esterase (Negative) Urine Microscopic RBC (0-3) per hpf Urine Microscopic WBC (0-3) per hpf Ur Squamous Epith Cells (None-Few) per lpf Urine Bacteria (None-Few) per hpf Ur Culture Indicated? (NO) Salicylates (15-30) mg/dL Urine Opiates Screen (Eaapvt=277) ng/mL Acetaminophen (10-30) mcg/mL Ur Barbiturates Screen (Kzzsxh=125) ng/mL Ur Phencyclidine Scrn (Cutoff=25) ng/mL Ur Amphetamines Screen (Zwjxtu=3821) ng/mL U Benzodiazepines Scrn (Pmilmd=485) ng/mL Urine Cocaine Screen (Cutoff= 300) ng/mL U Marijuana (THC) Screen (Cutoff = 50) ng/mL Ethyl Alcohol (0-10) mg/dL 02/02/17 02/02/17 02/02/17 Range/Units 11:11 11:11 11:16 WBC (4.3-11.1) K/mcL RBC (3.82-4.97) M/mcL Hgb (11.5-15.4) g/dL Hct (35.3-44.9) % MCV (83.0-100.0) fL MCH (28.0-33.3) pg MCHC (31.6-35.5) g/dL RDW (11.5-14.5) % Plt Count (140-400) K/mcL MPV (9.4-12.4) fL Immature Gran % (0-4) % Seg Neutrophils % % Lymphocytes % % Monocytes % % Eosinophils % % Basophils % % Neutrophils # (1.6-8.9) K/mcL Lymphocytes # (0.6-4.6) K/mcL Monocytes # (0.0-1.3) K/mcL Eosinophils # (0.0-0.6) K/mcL Basophils # (0.0-0.2) K/mcL Nucleated RBCs/100 WBC (0) /100 WBC Platelet Estimate (Normal) Polychromasia (Not Present) Hypochromasia (Not Present) Anisocytosis (Not Present) PT (9.4-12.1) Seconds INR APTT (26.0-36.0) Seconds Sodium (136-145) mEq/L Potassium (3.5-4.5) mEq/L Chloride (98-109) mEq/L Carbon Dioxide (19-29) mEq/L BUN (7-20) mg/dL Creatinine (0.57-1.11) mg/dL Est GFR ( Amer) (> 60) Est GFR (Non-Af Amer) (> 60) BUN/Creatinine Ratio (6-26) Glucose (70-99) mg/dL POC Glucose 141 H (58-89) Calculated Osmolality (280-300) Lactic Acid (0.5-2.2) mmol/L Calcium (8.6-10.8) mg/dL Total Bilirubin (0.2-1.2) mg/dL Direct Bilirubin (0.0-0.5) mg/dL Indirect Bilirubin (0.0-1.2) mg/dL AST (5-34) Units/L ALT (0-55) Units/L Alkaline Phosphatase (38-126) Units/L Ammonia (18-72) mcmol/L Troponin I (0-0.03) ng/mL C-Reactive Protein (Less than 5) mg/L B-Natriuretic Peptide 1061 H (0-100) pg/mL Serum Total Protein (6.0-8.3) g/dL Albumin (3.5-5.0) g/dL Globulin (2.4-3.5) g/dL Albumin/Globulin Ratio (1.1-2.2) Beta-Hydroxybutyric Acd (0.02-0.27) mmol/L Urine Color (Yellow) Urine Clarity (Clear) Urine pH (5.0-8.0) pH Units Ur Specific [place] (1.010-1.025) Urine Protein (Neg-Trace) mg/dL Urine Glucose (UA) (Normal) mg/dL Urine Ketones (Negative) mg/dL Urine Blood (Negative) Urine Nitrite (Negative) Urine Bilirubin (Negative) Urine Urobilinogen (Normal) mg/dL Ur Leukocyte Esterase (Negative) Urine Microscopic RBC (0-3) per hpf Urine Microscopic WBC (0-3) per hpf Ur Squamous Epith Cells (None-Few) per lpf Urine Bacteria (None-Few) per hpf Ur Culture Indicated? (NO) Salicylates < 5.0 L (15-30) mg/dL Urine Opiates Screen (Yhiyfb=601) ng/mL Acetaminophen < 1.0 L (10-30) mcg/mL Ur Barbiturates Screen (Mdaqfs=363) ng/mL Ur Phencyclidine Scrn (Cutoff=25) ng/mL Ur Amphetamines Screen (Ftoipo=9340) ng/mL U Benzodiazepines Scrn (Zeufis=927) ng/mL Urine Cocaine Screen (Cutoff= 300) ng/mL U Marijuana (THC) Screen (Cutoff = 50) ng/mL Ethyl Alcohol (0-10) mg/dL 02/02/17 02/02/17 Range/Units 12:38 14:20 WBC (4.3-11.1) K/mcL RBC (3.82-4.97) M/mcL Hgb (11.5-15.4) g/dL Hct (35.3-44.9) % MCV (83.0-100.0) fL MCH (28.0-33.3) pg MCHC (31.6-35.5) g/dL RDW (11.5-14.5) % Plt Count (140-400) K/mcL MPV (9.4-12.4) fL Immature Gran % (0-4) % Seg Neutrophils % % Lymphocytes % % Monocytes % % Eosinophils % % Basophils % % Neutrophils # (1.6-8.9) K/mcL Lymphocytes # (0.6-4.6) K/mcL Monocytes # (0.0-1.3) K/mcL Eosinophils # (0.0-0.6) K/mcL Basophils # (0.0-0.2) K/mcL Nucleated RBCs/100 WBC (0) /100 WBC Platelet Estimate (Normal) Polychromasia (Not Present) Hypochromasia (Not Present) Anisocytosis (Not Present) PT (9.4-12.1) Seconds INR APTT (26.0-36.0) Seconds Sodium (136-145) mEq/L Potassium (3.5-4.5) mEq/L Chloride (98-109) mEq/L Carbon Dioxide (19-29) mEq/L BUN (7-20) mg/dL Creatinine (0.57-1.11) mg/dL Est GFR ( Amer) (> 60) Est GFR (Non-Af Amer) (> 60) BUN/Creatinine Ratio (6-26) Glucose (70-99) mg/dL POC Glucose (58-89) Calculated Osmolality (280-300) Lactic Acid (0.5-2.2) mmol/L Calcium (8.6-10.8) mg/dL Total Bilirubin (0.2-1.2) mg/dL Direct Bilirubin (0.0-0.5) mg/dL Indirect Bilirubin (0.0-1.2) mg/dL AST (5-34) Units/L ALT (0-55) Units/L Alkaline Phosphatase (38-126) Units/L Ammonia (18-72) mcmol/L Troponin I (0-0.03) ng/mL C-Reactive Protein (Less than 5) mg/L B-Natriuretic Peptide (0-100) pg/mL Serum Total Protein (6.0-8.3) g/dL Albumin (3.5-5.0) g/dL Globulin (2.4-3.5) g/dL Albumin/Globulin Ratio (1.1-2.2) Beta-Hydroxybutyric Acd (0.02-0.27) mmol/L Urine Color Red A (Yellow) Urine Clarity Turbid A (Clear) Urine pH 7.0 (5.0-8.0) pH Units Ur Specific [place] 1.020 (1.010-1.025) Urine Protein 100 H (Neg-Trace) mg/dL Urine Glucose (UA) Normal (Normal) mg/dL Urine Ketones Trace H (Negative) mg/dL Urine Blood Large H (Negative) Urine Nitrite Positive A (Negative) Urine Bilirubin Negative (Negative) Urine Urobilinogen Normal (Normal) mg/dL Ur Leukocyte Esterase Moderate H (Negative) Urine Microscopic RBC 15-30 H (0-3) per hpf Urine Microscopic WBC TNTC H (0-3) per hpf Ur Squamous Epith Cells Many H (None-Few) per lpf Urine Bacteria Many H (None-Few) per hpf Ur Culture Indicated? YES A (NO) Salicylates (15-30) mg/dL Urine Opiates Screen Negative (Vqzgai=032) ng/mL Acetaminophen (10-30) mcg/mL Ur Barbiturates Screen Negative (Yruqnq=426) ng/mL Ur Phencyclidine Scrn Negative (Cutoff=25) ng/mL Ur Amphetamines Screen Negative (Wrcdre=5146) ng/mL U Benzodiazepines Scrn Negative (Mgamhp=223) ng/mL Urine Cocaine Screen Negative (Cutoff= 300) ng/mL U Marijuana (THC) Screen Negative (Cutoff = 50) ng/mL Ethyl Alcohol (0-10) mg/dL - Radiology Data Radiology results reviewed: Yes I reviewed the patient's radiology results.
[2017-02-02 11:54] LABS: Beta-Hydroxybutyric Acid 0.18 mmol/L (0.02-0.27)
[2017-02-02] MEDS ORDERED: *HR* LORazepam 2 MG/ML VIAL IVP ONE ×2 (12:01→12:36)
[2017-02-02 12:07] LABS: Acetaminophen < 1.0 mcg/mL (10-30); Salicylate < 5.0 mg/dL (15-30)
[2017-02-02] MEDS ORDERED: 0.9 % Sodium Chloride 1,000 ML IVC SCH (12:45)
[2017-02-02 12:47] LABS: Anisocytosis 1+ (Not Present); Platelet Estimate Normal (Normal); Polychromasia 1+ (Not Present)
[2017-02-02 12:48] LABS: Hypochromasia Present (Not Present)
[2017-02-02 14:33] LABS: Bilirubin,Urine Negative (Negative); Blood,Urine Large (Negative); Clarity,Urine Turbid (Clear); Color,Urine Red (Yellow); Glucose,Urine (UA) Normal (Normal); Ketones,Urine Trace mg/dL (Negative); Leukocyte Esterase,Urine Moderate (Negative); Nitrite,Urine Positive (Negative); Protein,Urine 100 mg/dL (Neg-Trace); Urobilinogen,Urine Normal (Normal)
[2017-02-02 14:37] LABS: Amphetamine Screen,Urine Negative ng/mL (Cutoff=1000); Barbiturate Screen,Urine Negative ng/mL (Cutoff=200); Benzodiazepines Screen,Urine Negative ng/mL (Cutoff=200); Cannabinoid Screen,Urine Negative ng/mL (Cutoff = 50); Cocaine Screen,Urine Negative ng/mL (Cutoff= 300); Opiate Screen,Urine Negative ng/mL (Cutoff=300); Phencyclidine Screen,Urine Negative ng/mL (Cutoff=25)
[2017-02-02 14:38] LABS: Bacteria,Urine Many per hpf (None-Few); RBC,Urine 15-30 per hpf (0-3); Squamous Epithelial Cell,Urine Many per lpf (None-Few); WBC,Urine TNTC per hpf (0-3)
[2017-02-02] MEDS ORDERED: Levofloxacin 500 MG/100 ML 500 MG/100 ML BAG IVPB ONE (16:05)
[2017-02-02] MEDS ORDERED: Ondansetron 4 MG/2 ML VIAL IVP PRN (16:42)
[2017-02-02] MEDS ORDERED: Naloxone 0.4 MG/ML INJ IVP PRN (16:42)
[2017-02-02] MEDS ORDERED: Dextrose Gel 15 GM PO PRN ×2 (16:48)
[2017-02-02] MEDS ORDERED: D5% in Water 1,000 ML IVC PRN (16:48)
--- NOTE | 2017-02-02 16:57 | Internal Med History&Physical ---
Date of Encounter: 02/02/17 Time of Encounter: 16:00 Assessment and Plan (1) CHF (congestive heart failure) Current visit: Yes Status: Acute No signs of exacerbation. Cont closely monitoring and follow scheduled HD. Qualifiers: Congestive heart failure type: diastolic Congestive heart failure chronicity: chronic Qualified Code(s): I50.32 - Chronic diastolic (congestive ) heart failure (2) Chronic atrial fibrillation Current visit: Yes Status: Acute HR is well controlled. On coumadin, F/U INR (3) End-stage renal disease on hemodialysis Current visit: Yes Status: Acute On HD, schedule M/W/F, had HD yesterday. (4) Opiate overdose Current visit: Yes Status: Acute Pt has hip pain on oxycodone. AMS respond to narcan, consider opiod overdose. - Narcan given in ER - Normal breat deepth and RR on exam, sleepy is due to Ativan, can be wake up. - Continuous cardiac and pulseoxymeter monitoring, readministrate narcan if necessary - Vital check every 2 hour Qualifiers: Encounter type: initial encounter Injury intent: accidental or unintentional Qualified Code(s): T40.601A - Poisoning by unspecified narcotics , accidental (unintentional), initial encounter (5) DM (diabetes mellitus), type 2 Current visit: Yes Status: Chronic Place pt on low dose sliding scale. Hypoglycemia protocol. 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 CT head negative. - Keep close monitoring, expect will resume mental status soon. - Keep NPO at this point. Qualifiers: Altered mental status type: delirium Qualified Code(s): R41.0 - Disorientation, unspecified (7) Closed right hip fracture Current visit: No Status: Acute Saw orthopedic previously, recommend conservative treatment. Qualifiers: Encounter type: initial encounter Qualified Code(s): S72.001A - Fracture of unspecified part of neck of right femur, initial encounter for closed fracture (8) DVT prophylaxis Current visit: No Status: Acute On coumadin (9) LITO on CPAP Current visit: No Status: Chronic Put pt on BiPAP at night but as I know pt is not compliant with it. Internal Medicine - H&P: HPI Chief complaint: AMS Admitted From: Long-term Nursing Facility Plans for Post Hospital Care: [facility] History of present illness: Ms. Rdoriguez is a 71 year old female sent to ER from skilled nursing for altered mental status. When I saw pt, she is sedated by ativan given in ER. Hx is obtained from pt's daughter. I know pt because she was admitted several days ago for fluid overload and was taken care by me. As per pt's daughter, she was found hypoglycemia last night with Glu at 30s, which was corrected by giving glu in NH. However, this morning, pt was found nonresponsive in NH, Glu is recheck, reportly "high", but don't know the number. Pt was sent to ER and Glu is 87 upon arrival. Pt also is on pain medication oxycodone for hip pain (has fracture, on conservative management). She was considered opiod overdose and was given Narcan 0.4mg. After narcan, she was wake up but agitated, ER gave her ativan 0.5mg iv x 2 and she is sleeping now. Denies fall. Pt was admitted for further management. I discussed code status with pt's daughter, FULL CODE placed per family wishes. Past Med Surg Social Fam HX - Past Medical History Medical history: arthritis, atrial fibrillation, cirrhosis, CHF, COPD, diabetes , GERD, hyperlipidemia, hypertension, renal disease, other Psychiatric history: anxiety, panic disorder - Past Surgical History Surgical History: cholecystectomy, hysterectomy - Social History Smoking Status: Never smoker Smokeless Tobacco Status: No Alcohol use: none Drug use: none - Family History Mother Living Status: Hx Family Cardiac Disorders: Yes Hx Family GI Disorders: Yes Hx Family Endocrine Disorder: Yes Father Living Status: Hx Family Cardiac Disorders: Yes Hx Family Cancer: Yes Sister Living Status: Still Living Hx Family Cancer: Yes (Breast Cancer, age 40's) Hx Family Endocrine Disorder: Yes (diabetes mellitus) Brother Living Status: Still Living Hx Family Cardiac Disorders: No Hx Family Respiratory Disorders: No Hx Family Cancer: No Hx Family GI Disorders: No Hx Family Endocrine Disorder: Yes Hx Family Neuromuscular Disorders: No Hx Family Neurologic Disorders: No Hx Family HEENT Disorders: No Hx Family Autoimmune Disorders: No Internal Medicine - H&P: Meds Metoprolol [Lopressor] 12.5 mg PO BID 08/14/15 [History] Sertraline [Zoloft] 150 mg PO DAILY 08/14/15 [History] Sucralfate [Carafate] 2 gm PO BID 08/14/15 [History] glipiZIDE [Glucotrol] 10 mg PO BID 08/14/15 [History] Lactulose 10 gm PO QID 06/24/16 [History] Aspirin 81 mg PO DAILY 07/11/16 [History] Fluticasone/Vilanterol [Breo Ellipta 100-25 Mcg INH] 1 puff IH DAILY 07/11/16 [ History] Pantoprazole Sodium [Protonix] 40 mg PO DAILY 07/11/16 [History] Diltiazem [Cardizem] 30 mg PO TID 09/20/16 [History] Gabapentin [Neurontin] 100 mg PO BID 09/20/16 [History] Sennosides [Senna] 17.2 mg PO DAILY 09/20/16 [History] Simethicone [Gas-X] 120 mg PO BID PRN 09/20/16 [History] Insulin ASPART [Novolog Flexpen] 0 - 12 units SQ TID MDD PER SLIDING SCALE 11/13 [History] Folic Acid 1 mg PO DAILY #30 tablet 12/03/16 [Rx] Ferrous Gluconate 324 mg PO TID 01/12/17 [History] Warfarin [Coumadin] 2 mg PO HS 01/12/17 [History] Amino Acids/Protein Hydrolys [Pro-Stat Awc Liquid] 30 ml PO BID 01/28/17 [ History] Ipratropium/Albuterol Neb [Duoneb] 3 ml IH Q6HR PRN 01/28/17 [History] Mupirocin [Bactroban Oint] 1 appl TP MOWEFR 01/28/17 [History] Oxycodone HCl 10 mg PO Q6H PRN 01/28/17 [History] Allergies ceftriaxone [From Rocephin] Allergy (Severe, Verified 01/18/17 06:24) Anaphylaxis Occured at [facility]. Required ICU transfer, intubation, and mechanical ventilation. ciprofloxacin [From Cipro] Allergy (Mild, Verified 01/18/17 06:24) Rash sulfamethoxazole [From Bactrim] Allergy (Verified 01/18/17 06:24) See Comments trimethoprim [From Bactrim] Allergy (Verified 01/18/17 06:24) See Comments rozeta Allergy (Uncoded 01/18/17 06:24) See Comments All Systems PM: A 10-system review of systems was performed and is negative for pertinent findings except as documented above in the HPI. - Constitutional Vitals: Temp Pulse Resp BP Pulse Ox 97.8 F 74 16 118/68 100 02/02/17 09:25 02/02/17 15:18 02/02/17 15:18 02/02/17 15:18 02/02/17 15:18 Exam: Sleepy, can open eyes upon verbal stimulation, not talk - Head Head exam: Present: atraumatic, normocephalic Additional comments: Periobital bruises due to previous fall - Eye Eye exam: Present: PERRL, conjuntiva pink, sclera anicteric Pupils: Present: PERRL - Neck Neck exam general surgery: Present: supple, trachea midline. Absent: lymphadenopathy - Respiratory Respiratory exam: Present: CTAB. Absent: accessory muscle use, rales, rhonchi, wheezes - Cardiovascular Cardiovascular exam: Present: RRR, +S1, +S2. Absent: diastolic murmur, gallop, rubs, systolic murmur - GI/Abdominal GI/Abdominal exam: Present: normal bowel sounds, soft, no peritoneal signs. Absent: distended, tenderness - Extremities Exam Extremities exam: Present: warm, radial pulses palpable and symetrical. Absent : calf tenderness, cyanotic, pedal edema - Neurological Exam Neurological exam: Present: CN II-XII intact, oriented X3, no focal deficits. Absent: pronater drift, facial droop, speech deficit - Skin Skin exam: Present: dry, intact Internal Med - H&P Results - Labs CBC & Chem 7: 02/02/17 11:11 02/02/17 11:11
[2017-02-02] MEDS ORDERED: Warfarin perPT PO PRN (18:00)
[2017-02-02] MEDS: *HR* Dextrose 50 % in Water (Syg) 50 ML SYRINGE IVP PRN (19:30)
[2017-02-02] MEDS: Insulin LISPRO 300 UNITS/3 ML VIAL SQ SCH ×2 (19:31→23:39)
[2017-02-03] MEDS: *HR* Dextrose 50 % in Water (Syg) 50 ML SYRINGE IVP PRN ×2 (03:10→10:07)
[2017-02-03] MEDS: Insulin LISPRO 300 UNITS/3 ML VIAL SQ SCH (06:06)
[2017-02-03 07:38] LABS: Calcium 8.6 mg/dL (8.6-10.8); Potassium 4.4 mEq/L (3.5-4.5)
[2017-02-03] MEDS: Aspirin 81 MG TAB.CHEW PO SCH (07:52)
--- NOTE | 2017-02-03 07:52 | Nephrology Consult Note ---
Date of Encounter: 02/03/17 Time of Encounter: 07:49 Assessment and Plan (1) End stage renal disease Current Visit: No Status: Acute Patient receives dialysis every Saturday. She is stable from a dialysis and renal standpoint. She is not volume overloaded. Vital signs are stable. Potassium is 3.8. Her next dialysis will be tomorrow. Hemoglobin is 8.9. She will be maintained on Aranesp. (2) Hypoglycemia associated with type 2 diabetes mellitus Current Visit: Yes Status: Acute (3) Acute delirium Current Visit: Yes Status: Acute History of Present Illness - History of Present Illness This is a 71-year-old female with end-stage renal disease. She receives dialysis every Saturday in [place]. Patient was recently admitted to the hospital with respiratory failure and volume overload. She underwent daily dialysis and ultrafiltration with good results. She now presents with hypoglycemia and mental status changes thought to be related to narcotic analgesics. The patient is more somnolent than normal. History is obtained from the medical record. From a volume standpoint she seems to be stable. She has no peripheral edema at this time. She seems to be oxygenating well. Past Med Surg Social Fam HX - Past Medical History Medical history: arthritis, atrial fibrillation, cirrhosis, CHF, COPD, diabetes , GERD, hyperlipidemia, hypertension, renal disease, other Psychiatric history: anxiety, panic disorder - Past Surgical History Surgical History: cholecystectomy, hysterectomy - Social History Smoking Status: Never smoker Smokeless Tobacco Status: No Alcohol use: none Drug use: none - Family History Mother History Unknown: Yes Living Status: Hx Family Cardiac Disorders: Yes Hx Family GI Disorders: Yes Hx Family Endocrine Disorder: Yes Father History Unknown: Yes Living Status: Hx Family Cardiac Disorders: Yes Hx Family Cancer: Yes Sister History Unknown: Yes Living Status: Still Living Hx Family Cancer: Yes (Breast Cancer, age 40's) Hx Family Endocrine Disorder: Yes (diabetes mellitus) Brother History Unknown: Yes Living Status: Still Living Hx Family Cardiac Disorders: No Hx Family Respiratory Disorders: No Hx Family Cancer: No Hx Family GI Disorders: No Hx Family Endocrine Disorder: Yes Hx Family Neuromuscular Disorders: No Hx Family Neurologic Disorders: No Hx Family HEENT Disorders: No Hx Family Autoimmune Disorders: No Medications and Allergies Metoprolol [Lopressor] 12.5 mg PO BID 08/14/15 [History] Sertraline [Zoloft] 150 mg PO DAILY 08/14/15 [History] Sucralfate [Carafate] 2 gm PO BID 08/14/15 [History] glipiZIDE [Glucotrol] 10 mg PO BID 08/14/15 [History] Lactulose 10 gm PO QID 06/24/16 [History] Aspirin 81 mg PO DAILY 07/11/16 [History] Fluticasone/Vilanterol [Breo Ellipta 100-25 Mcg INH] 1 puff IH DAILY 07/11/16 [ History] Pantoprazole Sodium [Protonix] 40 mg PO DAILY 07/11/16 [History] Diltiazem [Cardizem] 30 mg PO TID 09/20/16 [History] Gabapentin [Neurontin] 100 mg PO BID 09/20/16 [History] Sennosides [Senna] 17.2 mg PO DAILY 09/20/16 [History] Simethicone [Gas-X] 120 mg PO BID PRN 09/20/16 [History] Insulin ASPART [Novolog Flexpen] 0 - 12 units SQ TID MDD PER SLIDING SCALE 11/13 [History] Folic Acid 1 mg PO DAILY #30 tablet 12/03/16 [Rx] Ferrous Gluconate 324 mg PO TID 01/12/17 [History] Warfarin [Coumadin] 2 mg PO HS 01/12/17 [History] Amino Acids/Protein Hydrolys [Pro-Stat Awc Liquid] 30 ml PO BID 01/28/17 [ History] Ipratropium/Albuterol Neb [Duoneb] 3 ml IH Q6HR PRN 01/28/17 [History] Mupirocin [Bactroban Oint] 1 appl TP MOWEFR 01/28/17 [History] Oxycodone HCl 10 mg PO Q6H PRN 01/28/17 [History] Allergies ceftriaxone [From Rocephin] Allergy (Severe, Verified 01/18/17 06:24) Anaphylaxis Occured at [facility]. Required ICU transfer, intubation, and mechanical ventilation. ciprofloxacin [From Cipro] Allergy (Mild, Verified 01/18/17 06:24) Rash sulfamethoxazole [From Bactrim] Allergy (Verified 01/18/17 06:24) See Comments trimethoprim [From Bactrim] Allergy (Verified 01/18/17 06:24) See Comments rozeta Allergy (Uncoded 01/18/17 06:24) See Comments Review of Systems ROS unobtainable: due to mental status Exam - Vital Signs Vital signs: Initial Vital Signs Temp Pulse Resp BP Pulse Ox 97.8 F 53 18 100/55 100 02/02/17 09:25 02/02/17 09:25 02/02/17 09:25 02/02/17 09:25 02/02/17 09:25 Vital Signs - Last 8 Hours Temp Pulse Resp BP Pulse Ox 02/03/17 07:30 97.5 F L 69 18 100/60 100 02/03/17 03:09 97.6 F 79 16 119/65 97 02/03/17 00:43 97.6 F 71 20 111/67 95 Intake and Output 02/02/17 02/02/17 02/03/17 15:59 23:59 07:59 Other: Weight 84.4 kg 84.4 kg Blood Glucose* 176 105 Patient Weight 02/03/17 23:59 Weight 84.4 kg - General Appearance Exam: Patient is somnolent. She does arouse to verbal stimuli and then drifts back off to sleep. She is afebrile. Blood pressure 119/65. Lungs diminished breath sounds otherwise clear. Heart regular rate and rhythm with a 2/6 ejection murmur. Abdomen is soft. There is no guarding or rigidity. There is no lower extremity swelling. There is an immature fistula in the left arm. There is a tunnel dialysis catheter in the left chest. Results - Lab Results 02/02/17 11:11 02/03/17 06:36 Most recent lab results Calcium 8.6 mg/dL (8.6-10.8) 02/03/17 06:36 Consult Discharge Plan - Plan Referrals: NO,PCP [Primary Care Provider] -
[2017-02-03 07:54] LABS: Basophils % 0.2 %; Eosinophils % 0.2 %; Hematocrit 31.6 % (35.3-44.9); Hemoglobin 9.2 g/dL (11.5-15.4); Immature Granulocytes % 1.7 % (0-4); Lymphocytes # 0.7 K/mcL (0.6-4.6); Lymphocytes % 6.9 %; Mean Corpuscular HGB Conc 29.1 g/dL (31.6-35.5); Mean Corpuscular Hemoglobin 23.4 pg (28.0-33.3); Mean Corpuscular Volume 80.2 fL (83.0-100.0); Mean Platelet Volume 10.1 fL (9.4-12.4); Monocytes % 9.9 %; Neutrophils # 7.8 K/mcL (1.6-8.9); Nucleated Red Blood Cells 0.2 /100 WBC (0); Platelet Count 167 K/mcL (140-400); Red Blood Count 3.94 M/mcL (3.82-4.97); Red Cell Distribution Width 21.1 % (11.5-14.5); Segmented Neutrophils % 81.1 %
[2017-02-03] MEDS ORDERED: Darbepoetin 100 MCG/0.5 ML SYRINGE SQ SCH (08:00)
[2017-02-03] MEDS ORDERED: D5% in Water 1,000 ML IVC SCH (11:00)
[2017-02-03 11:04] LABS: INR 4.9; Prothrombin Time 55.7 Seconds (9.4-12.1)
--- NOTE | 2017-02-03 12:18 | Internal Med Progress Note ---
Date of Encounter: 02/03/17 Time of Encounter: 10:00 - Assessment and plan (1) CHF (congestive heart failure) Current Visit: Yes Status: Acute Assessment and plan: Appears euvolemic now. On hemodialysis, due will be tomorrow Qualifiers: Congestive heart failure type: diastolic Congestive heart failure chronicity: chronic Qualified Code(s): I50.32 - Chronic diastolic (congestive ) heart failure (2) Chronic atrial fibrillation Current Visit: Yes Status: Acute Assessment and plan: Heart rate is well controlled. On Coumadin for anticoagulation (3) End-stage renal disease on hemodialysis Current Visit: Yes Status: Acute Assessment and plan: Continue scheduled hemodialysis (4) Opiate overdose Current Visit: Yes Status: Acute Assessment and plan: Suspected opioid overdose. However now the AMS is more like due to hypoglycemia Qualifiers: Encounter type: initial encounter Injury intent: accidental or unintentional Qualified Code(s): T40.601A - Poisoning by unspecified narcotics , accidental (unintentional), initial encounter (5) DM (diabetes mellitus), type 2 Current Visit: Yes Status: Chronic Assessment and plan: Patient developed hypoglycemia. We will hold DM medication. Closely monitor patient's Glu level and mental status. 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 We will hold her diabetes medication rec now, closely monitor glucose level. D50 IV as needed. Qualifiers: Altered mental status type: delirium Qualified Code(s): R41.0 - Disorientation, unspecified (7) Closed right hip fracture Current Visit: No Status: Acute Assessment and plan: History of hip fracture, orthopedic consulted previously. Conservative treatment Qualifiers: Encounter type: initial encounter Qualified Code(s): S72.001A - Fracture of unspecified part of neck of right femur, initial encounter for closed fracture (8) DVT prophylaxis Current Visit: No Status: Acute Assessment and plan: Patient is on Coumadin (9) LITO on CPAP Current Visit: No Status: Chronic Assessment and plan: Continue BiPAP at during night if patient tolerates (10) Hypoglycemia Current Visit: Yes Status: Acute Assessment and plan: Patient has hypoglycemia. The lever of glucose is a critical. Most likely due to diabetes medication use. - Hold all the diabetes medication at this point - Check her fingerstick every 2 hours to closely monitor glucose level - May further adjust diabetes medications upon discharge Patient is at high risk because her glucose level is a critically low, need close monitoring - Time Spent With Patient Greater than 35 minutes - Subjective Interval history: Patient is a 71-year-old female admitted for altered mental status. Past medical history is significant for end-stage renal disease on hemodialysis, diabetes, CHF, A. fib on Coumadin. Patient was seen and examined. Her mental status has improved but still sleepy. Can be waken up and the patient can communicate well as is she is awake. Overnight hypoglycemia noticed, the lowest sugar level is 15. Patient will be placed on fingerstick every 2 hours and D50 as necessary, hold all insulin and anti-diabetes medication at this point. - Constitutional Vitals: Temp Pulse Resp BP Pulse Ox 97.5 F L 64 14 93/59 90 02/03/17 09:30 02/03/17 09:30 02/03/17 09:30 02/03/17 10:06 02/03/17 09:30 General appearance: Present: cooperative, A&O X 2, answers questions appropriately Exam: Sleepy - Head Head exam: Present: atraumatic, normocephalic - Eye Eye exam: Present: PERRL, conjuntiva pink, sclera anicteric Pupils: Present: PERRL - Neck Neck exam general surgery: Present: supple, trachea midline. Absent: lymphadenopathy - Respiratory Respiratory exam: Present: CTAB. Absent: accessory muscle use, rales, rhonchi, wheezes - Cardiovascular Cardiovascular exam: Present: RRR, +S1, +S2. Absent: diastolic murmur, gallop, rubs, systolic murmur - GI/Abdominal GI/Abdominal exam: Present: normal bowel sounds, soft, no peritoneal signs. Absent: distended, tenderness - Extremities Exam Extremities exam: Present: warm, radial pulses palpable and symetrical. Absent : calf tenderness, cyanotic, pedal edema - Neurological Exam Neurological exam: Present: CN II-XII intact, oriented X3, no focal deficits. Absent: pronater drift, facial droop, speech deficit - Skin Skin exam: Present: dry, intact Internal Medicine: Result - Labs CBC & Chem 7: 02/03/17 06:36 02/03/17 06:36 - ABG Interpretation ABG results: PT/INR, D-dimer PT 55.7 Seconds (9.4-12.1) H* 02/03/17 09:35 Consult Discharge Plan - Plan Referrals: NO,PCP [Primary Care Provider] -
[2017-02-03] MEDS: Acetaminophen 325 MG TABLET PO PRN (14:27)
--- NOTE | 2017-02-03 14:30 | Electrocardiograph Report ---
[address] [place], [place] [address] Test Date: 2017-02-02 Pat Name: Jaimee Rodriguez Department: 105 Room: 2A43 Gender: F Support Analyst: : 1945 Requested By: Omid Santiago Order Number: [id number] Reading MD: Gail Desir Measurements Intervals [place] Rate: 61 P: [place]: 0 QRS: 6 QRSD: 106 T: 72 QT: 436 QTc: 440 Interpretive Statements ATRIAL FIBRILLATION LOW QRS VOLTAGE IN EXTREMITY LEADS NONSPECIFIC ST ABNORMALITIES Electronically Signed On 02-03-2017 14:29:01 EDT by Gail Desir
[2017-02-03] MEDS: Chloraseptic Spray 177 ML BOTTLE MM PRN (15:13)
[2017-02-04] MEDS: Acetaminophen 325 MG TABLET PO PRN ×2 (00:51→17:48)
[2017-02-04] MEDS ORDERED: Ketorolac 15 MG/ML VIAL IVP ONE (02:57)
[2017-02-04 04:55] LABS: Hemoglobin 9.4 g/dL (11.5-15.4); Immature Granulocytes % 0.9 % (0-4); Lymphocytes % 5.4 %; Red Cell Distribution Width 21.2 % (11.5-14.5)
[2017-02-04 04:57] LABS: Basophils % 0.1 %; Eosinophils % 1.2 %; Hematocrit 32.2 % (35.3-44.9); Lymphocytes # 0.7 K/mcL (0.6-4.6); Mean Corpuscular HGB Conc 29.2 g/dL (31.6-35.5); Mean Corpuscular Hemoglobin 23.6 pg (28.0-33.3); Mean Corpuscular Volume 80.7 fL (83.0-100.0); Mean Platelet Volume 8.9 fL (9.4-12.4); Monocytes % 8.7 %; Platelet Count 177 K/mcL (140-400); Red Blood Count 3.99 M/mcL (3.82-4.97); Segmented Neutrophils % 83.7 %
[2017-02-04 04:58] LABS: Eosinophils # 0.1 K/mcL (0.0-0.6)
[2017-02-04 05:09] LABS: Albumin 2.3 g/dL (3.5-5.0); Albumin/Globulin Ratio 0.7 (1.1-2.2); Bilirubin,Total 0.6 mg/dL (0.2-1.2); Calcium 8.7 mg/dL (8.6-10.8); Globulin 3.1 g/dL (2.4-3.5); Potassium 4.4 mEq/L (3.5-4.5); Total Protein 5.4 g/dL (6.0-8.3)
[2017-02-04 05:35] LABS: Anisocytosis 3+ (Not Present); Hypochromasia Present (Not Present); Microcytosis Present (Not Present); Platelet Estimate Normal (Normal); Polychromasia 1+ (Not Present); Reactive Lymphocytes Present (Not Present)
[2017-02-04] MEDS ORDERED: 0.9 % Sodium Chloride 250 ML IVC PRN (09:04)
--- NOTE | 2017-02-04 09:06 | Nephrology Progress Note ---
Date of Encounter: 02/04/17 Time of Encounter: 09:03 - Assessment and Plan (1) End stage renal disease Current Visit: No Status: Acute Clinically the patient is improved. She will undergo her usual dialysis today. She is stable from a renal perspective. (2) Hypoglycemia associated with type 2 diabetes mellitus Current Visit: Yes Status: Acute (3) Acute delirium Current Visit: Yes Status: Acute Subjective Interval history: Patient is alert and oriented. She says overall she is feeling better. She is sitting on the edge of the bed eating breakfast. Her only complaint is that of some hip pain. She denies any shortness of breath. Objective - Vital Signs Vital signs: Vital Signs Temp Pulse Resp BP Pulse Ox 02/04/17 07:18 98.9 F 68 19 146/64 3 02/04/17 03:08 98.8 F 73 20 126/69 94 02/03/17 23:05 98.9 F 76 18 135/77 98 02/03/17 20:34 98.3 F 80 18 124/73 92 02/03/17 15:48 98.3 F 84 16 120/67 100 02/03/17 13:50 97.8 F 79 16 93/54 98 02/03/17 11:45 97.6 F 65 16 124/76 99 Intake and Output 02/03/17 02/04/17 02/04/17 23:59 07:59 15:59 Intake Total 400 / 400 240 / 240 Output Total 175 / 175 Balance 225 / 225 240 / 240 Intake: Oral 400 / 400 240 / 240 Output: Urine 75 / 75 Catheter 100 / 100 Other: Meal Dinner Breakfast Percent of Meal Consumed 100% 50% Weight 83.4 kg Blood Glucose* 90 121 Patient Weight 02/04/17 23:59 Weight 83.4 kg - Lab 02/04/17 04:31 02/04/17 04:31 Most recent lab results Calcium 8.7 mg/dL (8.6-10.8) 02/04/17 04:31 Consult Discharge Plan - Plan Referrals: NO,PCP [Primary Care Provider] -
[2017-02-04 09:46] LABS: INR 3.6; Prothrombin Time 40.6 Seconds (9.4-12.1)
[2017-02-04] MEDS: Aspirin 81 MG TAB.CHEW PO SCH (14:25)
[2017-02-04] MEDS: Chloraseptic Spray 177 ML BOTTLE MM PRN (14:29)
--- NOTE | 2017-02-04 17:34 | Internal Med Progress Note ---
Date of Encounter: 02/04/17 Time of Encounter: 10:00 - Assessment and plan (1) CHF (congestive heart failure) Current Visit: Yes Status: Acute Assessment and plan: Appears euvolemic now. On hemodialysis Qualifiers: Congestive heart failure type: diastolic Congestive heart failure chronicity: chronic Qualified Code(s): I50.32 - Chronic diastolic (congestive ) heart failure (2) Chronic atrial fibrillation Current Visit: Yes Status: Acute Assessment and plan: Heart rate is well controlled. On Coumadin for anticoagulation (3) End-stage renal disease on hemodialysis Current Visit: Yes Status: Acute Assessment and plan: Continue scheduled hemodialysis (4) Opiate overdose Current Visit: Yes Status: Acute Assessment and plan: Suspected opioid overdose. However now the AMS is more like due to hypoglycemia. Cont hold pain med, place lidocaine patch for pain. Qualifiers: Encounter type: initial encounter Injury intent: accidental or unintentional Qualified Code(s): T40.601A - Poisoning by unspecified narcotics , accidental (unintentional), initial encounter (5) DM (diabetes mellitus), type 2 Current Visit: Yes Status: Chronic Assessment and plan: Patient developed hypoglycemia. We will hold DM medication. Closely monitor patient's Glu level and mental status. Goal of Glu 150-200 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 mellitus intermediate insulin use: with electrician supervisor use Chronic kidney disease stage: on chronic dialysis Qualified Code(s): E11.22 - Type 2 diabetes mellitus with diabetic chronic kidney disease; N18.6 - End stage renal disease; Z79.4 - senior living (current) use of insulin; Z99.2 - Dependence on renal dialysis (6) Altered mental status Current Visit: No Status: Acute Assessment and plan: Likely due to hypoglycemia. We will hold her diabetes medication right now, closely monitor glucose level. D50 IV as needed. Qualifiers: Altered mental status type: delirium Qualified Code(s): R41.0 - Disorientation, unspecified (7) Closed right hip fracture Current Visit: No Status: Acute Assessment and plan: History of hip fracture, orthopedic consulted previously. Conservative treatment Qualifiers: Encounter type: initial encounter Qualified Code(s): S72.001A - Fracture of unspecified part of neck of right femur, initial encounter for closed fracture (8) DVT prophylaxis Current Visit: No Status: Acute Assessment and plan: Patient is on Coumadin (9) LITO on CPAP Current Visit: No Status: Chronic Assessment and plan: Continue BiPAP at during night if patient tolerates (10) Hypoglycemia Current Visit: Yes Status: Acute Assessment and plan: Patient has hypoglycemia. The lever of glucose is a critical. Most likely due to diabetes medication use. - Improved now - Cont hold all the diabetes medication at this point - Check her fingerstick every 4 hours to closely monitor glucose level - May further adjust diabetes medications upon discharge - Time Spent With Patient 25 - 35 minutes - Subjective Interval history: Patient is a 71-year-old female admitted for altered mental status. Past medical history is significant for end-stage renal disease on hemodialysis, diabetes, CHF, A. fib on Coumadin. Patient was seen and examined. Her mental status has improved to her baseline. No further hypoglycemia episode over last 24 hours. On DM diet, cont hold insulin and anti-DM med. Check Glu every 4 hours. Will have HD today. - Constitutional Vitals: Temp Pulse Resp BP Pulse Ox 98.7 F 75 24 144/77 97 02/04/17 15:46 02/04/17 15:46 02/04/17 15:46 02/04/17 15:46 02/04/17 15:46 General appearance: Present: cooperative, A&O X 3, answers questions appropriately - Head Head exam: Present: atraumatic, normocephalic - Eye Eye exam: Present: PERRL, conjuntiva pink, sclera anicteric Pupils: Present: PERRL - Neck Neck exam general surgery: Present: supple, trachea midline. Absent: lymphadenopathy - Respiratory Respiratory exam: Present: CTAB. Absent: accessory muscle use, rales, rhonchi, wheezes - Cardiovascular Cardiovascular exam: Present: RRR, +S1, +S2. Absent: diastolic murmur, gallop, rubs, systolic murmur - GI/Abdominal GI/Abdominal exam: Present: normal bowel sounds, soft, no peritoneal signs. Absent: distended, tenderness - Extremities Exam Extremities exam: Present: warm, radial pulses palpable and symetrical. Absent : calf tenderness, cyanotic, pedal edema - Neurological Exam Neurological exam: Present: CN II-XII intact, oriented X3, no focal deficits. Absent: pronater drift, facial droop, speech deficit - Skin Skin exam: Present: dry, intact Internal Medicine: Result - Labs CBC & Chem 7: 02/04/17 04:31 02/04/17 04:31 Labs: Short CBC 02/04/17 Range/Units 04:31 WBC 12.0 H (4.3-11.1) K/mcL Hgb 9.4 L (11.5-15.4) g/dL Hct 32.2 L (35.3-44.9) % Plt Count 177 (140-400) K/mcL Neutrophils # 10.0 H (1.6-8.9) K/mcL BMP 02/04/17 04:31 Sodium 130 L Potassium 4.4 Chloride 98 Carbon Dioxide 24 BUN 32 H Creatinine 4.17 H Glucose 167 H Calcium 8.7 Liver Function 02/04/17 Range/Units 04:31 Total Bilirubin 0.6 (0.2-1.2) mg/dL AST 10 (5-34) Units/L ALT 7 (0-55) Units/L Alkaline Phosphatase 138 H (38-126) Units/L Albumin 2.3 L (3.5-5.0) g/dL - ABG Interpretation ABG results: PT/INR, D-dimer PT 40.6 Seconds (9.4-12.1) H 02/04/17 09:26 Consult Discharge Plan - Plan Referrals: NO,PCP [Primary Care Provider] - (Patient is from [facility])
[2017-02-05] MEDS ORDERED: Mag Hydrox/Al Hydrox/Simeth 30 ML UDC PO ONE (01:12)
[2017-02-05] MEDS: Acetaminophen 325 MG TABLET PO PRN (01:24)
[2017-02-05 06:16] LABS: Basophils % 0.2 %; Eosinophils # 0.2 K/mcL (0.0-0.6); Eosinophils % 1.9 %; Hematocrit 32.8 % (35.3-44.9); Hemoglobin 9.6 g/dL (11.5-15.4); Immature Granulocytes % 0.8 % (0-4); Lymphocytes # 0.9 K/mcL (0.6-4.6); Lymphocytes % 9.8 %; Mean Corpuscular HGB Conc 29.3 g/dL (31.6-35.5); Mean Corpuscular Hemoglobin 23.6 pg (28.0-33.3); Mean Corpuscular Volume 80.8 fL (83.0-100.0); Mean Platelet Volume 9.3 fL (9.4-12.4); Monocytes # 1.2 K/mcL (0.0-1.3); Neutrophils # 7.2 K/mcL (1.6-8.9); Platelet Count 190 K/mcL (140-400); Red Blood Count 4.06 M/mcL (3.82-4.97); Red Cell Distribution Width 21.2 % (11.5-14.5); Segmented Neutrophils % 75.3 %
[2017-02-05 06:20] LABS: INR 2.1; Prothrombin Time 22.7 Seconds (9.4-12.1)
[2017-02-05 06:27] LABS: Calcium 8.6 mg/dL (8.6-10.8); Potassium 4.8 mEq/L (3.5-4.5)
--- NOTE | 2017-02-05 07:57 | Nephrology Progress Note ---
Date of Encounter: 02/05/17 Time of Encounter: 07:53 - Assessment and Plan (1) End stage renal disease Current Visit: No Status: Acute The patient is stable from a renal perspective. She will continue to undergo dialysis every Saturday. (2) Hypoglycemia associated with type 2 diabetes mellitus Current Visit: Yes Status: Acute (3) Acute delirium Current Visit: Yes Status: Acute Subjective Interval history: The patient denies any new complaints. She continues to have some underlying shortness of breath as well as some hip pain. She received dialysis yesterday. Objective - Vital Signs Vital signs: Vital Signs Temp Pulse Resp BP Pulse Ox 02/05/17 07:50 97.9 F 64 26 143/73 94 02/05/17 03:56 97.9 F 63 16 134/50 97 02/05/17 00:42 98.1 F 58 16 148/72 98 02/04/17 22:25 97 02/04/17 19:34 98.7 F 74 17 121/67 98 02/04/17 15:46 98.7 F 75 24 144/77 97 02/04/17 13:37 97.5 F L 18 138/62 02/04/17 12:40 121/52 02/04/17 12:30 129/82 02/04/17 12:15 152/62 02/04/17 12:00 131/61 02/04/17 11:45 131/61 02/04/17 11:30 132/55 02/04/17 11:15 139/64 02/04/17 11:00 111/69 02/04/17 10:45 105/67 02/04/17 10:30 130/71 02/04/17 10:15 127/64 02/04/17 10:00 98.0 F 20 129/78 02/04/17 09:32 3 Intake and Output 02/04/17 02/04/17 02/05/17 15:59 23:59 07:59 Intake Total 840 / 840 Output Total 3300 / 3300 Balance -2460 / -2460 Intake: Oral 240 / 240 Intake, Rinseback and 600 / 600 Flushes Output: Urine 0 / 0 Total Dialysis (HD) 3300 / 3300 Output Other: Meal Breakfast Percent of Meal Consumed 50% Weight 83.7 kg Blood Glucose* 221 129 Hemodialysis Net Fluid 2700 Removed (mL) Patient Weight 02/05/17 23:59 Weight 83.7 kg - General Appearance Exam: The patient is alert and oriented. She is in no acute distress. Lungs sounds. Heart irregular rate and rhythm. Abdomen is benign. There is minimal lower extremity swelling. There is an immature fistula in the left upper extremity in a tunnel dialysis catheter in the left chest. - Lab 02/05/17 06:09 02/05/17 06:09 Most recent lab results Calcium 8.6 mg/dL (8.6-10.8) 02/05/17 06:09 Consult Discharge Plan - Plan Referrals: NO,PCP [Primary Care Provider] - (Patient is from [facility])
[2017-02-05] MEDS: Aspirin 81 MG TAB.CHEW PO SCH (09:20)
[2017-02-05] MEDS: valACYclovir 500 MG TABLET PO SCH (10:24)
[2017-02-05] MEDS ORDERED: Simethicone 80 MG TAB.CHEW PO PRN (11:22)
[2017-02-05] MEDS ORDERED: Insulin LISPRO 300 UNITS/3 ML VIAL SQ SCH (11:30)
[2017-02-05] MEDS: *HR* OxyCODONE Immed Rel 5 MG TABLET PO PRN ×2 (11:33→19:03)
[2017-02-05] MEDS: Lactulose Oral Soln 20 GM/30 ML UDC PO SCH ×3 (12:04→21:41)
[2017-02-05] MEDS: Sennosides 8.6 MG TABLET PO SCH (12:08)
[2017-02-05] MEDS: Insulin LISPRO 300 UNITS/3 ML VIAL SQ SCH ×2 (12:08→16:38)
[2017-02-05] MEDS: Gabapentin 100 MG CAPSULE PO SCH ×2 (12:14→21:41)
[2017-02-05] MEDS: *HR* Warfarin 2 MG TABLET PO SCH (17:11)
--- NOTE | 2017-02-05 19:00 | Internal Med Progress Note ---
Date of Encounter: 02/05/17 Time of Encounter: 10:00 - Assessment and plan (1) CHF (congestive heart failure) Current Visit: Yes Status: Acute Assessment and plan: Appears euvolemic now. On hemodialysis Qualifiers: Congestive heart failure type: diastolic Congestive heart failure chronicity: chronic Qualified Code(s): I50.32 - Chronic diastolic (congestive ) heart failure (2) Chronic atrial fibrillation Current Visit: Yes Status: Acute Assessment and plan: Heart rate is well controlled. On Coumadin for anticoagulation (3) End-stage renal disease on hemodialysis Current Visit: Yes Status: Acute Assessment and plan: Continue scheduled hemodialysis (4) Opiate overdose Current Visit: Yes Status: Acute Assessment and plan: Suspected opioid overdose. However now the AMS is more like due to hypoglycemia. Resume pain med at low dose, place lidocaine patch for pain. Qualifiers: Encounter type: initial encounter Injury intent: accidental or unintentional Qualified Code(s): T40.601A - Poisoning by unspecified narcotics , accidental (unintentional), initial encounter (5) DM (diabetes mellitus), type 2 Current Visit: Yes Status: Chronic Assessment and plan: Patient developed hypoglycemia. We will closely monitor patient's Glu level and mental status. Start customized sliding scale for AC only. 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 We will hold her diabetes medication right now, closely monitor glucose level. D50 IV as needed. Qualifiers: Altered mental status type: delirium Qualified Code(s): R41.0 - Disorientation, unspecified (7) Closed right hip fracture Current Visit: No Status: Acute Assessment and plan: History of hip fracture, orthopedic consulted previously. Conservative treatment Qualifiers: Encounter type: initial encounter Qualified Code(s): S72.001A - Fracture of unspecified part of neck of right femur, initial encounter for closed fracture (8) DVT prophylaxis Current Visit: No Status: Acute Assessment and plan: Patient is on Coumadin (9) LITO on CPAP Current Visit: No Status: Chronic Assessment and plan: Continue BiPAP at during night if patient tolerates (10) Hypoglycemia Current Visit: Yes Status: Acute Assessment and plan: Patient has hypoglycemia. The lever of glucose is a critical. Most likely due to diabetes medication use. - Improved now - Customized sliding scale with meals only, hold bed time dose. - Check her fingerstick ACHS to closely monitor glucose level - May further adjust diabetes medications upon discharge - Time Spent With Patient 25 - 35 minutes - Subjective Interval history: Patient is a 71-year-old female admitted for altered mental status. Past medical history is significant for end-stage renal disease on hemodialysis, diabetes, CHF, A. fib on Coumadin. Patient was seen and examined. Her mental status has improved to her baseline. No further hypoglycemia episode over last 24 hours. On DM diet, Place customized sliding scale with AC only, hold HS dose. Pt c/o left chest wall sharp pain with hypersensitivity on touch. Along nerve distribution, not cross midline. Suspect Shingles, However, no rashes seen. Will empirically place valacyclovir 500mg po daily (renal dose), if still no rashes tomorrow, will rule out shingles and d/c valacyclovir. - Constitutional Vitals: Temp Pulse Resp BP Pulse Ox 98.2 F 67 16 134/66 95 02/05/17 16:03 02/05/17 16:03 02/05/17 16:03 02/05/17 16:03 02/05/17 16:03 General appearance: Present: cooperative, A&O X 3, answers questions appropriately - Head Head exam: Present: atraumatic, normocephalic - Eye Eye exam: Present: PERRL, conjuntiva pink, sclera anicteric Pupils: Present: PERRL - Neck Neck exam general surgery: Present: supple, trachea midline. Absent: lymphadenopathy - Respiratory Respiratory exam: Present: CTAB. Absent: accessory muscle use, rales, rhonchi, wheezes - Cardiovascular Cardiovascular exam: Present: RRR, +S1, +S2. Absent: diastolic murmur, gallop, rubs, systolic murmur - GI/Abdominal GI/Abdominal exam: Present: normal bowel sounds, soft, no peritoneal signs. Absent: distended, tenderness - Extremities Exam Extremities exam: Present: warm, radial pulses palpable and symetrical. Absent : calf tenderness, cyanotic, pedal edema - Neurological Exam Neurological exam: Present: CN II-XII intact, oriented X3, no focal deficits. Absent: pronater drift, facial droop, speech deficit - Skin Skin exam: Present: dry, intact Internal Medicine: Result - Labs CBC & Chem 7: 02/05/17 06:09 02/05/17 06:09 Labs: Short CBC 02/05/17 Range/Units 06:09 WBC 9.6 (4.3-11.1) K/mcL Hgb 9.6 L (11.5-15.4) g/dL Hct 32.8 L (35.3-44.9) % Plt Count 190 (140-400) K/mcL Neutrophils # 7.2 (1.6-8.9) K/mcL BMP 02/05/17 06:09 Sodium 130 L Potassium 4.8 H Chloride 96 L Carbon Dioxide 26 BUN 25 H Creatinine 3.37 H Glucose 90 Calcium 8.6 - ABG Interpretation ABG results: PT/INR, D-dimer PT 22.7 Seconds (9.4-12.1) H 02/05/17 06:09 Consult Discharge Plan - Plan Referrals: NO,PCP [Primary Care Provider] - (Patient is from [facility])
[2017-02-06 04:56] LABS: INR 1.7; Prothrombin Time 19.1 Seconds (9.4-12.1)
[2017-02-06 05:02] LABS: Alanine Aminotransferase < 6 Units/L (0-55); Albumin 2.3 g/dL (3.5-5.0); Albumin/Globulin Ratio 0.7 (1.1-2.2); Alkaline Phosphatase 139 Units/L (38-126); Aspartate Amino Transferase 9 Units/L (5-34); BUN/Creatinine Ratio 8 (6-26); Bilirubin,Total 0.5 mg/dL (0.2-1.2); Blood Urea Nitrogen 34 mg/dL (7-20); Calcium 8.7 mg/dL (8.6-10.8); Carbon Dioxide 25 mEq/L (19-29); Chloride 95 mEq/L (98-109); Globulin 3.3 g/dL (2.4-3.5); Glucose 120 mg/dL (70-99); Osmolality,Calculated 273 (280-300); Sodium 127 mEq/L (136-145); Total Protein 5.6 g/dL (6.0-8.3); eGFR For African Americans 13 (> 60); eGFR For Non-African Americans 11 (> 60)
[2017-02-06 05:13] LABS: Basophils % 0.2 %; Eosinophils % 1.8 %; Immature Granulocytes % 0.8 % (0-4)
[2017-02-06 05:15] LABS: Eosinophils # 0.2 K/mcL (0.0-0.6); Hematocrit 32.4 % (35.3-44.9); Hemoglobin 9.4 g/dL (11.5-15.4); Lymphocytes % 10.9 %; Mean Corpuscular Hemoglobin 23.5 pg (28.0-33.3); Mean Platelet Volume 9.3 fL (9.4-12.4); Monocytes # 1.2 K/mcL (0.0-1.3); Monocytes % 12.7 %; Neutrophils # 6.7 K/mcL (1.6-8.9); Platelet Count 193 K/mcL (140-400); Red Cell Distribution Width 20.8 % (11.5-14.5); Segmented Neutrophils % 73.6 %
[2017-02-06 07:15] LABS: Hypochromasia Present (Not Present); Polychromasia 1+ (Not Present)
[2017-02-06 07:16] LABS: Anisocytosis 1+ (Not Present); Large Platelets Present (Not Present); Microcytosis Present (Not Present); Platelet Estimate Normal (Normal)
[2017-02-06 07:17] LABS: Poikilocytosis 2+ (Not Present)
[2017-02-06] MEDS: *HR* OxyCODONE Immed Rel 5 MG TABLET PO PRN ×2 (08:41→17:12)
[2017-02-06] MEDS: Lactulose Oral Soln 20 GM/30 ML UDC PO SCH ×3 (08:41→17:13)
[2017-02-06] MEDS: Gabapentin 100 MG CAPSULE PO SCH (08:42)
[2017-02-06] MEDS: Aspirin 81 MG TAB.CHEW PO SCH (08:42)
[2017-02-06] MEDS: Sennosides 8.6 MG TABLET PO SCH (08:42)
[2017-02-06] MEDS: valACYclovir 500 MG TABLET PO SCH (08:42)
[2017-02-06] MEDS: Insulin LISPRO 300 UNITS/3 ML VIAL SQ SCH ×3 (08:43→17:16)
[2017-02-06] MEDS ORDERED: *HR* Heparin 10,000 UNIT/10 ML VIAL IV PRN (12:14)
[2017-02-06] MEDS ORDERED: 0.9 % Sodium Chloride 250 ML IVC PRN (12:14)
[2017-02-06] MEDS ORDERED: 0.9 % Sodium Chloride 1,000 ML PRIME SCH (12:15)
--- NOTE | 2017-02-06 12:44 | Nephrology Progress Note ---
Date of Encounter: 02/06/17 Time of Encounter: 12:30 - Assessment and Plan (1) End-stage renal disease Current Visit: No Status: Acute HD today, keeping MWF schedule. Orders given. Subjective Interval history: Sitting on edge of bed, eating lunch. States feels good. Thinks being discharged this afternoon to [facility] Objective - Vital Signs Vital signs: Vital Signs Temp Pulse Resp BP Pulse Ox 02/06/17 11:33 98.4 F 72 22 121/71 99 02/06/17 08:10 98.3 F 72 20 147/70 93 02/06/17 04:03 98.7 F 66 16 109/69 97 02/05/17 23:47 98.3 F 60 16 118/74 97 02/05/17 22:18 98 02/05/17 19:35 98.8 F 61 16 116/71 98 02/05/17 16:03 98.2 F 67 16 134/66 95 Intake and Output 02/05/17 02/06/17 02/06/17 23:59 07:59 15:59 Intake Total 597 / 597 400 / 400 Balance 597 / 597 400 / 400 Intake: Oral 597 / 597 400 / 400 Other: Meal Dinner Breakfast Percent of Meal Consumed 100% 80% Weight 83.1 kg 83.1 kg Blood Glucose* 171 121 236 Patient Weight 02/06/17 23:59 Weight 83.1 kg - General Appearance General appearance: Present: well-developed, well-nourished, appears started age , obese EENT: Present: mucous membranes moist Neck: Present: no JVD Respiratory: Present: clear Cardiology: Present: no edema, regular rate, regular rhythm Gastrointestinal: Present: normoactive bowel sounds, no tenderness Integumentary: Present: warm and dry Neurologic: Present: alert and oriented x3 Psychiatric: Present: mood/affect appropriate, cooperative - Lab 02/06/17 03:54 02/06/17 03:54 Most recent lab results Calcium 8.7 mg/dL (8.6-10.8) 02/06/17 03:54 Consult Discharge Plan - Plan Referrals: NO,PCP [Primary Care Provider] - (Patient is from [facility])
--- NOTE | 2017-02-06 13:22 | Discharge Summary ---
Date of Encounter: 02/06/17 Time of Encounter: 12:00 - Discharge Diagnosis (1) CHF (congestive heart failure) Priority: Secondary Status: Acute Qualifiers: Congestive heart failure type: diastolic Congestive heart failure chronicity: chronic Qualified Code(s): I50.32 - Chronic diastolic (congestive ) heart failure (2) Chronic atrial fibrillation Priority: Secondary Status: Acute (3) End-stage renal disease on hemodialysis Priority: Secondary Status: Acute (4) Opiate overdose Priority: Primary Status: Acute Qualifiers: Encounter type: initial encounter Injury intent: accidental or unintentional Qualified Code(s): T40.601A - Poisoning by unspecified narcotics , accidental (unintentional), initial encounter (5) DM (diabetes mellitus), type 2 Priority: Secondary Status: Chronic 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 mellitus penitentiary insulin use: with watermaster use Chronic kidney disease stage: on chronic dialysis Qualified Code(s): E11.22 - Type 2 diabetes mellitus with diabetic chronic kidney disease; N18.6 - End stage renal disease; Z79.4 - retirement (current) use of insulin; Z99.2 - Dependence on renal dialysis (6) Altered mental status Priority: Primary Status: Acute Qualifiers: Altered mental status type: delirium Qualified Code(s): R41.0 - Disorientation, unspecified (7) Closed right hip fracture Priority: Secondary Status: Acute Qualifiers: Encounter type: initial encounter Qualified Code(s): S72.001A - Fracture of unspecified part of neck of right femur, initial encounter for closed fracture (8) DVT prophylaxis Priority: Secondary Status: Acute (9) LITO on CPAP Priority: Secondary Status: Chronic (10) Hypoglycemia Priority: Primary Status: Acute - Discharge Medications Prescriptions: OxyCODONE Immed Rel [Roxicodone 5 MG] 5 mg PO Q6HR PRN #16 tablet PRN Reason: moderate to severe pain Lidocaine Patch [Lidoderm 5% patch] 1 each TP DAILY #6 adh..patch Home Medications: Metoprolol [Lopressor] 12.5 mg PO BID 08/14/15 [History] Sertraline [Zoloft] 150 mg PO DAILY 08/14/15 [History] Sucralfate [Carafate] 2 gm PO BID 08/14/15 [History] Lactulose 10 gm PO QID 06/24/16 [History] Aspirin 81 mg PO DAILY 07/11/16 [History] Fluticasone/Vilanterol [Breo Ellipta 100-25 Mcg INH] 1 puff IH DAILY 07/11/16 [ History] Pantoprazole Sodium [Protonix] 40 mg PO DAILY 07/11/16 [History] Diltiazem [Cardizem] 30 mg PO TID 09/20/16 [History] Gabapentin [Neurontin] 100 mg PO BID 09/20/16 [History] Sennosides [Senna] 17.2 mg PO DAILY 09/20/16 [History] Simethicone [Gas-X] 120 mg PO BID PRN 09/20/16 [History] Folic Acid 1 mg PO DAILY #30 tablet 12/03/16 [Rx] Ferrous Gluconate 324 mg PO TID 01/12/17 [History] Warfarin [Coumadin] 2 mg PO HS 01/12/17 [History] Amino Acids/Protein Hydrolys [Pro-Stat Awc Liquid] 30 ml PO BID 01/28/17 [ History] Ipratropium/Albuterol Neb [Duoneb] 3 ml IH Q6HR PRN 01/28/17 [History] Mupirocin [Bactroban Oint] 1 appl TP [id number] 01/28/17 [History] Insulin ASPART [Novolog Flexpen] 0 - 10 units SQ TID #1 MDD PER SLIDING SCALE 02/06/17 [Rx] Lidocaine Patch [Lidoderm 5% patch] 1 each TP DAILY #6 adh..patch 02/06/17 [Rx] OxyCODONE Immed Rel [Roxicodone 5 MG] 5 mg PO Q6HR PRN #16 tablet 02/06/17 [Rx] Allergies/Adverse Reactions: Allergies ceftriaxone [From Rocephin] Allergy (Severe, Verified 01/18/17 06:24) Anaphylaxis Occured at [facility]. Required ICU transfer, intubation, and mechanical ventilation. ciprofloxacin [From Cipro] Allergy (Mild, Verified 01/18/17 06:24) Rash sulfamethoxazole [From Bactrim] Allergy (Verified 01/18/17 06:24) See Comments trimethoprim [From Bactrim] Allergy (Verified 01/18/17 06:24) See Comments rozeta Allergy (Uncoded 01/18/17 06:24) See Comments - Notes to Outpatient Provider 1. Patient had low Glu level, will discontinue her po Glipizide, please closely monitor her glucose level, cautiously give insulin. Her insulin now in hospital is: Sliding scale: 181-220 mg/dl 2 Units SQ 221-260mg/Dl 4 Units SQ 261-300mg/dL 6 units SQ 301-350mg/dL 8 Units SQ 351-400mg/dL 10 units SQ Use for three meals only, no bed time dose. Date of admission: 02/03/17 11:03 Primary care physician: PCP NO Consults: 02/04/17 09:15 Consult to Dialysis [CONS] ONCE 02/04/17 11:53 Consult to Occupational Therapy [CONS] Routine Comment: Evaluate, develop and implement POC Reason for Consult: Evaluate, develop and implement POC Consult to Physical Therapy [CONS] Routine Comment: Evaluate, develop and implement POC Reason for Consult: Evaluate, develop and implement POC 02/06/17 12:15 Consult to Dialysis [CONS] ONCE Discharging clinician: Brain Batres Anticipated date of discharge: 02/06/17 - Patient Status Disposition: Transfer SNF Condition: Fair Overall status at discharge: patient is back to baseline - Discharge Instructions Follow Up With: NO,PCP [Primary Care Provider] - (Patient is from [facility]) - Diet and Activity Activity: as per physical therapy Diet: diabetic diet, other (Renal diet) Interval History: Ms. Rodriguez is a 71 year old female sent to ER from group home for altered mental status. When I saw pt, she is sedated by ativan given in ER. Hx is obtained from pt's daughter. I know pt because she was admitted several days ago for fluid overload and was taken care by me. As per pt's daughter, she was found hypoglycemia last night with Glu at 30s, which was corrected by giving glu in NH. However, this morning, pt was found nonresponsive in NH, Glu is recheck, reportly "high", but don't know the number. Pt was sent to ER and Glu is 87 upon arrival. Pt also is on pain medication oxycodone for hip pain (has fracture, on conservative management). She was considered opiod overdose and was given Narcan 0.4mg. After narcan, she was wake up but agitated, ER gave her ativan 0.5mg iv x 2 and she is sleeping now. Denies fall. Pt was admitted for further management. Hospital course: Ms. Rodriguez is a 71 year old female admitted for altered mental status. She was found severe hypoglycemia during hospitalization, with a glucose level low to 15. She was a hold on all the diabetes medication, closely monitor glucose level. After treatment, her mental status came back to her baseline. She was placed back on low-dose insulin again, no further hypoglycemia developed. Patient will discharge back to group home after dialysis today. I saw and examined the patient today. She is awake alert, oriented 3. Vitals are stable. Previously complained left chest wall pain has subsided, no rash present, Shingles has been ruled out, will D/C valacyclovir. Patient will transfer back to group home after today's dialysis and continue care in [place]. - Time Spent with Patient Total time spent providing and/or coordinating discharge services: 40 min Greater than 30 minutes - Constitutional Vitals: Temp Pulse Resp BP Pulse Ox 98.4 F 72 22 121/71 99 02/06/17 11:33 02/06/17 11:33 02/06/17 11:33 02/06/17 11:33 02/06/17 11:33 General appearance: Present: cooperative, A&O X 3, answers questions appropriately - Head Head exam: Present: atraumatic, normocephalic - Eye Eye exam: Present: PERRL, conjuntiva pink, sclera anicteric Pupils: Present: PERRL - Neck Neck exam general surgery: Present: supple, trachea midline. Absent: lymphadenopathy - Respiratory Respiratory exam: Present: CTAB. Absent: accessory muscle use, rales, rhonchi, wheezes - Cardiovascular Cardiovascular exam: Present: RRR, +S1, +S2. Absent: diastolic murmur, gallop, rubs, systolic murmur - GI/Abdominal GI/Abdominal exam: Present: normal bowel sounds, soft, no peritoneal signs. Absent: distended, tenderness - Extremities Exam Extremities exam: Present: pedal edema (Mild pedal edema bilaterally), warm, radial pulses palpable and symetrical. Absent: calf tenderness, cyanotic - Neurological Exam Neurological exam: Present: CN II-XII intact, oriented X3, no focal deficits. Absent: pronater drift, facial droop, speech deficit - Skin Skin exam: Present: dry, intact
--- NOTE | 2017-02-06 14:13 | Physician Discharge Referral ---
[facility]Care Referral Info Transfer To: F Provider in Charge after Transfer: Other - Diagnosis (1) CHF (congestive heart failure) Status: Acute (2) Chronic atrial fibrillation Status: Acute (3) End-stage renal disease on hemodialysis Status: Acute (4) Opiate overdose Status: Acute (5) DM (diabetes mellitus), type 2 Status: Chronic (6) Altered mental status Status: Acute (7) Closed right hip fracture Status: Acute (8) DVT prophylaxis Status: Acute (9) LITO on CPAP Status: Chronic (10) Hypoglycemia Status: Acute - Transfer Medications Prescriptions: OxyCODONE Immed Rel [Roxicodone 5 MG] 5 mg PO Q6HR PRN #16 tablet PRN Reason: moderate to severe pain Lidocaine Patch [Lidoderm 5% patch] 1 each TP DAILY #6 adh..patch Home Medications: Metoprolol [Lopressor] 12.5 mg PO BID 08/14/15 [History] Sertraline [Zoloft] 150 mg PO DAILY 08/14/15 [History] Sucralfate [Carafate] 2 gm PO BID 08/14/15 [History] Lactulose 10 gm PO QID 06/24/16 [History] Aspirin 81 mg PO DAILY 07/11/16 [History] Fluticasone/Vilanterol [Breo Ellipta 100-25 Mcg INH] 1 puff IH DAILY 07/11/16 [ History] Pantoprazole Sodium [Protonix] 40 mg PO DAILY 07/11/16 [History] Diltiazem [Cardizem] 30 mg PO TID 09/20/16 [History] Gabapentin [Neurontin] 100 mg PO BID 09/20/16 [History] Sennosides [Senna] 17.2 mg PO DAILY 09/20/16 [History] Simethicone [Gas-X] 120 mg PO BID PRN 09/20/16 [History] Folic Acid 1 mg PO DAILY #30 tablet 12/03/16 [Rx] Ferrous Gluconate 324 mg PO TID 01/12/17 [History] Warfarin [Coumadin] 2 mg PO HS 01/12/17 [History] Amino Acids/Protein Hydrolys [Pro-Stat Awc Liquid] 30 ml PO BID 01/28/17 [ History] Ipratropium/Albuterol Neb [Duoneb] 3 ml IH Q6HR PRN 01/28/17 [History] Mupirocin [Bactroban Oint] 1 appl TP MOWEFR 01/28/17 [History] Insulin ASPART [Novolog Flexpen] 0 - 10 units SQ TID #1 MDD PER SLIDING SCALE 02/06/17 [Rx] Lidocaine Patch [Lidoderm 5% patch] 1 each TP DAILY #6 adh..patch 02/06/17 [Rx] OxyCODONE Immed Rel [Roxicodone 5 MG] 5 mg PO Q6HR PRN #16 tablet 02/06/17 [Rx] Allergies/Adverse Reactions: Allergies ceftriaxone [From Rocephin] Allergy (Severe, Verified 01/18/17 06:24) Anaphylaxis Occured at [facility]. Required ICU transfer, intubation, and mechanical ventilation. ciprofloxacin [From Cipro] Allergy (Mild, Verified 01/18/17 06:24) Rash sulfamethoxazole [From Bactrim] Allergy (Verified 01/18/17 06:24) See Comments trimethoprim [From Bactrim] Allergy (Verified 01/18/17 06:24) See Comments rozeta Allergy (Uncoded 01/18/17 06:24) See Comments - Respiratory Orders Oxygen / L per min (2-3) Smoking Cessation: Smoking cessation has been advised. For more information, call the [place] Tobacco Quit Line at 8-137-HPPB-NOW. - Advance Directives Code Status: Full Code - Rehabiliation Orders Rehab Orders: Evaluation for Physical Therapy, Evaluation for Occupational Therapy - Diet Orders No Concentrated Sweets, Renal CERTIFICATION: I certify that the transfer of the above named patient to an Extended Care Facility is necessary for the continuing treatment of the diagnosis listed. The above information is true and accurate reflection of patient's current condition. Confidential - Redisclosure prohibited without a patient's written consent.
[2017-02-06] MEDS ORDERED: 0.9 % Sodium Chloride 2,000 ML ONE (16:05)
[2017-02-06 16:58] VITALS: BP 126/69
[2017-02-06] MEDS: *HR* Warfarin 2 MG TABLET PO SCH (17:12)
== END 2017-02-06 18:29 | DRG 638 ==
LOC: EMEROO 09:14 → 3ANU 09:14 → 2ANU 17:21
PROVIDERS: ADMIT Internal Medicine; ATTEND Internal Medicine

== ENCOUNTER 2017-02-25 05:00 | Inpatient (IN) ==
[2017-02-25] MEDS ORDERED: *HR* Heparin 5,000 UNIT/ML VIAL IVP ONE (05:18)
--- NOTE | 2017-02-25 05:37 | Emergency Department Note ---
Disposition Clinical Impression: Acute respiratory failure with hypoxia and hypercapnia, End stage renal disease , CHF exacerbation Disposition: Still a Patient Condition: Serious Referrals: Henrry Mccullough MD [Primary Care Provider] - Forms: ED Satisfaction Letter Time of Disposition: 06:48 Altered Mental Status HPI - General Chief Complaint: ED Altered Mental Status Stated Complaint: altered mental status Time Seen by Provider: 02/25/17 05:05 Source: EMS Mode of arrival: EMS Limitations: altered mental status Nursing Notes Reviewed: Yes Vital Signs Reviewed: Yes - History of Present Illness HPI Narrative: Patient presents to the ED from the senior living with altered mental status. Patient is a dialysis patient Saturday, Saturday, Saturday and on rounds this morning. Nursing staff. The patient was unresponsive. Upon EMS arrival, patient was minimally responsive and saturations were in the 70s. She was placed on nonrebreather and saturations came up to the low 90s. Upon arrival to the emergency department the patient was attended minimally responsive only to painful stimuli, however, was breathing sporadically on her own. After medical record review, it was noted that she has a nonoperative right hip fracture and presented very similarly to this last time and required Narcan as she had overdosed on pain medication. Patient was given Narcan with quite good response. She opened her eyes are on was able to state the hospital that she is at, but remained quite confused. She was placed on BiPAP for 15 minutes, and respiratory rate improved, and oxygen saturations were well. However, her mental status did not improve. Therefore, she was intubated. Please see procedure note for details. Plan as documented. - Related Data Home Medications Medication Instructions Recorded Confirmed Metoprolol [Lopressor] 12.5 mg PO BID 08/14/15 02/02/17 Sertraline [Zoloft] 150 mg PO DAILY 08/14/15 02/02/17 Sucralfate [Carafate] 2 gm PO BID 08/14/15 02/02/17 Lactulose 10 gm PO QID 06/24/16 02/02/17 Aspirin 81 mg PO DAILY 07/11/16 02/02/17 Fluticasone/Vilanterol [Breo 1 puff IH DAILY 07/11/16 02/02/17 Ellipta 100-25 Mcg INH] Pantoprazole Sodium [Protonix] 40 mg PO DAILY 07/11/16 02/02/17 Diltiazem [Cardizem] 30 mg PO TID 09/20/16 02/02/17 Gabapentin [Neurontin] 100 mg PO BID 09/20/16 02/02/17 Sennosides [Senna] 17.2 mg PO DAILY 09/20/16 02/02/17 Simethicone [Gas-X] 120 mg PO BID PRN 09/20/16 02/02/17 Ferrous Gluconate 324 mg PO TID 01/12/17 02/02/17 Warfarin [Coumadin] 2 mg PO HS 01/12/17 02/02/17 Amino Acids/Protein Hydrolys 30 ml PO BID 01/28/17 02/02/17 [Pro-Stat Awc Liquid] Ipratropium/Albuterol Neb [Duoneb] 3 ml IH Q6HR PRN 01/28/17 02/02/17 Mupirocin [Bactroban Oint] 1 appl TP MOWEFR 01/28/17 02/02/17 Previous Rx's Medication Instructions Recorded Folic Acid 1 mg PO DAILY #30 tablet 12/03/16 Insulin ASPART [Novolog Flexpen] 0 - 10 units SQ TID #1 MDD PER 02/06/17 SLIDING SCALE Lidocaine Patch [Lidoderm 5% patch] 1 each TP DAILY #6 adh..patch 02/06/17 OxyCODONE Immed Rel [Roxicodone 5 5 mg PO Q6HR PRN #16 tablet 02/06/17 MG] Allergies Allergy/AdvReac Type Severity Reaction Status Date / Time ceftriaxone [From Rocephin] Allergy Severe Anaphylaxis Verified 02/25/17 05:02 ciprofloxacin [From Cipro] Allergy Mild Rash Verified 02/25/17 05:02 sulfamethoxazole Allergy See Verified 02/25/17 05:02 [From Bactrim] Comments trimethoprim [From Bactrim] Allergy See Verified 02/25/17 05:02 Comments rozeta Allergy See Uncoded 02/25/17 05:02 Comments Limitations: ROS unobtainable due to patients medical condition Past Medical History - Past Medical History Attestation: Yes The following information was validated with the patient. 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 Absent: scleral icterus - ENT ENT exam: mucous membranes dry - Respiratory Respiratory exam: Present: respiratory distress, accessory muscle use, other ( Rales and decreased breath sounds). Absent: normal lung sounds bilaterally - Cardiovascular Cardiovascular exam: Present: regular rate, irregular rhythm, systolic murmur - Abdominal Exam Abdominal exam: Present: soft, other (Obese) - Extremities Exam Extremities exam: Present: pedal edema - Neurological Exam Neurological exam: Absent: alert, oriented X3 - Expanded Neurological Exam Patient oriented to: Present: place Coma Scale Eye Opening: To Pain Coma Scale Motor Response: Withdraws to Pain Coma Scale Verbal Response: Incomprehensible Coma Scale Total: 8 - Skin Skin exam: Present: warm, dry, intact, pallor Course Course Narrative: 71-year-old female presenting with suspected overdose versus CHF exacerbation. Failed BiPAP, was subsequently intubated. Chest x-ray showed pulmonary edema. Labs were drawn and sent down. However, were not run because "we did not have an order". We will file an incident report as this is a delay in patient care. Awaiting lab results for admission to the ICU. Patient tolerated intubation well with no complications. Vital Signs O2 Sat by Pulse Oximetry 94 02/25/17 05:02 Temperature 0 F L 02/25/17 05:03 Pulse Rate 76 02/25/17 06:15 Respiratory Rate 14 02/25/17 06:15 Blood Pressure 109/63 02/25/17 06:15 O2 Sat by Pulse Oximetry 100 02/25/17 06:15 Oxygen Delivery Oxygen Delivery Ventilator Altered Mental Status - Lab Data Lab Results 02/25/17 02/25/17 02/25/17 Range/Units 05:40 05:40 06:42 VBG pH 7.08 L* (7.32-7.42) pH Units VBG pCO2 92 H (41-51) mmHg VBG pO2 67 H (25-40) mmHg VBG HCO3 27.3 H (21-27) mEq/L Ammonia 76 H (18-72) mcmol/L Specimen Rejected [facility] Critical Care Time Critical Care Time: Yes Total Critical Care Time: 45 Attestation: Critical care performed: Time is exclusive of separately billable procedures. Time includes: direct patient care, patient reassessment, coordination of patient care, interpretation of data (laboratory data, radiology data, and respiratory data), review of patient's medical records, medical consultation and documentation of patient care. Procedures included in critical care time:none Procedures excluded from critical care time: intubation Attestation Statement - Attestation Attestation: I personally interviewed and examined this patient and my medical decision- making was reviewed with the ED Resident Physician, Drs. Mak and Codey. I agree with the documented findings, disposition and treatment plan as described except to the extent set forth below. Patient is a 71-year-old white female who resides in an F who is was brought to us by EMS this morning for altered mental status. Patient on arrival was on a nonrebreather and it was reported that they had called EMS due to her decreased level of responsiveness as well as hypoxia. EMS stated that her room air sats were in the low 70s but placed on a nonrebreather she cannot been in the 90s and since that time she has been awake but nonverbal with occasional jerking and agitation. Patient was placed on a air sampling and monitoring and continuous pulse ox kept on a nonrebreather initially and assessed. After quick review of her inpatient records was found that patient was admitted for altered mental status [place] one month ago and at that time mental status changes were due to an opiate overdose and she responded to Narcan. Patient is on chronic pain medications for recent right hip fracture that was managed nonoperatively. Patient is also diabetic Accu-Chek on arrival showed hyperglycemia. Patient is also a chronic renal patient on hemodialysis on Saturday with a port in her left chest wall. Patient has a history of CHF. Patient was given Narcan and subsequently was more awake and alert and conversant complaining of right hip pain and ongoing shortness of breath. Patient was still having increased work of breathing and although improved still altered mental status. The decision was made to electively intubate the patient. Please see procedure notes for conscious sedation as well as elective and tracheal intubation. Intubation was performed without complication and patient was placed on the ventilator. Initial vent settings were placed. EKG shows patient to be in atrial fibrillation rate controlled and there is no significant change from prior EKGs. Post intubation chest x-ray shows good tube placement with moderate CHF and cardiomegaly. We are awaiting remainder of labs as well as CT head for completion of altered mental status workup. Patient had Lasix initiated IV but nitroglycerin has been held up to this point due to hypotension since placing the patient on mechanical ventilation. Patient will be admitted to the ICU upon completion of workup this will be signed out to the morning physician.
[2017-02-25 05:52] LABS: VBG HCO3 27.3 mEq/L (21-27)
[2017-02-25 05:58] LABS: VBG PH 7.08 pH Units (7.32-7.42)
[2017-02-25] MEDS ORDERED: Furosemide 40 MG/4 ML VIAL IVP ONE (06:10)
--- NOTE | 2017-02-25 06:21 | Emergency Department Note ---
Disposition Clinical Impression: Acute respiratory failure with hypoxia and hypercapnia Disposition: Still a Patient Condition: Serious Referrals: Henrry Mccullough MD [Primary Care Provider] - Forms: ED Satisfaction Letter Time of Disposition: 06:47 General Adult HPI - General Chief complaint: ED Altered Mental Status Stated complaint: altered mental status Time Seen by Provider: 02/25/17 05:05 Source: EMS Mode of arrival: EMS Limitations: altered mental status - History of Present Illness Pain Scale: 0 - Related Data Home Medications Medication Instructions Recorded Confirmed Metoprolol [Lopressor] 12.5 mg PO BID 08/14/15 02/02/17 Sertraline [Zoloft] 150 mg PO DAILY 08/14/15 02/02/17 Sucralfate [Carafate] 2 gm PO BID 08/14/15 02/02/17 Lactulose 10 gm PO QID 06/24/16 02/02/17 Aspirin 81 mg PO DAILY 07/11/16 02/02/17 Fluticasone/Vilanterol [Breo 1 puff IH DAILY 07/11/16 02/02/17 Ellipta 100-25 Mcg INH] Pantoprazole Sodium [Protonix] 40 mg PO DAILY 07/11/16 02/02/17 Diltiazem [Cardizem] 30 mg PO TID 09/20/16 02/02/17 Gabapentin [Neurontin] 100 mg PO BID 09/20/16 02/02/17 Sennosides [Senna] 17.2 mg PO DAILY 09/20/16 02/02/17 Simethicone [Gas-X] 120 mg PO BID PRN 09/20/16 02/02/17 Ferrous Gluconate 324 mg PO TID 01/12/17 02/02/17 Warfarin [Coumadin] 2 mg PO HS 01/12/17 02/02/17 Amino Acids/Protein Hydrolys 30 ml PO BID 01/28/17 02/02/17 [Pro-Stat Awc Liquid] Ipratropium/Albuterol Neb [Duoneb] 3 ml IH Q6HR PRN 01/28/17 02/02/17 Mupirocin [Bactroban Oint] 1 appl TP MOWEFR 01/28/17 02/02/17 Previous Rx's Medication Instructions Recorded Folic Acid 1 mg PO DAILY #30 tablet 12/03/16 Insulin ASPART [Novolog Flexpen] 0 - 10 units SQ TID #1 MDD PER 02/06/17 SLIDING SCALE Lidocaine Patch [Lidoderm 5% patch] 1 each TP DAILY #6 adh..patch 02/06/17 OxyCODONE Immed Rel [Roxicodone 5 5 mg PO Q6HR PRN #16 tablet 02/06/17 MG] Allergies Allergy/AdvReac Type Severity Reaction Status Date / Time ceftriaxone [From Rocephin] Allergy Severe Anaphylaxis Verified 02/25/17 05:02 ciprofloxacin [From Cipro] Allergy Mild Rash Verified 02/25/17 05:02 sulfamethoxazole Allergy See Verified 02/25/17 05:02 [From Bactrim] Comments trimethoprim [From Bactrim] Allergy See Verified 02/25/17 05:02 Comments rozeta Allergy See Uncoded 02/25/17 05:02 Comments Past Medical History - Past Medical History Medical history: Reports: arthritis, atrial fibrillation, cirrhosis, CHF, COPD, diabetes, GERD, hyperlipidemia, hypertension, renal disease, other Surgical history: Reports: cholecystectomy, hysterectomy Psychiatric history: Reports: anxiety, panic disorder 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 - Social History Smoking Status: Never smoker Smokeless Tobacco Status: No Alcohol use: Reports: none Drug use: Reports: none Physical Exam - General Limitations: altered mental status General appearance: alert, obtunded Course Vital Signs O2 Sat by Pulse Oximetry 94 02/25/17 05:02 Temperature 0 F L 02/25/17 05:03 Pulse Rate 78 02/25/17 06:00 Respiratory Rate 12 02/25/17 06:00 Blood Pressure 130/54 02/25/17 06:00 O2 Sat by Pulse Oximetry 100 02/25/17 06:00 Oxygen Delivery Oxygen Delivery Bipap Procedures - Intubation Time out performed: Yes sedative: Etomidate Mg Given: 25 paralytic: Rocuronium Mg Given: 90 Laryngoscope: Valentín ET Tube Size: 7.5 ET Tube Uncuffed: No Tube Secured Depth (cm): 22 Tube Secured Location: lips Tube Placement Confirmation: visualized tube passing through cords, equal breath sounds bilaterally, no breath sounds over epigastrium Patient Tolerated Procedure: well Intubation Complications: none Medical Decision Making - Lab Data Lab Results 02/25/17 02/25/17 Range/Units 05:40 05:40 VBG pH 7.08 L* (7.32-7.42) pH Units VBG pCO2 92 H (41-51) mmHg VBG pO2 67 H (25-40) mmHg VBG HCO3 27.3 H (21-27) mEq/L Ammonia 76 H (18-72) mcmol/L
[2017-02-25 06:55] LABS: Bilirubin,Urine Negative (Negative); Blood,Urine Large (Negative); Clarity,Urine Turbid (Clear); Color,Urine Dark Yellow (Yellow); Glucose,Urine (UA) Normal (Normal); Ketones,Urine Trace mg/dL (Negative); Leukocyte Esterase,Urine Large (Negative); Nitrite,Urine Negative (Negative); PH,Urine 6.5 pH Units (5.0-8.0); Protein,Urine >=300 mg/dL (Neg-Trace); Specific Gravity,Urine 1.021 (1.010-1.025); Urobilinogen,Urine Normal (Normal)
--- NOTE | 2017-02-25 06:59 | Emergency Department Note ---
Disposition Clinical Impression: Acute respiratory failure with hypoxia and hypercapnia, End stage renal disease , Respiratory acidosis, Hyperammonemia, Elevated brain natriuretic peptide (BNP ) level CHF exacerbation Qualifiers: Congestive heart failure type: unspecified congestive heart failure type Qualified Code(s): I50.9 - Heart failure, unspecified Pulmonary edema Qualifiers: Chronicity: acute Qualified Code(s): J81.0 - Acute pulmonary edema Anemia Qualifiers: Anemia type: unspecified type Qualified Code(s): D64.9 - Anemia, unspecified Disposition: Admitted As Inpatient Condition: Critical Referrals: Henrry Mccullough MD [Primary Care Provider] - Forms: ED Satisfaction Letter Time of Disposition: 09:02 Altered Mental Status HPI - General Chief Complaint: ED Altered Mental Status Stated Complaint: altered mental status Time Seen by Provider: 02/25/17 05:05 Source: EMS Mode of arrival: EMS Limitations: altered mental status Nursing Notes Reviewed: Yes Vital Signs Reviewed: Yes - Related Data Home Medications Medication Instructions Recorded Confirmed Metoprolol [Lopressor] 12.5 mg PO BID 08/14/15 02/02/17 Sertraline [Zoloft] 150 mg PO DAILY 08/14/15 02/02/17 Sucralfate [Carafate] 2 gm PO BID 08/14/15 02/02/17 Lactulose 10 gm PO QID 06/24/16 02/02/17 Aspirin 81 mg PO DAILY 07/11/16 02/02/17 Fluticasone/Vilanterol [Breo 1 puff IH DAILY 07/11/16 02/02/17 Ellipta 100-25 Mcg INH] Pantoprazole Sodium [Protonix] 40 mg PO DAILY 07/11/16 02/02/17 Diltiazem [Cardizem] 30 mg PO TID 09/20/16 02/02/17 Gabapentin [Neurontin] 100 mg PO BID 09/20/16 02/02/17 Sennosides [Senna] 17.2 mg PO DAILY 09/20/16 02/02/17 Simethicone [Gas-X] 120 mg PO BID PRN 09/20/16 02/02/17 Ferrous Gluconate 324 mg PO TID 01/12/17 02/02/17 Warfarin [Coumadin] 2 mg PO HS 01/12/17 02/02/17 Amino Acids/Protein Hydrolys 30 ml PO BID 01/28/17 02/02/17 [Pro-Stat Awc Liquid] Ipratropium/Albuterol Neb [Duoneb] 3 ml IH Q6HR PRN 01/28/17 02/02/17 Mupirocin [Bactroban Oint] 1 appl TP [id number] 01/28/17 02/02/17 Previous Rx's Medication Instructions Recorded Folic Acid 1 mg PO DAILY #30 tablet 12/03/16 Insulin ASPART [Novolog Flexpen] 0 - 10 units SQ TID #1 MDD PER 02/06/17 SLIDING SCALE Lidocaine Patch [Lidoderm 5% patch] 1 each TP DAILY #6 adh..patch 02/06/17 OxyCODONE Immed Rel [Roxicodone 5 5 mg PO Q6HR PRN #16 tablet 02/06/17 MG] Allergies Allergy/AdvReac Type Severity Reaction Status Date / Time ceftriaxone [From Rocephin] Allergy Severe Anaphylaxis Verified 02/25/17 05:02 ciprofloxacin [From Cipro] Allergy Mild Rash Verified 02/25/17 05:02 sulfamethoxazole Allergy See Verified 02/25/17 05:02 [From Bactrim] Comments trimethoprim [From Bactrim] Allergy See Verified 02/25/17 05:02 Comments rozeta Allergy See Uncoded 02/25/17 05:02 Comments Past Medical History - Past Medical History Medical history: Reports: arthritis, atrial fibrillation, cirrhosis, CHF, COPD, diabetes, GERD, hyperlipidemia, hypertension, renal disease, other Surgical history: Reports: cholecystectomy, hysterectomy Psychiatric history: Reports: anxiety, panic disorder MOHS SURGEON history: Reports: bilateral tubal ligation - Social History Smoking Status: Never smoker Smokeless Tobacco Status: No Alcohol use: Reports: none Drug use: Reports: none Physical Exam - General Limitations: altered mental status General appearance: obtunded - Head Head exam: atraumatic, normocephalic, normal inspection - Eye Eye exam: Present: normal appearance, PERRL, EOMI - ENT ENT exam: normal oropharynx, mucous membranes moist, other (ET and OG tube placed) - Neck Neck exam: Present: normal inspection, full ROM, trachea midline - Chest Chest inspection: Present: normal inspection, symmetric chest wall rise - Respiratory Respiratory exam: Present: other (crackles and rhonchi in bilateral lower lobes) - Cardiovascular Cardiovascular exam: Present: regular rate, normal rhythm, normal heart sounds - Abdominal Exam Abdominal exam: Present: soft, Non-Tender. Absent: tenderness, distention, guarding, rebound, rigidity - Extremities Exam Extremities exam: Present: pedal edema - Neurological Exam Neurological exam: Present: alert, oriented X3 - Psychiatric Psychiatric exam: Present: normal affect, normal mood - Skin Skin exam: Present: warm, dry, intact, normal color Course Course Narrative: This patient was a signout from Dr. Mak and Dr. Skye montejo. Please see their notes for additional details. In summary, patient is a 71-year-old female from [facility] was found unresponsive, arrived in respiratory distress with oxygen saturation in the 70s to 80s on nonrebreather. Initial ABG showed a pH of 7.08, CO2 92. Patient was here about a month ago with a similar presentation and was given Narcan due to accidental overdose on pain medication secondary to nonoperative right hip fracture. She is a dialysis patient, has CHF, is supposed to go to dialysis Saturday, Saturday, Saturday with Dr. Bowden. Patient was intubated shortly after arrival due to respiratory distress. Labs are pending. Chest x-ray showed pulmonary edema. Will admit to ICU after labs return. 07:19 Spoke with daughter, she reports history of CHF, DM, HTN, cirrhosis, non operable right hip fx, a fib with aspirin and coumadin use. Also reports patient is full code. 07:27 CT head negative. Anemia 10.4, hyperammonemia. BNP 2203 07:59 Trop negative 0.03. 08:51 Patient has hyponatremia and creat 4.79. Dr. Camejo spoke to Dr. Bowden who has agreed to be consult for ERF and dialysis. Will admit to ICU for further care. Chest X-Ray 02/25/17 06:09 IMPRESSION: Satisfactory line and tube placement. D/ / Fidencio Mayer MD / Fidencio Mayer MD Interpreting Provider: Fidencio Mayer MD Vital Signs O2 Sat by Pulse Oximetry 94 02/25/17 05:02 Temperature 0 F L 02/25/17 05:03 Pulse Rate 70 07/17/17 07:55 Respiratory Rate 14 02/25/17 07:55 Blood Pressure 114/67 02/25/17 07:55 O2 Sat by Pulse Oximetry 100 02/25/17 07:55 Oxygen Delivery Oxygen Delivery Ventilator Altered Mental Status - MDM Narrative Medical decision making narrative: I examined this patient and my medical decision-making was reviewed with the RURAL SERVICE ENGINEER/PA/Advanced Practice Nurse/Resident Physician. I agree with the documented findings, disposition and treatment plan as described except to the extent set forth below. Patient was a sign out from the evening ER physician, patient, and with respiratory distress needing intubation. In decrease in mental status. Did question whether this was due to her needing dialysis and she scheduled today and has not been done yet. Sees Dr. Garcia for dialysis. Also had a history in the past of possible overmedication with narcotics. Once care was transferred over to us should very been intubated had chest x-ray done was waiting on labs which should been drawn but had not been run for some reason. Labs are coming back now. Once those are back we will speak to the admitting ICU physician as well as nephrology. Family is updated. 0842 hrs.: Patient's labs are back. BUN and creatinine are elevated, potassium stable. Patient does have CHF by chest x-ray, physical exam, and BNP, going to speak with nephrology for dialysis and ICU for admission. Patient's critical care time exclusive separately billable procedures is 20 minutes. This patient was a signout from Dr. Mak and Dr. Skye montejo. Please see their notes for additional details. In summary, patient is a 71-year-old female from [facility] was found unresponsive, arrived in respiratory distress with oxygen saturation in the 70s to 80s on nonrebreather. Initial ABG showed a pH of 7.08, CO2 92. Patient was here about a month ago with a similar presentation and was given Narcan due to accidental overdose on pain medication secondary to nonoperative right hip fracture. She is a dialysis patient, has CHF, is supposed to go to dialysis Saturday, Saturday, Saturday with Dr. Bowden. Patient was intubated shortly after arrival due to respiratory distress. Labs are pending. Chest x-ray showed pulmonary edema. Will admit to ICU after labs return. 07:19 Spoke with daughter, she reports history of CHF, DM, HTN, cirrhosis, non operable right hip fx, a fib with aspirin and coumadin use. Also reports patient is full code. 07:27 CT head negative. Anemia 10.4, hyperammonemia. BNP 2203 07:59 Trop negative 0.03. 08:51 Patient has hyponatremia and creat 4.79. Dr. Camejo spoke to Dr. Bowden who has agreed to be consult for ERF and dialysis. Will admit to ICU for further care. - Medical Records Medical records reviewed: Yes I reviewed the patient's medical records. - Lab Data Lab results reviewed: Yes I reviewed the patient's lab results. Result diagrams: 02/25/17 07:11 02/25/17 07:11 Lab Results 02/25/17 02/25/17 02/25/17 Range/Units 05:03 05:40 05:40 WBC (4.3-11.1) K/mcL RBC (3.82-4.97) M/mcL Hgb (11.5-15.4) g/dL Hct (35.3-44.9) % MCV (83.0-100.0) fL MCH (28.0-33.3) pg MCHC (31.6-35.5) g/dL RDW (11.5-14.5) % Plt Count (140-400) K/mcL MPV (9.4-12.4) fL Immature Gran % (0-4) % Seg Neutrophils % % Lymphocytes % % Monocytes % % Eosinophils % % Basophils % % Neutrophils # (1.6-8.9) K/mcL Lymphocytes # (0.6-4.6) K/mcL Monocytes # (0.0-1.3) K/mcL Eosinophils # (0.0-0.6) K/mcL Basophils # (0.0-0.2) K/mcL Nucleated RBCs/100 WBC (0) /100 WBC Platelet Estimate (Normal) Immature Plt Fraction (1.1-6.1) % Polychromasia (Not Present) Hypochromasia (Not Present) Basophilic Stippling (Not Present) Anisocytosis (Not Present) PT (9.4-12.1) Seconds INR APTT (26.0-36.0) Seconds VBG pH 7.08 L* (7.32-7.42) pH Units VBG pCO2 92 H (41-51) mmHg VBG pO2 67 H (25-40) mmHg VBG HCO3 27.3 H (21-27) mEq/L Sodium (136-145) mEq/L Potassium (3.5-4.5) mEq/L Chloride (98-109) mEq/L Carbon Dioxide (19-29) mEq/L BUN (7-20) mg/dL Creatinine (0.57-1.11) mg/dL Est GFR ( Amer) (> 60) Est GFR (Non-Af Amer) (> 60) BUN/Creatinine Ratio (6-26) Glucose (70-99) mg/dL POC Glucose 247 H (58-89) Calculated Osmolality (280-300) Calcium (8.6-10.8) mg/dL Total Bilirubin (0.2-1.2) mg/dL Direct Bilirubin (0.0-0.5) mg/dL Indirect Bilirubin (0.0-1.2) mg/dL AST (5-34) Units/L ALT (0-55) Units/L Alkaline Phosphatase (38-126) Units/L Ammonia 76 H (18-72) mcmol/L Troponin I (0-0.03) ng/mL B-Natriuretic Peptide (0-100) pg/mL Serum Total Protein (6.0-8.3) g/dL Albumin (3.5-5.0) g/dL Globulin (2.4-3.5) g/dL Albumin/Globulin Ratio (1.1-2.2) Ur Specimen Adequacy Urine Color (Yellow) Urine Clarity (Clear) Urine pH (5.0-8.0) pH Units Ur Specific [place] (1.010-1.025) Urine Protein (Neg-Trace) mg/dL Urine Glucose (UA) (Normal) mg/dL Urine Ketones (Negative) mg/dL Urine Blood (Negative) Urine Nitrite (Negative) Urine Bilirubin (Negative) Urine Urobilinogen (Normal) mg/dL Ur Leukocyte Esterase (Negative) Ur Culture Indicated? (NO) Ethyl Alcohol (0-10) mg/dL Specimen Rejected 02/25/17 02/25/17 02/25/17 Range/Units 06:28 06:42 07:11 WBC 10.8 (4.3-11.1) K/mcL RBC 4.51 (3.82-4.97) M/mcL Hgb 10.4 L (11.5-15.4) g/dL Hct 39.2 (35.3-44.9) % MCV 86.9 (83.0-100.0) fL MCH 23.1 L (28.0-33.3) pg MCHC 26.5 L (31.6-35.5) g/dL RDW 21.6 H (11.5-14.5) % Plt Count 297 (140-400) K/mcL MPV 8.6 L (9.4-12.4) fL Immature Gran % 4.4 H (0-4) % Seg Neutrophils % 87.3 % Lymphocytes % 2.6 % Monocytes % 5.4 % Eosinophils % 0.0 % Basophils % 0.3 % Neutrophils # 9.4 H (1.6-8.9) K/mcL Lymphocytes # 0.3 L (0.6-4.6) K/mcL Monocytes # 0.6 (0.0-1.3) K/mcL Eosinophils # 0.0 (0.0-0.6) K/mcL Basophils # 0.0 (0.0-0.2) K/mcL Nucleated RBCs/100 WBC 0.6 H (0) /100 WBC Platelet Estimate Normal (Normal) Immature Plt Fraction 1.0 L (1.1-6.1) % Polychromasia 1+ A (Not Present) Hypochromasia Present A (Not Present) Basophilic Stippling 1+ A (Not Present) Anisocytosis 2+ A (Not Present) PT (9.4-12.1) Seconds INR APTT (26.0-36.0) Seconds VBG pH (7.32-7.42) pH Units VBG pCO2 (41-51) mmHg VBG pO2 (25-40) mmHg VBG HCO3 (21-27) mEq/L Sodium (136-145) mEq/L Potassium (3.5-4.5) mEq/L Chloride (98-109) mEq/L Carbon Dioxide (19-29) mEq/L BUN (7-20) mg/dL Creatinine (0.57-1.11) mg/dL Est GFR ( Amer) (> 60) Est GFR (Non-Af Amer) (> 60) BUN/Creatinine Ratio (6-26) Glucose (70-99) mg/dL POC Glucose (58-89) Calculated Osmolality (280-300) Calcium (8.6-10.8) mg/dL Total Bilirubin (0.2-1.2) mg/dL Direct Bilirubin (0.0-0.5) mg/dL Indirect Bilirubin (0.0-1.2) mg/dL AST (5-34) Units/L ALT (0-55) Units/L Alkaline Phosphatase (38-126) Units/L Ammonia (18-72) mcmol/L Troponin I (0-0.03) ng/mL B-Natriuretic Peptide (0-100) pg/mL Serum Total Protein (6.0-8.3) g/dL Albumin (3.5-5.0) g/dL Globulin (2.4-3.5) g/dL Albumin/Globulin Ratio (1.1-2.2) Ur Specimen Adequacy See below A Urine Color Dark Yellow (Yellow) Urine Clarity Turbid A (Clear) Urine pH 6.5 (5.0-8.0) pH Units Ur Specific [place] 1.021 (1.010-1.025) Urine Protein >=300 H (Neg-Trace) mg/dL Urine Glucose (UA) Normal (Normal) mg/dL Urine Ketones Trace H (Negative) mg/dL Urine Blood Large H (Negative) Urine Nitrite Negative (Negative) Urine Bilirubin Negative (Negative) Urine Urobilinogen Normal (Normal) mg/dL Ur Leukocyte Esterase Large H (Negative) Ur Culture Indicated? YES A (NO) Ethyl Alcohol (0-10) mg/dL Specimen Rejected MCV Delta 02/25/17 02/25/17 02/25/17 Range/Units 07:11 07:11 07:11 WBC (4.3-11.1) K/mcL RBC (3.82-4.97) M/mcL Hgb (11.5-15.4) g/dL Hct (35.3-44.9) % MCV (83.0-100.0) fL MCH (28.0-33.3) pg MCHC (31.6-35.5) g/dL RDW (11.5-14.5) % Plt Count (140-400) K/mcL MPV (9.4-12.4) fL Immature Gran % (0-4) % Seg Neutrophils % % Lymphocytes % % Monocytes % % Eosinophils % % Basophils % % Neutrophils # (1.6-8.9) K/mcL Lymphocytes # (0.6-4.6) K/mcL Monocytes # (0.0-1.3) K/mcL Eosinophils # (0.0-0.6) K/mcL Basophils # (0.0-0.2) K/mcL Nucleated RBCs/100 WBC (0) /100 WBC Platelet Estimate (Normal) Immature Plt Fraction (1.1-6.1) % Polychromasia (Not Present) Hypochromasia (Not Present) Basophilic Stippling (Not Present) Anisocytosis (Not Present) PT 16.4 H (9.4-12.1) Seconds INR 1.5 APTT 44.0 H (26.0-36.0) Seconds VBG pH (7.32-7.42) pH Units VBG pCO2 (41-51) mmHg VBG pO2 (25-40) mmHg VBG HCO3 (21-27) mEq/L Sodium 129 L (136-145) mEq/L Potassium 3.8 (3.5-4.5) mEq/L Chloride 93 L (98-109) mEq/L Carbon Dioxide 27 (19-29) mEq/L BUN 44 H (7-20) mg/dL Creatinine 4.79 H (0.57-1.11) mg/dL Est GFR ( Amer) 11 L (> 60) Est GFR (Non-Af Amer) 9 L (> 60) BUN/Creatinine Ratio 9 (6-26) Glucose 283 H (70-99) mg/dL POC Glucose (58-89) Calculated Osmolality 289 (280-300) Calcium 9.8 (8.6-10.8) mg/dL Total Bilirubin 0.8 (0.2-1.2) mg/dL Direct Bilirubin 0.5 (0.0-0.5) mg/dL Indirect Bilirubin 0.3 (0.0-1.2) mg/dL AST 12 (5-34) Units/L ALT 9 (0-55) Units/L Alkaline Phosphatase 205 H (38-126) Units/L Ammonia (18-72) mcmol/L Troponin I 0.03 (0-0.03) ng/mL B-Natriuretic Peptide (0-100) pg/mL Serum Total Protein 6.7 (6.0-8.3) g/dL Albumin 2.8 L (3.5-5.0) g/dL Globulin 3.9 H (2.4-3.5) g/dL Albumin/Globulin Ratio 0.7 L (1.1-2.2) Ur Specimen Adequacy Urine Color (Yellow) Urine Clarity (Clear) Urine pH (5.0-8.0) pH Units Ur Specific [place] (1.010-1.025) Urine Protein (Neg-Trace) mg/dL Urine Glucose (UA) (Normal) mg/dL Urine Ketones (Negative) mg/dL Urine Blood (Negative) Urine Nitrite (Negative) Urine Bilirubin (Negative) Urine Urobilinogen (Normal) mg/dL Ur Leukocyte Esterase (Negative) Ur Culture Indicated? (NO) Ethyl Alcohol < 10 (0-10) mg/dL Specimen Rejected 02/25/17 Range/Units 07:11 WBC (4.3-11.1) K/mcL RBC (3.82-4.97) M/mcL Hgb (11.5-15.4) g/dL Hct (35.3-44.9) % MCV (83.0-100.0) fL MCH (28.0-33.3) pg MCHC (31.6-35.5) g/dL RDW (11.5-14.5) % Plt Count (140-400) K/mcL MPV (9.4-12.4) fL Immature Gran % (0-4) % Seg Neutrophils % % Lymphocytes % % Monocytes % % Eosinophils % % Basophils % % Neutrophils # (1.6-8.9) K/mcL Lymphocytes # (0.6-4.6) K/mcL Monocytes # (0.0-1.3) K/mcL Eosinophils # (0.0-0.6) K/mcL Basophils # (0.0-0.2) K/mcL Nucleated RBCs/100 WBC (0) /100 WBC Platelet Estimate (Normal) Immature Plt Fraction (1.1-6.1) % Polychromasia (Not Present) Hypochromasia (Not Present) Basophilic Stippling (Not Present) Anisocytosis (Not Present) PT (9.4-12.1) Seconds INR APTT (26.0-36.0) Seconds VBG pH (7.32-7.42) pH Units VBG pCO2 (41-51) mmHg VBG pO2 (25-40) mmHg VBG HCO3 (21-27) mEq/L Sodium (136-145) mEq/L Potassium (3.5-4.5) mEq/L Chloride (98-109) mEq/L Carbon Dioxide (19-29) mEq/L BUN (7-20) mg/dL Creatinine (0.57-1.11) mg/dL Est GFR ( Amer) (> 60) Est GFR (Non-Af Amer) (> 60) BUN/Creatinine Ratio (6-26) Glucose (70-99) mg/dL POC Glucose (58-89) Calculated Osmolality (280-300) Calcium (8.6-10.8) mg/dL Total Bilirubin (0.2-1.2) mg/dL Direct Bilirubin (0.0-0.5) mg/dL Indirect Bilirubin (0.0-1.2) mg/dL AST (5-34) Units/L ALT (0-55) Units/L Alkaline Phosphatase (38-126) Units/L Ammonia (18-72) mcmol/L Troponin I (0-0.03) ng/mL B-Natriuretic Peptide 2203 H (0-100) pg/mL Serum Total Protein (6.0-8.3) g/dL Albumin (3.5-5.0) g/dL Globulin (2.4-3.5) g/dL Albumin/Globulin Ratio (1.1-2.2) Ur Specimen Adequacy Urine Color (Yellow) Urine Clarity (Clear) Urine pH (5.0-8.0) pH Units Ur Specific [place] (1.010-1.025) Urine Protein (Neg-Trace) mg/dL Urine Glucose (UA) (Normal) mg/dL Urine Ketones (Negative) mg/dL Urine Blood (Negative) Urine Nitrite (Negative) Urine Bilirubin (Negative) Urine Urobilinogen (Normal) mg/dL Ur Leukocyte Esterase (Negative) Ur Culture Indicated? (NO) Ethyl Alcohol (0-10) mg/dL Specimen Rejected - Radiology Data Radiology results reviewed: Yes I reviewed the patient's radiology results. Head CT 02/25/17 05:20 IMPRESSION: No acute intracranial abnormality. D/ / Benjamin Spain MD / Benjamin Spain MD Interpreting Provider: Benjamin Spain MD Chest X-Ray 02/25/17 06:09 IMPRESSION: Satisfactory line and tube placement. D/ / Fidencio Mayer MD / Fidencio Mayer MD Interpreting Provider: Fidencio Mayer MD - EKG Data EKG attestation: Yes I reviewed and interpreted this EKG. EKG results narrative: 02/25/2017 and 05:20. A. fib. 385. QRS 98. QTC 388. Left axis deviation. No acute ST elevation or depression. No acute changes from previous EKG on 02/02 TPA Checklist - LKW: 3-4.5 hrs Add. Warnings/Precautions Patient/family understanding: The patient/family members have been counseled and understood the risk, benefit , and alternatives of treatment. S.B.A.R. - S.B.APhilippe Situation: Demographics, MOA Background: Presenting Complaint, Relevant PMH, Meds, & Allergies Assessment: Vital Signs, Course and respsone to treatment, Exam Concerns, Patient/Family Expectation, Pertinant Lab Results Recommendation: Barrier(s) to disposition, Recommendation based on pending studies, treatments, or consults S.B.A.RWing Report Given to: Dr. Jerri Arreola Repor Time: 09:00
[2017-02-25] MEDS: Dexmedetomidine HCl 400 MCG/100 ML MLS IVC SCH ×2 (07:06→18:37)
[2017-02-25 07:18] LABS: Basophils % 0.3 %; Hematocrit 39.2 % (35.3-44.9); Hemoglobin 10.4 g/dL (11.5-15.4); Immature Granulocytes % 4.4 % (0-4); Lymphocytes # 0.3 K/mcL (0.6-4.6); Lymphocytes % 2.6 %; Mean Corpuscular HGB Conc 26.5 g/dL (31.6-35.5); Mean Corpuscular Hemoglobin 23.1 pg (28.0-33.3); Mean Corpuscular Volume 86.9 fL (83.0-100.0); Mean Platelet Volume 8.6 fL (9.4-12.4); Monocytes # 0.6 K/mcL (0.0-1.3); Monocytes % 5.4 %; Nucleated Red Blood Cells 0.6 /100 WBC (0); Platelet Count 297 K/mcL (140-400); Red Blood Count 4.51 M/mcL (3.82-4.97); Red Cell Distribution Width 21.6 % (11.5-14.5); Segmented Neutrophils % 87.3 %
[2017-02-25 07:19] LABS: Neutrophils # 9.4 K/mcL (1.6-8.9)
[2017-02-25 07:28] LABS: INR 1.5; Prothrombin Time 16.4 Seconds (9.4-12.1)
[2017-02-25 07:48] LABS: Hypochromasia Present (Not Present); Polychromasia 1+ (Not Present)
[2017-02-25 07:53] LABS: Anisocytosis 2+ (Not Present); Basophilic Stippling 1+ (Not Present)
[2017-02-25 07:55] LABS: Platelet Estimate Normal (Normal)
[2017-02-25 08:36] LABS: Alanine Aminotransferase 9 Units/L (0-55); Albumin 2.8 g/dL (3.5-5.0); Albumin/Globulin Ratio 0.7 (1.1-2.2); Alkaline Phosphatase 205 Units/L (38-126); Aspartate Amino Transferase 12 Units/L (5-34); BUN/Creatinine Ratio 9 (6-26); Bilirubin,Direct 0.5 mg/dL (0.0-0.5); Bilirubin,Indirect 0.3 mg/dL (0.0-1.2); Blood Urea Nitrogen 44 mg/dL (7-20); Calcium 9.8 mg/dL (8.6-10.8); Carbon Dioxide 27 mEq/L (19-29); Chloride 93 mEq/L (98-109); Globulin 3.9 g/dL (2.4-3.5); Glucose 283 mg/dL (70-99); Osmolality,Calculated 289 (280-300); Potassium 3.8 mEq/L (3.5-4.5); Sodium 129 mEq/L (136-145); Total Protein 6.7 g/dL (6.0-8.3); eGFR For African Americans 11 (> 60); eGFR For Non-African Americans 9 (> 60)
[2017-02-25 08:37] LABS: Bilirubin,Total 0.8 mg/dL (0.2-1.2); Ethanol < 10 mg/dL (0-10)
[2017-02-25] MEDS ORDERED: Naloxone 0.4 MG/ML INJ IVP PRN (09:23)
[2017-02-25] MEDS ORDERED: Lacri-Lube 3.5 GM TUBE BOTH EYES PRN (09:25)
--- NOTE | 2017-02-25 09:50 | Nephrology Consult Note ---
<Dinesh Camejo - Last Filed: 02/25/17 09:56> Date of Encounter: 02/25/17 Medications and Allergies Metoprolol [Lopressor] 12.5 mg PO HS 08/14/15 [History] Sertraline [Zoloft] 150 mg PO DAILY 08/14/15 [History] Sucralfate [Carafate] 2 gm PO BID 08/14/15 [History] Lactulose 10 gm PO QID 06/24/16 [History] Aspirin 81 mg PO DAILY 07/11/16 [History] Fluticasone/Vilanterol [Breo Ellipta 100-25 Mcg INH] 1 puff IH DAILY 07/11/16 [ History] Pantoprazole Sodium [Protonix] 40 mg PO DAILY 07/11/16 [History] Diltiazem [Cardizem] 30 mg PO TID 09/20/16 [History] Gabapentin [Neurontin] 100 mg PO BID 09/20/16 [History] Sennosides [Senna] 17.2 mg PO DAILY 09/20/16 [History] Simethicone [Gas-X] 120 mg PO BID PRN 09/20/16 [History] Folic Acid 1 mg PO DAILY #30 tablet 12/03/16 [Rx] Ferrous Gluconate 324 mg PO TID 01/12/17 [History] Warfarin [Coumadin] 2 mg PO HS 01/12/17 [History] Amino Acids/Protein Hydrolys [Pro-Stat Awc Liquid] 30 ml PO BID 01/28/17 [ History] Ipratropium/Albuterol Neb [Duoneb] 3 ml IH Q6HR PRN 01/28/17 [History] Mupirocin [Bactroban Oint] 1 appl TP MOWEFR 01/28/17 [History] Insulin ASPART [Novolog Flexpen] 0 - 10 units SQ TID #1 MDD PER SLIDING SCALE 02/06/17 [Rx] Lidocaine Patch [Lidoderm 5% patch] 1 each TP DAILY #6 adh..patch 02/06/17 [Rx] OxyCODONE Immed Rel [Roxicodone 5 MG] 5 mg PO Q6HR PRN #16 tablet 02/06/17 [Rx] Gentamicin OPTH Soln 1 drop OP TID 02/25/17 [History] Metoprolol [Lopressor] 12.5 mg PO SUTUTHSA@0800 02/25/17 [History] Torsemide 50 mg PO DAILY 02/25/17 [History] Allergies ceftriaxone [From Rocephin] Allergy (Severe, Verified 02/25/17 05:02) Anaphylaxis Occured at [facility]. Required ICU transfer, intubation, and mechanical ventilation. ciprofloxacin [From Cipro] Allergy (Mild, Verified 02/25/17 05:02) Rash sulfamethoxazole [From Bactrim] Allergy (Verified 02/25/17 05:02) See Comments trimethoprim [From Bactrim] Allergy (Verified 02/25/17 05:02) See Comments piperacillin [From Zosyn] Adverse Reaction (Verified 02/25/17 18:25) See Comments unknown, per list from [facility] tazobactam [From Zosyn] Adverse Reaction (Verified 02/25/17 18:25) See Comments unknown, per list from [facility] rozeta Allergy (Uncoded 02/25/17 05:02) See Comments Exam - Vital Signs Vital signs: Initial Vital Signs Pulse Ox 94 02/25/17 05:02 Vital Signs - Last 8 Hours Resp BP Pulse Ox 02/25/17 09:48 14 129/93 98 Intake and Output 02/24/17 02/25/17 02/25/17 23:59 07:59 15:59 Intake Total 23.5 / 23.5 Balance 23.5 / 23.5 Intake: IV Fluids 23.5 / 23.5 PRECEDEX 400 mcg In 100 23.5 / 23.5 ml @ 0.2 MCG/KG/HR 4.389 mls/hr IVC .[id number] [facility] Rx#:[id number] Results - Lab Results 02/25/17 07:11 02/25/17 07:11 Most recent lab results Calcium 9.8 mg/dL (8.6-10.8) 02/25/17 07:11 Consult Discharge Plan - Plan Referrals: Henrry Mccullough MD [Primary Care Provider] - <Quincy Bowden - Last Filed: 03/15/17 08:41> Date of Encounter: 03/15/17 Time of Encounter: 09:46 Assessment and Plan (1) End-stage renal disease Status: Acute Patient has end-stage renal disease. She receives dialysis every Saturday. She presents with hypercapnic respiratory failure in the setting of acute on chronic diastolic congestive heart failure. I suspect she also may have decreased ventilation from medications given to her at the custodial. Patient is currently intubated. She is to be transferred to the intensive care unit. We will will provide dialysis today for volume removal. (2) Chronic diastolic (congestive) heart failure Status: Acute (3) Acute and chronic respiratory failure Status: Acute Qualifiers: Respiratory failure complication: hypercapnia Qualified Code(s): J96.22 - Acute and chronic respiratory failure with hypercapnia (4) Atrial fibrillation Status: Chronic Qualifiers: Atrial fibrillation type: chronic Qualified Code(s): I48.2 - Chronic atrial fibrillation History of Present Illness - History of Present Illness This is a 71-year-old female with end-stage renal disease. She receives dialysis in [place] every Saturday. Patient currently was found poorly responsive at the custodial subsequently sent to the emergency room. Initial evaluation showed the patient to have hypercapnic respiratory failure. PH was 7.08 with a PCO2 of 92. Chest x-ray suggested congestive heart failure. BNP was elevated. Ammonia level was elevated. Patient was intubated in the emergency room. Patient seen and examined in the emergency room. She currently sedated on the ventilator. NG tube is in place. Patient is unable to give any additional history. History is obtained from the medical record. Patient's had multiple admissions for acute respiratory failure in the setting of his heart failure and COPD as well as sedation from various medications. Past Med Surg Social Fam HX - Past Medical History Medical history: arthritis, atrial fibrillation, cirrhosis, CHF, COPD, diabetes , GERD, hyperlipidemia, hypertension, renal disease, other Psychiatric history: anxiety, panic disorder - Past Surgical History Surgical History: cholecystectomy, hysterectomy - Social History Smoking Status: Never smoker Smokeless Tobacco Status: No Alcohol use: none Drug use: none - Family History Mother Living Status: Hx Family Cardiac Disorders: Yes Hx Family GI Disorders: Yes Hx Family Endocrine Disorder: Yes Father Living Status: Hx Family Cardiac Disorders: Yes Hx Family Cancer: Yes Sister Living Status: Still Living Hx Family Cancer: Yes (Breast Cancer, age 40's) Hx Family Endocrine Disorder: Yes (diabetes mellitus) Brother Living Status: Still Living Hx Family Cardiac Disorders: No Hx Family Respiratory Disorders: No Hx Family Cancer: No Hx Family GI Disorders: No Hx Family Endocrine Disorder: Yes Hx Family Neuromuscular Disorders: No Hx Family Neurologic Disorders: No Hx Family HEENT Disorders: No Hx Family Autoimmune Disorders: No Review of Systems ROS unobtainable: due to endotracheal tube Exam - Vital Signs Vital signs: Initial Vital Signs Pulse Ox 94 02/25/17 05:02 Intake and Output 02/24/17 02/25/17 02/25/17 23:59 07:59 15:59 Intake Total 11.5 / 11.5 Balance 11.5 / 11.5 Intake: IV Fluids 11.5 / 11.5 PRECEDEX 400 mcg In 100 11.5 / 11.5 ml @ 0.2 MCG/KG/HR 4.389 mls/hr IVC .[id number] [facility] Rx#:[id number] - General Appearance Exam: Patient is seen and examined in the emergency room. She is intubated. She is sedated on the ventilator. Vital signs are stable. Lungs coarse breath sounds bilaterally. Heart irregular rate and rhythm. Abdomen shows normal bowel sounds is masses, megaly or tenderness. Lower extremity show 1-2+ lower extremity swelling. There is an AV fistula in the left upper extremity. There is a tunnel dialysis catheter in the left chest. Results - Lab Results 03/10/17 03:35 03/10/17 03:35 Most recent lab results Calcium 9.8 mg/dL (8.6-10.8) 02/25/17 07:11
[2017-02-25] MEDS ORDERED: 0.9 % Sodium Chloride 250 ML IVC PRN (09:52)
--- NOTE | 2017-02-25 09:58 | Pulmonology History & Physical ---
<IanChester Majo - Last Filed: 02/25/17 11:30> Date of Encounter: 02/25/17 Time of Encounter: 09:56 Assessment and Plan (1) Acute and chronic respiratory failure Current visit: No Status: Acute Significant hypercapnia which is likely multifactorial in the setting of opioid use with poor clearance due to cirrhosis of the liver and end-stage renal disease. Hepatic encephalopathy can also be contributing given the patient's elevated ammonia. The patient also appears to have pulmonary edema in the setting of end-stage renal disease. At this time the patient is intubated and minimally sedated but does respond to painful stimuli at this time. Ventilator support has corrected the patient's respiratory acidosis. We will use minimal sedation to maintain comfort. Nephrology has been consulted and the patient will receive dialysis today with plan for fluid removal. We will initiate lactulose therapy through the OG tube to correct any underlying hepatic encephalopathy. Spoke with the patient's daughter at bedside who is the medical power of energy attorney and she stated that her mother has expressed multiple times in the past that she wishes to remain a full code and have everything done in the event of an arrest. According to records on past visits this is consistent with the patient's previous wishes. 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 Rodriguez is a 71 year old female with history of heart failure, cirrhosis of the liver, end-stage renal disease presents with altered mental status. Patient is intubated and sedated at the time of my exam so history is provided by the daughter at the bedside as well as ER documentation. Apparently the patient was found unresponsive at the intermediate. When EMS arrived the patient was minimally responsive with oxygen saturations in the 70s which responded well to 15 L not her breather mask. Upon arrival the patient was responsive to pain. She was given a dose of Narcan for which she had a short response but became unresponsive again so the patient was intubated. Patient's daughter states that this is happening before when she has had too much of her pain medication. Past Med Surg Social Fam HX - Past Medical History Medical history: arthritis, atrial fibrillation, cirrhosis, CHF, COPD, diabetes , GERD, hyperlipidemia, hypertension, renal disease, other Psychiatric history: anxiety, panic disorder - Past Surgical History Surgical History: cholecystectomy, hysterectomy - Social History Smoking Status: Never smoker Smokeless Tobacco Status: No Alcohol use: none Drug use: none - Family History Mother Living Status: Hx Family Cardiac Disorders: Yes Hx Family GI Disorders: Yes Hx Family Endocrine Disorder: Yes Father Living Status: Hx Family Cardiac Disorders: Yes Hx Family Cancer: Yes Sister Living Status: Still Living Hx Family Cancer: Yes (Breast Cancer, age 40's) Hx Family Endocrine Disorder: Yes (diabetes mellitus) Brother Living Status: Still Living Hx Family Cardiac Disorders: No Hx Family Respiratory Disorders: No Hx Family Cancer: No Hx Family GI Disorders: No Hx Family Endocrine Disorder: Yes Hx Family Neuromuscular Disorders: No Hx Family Neurologic Disorders: No Hx Family HEENT Disorders: No Hx Family Autoimmune Disorders: No Medications and Allergies Metoprolol [Lopressor] 12.5 mg PO BID 08/14/15 [History] Sertraline [Zoloft] 150 mg PO DAILY 08/14/15 [History] Sucralfate [Carafate] 2 gm PO BID 08/14/15 [History] Lactulose 10 gm PO QID 06/24/16 [History] Aspirin 81 mg PO DAILY 07/11/16 [History] Fluticasone/Vilanterol [Breo Ellipta 100-25 Mcg INH] 1 puff IH DAILY 07/11/16 [ History] Pantoprazole Sodium [Protonix] 40 mg PO DAILY 07/11/16 [History] Diltiazem [Cardizem] 30 mg PO TID 09/20/16 [History] Gabapentin [Neurontin] 100 mg PO BID 09/20/16 [History] Sennosides [Senna] 17.2 mg PO DAILY 09/20/16 [History] Simethicone [Gas-X] 120 mg PO BID PRN 09/20/16 [History] Folic Acid 1 mg PO DAILY #30 tablet 12/03/16 [Rx] Ferrous Gluconate 324 mg PO TID 01/12/17 [History] Warfarin [Coumadin] 2 mg PO HS 01/12/17 [History] Amino Acids/Protein Hydrolys [Pro-Stat Awc Liquid] 30 ml PO BID 01/28/17 [ History] Ipratropium/Albuterol Neb [Duoneb] 3 ml IH Q6HR PRN 01/28/17 [History] Mupirocin [Bactroban Oint] 1 appl TP MOWEFR 01/28/17 [History] Insulin ASPART [Novolog Flexpen] 0 - 10 units SQ TID #1 MDD PER SLIDING SCALE 02/06/17 [Rx] Lidocaine Patch [Lidoderm 5% patch] 1 each TP DAILY #6 adh..patch 02/06/17 [Rx] OxyCODONE Immed Rel [Roxicodone 5 MG] 5 mg PO Q6HR PRN #16 tablet 02/06/17 [Rx] Allergies ceftriaxone [From Rocephin] Allergy (Severe, Verified 02/25/17 05:02) Anaphylaxis Occured at [facility]. Required ICU transfer, intubation, and mechanical ventilation. ciprofloxacin [From Cipro] Allergy (Mild, Verified 02/25/17 05:02) Rash sulfamethoxazole [From Bactrim] Allergy (Verified 02/25/17 05:02) See Comments trimethoprim [From Bactrim] Allergy (Verified 02/25/17 05:02) See Comments rozeta Allergy (Uncoded 02/25/17 05:02) See Comments ROS unobtainable: due to endotracheal tube All Systems: A 10-system review of systems was performed and is negative for pertinent findings except as documented above in the HPI. Physical Examination Vital Signs: Vital Signs, Last 4 Hours Resp BP Pulse Ox 02/25/17 09:48 14 129/93 98 General appearance: no acute distress (Patient is intubated and awake but does not follow commands) ENT: oropharynx dry Effort: normal Inspection: normal Auscultation: bilateral: rales, rhonchi Cardiovascular: regular rate and rhythm Gastrointestinal: hypoactive bowel sounds, soft, non-tender Extremities: no cyanosis, no clubbing, edema (2+ bilaterally) unable to assess due to mental status Results - Laboratory Findings CBC and BMP: 02/25/17 07:11 02/25/17 07:11 PT/INR, D-dimer PT 16.4 Seconds (9.4-12.1) H 02/25/17 07:11 Abnormal lab findings: Abnormal lab results Hgb 10.4 g/dL (11.5-15.4) L 02/25/17 07:11 MCH 23.1 pg (28.0-33.3) L 02/25/17 07:11 MCHC 26.5 g/dL (31.6-35.5) L 02/25/17 07:11 RDW 21.6 % (11.5-14.5) H 02/25/17 07:11 MPV 8.6 fL (9.4-12.4) L 02/25/17 07:11 Immature Gran % 4.4 % (0-4) H 02/25/17 07:11 Neutrophils # 9.4 K/mcL (1.6-8.9) H 02/25/17 07:11 Lymphocytes # 0.3 K/mcL (0.6-4.6) L 02/25/17 07:11 Nucleated RBCs/100 WBC 0.6 /100 WBC (0) H 02/25/17 07:11 Immature Plt Fraction 1.0 % (1.1-6.1) L 02/25/17 07:11 Polychromasia 1+ (Not Present) A 02/25/17 07:11 Hypochromasia Present (Not Present) A 02/25/17 07:11 Basophilic Stippling 1+ (Not Present) A 02/25/17 07:11 Anisocytosis 2+ (Not Present) A 02/25/17 07:11 PT 16.4 Seconds (9.4-12.1) H 02/25/17 07:11 APTT 44.0 Seconds (26.0-36.0) H 02/25/17 07:11 VBG pH 7.08 pH Units (7.32-7.42) L* 02/25/17 05:40 VBG pCO2 92 mmHg (41-51) H 02/25/17 05:40 VBG pO2 67 mmHg (25-40) H 02/25/17 05:40 VBG HCO3 27.3 mEq/L (21-27) H 02/25/17 05:40 Sodium 129 mEq/L (136-145) L 02/25/17 07:11 Chloride 93 mEq/L (98-109) L 02/25/17 07:11 BUN 44 mg/dL (7-20) H 02/25/17 07:11 Creatinine 4.79 mg/dL (0.57-1.11) H 02/25/17 07:11 Est GFR ( Amer) 11 (> 60) L 02/25/17 07:11 Est GFR (Non-Af Amer) 9 (> 60) L 02/25/17 07:11 Glucose 283 mg/dL (70-99) H 02/25/17 07:11 POC Glucose 247 (58-89) H 02/25/17 05:03 Alkaline Phosphatase 205 Units/L (38-126) H 02/25/17 07:11 Ammonia 76 mcmol/L (18-72) H 02/25/17 05:40 B-Natriuretic Peptide 2203 pg/mL (0-100) H 02/25/17 07:11 Albumin 2.8 g/dL (3.5-5.0) L 02/25/17 07:11 Globulin 3.9 g/dL (2.4-3.5) H 02/25/17 07:11 Albumin/Globulin Ratio 0.7 (1.1-2.2) L 02/25/17 07:11 Ur Specimen Adequacy See below A 02/25/17 06:28 Urine Clarity Turbid (Clear) A 02/25/17 06:28 Urine Protein >=300 mg/dL (Neg-Trace) H 02/25/17 06:28 Urine Ketones Trace mg/dL (Negative) H 02/25/17 06:28 Urine Blood Large (Negative) H 02/25/17 06:28 Ur Leukocyte Esterase Large (Negative) H 02/25/17 06:28 Ur Culture Indicated? YES (NO) A 02/25/17 06:28 <Tyler Guthrie M - Last Filed: 02/25/17 12:43> Date of Encounter: 02/25/17 History of Present Illness HPI: Ms. Rodriguez is a 71 year old female All Systems: A 10-system review of systems was performed and is negative for pertinent findings except as documented above in the HPI. Physical Examination Vital Signs: Vital Signs, Last 4 Hours Temp Pulse Resp BP Pulse Ox 02/25/17 11:26 16 82/64 97 02/25/17 10:30 97.9 F 66 14 74/53 93 02/25/17 10:27 64 100 02/25/17 10:10 14 97 02/25/17 09:51 14 105/52 02/25/17 09:48 14 129/93 98 General appearance: other (Arousable) Eyes: nonicteric, other (Note tadeo-orbital ecchymosis (prior fall trauma several weks ago per discussion with daughter)) Inspection: other (Left SC permacath, site mildly erythematous) Auscultation: bilateral: rales Cardiovascular: murmur noted Results - Laboratory Findings CBC and BMP: 02/25/17 07:11 02/25/17 07:11 ABG ABG pH 7.37 pH Units (7.32-7.45) 02/25/17 10:20 ABG pCO2 44 mmHg (35-45) 02/25/17 10:20 ABG pO2 100 mmHg (85-104) 02/25/17 10:20 ABG O2 Saturation 98 % (95-98) 02/25/17 10:20 PT/INR, D-dimer PT 16.4 Seconds (9.4-12.1) H 02/25/17 07:11 Abnormal lab findings: Abnormal lab results Hgb 10.4 g/dL (11.5-15.4) L 02/25/17 07:11 MCH 23.1 pg (28.0-33.3) L 02/25/17 07:11 MCHC 26.5 g/dL (31.6-35.5) L 02/25/17 07:11 RDW 21.6 % (11.5-14.5) H 02/25/17 07:11 MPV 8.6 fL (9.4-12.4) L 02/25/17 07:11 Immature Gran % 4.4 % (0-4) H 02/25/17 07:11 Neutrophils # 9.4 K/mcL (1.6-8.9) H 02/25/17 07:11 Lymphocytes # 0.3 K/mcL (0.6-4.6) L 02/25/17 07:11 Nucleated RBCs/100 WBC 0.6 /100 WBC (0) H 02/25/17 07:11 Immature Plt Fraction 1.0 % (1.1-6.1) L 02/25/17 07:11 Polychromasia 1+ (Not Present) A 02/25/17 07:11 Hypochromasia Present (Not Present) A 02/25/17 07:11 Basophilic Stippling 1+ (Not Present) A 02/25/17 07:11 Anisocytosis 2+ (Not Present) A 02/25/17 07:11 PT 16.4 Seconds (9.4-12.1) H 02/25/17 07:11 APTT 44.0 Seconds (26.0-36.0) H 02/25/17 07:11 ABG Total CO2 26.8 mEq/L (20-26) H 02/25/17 10:20 VBG pH 7.08 pH Units (7.32-7.42) L* 02/25/17 05:40 VBG pCO2 92 mmHg (41-51) H 02/25/17 05:40 VBG pO2 67 mmHg (25-40) H 02/25/17 05:40 VBG HCO3 27.3 mEq/L (21-27) H 02/25/17 05:40 Sodium 129 mEq/L (136-145) L 02/25/17 07:11 Chloride 93 mEq/L (98-109) L 02/25/17 07:11 BUN 44 mg/dL (7-20) H 02/25/17 07:11 Creatinine 4.79 mg/dL (0.57-1.11) H 02/25/17 07:11 Est GFR ( Amer) 11 (> 60) L 02/25/17 07:11 Est GFR (Non-Af Amer) 9 (> 60) L 02/25/17 07:11 Glucose 283 mg/dL (70-99) H 02/25/17 07:11 POC Glucose 247 (58-89) H 02/25/17 05:03 Alkaline Phosphatase 205 Units/L (38-126) H 02/25/17 07:11 Ammonia 76 mcmol/L (18-72) H 02/25/17 05:40 B-Natriuretic Peptide 2203 pg/mL (0-100) H 02/25/17 07:11 Albumin 2.8 g/dL (3.5-5.0) L 02/25/17 07:11 Globulin 3.9 g/dL (2.4-3.5) H 02/25/17 07:11 Albumin/Globulin Ratio 0.7 (1.1-2.2) L 02/25/17 07:11 Ur Specimen Adequacy See below A 02/25/17 06:28 Urine Clarity Turbid (Clear) A 02/25/17 06:28 Urine Protein >=300 mg/dL (Neg-Trace) H 02/25/17 06:28 Urine Ketones Trace mg/dL (Negative) H 02/25/17 06:28 Urine Blood Large (Negative) H 02/25/17 06:28 Ur Leukocyte Esterase Large (Negative) H 02/25/17 06:28 Ur Culture Indicated? YES (NO) A 02/25/17 06:28
[2017-02-25 10:30] LABS: ABG Base Excess -0.1 mEq/L (-2.0 to 3.0); ABG HCO3 25.4 mEQ/L (21-27); ABG Oxygen Saturation 98 % (95-98); ABG PCO2 44 mmHg (35-45); ABG PH 7.37 pH Units (7.32-7.45); ABG PO2 100 mmHg (85-104); ABG TCO2 26.8 mEq/L (20-26)
[2017-02-25 10:36] LABS: Blood Gas FiO2 40 %
[2017-02-25 10:37] LABS: Blood Gas PEEP 5 cm H2O; Blood Gas Respiration Rate 14; Blood Gas VT 500 cc
[2017-02-25] MEDS: FentaNYL (PF) 1,000 MCG in 0.9 % Sodium Chloride 80 ML IVC SCH ×2 (11:21→21:08)
[2017-02-25] MEDS ORDERED: Dextrose Gel 15 GM PO PRN ×2 (13:07)
[2017-02-25] MEDS ORDERED: *HR* Dextrose 50 % in Water (Syg) 50 ML SYRINGE IVP PRN (13:07)
[2017-02-25] MEDS ORDERED: D5% in Water 1,000 ML IVC PRN (13:07)
[2017-02-25] MEDS ORDERED: *HR* Heparin 10,000 UNIT/10 ML VIAL IV PRN (13:07)
[2017-02-25] MEDS: Lactulose Oral Soln 20 GM/30 ML UDC GTUBE PRN (13:43)
[2017-02-25] MEDS: Lacri-Lube 3.5 GM TUBE BOTH EYES SCH ×4 (13:44→23:16)
[2017-02-25] MEDS: Insulin LISPRO 300 UNITS/3 ML VIAL SQ SCH ×4 (13:44→23:16)
[2017-02-25 13:55] LABS: Hepatitis B Surface Antibody 0.23 mIU/mL; Hepatitis B Surface Antigen Nonreactive (Nonreactive)
[2017-02-25] MEDS ORDERED: Nystatin Cream 15 GM TUBE TP PRN (13:57)
[2017-02-25] MEDS ORDERED: Albumin 25% 25gram/100mL 25 GM/100 ML IV.SOLN IVPB ONE (14:32)
[2017-02-25] MEDS ORDERED: 0.9 % Sodium Chloride 2,000 ML ONE (14:41)
[2017-02-25] MEDS ORDERED: Albumin 25% 25gram/100mL 25 GM/100 ML IV.SOLN ONE (14:47)
[2017-02-25] MEDS ORDERED: *HR* Midazolam HCl 5 MG/5 ML VIAL IVP ONE (14:56)
[2017-02-25] MEDS ORDERED: *HR* Midazolam HCl 2 MG/2 ML VIAL IVP ONE (15:46)
--- NOTE | 2017-02-25 16:10 | Procedure Note ---
Date of procedure: 02/25/17 Pre-op diagnosis: hypotension Post-op diagnosis: same Procedure: Central venous catheter placement: Verbal consent was obtained from daughter via telephone. The right internal jugular vein and the right femoral vein were surveyed using ultrasound, and the right femoral vein deemed to be a suitable target. Patient was clean and draped in the usual sterile fashion. On the ultrasound guidance, the introducer needle was passed into the right femoral vein. Dark red, non- pulsatile blood flow was returned. The guidewire was passed through the needle and into the femoral vein. Initially, there was slight resistance. The guidewire was withdrawn and the needle was repositioned. Then, the guidewire was passed through the needle without any resistance. Using the ultrasound, the guidewire was visualized within the right femoral vein. A ayden was made in the skin and soft tissues were dilated. The dilator was then removed and a 20 cm triple lumen catheter was passed over the guide wire into the vein without any resistance. The guide wire was removed intact. All 3 ports were tested and shown to draw blood and flush easily. The catheter was sutured in place at 2 points. Biopatch and sterile dressing were applied. The patient tolerated procedure well, there were no immediate complications. The procedure was supervised by Dr. Chester Soas and the attending, Dr. Tyler Guthrie, was present the entire time. Anesthesia: GETA, local (5cc of 1% lidocaine) Surgeon: Stefano Farley Prefitter Doors: Chester Sosa Estimated blood loss (cc): 15 IV fluids (cc): 10 Pathology: none sent Condition: critical Disposition: ICU
[2017-02-25] MEDS: Norepinephrine 4 MG in D5% in Water 250 ML IVC PRN (16:34)
[2017-02-25] MEDS ORDERED: *HR* Warfarin 2 MG TABLET PO SCH (18:00)
[2017-02-25] MEDS ORDERED: Warfarin perPT PO PRN (18:00)
[2017-02-25] MEDS: Chlorhexidine Rinse 15 ML MOUTHWASH MM SCH (20:02)
[2017-02-26] MEDS: Dexmedetomidine HCl 400 MCG/100 ML MLS IVC SCH ×5 (00:33→18:21)
[2017-02-26] MEDS: FentaNYL (PF) 1,000 MCG in 0.9 % Sodium Chloride 80 ML IVC SCH ×4 (02:29→22:29)
[2017-02-26 03:18] LABS: Basophils % 0.1 %; Eosinophils % 0.1 %; Immature Granulocytes % 1.3 % (0-4); Lymphocytes % 2.1 %; Nucleated Red Blood Cells 0.2 /100 WBC (0)
[2017-02-26 03:20] LABS: Hematocrit 34.9 % (35.3-44.9); Lymphocytes # 0.5 K/mcL (0.6-4.6); Mean Corpuscular HGB Conc 28.7 g/dL (31.6-35.5); Mean Corpuscular Hemoglobin 23.6 pg (28.0-33.3); Mean Corpuscular Volume 82.5 fL (83.0-100.0); Mean Platelet Volume 8.5 fL (9.4-12.4); Monocytes % 8.8 %; Neutrophils # 20.3 K/mcL (1.6-8.9); Platelet Count 230 K/mcL (140-400); Red Blood Count 4.23 M/mcL (3.82-4.97); Segmented Neutrophils % 87.6 %
[2017-02-26] MEDS: Lacri-Lube 3.5 GM TUBE BOTH EYES SCH ×6 (03:22→23:05)
[2017-02-26 03:24] LABS: INR 1.8; Prothrombin Time 19.5 Seconds (9.4-12.1)
[2017-02-26 03:33] LABS: Albumin 2.4 g/dL (3.5-5.0); Albumin/Globulin Ratio 0.7 (1.1-2.2); Bilirubin,Direct 0.4 mg/dL (0.0-0.5); Bilirubin,Indirect 0.2 mg/dL (0.0-1.2); Bilirubin,Total 0.6 mg/dL (0.2-1.2); Calcium 9.1 mg/dL (8.6-10.8); Globulin 3.3 g/dL (2.4-3.5); Magnesium 1.8 mg/dL (1.6-2.6); Potassium 3.6 mEq/L (3.5-4.5); Total Protein 5.7 g/dL (6.0-8.3)
[2017-02-26 03:37] LABS: Platelet Estimate Normal (Normal)
[2017-02-26 03:38] LABS: Anisocytosis 2+ (Not Present); Hypochromasia Present (Not Present)
[2017-02-26 03:39] LABS: Polychromasia 1+ (Not Present)
[2017-02-26 04:45] LABS: ABG HCO3 27.5 mEQ/L (21-27); ABG Oxygen Saturation 92 % (95-98); ABG PCO2 51 mmHg (35-45); ABG PH 7.34 pH Units (7.32-7.45); ABG PO2 67 mmHg (85-104); ABG TCO2 29.1 mEq/L (20-26)
[2017-02-26] MEDS: Insulin LISPRO 300 UNITS/3 ML VIAL SQ SCH ×4 (05:03→23:05)
[2017-02-26] MEDS: Norepinephrine 4 MG in D5% in Water 250 ML IVC PRN ×2 (05:31→20:33)
--- NOTE | 2017-02-26 06:24 | Electrocardiograph Report ---
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
[2017-02-26] MEDS: Chlorhexidine Rinse 15 ML MOUTHWASH MM SCH ×2 (07:35→20:32)
[2017-02-26] MEDS: Aspirin 81 MG TAB.CHEW PO SCH (07:36)
[2017-02-26] MEDS: Pantoprazole 40 MG VIAL IVPB SCH (07:36)
[2017-02-26] MEDS: Folic Acid 1 MG TABLET PO SCH (07:36)
--- NOTE | 2017-02-26 08:14 | Nephrology Progress Note ---
Date of Encounter: 02/26/17 Time of Encounter: 08:12 - Assessment and Plan (1) End-stage renal disease Current Visit: Yes Status: Acute Patient remains critically ill with acute on chronic respiratory failure in the face of end-stage renal disease cirrhosis and multiple other comorbidities. She will continue to receive dialysis every Saturday. (2) Chronic diastolic (congestive) heart failure Current Visit: No Status: Acute (3) Acute and chronic respiratory failure Current Visit: No Status: Acute Qualifiers: Respiratory failure complication: hypercapnia Qualified Code(s): J96.22 - Acute and chronic respiratory failure with hypercapnia (4) Atrial fibrillation Current Visit: No Status: Chronic Qualifiers: Atrial fibrillation type: chronic Qualified Code(s): I48.2 - Chronic atrial fibrillation Subjective Interval history: The patient is sedated and on the ventilator. She is on Levothroid at 2.5 mics per minute for blood pressure support. She did undergo dialysis yesterday. Objective - Vital Signs Vital signs: Vital Signs Temp Pulse Resp BP Pulse Ox 02/26/17 08:00 61 17 87/42 97 02/26/17 07:38 99.7 F H 02/26/17 07:00 62 17 94/50 97 02/26/17 06:00 65 17 99/52 97 02/26/17 05:41 20 99/52 97 02/26/17 05:00 68 17 107/43 97 02/26/17 04:00 99.4 F 71 17 105/42 97 02/26/17 03:38 18 105/42 97 02/26/17 03:00 70 18 105/48 97 02/26/17 02:57 67 02/26/17 02:00 67 18 107/42 97 02/26/17 01:02 64 16 90/48 96 02/26/17 00:55 17 91/48 93 02/26/17 00:00 99.9 F H 66 17 105/64 96 02/25/17 23:03 64 17 85/52 95 02/25/17 22:43 18 85/52 96 02/25/17 22:04 64 22 104/69 95 02/25/17 20:57 61 20 109/77 95 02/25/17 20:55 21 109/77 90 02/25/17 20:15 98.3 F 22 121/65 02/25/17 19:58 66 17 132/75 95 02/25/17 19:55 133/78 02/25/17 19:40 95/59 02/25/17 19:25 102/66 02/25/17 19:10 104/61 02/25/17 19:00 64 17 104/61 98 02/25/17 18:55 105/64 02/25/17 18:40 104/61 02/25/17 18:25 104/66 02/25/17 18:10 101/64 02/25/17 18:00 64 22 101/64 95 02/25/17 17:55 112/61 02/25/17 17:40 114/64 02/25/17 17:25 116/62 02/25/17 17:18 17 118/61 96 02/25/17 17:10 109/61 02/25/17 17:00 58 18 112/61 96 02/25/17 16:55 97.9 F 18 121/64 02/25/17 16:00 61 16 80/43 98 02/25/17 15:41 16 80/43 98 02/25/17 15:00 54 10 81/43 96 02/25/17 14:00 58 16 81/46 99 02/25/17 13:29 16 103/49 99 02/25/17 13:00 63 16 91/66 100 02/25/17 11:26 16 82/64 97 02/25/17 10:30 97.9 F 66 14 74/53 93 02/25/17 10:27 64 100 02/25/17 10:10 14 97 02/25/17 09:51 14 105/52 02/25/17 09:48 14 129/93 98 Intake and Output 02/25/17 02/26/17 02/26/17 23:59 07:59 15:59 Intake Total 810 / 810 570 / 570 Output Total 4600 / 4600 100 / 100 Balance -3790 / -3790 470 / 470 Intake: IV Fluids 200 / 200 570 / 570 PRECEDEX 400 mcg In 100 100 / 100 200 / 200 ml @ 0.2 MCG/KG/HR 4.389 mls/hr IVC .[id number] [facility] Rx#:[id number] FentaNYL (PF) 1,000 MCG 100 / 100 120 / 120 In 0.9 % Sodium Chloride 80 ML @ 50 MCG/HR 5 mls/ hr IVC CONT CANDE Rx#: [id number] Levophed 4 MG In Dextrose 250 / 250 5% 250 ML @ 5 MCG/MIN 18 .75 mls/hr IVC CONT PRN Rx#:[id number] Oral 0 / 0 Free Water 10 / 10 Intake, Rinseback and 600 / 600 Flushes Output: Urine 0 / 0 Total Dialysis (HD) 4600 / 4600 Output Gastric Drainage 100 / 100 Other: # Bowel Movements 0 Weight 84 kg Hemodialysis Net Fluid 4000 Removed (mL) Patient Weight 02/26/17 23:59 Weight 84 kg - General Appearance Exam: Patient is sedated on the ventilator. She does have some evidence of mild clonus. Lungs coarse breath sounds. Heart regular rhythm with a 2/6 talk ejection murmur. Abdomen is soft. There is no guarding or rigidity. There is mild lower extremity swelling. There is an immature AV fistula in the left arm in a tunnel dialysis catheter in the left chest. - Lab 02/26/17 03:10 02/26/17 03:10 Most recent lab results ABG pH 7.34 pH Units (7.32-7.45) 02/26/17 04:10 ABG pCO2 51 mmHg (35-45) H 02/26/17 04:10 ABG pO2 67 mmHg (85-104) L 02/26/17 04:10 ABG HCO3 27.5 mEQ/L (21-27) H 02/26/17 04:10 ABG O2 Saturation 92 % (95-98) L 02/26/17 04:10 Calcium 9.1 mg/dL (8.6-10.8) 02/26/17 03:10 Magnesium 1.8 mg/dL (1.6-2.6) 02/26/17 03:10 Consult Discharge Plan - Plan Referrals: Henrry Mccullough MD [Primary Care Provider] -
[2017-02-26] MEDS ORDERED: *HR* Rocuronium Bromide 100 MG/10 ML VIAL IVC ONE (09:09)
[2017-02-26] MEDS ORDERED: *HR* Etomidate 40 MG/20 ML VIAL IVP ONE (09:09)
--- NOTE | 2017-02-26 09:54 | Pulmonology Progress Note ---
<SamiraChester aragon - Last Filed: 02/26/17 11:37> Date of Encounter: 02/26/17 Time of Encounter: 09:53 Assessment and Plan (1) Acute and chronic respiratory failure Current Visit: No Status: Acute Significant hypercapnia which is likely multifactorial in the setting of opioid use with poor clearance due to cirrhosis of the liver and end-stage renal disease. Hepatic encephalopathy can also be contributing given the patient's elevated ammonia. The patient also appears to have pulmonary edema in the setting of end-stage renal disease. At this time the patient is intubated and minimally sedated but does respond to verbal stimuli when the patient is likely. Ventilator support has corrected the patient's respiratory acidosis. We will use minimal sedation to maintain comfort. Patient received dialysis yesterday and had 4 L of fluid removed. We will continue with Saturday dialysis. We will initiate lactulose therapy through the OG tube to correct any underlying hepatic encephalopathy and titrate lactulose to 2-3 movements daily. Urine culture showing gram-positive cocci however given this dialysis patient with minimal urine output patient is likely colonized. Await blood culture results. We will hold off on antibiotics at this time. Given the patient's critical illness we will discontinue Coumadin and start heparin drip for anticoagulation which will allow us spine or control and inability to stop anticoagulation in the event of an adverse effect. Spoke with the patient's daughter at bedside who is the medical power of attorney general and she stated that her mother has expressed multiple times in the past that she wishes to remain a full code and have everything done in the event of an arrest. According to records on past visits this is consistent with the patient's previous wishes. Qualifiers: Respiratory failure complication: hypercapnia Qualified Code(s): J96.22 - Acute and chronic respiratory failure with hypercapnia (2) Acute encephalopathy Current Visit: No Status: Acute (3) Cirrhosis Current Visit: No Status: Chronic Qualifiers: Hepatic cirrhosis type: other cirrhosis Qualified Code(s): K74.69 - Other cirrhosis of liver (4) DM (diabetes mellitus), type 2 Current Visit: No Status: Chronic 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 mellitus terminal clerk insulin use: with terminal clerk use Chronic kidney disease stage: on chronic dialysis Qualified Code(s): E11.22 - Type 2 diabetes mellitus with diabetic chronic kidney disease; N18.6 - End stage renal disease; Z79.4 - terminal clerk (current) use of insulin; Z99.2 - Dependence on renal dialysis (5) Atrial fibrillation Current Visit: No Status: Chronic Qualifiers: Atrial fibrillation type: chronic Qualified Code(s): I48.2 - Chronic atrial fibrillation Subjective Principal diagnosis: Encephalopathy Interval history: Patient seen and examined at bedside. Patient remains intubated and sedated. Patient completed dialysis and had 4 L of fluid removed. No acute events overnight. Objective PUL Vital signs: Last Vital Signs Temp 99.7 F H 02/26/17 07:38 Pulse 63 02/26/17 09:00 Resp 19 02/26/17 09:03 BP 93/43 02/26/17 09:03 Pulse Ox 97 02/26/17 09:03 General appearance: no acute distress ENT: oropharynx moist Effort: normal Auscultation: bilateral: other (coarse breath sounds) Cardiovascular: irregular rhythm Gastrointestinal: normoactive bowel sounds, soft, non-tender, non-distended Extremities: no cyanosis, no clubbing, edema (trace) unable to assess due to mental status Ventilator Settings Ventilator Settings: Ventilator Settings, Last 8 Hours Ventilator Mode A/C Ventilator Mode A/C Ventilator Mode A/C Ventilator Mode A/C Ventilator Mode A/C Ventilator Mode A/C Ventilator Mode A/C Ventilator Tidal Volume 350 Setting Ventilator Tidal Volume 350 Setting Ventilator Tidal Volume 350 Setting Ventilator Tidal Volume 350 Setting Ventilator Tidal Volume 350 Setting Ventilator Tidal Volume 350 Setting Ventilator Tidal Volume 350 Setting Ventilator Tidal Volume 350 Setting Ventilator Tidal Volume 350 Setting Ventilator Tidal Volume 350 Setting Ventilator Respiratory Rate 16 Setting Ventilator Respiratory Rate 16 Setting Ventilator Respiratory Rate 16 Setting Ventilator Respiratory Rate 16 Setting Ventilator Respiratory Rate 16 Setting Ventilator Respiratory Rate 16 Setting Ventilator Respiratory Rate 16 Setting Ventilator Respiratory Rate 16 Setting Ventilator Respiratory Rate 16 Setting Ventilator Respiratory Rate 16 Setting Actual Respiratory Rate 17 Actual Respiratory Rate 21 Actual Respiratory Rate 17 Actual Respiratory Rate 17 Actual Respiratory Rate 18 Actual Respiratory Rate 17 Actual Respiratory Rate 17 Actual Respiratory Rate 17 Actual Respiratory Rate 18 Actual Respiratory Rate 18 Positive End Expiratory 5 Pressure Positive End Expiratory 5 Pressure Positive End Expiratory 5 Pressure Positive End Expiratory 5 Pressure Positive End Expiratory 5 Pressure Positive End Expiratory 5 Pressure Positive End Expiratory 5 Pressure Positive End Expiratory 5 Pressure Positive End Expiratory 5 Pressure Positive End Expiratory 5 Pressure Peak Inspiratory Airway 30 Pressure Peak Inspiratory Airway 26 Pressure Peak Inspiratory Airway 29 Pressure Peak Inspiratory Airway 22 Pressure Peak Inspiratory Airway 26 Pressure Peak Inspiratory Airway 27 Pressure Peak Inspiratory Airway 26 Pressure Peak Inspiratory Airway 26 Pressure Peak Inspiratory Airway 26 Pressure Peak Inspiratory Airway 23 Pressure Peak Inspiratory Airway 28 Pressure Results - Laboratory Findings CBC and BMP: 02/26/17 03:10 02/26/17 03:10 ABG ABG pH 7.34 pH Units (7.32-7.45) 02/26/17 04:10 ABG pCO2 51 mmHg (35-45) H 02/26/17 04:10 ABG pO2 67 mmHg (85-104) L 02/26/17 04:10 ABG O2 Saturation 92 % (95-98) L 02/26/17 04:10 PT/INR, D-dimer PT 19.5 Seconds (9.4-12.1) H 02/26/17 03:10 Abnormal lab findings: Abnormal lab results WBC 23.2 K/mcL (4.3-11.1) H D 02/26/17 03:10 Hgb 10.0 g/dL (11.5-15.4) L 02/26/17 03:10 Hct 34.9 % (35.3-44.9) L 02/26/17 03:10 MCV 82.5 fL (83.0-100.0) L 02/26/17 03:10 MCH 23.6 pg (28.0-33.3) L 02/26/17 03:10 MCHC 28.7 g/dL (31.6-35.5) L 02/26/17 03:10 RDW 22.0 % (11.5-14.5) H 02/26/17 03:10 MPV 8.5 fL (9.4-12.4) L 02/26/17 03:10 Neutrophils # 20.3 K/mcL (1.6-8.9) H 02/26/17 03:10 Lymphocytes # 0.5 K/mcL (0.6-4.6) L 02/26/17 03:10 Monocytes # 2.0 K/mcL (0.0-1.3) H 02/26/17 03:10 Nucleated RBCs/100 WBC 0.2 /100 WBC (0) H 02/26/17 03:10 Immature Plt Fraction 1.0 % (1.1-6.1) L 02/25/17 07:11 Polychromasia 1+ (Not Present) A 02/26/17 03:10 Hypochromasia Present (Not Present) A 02/26/17 03:10 Basophilic Stippling 1+ (Not Present) A 02/25/17 07:11 Anisocytosis 2+ (Not Present) A 02/26/17 03:10 PT 19.5 Seconds (9.4-12.1) H 02/26/17 03:10 APTT 44.0 Seconds (26.0-36.0) H 02/25/17 07:11 ABG pCO2 51 mmHg (35-45) H 02/26/17 04:10 ABG pO2 67 mmHg (85-104) L 02/26/17 04:10 ABG HCO3 27.5 mEQ/L (21-27) H 02/26/17 04:10 ABG Total CO2 29.1 mEq/L (20-26) H 02/26/17 04:10 ABG O2 Saturation 92 % (95-98) L 02/26/17 04:10 VBG pH 7.08 pH Units (7.32-7.42) L* 02/25/17 05:40 VBG pCO2 92 mmHg (41-51) H 02/25/17 05:40 VBG pO2 67 mmHg (25-40) H 02/25/17 05:40 VBG HCO3 27.3 mEq/L (21-27) H 02/25/17 05:40 Sodium 132 mEq/L (136-145) L 02/26/17 03:10 Chloride 96 mEq/L (98-109) L 02/26/17 03:10 BUN 27 mg/dL (7-20) H D 02/26/17 03:10 Creatinine 3.55 mg/dL (0.57-1.11) H 02/26/17 03:10 Est GFR ( Amer) 15 (> 60) L 02/26/17 03:10 Est GFR (Non-Af Amer) 13 (> 60) L 02/26/17 03:10 Glucose 198 mg/dL (70-99) H 02/26/17 03:10 POC Glucose 207 (58-89) H 02/26/17 04:52 Alkaline Phosphatase 175 Units/L (38-126) H 02/26/17 03:10 Ammonia 76 mcmol/L (18-72) H 02/25/17 05:40 B-Natriuretic Peptide 2203 pg/mL (0-100) H 02/25/17 07:11 Serum Total Protein 5.7 g/dL (6.0-8.3) L 02/26/17 03:10 Albumin 2.4 g/dL (3.5-5.0) L 02/26/17 03:10 Albumin/Globulin Ratio 0.7 (1.1-2.2) L 02/26/17 03:10 Ur Specimen Adequacy See below A 02/25/17 06:28 Urine Clarity Turbid (Clear) A 02/25/17 06:28 Urine Protein >=300 mg/dL (Neg-Trace) H 02/25/17 06:28 Urine Ketones Trace mg/dL (Negative) H 02/25/17 06:28 Urine Blood Large (Negative) H 02/25/17 06:28 Ur Leukocyte Esterase Large (Negative) H 02/25/17 06:28 Ur Culture Indicated? YES (NO) A 02/25/17 06:28 - Microbiology Findings Microbiology Findings: Microbiology, Last 48 Hours 02/25/17 14:20 Sputum Culture - Preliminary Sputum - Clinical Findings Intake & Output: Intake & Output 02/25/17 02/26/17 02/26/17 23:59 07:59 15:59 Intake Total 810 / 810 570 / 570 Output Total 4600 / 4600 100 / 100 Balance -3790 / -3790 470 / 470 Weight 84 kg Consult Discharge Plan - Plan Referrals: Henrry Mccullough MD [Primary Care Provider] - <Tyler Guthrie - Last Filed: 02/26/17 12:33> Date of Encounter: 02/26/17 Objective PUL Vital signs: Last Vital Signs Temp 99.9 F H 02/26/17 11:56 Pulse 67 02/26/17 10:00 Resp 22 02/26/17 11:30 BP 101/54 02/26/17 11:30 Pulse Ox 96 02/26/17 11:30 Ventilator Settings Ventilator Settings: Ventilator Settings, Last 8 Hours Ventilator Mode A/C Ventilator Mode A/C Ventilator Mode A/C Ventilator Mode A/C Ventilator Mode A/C Ventilator Mode A/C Ventilator Tidal Volume 350 Setting Ventilator Tidal Volume 350 Setting Ventilator Tidal Volume 350 Setting Ventilator Tidal Volume 350 Setting Ventilator Tidal Volume 350 Setting Ventilator Tidal Volume 350 Setting Ventilator Tidal Volume 350 Setting Ventilator Respiratory Rate 16 Setting Ventilator Respiratory Rate 16 Setting Ventilator Respiratory Rate 16 Setting Ventilator Respiratory Rate 16 Setting Ventilator Respiratory Rate 16 Setting Ventilator Respiratory Rate 16 Setting Ventilator Respiratory Rate 16 Setting Actual Respiratory Rate 17 Actual Respiratory Rate 17 Actual Respiratory Rate 17 Actual Respiratory Rate 17 Actual Respiratory Rate 21 Actual Respiratory Rate 17 Actual Respiratory Rate 17 Actual Respiratory Rate 18 Actual Respiratory Rate 17 Positive End Expiratory 5 Pressure Positive End Expiratory 5 Pressure Positive End Expiratory 5 Pressure Positive End Expiratory 5 Pressure Positive End Expiratory 5 Pressure Positive End Expiratory 5 Pressure Positive End Expiratory 5 Pressure Peak Inspiratory Airway 24 Pressure Peak Inspiratory Airway 23 Pressure Peak Inspiratory Airway 30 Pressure Peak Inspiratory Airway 30 Pressure Peak Inspiratory Airway 26 Pressure Peak Inspiratory Airway 29 Pressure Peak Inspiratory Airway 22 Pressure Peak Inspiratory Airway 26 Pressure Peak Inspiratory Airway 27 Pressure Peak Inspiratory Airway 26 Pressure Results - Laboratory Findings CBC and BMP: 02/26/17 03:10 02/26/17 03:10 ABG ABG pH 7.34 pH Units (7.32-7.45) 02/26/17 04:10 ABG pCO2 51 mmHg (35-45) H 02/26/17 04:10 ABG pO2 67 mmHg (85-104) L 02/26/17 04:10 ABG O2 Saturation 92 % (95-98) L 02/26/17 04:10 PT/INR, D-dimer PT 19.5 Seconds (9.4-12.1) H 02/26/17 03:10 Abnormal lab findings: Abnormal lab results WBC 23.2 K/mcL (4.3-11.1) H D 02/26/17 03:10 Hgb 10.0 g/dL (11.5-15.4) L 02/26/17 03:10 Hct 34.9 % (35.3-44.9) L 02/26/17 03:10 MCV 82.5 fL (83.0-100.0) L 02/26/17 03:10 MCH 23.6 pg (28.0-33.3) L 02/26/17 03:10 MCHC 28.7 g/dL (31.6-35.5) L 02/26/17 03:10 RDW 22.0 % (11.5-14.5) H 02/26/17 03:10 MPV 8.5 fL (9.4-12.4) L 02/26/17 03:10 Neutrophils # 20.3 K/mcL (1.6-8.9) H 02/26/17 03:10 Lymphocytes # 0.5 K/mcL (0.6-4.6) L 02/26/17 03:10 Monocytes # 2.0 K/mcL (0.0-1.3) H 02/26/17 03:10 Nucleated RBCs/100 WBC 0.2 /100 WBC (0) H 02/26/17 03:10 Immature Plt Fraction 1.0 % (1.1-6.1) L 02/25/17 07:11 Polychromasia 1+ (Not Present) A 02/26/17 03:10 Hypochromasia Present (Not Present) A 02/26/17 03:10 Basophilic Stippling 1+ (Not Present) A 02/25/17 07:11 Anisocytosis 2+ (Not Present) A 02/26/17 03:10 PT 19.5 Seconds (9.4-12.1) H 02/26/17 03:10 APTT 44.0 Seconds (26.0-36.0) H 02/25/17 07:11 ABG pCO2 51 mmHg (35-45) H 02/26/17 04:10 ABG pO2 67 mmHg (85-104) L 02/26/17 04:10 ABG HCO3 27.5 mEQ/L (21-27) H 02/26/17 04:10 ABG Total CO2 29.1 mEq/L (20-26) H 02/26/17 04:10 ABG O2 Saturation 92 % (95-98) L 02/26/17 04:10 VBG pH 7.08 pH Units (7.32-7.42) L* 02/25/17 05:40 VBG pCO2 92 mmHg (41-51) H 02/25/17 05:40 VBG pO2 67 mmHg (25-40) H 02/25/17 05:40 VBG HCO3 27.3 mEq/L (21-27) H 02/25/17 05:40 Sodium 132 mEq/L (136-145) L 02/26/17 03:10 Chloride 96 mEq/L (98-109) L 02/26/17 03:10 BUN 27 mg/dL (7-20) H D 02/26/17 03:10 Creatinine 3.55 mg/dL (0.57-1.11) H 02/26/17 03:10 Est GFR ( Amer) 15 (> 60) L 02/26/17 03:10 Est GFR (Non-Af Amer) 13 (> 60) L 02/26/17 03:10 Glucose 198 mg/dL (70-99) H 02/26/17 03:10 POC Glucose 207 (58-89) H 02/26/17 04:52 Alkaline Phosphatase 175 Units/L (38-126) H 02/26/17 03:10 Ammonia 76 mcmol/L (18-72) H 02/25/17 05:40 B-Natriuretic Peptide 2203 pg/mL (0-100) H 02/25/17 07:11 Serum Total Protein 5.7 g/dL (6.0-8.3) L 02/26/17 03:10 Albumin 2.4 g/dL (3.5-5.0) L 02/26/17 03:10 Albumin/Globulin Ratio 0.7 (1.1-2.2) L 02/26/17 03:10 Ur Specimen Adequacy See below A 02/25/17 06:28 Urine Clarity Turbid (Clear) A 02/25/17 06:28 Urine Protein >=300 mg/dL (Neg-Trace) H 02/25/17 06:28 Urine Ketones Trace mg/dL (Negative) H 02/25/17 06:28 Urine Blood Large (Negative) H 02/25/17 06:28 Ur Leukocyte Esterase Large (Negative) H 02/25/17 06:28 Ur Culture Indicated? YES (NO) A 02/25/17 06:28 - Microbiology Findings Microbiology Findings: Microbiology, Last 48 Hours 02/25/17 14:20 Sputum Culture - Preliminary Sputum Gram Negative Shad - Clinical Findings Intake & Output: Intake & Output 02/25/17 02/26/17 02/26/17 23:59 07:59 15:59 Intake Total 810 / 810 570 / 570 100 / 100 Output Total 4600 / 4600 100 / 100 Balance -3790 / -3790 470 / 470 100 / 100 Weight 84 kg
[2017-02-26] MEDS ORDERED: *HR* Heparin 5,000 UNIT/ML VIAL ONE (11:02)
[2017-02-26] MEDS ORDERED: *HR* Heparin 5,000 UNIT/ML VIAL IVP PRN ×2 (11:11)
[2017-02-26] MEDS ORDERED: *HR* Heparin 5,000 UNIT/ML VIAL IVP ONE (11:11)
[2017-02-26] MEDS: Heparin 25,000 UNIT/500 ML D5W 25,000 UNIT/500 ML MLS IVC SCH (12:26)
--- NOTE | 2017-02-26 16:37 | Event Note ---
Date of Encounter: 02/26/17 Time of Encounter: 15:00 Desaturation necessitating escalation of FIO2. Follow up CXR notable for worsening opacification of the left chest. Reviewed with family, proceed with bronchosocpy and possibly thoracentesis. Verbal consent obtained form family ( daughters) for these interventions. E Timasco
--- NOTE | 2017-02-26 16:41 | Procedure Note ---
Date of procedure: 02/26/17 Pre-op diagnosis: atelectasis Post-op diagnosis: same Procedure: Bronchoscope passed through pre-existing oral ETT, mucoid secretions noted within the left lower lobe partially obstructing the airway. The underlying mucosa appeared normal, no evidence of inflammation, purulence or friability. Extrinsic compression noted within all BP segments of the left lower lobe. Following vigorous washing technique, complete patency of of bronchial tree re- established. No untoward events. E Cordasco
--- NOTE | 2017-02-26 17:00 | Procedure Note ---
<Stefano Farley - Last Filed: 02/26/17 16:44> Date of procedure: 02/26/17 Pre-op diagnosis: pleural effusion Post-op diagnosis: same Procedure: After the informed consent was received from the patient's daughters, the patient's left side posteriorly was prepped and draped in a sterile manner after the appropriate infiltration level was confirmed by ultrasound. 1% lidocaine was used to anesthetize the surrounding skin. The pleural fluid was located with an 18 gauge spinal needle and blood tinged higinio fluid was obtained. After this, a small skin incision was made with a safety scalpel. The long catheter passed into the pleural space over a longer needle. The thoracentesis catheter was then threaded without difficulty. The patient had 1500 mL of blood tinged higinio fluid removed. The attending, Dr. Tyler Guthrie , was present for the entire procedure. A postprocedure ultrasound was performed and showed mild effusion present but no evidence of pneumothorax. There were no immediate complications. Anesthesia: GETA Surgeon: Stefano Farley Building Attendant: Tyler Guthrie Condition: stable Disposition: ICU <Tyler Guthrie - Last Filed: 02/26/17 17:12> Procedure: US evaluation of the chest following procedure revealed minimal residual pleural effusion, no evidence of pneumothorax. Tacos Guthrie
--- NOTE | 2017-02-26 17:05 | Event Note ---
Date of Encounter: 02/26/17 Time of Encounter: 17:04 Aztreonam ordered given clinical course, ID of GNB (multiple reported allergies ) from sputum specimen.
[2017-02-26 17:45] LABS: Amylase,Pleural Fluid 21 Units/L (No Ref Range); Glucose,Pleural Fluid 171 mg/dL (No Ref Range); LDH,Pleural Fluid 115 Units/L (No Ref Range); Triglycerides, Pleural Fluid 25 mg/dL (No Ref Range)
[2017-02-26 17:50] LABS: Total Protein,Pleural Fluid 2.6 g/dL (No Ref Range)
[2017-02-26] MEDS ORDERED: Aztreonam 500 MG in D5% in Water (Mini-Bag+) 100 ML IVPB SCH (18:00)
[2017-02-26 18:01] LABS: Appearance of Pleural Fl Hazy (Clear)
[2017-02-26] MEDS: Lactulose Oral Soln 20 GM/30 ML UDC GTUBE PRN (18:08)
[2017-02-26] MEDS: Aztreonam 500 MG in D5% in Water 100 ML IVPB SCH (18:09)
[2017-02-27] MEDS: Dexmedetomidine HCl 400 MCG/100 ML MLS IVC SCH ×3 (00:14→13:47)
[2017-02-27] MEDS: Aztreonam 500 MG in D5% in Water 100 ML IVPB SCH ×4 (01:00→19:43)
[2017-02-27] MEDS: Lacri-Lube 3.5 GM TUBE BOTH EYES SCH ×6 (03:01→23:53)
[2017-02-27 03:21] LABS: Nucleated Red Blood Cells 0.1 /100 WBC (0)
[2017-02-27 03:22] LABS: Basophils # 0.1 K/mcL (0.0-0.2); Basophils % 0.2 %; Hemoglobin 9.8 g/dL (11.5-15.4); Immature Granulocytes % 1.7 % (0-4); Lymphocytes # 0.9 K/mcL (0.6-4.6); Lymphocytes % 2.9 %; Mean Corpuscular HGB Conc 28.8 g/dL (31.6-35.5); Mean Corpuscular Hemoglobin 23.6 pg (28.0-33.3); Mean Corpuscular Volume 81.9 fL (83.0-100.0); Mean Platelet Volume 9.1 fL (9.4-12.4); Monocytes # 2.5 K/mcL (0.0-1.3); Monocytes % 8.2 %; Neutrophils # 26.5 K/mcL (1.6-8.9); Platelet Count 257 K/mcL (140-400); Red Blood Count 4.15 M/mcL (3.82-4.97); Red Cell Distribution Width 21.8 % (11.5-14.5)
[2017-02-27 03:29] LABS: INR 2.5; Prothrombin Time 27.7 Seconds (9.4-12.1)
[2017-02-27 03:33] LABS: Ionized Calcium 1.25 mmol/L (1.15-1.35)
[2017-02-27 03:42] LABS: Calcium 9.1 mg/dL (8.6-10.8); Magnesium 1.8 mg/dL (1.6-2.6); Phosphorous 4.4 mg/dL (2.3-4.7); Potassium 3.5 mEq/L (3.5-4.5)
[2017-02-27 03:52] LABS: Hypochromasia Present (Not Present); Platelet Estimate Normal (Normal); Polychromasia 1+ (Not Present)
[2017-02-27] MEDS: FentaNYL (PF) 1,000 MCG in 0.9 % Sodium Chloride 80 ML IVC SCH ×3 (04:00→23:23)
[2017-02-27] MEDS: Lactulose Oral Soln 20 GM/30 ML UDC GTUBE PRN (04:20)
[2017-02-27] MEDS: Insulin LISPRO 300 UNITS/3 ML VIAL SQ SCH ×3 (05:07→18:58)
--- NOTE | 2017-02-27 07:56 | Pulmonology Progress Note ---
<NuviaChester conner Majo - Last Filed: 02/27/17 08:41> Date of Encounter: 02/27/17 Time of Encounter: 07:54 Assessment and Plan (1) Acute and chronic respiratory failure Current Visit: No Status: Acute Significant hypercapnia which is likely multifactorial in the setting of opioid use with poor clearance due to cirrhosis of the liver and end-stage renal disease. Hepatic encephalopathy can also be contributing given the patient's elevated ammonia. The patient also appears to have pulmonary edema in the setting of end-stage renal disease. At this time the patient is intubated and minimally sedated but does respond to verbal stimuli when the patient is likely. Ventilator support has corrected the patient's respiratory acidosis. We will use minimal sedation to maintain comfort. Attempt CPAP trial after dialysis. Patient continues to require minimal pressor support. We will wean as tolerated. Patient received dialysis Saturday and had 4 L of fluid removed. Plan for dialysis today with further fluid removal. We will initiate lactulose therapy through the OG tube to correct any underlying hepatic encephalopathy and titrate lactulose to 2-3 movements daily. Recheck ammonia today Urine culture showing gram-positive cocci however given this dialysis patient with minimal urine output patient is likely colonized. Blood culture pending. Sputum culture shows Kluyvera ascobata which could possibly be a contaminant but given the patient's clinical status and leukocytosis we have initiated aztreonam. Given the patient's critical illness we will discontinue Coumadin and start heparin drip for anticoagulation which will allow us spine or control and inability to stop anticoagulation in the event of an adverse effect. Spoke with the patient's daughter at bedside who is the medical power of divorce attorney and she stated that her mother has expressed multiple times in the past that she wishes to remain a full code and have everything done in the event of an arrest. According to records on past visits this is consistent with the patient's previous wishes. 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 Patient remains intubated and sedated. Patient completed dialysis on Saturday and had 4 L of fluid removed, plan for dialysis again today. No acute events overnight. Objective PUL Vital signs: Last Vital Signs Temp 99.6 F 02/27/17 05:01 Pulse 69 02/27/17 06:01 Resp 16 02/27/17 06:01 BP 105/49 02/27/17 06:01 Pulse Ox 96 02/27/17 06:01 General appearance: no acute distress (Intubated and sedated) ENT: oropharynx moist Effort: normal Auscultation: bilateral: other (Coarse breath sounds) Cardiovascular: irregular rhythm Gastrointestinal: normoactive bowel sounds, soft, non-tender, non-distended Extremities: no cyanosis, no clubbing, edema (Trace) unable to assess due to mental status Ventilator Settings Ventilator Settings: Ventilator Settings, Last 8 Hours Ventilator Mode A/C Ventilator Mode A/C Ventilator Mode A/C Ventilator Mode A/C Ventilator Mode A/C Ventilator Mode A/C Ventilator Mode A/C Ventilator Mode A/C Ventilator Mode A/C Ventilator Tidal Volume 330 Setting Ventilator Tidal Volume 330 Setting Ventilator Tidal Volume 330 Setting Ventilator Tidal Volume 330 Setting Ventilator Tidal Volume 330 Setting Ventilator Tidal Volume 330 Setting Ventilator Tidal Volume 330 Setting Ventilator Tidal Volume 330 Setting Ventilator Tidal Volume 330 Setting Ventilator Respiratory Rate 16 Setting Ventilator Respiratory Rate 16 Setting Ventilator Respiratory Rate 16 Setting Ventilator Respiratory Rate 16 Setting Ventilator Respiratory Rate 16 Setting Ventilator Respiratory Rate 16 Setting Ventilator Respiratory Rate 16 Setting Ventilator Respiratory Rate 16 Setting Ventilator Respiratory Rate 16 Setting Actual Respiratory Rate 17 Actual Respiratory Rate 17 Actual Respiratory Rate 16 Actual Respiratory Rate 17 Actual Respiratory Rate 17 Actual Respiratory Rate 17 Actual Respiratory Rate 17 Actual Respiratory Rate 16 Actual Respiratory Rate 16 Positive End Expiratory 5 Pressure Positive End Expiratory 5 Pressure Positive End Expiratory 5 Pressure Positive End Expiratory 5 Pressure Positive End Expiratory 5 Pressure Positive End Expiratory 5 Pressure Positive End Expiratory 5 Pressure Positive End Expiratory 5 Pressure Positive End Expiratory 5 Pressure Peak Inspiratory Airway 36 Pressure Peak Inspiratory Airway 36 Pressure Peak Inspiratory Airway 33 Pressure Peak Inspiratory Airway 36 Pressure Peak Inspiratory Airway 36 Pressure Peak Inspiratory Airway 36 Pressure Peak Inspiratory Airway 37 Pressure Peak Inspiratory Airway 31 Pressure Peak Inspiratory Airway 31 Pressure Results - Laboratory Findings CBC and BMP: 02/27/17 03:00 02/27/17 03:00 ABG ABG pH 7.34 pH Units (7.32-7.45) 02/26/17 04:10 ABG pCO2 51 mmHg (35-45) H 02/26/17 04:10 ABG pO2 67 mmHg (85-104) L 02/26/17 04:10 ABG O2 Saturation 92 % (95-98) L 02/26/17 04:10 PT/INR, D-dimer PT 27.7 Seconds (9.4-12.1) H 02/27/17 03:00 Abnormal lab findings: Abnormal lab results WBC 30.5 K/mcL (4.3-11.1) H* 02/27/17 03:00 Hgb 9.8 g/dL (11.5-15.4) L 02/27/17 03:00 Hct 34.0 % (35.3-44.9) L 02/27/17 03:00 MCV 81.9 fL (83.0-100.0) L 02/27/17 03:00 MCH 23.6 pg (28.0-33.3) L 02/27/17 03:00 MCHC 28.8 g/dL (31.6-35.5) L 02/27/17 03:00 RDW 21.8 % (11.5-14.5) H 02/27/17 03:00 MPV 9.1 fL (9.4-12.4) L 02/27/17 03:00 Neutrophils # 26.5 K/mcL (1.6-8.9) H 02/27/17 03:00 Monocytes # 2.5 K/mcL (0.0-1.3) H 02/27/17 03:00 Nucleated RBCs/100 WBC 0.1 /100 WBC (0) H 02/27/17 03:00 Immature Plt Fraction 1.0 % (1.1-6.1) L 02/25/17 07:11 Polychromasia 1+ (Not Present) A 02/27/17 03:00 Hypochromasia Present (Not Present) A 02/27/17 03:00 Basophilic Stippling 1+ (Not Present) A 02/25/17 07:11 Anisocytosis 2+ (Not Present) A 02/26/17 03:10 PT 27.7 Seconds (9.4-12.1) H 02/27/17 03:00 APTT 102.6 Seconds (26.0-36.0) H 02/27/17 03:00 ABG pCO2 51 mmHg (35-45) H 02/26/17 04:10 ABG pO2 67 mmHg (85-104) L 02/26/17 04:10 ABG HCO3 27.5 mEQ/L (21-27) H 02/26/17 04:10 ABG Total CO2 29.1 mEq/L (20-26) H 02/26/17 04:10 ABG O2 Saturation 92 % (95-98) L 02/26/17 04:10 VBG pH 7.08 pH Units (7.32-7.42) L* 02/25/17 05:40 VBG pCO2 92 mmHg (41-51) H 02/25/17 05:40 VBG pO2 67 mmHg (25-40) H 02/25/17 05:40 VBG HCO3 27.3 mEq/L (21-27) H 02/25/17 05:40 Sodium 132 mEq/L (136-145) L 02/27/17 03:00 Chloride 96 mEq/L (98-109) L 02/27/17 03:00 BUN 39 mg/dL (7-20) H D 02/27/17 03:00 Creatinine 4.39 mg/dL (0.57-1.11) H 02/27/17 03:00 Est GFR ( Amer) 12 (> 60) L 02/27/17 03:00 Est GFR (Non-Af Amer) 10 (> 60) L 02/27/17 03:00 Glucose 225 mg/dL (70-99) H 02/27/17 03:00 POC Glucose 222 (58-89) H 02/27/17 05:06 Alkaline Phosphatase 175 Units/L (38-126) H 02/26/17 03:10 Ammonia 76 mcmol/L (18-72) H 02/25/17 05:40 B-Natriuretic Peptide 2203 pg/mL (0-100) H 02/25/17 07:11 Serum Total Protein 5.7 g/dL (6.0-8.3) L 02/26/17 03:10 Albumin 2.4 g/dL (3.5-5.0) L 02/26/17 03:10 Albumin/Globulin Ratio 0.7 (1.1-2.2) L 02/26/17 03:10 Ur Specimen Adequacy See below A 02/25/17 06:28 Urine Clarity Turbid (Clear) A 02/25/17 06:28 Urine Protein >=300 mg/dL (Neg-Trace) H 02/25/17 06:28 Urine Ketones Trace mg/dL (Negative) H 02/25/17 06:28 Urine Blood Large (Negative) H 02/25/17 06:28 Ur Leukocyte Esterase Large (Negative) H 02/25/17 06:28 Ur Culture Indicated? YES (NO) A 02/25/17 06:28 Pleural Appearance Hazy (Clear) A 02/26/17 15:30 Pleural RBC 0.020 M/mcL (0.000-0.002) H 02/26/17 15:30 - Microbiology Findings Microbiology Findings: Microbiology, Last 48 Hours 02/25/17 14:20 Sputum Culture - Final Sputum Kluyvera ascorbata 02/26/17 15:30 Body Fluid Culture - Preliminary Pleural Fluid - Clinical Findings Intake & Output: Intake & Output 02/26/17 02/26/17 02/27/17 15:59 23:59 07:59 Intake Total 260 / 260 660 / 660 870 / 870 Output Total 1500 / 1500 100 / 100 Balance -1240 / -1240 560 / 560 870 / 870 Weight 82 kg - Stroke Is the patient on any antithrombotics?: Yes Consult Discharge Plan - Plan Referrals: Henrry Mccullough MD [Primary Care Provider] - <Tyler Guthrie M - Last Filed: 02/27/17 09:31> Date of Encounter: 02/27/17 Objective PUL Vital signs: Last Vital Signs Temp 98.6 F 02/27/17 08:00 Pulse 64 02/27/17 09:00 Resp 16 02/27/17 09:00 BP 100/52 02/27/17 09:00 Pulse Ox 97 02/27/17 09:00 Ventilator Settings Ventilator Settings: Ventilator Settings, Last 8 Hours Ventilator Mode A/C Ventilator Mode A/C Ventilator Mode A/C Ventilator Mode A/C Ventilator Mode A/C Ventilator Mode A/C Ventilator Mode A/C Ventilator Mode A/C Ventilator Tidal Volume 350 Setting Ventilator Tidal Volume 350 Setting Ventilator Tidal Volume 330 Setting Ventilator Tidal Volume 330 Setting Ventilator Tidal Volume 330 Setting Ventilator Tidal Volume 330 Setting Ventilator Tidal Volume 330 Setting Ventilator Tidal Volume 330 Setting Ventilator Respiratory Rate 16 Setting Ventilator Respiratory Rate 16 Setting Ventilator Respiratory Rate 16 Setting Ventilator Respiratory Rate 16 Setting Ventilator Respiratory Rate 16 Setting Ventilator Respiratory Rate 16 Setting Ventilator Respiratory Rate 16 Setting Ventilator Respiratory Rate 16 Setting Actual Respiratory Rate 16 Actual Respiratory Rate 16 Actual Respiratory Rate 17 Actual Respiratory Rate 17 Actual Respiratory Rate 16 Actual Respiratory Rate 17 Actual Respiratory Rate 17 Actual Respiratory Rate 17 Positive End Expiratory 5 Pressure Positive End Expiratory 5 Pressure Positive End Expiratory 5 Pressure Positive End Expiratory 5 Pressure Positive End Expiratory 5 Pressure Positive End Expiratory 5 Pressure Positive End Expiratory 5 Pressure Positive End Expiratory 5 Pressure Peak Inspiratory Airway 31 Pressure Peak Inspiratory Airway 29 Pressure Peak Inspiratory Airway 36 Pressure Peak Inspiratory Airway 36 Pressure Peak Inspiratory Airway 33 Pressure Peak Inspiratory Airway 36 Pressure Peak Inspiratory Airway 36 Pressure Peak Inspiratory Airway 36 Pressure Results - Laboratory Findings CBC and BMP: 02/27/17 03:00 02/27/17 03:00 ABG ABG pH 7.34 pH Units (7.32-7.45) 02/26/17 04:10 ABG pCO2 51 mmHg (35-45) H 02/26/17 04:10 ABG pO2 67 mmHg (85-104) L 02/26/17 04:10 ABG O2 Saturation 92 % (95-98) L 02/26/17 04:10 PT/INR, D-dimer PT 27.7 Seconds (9.4-12.1) H 02/27/17 03:00 Abnormal lab findings: Abnormal lab results WBC 30.5 K/mcL (4.3-11.1) H* 02/27/17 03:00 Hgb 9.8 g/dL (11.5-15.4) L 02/27/17 03:00 Hct 34.0 % (35.3-44.9) L 02/27/17 03:00 MCV 81.9 fL (83.0-100.0) L 02/27/17 03:00 MCH 23.6 pg (28.0-33.3) L 02/27/17 03:00 MCHC 28.8 g/dL (31.6-35.5) L 02/27/17 03:00 RDW 21.8 % (11.5-14.5) H 02/27/17 03:00 MPV 9.1 fL (9.4-12.4) L 02/27/17 03:00 Neutrophils # 26.5 K/mcL (1.6-8.9) H 02/27/17 03:00 Monocytes # 2.5 K/mcL (0.0-1.3) H 02/27/17 03:00 Nucleated RBCs/100 WBC 0.1 /100 WBC (0) H 02/27/17 03:00 Immature Plt Fraction 1.0 % (1.1-6.1) L 02/25/17 07:11 Polychromasia 1+ (Not Present) A 02/27/17 03:00 Hypochromasia Present (Not Present) A 02/27/17 03:00 Basophilic Stippling 1+ (Not Present) A 02/25/17 07:11 Anisocytosis 2+ (Not Present) A 02/26/17 03:10 PT 27.7 Seconds (9.4-12.1) H 02/27/17 03:00 APTT 102.6 Seconds (26.0-36.0) H 02/27/17 03:00 ABG pCO2 51 mmHg (35-45) H 02/26/17 04:10 ABG pO2 67 mmHg (85-104) L 02/26/17 04:10 ABG HCO3 27.5 mEQ/L (21-27) H 02/26/17 04:10 ABG Total CO2 29.1 mEq/L (20-26) H 02/26/17 04:10 ABG O2 Saturation 92 % (95-98) L 02/26/17 04:10 VBG pH 7.08 pH Units (7.32-7.42) L* 02/25/17 05:40 VBG pCO2 92 mmHg (41-51) H 02/25/17 05:40 VBG pO2 67 mmHg (25-40) H 02/25/17 05:40 VBG HCO3 27.3 mEq/L (21-27) H 02/25/17 05:40 Sodium 132 mEq/L (136-145) L 02/27/17 03:00 Chloride 96 mEq/L (98-109) L 02/27/17 03:00 BUN 39 mg/dL (7-20) H D 02/27/17 03:00 Creatinine 4.39 mg/dL (0.57-1.11) H 02/27/17 03:00 Est GFR ( Amer) 12 (> 60) L 02/27/17 03:00 Est GFR (Non-Af Amer) 10 (> 60) L 02/27/17 03:00 Glucose 225 mg/dL (70-99) H 02/27/17 03:00 POC Glucose 222 (58-89) H 02/27/17 05:06 Alkaline Phosphatase 175 Units/L (38-126) H 02/26/17 03:10 B-Natriuretic Peptide 2203 pg/mL (0-100) H 02/25/17 07:11 Serum Total Protein 5.7 g/dL (6.0-8.3) L 02/26/17 03:10 Albumin 2.4 g/dL (3.5-5.0) L 02/26/17 03:10 Albumin/Globulin Ratio 0.7 (1.1-2.2) L 02/26/17 03:10 Ur Specimen Adequacy See below A 02/25/17 06:28 Urine Clarity Turbid (Clear) A 02/25/17 06:28 Urine Protein >=300 mg/dL (Neg-Trace) H 02/25/17 06:28 Urine Ketones Trace mg/dL (Negative) H 02/25/17 06:28 Urine Blood Large (Negative) H 02/25/17 06:28 Ur Leukocyte Esterase Large (Negative) H 02/25/17 06:28 Ur Culture Indicated? YES (NO) A 02/25/17 06:28 Pleural Appearance Hazy (Clear) A 02/26/17 15:30 Pleural RBC 0.020 M/mcL (0.000-0.002) H 02/26/17 15:30 - Microbiology Findings Microbiology Findings: Microbiology, Last 48 Hours 02/25/17 14:20 Sputum Culture - Final Sputum Kluyvera ascorbata 02/26/17 15:30 Body Fluid Culture - Preliminary Pleural Fluid - Clinical Findings Intake & Output: Intake & Output 02/26/17 02/27/17 02/27/17 23:59 07:59 15:59 Intake Total 660 / 660 870 / 870 Output Total 100 / 100 Balance 560 / 560 870 / 870 Weight 82 kg
--- NOTE | 2017-02-27 08:09 | Nephrology Progress Note ---
Date of Encounter: 02/27/17 Time of Encounter: 07:55 - Assessment and Plan (1) End-stage renal disease Current Visit: No Status: Acute Subjective Principal diagnosis: Encephalopathy Interval history: Intubated, sedated, pressors. Objective - Vital Signs Vital signs: Vital Signs Temp Pulse Resp BP Pulse Ox 02/27/17 08:00 98.6 F 02/27/17 06:01 69 16 105/49 96 02/27/17 05:01 99.6 F 71 16 102/52 96 02/27/17 04:32 16 96 02/27/17 04:00 99.6 F 66 16 102/45 96 02/27/17 03:00 69 16 105/47 95 02/27/17 02:00 69 16 107/45 95 02/27/17 01:03 16 96 02/27/17 01:00 69 17 102/47 96 02/27/17 00:00 98.6 F 65 16 101/43 96 02/26/17 23:40 18 95 02/26/17 23:04 65 16 97/48 96 02/26/17 22:00 65 17 96/45 96 02/26/17 21:54 16 93 02/26/17 21:00 99.1 F 65 17 104/53 96 02/26/17 20:00 67 19 104/54 95 02/26/17 19:40 17 96 02/26/17 19:09 71 19 110/52 95 02/26/17 18:37 14 111/57 98 02/26/17 18:00 71 20 110/52 91 02/26/17 17:00 65 14 111/57 98 02/26/17 16:42 22 111/57 99 02/26/17 16:00 66 16 98 02/26/17 15:00 65 14 115/56 98 02/26/17 14:51 22 84 02/26/17 14:00 64 22 104/53 93 02/26/17 13:51 17 103/68 94 02/26/17 13:00 70 17 103/68 94 02/26/17 12:00 70 22 114/49 96 02/26/17 11:56 99.9 F H 02/26/17 11:30 22 101/54 96 02/26/17 11:00 99.9 F H 67 17 102/56 93 02/26/17 10:00 67 15 109/55 96 02/26/17 09:58 19 93/43 96 02/26/17 09:03 19 93/43 97 02/26/17 09:00 63 17 93/40 97 Intake and Output 02/26/17 02/27/17 02/27/17 23:59 07:59 15:59 Intake Total 660 / 660 870 / 870 Output Total 100 / 100 Balance 560 / 560 870 / 870 Intake: IV Fluids 650 / 650 750 / 750 PRECEDEX 400 mcg In 100 100 / 100 200 / 200 ml @ 0.2 MCG/KG/HR 4.389 mls/hr IVC .[id number] [facility] Rx#:[id number] FentaNYL (PF) 1,000 MCG 200 / 200 100 / 100 In 0.9 % Sodium Chloride 80 ML @ 50 MCG/HR 5 mls/ hr IVC [facility] Rx#: [id number] Heparin 25,000 UNIT/500 350 / 350 ML D5W 25,000 unit In 500 ml @ 14 UNIT/KG/HR 23.52 mls/hr IVC .[id number] [facility] Rx#:[id number] Levophed 4 MG In Dextrose 250 / 250 5% 250 ML @ 5 MCG/MIN 18 .75 mls/hr IVC CONT PRN Rx#:[id number] Azactam 500 MG In 100 / 100 100 / 100 Dextrose 5% 100 ML @ 200 mls/hr IVPB Q8H [facility] Rx#: [id number] Tube Feeding 120 / 120 Free Water 10 / 10 Output: Gastric Drainage 100 / 100 Other: Weight 82 kg Blood Glucose* 175 - General Appearance General appearance: Present: well-developed, well-nourished, appears started age EENT: Present: mucous membranes moist Neck: Present: no JVD Respiratory: Present: course breath sounds Cardiology: Present: no edema, irregular rhythm Gastrointestinal: Present: normoactive bowel sounds Integumentary: Present: warm and dry - Lab 02/27/17 03:00 02/27/17 03:00 Most recent lab results ABG pH 7.34 pH Units (7.32-7.45) 02/26/17 04:10 ABG pCO2 51 mmHg (35-45) H 02/26/17 04:10 ABG pO2 67 mmHg (85-104) L 02/26/17 04:10 ABG HCO3 27.5 mEQ/L (21-27) H 02/26/17 04:10 ABG O2 Saturation 92 % (95-98) L 02/26/17 04:10 Calcium 9.1 mg/dL (8.6-10.8) 02/27/17 03:00 Phosphorus 4.4 mg/dL (2.3-4.7) 02/27/17 03:00 Magnesium 1.8 mg/dL (1.6-2.6) 02/27/17 03:00 - Stroke Is the patient on any antithrombotics?: Yes Consult Discharge Plan - Plan Referrals: Henrry Mccullough MD [Primary Care Provider] -
[2017-02-27] MEDS ORDERED: *HR* Heparin 10,000 UNIT/10 ML VIAL IV PRN (08:24)
[2017-02-27] MEDS ORDERED: 0.9 % Sodium Chloride 250 ML IVC PRN (08:24)
[2017-02-27] MEDS: Lactulose Oral Soln 20 GM/30 ML UDC GTUBE SCH ×2 (09:05→18:35)
[2017-02-27] MEDS: Pantoprazole 40 MG VIAL IVPB SCH (09:06)
[2017-02-27] MEDS: Chlorhexidine Rinse 15 ML MOUTHWASH MM SCH ×2 (09:06→20:14)
[2017-02-27] MEDS ORDERED: 0.9 % Sodium Chloride 2,000 ML ONE (09:14)
[2017-02-27] MEDS: Folic Acid 1 MG TABLET PO SCH (09:15)
[2017-02-27] MEDS: Aspirin 81 MG TAB.CHEW PO SCH (09:16)
[2017-02-27] MEDS: Norepinephrine 4 MG in D5% in Water 250 ML IVC PRN ×2 (10:37→19:43)
[2017-02-27] MEDS: Heparin 25,000 UNIT/500 ML D5W 25,000 UNIT/500 ML MLS IVC SCH (13:44)
[2017-02-27] MEDS: metroNIDAZOLE 500 MG TABLET PO SCH ×2 (18:39→23:52)
[2017-02-27 19:09] LABS: Adenovirus F 40/41 PCR Not detected (Not detect); Astrovirus PCR Not detected (Not detect); C.difficile Toxin A/B by PCR Not detected (Not detect); Campylobacter by PCR Not detected (Not detect); Cryptosporidium by PCR Not detected (Not detect); Cyclospora cayetanensis PCR Not detected (Not detect); E. coli O157 by PCR Not detected (Not detect); Entamoeba histolytica PCR Not detected (Not detect); Enteroaggregative E.coli(EAEC) Not detected (Not detect); Enteropathogenic E.coli(EPEC) Not detected (Not detect); Enterotoxigenic E.coli (ETEC) Not detected (Not detect); Giardia lamblia PCR Not detected (Not detect); Norovirus GI/GII PCR Not detected (Not detect); Plesiomonas shigelloides PCR Not detected (Not detect); Rotavirus A PCR Not detected (Not detect); Salmonella PCR Not detected (Not detect); Sapovirus PCR Not detected (Not detect); Shig/EnteroinvasiveE coli EIEC Not detected (Not detect); Shigalike tox-prod E coli STEC Not detected (Not detect); Vibrio PCR Not detected (Not detect); Vibrio cholerae PCR Not detected (Not detect); Yersinia enterocolitica PCR Not detected (Not detect)
[2017-02-28] MEDS: Insulin LISPRO 300 UNITS/3 ML VIAL SQ SCH ×4 (00:07→17:10)
[2017-02-28] MEDS: Norepinephrine 4 MG in D5% in Water 250 ML IVC PRN ×3 (01:09→06:20)
[2017-02-28] MEDS ORDERED: Acetaminophen 325 MG TABLET PO PRN (01:38)
[2017-02-28] MEDS: Aztreonam 500 MG in D5% in Water 100 ML IVPB SCH ×3 (01:54→16:59)
[2017-02-28 03:28] LABS: Nucleated Red Blood Cells 0.8 /100 WBC (0)
[2017-02-28 03:29] LABS: Hematocrit 41.1 % (35.3-44.9); Hemoglobin 11.4 g/dL (11.5-15.4); Mean Corpuscular HGB Conc 27.7 g/dL (31.6-35.5); Mean Corpuscular Hemoglobin 23.5 pg (28.0-33.3); Mean Corpuscular Volume 84.6 fL (83.0-100.0); Platelet Count 367 K/mcL (140-400); Red Blood Count 4.86 M/mcL (3.82-4.97); Red Cell Distribution Width 21.5 % (11.5-14.5)
[2017-02-28 03:31] LABS: Ionized Calcium 1.2 mmol/L (1.15-1.35)
[2017-02-28 03:34] LABS: INR 2.3; Prothrombin Time 25.7 Seconds (9.4-12.1)
[2017-02-28] MEDS: Vasopressin 40 UNIT in D5% in Water 100 ML IV SCH ×2 (03:35→21:59)
[2017-02-28 03:38] LABS: Magnesium 1.6 mg/dL (1.6-2.6); Phosphorous 3.7 mg/dL (2.3-4.7); Potassium 3.1 mEq/L (3.5-4.5)
[2017-02-28] MEDS: Lacri-Lube 3.5 GM TUBE BOTH EYES SCH ×5 (03:39→21:38)
[2017-02-28 04:10] LABS: Lymphocytes # 0.8 K/mcL (0.6-4.6); Monocytes # 3.2 K/mcL (0.0-1.3)
[2017-02-28 04:11] LABS: Hypochromasia Present (Not Present); Microcytosis Present (Not Present); Platelet Estimate Normal (Normal); Polychromasia 1+ (Not Present)
[2017-02-28 04:13] LABS: Acanthocytes 1+ (Not Present)
[2017-02-28 05:51] LABS: Activated Partial Thrombo Time 127.6 Seconds (26.0-36.0)
[2017-02-28 05:56] LABS: Heparin anti-factor XA UFH 0.11 IU/mL (0.30-0.70)
[2017-02-28 06:47] LABS: Activated Partial Thrombo Time 125.5 Seconds (26.0-36.0)
[2017-02-28 06:50] LABS: Heparin anti-factor XA UFH 0.7 IU/mL (0.30-0.70)
[2017-02-28] MEDS: Dexmedetomidine HCl 400 MCG/100 ML MLS IVC SCH ×2 (07:25→08:20)
[2017-02-28] MEDS: Heparin 25,000 UNIT/500 ML D5W 25,000 UNIT/500 ML MLS IVC SCH ×2 (07:25→15:16)
[2017-02-28] MEDS: Pantoprazole 40 MG VIAL IVPB SCH (07:29)
[2017-02-28] MEDS: Chlorhexidine Rinse 15 ML MOUTHWASH MM SCH ×2 (07:30→21:37)
[2017-02-28] MEDS: metroNIDAZOLE 500 MG TABLET PO SCH (07:30)
[2017-02-28] MEDS: Aspirin 81 MG TAB.CHEW PO SCH (07:31)
[2017-02-28] MEDS: Folic Acid 1 MG TABLET PO SCH (07:31)
[2017-02-28] MEDS: Norepinephrine 8 MG in D5% in Water 250 ML IVC PRN ×4 (08:46→23:26)
--- NOTE | 2017-02-28 08:47 | Pulmonology Progress Note ---
<Chester Sosa - Last Filed: 02/28/17 08:48> Date of Encounter: 02/28/17 Time of Encounter: 08:45 Assessment and Plan (1) Acute and chronic respiratory failure Current Visit: No Status: Acute Significant hypercapnia which is likely multifactorial in the setting of opioid use with poor clearance due to cirrhosis of the liver and end-stage renal disease. Hepatic encephalopathy can also be contributing given the patient's elevated ammonia. The patient also appears to have pulmonary edema in the setting of end-stage renal disease. At this time the patient is intubated and minimally sedated but does respond to verbal stimuli. Ventilator support has corrected the patient's respiratory acidosis. We will use minimal sedation to maintain comfort. Patient continues to require pressor support for which the need is increased. Patient is now on maximum norepinephrine and vasopressin. Patient received dialysis yesterday and had 3 L of fluid removed. Plan for dialysis as per patients regular schedule. Recheck ammonia has normalized. Lactulose has been discontinued due to frequent bowel movements and normal ammonia. Urine culture showing gram-positive cocci however given this dialysis patient with minimal urine output patient is likely colonized. Blood culture no growth to date. Sputum culture shows Kluyvera ascobata which is likely a contaminant but given the patient's clinical status and leukocytosis we have initiated aztreonam. Leukocytosis continues to worsen however source of infection is unclear at this time. Spoke with the patient's daughter at bedside, who is the medical power of family law attorney, on day of admission and she stated that her mother has expressed multiple times in the past that she wishes to remain a full code and have everything done in the event of an arrest. According to records on past visits this is consistent with the patient's previous wishes. Given the patient's worsened clinical status will discuss further goals of care with patient's family. Qualifiers: Respiratory failure complication: hypercapnia Qualified Code(s): J96.22 - Acute and chronic respiratory failure with hypercapnia (2) Acute encephalopathy Current Visit: No Status: Acute (3) Cirrhosis Current Visit: No Status: Chronic Qualifiers: Hepatic cirrhosis type: other cirrhosis Qualified Code(s): K74.69 - Other cirrhosis of liver (4) DM (diabetes mellitus), type 2 Current Visit: No Status: Chronic 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 mellitus chcf insulin use: with chcf use Chronic kidney disease stage: on chronic dialysis Qualified Code(s): E11.22 - Type 2 diabetes mellitus with diabetic chronic kidney disease; N18.6 - End stage renal disease; Z79.4 - group home (current) use of insulin; Z99.2 - Dependence on renal dialysis (5) Atrial fibrillation Current Visit: No Status: Chronic Qualifiers: Atrial fibrillation type: chronic Qualified Code(s): I48.2 - Chronic atrial fibrillation (6) Pressure ulcer Current Visit: Yes Status: Acute On the coccyx, midline, present on admission Qualifiers: Pressure ulcer location: other site Pressure ulcer stage: stage 2 Qualified Code(s): L89.892 - Pressure ulcer of other site, stage 2 Subjective Principal diagnosis: Encephalopathy Interval history: Patient seen and examined at bedside. Patient remains intubated and sedated. Patient completed dialysis on yesterday and had 3 L of fluid removed. Patient' s hypotension worsened overnight and required the addition of vasopressin. Patient also developed worsening hypoxia and required increasing FiO2. Objective PUL Vital signs: Last Vital Signs Temp 99.1 F 02/28/17 07:00 Pulse 93 02/28/17 08:00 Resp 16 02/28/17 08:00 BP 100/53 02/28/17 08:00 Pulse Ox 98 02/28/17 08:00 General appearance: comatose ENT: oropharynx moist Auscultation: bilateral: diminished breath sounds Cardiovascular: irregular rhythm Gastrointestinal: normoactive bowel sounds, soft, non-tender, non-distended Extremities: no cyanosis, no clubbing, edema (trace) unable to assess due to mental status Ventilator Settings Ventilator Settings: Ventilator Settings, Last 8 Hours Ventilator Mode A/C Ventilator Mode A/C Ventilator Mode A/C Ventilator Mode A/C Ventilator Mode A/C Ventilator Mode A/C Ventilator Mode A/C Ventilator Tidal Volume 350 Setting Ventilator Tidal Volume 350 Setting Ventilator Tidal Volume 350 Setting Ventilator Tidal Volume 350 Setting Ventilator Tidal Volume 350 Setting Ventilator Tidal Volume 350 Setting Ventilator Tidal Volume 350 Setting Ventilator Respiratory Rate 16 Setting Ventilator Respiratory Rate 16 Setting Ventilator Respiratory Rate 16 Setting Ventilator Respiratory Rate 16 Setting Ventilator Respiratory Rate 16 Setting Ventilator Respiratory Rate 16 Setting Ventilator Respiratory Rate 16 Setting Actual Respiratory Rate 16 Actual Respiratory Rate 17 Actual Respiratory Rate 17 Actual Respiratory Rate 16 Actual Respiratory Rate 16 Actual Respiratory Rate 16 Actual Respiratory Rate 16 Positive End Expiratory 8 Pressure Positive End Expiratory 8 Pressure Positive End Expiratory 8 Pressure Positive End Expiratory 8 Pressure Positive End Expiratory 5 Pressure Positive End Expiratory 5 Pressure Positive End Expiratory 5 Pressure Peak Inspiratory Airway 37 Pressure Peak Inspiratory Airway 37 Pressure Peak Inspiratory Airway 34 Pressure Peak Inspiratory Airway 31 Pressure Peak Inspiratory Airway 33 Pressure Peak Inspiratory Airway 34 Pressure Peak Inspiratory Airway 34 Pressure Results - Laboratory Findings CBC and BMP: 02/28/17 03:17 02/28/17 03:17 ABG ABG pH 7.34 pH Units (7.32-7.45) 02/26/17 04:10 ABG pCO2 51 mmHg (35-45) H 02/26/17 04:10 ABG pO2 67 mmHg (85-104) L 02/26/17 04:10 ABG O2 Saturation 92 % (95-98) L 02/26/17 04:10 PT/INR, D-dimer PT 25.7 Seconds (9.4-12.1) H 02/28/17 03:17 Abnormal lab findings: Abnormal lab results WBC 40.0 K/mcL (4.3-11.1) H* 02/28/17 03:17 Hgb 11.4 g/dL (11.5-15.4) L D 02/28/17 03:17 MCH 23.5 pg (28.0-33.3) L 02/28/17 03:17 MCHC 27.7 g/dL (31.6-35.5) L 02/28/17 03:17 RDW 21.5 % (11.5-14.5) H 02/28/17 03:17 MPV 9.0 fL (9.4-12.4) L 02/28/17 03:17 Band Neutrophils % 12.0 % (0-4) H 02/28/17 03:17 Neutrophils # 36.0 K/mcL (1.6-8.9) H 02/28/17 03:17 Monocytes # 3.2 K/mcL (0.0-1.3) H 02/28/17 03:17 Nucleated RBCs/100 WBC 0.8 /100 WBC (0) H 02/28/17 03:17 Immature Plt Fraction 1.0 % (1.1-6.1) L 02/25/17 07:11 Polychromasia 1+ (Not Present) A 02/28/17 03:17 Hypochromasia Present (Not Present) A 02/28/17 03:17 Basophilic Stippling 1+ (Not Present) A 02/25/17 07:11 Anisocytosis 2+ (Not Present) A 02/26/17 03:10 Microcytosis Present (Not Present) A 02/28/17 03:17 Acanthocytes (Spur) 1+ (Not Present) A 02/28/17 03:17 PT 25.7 Seconds (9.4-12.1) H 02/28/17 03:17 APTT 125.5 Seconds (26.0-36.0) H* 02/28/17 05:59 ABG pCO2 51 mmHg (35-45) H 02/26/17 04:10 ABG pO2 67 mmHg (85-104) L 02/26/17 04:10 ABG HCO3 27.5 mEQ/L (21-27) H 02/26/17 04:10 ABG Total CO2 29.1 mEq/L (20-26) H 02/26/17 04:10 ABG O2 Saturation 92 % (95-98) L 02/26/17 04:10 VBG pH 7.08 pH Units (7.32-7.42) L* 02/25/17 05:40 VBG pCO2 92 mmHg (41-51) H 02/25/17 05:40 VBG pO2 67 mmHg (25-40) H 02/25/17 05:40 VBG HCO3 27.3 mEq/L (21-27) H 02/25/17 05:40 Sodium 131 mEq/L (136-145) L 02/28/17 03:17 Potassium 3.1 mEq/L (3.5-4.5) L 02/28/17 03:17 Chloride 95 mEq/L (98-109) L 02/28/17 03:17 BUN 29 mg/dL (7-20) H D 02/28/17 03:17 Creatinine 3.53 mg/dL (0.57-1.11) H 02/28/17 03:17 Est GFR ( Amer) 15 (> 60) L 02/28/17 03:17 Est GFR (Non-Af Amer) 13 (> 60) L 02/28/17 03:17 Glucose 141 mg/dL (70-99) H 02/28/17 03:17 POC Glucose 115 (58-89) H 02/27/17 23:56 Alkaline Phosphatase 175 Units/L (38-126) H 02/26/17 03:10 B-Natriuretic Peptide 2203 pg/mL (0-100) H 02/25/17 07:11 Serum Total Protein 5.7 g/dL (6.0-8.3) L 02/26/17 03:10 Albumin 2.4 g/dL (3.5-5.0) L 02/26/17 03:10 Albumin/Globulin Ratio 0.7 (1.1-2.2) L 02/26/17 03:10 Ur Specimen Adequacy See below A 02/25/17 06:28 Urine Clarity Turbid (Clear) A 02/25/17 06:28 Urine Protein >=300 mg/dL (Neg-Trace) H 02/25/17 06:28 Urine Ketones Trace mg/dL (Negative) H 02/25/17 06:28 Urine Blood Large (Negative) H 02/25/17 06:28 Ur Leukocyte Esterase Large (Negative) H 02/25/17 06:28 Ur Culture Indicated? YES (NO) A 02/25/17 06:28 Pleural Appearance Hazy (Clear) A 02/26/17 15:30 Pleural RBC 0.020 M/mcL (0.000-0.002) H 02/26/17 15:30 - Microbiology Findings Microbiology Findings: Microbiology, Last 48 Hours 02/26/17 12:41 Blood Culture - Preliminary Port System No growth. 02/26/17 12:41 Blood Culture - Preliminary Port System No growth. 02/26/17 10:27 Blood Culture - Preliminary Peripheral Venipuncture No growth. 02/26/17 10:20 Blood Culture - Preliminary Peripheral Venipuncture No growth. 02/26/17 15:30 Body Fluid Culture - Preliminary Pleural Fluid 02/25/17 14:20 Sputum Culture - Final Sputum Kluyvera ascorbata - Clinical Findings Intake & Output: Intake & Output 02/27/17 02/28/17 02/28/17 23:59 07:59 15:59 Intake Total 732 / 732 1391 / 1391 100 / 100 Output Total 0 / 0 Balance 732 / 732 1391 / 1391 100 / 100 - Stroke Is the patient on any antithrombotics?: Yes Consult Discharge Plan - Plan Referrals: Henrry Mccullough MD [Primary Care Provider] - <Tyler Guthrie M - Last Filed: 02/28/17 10:35> Date of Encounter: 02/28/17 Objective PUL Vital signs: Last Vital Signs Temp 99.1 F 02/28/17 07:00 Pulse 89 02/28/17 10:00 Resp 16 02/28/17 10:00 BP 106/52 02/28/17 10:00 Pulse Ox 100 02/28/17 10:00 Ventilator Settings Ventilator Settings: Ventilator Settings, Last 8 Hours Ventilator Mode A/C Ventilator Mode A/C Ventilator Mode A/C Ventilator Mode A/C Ventilator Mode A/C Ventilator Mode A/C Ventilator Mode A/C Ventilator Mode A/C Ventilator Tidal Volume 350 Setting Ventilator Tidal Volume 350 Setting Ventilator Tidal Volume 350 Setting Ventilator Tidal Volume 350 Setting Ventilator Tidal Volume 350 Setting Ventilator Tidal Volume 350 Setting Ventilator Tidal Volume 350 Setting Ventilator Tidal Volume 350 Setting Ventilator Respiratory Rate 16 Setting Ventilator Respiratory Rate 16 Setting Ventilator Respiratory Rate 16 Setting Ventilator Respiratory Rate 16 Setting Ventilator Respiratory Rate 16 Setting Ventilator Respiratory Rate 16 Setting Ventilator Respiratory Rate 16 Setting Ventilator Respiratory Rate 16 Setting Actual Respiratory Rate 16 Actual Respiratory Rate 16 Actual Respiratory Rate 16 Actual Respiratory Rate 16 Actual Respiratory Rate 17 Actual Respiratory Rate 17 Actual Respiratory Rate 16 Actual Respiratory Rate 16 Positive End Expiratory 8 Pressure Positive End Expiratory 8 Pressure Positive End Expiratory 8 Pressure Positive End Expiratory 8 Pressure Positive End Expiratory 8 Pressure Positive End Expiratory 8 Pressure Positive End Expiratory 8 Pressure Positive End Expiratory 5 Pressure Peak Inspiratory Airway 29 Pressure Peak Inspiratory Airway 34 Pressure Peak Inspiratory Airway 37 Pressure Peak Inspiratory Airway 37 Pressure Peak Inspiratory Airway 37 Pressure Peak Inspiratory Airway 34 Pressure Peak Inspiratory Airway 31 Pressure Peak Inspiratory Airway 33 Pressure Results - Laboratory Findings CBC and BMP: 02/28/17 03:17 02/28/17 03:17 ABG ABG pH 7.34 pH Units (7.32-7.45) 02/26/17 04:10 ABG pCO2 51 mmHg (35-45) H 02/26/17 04:10 ABG pO2 67 mmHg (85-104) L 02/26/17 04:10 ABG O2 Saturation 92 % (95-98) L 02/26/17 04:10 PT/INR, D-dimer PT 25.7 Seconds (9.4-12.1) H 02/28/17 03:17 Abnormal lab findings: Abnormal lab results WBC 40.0 K/mcL (4.3-11.1) H* 02/28/17 03:17 Hgb 11.4 g/dL (11.5-15.4) L D 02/28/17 03:17 MCH 23.5 pg (28.0-33.3) L 02/28/17 03:17 MCHC 27.7 g/dL (31.6-35.5) L 02/28/17 03:17 RDW 21.5 % (11.5-14.5) H 02/28/17 03:17 MPV 9.0 fL (9.4-12.4) L 02/28/17 03:17 Band Neutrophils % 12.0 % (0-4) H 02/28/17 03:17 Neutrophils # 36.0 K/mcL (1.6-8.9) H 02/28/17 03:17 Monocytes # 3.2 K/mcL (0.0-1.3) H 02/28/17 03:17 Nucleated RBCs/100 WBC 0.8 /100 WBC (0) H 02/28/17 03:17 Immature Plt Fraction 1.0 % (1.1-6.1) L 02/25/17 07:11 Polychromasia 1+ (Not Present) A 02/28/17 03:17 Hypochromasia Present (Not Present) A 02/28/17 03:17 Basophilic Stippling 1+ (Not Present) A 02/25/17 07:11 Anisocytosis 2+ (Not Present) A 02/26/17 03:10 Microcytosis Present (Not Present) A 02/28/17 03:17 Acanthocytes (Spur) 1+ (Not Present) A 02/28/17 03:17 PT 25.7 Seconds (9.4-12.1) H 02/28/17 03:17 APTT 125.5 Seconds (26.0-36.0) H* 02/28/17 05:59 ABG pCO2 51 mmHg (35-45) H 02/26/17 04:10 ABG pO2 67 mmHg (85-104) L 02/26/17 04:10 ABG HCO3 27.5 mEQ/L (21-27) H 02/26/17 04:10 ABG Total CO2 29.1 mEq/L (20-26) H 02/26/17 04:10 ABG O2 Saturation 92 % (95-98) L 02/26/17 04:10 VBG pH 7.08 pH Units (7.32-7.42) L* 02/25/17 05:40 VBG pCO2 92 mmHg (41-51) H 02/25/17 05:40 VBG pO2 67 mmHg (25-40) H 02/25/17 05:40 VBG HCO3 27.3 mEq/L (21-27) H 02/25/17 05:40 Sodium 131 mEq/L (136-145) L 02/28/17 03:17 Potassium 3.1 mEq/L (3.5-4.5) L 02/28/17 03:17 Chloride 95 mEq/L (98-109) L 02/28/17 03:17 BUN 29 mg/dL (7-20) H D 02/28/17 03:17 Creatinine 3.53 mg/dL (0.57-1.11) H 02/28/17 03:17 Est GFR ( Amer) 15 (> 60) L 02/28/17 03:17 Est GFR (Non-Af Amer) 13 (> 60) L 02/28/17 03:17 Glucose 141 mg/dL (70-99) H 02/28/17 03:17 POC Glucose 115 (58-89) H 02/27/17 23:56 Alkaline Phosphatase 175 Units/L (38-126) H 02/26/17 03:10 B-Natriuretic Peptide 2203 pg/mL (0-100) H 02/25/17 07:11 Serum Total Protein 5.7 g/dL (6.0-8.3) L 02/26/17 03:10 Albumin 2.4 g/dL (3.5-5.0) L 02/26/17 03:10 Albumin/Globulin Ratio 0.7 (1.1-2.2) L 02/26/17 03:10 Ur Specimen Adequacy See below A 02/25/17 06:28 Urine Clarity Turbid (Clear) A 02/25/17 06:28 Urine Protein >=300 mg/dL (Neg-Trace) H 02/25/17 06:28 Urine Ketones Trace mg/dL (Negative) H 02/25/17 06:28 Urine Blood Large (Negative) H 02/25/17 06:28 Ur Leukocyte Esterase Large (Negative) H 02/25/17 06:28 Ur Culture Indicated? YES (NO) A 02/25/17 06:28 Pleural Appearance Hazy (Clear) A 02/26/17 15:30 Pleural RBC 0.020 M/mcL (0.000-0.002) H 02/26/17 15:30 - Microbiology Findings Microbiology Findings: Microbiology, Last 48 Hours 02/26/17 12:41 Blood Culture - Preliminary Port System No growth. 02/26/17 12:41 Blood Culture - Preliminary Port System No growth. 02/26/17 10:27 Blood Culture - Preliminary Peripheral Venipuncture No growth. 02/26/17 10:20 Blood Culture - Preliminary Peripheral Venipuncture No growth. 02/26/17 15:30 Body Fluid Culture - Preliminary Pleural Fluid 02/25/17 14:20 Sputum Culture - Final Sputum Kluyvera ascorbata - Clinical Findings Intake & Output: Intake & Output 02/27/17 02/28/17 02/28/17 23:59 07:59 15:59 Intake Total 732 / 732 1391 / 1391 352 / 352 Output Total 0 / 0 Balance 732 / 732 1391 / 1391 352 / 352
--- NOTE | 2017-02-28 08:57 | Nephrology Progress Note ---
Date of Encounter: 02/28/17 Time of Encounter: 08:15 - Assessment and Plan (1) End-stage renal disease Current Visit: No Status: Acute Acute on chronic respiratory failure, encephalopathy, cirrhosis. HD tomorrow, keeping MWF schedule. Subjective Principal diagnosis: Encephalopathy Interval history: Intubated, sedated, pressors. FIO2 100, peep 8. Objective - Vital Signs Vital signs: Vital Signs Temp Pulse Resp BP Pulse Ox 02/28/17 08:00 93 16 100/53 98 02/28/17 07:45 16 93/57 94 02/28/17 07:00 99.1 F 93 17 96/49 94 02/28/17 06:00 93 16 78/63 92 02/28/17 05:48 17 81/46 90 02/28/17 05:00 90 17 102/47 94 02/28/17 04:00 95 17 97/48 95 02/28/17 03:43 16 97/48 94 02/28/17 03:00 87 16 95/40 94 02/28/17 02:00 92 16 93/46 88 02/28/17 01:27 16 93 02/28/17 01:00 99 F 93 16 95/48 93 02/28/17 00:00 85 16 98/40 94 02/27/17 23:17 16 76/43 90 02/27/17 23:00 100.6 F H 81 16 88/40 92 02/27/17 22:00 82 16 87/42 96 02/27/17 21:27 17 110/44 90 02/27/17 21:00 80 17 110/44 90 02/27/17 20:15 17 98/48 90 02/27/17 20:10 101.3 F H 02/27/17 20:00 80 17 98/48 90 02/27/17 19:00 76 17 99/39 90 02/27/17 18:00 70 16 103/38 92 02/27/17 17:00 70 16 103/38 92 02/27/17 16:00 98.3 F 70 16 88/65 100 02/27/17 15:30 19 109/48 94 02/27/17 15:00 78 18 109/48 94 02/27/17 14:00 95 20 92/77 92 02/27/17 13:45 99.7 F H 21 86/43 02/27/17 13:40 17 76/39 91 02/27/17 13:25 126/100 02/27/17 13:15 115/70 02/27/17 13:00 95 20 92/77 92 02/27/17 12:45 97/46 02/27/17 12:30 92/51 02/27/17 12:15 108/88 02/27/17 12:02 99.7 F H 02/27/17 12:00 103/54 02/27/17 11:45 90/46 02/27/17 11:42 17 90/46 92 02/27/17 11:30 88/52 02/27/17 11:15 97/50 02/27/17 11:00 63 18 83/43 95 02/27/17 10:45 99.7 F H 18 94/48 02/27/17 10:00 64 16 96/46 97 02/27/17 09:57 16 93/50 97 02/27/17 09:00 64 16 100/52 97 Intake and Output 02/27/17 02/28/17 02/28/17 23:59 07:59 15:59 Intake Total 732 / 732 1391 / 1391 100 / 100 Output Total 0 / 0 Balance 732 / 732 1391 / 1391 100 / 100 Intake: IV Fluids 652 / 652 1371 / 1371 100 / 100 0.9 % Sodium Chloride 250 250 / 250 ML @ 937.5 mls/hr IVC . Q16M PRN Rx#:[id number] PRECEDEX 400 mcg In 100 80 / 80 0 / 0 100 / 100 ml @ 0.2 MCG/KG/HR 4.389 mls/hr IVC .[id number] CANDE Rx#:[id number] FentaNYL (PF) 1,000 MCG 103 / 103 0 / 0 In 0.9 % Sodium Chloride 80 ML @ 50 MCG/HR 5 mls/ hr IVC CONT CANDE Rx#: [id number] Heparin 25,000 UNIT/500 340 / 340 ML D5W 25,000 unit In 500 ml @ 14 UNIT/KG/HR 23.52 mls/hr IVC .[id number] CANDE Rx#:[id number] Levophed 4 MG In Dextrose 349 / 349 681 / 681 5% 250 ML @ 5 MCG/MIN 18 .75 mls/hr IVC CONT PRN Rx#:[id number] Azactam 500 MG In 120 / 120 100 / 100 Dextrose 5% 100 ML @ 200 mls/hr IVPB Q8H CANDE Rx#: [id number] Oral 0 / 0 Tube Feeding 80 / 80 20 / 20 Output: Rectal Tube 0 / 0 Other: Blood Glucose* 187 115 - General Appearance General appearance: Present: well-developed, well-nourished, appears started age EENT: Present: mucous membranes moist Neck: Present: no JVD Respiratory: Present: course breath sounds Cardiology: Present: no edema, irregular rhythm Dialysis Vascular Access: Arteriovenous Fistula thrill: Yes bruit: Yes Gastrointestinal: Present: hypoactive bowel sounds, distended Integumentary: Present: warm and dry Additional Comments: mottling on feet - Lab 02/28/17 03:17 02/28/17 03:17 Most recent lab results ABG pH 7.34 pH Units (7.32-7.45) 02/26/17 04:10 ABG pCO2 51 mmHg (35-45) H 02/26/17 04:10 ABG pO2 67 mmHg (85-104) L 02/26/17 04:10 ABG HCO3 27.5 mEQ/L (21-27) H 02/26/17 04:10 ABG O2 Saturation 92 % (95-98) L 02/26/17 04:10 Calcium 9.0 mg/dL (8.6-10.8) 02/28/17 03:17 Phosphorus 3.7 mg/dL (2.3-4.7) 02/28/17 03:17 Magnesium 1.6 mg/dL (1.6-2.6) 02/28/17 03:17 - Stroke Is the patient on any antithrombotics?: Yes Consult Discharge Plan - Plan Referrals: Henrry Mccullough MD [Primary Care Provider] -
[2017-02-28] MEDS: FentaNYL (PF) 1,000 MCG in 0.9 % Sodium Chloride 80 ML IVC SCH ×2 (09:29→23:27)
[2017-02-28 14:17] LABS: Activated Partial Thrombo Time 116.7 Seconds (26.0-36.0)
[2017-02-28 14:40] LABS: Heparin anti-factor XA UFH 0.06 IU/mL (0.30-0.70)
--- NOTE | 2017-02-28 15:12 | Palliative - Consult Note ---
Date of Encounter: 02/28/17 Time of Encounter: 15:00 - Assessment and Plan (1) Goals of care, counseling/discussion Current Visit: Yes Status: Acute Assessment and plan: Conducted bedside meeting with Radha, daughter/POA. Chart review revealed previously signed DNR from Jul 2016. Radha reports that since that time the patient had changed her desires to FULL CODE and short term intubation. I fully explained each Code Status and defined meanings of each. - DNRCC-A -DNRCC-A, DNI - FULL CODE - DNRCC - COMFORT CARE I explained patients POC and poor prognosis given that patient has poor liver and renal function. I explained that she is requiring vasopressor support to maintain blood pressure and despite this her extremities are cool and mottled. I explained ventilation settings and need for O2. Radha verbalized that she would like to give the patient some additional time for treatment and will discuss with her brother Presley and sister Dorothy GOC. The patient WBC 40.0 and keeps trending up. Nephrology and Pulmonology are following patient as well. Plan if for Radha to discuss GOC with siblings and do a watch and see approach. The patient did not desire long-term intubation. The PC team will follow daily. Patient remains FULL CODE for now. (2) Dyspnea Current Visit: No Status: Acute Assessment and plan: Mechanical ventilation, antibiotics, position for comfort and sedation. Qualifiers: Dyspnea type: shortness of breath Qualified Code(s): R06.02 - Shortness of breath (3) Cirrhosis Current Visit: No Status: Chronic Assessment and plan: Avoid nephrotoxic medications Qualifiers: Hepatic cirrhosis type: other cirrhosis Qualified Code(s): K74.69 - Other cirrhosis of liver (4) Acute and chronic respiratory failure Current Visit: No Status: Acute Assessment and plan: Per Pulmonology Qualifiers: Respiratory failure complication: hypercapnia Qualified Code(s): J96.22 - Acute and chronic respiratory failure with hypercapnia (5) End stage renal disease Current Visit: No Status: Acute Assessment and plan: Dialysis per Nephrology Palliative-CN HPI - Data of Consult Patient: known to practice within the last 3 years Consult date: 02/28/17 Requesting Physician: Chester Sosa Primary Care Provider: Henrry Mccullough MD - Consult Narrative Palliative Care/Comfort Measures: Palliative care Reason for consult: Goals of Care History of present illness: Ms. Rodriguez is a 71 year old female admitted from [facility]. The patient is in the ICU intubated and mechanically ventilated. The patient arrived to ER in respiratory faulire and in a stupor, unable to maintain her own breathing. History includes ESRD which requires Dialysis, chronic hip pain (nonsurgical) for which she has been taking narcotics. It is noted that the patient also has cirrhosis. Upon this consult, her daughter/POA Radha is at bedside. A full chart review and update about her case from Dr. Sosa has been conducted. The patient is receiving 100% FiO2 A/C vent support, 2 vasopressors for blood pressure support (Levophed & Vasopressin). The patient is sedated with Fentanyl for comfort. This palliative care consult if for GOC discussion. CC: Tyler Guthrie, Past Med Surg Social Fam HX - Past Medical History Source: old records reviewed, obtained from family Medical history: arthritis, atrial fibrillation, cirrhosis, CHF, COPD, diabetes , GERD, hyperlipidemia, hypertension, renal disease, other Psychiatric history: anxiety, panic disorder - Past Surgical History Surgical History: cholecystectomy, hysterectomy - Social History Smoking Status: Never smoker Smokeless Tobacco Status: No Alcohol use: none Drug use: none Occupational status: unemployed Current living situation: [facility] ([facility]) Activity Level: Bed bound Recent Out of Country Travel Within the Last 8 Weeks: No Exposure or Possible Exposure to Illness During Travel: No - Family History Mother History Unknown: Yes Living Status: Hx Family Cardiac Disorders: Yes Hx Family GI Disorders: Yes Hx Family Endocrine Disorder: Yes Father Living Status: Hx Family Cardiac Disorders: Yes Hx Family Cancer: Yes Sister Living Status: Still Living Hx Family Cancer: Yes (Breast Cancer, age 40's) Hx Family Endocrine Disorder: Yes (diabetes mellitus) Brother Living Status: Still Living Hx Family Cardiac Disorders: No Hx Family Respiratory Disorders: No Hx Family Cancer: No Hx Family GI Disorders: No Hx Family Endocrine Disorder: Yes Hx Family Neuromuscular Disorders: No Hx Family Neurologic Disorders: No Hx Family HEENT Disorders: No Hx Family Autoimmune Disorders: No Medications and Allergies Metoprolol [Lopressor] 12.5 mg PO HS 08/14/15 [History] Sertraline [Zoloft] 150 mg PO DAILY 08/14/15 [History] Sucralfate [Carafate] 2 gm PO BID 08/14/15 [History] Lactulose 10 gm PO QID 06/24/16 [History] Aspirin 81 mg PO DAILY 07/11/16 [History] Fluticasone/Vilanterol [Breo Ellipta 100-25 Mcg INH] 1 puff IH DAILY 07/11/16 [ History] Pantoprazole Sodium [Protonix] 40 mg PO DAILY 07/11/16 [History] Diltiazem [Cardizem] 30 mg PO TID 09/20/16 [History] Gabapentin [Neurontin] 100 mg PO BID 09/20/16 [History] Sennosides [Senna] 17.2 mg PO DAILY 09/20/16 [History] Simethicone [Gas-X] 120 mg PO BID PRN 09/20/16 [History] Folic Acid 1 mg PO DAILY #30 tablet 12/03/16 [Rx] Ferrous Gluconate 324 mg PO TID 01/12/17 [History] Warfarin [Coumadin] 2 mg PO HS 01/12/17 [History] Amino Acids/Protein Hydrolys [Pro-Stat Awc Liquid] 30 ml PO BID 01/28/17 [ History] Ipratropium/Albuterol Neb [Duoneb] 3 ml IH Q6HR PRN 01/28/17 [History] Mupirocin [Bactroban Oint] 1 appl TP MOWEFR 01/28/17 [History] Insulin ASPART [Novolog Flexpen] 0 - 10 units SQ TID #1 MDD PER SLIDING SCALE 02/06/17 [Rx] Lidocaine Patch [Lidoderm 5% patch] 1 each TP DAILY #6 adh..patch 02/06/17 [Rx] OxyCODONE Immed Rel [Roxicodone 5 MG] 5 mg PO Q6HR PRN #16 tablet 02/06/17 [Rx] Gentamicin OPTH Soln 1 drop OP TID 02/25/17 [History] Metoprolol [Lopressor] 12.5 mg PO SUTUTHSA@0800 02/25/17 [History] Torsemide 50 mg PO DAILY 02/25/17 [History] Allergies ceftriaxone [From Rocephin] Allergy (Severe, Verified 02/25/17 05:02) Anaphylaxis Occured at [facility]. Required ICU transfer, intubation, and mechanical ventilation. ciprofloxacin [From Cipro] Allergy (Mild, Verified 02/25/17 05:02) Rash sulfamethoxazole [From Bactrim] Allergy (Verified 02/25/17 05:02) See Comments trimethoprim [From Bactrim] Allergy (Verified 02/25/17 05:02) See Comments piperacillin [From Zosyn] Adverse Reaction (Verified 02/25/17 18:25) See Comments unknown, per list from [facility] tazobactam [From Zosyn] Adverse Reaction (Verified 02/25/17 18:25) See Comments unknown, per list from [facility] rozeta Allergy (Uncoded 02/25/17 05:02) See Comments ROS unobtainable: due to endotracheal tube (patient is intubated) All systems: reviewed and no additional remarkable complaints except as stated - Constitutional Constitutional ROS PAL: lethargy - EENT Eyes: requires corrective lenses - Musculoskeletal Musculoskeletal ROS IM: arthralgias, muscle weakness - Neurological Neurological ROS: weakness Palliative Care-Exam - Constitutional Vitals: Temp Pulse Resp BP Pulse Ox 97.9 F 92 17 93/47 100 02/28/17 11:51 02/28/17 14:00 02/28/17 14:00 02/28/17 14:00 02/28/17 14:00 General appearance: Present: no acute distress (intubated and ventilated) - Head Head Exam: Present: atraumatic, normal inspection, normocephalic - Eye Eye exam: Present: PERRL - ENT ENT exam: Present: mucous membranes moist - Expanded ENT Exam Teeth exam: Present: edentulous - Neck Neck exam: Present: normal inspection - Respiratory Respiratory exam: Present: decreased breath sounds Additional comments: Day #2 of mechanical ventilation - Expanded Respiratory Exam Location: decreased breath sounds: Left, Right, Lower - Cardiovascular Cardiovascular exam: Present: RRR, +S1, +S2 - Expanded Cardiovascular Exam Peripheral pulses: 1+: Radial (L), Radial (R), Femoral (L) PM, Femoral (R) PM, Posterior Tibialis (L), Posterior Tibialis (R), Dorsalis Pedis (L) PM, Dorsalis Pedis (R) PM (Cool extremities), 2+: Carotid (L) PM, Carotid (R) PM - GI/Abdominal Exam GI/Abdominal exam: Present: diminished bowel sounds (rectal tube in place and empty), soft - Rectal Rectal exam: Present: deferred - Catheter Type: Urethral (Sandhu) - Expanded Upper Extremities Exam Vascular: Present: vascular compromise (bilateral hand and legs cold, mottled to thigh) - Neurological Exam Neurological exam: Present: altered (intubated) - Psychiatric Psychiatric exam: Present: flat affect - Skin Skin exam: Present: mottled (mottled legs), pallor Internal Medicine - CN: Reslt - Labs CBC & Chem 7: 02/28/17 03:17 02/28/17 03:17 Labs: Short CBC 02/28/17 Range/Units 03:17 WBC 40.0 H* (4.3-11.1) K/mcL Hgb 11.4 L D (11.5-15.4) g/dL Hct 41.1 (35.3-44.9) % Plt Count 367 (140-400) K/mcL Neutrophils # 36.0 H (1.6-8.9) K/mcL BMP 02/28/17 03:17 Sodium 131 L Potassium 3.1 L Chloride 95 L Carbon Dioxide 28 BUN 29 H D Creatinine 3.53 H Glucose 141 H Calcium 9.0 - ABG Interpretation ABG results: ABG ABG pH 7.34 pH Units (7.32-7.45) 02/26/17 04:10 ABG pCO2 51 mmHg (35-45) H 02/26/17 04:10 ABG pO2 67 mmHg (85-104) L 02/26/17 04:10 ABG O2 Saturation 92 % (95-98) L 02/26/17 04:10 PT/INR, D-dimer PT 25.7 Seconds (9.4-12.1) H 02/28/17 03:17 - Impressions Impressions Chest X-Ray 02/27/17 18:25 IMPRESSION: Stable chest demonstrating pulmonary edema and bilateral pleural effusions. D/ / 02/27/2017 20:09:59 Chester Benitez MD / stefano Interpreting Provider: Chester Benitez MD Consult Discharge Plan - Plan Referrals: Henrry Mccullough MD [Primary Care Provider] - Palliative Quality Palliative Quality: Screen for Code Status: Yes, Screen for Goals of Care: Yes, Screen for Pain: Yes, If Pain Regimen Started, Initiate Bowel Regimen: Yes, Screen for Nausea/Vomitting: Yes
[2017-02-28] MEDS: MetroNIDAZOLE 500 MG/100 ML 500 MG/100 ML BAG IVPB SCH ×2 (15:28→23:08)
[2017-02-28] MEDS ORDERED: 0.9 % Sodium Chloride 250 ML ONE (21:35)
[2017-02-28] MEDS: EPINEPHrine 1 MG in D5% in Water 250 ML IVC SCH (22:00)
[2017-03-01] MEDS: Dexmedetomidine HCl 400 MCG/100 ML MLS IVC SCH
[2017-03-01] MEDS ORDERED: Acetaminophen IV 1,000 MG/100 ML INFUS..BTL IVPB ONE (00:01)
[2017-03-01] MEDS: Lacri-Lube 3.5 GM TUBE BOTH EYES SCH ×6 (00:01→21:30)
[2017-03-01] MEDS: Insulin LISPRO 300 UNITS/3 ML VIAL SQ SCH ×5 (00:01→21:31)
[2017-03-01] MEDS ORDERED: *HR* EPINEPHrine 1 MG/ML AMPUL ONE (02:00)
[2017-03-01] MEDS ORDERED: D5% in Water 250 ML ONE (02:01)
[2017-03-01] MEDS: Aztreonam 500 MG in D5% in Water 100 ML IVPB SCH ×3 (02:04→17:04)
[2017-03-01] MEDS: EPINEPHrine 1 MG in D5% in Water 250 ML IVC SCH ×3 (02:05→22:19)
[2017-03-01 04:30] LABS: Basophils % 0.3 %
[2017-03-01 04:31] LABS: Basophils # 0.2 K/mcL (0.0-0.2); Hematocrit 35.3 % (35.3-44.9); Hemoglobin 9.8 g/dL (11.5-15.4); Immature Granulocytes % 1.4 % (0-4); Lymphocytes # 0.4 K/mcL (0.6-4.6); Lymphocytes % 0.8 %; Mean Corpuscular HGB Conc 27.8 g/dL (31.6-35.5); Mean Corpuscular Volume 82.9 fL (83.0-100.0); Mean Platelet Volume 9.2 fL (9.4-12.4); Monocytes % 5.9 %; Nucleated Red Blood Cells 0.6 /100 WBC (0); Platelet Count 309 K/mcL (140-400); Red Blood Count 4.26 M/mcL (3.82-4.97); Red Cell Distribution Width 21.2 % (11.5-14.5); Segmented Neutrophils % 91.6 %
[2017-03-01 04:41] LABS: Neutrophils # 46.1 K/mcL (1.6-8.9)
[2017-03-01 04:42] LABS: Calcium 8.7 mg/dL (8.6-10.8); Magnesium 1.5 mg/dL (1.6-2.6); Potassium 3.9 mEq/L (3.5-4.5)
[2017-03-01 04:52] LABS: INR 3.5
[2017-03-01 04:54] LABS: Phosphorous 5.6 mg/dL (2.3-4.7)
[2017-03-01] MEDS: Heparin 25,000 UNIT/500 ML D5W 25,000 UNIT/500 ML MLS IVC SCH (04:58)
[2017-03-01 05:00] LABS: Ionized Calcium 1.12 mmol/L (1.15-1.35)
[2017-03-01] MEDS: Norepinephrine 8 MG in D5% in Water 250 ML IVC PRN ×3 (05:00→15:46)
[2017-03-01 05:30] LABS: Activated Partial Thrombo Time 110.3 Seconds (26.0-36.0)
[2017-03-01 05:32] LABS: Platelet Estimate Normal (Normal); Polychromasia 1+ (Not Present)
[2017-03-01 05:40] LABS: Heparin anti-factor XA UFH 0.01 IU/mL (0.30-0.70)
[2017-03-01] MEDS: MetroNIDAZOLE 500 MG/100 ML 500 MG/100 ML BAG IVPB SCH ×2 (07:47→15:26)
[2017-03-01] MEDS: Pantoprazole 40 MG VIAL IVPB SCH (07:47)
[2017-03-01] MEDS: Aspirin 81 MG TAB.CHEW PO SCH (07:48)
[2017-03-01] MEDS: Chlorhexidine Rinse 15 ML MOUTHWASH MM SCH ×2 (07:48→21:30)
[2017-03-01] MEDS: Folic Acid 1 MG TABLET PO SCH (07:49)
--- NOTE | 2017-03-01 08:44 | Pulmonology Progress Note ---
<NuviaChester conner Majo - Last Filed: 03/01/17 08:42> Date of Encounter: 03/01/17 Time of Encounter: 08:42 Assessment and Plan (1) Acute and chronic respiratory failure Current Visit: No Status: Acute Significant hypercapnia which is likely multifactorial in the setting of opioid use with poor clearance due to cirrhosis of the liver and end-stage renal disease. Hepatic encephalopathy can also be contributing given the patient's elevated ammonia. The patient also appears to have pulmonary edema in the setting of end-stage renal disease. At this time the patient is intubated and minimally sedated and is completely unresponsive. We will completely discontinue sedation to evaluate mental status. Patient continues to require pressor support for which the need continues to increase. Patient is now on maximum norepinephrine and vasopressin and epinephrine was admitted overnight. Patient has evidence of liver failure decompensation with a rising INR. We will discontinue heparin. Urine culture showing gram-positive cocci however given this dialysis patient with minimal urine output patient is likely colonized. Sputum culture shows Kluyvera ascobata which is likely a contaminant but given the patient's clinical status and leukocytosis we have initiated aztreonam. Leukocytosis has again worsened this morning and is up to 50. Source remains unclear. Zyvox has been added. 2 sets of blood cultures are negative. I again spoke with the daughter yesterday and updated her on the patient's deteriorating clinical condition. I explained that her prognosis is extremely poor and the patient's clinical status continues to decline despite maximum medical therapy. I asked the palliative care team to come talk with the patient and they spoke with her at length and the daughter continue to wish for aggressive medical treatment and full CODE STATUS. We will again update the daughter today and reassess goals of care. Qualifiers: Respiratory failure complication: hypercapnia Qualified Code(s): J96.22 - Acute and chronic respiratory failure with hypercapnia (2) Acute encephalopathy Current Visit: No Status: Acute (3) Cirrhosis Current Visit: No Status: Chronic Qualifiers: Hepatic cirrhosis type: other cirrhosis Qualified Code(s): K74.69 - Other cirrhosis of liver (4) DM (diabetes mellitus), type 2 Current Visit: No Status: Chronic 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 mellitus fdc insulin use: with long term care social worker use Chronic kidney disease stage: on chronic dialysis Qualified Code(s): E11.22 - Type 2 diabetes mellitus with diabetic chronic kidney disease; N18.6 - End stage renal disease; Z79.4 - correction (current) use of insulin; Z99.2 - Dependence on renal dialysis (5) Atrial fibrillation Current Visit: No Status: Chronic Qualifiers: Atrial fibrillation type: chronic Qualified Code(s): I48.2 - Chronic atrial fibrillation (6) Pressure ulcer Current Visit: Yes Status: Acute On the coccyx, midline, present on admission Qualifiers: Pressure ulcer location: other site Pressure ulcer stage: stage 2 Qualified Code(s): L89.892 - Pressure ulcer of other site, stage 2 (7) Septic shock Current Visit: Yes Status: Acute Subjective Principal diagnosis: Encephalopathy Interval history: Patient seen and examined at bedside. Patient remains intubated. She is on minimal sedation and is completely unresponsive. Patient's hypotension worsened last night requiring the addition of a third vasopressive agent. Patient also had frequent fevers treated with IV Tylenol. Objective PUL Vital signs: Last Vital Signs Temp 97.9 F 03/01/17 07:45 Pulse 95 03/01/17 08:00 Resp 16 03/01/17 08:00 BP 123/51 03/01/17 08:00 Pulse Ox 100 03/01/17 08:00 General appearance: comatose ENT: oropharynx moist Auscultation: bilateral: diminished breath sounds Cardiovascular: other (Regular rhythm, tachycardia) Gastrointestinal: absent bowel sounds, soft, non-tender, non-distended Extremities: other (Extremities are cold to touch with mottling present) other (Patient is completely unresponsive at this time. Pupils are equal bilaterally and very sluggish response to light) Ventilator Settings Ventilator Settings: Ventilator Settings, Last 8 Hours Ventilator Mode A/C Ventilator Mode A/C Ventilator Mode A/C Ventilator Mode A/C Ventilator Mode A/C Ventilator Mode A/C Ventilator Mode A/C Ventilator Tidal Volume 350 Setting Ventilator Tidal Volume 350 Setting Ventilator Tidal Volume 350 Setting Ventilator Tidal Volume 350 Setting Ventilator Tidal Volume 350 Setting Ventilator Tidal Volume 350 Setting Ventilator Tidal Volume 350 Setting Ventilator Respiratory Rate 16 Setting Ventilator Respiratory Rate 16 Setting Ventilator Respiratory Rate 16 Setting Ventilator Respiratory Rate 16 Setting Ventilator Respiratory Rate 16 Setting Ventilator Respiratory Rate 16 Setting Ventilator Respiratory Rate 16 Setting Actual Respiratory Rate 16 Actual Respiratory Rate 17 Actual Respiratory Rate 17 Actual Respiratory Rate 16 Actual Respiratory Rate 16 Actual Respiratory Rate 16 Actual Respiratory Rate 16 Positive End Expiratory 8 Pressure Positive End Expiratory 8 Pressure Positive End Expiratory 8 Pressure Positive End Expiratory 8 Pressure Positive End Expiratory 8 Pressure Positive End Expiratory 8 Pressure Positive End Expiratory 8 Pressure Peak Inspiratory Airway 29 Pressure Peak Inspiratory Airway 35 Pressure Peak Inspiratory Airway 26 Pressure Peak Inspiratory Airway 40 Pressure Peak Inspiratory Airway 41 Pressure Peak Inspiratory Airway 31 Pressure Peak Inspiratory Airway 34 Pressure Results - Laboratory Findings CBC and BMP: 03/01/17 04:10 03/01/17 04:10 ABG ABG pH 7.34 pH Units (7.32-7.45) 02/26/17 04:10 ABG pCO2 51 mmHg (35-45) H 02/26/17 04:10 ABG pO2 67 mmHg (85-104) L 02/26/17 04:10 ABG O2 Saturation 92 % (95-98) L 02/26/17 04:10 PT/INR, D-dimer PT 39.0 Seconds (9.4-12.1) H D 03/01/17 04:10 Abnormal lab findings: Abnormal lab results WBC 50.3 K/mcL (4.3-11.1) H* 03/01/17 04:10 Hgb 9.8 g/dL (11.5-15.4) L D 03/01/17 04:10 MCV 82.9 fL (83.0-100.0) L 03/01/17 04:10 MCH 23.0 pg (28.0-33.3) L 03/01/17 04:10 MCHC 27.8 g/dL (31.6-35.5) L 03/01/17 04:10 RDW 21.2 % (11.5-14.5) H 03/01/17 04:10 MPV 9.2 fL (9.4-12.4) L 03/01/17 04:10 Band Neutrophils % 12.0 % (0-4) H 02/28/17 03:17 Neutrophils # 46.1 K/mcL (1.6-8.9) H 03/01/17 04:10 Lymphocytes # 0.4 K/mcL (0.6-4.6) L 03/01/17 04:10 Monocytes # 3.0 K/mcL (0.0-1.3) H 03/01/17 04:10 Nucleated RBCs/100 WBC 0.6 /100 WBC (0) H 03/01/17 04:10 Immature Plt Fraction 1.0 % (1.1-6.1) L 02/25/17 07:11 Polychromasia 1+ (Not Present) A 03/01/17 04:10 Hypochromasia Present (Not Present) A 02/28/17 03:17 Basophilic Stippling 1+ (Not Present) A 02/25/17 07:11 Anisocytosis 2+ (Not Present) A 02/26/17 03:10 Microcytosis Present (Not Present) A 02/28/17 03:17 Acanthocytes (Spur) 1+ (Not Present) A 02/28/17 03:17 PT 39.0 Seconds (9.4-12.1) H D 03/01/17 04:10 APTT 110.3 Seconds (26.0-36.0) H* 03/01/17 04:10 Heparin Anti-Xa, Unfract 0.01 IU/mL (0.30-0.70) L 03/01/17 04:10 ABG pCO2 51 mmHg (35-45) H 02/26/17 04:10 ABG pO2 67 mmHg (85-104) L 02/26/17 04:10 ABG HCO3 27.5 mEQ/L (21-27) H 02/26/17 04:10 ABG Total CO2 29.1 mEq/L (20-26) H 02/26/17 04:10 ABG O2 Saturation 92 % (95-98) L 02/26/17 04:10 VBG pH 7.08 pH Units (7.32-7.42) L* 02/25/17 05:40 VBG pCO2 92 mmHg (41-51) H 02/25/17 05:40 VBG pO2 67 mmHg (25-40) H 02/25/17 05:40 VBG HCO3 27.3 mEq/L (21-27) H 02/25/17 05:40 Sodium 122 mEq/L (136-145) L D 03/01/17 04:10 Chloride 88 mEq/L (98-109) L 03/01/17 04:10 BUN 40 mg/dL (7-20) H D 03/01/17 04:10 Creatinine 4.24 mg/dL (0.57-1.11) H 03/01/17 04:10 Est GFR ( Amer) 12 (> 60) L 03/01/17 04:10 Est GFR (Non-Af Amer) 10 (> 60) L 03/01/17 04:10 Glucose 296 mg/dL (70-99) H 03/01/17 04:10 POC Glucose 240 (58-89) H 03/01/17 05:10 Calculated Osmolality 275 (280-300) L 03/01/17 04:10 Ionized Calcium 1.12 mmol/L (1.15-1.35) L 03/01/17 04:10 Phosphorus 5.6 mg/dL (2.3-4.7) H D 03/01/17 04:10 Magnesium 1.5 mg/dL (1.6-2.6) L 03/01/17 04:10 Alkaline Phosphatase 175 Units/L (38-126) H 02/26/17 03:10 B-Natriuretic Peptide 2203 pg/mL (0-100) H 02/25/17 07:11 Serum Total Protein 5.7 g/dL (6.0-8.3) L 02/26/17 03:10 Albumin 2.4 g/dL (3.5-5.0) L 02/26/17 03:10 Albumin/Globulin Ratio 0.7 (1.1-2.2) L 02/26/17 03:10 Ur Specimen Adequacy See below A 02/25/17 06:28 Urine Clarity Turbid (Clear) A 02/25/17 06:28 Urine Protein >=300 mg/dL (Neg-Trace) H 02/25/17 06:28 Urine Ketones Trace mg/dL (Negative) H 02/25/17 06:28 Urine Blood Large (Negative) H 02/25/17 06:28 Ur Leukocyte Esterase Large (Negative) H 02/25/17 06:28 Ur Culture Indicated? YES (NO) A 02/25/17 06:28 Pleural Appearance Hazy (Clear) A 02/26/17 15:30 Pleural RBC 0.020 M/mcL (0.000-0.002) H 02/26/17 15:30 - Microbiology Findings Microbiology Findings: Microbiology, Last 48 Hours 02/26/17 15:30 Body Fluid Culture - Preliminary Pleural Fluid 02/26/17 12:41 Blood Culture - Preliminary Port System No growth. 02/26/17 12:41 Blood Culture - Preliminary Port System No growth. 02/26/17 10:27 Blood Culture - Preliminary Peripheral Venipuncture No growth. 02/26/17 10:20 Blood Culture - Preliminary Peripheral Venipuncture No growth. 02/25/17 14:20 Sputum Culture - Final Sputum Nitesha ascorbata - Clinical Findings Intake & Output: Intake & Output 02/28/17 03/01/17 03/01/17 23:59 07:59 15:59 Intake Total 1314 / 1314 1580 / 1580 199 / 199 Balance 1314 / 1314 1580 / 1580 199 / 199 Weight 82.9 kg - Stroke Is the patient on any antithrombotics?: No Are there any contradictions to antithrombotics?: Yes Contraindication Antithromb by Day Two: Not Indicated - Due to Bleeding Disorder or Risk of Bleeding (Coagulapathy with elevated INR) Consult Discharge Plan - Plan Referrals: Henrry Mccullough MD [Primary Care Provider] - <Tyler Guthrie - Last Filed: 03/01/17 09:19> Date of Encounter: 03/01/17 Objective PUL Vital signs: Last Vital Signs Temp 97.9 F 03/01/17 07:45 Pulse 100 03/01/17 09:00 Resp 16 03/01/17 09:00 BP 123/49 03/01/17 09:00 Pulse Ox 100 03/01/17 09:00 Ventilator Settings Ventilator Settings: Ventilator Settings, Last 8 Hours Ventilator Mode A/C Ventilator Mode A/C Ventilator Mode A/C Ventilator Mode A/C Ventilator Mode A/C Ventilator Mode A/C Ventilator Mode A/C Ventilator Mode A/C Ventilator Tidal Volume 350 Setting Ventilator Tidal Volume 350 Setting Ventilator Tidal Volume 350 Setting Ventilator Tidal Volume 350 Setting Ventilator Tidal Volume 350 Setting Ventilator Tidal Volume 350 Setting Ventilator Tidal Volume 350 Setting Ventilator Tidal Volume 350 Setting Ventilator Respiratory Rate 16 Setting Ventilator Respiratory Rate 16 Setting Ventilator Respiratory Rate 16 Setting Ventilator Respiratory Rate 16 Setting Ventilator Respiratory Rate 16 Setting Ventilator Respiratory Rate 16 Setting Ventilator Respiratory Rate 16 Setting Ventilator Respiratory Rate 16 Setting Actual Respiratory Rate 16 Actual Respiratory Rate 16 Actual Respiratory Rate 17 Actual Respiratory Rate 17 Actual Respiratory Rate 16 Actual Respiratory Rate 16 Actual Respiratory Rate 16 Actual Respiratory Rate 16 Positive End Expiratory 8 Pressure Positive End Expiratory 8 Pressure Positive End Expiratory 8 Pressure Positive End Expiratory 8 Pressure Positive End Expiratory 8 Pressure Positive End Expiratory 8 Pressure Positive End Expiratory 8 Pressure Positive End Expiratory 8 Pressure Peak Inspiratory Airway 39 Pressure Peak Inspiratory Airway 29 Pressure Peak Inspiratory Airway 35 Pressure Peak Inspiratory Airway 26 Pressure Peak Inspiratory Airway 40 Pressure Peak Inspiratory Airway 41 Pressure Peak Inspiratory Airway 31 Pressure Peak Inspiratory Airway 34 Pressure Results - Laboratory Findings CBC and BMP: 03/01/17 04:10 03/01/17 04:10 ABG ABG pH 7.34 pH Units (7.32-7.45) 02/26/17 04:10 ABG pCO2 51 mmHg (35-45) H 02/26/17 04:10 ABG pO2 67 mmHg (85-104) L 02/26/17 04:10 ABG O2 Saturation 92 % (95-98) L 02/26/17 04:10 PT/INR, D-dimer PT 39.0 Seconds (9.4-12.1) H D 03/01/17 04:10 Abnormal lab findings: Abnormal lab results WBC 50.3 K/mcL (4.3-11.1) H* 03/01/17 04:10 Hgb 9.8 g/dL (11.5-15.4) L D 03/01/17 04:10 MCV 82.9 fL (83.0-100.0) L 03/01/17 04:10 MCH 23.0 pg (28.0-33.3) L 03/01/17 04:10 MCHC 27.8 g/dL (31.6-35.5) L 03/01/17 04:10 RDW 21.2 % (11.5-14.5) H 03/01/17 04:10 MPV 9.2 fL (9.4-12.4) L 03/01/17 04:10 Band Neutrophils % 12.0 % (0-4) H 02/28/17 03:17 Neutrophils # 46.1 K/mcL (1.6-8.9) H 03/01/17 04:10 Lymphocytes # 0.4 K/mcL (0.6-4.6) L 03/01/17 04:10 Monocytes # 3.0 K/mcL (0.0-1.3) H 03/01/17 04:10 Nucleated RBCs/100 WBC 0.6 /100 WBC (0) H 03/01/17 04:10 Immature Plt Fraction 1.0 % (1.1-6.1) L 02/25/17 07:11 Polychromasia 1+ (Not Present) A 03/01/17 04:10 Hypochromasia Present (Not Present) A 02/28/17 03:17 Basophilic Stippling 1+ (Not Present) A 02/25/17 07:11 Anisocytosis 2+ (Not Present) A 02/26/17 03:10 Microcytosis Present (Not Present) A 02/28/17 03:17 Acanthocytes (Spur) 1+ (Not Present) A 02/28/17 03:17 PT 39.0 Seconds (9.4-12.1) H D 03/01/17 04:10 APTT 110.3 Seconds (26.0-36.0) H* 03/01/17 04:10 Heparin Anti-Xa, Unfract 0.01 IU/mL (0.30-0.70) L 03/01/17 04:10 ABG pCO2 51 mmHg (35-45) H 02/26/17 04:10 ABG pO2 67 mmHg (85-104) L 02/26/17 04:10 ABG HCO3 27.5 mEQ/L (21-27) H 02/26/17 04:10 ABG Total CO2 29.1 mEq/L (20-26) H 02/26/17 04:10 ABG O2 Saturation 92 % (95-98) L 02/26/17 04:10 VBG pH 7.08 pH Units (7.32-7.42) L* 02/25/17 05:40 VBG pCO2 92 mmHg (41-51) H 02/25/17 05:40 VBG pO2 67 mmHg (25-40) H 02/25/17 05:40 VBG HCO3 27.3 mEq/L (21-27) H 02/25/17 05:40 Sodium 122 mEq/L (136-145) L D 03/01/17 04:10 Chloride 88 mEq/L (98-109) L 03/01/17 04:10 BUN 40 mg/dL (7-20) H D 03/01/17 04:10 Creatinine 4.24 mg/dL (0.57-1.11) H 03/01/17 04:10 Est GFR ( Amer) 12 (> 60) L 03/01/17 04:10 Est GFR (Non-Af Amer) 10 (> 60) L 03/01/17 04:10 Glucose 296 mg/dL (70-99) H 03/01/17 04:10 POC Glucose 240 (58-89) H 03/01/17 05:10 Calculated Osmolality 275 (280-300) L 03/01/17 04:10 Ionized Calcium 1.12 mmol/L (1.15-1.35) L 03/01/17 04:10 Phosphorus 5.6 mg/dL (2.3-4.7) H D 03/01/17 04:10 Magnesium 1.5 mg/dL (1.6-2.6) L 03/01/17 04:10 Alkaline Phosphatase 175 Units/L (38-126) H 02/26/17 03:10 B-Natriuretic Peptide 2203 pg/mL (0-100) H 02/25/17 07:11 Serum Total Protein 5.7 g/dL (6.0-8.3) L 02/26/17 03:10 Albumin 2.4 g/dL (3.5-5.0) L 02/26/17 03:10 Albumin/Globulin Ratio 0.7 (1.1-2.2) L 02/26/17 03:10 Ur Specimen Adequacy See below A 02/25/17 06:28 Urine Clarity Turbid (Clear) A 02/25/17 06:28 Urine Protein >=300 mg/dL (Neg-Trace) H 02/25/17 06:28 Urine Ketones Trace mg/dL (Negative) H 02/25/17 06:28 Urine Blood Large (Negative) H 02/25/17 06:28 Ur Leukocyte Esterase Large (Negative) H 02/25/17 06:28 Ur Culture Indicated? YES (NO) A 02/25/17 06:28 Pleural Appearance Hazy (Clear) A 02/26/17 15:30 Pleural RBC 0.020 M/mcL (0.000-0.002) H 02/26/17 15:30 - Microbiology Findings Microbiology Findings: Microbiology, Last 48 Hours 02/26/17 15:30 Body Fluid Culture - Preliminary Pleural Fluid 02/26/17 12:41 Blood Culture - Preliminary Port System No growth. 02/26/17 12:41 Blood Culture - Preliminary Port System No growth. 02/26/17 10:27 Blood Culture - Preliminary Peripheral Venipuncture No growth. 02/26/17 10:20 Blood Culture - Preliminary Peripheral Venipuncture No growth. 02/25/17 14:20 Sputum Culture - Final Sputum Kluyvera ascorbata - Clinical Findings Intake & Output: Intake & Output 02/28/17 03/01/17 03/01/17 23:59 07:59 15:59 Intake Total 1314 / 1314 1580 / 1580 557 / 557 Balance 1314 / 1314 1580 / 1580 557 / 557 Weight 82.9 kg
--- NOTE | 2017-03-01 09:08 | Nephrology Progress Note ---
Date of Encounter: 03/01/17 Time of Encounter: 08:50 - Assessment and Plan (1) End-stage renal disease Current Visit: No Status: Acute Acute on chronic respiratory failure, encephalopathy, cirrhosis. No HD today, Thermometer Tester felt too unstable. Subjective Principal diagnosis: Encephalopathy Interval history: Intubated, sedated, pressors. FIO2 60, peep 5. Objective - Vital Signs Vital signs: Vital Signs Temp Pulse Resp BP Pulse Ox 03/01/17 09:00 100 16 123/49 100 03/01/17 08:00 95 16 123/51 100 03/01/17 07:45 97.9 F 03/01/17 07:20 19 100 03/01/17 07:00 98 17 130/47 70 03/01/17 06:09 16 120/44 100 03/01/17 06:00 95 16 127/48 100 03/01/17 05:00 101 16 119/45 100 03/01/17 04:38 100.5 F H 03/01/17 04:00 100.5 F H 103 16 111/49 100 03/01/17 03:54 16 110/46 100 03/01/17 03:00 104 16 106/54 100 03/01/17 02:04 16 114/50 100 03/01/17 02:00 98.1 F 111 17 114/50 100 03/01/17 01:00 104 16 105/38 100 03/01/17 00:05 16 101/41 100 03/01/17 00:00 101.3 F H 101 19 101/41 100 02/28/17 23:51 101.3 F H 02/28/17 23:00 102 16 97/39 100 02/28/17 22:00 102 17 98/39 100 02/28/17 21:55 16 92/52 100 02/28/17 21:00 98 17 87/39 100 02/28/17 20:21 101.6 F H 02/28/17 20:00 101.6 F H 105 16 100/44 100 02/28/17 19:49 18 94/51 100 02/28/17 19:00 103 16 102/43 100 02/28/17 18:00 105 19 96/48 100 02/28/17 17:00 103 17 88/49 100 02/28/17 16:00 96 17 98/48 100 02/28/17 15:24 16 83/46 100 02/28/17 15:20 98.9 F 02/28/17 15:00 99 17 90/44 100 02/28/17 14:00 92 17 93/47 100 02/28/17 13:50 17 91/47 100 02/28/17 13:00 92 16 92/49 100 02/28/17 12:00 93 16 87/48 100 02/28/17 11:51 97.9 F 02/28/17 11:06 17 93/52 100 02/28/17 11:00 89 16 92/44 100 02/28/17 10:00 89 16 106/52 100 Intake and Output 02/28/17 03/01/17 03/01/17 23:59 07:59 15:59 Intake Total 1314 / 1314 1580 / 1580 299 / 299 Balance 1314 / 1314 1580 / 1580 299 / 299 Intake: IV Fluids 1163 / 1163 1535 / 1535 249 / 249 Vasostrict 40 UNIT In 102 / 102 Dextrose 5% 100 ML @ 0.03 UNIT/MIN 4.59 mls/hr IV .[id number] [facility] Rx#: [id number] PRECEDEX 400 mcg In 100 100 / 100 49 / 49 ml @ 0.2 MCG/KG/HR 4.389 mls/hr IVC .[id number] [facility] Rx#:[id number] EPINEPHrine 1 MG In 502 / 502 Dextrose 5% 250 ML @ 2 MCG/MIN 30.12 mls/hr IVC CONT [facility] Rx#:[id number] FentaNYL (PF) 1,000 MCG 45 / 45 In 0.9 % Sodium Chloride 80 ML @ 50 MCG/HR 5 mls/ hr IVC CONT [facility] Rx#: [id number] Heparin 25,000 UNIT/500 75 / 75 ML D5W 25,000 unit In 500 ml @ 14 UNIT/KG/HR 23.52 mls/hr IVC .[id number] [facility] Rx#:[id number] Levophed 8 MG In Dextrose 516 / 516 258 / 258 5% 250 ML @ 5 MCG/MIN 9. 67 mls/hr IVC CONT PRN Rx #:[id number] Ofirmev 1,000 mg/100 ml 1 100 / 100 ,000 mg In 100 ml @ 400 mls/hr IVPB ONCE ONE Rx#: [id number] Azactam 500 MG In 100 / 100 100 / 100 100 / 100 Dextrose 5% 100 ML @ 200 mls/hr IVPB Q8H [facility] Rx#: [id number] Zyvox Premix 600mg/300mL 300 / 300 300 / 300 600 mg In 300 ml @ 150 mls/hr IVPB Q12HR [facility] Rx# :[id number] Flagyl Premix 500 MG/100 100 / 100 100 / 100 100 / 100 ML 500 mg In 100 ml @ 100 mls/hr IVPB Q8HR [facility] Rx# :[id number] Tube Feeding 91 / 91 45 / 45 Free Water 50 / 50 Free Water Intake Amount 60 / 60 Other: Stool Size Smear Stool Consistency soft formed Stool Color Brown # Bowel Movements 1 Weight 82.9 kg Blood Glucose* 208 208 - General Appearance General appearance: Present: well-developed, well-nourished, appears started age , chronically ill, intubated EENT: Present: mucous membranes moist Neck: Present: no JVD Respiratory: Present: course breath sounds Cardiology: Present: no edema, irregular rhythm Additional Comments: mottling of feet Gastrointestinal: Present: hypoactive bowel sounds - Lab 03/01/17 04:10 03/01/17 04:10 Most recent lab results ABG pH 7.34 pH Units (7.32-7.45) 02/26/17 04:10 ABG pCO2 51 mmHg (35-45) H 02/26/17 04:10 ABG pO2 67 mmHg (85-104) L 02/26/17 04:10 ABG HCO3 27.5 mEQ/L (21-27) H 02/26/17 04:10 ABG O2 Saturation 92 % (95-98) L 02/26/17 04:10 Calcium 8.7 mg/dL (8.6-10.8) 03/01/17 04:10 Phosphorus 5.6 mg/dL (2.3-4.7) H D 03/01/17 04:10 Magnesium 1.5 mg/dL (1.6-2.6) L 03/01/17 04:10 - Stroke Is the patient on any antithrombotics?: Yes Contraindication Antithromb by Day Two: Not Indicated - Due to Bleeding Disorder or Risk of Bleeding (Coagulapathy with elevated INR) Consult Discharge Plan - Plan Referrals: Henrry Mccullough MD [Primary Care Provider] -
[2017-03-01] MEDS: FentaNYL (PF) 1,000 MCG in 0.9 % Sodium Chloride 80 ML IVC SCH (09:15)
--- NOTE | 2017-03-01 13:21 | Palliative Progress Note ---
Date of Encounter: 03/01/17 Time of Encounter: 10:15 - Assessment and plan (1) Dyspnea Current Visit: No Status: Acute Assessment and plan: Ms. Rodriguez remains intubated, sedated, and on mechanical ventilation. Qualifiers: Dyspnea type: shortness of breath Qualified Code(s): R06.02 - Shortness of breath (2) Acute respiratory failure with hypoxia and hypercapnia Current Visit: Yes Status: Acute (3) End stage renal disease Current Visit: Yes Status: Acute Assessment and plan: Nephrology following. (4) Goals of care, counseling/discussion Current Visit: Yes Status: Acute Assessment and plan: Goals of care follow-up with family after discussion with Dr. Sosa. Family continues to support change in code status to DNR-Arrest. Will continue to follow daily. (5) Cirrhosis Current Visit: No Status: Chronic Qualifiers: Hepatic cirrhosis type: other cirrhosis Qualified Code(s): K74.69 - Other cirrhosis of liver - Time Spent With Patient Total time spent is greater than 50% in coordination of care (as documented) at patient's floor/unit and/or counseling patient: - Subjective Interval history: Ms. Rodriguez is in the ICU intubated, sedated and on mechanical ventilation. Events overnight noted. - Constitutional Vitals: Abnormal lab results WBC 50.3 K/mcL (4.3-11.1) H* 03/01/17 04:10 Hgb 9.8 g/dL (11.5-15.4) L D 03/01/17 04:10 MCV 82.9 fL (83.0-100.0) L 03/01/17 04:10 MCH 23.0 pg (28.0-33.3) L 03/01/17 04:10 MCHC 27.8 g/dL (31.6-35.5) L 03/01/17 04:10 RDW 21.2 % (11.5-14.5) H 03/01/17 04:10 MPV 9.2 fL (9.4-12.4) L 03/01/17 04:10 Band Neutrophils % 12.0 % (0-4) H 02/28/17 03:17 Neutrophils # 46.1 K/mcL (1.6-8.9) H 03/01/17 04:10 Lymphocytes # 0.4 K/mcL (0.6-4.6) L 03/01/17 04:10 Monocytes # 3.0 K/mcL (0.0-1.3) H 03/01/17 04:10 Nucleated RBCs/100 WBC 0.6 /100 WBC (0) H 03/01/17 04:10 Immature Plt Fraction 1.0 % (1.1-6.1) L 02/25/17 07:11 Polychromasia 1+ (Not Present) A 03/01/17 04:10 Hypochromasia Present (Not Present) A 02/28/17 03:17 Basophilic Stippling 1+ (Not Present) A 02/25/17 07:11 Anisocytosis 2+ (Not Present) A 02/26/17 03:10 Microcytosis Present (Not Present) A 02/28/17 03:17 Acanthocytes (Spur) 1+ (Not Present) A 02/28/17 03:17 PT 39.0 Seconds (9.4-12.1) H D 03/01/17 04:10 APTT 110.3 Seconds (26.0-36.0) H* 03/01/17 04:10 Heparin Anti-Xa, Unfract 0.01 IU/mL (0.30-0.70) L 03/01/17 04:10 ABG pCO2 51 mmHg (35-45) H 02/26/17 04:10 ABG pO2 67 mmHg (85-104) L 02/26/17 04:10 ABG HCO3 27.5 mEQ/L (21-27) H 02/26/17 04:10 ABG Total CO2 29.1 mEq/L (20-26) H 02/26/17 04:10 ABG O2 Saturation 92 % (95-98) L 02/26/17 04:10 VBG pH 7.08 pH Units (7.32-7.42) L* 02/25/17 05:40 VBG pCO2 92 mmHg (41-51) H 02/25/17 05:40 VBG pO2 67 mmHg (25-40) H 02/25/17 05:40 VBG HCO3 27.3 mEq/L (21-27) H 02/25/17 05:40 Sodium 122 mEq/L (136-145) L D 03/01/17 04:10 Chloride 88 mEq/L (98-109) L 03/01/17 04:10 BUN 40 mg/dL (7-20) H D 03/01/17 04:10 Creatinine 4.24 mg/dL (0.57-1.11) H 03/01/17 04:10 Est GFR ( Amer) 12 (> 60) L 03/01/17 04:10 Est GFR (Non-Af Amer) 10 (> 60) L 03/01/17 04:10 Glucose 296 mg/dL (70-99) H 03/01/17 04:10 POC Glucose 240 (58-89) H 03/01/17 05:10 Calculated Osmolality 275 (280-300) L 03/01/17 04:10 Ionized Calcium 1.12 mmol/L (1.15-1.35) L 03/01/17 04:10 Phosphorus 5.6 mg/dL (2.3-4.7) H D 03/01/17 04:10 Magnesium 1.5 mg/dL (1.6-2.6) L 03/01/17 04:10 Alkaline Phosphatase 175 Units/L (38-126) H 02/26/17 03:10 B-Natriuretic Peptide 2203 pg/mL (0-100) H 02/25/17 07:11 Serum Total Protein 5.7 g/dL (6.0-8.3) L 02/26/17 03:10 Albumin 2.4 g/dL (3.5-5.0) L 02/26/17 03:10 Albumin/Globulin Ratio 0.7 (1.1-2.2) L 02/26/17 03:10 Ur Specimen Adequacy See below A 02/25/17 06:28 Urine Clarity Turbid (Clear) A 02/25/17 06:28 Urine Protein >=300 mg/dL (Neg-Trace) H 02/25/17 06:28 Urine Ketones Trace mg/dL (Negative) H 02/25/17 06:28 Urine Blood Large (Negative) H 02/25/17 06:28 Ur Leukocyte Esterase Large (Negative) H 02/25/17 06:28 Ur Culture Indicated? YES (NO) A 02/25/17 06:28 Pleural Appearance Hazy (Clear) A 02/26/17 15:30 Pleural RBC 0.020 M/mcL (0.000-0.002) H 02/26/17 15:30 Exam: 71 year old female appearing chronically ill. She is intubated, sedated, on mechanical ventilation - Eye Additional comments: pupils 3-4mm and sluggish - ENT ENT exam: Present: mucous membranes moist - Respiratory Respiratory exam: Present: wheezes (bilateral upper lobes). Absent: respiratory distress - Cardiovascular Cardiovascular exam: Present: RRR - Expanded Cardiovascular Exam Peripheral pulses: 0: Posterior Tibialis (L) (doppler), Posterior Tibialis (R) ( doppler), Dorsalis Pedis (L) PM (doppler), Dorsalis Pedis (R) PM (doppler) - GI/Abdominal GI/Abdominal exam: Present: normal bowel sounds. Absent: distended, firm, guarding, tenderness - Extremities Exam Additional comments: bilateral lower extremities cool to touch - Neurological Exam Neurological exam: Absent: alert Additional comments: sedated on mechanical ventilation - Psychiatric Psychiatric exam: Absent: agitated, anxious - Skin Skin exam: Present: mottled (bilateral feet) Palliative Quality Palliative Quality: Screen for Code Status: Yes, Screen for Goals of Care: Yes, Screen for Pain: Yes, If Pain Regimen Started, Initiate Bowel Regimen: Yes, Screen for Nausea/Vomitting: Yes - Labs CBC & Chem 7: 03/01/17 04:10 03/01/17 04:10 Labs: Laboratory Results - last 24 hr 02/28/17 02/28/17 02/28/17 06:52 11:35 13:33 WBC RBC Hgb Hct MCV MCH MCHC RDW Plt Count MPV Immature Gran % Seg Neutrophils % Lymphocytes % Monocytes % Eosinophils % Basophils % Neutrophils # Lymphocytes # Monocytes # Eosinophils # Basophils # Nucleated RBCs/100 WBC Platelet Estimate Polychromasia PT INR APTT 116.7 H* Heparin Anti-Xa, Unfract 0.06 L Sodium Potassium Chloride Carbon Dioxide BUN Creatinine Est GFR ( Amer) Est GFR (Non-Af Amer) BUN/Creatinine Ratio Glucose POC Glucose 201 H 182 H Calculated Osmolality Calcium Ionized Calcium Phosphorus Magnesium 02/28/17 02/28/17 02/28/17 17:07 22:10 23:29 WBC RBC Hgb Hct MCV MCH MCHC RDW Plt Count MPV Immature Gran % Seg Neutrophils % Lymphocytes % Monocytes % Eosinophils % Basophils % Neutrophils # Lymphocytes # Monocytes # Eosinophils # Basophils # Nucleated RBCs/100 WBC Platelet Estimate Polychromasia PT INR APTT 93.2 H Heparin Anti-Xa, Unfract Sodium Potassium Chloride Carbon Dioxide BUN Creatinine Est GFR ( Amer) Est GFR (Non-Af Amer) BUN/Creatinine Ratio Glucose POC Glucose 177 H 208 H Calculated Osmolality Calcium Ionized Calcium Phosphorus Magnesium 03/01/17 03/01/17 03/01/17 04:10 04:10 04:10 WBC 50.3 H* RBC 4.26 Hgb 9.8 L D Hct 35.3 MCV 82.9 L MCH 23.0 L MCHC 27.8 L RDW 21.2 H Plt Count 309 MPV 9.2 L Immature Gran % 1.4 Seg Neutrophils % 91.6 Lymphocytes % 0.8 Monocytes % 5.9 Eosinophils % 0.0 Basophils % 0.3 Neutrophils # 46.1 H Lymphocytes # 0.4 L Monocytes # 3.0 H Eosinophils # 0.0 Basophils # 0.2 Nucleated RBCs/100 WBC 0.6 H Platelet Estimate Normal Polychromasia 1+ A PT 39.0 H D INR 3.5 D APTT Heparin Anti-Xa, Unfract Sodium 122 L D Potassium 3.9 Chloride 88 L Carbon Dioxide 23 BUN 40 H D Creatinine 4.24 H Est GFR ( Amer) 12 L Est GFR (Non-Af Amer) 10 L BUN/Creatinine Ratio 9 Glucose 296 H POC Glucose Calculated Osmolality 275 L Calcium 8.7 Ionized Calcium 1.12 L Phosphorus 5.6 H D Magnesium 1.5 L 03/01/17 03/01/17 04:10 05:10 WBC RBC Hgb Hct MCV MCH MCHC RDW Plt Count MPV Immature Gran % Seg Neutrophils % Lymphocytes % Monocytes % Eosinophils % Basophils % Neutrophils # Lymphocytes # Monocytes # Eosinophils # Basophils # Nucleated RBCs/100 WBC Platelet Estimate Polychromasia PT INR APTT 110.3 H* Heparin Anti-Xa, Unfract 0.01 L Sodium Potassium Chloride Carbon Dioxide BUN Creatinine Est GFR ( Amer) Est GFR (Non-Af Amer) BUN/Creatinine Ratio Glucose POC Glucose 240 H Calculated Osmolality Calcium Ionized Calcium Phosphorus Magnesium - Impressions Impressions Chest X-Ray 03/01/17 11:08 IMPRESSION: Persistent CHF. Increased left pleural effusion and basilar volume loss. Satisfactory position of endotracheal tube. D/ / Cameron John MD / Cameron John MD Interpreting Provider: Cameron John MD - ABG Interpretation ABG results: ABG ABG pH 7.34 pH Units (7.32-7.45) 02/26/17 04:10 ABG pCO2 51 mmHg (35-45) H 02/26/17 04:10 ABG pO2 67 mmHg (85-104) L 02/26/17 04:10 ABG O2 Saturation 92 % (95-98) L 02/26/17 04:10 PT/INR, D-dimer PT 39.0 Seconds (9.4-12.1) H D 03/01/17 04:10 Consult Discharge Plan - Plan Referrals: Henrry Mccullough MD [Primary Care Provider] -
[2017-03-01] MEDS: Vasopressin 40 UNIT in D5% in Water 100 ML IV SCH (17:51)
[2017-03-02] MEDS ORDERED: Aztreonam 500 MG in D5% in Water (Mini-Bag+) 100 ML IVPB SCH (00:30)
[2017-03-02] MEDS: MetroNIDAZOLE 500 MG/100 ML 500 MG/100 ML BAG IVPB SCH ×4 (00:33→23:52)
[2017-03-02] MEDS: Insulin LISPRO 300 UNITS/3 ML VIAL SQ SCH ×6 (00:38→20:50)
[2017-03-02] MEDS: Lacri-Lube 3.5 GM TUBE BOTH EYES SCH ×7 (00:39→23:53)
[2017-03-02] MEDS: Dexmedetomidine HCl 400 MCG/100 ML MLS IVC SCH ×2 (00:39→23:50)
[2017-03-02] MEDS: Aztreonam 500 MG in D5% in Water 100 ML IVPB SCH ×3 (02:15→18:32)
[2017-03-02] MEDS: Norepinephrine 8 MG in D5% in Water 250 ML IVC PRN ×2 (04:09→17:00)
[2017-03-02 04:28] LABS: INR 5.2; Prothrombin Time 59.2 Seconds (9.4-12.1)
--- NOTE | 2017-03-02 07:53 | Pulmonology Progress Note ---
Date of Encounter: 03/02/17 Time of Encounter: 07:48 Assessment and Plan (1) Acute and chronic respiratory failure Current Visit: No Status: Acute Significant hypercapnia which is likely multifactorial in the setting of opioid use with poor clearance due to cirrhosis of the liver and end-stage renal disease. Hepatic encephalopathy can also be contributing given the patient's elevated ammonia. The patient also appears to have pulmonary edema in the setting of end-stage renal disease. At this time the patient is intubated and with no sedation patient only responds to pain with grimacing. We will completely discontinue sedation to evaluate mental status. Patient's need for vasopressor support has decreased. Patient is only on Levophed at this time. Patient has evidence of liver failure decompensation with a rising INR. We will discontinue heparin. Urine culture showing gram-positive cocci however given this dialysis patient with minimal urine output patient is likely colonized. Sputum culture shows Kluyvera ascobata which is likely a contaminant but given the patient's clinical status and leukocytosis we have initiated aztreonam. Leukocytosis this morning is pending. Source remains unclear. Zyvox has been added. 2 sets of blood cultures are negative. I again spoke with the daughter yesterday and updated her on the patient's deteriorating clinical condition. I explained that her prognosis is extremely poor and the patient's clinical status continues to decline despite maximum medical therapy. The patient's 2 daughters decided to make the patient a DNR CCA at this time. They continued to desire full aggressive treatment up to the point of arrest. Qualifiers: Respiratory failure complication: hypercapnia Qualified Code(s): J96.22 - Acute and chronic respiratory failure with hypercapnia (2) Acute encephalopathy Current Visit: No Status: Acute (3) Cirrhosis Current Visit: No Status: Chronic Qualifiers: Hepatic cirrhosis type: other cirrhosis Qualified Code(s): K74.69 - Other cirrhosis of liver (4) DM (diabetes mellitus), type 2 Current Visit: No Status: Chronic 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 mellitus halfway insulin use: with halfway use Chronic kidney disease stage: on chronic dialysis Qualified Code(s): E11.22 - Type 2 diabetes mellitus with diabetic chronic kidney disease; N18.6 - End stage renal disease; Z79.4 - residential (current) use of insulin; Z99.2 - Dependence on renal dialysis (5) Atrial fibrillation Current Visit: No Status: Chronic Qualifiers: Atrial fibrillation type: chronic Qualified Code(s): I48.2 - Chronic atrial fibrillation (6) Pressure ulcer Current Visit: Yes Status: Acute On the coccyx, midline, present on admission Qualifiers: Pressure ulcer location: other site Pressure ulcer stage: stage 2 Qualified Code(s): L89.892 - Pressure ulcer of other site, stage 2 (7) Septic shock Current Visit: Yes Status: Acute Subjective Principal diagnosis: Encephalopathy Interval history: Patient seen and examined at bedside. Patient remains intubated. She is on no sedation and will grimace to pain but there is no other response. No acute events overnight. Objective PUL Vital signs: Last Vital Signs Temp 98.3 F 03/02/17 03:30 Pulse 87 03/02/17 06:30 Resp 17 03/02/17 06:30 BP 105/51 03/02/17 06:30 Pulse Ox 100 03/02/17 06:30 General appearance: comatose ENT: oropharynx moist Effort: normal Auscultation: bilateral: diminished breath sounds Cardiovascular: regular rate and rhythm Gastrointestinal: absent bowel sounds, soft, non-tender, non-distended Extremities: no cyanosis, no edema, no clubbing, other (Feet are mottled and cold.) unable to assess due to mental status Ventilator Settings Ventilator Settings: Ventilator Settings, Last 8 Hours Ventilator Mode A/C Ventilator Mode A/C Ventilator Mode A/C Ventilator Mode A/C Ventilator Mode A/C Ventilator Mode A/C Ventilator Mode A/C Ventilator Mode A/C Ventilator Mode A/C Ventilator Mode A/C Ventilator Mode A/C Ventilator Tidal Volume 350 Setting Ventilator Tidal Volume 350 Setting Ventilator Tidal Volume 350 Setting Ventilator Tidal Volume 350 Setting Ventilator Tidal Volume 350 Setting Ventilator Tidal Volume 350 Setting Ventilator Tidal Volume 350 Setting Ventilator Tidal Volume 350 Setting Ventilator Tidal Volume 350 Setting Ventilator Tidal Volume 350 Setting Ventilator Tidal Volume 350 Setting Ventilator Respiratory Rate 16 Setting Ventilator Respiratory Rate 16 Setting Ventilator Respiratory Rate 16 Setting Ventilator Respiratory Rate 16 Setting Ventilator Respiratory Rate 16 Setting Ventilator Respiratory Rate 16 Setting Ventilator Respiratory Rate 16 Setting Ventilator Respiratory Rate 16 Setting Ventilator Respiratory Rate 16 Setting Ventilator Respiratory Rate 16 Setting Ventilator Respiratory Rate 16 Setting Actual Respiratory Rate 17 Actual Respiratory Rate 17 Actual Respiratory Rate 18 Actual Respiratory Rate 16 Actual Respiratory Rate 16 Actual Respiratory Rate 16 Actual Respiratory Rate 17 Actual Respiratory Rate 16 Actual Respiratory Rate 18 Actual Respiratory Rate 18 Actual Respiratory Rate 17 Positive End Expiratory 5 Pressure Positive End Expiratory 5 Pressure Positive End Expiratory 5 Pressure Positive End Expiratory 5 Pressure Positive End Expiratory 5 Pressure Positive End Expiratory 5 Pressure Positive End Expiratory 5 Pressure Positive End Expiratory 5 Pressure Positive End Expiratory 5 Pressure Positive End Expiratory 5 Pressure Positive End Expiratory 5 Pressure Peak Inspiratory Airway 31 Pressure Peak Inspiratory Airway 29 Pressure Peak Inspiratory Airway 31 Pressure Peak Inspiratory Airway 31 Pressure Peak Inspiratory Airway 32 Pressure Peak Inspiratory Airway 31 Pressure Peak Inspiratory Airway 31 Pressure Peak Inspiratory Airway 24 Pressure Peak Inspiratory Airway 23 Pressure Peak Inspiratory Airway 28 Pressure Peak Inspiratory Airway 24 Pressure Results - Laboratory Findings CBC and BMP: 03/01/17 04:10 03/01/17 04:10 ABG ABG pH 7.34 pH Units (7.32-7.45) 02/26/17 04:10 ABG pCO2 51 mmHg (35-45) H 02/26/17 04:10 ABG pO2 67 mmHg (85-104) L 02/26/17 04:10 ABG O2 Saturation 92 % (95-98) L 02/26/17 04:10 PT/INR, D-dimer PT 59.2 Seconds (9.4-12.1) H* D 03/02/17 03:48 Abnormal lab findings: Abnormal lab results WBC 50.3 K/mcL (4.3-11.1) H* 03/01/17 04:10 Hgb 9.8 g/dL (11.5-15.4) L D 03/01/17 04:10 MCV 82.9 fL (83.0-100.0) L 03/01/17 04:10 MCH 23.0 pg (28.0-33.3) L 03/01/17 04:10 MCHC 27.8 g/dL (31.6-35.5) L 03/01/17 04:10 RDW 21.2 % (11.5-14.5) H 03/01/17 04:10 MPV 9.2 fL (9.4-12.4) L 03/01/17 04:10 Band Neutrophils % 12.0 % (0-4) H 02/28/17 03:17 Neutrophils # 46.1 K/mcL (1.6-8.9) H 03/01/17 04:10 Lymphocytes # 0.4 K/mcL (0.6-4.6) L 03/01/17 04:10 Monocytes # 3.0 K/mcL (0.0-1.3) H 03/01/17 04:10 Nucleated RBCs/100 WBC 0.6 /100 WBC (0) H 03/01/17 04:10 Immature Plt Fraction 1.0 % (1.1-6.1) L 02/25/17 07:11 Polychromasia 1+ (Not Present) A 03/01/17 04:10 Hypochromasia Present (Not Present) A 02/28/17 03:17 Basophilic Stippling 1+ (Not Present) A 02/25/17 07:11 Anisocytosis 2+ (Not Present) A 02/26/17 03:10 Microcytosis Present (Not Present) A 02/28/17 03:17 Acanthocytes (Spur) 1+ (Not Present) A 02/28/17 03:17 PT 59.2 Seconds (9.4-12.1) H* D 03/02/17 03:48 INR 5.2 H* 03/02/17 03:48 APTT 110.3 Seconds (26.0-36.0) H* 03/01/17 04:10 Heparin Anti-Xa, Unfract 0.01 IU/mL (0.30-0.70) L 03/01/17 04:10 ABG pCO2 51 mmHg (35-45) H 02/26/17 04:10 ABG pO2 67 mmHg (85-104) L 02/26/17 04:10 ABG HCO3 27.5 mEQ/L (21-27) H 02/26/17 04:10 ABG Total CO2 29.1 mEq/L (20-26) H 02/26/17 04:10 ABG O2 Saturation 92 % (95-98) L 02/26/17 04:10 VBG pH 7.08 pH Units (7.32-7.42) L* 02/25/17 05:40 VBG pCO2 92 mmHg (41-51) H 02/25/17 05:40 VBG pO2 67 mmHg (25-40) H 02/25/17 05:40 VBG HCO3 27.3 mEq/L (21-27) H 02/25/17 05:40 Sodium 122 mEq/L (136-145) L D 03/01/17 04:10 Chloride 88 mEq/L (98-109) L 03/01/17 04:10 BUN 40 mg/dL (7-20) H D 03/01/17 04:10 Creatinine 4.24 mg/dL (0.57-1.11) H 03/01/17 04:10 Est GFR ( Amer) 12 (> 60) L 03/01/17 04:10 Est GFR (Non-Af Amer) 10 (> 60) L 03/01/17 04:10 Glucose 296 mg/dL (70-99) H 03/01/17 04:10 POC Glucose 115 (58-89) H 03/01/17 23:14 Calculated Osmolality 275 (280-300) L 03/01/17 04:10 Ionized Calcium 1.12 mmol/L (1.15-1.35) L 03/01/17 04:10 Phosphorus 5.6 mg/dL (2.3-4.7) H D 03/01/17 04:10 Magnesium 1.5 mg/dL (1.6-2.6) L 03/01/17 04:10 Alkaline Phosphatase 175 Units/L (38-126) H 02/26/17 03:10 B-Natriuretic Peptide 2203 pg/mL (0-100) H 02/25/17 07:11 Serum Total Protein 5.7 g/dL (6.0-8.3) L 02/26/17 03:10 Albumin 2.4 g/dL (3.5-5.0) L 02/26/17 03:10 Albumin/Globulin Ratio 0.7 (1.1-2.2) L 02/26/17 03:10 Ur Specimen Adequacy See below A 02/25/17 06:28 Urine Clarity Turbid (Clear) A 02/25/17 06:28 Urine Protein >=300 mg/dL (Neg-Trace) H 02/25/17 06:28 Urine Ketones Trace mg/dL (Negative) H 02/25/17 06:28 Urine Blood Large (Negative) H 02/25/17 06:28 Ur Leukocyte Esterase Large (Negative) H 02/25/17 06:28 Ur Culture Indicated? YES (NO) A 02/25/17 06:28 Pleural Appearance Hazy (Clear) A 02/26/17 15:30 Pleural RBC 0.020 M/mcL (0.000-0.002) H 02/26/17 15:30 - Microbiology Findings Microbiology Findings: Microbiology, Last 48 Hours 02/26/17 12:41 Blood Culture - Preliminary Port System No growth. 02/26/17 12:41 Blood Culture - Preliminary Port System No growth. 02/26/17 15:30 Body Fluid Culture - Final Pleural Fluid 02/26/17 10:27 Blood Culture - Preliminary Peripheral Venipuncture No growth. 02/26/17 10:20 Blood Culture - Preliminary Peripheral Venipuncture No growth. - Clinical Findings Intake & Output: Intake & Output 03/01/17 03/01/17 03/02/17 15:59 23:59 07:59 Intake Total 1130 / 1130 602 / 602 511.3 / 511.3 Output Total 0 / 0 0 / 0 Balance 1130 / 1130 602 / 602 511.3 / 511.3 Weight 87.165 kg - Stroke Is the patient on any antithrombotics?: No Are there any contradictions to antithrombotics?: Yes Contraindication Antithromb by Day Two: Not Indicated - Due to Bleeding Disorder or Risk of Bleeding (Coagulapathy with elevated INR) Consult Discharge Plan - Plan Referrals: Henrry Mccullough MD [Primary Care Provider] -
[2017-03-02 08:28] LABS: Albumin/Globulin Ratio 0.5 (1.1-2.2); Bilirubin,Direct 1.2 mg/dL (0.0-0.5); Bilirubin,Indirect 0.4 mg/dL (0.0-1.2); Bilirubin,Total 1.6 mg/dL (0.2-1.2); Calcium 8.7 mg/dL (8.6-10.8); Globulin 3.2 g/dL (2.4-3.5); Magnesium 1.2 mg/dL (1.6-2.6); Phosphorous 4.6 mg/dL (2.3-4.7); Potassium 4.3 mEq/L (3.5-4.5); Total Protein 4.8 g/dL (6.0-8.3)
[2017-03-02 08:31] LABS: Albumin 1.6 g/dL (3.5-5.0)
[2017-03-02 08:32] LABS: Mean Corpuscular Volume 78.8 fL (83.0-100.0); Nucleated Red Blood Cells 0.3 /100 WBC (0)
[2017-03-02 08:33] LABS: Hematocrit 30.9 % (35.3-44.9); Hemoglobin 9.1 g/dL (11.5-15.4); Mean Corpuscular HGB Conc 29.4 g/dL (31.6-35.5); Mean Corpuscular Hemoglobin 23.2 pg (28.0-33.3); Mean Platelet Volume 9.1 fL (9.4-12.4); Platelet Count 221 K/mcL (140-400); Red Blood Count 3.92 M/mcL (3.82-4.97); Red Cell Distribution Width 21.2 % (11.5-14.5)
--- NOTE | 2017-03-02 08:50 | Nephrology Progress Note ---
Date of Encounter: 03/02/17 Time of Encounter: 08:48 - Assessment and Plan (1) End-stage renal disease Current Visit: Yes Status: Acute We will attempt to provide dialysis today if her blood pressure tolerates it. She remains critically ill. Overall prognosis is poor. (2) Chronic diastolic (congestive) heart failure Current Visit: No Status: Acute (3) Acute and chronic respiratory failure Current Visit: No Status: Acute Qualifiers: Respiratory failure complication: hypercapnia Qualified Code(s): J96.22 - Acute and chronic respiratory failure with hypercapnia (4) Atrial fibrillation Current Visit: No Status: Chronic Qualifiers: Atrial fibrillation type: chronic Qualified Code(s): I48.2 - Chronic atrial fibrillation Subjective Principal diagnosis: Encephalopathy Interval history: Patient remains critically ill on the ventilator. She is requiring less pressors today compared to yesterday. She did not receive dialysis yesterday because of hypotension. We will attempt to do dialysis today. Objective - Vital Signs Vital signs: Vital Signs Temp Pulse Resp BP Pulse Ox 03/02/17 07:58 18 100 03/02/17 07:30 87 20 114/54 96 03/02/17 07:00 99.0 F 03/02/17 06:30 87 17 105/51 100 03/02/17 06:00 17 100 03/02/17 05:00 80 18 103/48 98 03/02/17 04:00 82 17 99/42 99 03/02/17 03:57 18 107/41 100 03/02/17 03:45 84 16 107/41 99 03/02/17 03:30 98.3 F 03/02/17 02:13 17 102/43 100 03/02/17 02:00 84 16 104/43 100 03/02/17 01:00 85 18 100/52 100 03/02/17 00:02 19 105/46 100 03/02/17 00:00 76 17 105/46 100 03/01/17 23:30 79 17 102/46 100 03/01/17 23:10 98.0 F 03/01/17 22:25 17 115/48 100 03/01/17 22:00 82 16 112/56 100 03/01/17 21:15 79 16 112/49 100 03/01/17 20:15 78 17 107/48 100 03/01/17 19:45 78 17 109/50 100 07/21/17 19:31 19 114/49 100 03/01/17 19:30 98.3 F 03/01/17 19:00 78 03/01/17 18:00 82 119/54 21 03/01/17 17:38 19 100 03/01/17 17:00 83 19 110/48 100 03/01/17 16:13 98.0 F 03/01/17 15:53 16 100 03/01/17 15:00 84 16 98/48 100 03/01/17 14:00 83 16 114/52 100 03/01/17 13:00 85 16 126/55 100 03/01/17 11:44 16 100 03/01/17 11:20 90 03/01/17 11:00 97.6 F 92 16 131/57 100 03/01/17 10:00 94 16 131/59 100 03/01/17 09:57 17 100 03/01/17 09:00 100 16 123/49 100 Intake and Output 03/01/17 03/02/17 03/02/17 23:59 07:59 15:59 Intake Total 602 / 602 511.3 / 511.3 Output Total 0 / 0 0 / 0 Balance 602 / 602 511.3 / 511.3 Intake: IV Fluids 602 / 602 511.3 / 511.3 Vasostrict 40 UNIT In 102 / 102 53.3 / 53.3 Dextrose 5% 100 ML @ 0.03 UNIT/MIN 4.59 mls/hr IV .[id number] CANDE Rx#: [id number] Levophed 8 MG In Dextrose 258 / 258 5% 250 ML @ 5 MCG/MIN 9. 67 mls/hr IVC CONT PRN Rx #:[id number] Azactam 500 MG In 100 / 100 100 / 100 Dextrose 5% 100 ML @ 200 mls/hr IVPB Q8H [facility] Rx#: [id number] Zyvox Premix 600mg/300mL 300 / 300 600 mg In 300 ml @ 150 mls/hr IVPB Q12HR [facility] Rx# :[id number] Flagyl Premix 500 MG/100 100 / 100 100 / 100 ML 500 mg In 100 ml @ 100 mls/hr IVPB Q8HR [facility] Rx# :[id number] Oral 0 / 0 Tube Feeding 0 / 0 0 / 0 Output: Urine 0 / 0 0 / 0 Other: Stool Size Large Stool Consistency soft Stool Color Brown Green Weight 87.165 kg Blood Glucose* 115 115 Patient Weight 03/02/17 23:59 Weight 87.165 kg - General Appearance Exam: Patient is nonresponsive. She is on the ventilator. She is on levo fed at 11 mics per minute. Lung sounds. Heart irregular rate and rhythm. Abdomen is benign. There is minimal lower extremity swelling. There is a tunnel dialysis catheter in the left chest. - Lab 03/02/17 08:10 03/02/17 08:10 Most recent lab results ABG pH 7.34 pH Units (7.32-7.45) 02/26/17 04:10 ABG pCO2 51 mmHg (35-45) H 02/26/17 04:10 ABG pO2 67 mmHg (85-104) L 02/26/17 04:10 ABG HCO3 27.5 mEQ/L (21-27) H 02/26/17 04:10 ABG O2 Saturation 92 % (95-98) L 02/26/17 04:10 Calcium 8.7 mg/dL (8.6-10.8) 03/02/17 08:10 Phosphorus 4.6 mg/dL (2.3-4.7) 03/02/17 08:10 Magnesium 1.2 mg/dL (1.6-2.6) L 03/02/17 08:10 - Stroke Is the patient on any antithrombotics?: Yes Contraindication Antithromb by Day Two: Not Indicated - Due to Bleeding Disorder or Risk of Bleeding (Coagulapathy with elevated INR) Consult Discharge Plan - Plan Referrals: Henrry Mccullough MD [Primary Care Provider] -
[2017-03-02] MEDS ORDERED: 0.9 % Sodium Chloride 250 ML IVC PRN (08:51)
[2017-03-02 09:00] LABS: Lymphocytes # 0.5 K/mcL (0.6-4.6); Monocytes # 2.3 K/mcL (0.0-1.3); Neutrophils # 43.6 K/mcL (1.6-8.9); Platelet Estimate Normal (Normal)
[2017-03-02 09:01] LABS: Anisocytosis 1+ (Not Present); Hypochromasia Present (Not Present); Microcytosis Present (Not Present); Poikilocytosis 1+ (Not Present)
[2017-03-02 09:02] LABS: Polychromasia 1+ (Not Present)
[2017-03-02] MEDS: Aspirin 81 MG TAB.CHEW PO SCH (09:46)
[2017-03-02] MEDS: Folic Acid 1 MG TABLET PO SCH (09:47)
[2017-03-02] MEDS: Chlorhexidine Rinse 15 ML MOUTHWASH MM SCH ×2 (09:47→20:45)
[2017-03-02] MEDS: Pantoprazole 40 MG VIAL IVPB SCH (09:47)
[2017-03-02] MEDS ORDERED: *HR* Heparin 10,000 UNIT/10 ML VIAL IV PRN (13:23)
[2017-03-02] MEDS ORDERED: 0.9 % Sodium Chloride 2,000 ML ONE (13:28)
[2017-03-02] MEDS: FentaNYL (PF) 1,000 MCG in 0.9 % Sodium Chloride 80 ML IVC SCH (20:46)
[2017-03-02] MEDS: EPINEPHrine 1 MG in D5% in Water 250 ML IVC SCH (23:50)
[2017-03-02] MEDS: Vasopressin 40 UNIT in D5% in Water 100 ML IV SCH ×2 (23:52→23:53)
[2017-03-03] MEDS: Insulin LISPRO 300 UNITS/3 ML VIAL SQ SCH ×6 (00:36→20:38)
[2017-03-03] MEDS: Aztreonam 500 MG in D5% in Water 100 ML IVPB SCH ×3 (03:11→17:03)
[2017-03-03 03:26] LABS: Basophils % 0.2 %
[2017-03-03 03:27] LABS: Basophils # 0.1 K/mcL (0.0-0.2); Hematocrit 29.9 % (35.3-44.9); Hemoglobin 8.9 g/dL (11.5-15.4); Immature Granulocytes % 1.7 % (0-4); Lymphocytes # 0.2 K/mcL (0.6-4.6); Lymphocytes % 0.6 %; Mean Corpuscular HGB Conc 29.8 g/dL (31.6-35.5); Mean Corpuscular Hemoglobin 23.4 pg (28.0-33.3); Mean Corpuscular Volume 78.5 fL (83.0-100.0); Mean Platelet Volume 9.8 fL (9.4-12.4); Monocytes # 1.7 K/mcL (0.0-1.3); Monocytes % 5.6 %; Neutrophils # 27.5 K/mcL (1.6-8.9); Nucleated Red Blood Cells 0.2 /100 WBC (0); Platelet Count 190 K/mcL (140-400); Red Blood Count 3.81 M/mcL (3.82-4.97); Red Cell Distribution Width 21.3 % (11.5-14.5); Segmented Neutrophils % 91.9 %
[2017-03-03 03:43] LABS: Albumin/Globulin Ratio 0.5 (1.1-2.2); Bilirubin,Direct 1.2 mg/dL (0.0-0.5); Bilirubin,Indirect 0.4 mg/dL (0.0-1.2); Bilirubin,Total 1.6 mg/dL (0.2-1.2); Calcium 8.7 mg/dL (8.6-10.8); Globulin 3.1 g/dL (2.4-3.5); Magnesium 1.4 mg/dL (1.6-2.6); Potassium 3.6 mEq/L (3.5-4.5); Total Protein 4.7 g/dL (6.0-8.3)
[2017-03-03 03:51] LABS: Albumin 1.6 g/dL (3.5-5.0)
[2017-03-03] MEDS: Lacri-Lube 3.5 GM TUBE BOTH EYES SCH ×6 (03:51→23:41)
[2017-03-03 03:58] LABS: INR 8.3; Prothrombin Time 95.8 Seconds (9.4-12.1)
[2017-03-03 04:20] LABS: Anisocytosis 1+ (Not Present); Hypochromasia Present (Not Present); Microcytosis Present (Not Present); Platelet Estimate Normal (Normal); Toxic Granulation Present (Not Present)
[2017-03-03 04:37] LABS: Fibrinogen 482 mg/dL (169-393)
[2017-03-03 04:39] LABS: D-Dimer 874 ng/mLFEU (0-500)
--- NOTE | 2017-03-03 08:20 | Pulmonology Progress Note ---
Date of Encounter: 03/03/17 Time of Encounter: 08:17 Assessment and Plan (1) Acute and chronic respiratory failure Current Visit: No Status: Acute Significant hypercapnia which is likely multifactorial in the setting of opioid use with poor clearance due to cirrhosis of the liver and end-stage renal disease. Hepatic encephalopathy can also be contributing given the patient's elevated ammonia. The patient also appears to have pulmonary edema in the setting of end-stage renal disease. Sedation has been completely discontinued for greater than 24 hours and there is still no response. Patient's need for vasopressor support has decreased. Patient is only on Levophed at this time and this is slowly been titrated off. Patient has evidence of liver failure decompensation with a rising INR. We will discontinue heparin. Patient given 5 mg of vitamin K overnight. No evidence of active bleeding. Urine culture showing gram-positive cocci however given this dialysis patient with minimal urine output patient is likely colonized. Sputum culture shows Kluyvera ascobata which is likely a contaminant but given the patient's clinical status and leukocytosis we have initiated aztreonam. Leukocytosis improving. Source remains unclear. Zyvox has been added. One of the blood culture bottles came back positive with gram-positive rods. May be contaminant , overweight final culture and sensitivity results. Patient's prognosis remains poor. Patient appears to have some clinical improvement based on her decreasing leukocytosis, decreasing need for pressors however she remains encephalopathic and is not responding. Continue current treatment and reassess goals of care with family tomorrow. 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 control service representative use Chronic kidney disease stage: on chronic dialysis Qualified Code(s): E11.22 - Type 2 diabetes mellitus with diabetic chronic kidney disease; N18.6 - End stage renal disease; 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 Patient remains intubated. She is on no sedation and will grimace to pain but there is no other response. No acute events overnight. Objective PUL Vital signs: Last Vital Signs Temp 99.2 F 03/03/17 03:39 Pulse 85 03/03/17 07:30 Resp 17 03/03/17 07:30 BP 116/67 03/03/17 07:30 Pulse Ox 96 03/03/17 07:30 General appearance: comatose ENT: oropharynx moist Effort: normal Auscultation: bilateral: clear Cardiovascular: irregular rhythm Gastrointestinal: absent bowel sounds, soft, non-tender, non-distended Extremities: no cyanosis, no clubbing, edema (trace) unable to assess due to mental status Ventilator Settings Ventilator Settings: Ventilator Settings, Last 8 Hours Ventilator Mode A/C Ventilator Mode A/C Ventilator Mode A/C Ventilator Mode A/C Ventilator Mode A/C Ventilator Mode A/C Ventilator Mode A/C Ventilator Mode A/C Ventilator Mode A/C Ventilator Mode A/C Ventilator Mode A/C Ventilator Tidal Volume 350 Setting Ventilator Tidal Volume 350 Setting Ventilator Tidal Volume 350 Setting Ventilator Tidal Volume 350 Setting Ventilator Tidal Volume 350 Setting Ventilator Tidal Volume 350 Setting Ventilator Tidal Volume 350 Setting Ventilator Tidal Volume 350 Setting Ventilator Tidal Volume 350 Setting Ventilator Tidal Volume 350 Setting Ventilator Tidal Volume 350 Setting Ventilator Respiratory Rate 16 Setting Ventilator Respiratory Rate 16 Setting Ventilator Respiratory Rate 16 Setting Ventilator Respiratory Rate 16 Setting Ventilator Respiratory Rate 16 Setting Ventilator Respiratory Rate 16 Setting Ventilator Respiratory Rate 16 Setting Ventilator Respiratory Rate 16 Setting Ventilator Respiratory Rate 16 Setting Ventilator Respiratory Rate 16 Setting Ventilator Respiratory Rate 16 Setting Actual Respiratory Rate 19 Actual Respiratory Rate 16 Actual Respiratory Rate 17 Actual Respiratory Rate 19 Actual Respiratory Rate 19 Actual Respiratory Rate 17 Actual Respiratory Rate 20 Actual Respiratory Rate 19 Actual Respiratory Rate 17 Actual Respiratory Rate 20 Actual Respiratory Rate 21 Positive End Expiratory 5 Pressure Positive End Expiratory 5 Pressure Positive End Expiratory 5 Pressure Positive End Expiratory 5 Pressure Positive End Expiratory 5 Pressure Positive End Expiratory 5 Pressure Positive End Expiratory 5 Pressure Positive End Expiratory 5 Pressure Positive End Expiratory 5 Pressure Positive End Expiratory 5 Pressure Positive End Expiratory 5 Pressure Peak Inspiratory Airway 20 Pressure Peak Inspiratory Airway 25 Pressure Peak Inspiratory Airway 19 Pressure Peak Inspiratory Airway 23 Pressure Peak Inspiratory Airway 21 Pressure Peak Inspiratory Airway 19 Pressure Peak Inspiratory Airway 28 Pressure Peak Inspiratory Airway 22 Pressure Peak Inspiratory Airway 20 Pressure Peak Inspiratory Airway 21 Pressure Peak Inspiratory Airway 17 Pressure Results - Laboratory Findings CBC and BMP: 03/03/17 03:15 03/03/17 03:15 ABG ABG pH 7.34 pH Units (7.32-7.45) 02/26/17 04:10 ABG pCO2 51 mmHg (35-45) H 02/26/17 04:10 ABG pO2 67 mmHg (85-104) L 02/26/17 04:10 ABG O2 Saturation 92 % (95-98) L 02/26/17 04:10 PT/INR, D-dimer PT 95.8 Seconds (9.4-12.1) H* D 03/03/17 03:39 D-Dimer 874 ng/mLFEU (0-500) H 03/03/17 04:18 Abnormal lab findings: Abnormal lab results WBC 29.9 K/mcL (4.3-11.1) H 03/03/17 03:15 RBC 3.81 M/mcL (3.82-4.97) L 03/03/17 03:15 Hgb 8.9 g/dL (11.5-15.4) L 03/03/17 03:15 Hct 29.9 % (35.3-44.9) L 03/03/17 03:15 MCV 78.5 fL (83.0-100.0) L 03/03/17 03:15 MCH 23.4 pg (28.0-33.3) L 03/03/17 03:15 MCHC 29.8 g/dL (31.6-35.5) L 03/03/17 03:15 RDW 21.3 % (11.5-14.5) H 03/03/17 03:15 Neutrophils # 27.5 K/mcL (1.6-8.9) H 03/03/17 03:15 Lymphocytes # 0.2 K/mcL (0.6-4.6) L 03/03/17 03:15 Monocytes # 1.7 K/mcL (0.0-1.3) H 03/03/17 03:15 Nucleated RBCs/100 WBC 0.2 /100 WBC (0) H 03/03/17 03:15 Toxic Granulation Present (Not Present) A 03/03/17 03:15 Immature Plt Fraction 1.0 % (1.1-6.1) L 02/25/17 07:11 Polychromasia 1+ (Not Present) A 03/02/17 08:10 Hypochromasia Present (Not Present) A 03/03/17 03:15 Poikilocytosis 1+ (Not Present) A 03/02/17 08:10 Basophilic Stippling 1+ (Not Present) A 02/25/17 07:11 Anisocytosis 1+ (Not Present) A 03/03/17 03:15 Microcytosis Present (Not Present) A 03/03/17 03:15 Acanthocytes (Spur) 1+ (Not Present) A 02/28/17 03:17 PT 95.8 Seconds (9.4-12.1) H* D 03/03/17 03:39 INR 8.3 H* D 03/03/17 03:39 APTT 110.3 Seconds (26.0-36.0) H* 03/01/17 04:10 Fibrinogen 482 mg/dL (169-393) H 03/03/17 04:18 D-Dimer 874 ng/mLFEU (0-500) H 03/03/17 04:18 Heparin Anti-Xa, Unfract 0.01 IU/mL (0.30-0.70) L 03/01/17 04:10 ABG pCO2 51 mmHg (35-45) H 02/26/17 04:10 ABG pO2 67 mmHg (85-104) L 02/26/17 04:10 ABG HCO3 27.5 mEQ/L (21-27) H 02/26/17 04:10 ABG Total CO2 29.1 mEq/L (20-26) H 02/26/17 04:10 ABG O2 Saturation 92 % (95-98) L 02/26/17 04:10 VBG pH 7.08 pH Units (7.32-7.42) L* 02/25/17 05:40 VBG pCO2 92 mmHg (41-51) H 02/25/17 05:40 VBG pO2 67 mmHg (25-40) H 02/25/17 05:40 VBG HCO3 27.3 mEq/L (21-27) H 02/25/17 05:40 Sodium 126 mEq/L (136-145) L D 03/03/17 03:15 Chloride 91 mEq/L (98-109) L 03/03/17 03:15 BUN 30 mg/dL (7-20) H D 03/03/17 03:15 Creatinine 2.84 mg/dL (0.57-1.11) H 03/03/17 03:15 Est GFR ( Amer) 20 (> 60) L 03/03/17 03:15 Est GFR (Non-Af Amer) 16 (> 60) L 03/03/17 03:15 Glucose 151 mg/dL (70-99) H 03/03/17 03:15 POC Glucose 128 (58-89) H 03/02/17 23:04 Calculated Osmolality 271 (280-300) L 03/03/17 03:15 Ionized Calcium 1.12 mmol/L (1.15-1.35) L 03/01/17 04:10 Magnesium 1.4 mg/dL (1.6-2.6) L 03/03/17 03:15 Total Bilirubin 1.6 mg/dL (0.2-1.2) H 03/03/17 03:15 Direct Bilirubin 1.2 mg/dL (0.0-0.5) H 03/03/17 03:15 Alkaline Phosphatase 297 Units/L (38-126) H 03/03/17 03:15 B-Natriuretic Peptide 2203 pg/mL (0-100) H 02/25/17 07:11 Serum Total Protein 4.7 g/dL (6.0-8.3) L 03/03/17 03:15 Albumin 1.6 g/dL (3.5-5.0) L 03/03/17 03:15 Albumin/Globulin Ratio 0.5 (1.1-2.2) L 03/03/17 03:15 Ur Specimen Adequacy See below A 02/25/17 06:28 Urine Clarity Turbid (Clear) A 02/25/17 06:28 Urine Protein >=300 mg/dL (Neg-Trace) H 02/25/17 06:28 Urine Ketones Trace mg/dL (Negative) H 02/25/17 06:28 Urine Blood Large (Negative) H 02/25/17 06:28 Ur Leukocyte Esterase Large (Negative) H 02/25/17 06:28 Ur Culture Indicated? YES (NO) A 02/25/17 06:28 Pleural Appearance Hazy (Clear) A 02/26/17 15:30 Pleural RBC 0.020 M/mcL (0.000-0.002) H 02/26/17 15:30 - Microbiology Findings Microbiology Findings: Microbiology, Last 48 Hours 02/26/17 12:41 Blood Culture - Preliminary Port System Gram Positive Rods 02/26/17 12:41 Blood Culture - Preliminary Port System No growth. 02/26/17 15:30 Body Fluid Culture - Final Pleural Fluid - Clinical Findings Intake & Output: Intake & Output 03/02/17 03/03/17 03/03/17 23:59 07:59 15:59 Intake Total 758 / 758 497.9 / 497.9 Output Total 1600 / 1600 0 / 0 Balance -842 / -842 497.9 / 497.9 Weight 87.1 kg - Stroke Is the patient on any antithrombotics?: No Are there any contradictions to antithrombotics?: Yes Contraindication Antithromb by Day Two: Not Indicated - Due to Bleeding Disorder or Risk of Bleeding (Coagulapathy with elevated INR) Consult Discharge Plan - Plan Referrals: Henrry Mccullough MD [Primary Care Provider] -
--- NOTE | 2017-03-03 08:26 | Nephrology Progress Note ---
Date of Encounter: 03/03/17 Time of Encounter: 08:15 - Assessment and Plan (1) End-stage renal disease Current Visit: No Status: Acute Acute on chronic respiratory failure, encephalopathy, cirrhosis. most likely HD tomorrow if stable. Subjective Principal diagnosis: Encephalopathy Interval history: Intubated, sedated, on one pressor. FIO2 50, peep 5. Objective - Vital Signs Vital signs: Vital Signs Temp Pulse Resp BP Pulse Ox 03/03/17 07:30 85 17 116/67 96 03/03/17 06:08 16 91/50 99 03/03/17 06:00 80 17 91/50 98 03/03/17 05:30 84 19 96/44 97 03/03/17 04:05 19 104/50 99 03/03/17 04:00 93 17 104/50 99 03/03/17 03:39 99.2 F 03/03/17 03:30 87 20 110/52 98 03/03/17 02:28 18 96/47 99 03/03/17 02:00 90 17 96/47 99 03/03/17 01:24 98 20 102/50 100 03/03/17 00:30 97 21 111/61 91 03/02/17 23:53 23 116/53 91 03/02/17 23:00 101.5 F H 99 21 115/60 90 03/02/17 22:00 101 18 114/50 91 03/02/17 21:54 26 110/49 93 03/02/17 21:30 105 21 110/49 94 03/02/17 20:49 101 20 106/46 94 03/02/17 19:50 99.3 F 03/02/17 19:49 20 98 03/02/17 19:19 106 17 104/50 93 03/02/17 18:30 109 20 112/47 96 03/02/17 17:55 99.7 F H 17 112/46 97 03/02/17 17:45 104/46 03/02/17 17:30 104 19 101/52 95 03/02/17 17:15 101/46 03/02/17 17:00 104/42 03/02/17 16:45 103/45 03/02/17 16:30 107 20 106/47 96 03/02/17 16:15 104/50 03/02/17 16:00 108/51 07/22/17 15:45 110/43 03/02/17 15:30 89 18 109/47 95 03/02/17 15:19 19 95 03/02/17 15:15 104/51 03/02/17 15:00 92 101/43 03/02/17 14:45 99.7 F H 14 101/45 03/02/17 14:30 93 20 103/47 95 03/02/17 13:30 93 20 103/48 96 03/02/17 12:30 89 20 105/45 95 03/02/17 11:30 90 18 106/53 97 03/02/17 11:17 18 100 03/02/17 10:30 93 19 105/49 99 03/02/17 09:30 95 18 109/54 99 03/02/17 08:30 92 20 105/50 97 Intake and Output 03/02/17 03/03/17 03/03/17 23:59 07:59 15:59 Intake Total 758 / 758 497.9 / 497.9 Output Total 1600 / 1600 0 / 0 Balance -842 / -842 497.9 / 497.9 Intake: IV Fluids 758 / 758 497.9 / 497.9 Levophed 8 MG In Dextrose 258 / 258 247.4 / 247.4 5% 250 ML @ 5 MCG/MIN 9. 67 mls/hr IVC CONT PRN Rx #:[id number] Azactam 500 MG In 100 / 100 100 / 100 Dextrose 5% 100 ML @ 200 mls/hr IVPB Q8H CANDE Rx#: [id number] Zyvox Premix 600mg/300mL 300 / 300 600 mg In 300 ml @ 150 mls/hr IVPB Q12HR CANDE Rx# :[id number] Flagyl Premix 500 MG/100 100 / 100 100 / 100 ML 500 mg In 100 ml @ 100 mls/hr IVPB Q8HR CANDE Rx# :[id number] AquaMephyton 5 MG In 0.9 50.5 / 50.5 % Sodium Chloride 50 ML @ 100 mls/hr IVPB ONCE ONE Rx#:[id number] Tube Feeding 0 / 0 Output: Urine 0 / 0 0 / 0 Total Dialysis (HD) 1600 / 1600 Output Other: Stool Size Small Stool Consistency loose soft Stool Color Brown Weight 87.1 kg Blood Glucose* 128 156 Hemodialysis Net Fluid 1000 Removed (mL) Patient Weight 03/03/17 23:59 Weight 87.1 kg - General Appearance General appearance: Present: well-developed, well-nourished, appears started age , obese EENT: Present: mucous membranes moist Neck: Present: no JVD Respiratory: Present: course breath sounds Cardiology: Present: no edema, irregular rhythm Additional Comments: feet mottled Gastrointestinal: Present: hypoactive bowel sounds Integumentary: Present: warm and dry - Lab 03/03/17 03:15 03/03/17 03:15 Most recent lab results ABG pH 7.34 pH Units (7.32-7.45) 02/26/17 04:10 ABG pCO2 51 mmHg (35-45) H 02/26/17 04:10 ABG pO2 67 mmHg (85-104) L 02/26/17 04:10 ABG HCO3 27.5 mEQ/L (21-27) H 02/26/17 04:10 ABG O2 Saturation 92 % (95-98) L 02/26/17 04:10 Calcium 8.7 mg/dL (8.6-10.8) 03/03/17 03:15 Phosphorus 4.6 mg/dL (2.3-4.7) 03/02/17 08:10 Magnesium 1.4 mg/dL (1.6-2.6) L 03/03/17 03:15 - Stroke Is the patient on any antithrombotics?: No Contraindication Antithromb by Day Two: Not Indicated - Due to Bleeding Disorder or Risk of Bleeding (Coagulapathy with elevated INR) Consult Discharge Plan - Plan Referrals: Henrry Mccullough MD [Primary Care Provider] -
[2017-03-03] MEDS: Chlorhexidine Rinse 15 ML MOUTHWASH MM SCH ×2 (08:52→20:11)
[2017-03-03] MEDS: Folic Acid 1 MG TABLET PO SCH (08:52)
[2017-03-03] MEDS: Pantoprazole 40 MG VIAL IVPB SCH (08:52)
[2017-03-03] MEDS: Aspirin 81 MG TAB.CHEW PO SCH (08:53)
[2017-03-03] MEDS: MetroNIDAZOLE 500 MG/100 ML 500 MG/100 ML BAG IVPB SCH ×3 (08:54→23:42)
[2017-03-03] MEDS: Norepinephrine 8 MG in D5% in Water 250 ML IVC PRN (08:54)
[2017-03-03] MEDS: Vasopressin 40 UNIT in D5% in Water 100 ML IV SCH (20:12)
[2017-03-03] MEDS: FentaNYL (PF) 1,000 MCG in 0.9 % Sodium Chloride 80 ML IVC SCH (20:12)
[2017-03-03] MEDS: Dexmedetomidine HCl 400 MCG/100 ML MLS IVC SCH (23:26)
[2017-03-03] MEDS: EPINEPHrine 1 MG in D5% in Water 250 ML IVC SCH (23:26)
[2017-03-04] MEDS: Insulin LISPRO 300 UNITS/3 ML VIAL SQ SCH ×7 (01:36→23:53)
[2017-03-04] MEDS: Aztreonam 500 MG in D5% in Water 100 ML IVPB SCH ×3 (03:14→19:00)
[2017-03-04] MEDS: Lacri-Lube 3.5 GM TUBE BOTH EYES SCH ×6 (04:12→23:53)
[2017-03-04 05:03] LABS: ABG Base Excess -3.2 mEq/L (-2.0 to 3.0); ABG HCO3 24.6 mEQ/L (21-27); ABG Oxygen Saturation 88 % (95-98); ABG PCO2 56 mmHg (35-45); ABG PH 7.25 pH Units (7.32-7.45); ABG PO2 63 mmHg (85-104); ABG TCO2 26.3 mEq/L (20-26)
[2017-03-04 05:04] LABS: Blood Gas FiO2 50 %
[2017-03-04 05:07] LABS: Hemoglobin 8.9 g/dL (11.5-15.4); Red Cell Distribution Width 21.1 % (11.5-14.5)
[2017-03-04 05:08] LABS: Hematocrit 30.5 % (35.3-44.9); Mean Corpuscular HGB Conc 29.2 g/dL (31.6-35.5); Mean Corpuscular Volume 78.8 fL (83.0-100.0); Mean Platelet Volume 10.1 fL (9.4-12.4); Nucleated Red Blood Cells 0.3 /100 WBC (0); Platelet Count 173 K/mcL (140-400); Red Blood Count 3.87 M/mcL (3.82-4.97)
[2017-03-04 05:34] LABS: INR 1.2; Prothrombin Time 13.1 Seconds (9.4-12.1)
[2017-03-04 05:36] LABS: Albumin 1.7 g/dL (3.5-5.0); Albumin/Globulin Ratio 0.5 (1.1-2.2); Bilirubin,Direct 1.6 mg/dL (0.0-0.5); Bilirubin,Indirect 0.3 mg/dL (0.0-1.2); Bilirubin,Total 1.9 mg/dL (0.2-1.2); Calcium 9.2 mg/dL (8.6-10.8); Globulin 3.3 g/dL (2.4-3.5); Magnesium 1.4 mg/dL (1.6-2.6); Potassium 3.9 mEq/L (3.5-4.5)
[2017-03-04 05:37] LABS: Lymphocytes # 0.7 K/mcL (0.6-4.6); Monocytes # 2.8 K/mcL (0.0-1.3); Neutrophils # 31.3 K/mcL (1.6-8.9); Platelet Estimate Normal (Normal)
--- NOTE | 2017-03-04 07:48 | Pulmonology Progress Note ---
<Chester Sosa - Last Filed: 03/04/17 11:16> Date of Encounter: 03/04/17 Time of Encounter: 07:48 Assessment and Plan (1) Acute and chronic respiratory failure Current Visit: No Status: Acute Neuropsych: She remains encephalopathic. She has been off all sedation for approximately 48 hours and she will only withdrawal to pain in her feet. Does not grimace to sternal rub. Likely multifactorial in the setting of septic shock, chronic renal failure, and cirrhosis. We will continue to hold sedating medications and continue monitor patient's mental status. Pulm: Patient showed a mild mixed acidosis with borderline oxygenation. Will increase respiratory rate to 20 and increase PEEP to 10 for alveolar recruitment. Recheck ABG. Cards: History of underlying atrial fibrillation. Currently rate controlled. Patient was on Coumadin on presentation, this was switched to heparin as the patient's critical illness progressed. Over the weekend her INR became acutely elevated as high as 8.3. Patient received 5 mg of vitamin K. INR is 1.2 today. We will proceed with mechanical DVT prophylaxis only at this time. FEN-GI: Tube feeds have been held due to high residuals and absent bowel sounds. There continues to be very minimal bowel sounds. We will check residuals and resume if able. Continue Protonix for stress ulcer prophylaxis. Renal: End-stage renal disease with regular scheduled dialysis Saturday, Saturday , Saturday. Patient's Saturday session was postponed to Saturday last week due to critical illness and instability. Plan for dialysis today with net 0 fluid removal. ID: Patient remains in septic shock however the source remains elusive at this time. We will redraw blood cultures, obtain echocardiogram, [place] CT. Infectious disease has been consulted. Heme/Onc: Hemoglobin is stable at 8.9. No evidence of active bleeding despite acutely elevated INR weekend. Continue with mechanical DVT prophylaxis at this time. Endo: Blood sugars under good control, continue sliding scale insulin. Integ/MSK: Patient has a stage II decubitus ulcer. Does not appear to be acutely infected. Continue skin care per ICU protocol. Patient has cyanosis of the middle 3 toes on the left and the second and fourth toe on the right. Possible extreme vasoconstriction setting of multiple pressor use or thromboembolic disease indicative of blue toe syndrome is also a concern. If the patient's family continues to want aggressive measures we will obtain arterial studies and the patient may benefit from a vascular surgery consult. CODE: DNR CCA. Patient continues to have initially a poor prognosis. We will reassess with family to determine long-term goals of care. Qualifiers: Respiratory failure complication: hypercapnia Qualified Code(s): J96.22 - Acute and chronic respiratory failure with hypercapnia (2) Septic shock Current Visit: Yes Status: Acute (3) Acute encephalopathy Current Visit: No Status: Acute (4) Cirrhosis Current Visit: No Status: Chronic Qualifiers: Hepatic cirrhosis type: other cirrhosis Qualified Code(s): K74.69 - Other cirrhosis of liver (5) DM (diabetes mellitus), type 2 Current Visit: No Status: Chronic 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 Chronic kidney disease stage: on chronic dialysis Qualified Code(s): E11.22 - Type 2 diabetes mellitus with diabetic chronic kidney disease; N18.6 - End stage renal disease; Z79.4 - jail (current) use of insulin; Z99.2 - Dependence on renal dialysis (6) Atrial fibrillation Current Visit: No Status: Chronic Qualifiers: Atrial fibrillation type: chronic Qualified Code(s): I48.2 - Chronic atrial fibrillation (7) Pressure ulcer Current Visit: Yes Status: Acute On the coccyx, midline, present on admission Qualifiers: Pressure ulcer location: other site Pressure ulcer stage: stage 2 Qualified Code(s): L89.892 - Pressure ulcer of other site, stage 2 Subjective Principal diagnosis: Encephalopathy Interval history: Patient seen and examined at bedside. Patient remains intubated. She is on no sedation and there is no response to painful stimuli. No acute events overnight. Objective PUL Vital signs: Last Vital Signs Temp 98.0 F 03/04/17 03:43 Pulse 95 03/04/17 06:00 Resp 20 03/04/17 06:34 BP 102/50 03/04/17 06:34 Pulse Ox 91 03/04/17 06:34 General appearance: comatose ENT: oropharynx moist Effort: normal Auscultation: bilateral: wheezes (rare, scattered) Cardiovascular: irregular rhythm Gastrointestinal: absent bowel sounds, soft, non-tender, non-distended Extremities: no clubbing, edema (trace), other (The 2nd,3rd,4th toe on the left are cyanotic, the 2nd and 4th toe on the right is cyanotic) other (pupils slightly dilated and sluggish to light, patient will withdrawal feet on palpation but does not respond to other painful stimuli) Ventilator Settings Ventilator Settings: Ventilator Settings, Last 8 Hours Ventilator Mode CPAP Ventilator Mode A/C Ventilator Mode A/C Ventilator Mode A/C Ventilator Mode A/C Ventilator Mode A/C Ventilator Mode A/C Ventilator Mode A/C Ventilator Mode A/C Ventilator Mode A/C Ventilator Mode A/C Ventilator Mode A/C Ventilator Mode A/C Ventilator Tidal Volume 350 Setting Ventilator Tidal Volume 350 Setting Ventilator Tidal Volume 350 Setting Ventilator Tidal Volume 350 Setting Ventilator Tidal Volume 350 Setting Ventilator Tidal Volume 350 Setting Ventilator Tidal Volume 350 Setting Ventilator Tidal Volume 350 Setting Ventilator Tidal Volume 350 Setting Ventilator Tidal Volume 350 Setting Ventilator Tidal Volume 350 Setting Ventilator Tidal Volume 350 Setting Ventilator Tidal Volume 350 Setting Ventilator Respiratory Rate 16 Setting Ventilator Respiratory Rate 16 Setting Ventilator Respiratory Rate 16 Setting Ventilator Respiratory Rate 16 Setting Ventilator Respiratory Rate 16 Setting Ventilator Respiratory Rate 16 Setting Ventilator Respiratory Rate 16 Setting Ventilator Respiratory Rate 16 Setting Ventilator Respiratory Rate 16 Setting Ventilator Respiratory Rate 16 Setting Ventilator Respiratory Rate 16 Setting Ventilator Respiratory Rate 16 Setting Ventilator Respiratory Rate 16 Setting Actual Respiratory Rate 20 Actual Respiratory Rate 19 Actual Respiratory Rate 19 Actual Respiratory Rate 19 Actual Respiratory Rate 21 Actual Respiratory Rate 21 Actual Respiratory Rate 20 Actual Respiratory Rate 19 Actual Respiratory Rate 21 Actual Respiratory Rate 18 Actual Respiratory Rate 21 Actual Respiratory Rate 21 Positive End Expiratory 5 Pressure Positive End Expiratory 5 Pressure Positive End Expiratory 5 Pressure Positive End Expiratory 5 Pressure Positive End Expiratory 5 Pressure Positive End Expiratory 5 Pressure Positive End Expiratory 5 Pressure Positive End Expiratory 5 Pressure Positive End Expiratory 5 Pressure Positive End Expiratory 5 Pressure Positive End Expiratory 5 Pressure Positive End Expiratory 5 Pressure Positive End Expiratory 5 Pressure Peak Inspiratory Airway 17 Pressure Peak Inspiratory Airway 28 Pressure Peak Inspiratory Airway 16 Pressure Peak Inspiratory Airway 15 Pressure Peak Inspiratory Airway 17 Pressure Peak Inspiratory Airway 15 Pressure Peak Inspiratory Airway 33 Pressure Peak Inspiratory Airway 32 Pressure Peak Inspiratory Airway 21 Pressure Peak Inspiratory Airway 16 Pressure Peak Inspiratory Airway 14 Pressure Peak Inspiratory Airway 16 Pressure Results - Laboratory Findings CBC and BMP: 03/04/17 04:54 03/04/17 04:54 ABG ABG pH 7.25 pH Units (7.32-7.45) L 03/04/17 04:50 ABG pCO2 56 mmHg (35-45) H 03/04/17 04:50 ABG pO2 63 mmHg (85-104) L 03/04/17 04:50 ABG O2 Saturation 88 % (95-98) L 03/04/17 04:50 PT/INR, D-dimer PT 13.1 Seconds (9.4-12.1) H D 03/04/17 04:54 D-Dimer 874 ng/mLFEU (0-500) H 03/03/17 04:18 Abnormal lab findings: Abnormal lab results WBC 34.8 K/mcL (4.3-11.1) H* 03/04/17 04:54 Hgb 8.9 g/dL (11.5-15.4) L 03/04/17 04:54 Hct 30.5 % (35.3-44.9) L 03/04/17 04:54 MCV 78.8 fL (83.0-100.0) L 03/04/17 04:54 MCH 23.0 pg (28.0-33.3) L 03/04/17 04:54 MCHC 29.2 g/dL (31.6-35.5) L 03/04/17 04:54 RDW 21.1 % (11.5-14.5) H 03/04/17 04:54 Band Neutrophils % 28.0 % (0-4) H 03/04/17 04:54 Neutrophils # 31.3 K/mcL (1.6-8.9) H 03/04/17 04:54 Monocytes # 2.8 K/mcL (0.0-1.3) H 03/04/17 04:54 Nucleated RBCs/100 WBC 0.3 /100 WBC (0) H 03/04/17 04:54 Toxic Granulation Present (Not Present) A 03/03/17 03:15 Immature Plt Fraction 1.0 % (1.1-6.1) L 02/25/17 07:11 Polychromasia 1+ (Not Present) A 03/02/17 08:10 Hypochromasia Present (Not Present) A 03/03/17 03:15 Poikilocytosis 1+ (Not Present) A 03/02/17 08:10 Basophilic Stippling 1+ (Not Present) A 02/25/17 07:11 Anisocytosis 1+ (Not Present) A 03/03/17 03:15 Microcytosis Present (Not Present) A 03/03/17 03:15 Acanthocytes (Spur) 1+ (Not Present) A 02/28/17 03:17 PT 13.1 Seconds (9.4-12.1) H D 03/04/17 04:54 APTT 110.3 Seconds (26.0-36.0) H* 03/01/17 04:10 Fibrinogen 482 mg/dL (169-393) H 03/03/17 04:18 D-Dimer 874 ng/mLFEU (0-500) H 03/03/17 04:18 Heparin Anti-Xa, Unfract 0.01 IU/mL (0.30-0.70) L 03/01/17 04:10 ABG pH 7.25 pH Units (7.32-7.45) L 03/04/17 04:50 ABG pCO2 56 mmHg (35-45) H 03/04/17 04:50 ABG pO2 63 mmHg (85-104) L 03/04/17 04:50 ABG Total CO2 26.3 mEq/L (20-26) H 03/04/17 04:50 ABG O2 Saturation 88 % (95-98) L 03/04/17 04:50 ABG Base Excess -3.2 mEq/L (-2.0 to 3.0) L 03/04/17 04:50 VBG pH 7.08 pH Units (7.32-7.42) L* 02/25/17 05:40 VBG pCO2 92 mmHg (41-51) H 02/25/17 05:40 VBG pO2 67 mmHg (25-40) H 02/25/17 05:40 VBG HCO3 27.3 mEq/L (21-27) H 02/25/17 05:40 Sodium 123 mEq/L (136-145) L 03/04/17 04:54 Chloride 89 mEq/L (98-109) L 03/04/17 04:54 BUN 45 mg/dL (7-20) H D 03/04/17 04:54 Creatinine 3.39 mg/dL (0.57-1.11) H 03/04/17 04:54 Est GFR ( Amer) 16 (> 60) L 03/04/17 04:54 Est GFR (Non-Af Amer) 13 (> 60) L 03/04/17 04:54 Glucose 145 mg/dL (70-99) H 03/04/17 04:54 POC Glucose 179 (58-89) H 03/04/17 07:32 Calculated Osmolality 270 (280-300) L 03/04/17 04:54 Ionized Calcium 1.12 mmol/L (1.15-1.35) L 03/01/17 04:10 Magnesium 1.4 mg/dL (1.6-2.6) L 03/04/17 04:54 Total Bilirubin 1.9 mg/dL (0.2-1.2) H 03/04/17 04:54 Direct Bilirubin 1.6 mg/dL (0.0-0.5) H 03/04/17 04:54 Alkaline Phosphatase 296 Units/L (38-126) H 03/04/17 04:54 B-Natriuretic Peptide 2203 pg/mL (0-100) H 02/25/17 07:11 Serum Total Protein 5.0 g/dL (6.0-8.3) L 03/04/17 04:54 Albumin 1.7 g/dL (3.5-5.0) L 03/04/17 04:54 Albumin/Globulin Ratio 0.5 (1.1-2.2) L 03/04/17 04:54 Ur Specimen Adequacy See below A 02/25/17 06:28 Urine Clarity Turbid (Clear) A 02/25/17 06:28 Urine Protein >=300 mg/dL (Neg-Trace) H 02/25/17 06:28 Urine Ketones Trace mg/dL (Negative) H 02/25/17 06:28 Urine Blood Large (Negative) H 02/25/17 06:28 Ur Leukocyte Esterase Large (Negative) H 02/25/17 06:28 Ur Culture Indicated? YES (NO) A 02/25/17 06:28 Pleural Appearance Hazy (Clear) A 02/26/17 15:30 Pleural RBC 0.020 M/mcL (0.000-0.002) H 02/26/17 15:30 - Microbiology Findings Microbiology Findings: Microbiology, Last 48 Hours 02/26/17 12:41 Blood Culture - Final Port System No growth. 02/26/17 10:27 Blood Culture - Final Peripheral Venipuncture No growth. 02/26/17 10:20 Blood Culture - Final Peripheral Venipuncture No growth. 02/26/17 12:41 Blood Culture - Preliminary Port System Gram Positive Rods 02/26/17 15:30 Body Fluid Culture - Final Pleural Fluid - Clinical Findings Intake & Output: Intake & Output 03/03/17 03/03/17 03/04/17 15:59 23:59 07:59 Intake Total 310.6 / 310.6 700 / 700 207.4 / 207.4 Output Total 150 / 150 100 / 100 100 / 100 Balance 160.6 / 160.6 600 / 600 107.4 / 107.4 Weight 86.9 kg - Stroke Is the patient on any antithrombotics?: No Are there any contradictions to antithrombotics?: Yes Contraindication Antithromb by Day Two: Not Indicated - Due to Bleeding Disorder or Risk of Bleeding (Coagulapathy with elevated INR) Consult Discharge Plan - Plan Referrals: Henrry Mccullough MD [Primary Care Provider] - <Chadwick Rojsa - Last Filed: 03/04/17 14:05> Date of Encounter: 03/04/17 Objective PUL Vital signs: Last Vital Signs Temp 99.0 F 03/04/17 07:30 Pulse 95 03/04/17 06:00 Resp 20 03/04/17 06:34 BP 102/50 03/04/17 06:34 Pulse Ox 91 03/04/17 06:34 Ventilator Settings Ventilator Settings: Ventilator Settings, Last 8 Hours Ventilator Mode CPAP Ventilator Mode A/C Ventilator Mode A/C Ventilator Mode A/C Ventilator Mode A/C Ventilator Mode A/C Ventilator Mode A/C Ventilator Mode A/C Ventilator Mode A/C Ventilator Mode A/C Ventilator Mode A/C Ventilator Tidal Volume 350 Setting Ventilator Tidal Volume 350 Setting Ventilator Tidal Volume 350 Setting Ventilator Tidal Volume 350 Setting Ventilator Tidal Volume 350 Setting Ventilator Tidal Volume 350 Setting Ventilator Tidal Volume 350 Setting Ventilator Tidal Volume 350 Setting Ventilator Tidal Volume 350 Setting Ventilator Tidal Volume 350 Setting Ventilator Tidal Volume 350 Setting Ventilator Respiratory Rate 16 Setting Ventilator Respiratory Rate 16 Setting Ventilator Respiratory Rate 16 Setting Ventilator Respiratory Rate 16 Setting Ventilator Respiratory Rate 16 Setting Ventilator Respiratory Rate 16 Setting Ventilator Respiratory Rate 16 Setting Ventilator Respiratory Rate 16 Setting Ventilator Respiratory Rate 16 Setting Ventilator Respiratory Rate 16 Setting Ventilator Respiratory Rate 16 Setting Actual Respiratory Rate 20 Actual Respiratory Rate 19 Actual Respiratory Rate 19 Actual Respiratory Rate 19 Actual Respiratory Rate 21 Actual Respiratory Rate 21 Actual Respiratory Rate 20 Actual Respiratory Rate 19 Actual Respiratory Rate 21 Actual Respiratory Rate 18 Positive End Expiratory 5 Pressure Positive End Expiratory 5 Pressure Positive End Expiratory 5 Pressure Positive End Expiratory 5 Pressure Positive End Expiratory 5 Pressure Positive End Expiratory 5 Pressure Positive End Expiratory 5 Pressure Positive End Expiratory 5 Pressure Positive End Expiratory 5 Pressure Positive End Expiratory 5 Pressure Positive End Expiratory 5 Pressure Peak Inspiratory Airway 17 Pressure Peak Inspiratory Airway 28 Pressure Peak Inspiratory Airway 16 Pressure Peak Inspiratory Airway 15 Pressure Peak Inspiratory Airway 17 Pressure Peak Inspiratory Airway 15 Pressure Peak Inspiratory Airway 33 Pressure Peak Inspiratory Airway 32 Pressure Peak Inspiratory Airway 21 Pressure Peak Inspiratory Airway 16 Pressure Results - Laboratory Findings CBC and BMP: 03/04/17 04:54 03/04/17 04:54 ABG ABG pH 7.25 pH Units (7.32-7.45) L 03/04/17 04:50 ABG pCO2 56 mmHg (35-45) H 03/04/17 04:50 ABG pO2 63 mmHg (85-104) L 03/04/17 04:50 ABG O2 Saturation 88 % (95-98) L 03/04/17 04:50 PT/INR, D-dimer PT 13.1 Seconds (9.4-12.1) H D 03/04/17 04:54 D-Dimer 874 ng/mLFEU (0-500) H 03/03/17 04:18 Abnormal lab findings: Abnormal lab results WBC 34.8 K/mcL (4.3-11.1) H* 03/04/17 04:54 Hgb 8.9 g/dL (11.5-15.4) L 03/04/17 04:54 Hct 30.5 % (35.3-44.9) L 03/04/17 04:54 MCV 78.8 fL (83.0-100.0) L 03/04/17 04:54 MCH 23.0 pg (28.0-33.3) L 03/04/17 04:54 MCHC 29.2 g/dL (31.6-35.5) L 03/04/17 04:54 RDW 21.1 % (11.5-14.5) H 03/04/17 04:54 Band Neutrophils % 28.0 % (0-4) H 03/04/17 04:54 Neutrophils # 31.3 K/mcL (1.6-8.9) H 03/04/17 04:54 Monocytes # 2.8 K/mcL (0.0-1.3) H 03/04/17 04:54 Nucleated RBCs/100 WBC 0.3 /100 WBC (0) H 03/04/17 04:54 Toxic Granulation Present (Not Present) A 03/03/17 03:15 Immature Plt Fraction 1.0 % (1.1-6.1) L 02/25/17 07:11 Polychromasia 1+ (Not Present) A 03/02/17 08:10 Hypochromasia Present (Not Present) A 03/03/17 03:15 Poikilocytosis 1+ (Not Present) A 03/02/17 08:10 Basophilic Stippling 1+ (Not Present) A 02/25/17 07:11 Anisocytosis 1+ (Not Present) A 03/03/17 03:15 Microcytosis Present (Not Present) A 03/03/17 03:15 Acanthocytes (Spur) 1+ (Not Present) A 02/28/17 03:17 PT 13.1 Seconds (9.4-12.1) H D 03/04/17 04:54 APTT 110.3 Seconds (26.0-36.0) H* 03/01/17 04:10 Fibrinogen 482 mg/dL (169-393) H 03/03/17 04:18 D-Dimer 874 ng/mLFEU (0-500) H 03/03/17 04:18 Heparin Anti-Xa, Unfract 0.01 IU/mL (0.30-0.70) L 03/01/17 04:10 ABG pH 7.25 pH Units (7.32-7.45) L 03/04/17 04:50 ABG pCO2 56 mmHg (35-45) H 03/04/17 04:50 ABG pO2 63 mmHg (85-104) L 03/04/17 04:50 ABG Total CO2 26.3 mEq/L (20-26) H 03/04/17 04:50 ABG O2 Saturation 88 % (95-98) L 03/04/17 04:50 ABG Base Excess -3.2 mEq/L (-2.0 to 3.0) L 03/04/17 04:50 VBG pH 7.08 pH Units (7.32-7.42) L* 02/25/17 05:40 VBG pCO2 92 mmHg (41-51) H 02/25/17 05:40 VBG pO2 67 mmHg (25-40) H 02/25/17 05:40 VBG HCO3 27.3 mEq/L (21-27) H 02/25/17 05:40 Sodium 123 mEq/L (136-145) L 03/04/17 04:54 Chloride 89 mEq/L (98-109) L 03/04/17 04:54 BUN 45 mg/dL (7-20) H D 03/04/17 04:54 Creatinine 3.39 mg/dL (0.57-1.11) H 03/04/17 04:54 Est GFR ( Amer) 16 (> 60) L 03/04/17 04:54 Est GFR (Non-Af Amer) 13 (> 60) L 03/04/17 04:54 Glucose 145 mg/dL (70-99) H 03/04/17 04:54 POC Glucose 179 (58-89) H 03/04/17 07:32 Calculated Osmolality 270 (280-300) L 03/04/17 04:54 Ionized Calcium 1.12 mmol/L (1.15-1.35) L 03/01/17 04:10 Magnesium 1.4 mg/dL (1.6-2.6) L 03/04/17 04:54 Total Bilirubin 1.9 mg/dL (0.2-1.2) H 03/04/17 04:54 Direct Bilirubin 1.6 mg/dL (0.0-0.5) H 03/04/17 04:54 Alkaline Phosphatase 296 Units/L (38-126) H 03/04/17 04:54 B-Natriuretic Peptide 2203 pg/mL (0-100) H 02/25/17 07:11 Serum Total Protein 5.0 g/dL (6.0-8.3) L 03/04/17 04:54 Albumin 1.7 g/dL (3.5-5.0) L 03/04/17 04:54 Albumin/Globulin Ratio 0.5 (1.1-2.2) L 03/04/17 04:54 Ur Specimen Adequacy See below A 02/25/17 06:28 Urine Clarity Turbid (Clear) A 02/25/17 06:28 Urine Protein >=300 mg/dL (Neg-Trace) H 02/25/17 06:28 Urine Ketones Trace mg/dL (Negative) H 02/25/17 06:28 Urine Blood Large (Negative) H 02/25/17 06:28 Ur Leukocyte Esterase Large (Negative) H 02/25/17 06:28 Ur Culture Indicated? YES (NO) A 02/25/17 06:28 Pleural Appearance Hazy (Clear) A 02/26/17 15:30 Pleural RBC 0.020 M/mcL (0.000-0.002) H 02/26/17 15:30 - Microbiology Findings Microbiology Findings: Microbiology, Last 48 Hours 02/26/17 12:41 Blood Culture - Preliminary Port System Gram Positive Rods 02/26/17 12:41 Blood Culture - Final Port System No growth. 02/26/17 10:27 Blood Culture - Final Peripheral Venipuncture No growth. 02/26/17 10:20 Blood Culture - Final Peripheral Venipuncture No growth. 02/26/17 15:30 Body Fluid Culture - Final Pleural Fluid - Clinical Findings Intake & Output: Intake & Output 03/03/17 03/04/17 03/04/17 23:59 07:59 15:59 Intake Total 700 / 700 207.4 / 207.4 Output Total 100 / 100 100 / 100 Balance 600 / 600 107.4 / 107.4 Weight 86.9 kg - Attending Attestation I examined this patient and my medical decision-making was reviewed with the Resident Physician. I agree with the documented findings, disposition and treatment plan as described except to the extent set forth below. I spent 35min of Critical Care time with this patient. It involved decision making of high complexity to assess, manipulate, and support vital organ system failure and/or to prevent further life threatening deterioration of the patient' s condition. The time involved in the performance of separately reportable procedures was not counted toward critical care time. Patient seen and examined at bedside Labs, radiology, chart personally reviewed. All lines examined without evidence of infection. Management was reviewed during multidisciplinary critical care rounds. Neuropsych: Remains Encephalopathic which is secondary to ongoing cirrhosis end- stage renal disease severe sepsis and effect from sedative medications which we will attempt to avoid. 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 Pulm: Vented mixed vent adjusted for respiratory acidosis by increasing respiratory rate while employee low tidal volume ventilatory strategy. Worsening hypoxemia overnight with increase in PEEP goal PaO2 approximately 60 wean will wean Fio2 as able. Cards: Remains in distributive shock secondary to sepsis on vasopressor ( levophed); wean as able for goal mean arterial pressure greater than 60 echocardiogram pending today FEN-GI:GI Prophylaxis Given. Enteral Nutrition on hold s/t high residuals. Renal: ESRD dialysis planned today. replace lytes per protocol, Hypernatremia which is likely multifactorial including increased ADH levels and hypervolemia secondary to ESRD. ID: Repeat Cultures.[place] CT today. cont ABx for VRE and Gram negative pending ID consult. Heme/Onc: Remains Coagulopathic but no overt signs of bleeding; fibrinogen is normal suspect this is all related to severe underlying sepsis Endo: Blood Glucose monitored Integ/MSK/Vasc: Purpura. Noted of the distal extremities which is likely to poor perfusion secondary to vasopressor and shock pulses are dopplerable to the posterior tibia we will attempt to get arterial studies today and may need vascular surgery consult based upon outcome. Based upon nursing assessment and prior MD evaluation the Purpura actually has improved but we will follow this closely CODE: DNRCCA. Overall poor prognosis. I discussed at length with family charge nurse and palliative care team regarding goals of care the patient was clear that she did not want to have a tracheostomy placed I expressed that were about a week from that consideration if clinical course deteriorates further would recommend transitioning to comfort measures but we will continue to treat the patient aggressively until that point she is also been made DNR CCA which is appropriate her adult children are her healthcare proxies.
[2017-03-04] MEDS: MetroNIDAZOLE 500 MG/100 ML 500 MG/100 ML BAG IVPB SCH ×2 (08:30→15:54)
[2017-03-04] MEDS: Aspirin 81 MG TAB.CHEW PO SCH (08:31)
[2017-03-04] MEDS: Folic Acid 1 MG TABLET PO SCH (08:32)
[2017-03-04] MEDS: Chlorhexidine Rinse 15 ML MOUTHWASH MM SCH ×2 (08:33→20:38)
[2017-03-04] MEDS: Pantoprazole 40 MG VIAL IVPB SCH (08:33)
--- NOTE | 2017-03-04 09:27 | Nephrology Progress Note ---
Date of Encounter: 03/04/17 Time of Encounter: 09:15 - Assessment and Plan (1) End-stage renal disease Current Visit: No Status: Acute Acute on chronic respiratory failure, encephalopathy, cirrhosis. Will attempt to dialyze today, however will yield to Agricultural Extension Agent's perspective of patient stability. Subjective Principal diagnosis: Encephalopathy Interval history: Intubated, sedated, on one pressor. FIO2 60, peep 5. Nursing perspective, too unstable to dialyze. Objective - Vital Signs Vital signs: Vital Signs Temp Pulse Resp BP Pulse Ox 03/04/17 07:30 99.0 F 03/04/17 06:34 20 102/50 91 03/04/17 06:00 95 19 107/46 90 03/04/17 05:00 96 18 101/49 90 03/04/17 04:20 21 110/55 89 03/04/17 04:00 86 21 110/55 90 03/04/17 03:43 98.0 F 03/04/17 03:00 81 20 107/55 90 03/04/17 02:45 19 102/56 90 03/04/17 02:00 83 21 91/43 100 03/04/17 01:30 80 18 86/42 99 03/04/17 00:18 20 115/52 92 03/04/17 00:00 88 21 115/52 92 03/03/17 23:43 98.4 F 03/03/17 23:02 89 21 112/51 93 03/03/17 22:00 91 19 112/54 88 03/03/17 21:00 92 22 108/52 93 03/03/17 20:00 89 22 106/57 88 03/03/17 19:59 98.3 F 03/03/17 19:00 90 21 111/56 88 03/03/17 18:20 87 19 110/50 93 03/03/17 17:30 84 19 106/62 93 03/03/17 16:31 17 98 03/03/17 16:30 84 19 100/52 03/03/17 15:30 100.4 F H 85 20 102/56 96 03/03/17 14:25 86 19 103/68 97 03/03/17 13:30 87 18 102/55 96 03/03/17 12:30 84 19 115/59 95 03/03/17 11:52 20 97 07/23/17 11:30 98 F 85 19 115/58 96 03/03/17 10:29 93 20 116/56 96 03/03/17 09:30 88 18 118/54 96 Intake and Output 03/03/17 03/04/17 03/04/17 23:59 07:59 15:59 Intake Total 700 / 700 507.4 / 507.4 Output Total 100 / 100 100 / 100 Balance 600 / 600 407.4 / 407.4 Intake: IV Fluids 700 / 700 507.4 / 507.4 Levophed 8 MG In Dextrose 200 / 200 7.4 / 7.4 5% 250 ML @ 5 MCG/MIN 9. 67 mls/hr IVC CONT PRN Rx #:[id number] Azactam 500 MG In 100 / 100 100 / 100 Dextrose 5% 100 ML @ 200 mls/hr IVPB Q8H CANDE Rx#: [id number] Zyvox Premix 600mg/300mL 300 / 300 300 / 300 600 mg In 300 ml @ 150 mls/hr IVPB Q12HR CANDE Rx# :[id number] Flagyl Premix 500 MG/100 100 / 100 100 / 100 ML 500 mg In 100 ml @ 100 mls/hr IVPB Q8HR CANDE Rx# :[id number] Oral 0 / 0 0 / 0 Tube Feeding 0 / 0 0 / 0 Output: Urine 0 / 0 0 / 0 Gastric Drainage 100 / 100 100 / 100 Other: Stool Size Small Stool Consistency soft Stool Color Brown Weight 86.9 kg Blood Glucose* 132 179 Patient Weight 03/04/17 23:59 Weight 86.9 kg - General Appearance General appearance: Present: well-developed, well-nourished, appears started age EENT: Present: mucous membranes moist Neck: Present: no JVD Respiratory: Present: course breath sounds Cardiology: Present: edema, irregular rhythm Additional Comments: generalized Gastrointestinal: Present: hypoactive bowel sounds Integumentary: Present: warm and dry - Lab 03/04/17 04:54 03/04/17 04:54 Most recent lab results ABG pH 7.25 pH Units (7.32-7.45) L 03/04/17 04:50 ABG pCO2 56 mmHg (35-45) H 03/04/17 04:50 ABG pO2 63 mmHg (85-104) L 03/04/17 04:50 ABG HCO3 24.6 mEQ/L (21-27) 03/04/17 04:50 ABG O2 Saturation 88 % (95-98) L 03/04/17 04:50 Calcium 9.2 mg/dL (8.6-10.8) 03/04/17 04:54 Phosphorus 4.6 mg/dL (2.3-4.7) 03/02/17 08:10 Magnesium 1.4 mg/dL (1.6-2.6) L 03/04/17 04:54 - Stroke Is the patient on any antithrombotics?: No Contraindication Antithromb by Day Two: Not Indicated - Due to Bleeding Disorder or Risk of Bleeding (Coagulapathy with elevated INR) Consult Discharge Plan - Plan Referrals: Henrry Mccullough MD [Primary Care Provider] -
--- NOTE | 2017-03-04 11:11 | Infectious Disease Consult ---
Date of Encounter: 03/04/17 Time of Encounter: 11:03 Assessment and Plan (1) Septic shock Status: Acute Assessment and plan: Patient continues to meet criteria with fever, leukocytosis, and tachycardia. She was at one point on 3 vassopressor agent but now only on levophed. She is on Day 7 of aztreonam. Day five of linezolid. Day five of metronidazole. Pharmacy is adjsuting antibiotics to her renal function. Urine culture from 02/25/17 have grown VRE. Sputum cultures from 02/25/17 have grown Kluyvera ascorbata Resistant to Cipro, Levofloxacin and bactrim. peripheral Blood cultures from 02/26/17 show no growth to date. Blood cultures from port from 02/26/17 have grown 1/2 gram positive rods. cultures from pleural fluid from 02/26/17 show no growth to date. At this time etiology is unclear. Possible sources include port, UTI, decubitus ulcer. Other sources would include possible Pneumonia, or intraabdominal process. Would also consider causes of fever other than infection such as limb or bowel ischemia. Recommendations: Repeat blood cultures. Recommend CT of the chest. Recommend Ct of the abdomen and pelvis with PO contrast. Recommend checking amylase, lipase, CK, and peripheral blood smear. Recommend imaging of the right hip. Recommend repeating urine culture under sterile conditions. Can discontinue Linezolid if repeat urine cultures are negative. Continue aztreonam and flagyl. Continue to monitor for drug toxicities. Thank you for the consultation and the opportunity to participate in this patients care. (2) Respiratory failure Status: Acute Assessment and plan: Acute on chronic hypoxemia and hypercapneic respiratory failure. Patient appears to have pulmonary edema with bilateral effusions on XR of the chest. Patient currently on ventilatory support. Management per primary team. Recommend CT of the chest. Qualifiers: Chronicity: unspecified Respiratory failure complication: hypoxia and hypercapnia Qualified Code(s): J96.91 - Respiratory failure, unspecified with hypoxia; J96.92 - Respiratory failure, unspecified with hypercapnia (3) Bacteremia Status: Acute Assessment and plan: patient had 1/2 GPR grow from tunneled dialysis catheter. Contamination versus true line infection? At this time would recommend repeating blood cultures. (4) Lower limb ischemia Status: Acute Assessment and plan: patient with bilateral cyanosis of the toes on exam. I spoke with ICU staff and this developed after admission. I doubt this is contributing /source of her infection. However could be contributing to fever/ Leukocytosis. management per primary team. (5) Sacral decubitus ulcer, stage II Status: Acute Assessment and plan: wound care. (6) Cirrhosis Status: Acute Assessment and plan: management per primary team. Qualifiers: Hepatic cirrhosis type: unspecified hepatic cirrhosis Ascites presence: without ascites Qualified Code(s): K74.60 - Unspecified cirrhosis of liver (7) UTI (urinary tract infection) Status: Acute Assessment and plan: recommend repeat UA under sterile conditions. Qualifiers: Urinary tract infection type: site unspecified Hematuria presence: without hematuria Qualified Code(s): N39.0 - Urinary tract infection, site not specified (8) Atrial fibrillation Status: Acute Assessment and plan: currently rate controlled. Qualifiers: Atrial fibrillation type: unspecified Qualified Code(s): I48.91 - Unspecified atrial fibrillation (9) Chronic anemia Status: Acute Assessment and plan: stable near baseline. (10) ESRD (end stage renal disease) on dialysis Status: Acute Assessment and plan: management per nephrology. (11) Vancomycin resistant Enterococcus infection Status: Acute Assessment and plan: as stated above. Infectious Disease HPI - Data of Consult Patient: new to practice Consult date: 03/04/17 Requesting Physician: Tyler Guthrie DO Primary Care Provider: Henrry Mccullough MD - Consult Narrative Reason for consult: Sepsis/ unclear etiology. History of present illness: Ms. Rodriguez is a 71 year old female who is admitted to the [facility] on 02/25/2017 for acute and chronic respiratory failure and acute encephalopathy. Infectious diseases consultation on 03/04/2017 for sepsis with unclear source. Mrs. Rodriguez is a 71-year-old female with end-stage renal disease receiving hemodialysis every Saturday. She currently has a tunneled dialysis catheter in place. Diastolic heart failure, cirrhosis, COPD. Since admission the patient has been febrile with a MAXIMUM TEMPERATURE of 101.6. She was last drawn 03/03/2017. She is also had tachycardia. She had a normal white blood cell count on admission however this is Chary and peaked at 50.3 currently and is 34.8 with the 28% bands. She has had a GI panel that was negative for any pathogen. Urine cultures from 02/25/2070 have grown vancomycin -resistant enterococcus. Peripheral Blood cultures from 02/26/2017 showed no growth to date. Blood cultures from her port system on 02/26/2017 are +1 out of 2 for gram-positive rods. Pleural fluid from 02/26/2017 shows no growth to date. She has had multiple chest x-rays which revealed pulmonary edema and bilateral pleural effusions. CT of head shows no acute intracranial abnormalities. She is also had shock and required 3 different vasopressor agents at one time. This has since been weaned to only levophed. Today Mrs. Rodriguez is currently on ventilatory support is unable to give any historical information. Therefore the chart was supplemented with information from the medical record. Reportedly she was [facility] to [facility] CC: Tyler Guthrie, DO Past Med Surg Social Fam HX - Past Medical History Medical history: arthritis, atrial fibrillation, cirrhosis, CHF, COPD, diabetes , GERD, hyperlipidemia, hypertension, renal disease, other Psychiatric history: anxiety, panic disorder - Past Surgical History Surgical History: cholecystectomy, hysterectomy - Social History Smoking Status: Never smoker Smokeless Tobacco Status: No Alcohol use: none Drug use: none - Family History Mother History Unknown: Yes Living Status: Hx Family Cardiac Disorders: Yes Hx Family GI Disorders: Yes Hx Family Endocrine Disorder: Yes Father Living Status: Hx Family Cardiac Disorders: Yes Hx Family Cancer: Yes Sister Living Status: Still Living Hx Family Cancer: Yes (Breast Cancer, age 40's) Hx Family Endocrine Disorder: Yes (diabetes mellitus) Brother Living Status: Still Living Hx Family Cardiac Disorders: No Hx Family Respiratory Disorders: No Hx Family Cancer: No Hx Family GI Disorders: No Hx Family Endocrine Disorder: Yes Hx Family Neuromuscular Disorders: No Hx Family Neurologic Disorders: No Hx Family HEENT Disorders: No Hx Family Autoimmune Disorders: No Infectious Disease-CN:Meds Metoprolol [Lopressor] 12.5 mg PO HS 08/14/15 [History] Sertraline [Zoloft] 150 mg PO DAILY 08/14/15 [History] Sucralfate [Carafate] 2 gm PO BID 08/14/15 [History] Lactulose 10 gm PO QID 06/24/16 [History] Aspirin 81 mg PO DAILY 07/11/16 [History] Fluticasone/Vilanterol [Breo Ellipta 100-25 Mcg INH] 1 puff IH DAILY 07/11/16 [ History] Pantoprazole Sodium [Protonix] 40 mg PO DAILY 07/11/16 [History] Diltiazem [Cardizem] 30 mg PO TID 09/20/16 [History] Gabapentin [Neurontin] 100 mg PO BID 09/20/16 [History] Sennosides [Senna] 17.2 mg PO DAILY 09/20/16 [History] Simethicone [Gas-X] 120 mg PO BID PRN 09/20/16 [History] Folic Acid 1 mg PO DAILY #30 tablet 12/03/16 [Rx] Ferrous Gluconate 324 mg PO TID 01/12/17 [History] Warfarin [Coumadin] 2 mg PO HS 01/12/17 [History] Amino Acids/Protein Hydrolys [Pro-Stat Awc Liquid] 30 ml PO BID 01/28/17 [ History] Ipratropium/Albuterol Neb [Duoneb] 3 ml IH Q6HR PRN 01/28/17 [History] Mupirocin [Bactroban Oint] 1 appl TP MOWEFR 01/28/17 [History] Insulin ASPART [Novolog Flexpen] 0 - 10 units SQ TID #1 MDD PER SLIDING SCALE 02/06/17 [Rx] Lidocaine Patch [Lidoderm 5% patch] 1 each TP DAILY #6 adh..patch 02/06/17 [Rx] OxyCODONE Immed Rel [Roxicodone 5 MG] 5 mg PO Q6HR PRN #16 tablet 02/06/17 [Rx] Gentamicin OPTH Soln 1 drop OP TID 02/25/17 [History] Metoprolol [Lopressor] 12.5 mg PO SUTUTHSA@0800 02/25/17 [History] Torsemide 50 mg PO DAILY 02/25/17 [History] Allergies ceftriaxone [From Rocephin] Allergy (Severe, Verified 02/25/17 05:02) Anaphylaxis Occured at [facility]. Required ICU transfer, intubation, and mechanical ventilation. ciprofloxacin [From Cipro] Allergy (Mild, Verified 02/25/17 05:02) Rash sulfamethoxazole [From Bactrim] Allergy (Verified 02/25/17 05:02) See Comments trimethoprim [From Bactrim] Allergy (Verified 02/25/17 05:02) See Comments piperacillin [From Zosyn] Adverse Reaction (Verified 02/25/17 18:25) See Comments unknown, per list from [facility] tazobactam [From Zosyn] Adverse Reaction (Verified 02/25/17 18:25) See Comments unknown, per list from [facility] rozeta Allergy (Uncoded 02/25/17 05:02) See Comments ROS unobtainable: due to mental status Exam - Constitutional Vitals: Temp Pulse Resp BP Pulse Ox 99.0 F 96 19 104/54 94 03/04/17 07:30 03/04/17 10:00 03/04/17 10:00 03/04/17 10:39 03/04/17 10:00 Exam: Gen.: This is a well-developed well-nourished 71-year-old female who is currently intubated and currently not on sedation. She does respond some to painful stimuli but otherwise is unresponsive. HEENT: The head is normocephalic atraumatic. Pupils are equally round and react to light. There is a ET tube and OG tube in place the OG tube has appears to be gastric contents. Neck is supple without mass or thyromegaly. The mucous membranes are moist. The trachea is midline. Heart: Regular rate and rhythm without murmurs rubs or gallops. Lungs: Mild wheezes in the right upper lung field otherwise are clear to auscultation bilaterally. She has a normal rise of extensive chest wall bilaterally. There are some diminished breath sounds at the bases bilaterally. Abdomen: The abdomen is obese, soft, nondistended, no masses or organomegaly. No noticeable tenderness when observing the patient's facial features while palpating the abdomen. Musculoskeletal: Grossly normal for age no gross deformity noted. Extremities there is notable cyanosis of the second third and fourth toes of the left and right feet bilaterally no obvious lesions of the feet. There is some mild pedal edema bilaterally and also some left upper extremity edema. Integument: No rashes or lesions. She does have some mild bruising of the upper extremities bilaterally. Lines: She currently has a left tunneled internal jugular dialysis catheter. She also has a right femoral central venous catheter. She has a endotracheal tube and OG tube. Infectious Disease CN: Results - Labs CBC & Chem 7: 03/05/17 03:50 03/05/17 03:50 Cultures: Cultures 02/26/17 12:41 Blood Culture - Preliminary Port System Gram Positive Rods 02/26/17 12:41 Blood Culture - Final Port System No growth. 02/26/17 10:27 Blood Culture - Final Peripheral Venipuncture No growth. 02/26/17 10:20 Blood Culture - Final Peripheral Venipuncture No growth. 02/26/17 15:30 Body Fluid Culture - Final Pleural Fluid 02/25/17 14:20 Sputum Culture - Final Sputum Nitesha ascorbata Serology: Serology 02/27/17 02/26/17 02/25/17 Range/Units 16:20 15:30 11:00 Pleural Fluid Volume 15.0 mL Pleural Appearance Hazy A (Clear) Pleural pH 7.51 (No Ref Range) pH Units Pleural RBC 0.020 H (0.000 - 0.002) M/mcL Pleural Tot Nuc Cell 181 (0-1000) TNC/mcL Pleural Neutrophils 47.0 % Pleural Band Neuts 3.0 % Pleural Eosinophils Test Not Performed Pleural Basophils Test Not Performed Pleural Lymphocytes % 35.0 % Pleural Monocytes % 5.0 % Pleural Other Cells % 10.0 % Pleural Total Protein 2.6 (No Ref Range) g/dL Pleural Albumin 1.5 (No Ref Range) g/dL Pleural LDH 115 (No Ref Range) Units/L Pleural Glucose 171 (No Ref Range) mg/dL Pleural Amylase 21 (No Ref Range) Units/L Pleural Cholesterol 46 (No Ref Range) mg/dL Pleural Triglycerides 25 (No Ref Range) mg/dL Stl C. cayetanensis PCR Not detected (Not detect) Stool Rotavirus A PCR Not detected (Not detect) Stl Adenov F 40/41 PCR Not detected (Not detect) Stool Astrovirus (PCR) Not detected (Not detect) Stool Campylobacter PCR Not detected (Not detect) Stl C. diff Tox A/B PCR Not detected (Not detect) Stool Cryptosporidium PCR Not detected (Not detect) Stl Sh Tox Pr E STEC PCR Not detected (Not detect) Stool E coli O157 PCR Not detected (Not detect) Stl Enterotoxigenic E PCR Not detected (Not detect) Stool EPEC (PCR) Not detected (Not detect) Stool EAEC (PCR) Not detected (Not detect) Stl E. histolytica PCR Not detected (Not detect) Stool Giardia Lamblia PCR Not detected (Not detect) Stool Salmonella PCR Not detected (Not detect) Stool Sapovirus (PCR) Not detected (Not detect) Stl P. shigelloides PCR Not detected (Not detect) Stl Shigella/EIEC PCR Not detected (Not detect) St Y.enterocolitica PCR Not detected (Not detect) Stool Vibrio (PCR) Not detected (Not detect) Stl Vibrio cholerae PCR Not detected (Not detect) Stl Norovirus GI/GII PCR Not detected (Not detect) Stl GI Panel (PCR) Com See below Hep Bs Antigen Nonreactive (Nonreactive) Hep Bs Antibody 0.23 mIU/mL - Stroke Is the patient on any antithrombotics?: Yes Are there any contradictions to antithrombotics?: No Contraindication Antithromb by Day Two: Not Indicated - Due to Bleeding Disorder or Risk of Bleeding (Coagulapathy with elevated INR) Consult Discharge Plan - Plan Referrals: Henrry Mccullough MD [Primary Care Provider] - - Attending Attestation I examined this patient and my medical decision-making was reviewed with the Resident Physician. I agree with the documented findings, disposition and treatment plan as described except to the extent set forth below. Patient is a 71 year old woman admitted to [facility] on 02/25/17 for acute on chronic respiratory failure and encephalopathy, we are consulted today for sepsis with unclear etiology. Patient with history mentioned below including ESRD on HD [facility]. She received some Narcan and that seems to have helped. Patient was transferred to [facility] for evaluation. Patient had Respiratory failure and required intubation. Since admission, patient has been febrile, tachycardia, leukocytosis with bandemia and respiratory failure on vent support. Work up revealed pulmonary edema with bilateral pleural effusion s/p thoracentesis which revealed transudatve fluid with negative gram stain and culture. Patient also was noted to have VRE in the urine. Sputum culture was positive for kluyvera ascorbata on 02/25. Blood cultures from 02/26 no growth, from port, patient had GPR ( likely contaminant) Patient had a CT head with no acute process. Patient was having diarrhea and a GI panel was done which was negative. Patient also had Coumadin toxicity. She was started empirically on aztreonam, linezolid and flagyl. Patient also has been on shock and is on multiple pressors. Etiology is not very clear, concern for intra abdominal source vs hip vs lower extremity Will check CT chest abdomen and pelvis with oral contrast Check lipase, amylase, LDH, CK, sputum culture, urine culture (under ideal situation) and repeat blood cultures Continue current antibiotics for now Based on repeat cultures, will make further recommendations. Prognosis overall guarded
[2017-03-04] MEDS ORDERED: *HR* Heparin 10,000 UNIT/10 ML VIAL IV PRN (11:59)
[2017-03-04] MEDS ORDERED: 0.9 % Sodium Chloride 250 ML IVC PRN (11:59)
[2017-03-04 12:06] LABS: ABG Base Excess -5.3 mEq/L (-2.0 to 3.0); ABG HCO3 21.9 mEQ/L (21-27); ABG Oxygen Saturation 97 % (95-98); ABG PCO2 50 mmHg (35-45); ABG PH 7.25 pH Units (7.32-7.45); ABG PO2 100 mmHg (85-104); ABG TCO2 23.4 mEq/L (20-26)
[2017-03-04 12:07] LABS: Blood Gas FiO2 60 %
--- NOTE | 2017-03-04 12:16 | Palliative Progress Note ---
Date of Encounter: 03/04/17 Time of Encounter: 10:45 - Assessment and plan (1) Dyspnea Current Visit: No Status: Acute Assessment and plan: Ms. Rodriguez remains intubated, sedated, and on mechanical ventilation. Qualifiers: Dyspnea type: shortness of breath Qualified Code(s): R06.02 - Shortness of breath (2) Acute respiratory failure with hypoxia and hypercapnia Current Visit: Yes Status: Acute Assessment and plan: Ms. Rodriguez remains intubated on mechanical ventilation without sedation. (3) End stage renal disease Current Visit: Yes Status: Acute Assessment and plan: Nephrology following. (4) Goals of care, counseling/discussion Current Visit: Yes Status: Acute Assessment and plan: Family meeting with children (Radha, Michelle, and son), Dr. San, Nurse, and PC team. Reviewed physical assessment, diagnostic testing, and plan of care. Family able to summarize conversation. Will continue with current treatment plan and await recommendations from specialists. (5) Cirrhosis Current Visit: No Status: Chronic Qualifiers: Hepatic cirrhosis type: other cirrhosis Qualified Code(s): K74.69 - Other cirrhosis of liver - Time Spent With Patient Total time spent is greater than 50% in coordination of care (as documented) at patient's floor/unit and/or counseling patient: - Subjective Interval history: Ms. Rodriguez is in the ICU intubated, on mechanical ventilation without sedation. - Constitutional Vitals: Abnormal lab results WBC 34.8 K/mcL (4.3-11.1) H* 03/04/17 04:54 Hgb 8.9 g/dL (11.5-15.4) L 03/04/17 04:54 Hct 30.5 % (35.3-44.9) L 03/04/17 04:54 MCV 78.8 fL (83.0-100.0) L 03/04/17 04:54 MCH 23.0 pg (28.0-33.3) L 03/04/17 04:54 MCHC 29.2 g/dL (31.6-35.5) L 03/04/17 04:54 RDW 21.1 % (11.5-14.5) H 03/04/17 04:54 Band Neutrophils % 28.0 % (0-4) H 03/04/17 04:54 Neutrophils # 31.3 K/mcL (1.6-8.9) H 03/04/17 04:54 Monocytes # 2.8 K/mcL (0.0-1.3) H 03/04/17 04:54 Nucleated RBCs/100 WBC 0.3 /100 WBC (0) H 03/04/17 04:54 Toxic Granulation Present (Not Present) A 03/03/17 03:15 Immature Plt Fraction 1.0 % (1.1-6.1) L 02/25/17 07:11 Polychromasia 1+ (Not Present) A 03/02/17 08:10 Hypochromasia Present (Not Present) A 03/03/17 03:15 Poikilocytosis 1+ (Not Present) A 03/02/17 08:10 Basophilic Stippling 1+ (Not Present) A 02/25/17 07:11 Anisocytosis 1+ (Not Present) A 03/03/17 03:15 Microcytosis Present (Not Present) A 03/03/17 03:15 Acanthocytes (Spur) 1+ (Not Present) A 02/28/17 03:17 PT 13.1 Seconds (9.4-12.1) H D 03/04/17 04:54 APTT 110.3 Seconds (26.0-36.0) H* 03/01/17 04:10 Fibrinogen 482 mg/dL (169-393) H 03/03/17 04:18 D-Dimer 874 ng/mLFEU (0-500) H 03/03/17 04:18 Heparin Anti-Xa, Unfract 0.01 IU/mL (0.30-0.70) L 03/01/17 04:10 ABG pH 7.25 pH Units (7.32-7.45) L 03/04/17 04:50 ABG pCO2 56 mmHg (35-45) H 03/04/17 04:50 ABG pO2 63 mmHg (85-104) L 03/04/17 04:50 ABG Total CO2 26.3 mEq/L (20-26) H 03/04/17 04:50 ABG O2 Saturation 88 % (95-98) L 03/04/17 04:50 ABG Base Excess -3.2 mEq/L (-2.0 to 3.0) L 03/04/17 04:50 VBG pH 7.08 pH Units (7.32-7.42) L* 02/25/17 05:40 VBG pCO2 92 mmHg (41-51) H 02/25/17 05:40 VBG pO2 67 mmHg (25-40) H 02/25/17 05:40 VBG HCO3 27.3 mEq/L (21-27) H 02/25/17 05:40 Sodium 123 mEq/L (136-145) L 03/04/17 04:54 Chloride 89 mEq/L (98-109) L 03/04/17 04:54 BUN 45 mg/dL (7-20) H D 03/04/17 04:54 Creatinine 3.39 mg/dL (0.57-1.11) H 03/04/17 04:54 Est GFR ( Amer) 16 (> 60) L 03/04/17 04:54 Est GFR (Non-Af Amer) 13 (> 60) L 03/04/17 04:54 Glucose 145 mg/dL (70-99) H 03/04/17 04:54 POC Glucose 179 (58-89) H 03/04/17 07:32 Calculated Osmolality 270 (280-300) L 03/04/17 04:54 Ionized Calcium 1.12 mmol/L (1.15-1.35) L 03/01/17 04:10 Magnesium 1.4 mg/dL (1.6-2.6) L 03/04/17 04:54 Total Bilirubin 1.9 mg/dL (0.2-1.2) H 03/04/17 04:54 Direct Bilirubin 1.6 mg/dL (0.0-0.5) H 03/04/17 04:54 Alkaline Phosphatase 296 Units/L (38-126) H 03/04/17 04:54 B-Natriuretic Peptide 2203 pg/mL (0-100) H 02/25/17 07:11 Serum Total Protein 5.0 g/dL (6.0-8.3) L 03/04/17 04:54 Albumin 1.7 g/dL (3.5-5.0) L 03/04/17 04:54 Albumin/Globulin Ratio 0.5 (1.1-2.2) L 03/04/17 04:54 Ur Specimen Adequacy See below A 02/25/17 06:28 Urine Clarity Turbid (Clear) A 02/25/17 06:28 Urine Protein >=300 mg/dL (Neg-Trace) H 02/25/17 06:28 Urine Ketones Trace mg/dL (Negative) H 02/25/17 06:28 Urine Blood Large (Negative) H 02/25/17 06:28 Ur Leukocyte Esterase Large (Negative) H 02/25/17 06:28 Ur Culture Indicated? YES (NO) A 02/25/17 06:28 Pleural Appearance Hazy (Clear) A 02/26/17 15:30 Pleural RBC 0.020 M/mcL (0.000-0.002) H 02/26/17 15:30 Exam: 71 year old female, intubated without sedation on mechanical ventilation - Eye Additional comments: pupils sluggish - ENT ENT exam: Present: mucous membranes moist - Respiratory Respiratory exam: Absent: respiratory distress Additional comments: intubated without sedation on mechanical ventilation - Cardiovascular Cardiovascular exam: Present: RRR - GI/Abdominal GI/Abdominal exam: Present: hypoactive bowel sounds (hypoactive BS, LLQ with most activity) - Extremities Exam Additional comments: 2nd, 3rd, 4th toes of the left foot purple discoloration. 2nd, 4th, 5th toes of the right foot purple discoloration. dorsal aspect of bilateral feet with ruberous appearance. - Neurological Exam Neurological exam: Absent: alert Additional comments: non alert, does not follow commands, does react to stimulation of bilateral feet. - Psychiatric Psychiatric exam: Absent: agitated, anxious Palliative Quality Palliative Quality: Screen for Code Status: Yes, Screen for Goals of Care: Yes, Screen for Pain: Yes, If Pain Regimen Started, Initiate Bowel Regimen: Yes, Screen for Nausea/Vomitting: Yes Code Status: 03/01/17 14:19 CODE [Resuscitation Status: Active] [RES] Routine Comment: Resuscitation Status: DNR-Comfort Care-Arrest - Labs CBC & Chem 7: 03/04/17 04:54 03/04/17 04:54 Labs: Laboratory Results - last 24 hr 03/03/17 03/03/17 03/03/17 03:44 07:38 11:44 WBC RBC Hgb Hct MCV MCH MCHC RDW Plt Count MPV Seg Neutrophils % Band Neutrophils % Lymphocytes % Monocytes % Neutrophils # Lymphocytes # Monocytes # Nucleated RBCs/100 WBC Platelet Estimate PT INR ABG pH ABG pCO2 ABG pO2 ABG HCO3 ABG Total CO2 ABG O2 Saturation ABG Base Excess Blood Gas Modality Inspired O2 Sodium Potassium Chloride Carbon Dioxide BUN Creatinine Est GFR ( Amer) Est GFR (Non-Af Amer) BUN/Creatinine Ratio Glucose POC Glucose 156 H 203 H 147 H Calculated Osmolality Calcium Magnesium Total Bilirubin Direct Bilirubin Indirect Bilirubin AST ALT Alkaline Phosphatase Serum Total Protein Albumin Globulin Albumin/Globulin Ratio 03/03/17 03/03/17 03/03/17 16:22 18:55 23:13 WBC RBC Hgb Hct MCV MCH MCHC RDW Plt Count MPV Seg Neutrophils % Band Neutrophils % Lymphocytes % Monocytes % Neutrophils # Lymphocytes # Monocytes # Nucleated RBCs/100 WBC Platelet Estimate PT INR ABG pH ABG pCO2 ABG pO2 ABG HCO3 ABG Total CO2 ABG O2 Saturation ABG Base Excess Blood Gas Modality Inspired O2 Sodium Potassium Chloride Carbon Dioxide BUN Creatinine Est GFR ( Amer) Est GFR (Non-Af Amer) BUN/Creatinine Ratio Glucose POC Glucose 106 H 174 H 132 H Calculated Osmolality Calcium Magnesium Total Bilirubin Direct Bilirubin Indirect Bilirubin AST ALT Alkaline Phosphatase Serum Total Protein Albumin Globulin Albumin/Globulin Ratio 03/04/17 03/04/17 03/04/17 03:18 04:50 04:54 WBC 34.8 H* RBC 3.87 Hgb 8.9 L Hct 30.5 L MCV 78.8 L MCH 23.0 L MCHC 29.2 L RDW 21.1 H Plt Count 173 MPV 10.1 Seg Neutrophils % 62.0 Band Neutrophils % 28.0 H Lymphocytes % 2.0 Monocytes % 8.0 Neutrophils # 31.3 H Lymphocytes # 0.7 Monocytes # 2.8 H Nucleated RBCs/100 WBC 0.3 H Platelet Estimate Normal PT INR ABG pH 7.25 L ABG pCO2 56 H ABG pO2 63 L ABG HCO3 24.6 ABG Total CO2 26.3 H ABG O2 Saturation 88 L ABG Base Excess -3.2 L Blood Gas Modality VC Inspired O2 50 Sodium Potassium Chloride Carbon Dioxide BUN Creatinine Est GFR ( Amer) Est GFR (Non-Af Amer) BUN/Creatinine Ratio Glucose POC Glucose 125 H Calculated Osmolality Calcium Magnesium Total Bilirubin Direct Bilirubin Indirect Bilirubin AST ALT Alkaline Phosphatase Serum Total Protein Albumin Globulin Albumin/Globulin Ratio 03/04/17 03/04/17 03/04/17 04:54 04:54 07:32 WBC RBC Hgb Hct MCV MCH MCHC RDW Plt Count MPV Seg Neutrophils % Band Neutrophils % Lymphocytes % Monocytes % Neutrophils # Lymphocytes # Monocytes # Nucleated RBCs/100 WBC Platelet Estimate PT 13.1 H D INR 1.2 D ABG pH ABG pCO2 ABG pO2 ABG HCO3 ABG Total CO2 ABG O2 Saturation ABG Base Excess Blood Gas Modality Inspired O2 Sodium 123 L Potassium 3.9 Chloride 89 L Carbon Dioxide 23 BUN 45 H D Creatinine 3.39 H Est GFR ( Amer) 16 L Est GFR (Non-Af Amer) 13 L BUN/Creatinine Ratio 13 Glucose 145 H POC Glucose 179 H Calculated Osmolality 270 L Calcium 9.2 Magnesium 1.4 L Total Bilirubin 1.9 H Direct Bilirubin 1.6 H Indirect Bilirubin 0.3 AST 16 ALT 16 Alkaline Phosphatase 296 H Serum Total Protein 5.0 L Albumin 1.7 L Globulin 3.3 Albumin/Globulin Ratio 0.5 L - ABG Interpretation ABG results: ABG ABG pH 7.25 pH Units (7.32-7.45) L 03/04/17 04:50 ABG pCO2 56 mmHg (35-45) H 03/04/17 04:50 ABG pO2 63 mmHg (85-104) L 03/04/17 04:50 ABG O2 Saturation 88 % (95-98) L 03/04/17 04:50 PT/INR, D-dimer PT 13.1 Seconds (9.4-12.1) H D 03/04/17 04:54 D-Dimer 874 ng/mLFEU (0-500) H 03/03/17 04:18 Consult Discharge Plan - Plan Referrals: Henrry Mccullough MD [Primary Care Provider] -
[2017-03-04] MEDS ORDERED: *HR* Heparin 5,000 UNIT/ML VIAL ONE (15:04)
[2017-03-04] MEDS ORDERED: Magnesium Sulfate 2 GM in D5% in Water 100 ML IVPB ONE (15:12)
[2017-03-04 15:54] LABS: Amylase 16 Units/L (25-125); Creatine Kinase 33 Units/L (29-168); Lactate Dehydrogenase 259 Units/L (159-327); Lipase 43 Units/L (8-78)
[2017-03-04] MEDS: Norepinephrine 8 MG in D5% in Water 250 ML IVC PRN (17:48)
[2017-03-04] MEDS: FentaNYL (PF) 1,000 MCG in 0.9 % Sodium Chloride 80 ML IVC SCH (20:30)
[2017-03-04] MEDS: Dexmedetomidine HCl 400 MCG/100 ML MLS IVC SCH (20:31)
[2017-03-04] MEDS: Vasopressin 40 UNIT in D5% in Water 100 ML IV SCH (20:31)
[2017-03-04] MEDS: EPINEPHrine 1 MG in D5% in Water 250 ML IVC SCH (20:33)
[2017-03-05] MEDS: MetroNIDAZOLE 500 MG/100 ML 500 MG/100 ML BAG IVPB SCH ×4 (01:00→23:09)
[2017-03-05] MEDS: Aztreonam 500 MG in D5% in Water 100 ML IVPB SCH ×3 (01:57→17:22)
[2017-03-05] MEDS: Lacri-Lube 3.5 GM TUBE BOTH EYES SCH ×6 (04:00→23:09)
[2017-03-05 04:21] LABS: INR 1.2; Prothrombin Time 12.5 Seconds (9.4-12.1)
[2017-03-05 04:31] LABS: Albumin/Globulin Ratio 0.5 (1.1-2.2); Bilirubin,Direct 1.3 mg/dL (0.0-0.5); Bilirubin,Indirect 0.2 mg/dL (0.0-1.2); Bilirubin,Total 1.5 mg/dL (0.2-1.2); Calcium 8.6 mg/dL (8.6-10.8); Globulin 3.1 g/dL (2.4-3.5); Magnesium 1.7 mg/dL (1.6-2.6); Potassium 3.5 mEq/L (3.5-4.5); Total Protein 4.7 g/dL (6.0-8.3)
[2017-03-05 04:32] LABS: Albumin 1.6 g/dL (3.5-5.0); Hemoglobin 8.7 g/dL (11.5-15.4)
[2017-03-05 04:33] LABS: Hematocrit 30.2 % (35.3-44.9); Mean Corpuscular HGB Conc 28.8 g/dL (31.6-35.5); Mean Corpuscular Hemoglobin 22.5 pg (28.0-33.3); Mean Platelet Volume 10.2 fL (9.4-12.4); Nucleated Red Blood Cells 0.3 /100 WBC (0); Platelet Count 161 K/mcL (140-400); Red Blood Count 3.87 M/mcL (3.82-4.97); Red Cell Distribution Width 21.1 % (11.5-14.5)
[2017-03-05 04:55] LABS: ABG Base Excess -2.3 mEq/L (-2.0 to 3.0); ABG HCO3 24.8 mEQ/L (21-27); ABG Oxygen Saturation 99 % (95-98); ABG PCO2 54 mmHg (35-45); ABG PH 7.27 pH Units (7.32-7.45); ABG PO2 138 mmHg (85-104); ABG TCO2 26.5 mEq/L (20-26)
[2017-03-05 04:56] LABS: Blood Gas FiO2 60 %
[2017-03-05] MEDS: Insulin LISPRO 300 UNITS/3 ML VIAL SQ SCH ×6 (05:00→23:13)
[2017-03-05 05:47] LABS: Lymphocytes # 0.6 K/mcL (0.6-4.6); Monocytes # 1.1 K/mcL (0.0-1.3); Neutrophils # 26.3 K/mcL (1.6-8.9); Platelet Estimate Normal (Normal)
[2017-03-05 05:48] LABS: Acanthocytes 1+ (Not Present); Anisocytosis 1+ (Not Present); Hypochromasia Present (Not Present); Macrocytosis Present (Not Present)
[2017-03-05 05:49] LABS: Microcytosis Present (Not Present)
--- NOTE | 2017-03-05 06:36 | Infectious Disease Progress No ---
Date of Encounter: 03/05/17 Time of Encounter: 06:34 - Assessment and Plan (1) Septic shock Current Visit: Yes Status: Acute Patient no longer meets SIRS criteria. Fever has resolved. Leukocytosis is trending down. 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 Peripheral blood cultures from 02/26/17 show no growth to date. Blood cultures from tunneled dialysis catheter have grown 1/2 GPC. Repeat blood cultures from 03/04/17 are pending. Repeat urine culture from 03/04/[address] of the abdomen pelvis and chest performed on 03/04/17 did not reveal a definite source of infection. There is some dependant consolidation/ atelectasis on the right " pneumonia could not be ruled out" New subacute rib fractures are noted on the left. Findings compatible with cirrhosis noted. There was some mild thickening of the colon thought to be " artifact" Incidental note of acute fracture of the right hip. CT of the head performed on 03/04/17 reveals some fluid in the mastoid air cells but no acute intracranial abnormalities. However no sign of infection on my exam. CT of the hip performed on 03/04/17 revealed a right greater trochanteric fracture. There was a small amount of intraarticular fluid as well. CK, AMylase, and lipase were within normal limits. Normal Bilateral ABIs. Respiratory infection panel and GI panel negative. Source of infection unclear at this time. Possibly line infection, versus pneumonia, versus infection from sacral wound. Sacral wound dose not overtly appear infected but is covered with an eschar. Doubt mastoiditis as there are no abnormal exam findings. Patient has been afebrile overnight and Levophed is being weaned down. Recommendations: We will follow up with pending blood and urine cultures. Recommend wound care for sacral decubitus ulcer. Continue to monitor for drug toxicities. If Urine culture has no growth then recommend discontinuing Zyvox. Continue aztreonam and flagyl. (2) Respiratory failure Current Visit: Yes Status: Acute Acute on chronic hypercapneic and hpoxemic. Currently on Ventilatory support. Pulmonology is managing. Qualifiers: Chronicity: unspecified Respiratory failure complication: hypoxia and hypercapnia Qualified Code(s): J96.91 - Respiratory failure, unspecified with hypoxia; J96.92 - Respiratory failure, unspecified with hypercapnia (3) Bacteremia Current Visit: Yes Status: Acute Contamination vs. true infection of tunneled dialysis catheter. 1/2 GPR jax represents contamination. Repeat blood cultures from 03/04/17 are pending. We will follow up with those results. (4) Decubitus ulcer of sacral region, unstageable Current Visit: Yes Status: Acute patient has large unstagable sacral decubitus ulcer with large eschar. Dose not seem to be overtly infected on exam. Would recommend wound care if not already following. (5) Lower limb ischemia Current Visit: Yes Status: Acute Possibly from pressor agents. Normal preliminary ABIs. Developed after admission. Doubt an infectious process. (6) Cirrhosis Current Visit: Yes Status: Acute management per primary team. Qualifiers: Hepatic cirrhosis type: unspecified hepatic cirrhosis Ascites presence: without ascites Qualified Code(s): K74.60 - Unspecified cirrhosis of liver (7) UTI (urinary tract infection) Current Visit: Yes Status: Acute repeat urine culture pending. If no growth can discontinue Zyvox. Qualifiers: Urinary tract infection type: site unspecified Hematuria presence: without hematuria Qualified Code(s): N39.0 - Urinary tract infection, site not specified (8) Atrial fibrillation Current Visit: Yes Status: Acute currently rate controlled. management per primary team. Qualifiers: Atrial fibrillation type: unspecified Qualified Code(s): I48.91 - Unspecified atrial fibrillation (9) Chronic anemia Current Visit: Yes Status: Acute stable. near baseline. (10) ESRD (end stage renal disease) on dialysis Current Visit: Yes Status: Acute management per nephrology. patient currently has access with a left tunneled dialysis catheter. Has fistula in left wrist but dose not appear to be functional. (11) Vancomycin resistant Enterococcus infection Current Visit: Yes Status: Acute we will follow up with repeat cultures. (12) Closed fracture of greater trochanter of femur Current Visit: Yes Status: Acute closed nondiscplaced fracture of the right femural greater trochanter. No evidence on infection on imaging. I think this is unlikely to be the source of infection. Qualifiers: Encounter type: subsequent encounter Fracture alignment: nondisplaced Laterality: right Fracture healing: with malunion Qualified Code(s): S72.114P - Nondisplaced fracture of greater trochanter of right femur, subsequent encounter for closed fracture with malunion - Subjective Interval history: Patient did have some runs of nonsustained Vtach overnight and bradycardia. Otherwise no major events overnight per staff therapist. Patient remains on mechanical ventilation and is still responding only to painful stimuli and not following commands. Infect Dis PN-Objective Data - Labs CBC & Chem 7: 03/07/17 03:15 03/07/17 03:15 Labs: Laboratory Results - last 24 hr 03/04/17 03/04/17 03/04/17 03:18 07:32 11:38 WBC RBC Hgb Hct MCV MCH MCHC RDW Plt Count MPV Seg Neutrophils % Lymphocytes % Monocytes % Neutrophils # Lymphocytes # Monocytes # Nucleated RBCs/100 WBC Platelet Estimate Hypochromasia Anisocytosis Microcytosis Macrocytosis Acanthocytes (Spur) Smear Path Review PT INR ABG pH ABG pCO2 ABG pO2 ABG HCO3 ABG Total CO2 ABG O2 Saturation ABG Base Excess Blood Gas Modality Inspired O2 Sodium Potassium Chloride Carbon Dioxide BUN Creatinine Est GFR ( Amer) Est GFR (Non-Af Amer) BUN/Creatinine Ratio Glucose POC Glucose 125 H 179 H 164 H Calculated Osmolality Calcium Ionized Calcium Magnesium Total Bilirubin Direct Bilirubin Indirect Bilirubin AST ALT Alkaline Phosphatase Lactate Dehydrogenase Creatine Kinase Serum Total Protein Albumin Globulin Albumin/Globulin Ratio Amylase Lipase 03/04/17 03/04/17 03/04/17 11:55 15:00 15:00 WBC RBC Hgb Hct MCV MCH MCHC RDW Plt Count MPV Seg Neutrophils % Lymphocytes % Monocytes % Neutrophils # Lymphocytes # Monocytes # Nucleated RBCs/100 WBC Platelet Estimate Hypochromasia Anisocytosis Microcytosis Macrocytosis Acanthocytes (Spur) Smear Path Review See Below PT INR ABG pH 7.25 L ABG pCO2 50 H ABG pO2 100 ABG HCO3 21.9 ABG Total CO2 23.4 ABG O2 Saturation 97 ABG Base Excess -5.3 L Blood Gas Modality VENT Inspired O2 60 Sodium Potassium Chloride Carbon Dioxide BUN Creatinine Est GFR ( Amer) Est GFR (Non-Af Amer) BUN/Creatinine Ratio Glucose POC Glucose Calculated Osmolality Calcium Ionized Calcium Magnesium Total Bilirubin Direct Bilirubin Indirect Bilirubin AST ALT Alkaline Phosphatase Lactate Dehydrogenase 259 Creatine Kinase 33 Serum Total Protein Albumin Globulin Albumin/Globulin Ratio Amylase 16 L Lipase 43 03/04/17 03/04/17 03/04/17 15:43 19:06 23:42 WBC RBC Hgb Hct MCV MCH MCHC RDW Plt Count MPV Seg Neutrophils % Lymphocytes % Monocytes % Neutrophils # Lymphocytes # Monocytes # Nucleated RBCs/100 WBC Platelet Estimate Hypochromasia Anisocytosis Microcytosis Macrocytosis Acanthocytes (Spur) Smear Path Review PT INR ABG pH ABG pCO2 ABG pO2 ABG HCO3 ABG Total CO2 ABG O2 Saturation ABG Base Excess Blood Gas Modality Inspired O2 Sodium Potassium Chloride Carbon Dioxide BUN Creatinine Est GFR ( Amer) Est GFR (Non-Af Amer) BUN/Creatinine Ratio Glucose POC Glucose 156 H 137 H 118 H Calculated Osmolality Calcium Ionized Calcium Magnesium Total Bilirubin Direct Bilirubin Indirect Bilirubin AST ALT Alkaline Phosphatase Lactate Dehydrogenase Creatine Kinase Serum Total Protein Albumin Globulin Albumin/Globulin Ratio Amylase Lipase 03/05/17 03/05/17 03/05/17 03:50 03:50 03:50 WBC 28.0 H RBC 3.87 Hgb 8.7 L Hct 30.2 L MCV 78.0 L MCH 22.5 L MCHC 28.8 L RDW 21.1 H Plt Count 161 MPV 10.2 Seg Neutrophils % 94.0 Lymphocytes % 2.0 Monocytes % 4.0 Neutrophils # 26.3 H Lymphocytes # 0.6 Monocytes # 1.1 Nucleated RBCs/100 WBC 0.3 H Platelet Estimate Normal Hypochromasia Present A Anisocytosis 1+ A Microcytosis Present A Macrocytosis Present A Acanthocytes (Spur) 1+ A Smear Path Review PT 12.5 H INR 1.2 ABG pH ABG pCO2 ABG pO2 ABG HCO3 ABG Total CO2 ABG O2 Saturation ABG Base Excess Blood Gas Modality Inspired O2 Sodium 129 L Potassium 3.5 Chloride 93 L Carbon Dioxide 26 BUN 34 H D Creatinine 2.59 H Est GFR ( Amer) 22 L Est GFR (Non-Af Amer) 18 L BUN/Creatinine Ratio 13 Glucose 139 H POC Glucose Calculated Osmolality 278 L Calcium 8.6 Ionized Calcium Magnesium 1.7 Total Bilirubin 1.5 H Direct Bilirubin 1.3 H Indirect Bilirubin 0.2 AST 11 ALT 14 Alkaline Phosphatase 265 H Lactate Dehydrogenase Creatine Kinase Serum Total Protein 4.7 L Albumin 1.6 L Globulin 3.1 Albumin/Globulin Ratio 0.5 L Amylase Lipase 03/05/17 03/05/17 03:50 04:45 WBC RBC Hgb Hct MCV MCH MCHC RDW Plt Count MPV Seg Neutrophils % Lymphocytes % Monocytes % Neutrophils # Lymphocytes # Monocytes # Nucleated RBCs/100 WBC Platelet Estimate Hypochromasia Anisocytosis Microcytosis Macrocytosis Acanthocytes (Spur) Smear Path Review PT INR ABG pH 7.27 L ABG pCO2 54 H ABG pO2 138 H ABG HCO3 24.8 ABG Total CO2 26.5 H ABG O2 Saturation 99 H ABG Base Excess -2.3 L Blood Gas Modality VC+ Inspired O2 60 Sodium Potassium Chloride Carbon Dioxide BUN Creatinine Est GFR ( Amer) Est GFR (Non-Af Amer) BUN/Creatinine Ratio Glucose POC Glucose Calculated Osmolality Calcium Ionized Calcium 1.21 Magnesium Total Bilirubin Direct Bilirubin Indirect Bilirubin AST ALT Alkaline Phosphatase Lactate Dehydrogenase Creatine Kinase Serum Total Protein Albumin Globulin Albumin/Globulin Ratio Amylase Lipase Cultures: Cultures 02/26/17 12:41 Blood Culture - Preliminary Port System Gram Positive Rods 02/26/17 12:41 Blood Culture - Final Port System No growth. 02/26/17 10:27 Blood Culture - Final Peripheral Venipuncture No growth. 02/26/17 10:20 Blood Culture - Final Peripheral Venipuncture No growth. 02/26/17 15:30 Body Fluid Culture - Final Pleural Fluid 02/25/17 14:20 Sputum Culture - Final Sputum Kluyvera ascorbata Serology 02/27/17 02/26/17 02/25/17 Range/Units 16:20 15:30 11:00 Pleural Fluid Volume 15.0 mL Pleural Appearance Hazy A (Clear) Pleural pH 7.51 (No Ref Range) pH Units Pleural RBC 0.020 H (0.000 - 0.002) M/mcL Pleural Tot Nuc Cell 181 (0-1000) TNC/mcL Pleural Neutrophils 47.0 % Pleural Band Neuts 3.0 % Pleural Eosinophils Test Not Performed Pleural Basophils Test Not Performed Pleural Lymphocytes % 35.0 % Pleural Monocytes % 5.0 % Pleural Other Cells % 10.0 % Pleural Total Protein 2.6 (No Ref Range) g/dL Pleural Albumin 1.5 (No Ref Range) g/dL Pleural LDH 115 (No Ref Range) Units/L Pleural Glucose 171 (No Ref Range) mg/dL Pleural Amylase 21 (No Ref Range) Units/L Pleural Cholesterol 46 (No Ref Range) mg/dL Pleural Triglycerides 25 (No Ref Range) mg/dL Stl C. cayetanensis PCR Not detected (Not detect) Stool Rotavirus A PCR Not detected (Not detect) Stl Adenov F 40/41 PCR Not detected (Not detect) Stool Astrovirus (PCR) Not detected (Not detect) Stool Campylobacter PCR Not detected (Not detect) Stl C. diff Tox A/B PCR Not detected (Not detect) Stool Cryptosporidium PCR Not detected (Not detect) Stl Sh Tox Pr E STEC PCR Not detected (Not detect) Stool E coli O157 PCR Not detected (Not detect) Stl Enterotoxigenic E PCR Not detected (Not detect) Stool EPEC (PCR) Not detected (Not detect) Stool EAEC (PCR) Not detected (Not detect) Stl E. histolytica PCR Not detected (Not detect) Stool Giardia Lamblia PCR Not detected (Not detect) Stool Salmonella PCR Not detected (Not detect) Stool Sapovirus (PCR) Not detected (Not detect) Stl P. shigelloides PCR Not detected (Not detect) Stl Shigella/EIEC PCR Not detected (Not detect) St Y.enterocolitica PCR Not detected (Not detect) Stool Vibrio (PCR) Not detected (Not detect) Stl Vibrio cholerae PCR Not detected (Not detect) Stl Norovirus GI/GII PCR Not detected (Not detect) Stl GI Panel (PCR) Com See below Hep Bs Antigen Nonreactive (Nonreactive) Hep Bs Antibody 0.23 mIU/mL - Impressions Impressions Abdomen/Pelvis CT 03/04/17 18:00 IMPRESSION: Study is moderately motion compromised. Support apparatus appears to be in adequate position. Moderate bilateral pleural effusions left greater than right and associated dependent consolidation likely related to atelectasis and underlying pulmonary edema noted. Superimposed pneumonia cannot be excluded. Overall no great change from the comparison noted with slight and improvement in decrease in size of left-sided pleural effusion. New subacute rib fractures are noted on the left. Evaluation of the abdomen and pelvis is also motion compromised. Findings compatible with cirrhosis noted. Very mild prominence of the wall thickness of the colon felt to be artifactual in nature. Mild degree of underlying colitis cannot be completely excluded but is felt to be less likely. There is 3rd spacing noted which may be related to underlying cardiac, renal or hepatic dysfunction. Incidental note of acute fracture of the right hip. D/ 03/04/2017 19:35:59 Noé Ball MD / aleln Interpreting Provider: Noé Ball MD Chest CT 03/04/17 18:00 IMPRESSION: Study is moderately motion compromised. Support apparatus appears to be in adequate position. Moderate bilateral pleural effusions left greater than right and associated dependent consolidation likely related to atelectasis and underlying pulmonary edema noted. Superimposed pneumonia cannot be excluded. Overall no great change from the comparison noted with slight and improvement in decrease in size of left-sided pleural effusion. New subacute rib fractures are noted on the left. Evaluation of the abdomen and pelvis is also motion compromised. Findings compatible with cirrhosis noted. Very mild prominence of the wall thickness of the colon felt to be artifactual in nature. Mild degree of underlying colitis cannot be completely excluded but is felt to be less likely. There is 3rd spacing noted which may be related to underlying cardiac, renal or hepatic dysfunction. Incidental note of acute fracture of the right hip. D/ /04/2017 19:35:59 Noé Ball MD / allen Interpreting Provider: Noé Ball MD Head CT 03/04/17 18:00 IMPRESSION: Motion artifact limits evaluation. No definite acute intracranial abnormality. Fluid in the mastoid air cells bilaterally, left greater than right, which is new from 02/25/2017. This finding is nonspecific but can be seen with mastoiditis. Patchy hypodensities in the periventricular and subcortical white matter, which are nonspecific, but may represent chronic small vessel ischemic change. D/ : / 03/04/2017 19:39:56 David Hammond MD / allen Interpreting Provider: David Hammond MD Pelvis CT 03/04/17 18:00 IMPRESSION: Right greater trochanteric fracture, without significant displacement. Again, the age of this is indeterminate, as there appears to be some periosteal reaction, suggesting a subacute timeframe. On the indication, there is concern for infection. Although infection is not excluded by CT (or for that matter MRI) there is only a very small amount of articular fluid, with no significant joint effusion, making that less likely. D/ / Jacques Long MD / Jacques Long MD Interpreting Provider: Jacques Long MD Exam - Constitutional Vitals: Temp Pulse Resp BP Pulse Ox 98 F 85 20 99/47 100 03/05/17 04:00 03/05/17 06:00 03/05/17 06:00 03/05/17 06:00 03/05/17 06:00 I have reviewed last 24 hours of vitals. Exam: Gen.: This is a well-developed well-nourished 71-year-old female who is currently on mechanical ventilation responsive only to painful stimuli. HEENT: The head is normocephalic and atraumatic. Pupils are equally round and reactive to light. Normal external appearance of ears nose and eyes. Specifically normal external appearance of the mastoid processes bilaterally. The bilateral external auditory canals of a normal appearance of the exception of some excess cerumen. Tympanic membranes are pearly hall with coronal light and landmarks visible bilaterally. No bulging of the membranes noted. Moist mucous membranes. There is a endotracheal tube and orogastric tube in place. Neck is supple without mass or thyromegaly. I noted no cervical submandibular or supraclavicular lymphadenopathy palpable on exam. Heart: The heart has a regular rate and rhythm without murmurs rubs or gallops. No JVD. Lungs: Clear to auscultation bilaterally. The chest wall extremities symmetrically. Diminished at the bases bilaterally. Abdomen: The abdomen is soft, nondistended, nontender to palpation. Bowel sounds are present but sluggish. Does not appear to have any tenderness or response during palpation. No organomegaly, no bruits. Musculoskeletal: Grossly normal for age no gross deformities noted. Spine: No obvious deformities noted. Extremities: There is no clubbing present. She does have a 2+ pitting edema up to the level of the carrera bilaterally. She additionally has some cyanosis of the second third and fourth toes bilaterally. Pulses are able to be found with Doppler. Integument: She does have a decubitus ulcer on her sacrum. I would states this is unstageable as there is a large eschar overlying the wound. It is approximately is approximately 10 x 12 cm. I did not note any tunneling. Did not detect any foul odors. There is no purulent discharge from the wound. Lines: She does have a left temporary hemodialysis catheter tunneled in the left upper chest. She also has a right central venous catheter in the femoral vein. - Stroke Is the patient on any antithrombotics?: Yes Are there any contradictions to antithrombotics?: No Contraindication Antithromb by Day Two: Not Indicated - Due to Bleeding Disorder or Risk of Bleeding (Coagulapathy with elevated INR) - VTE Reasons for not Prescribing Prophylaxis: Not indicated-Anticoagulated or INR therapeutic - AMI Reason for No Aspirin at Discharge: Drug treatment not indicated Consult Discharge Plan - Plan Referrals: Henrry Mccullough MD [Primary Care Provider] - - Attending Attestation I examined this patient and my medical decision-making was reviewed with the Resident Physician. I agree with the documented findings, disposition and treatment plan as described except to the extent set forth below.
--- NOTE | 2017-03-05 06:47 | Pulmonology Progress Note ---
<Chester Sosa - Last Filed: 03/05/17 08:25> Date of Encounter: 03/05/17 Time of Encounter: 06:46 Assessment and Plan (1) Acute and chronic respiratory failure Current Visit: No Status: Acute Neuropsych: She remains encephalopathic but this appears improved. She has been off all sedation for approximately 72 hours and she will withdrawal to pain in her feet and open her eyes to verbal stimuli however she will not follow commands. Likely multifactorial in the setting of septic shock, chronic renal failure, and cirrhosis. We will continue to hold sedating medications and continue monitor patient's mental status. Repeat CT of the head was unremarkable. Pulm: Patient showed a mild metabolic acidosis with adequate oxygenation. Will continue with respiratory rate to 20 and PEEP to 10 for alveolar recruitment. Cards: History of underlying atrial fibrillation. Currently rate controlled. Patient was on Coumadin on presentation, this was switched to heparin as the patient's critical illness progressed. Over the weekend her INR became acutely elevated as high as 8.3. Patient received 5 mg of vitamin K. INR is 1.2 today and was 1.2 yesterday. We will proceed with mechanical DVT prophylaxis only at this time, consider restarting heparin. FEN-GI: Tube feeds have been held due to high residuals and absent bowel sounds. There continues to be very minimal bowel sounds. We will check residuals and resume if able. Continue Protonix for stress ulcer prophylaxis. Renal: End-stage renal disease with regular scheduled dialysis Saturday, Saturday , Saturday. Patient underwent dialysis yesterday with 600 mL of fluid removal. Further dialysis plan per nephrology. ID: Patient remains in septic shock however the source remains elusive at this time. Blood cultures were redrawn and pending, and CT scan was unremarkable for any obvious source of infection. Her strength infection panel was negative. White count has slightly decreased today. Infectious disease is following and we appreciate the recommendations. Heme/Onc: Hemoglobin is stable at 8.7. No evidence of active bleeding despite acutely elevated INR weekend. Continue with mechanical DVT prophylaxis at this time, considering restarting heparin drip for anticoagulation the setting of A. fib. Endo: Blood sugars under good control, continue sliding scale insulin. Integ/MSK: Patient has a stage II decubitus ulcer. Does not appear to be acutely infected. Continue skin care per ICU protocol. Patient has cyanosis of the middle 3 toes on the left and the second and fourth toe on the right. Possible extreme vasoconstriction setting of multiple pressor use or thromboembolic disease indicative of blue toe syndrome is also a concern. Arterial Doppler ultrasounds have been ordered and are pending. CODE: DNR CCA. Patient continues to have a poor prognosis. Continually reassess with family to determine long-term goals of care. Qualifiers: Respiratory failure complication: hypercapnia Qualified Code(s): J96.22 - Acute and chronic respiratory failure with hypercapnia (2) Septic shock Current Visit: Yes Status: Acute (3) Acute encephalopathy Current Visit: No Status: Acute (4) Cirrhosis Current Visit: No Status: Chronic Qualifiers: Hepatic cirrhosis type: other cirrhosis Qualified Code(s): K74.69 - Other cirrhosis of liver (5) DM (diabetes mellitus), type 2 Current Visit: No Status: Chronic 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 Chronic kidney disease stage: on chronic dialysis Qualified Code(s): E11.22 - Type 2 diabetes mellitus with diabetic chronic kidney disease; N18.6 - End stage renal disease; Z79.4 - group home (current) use of insulin; Z99.2 - Dependence on renal dialysis (6) Atrial fibrillation Current Visit: No Status: Chronic Qualifiers: Atrial fibrillation type: chronic Qualified Code(s): I48.2 - Chronic atrial fibrillation (7) Pressure ulcer Current Visit: Yes Status: Acute On the coccyx, midline, present on admission Qualifiers: Pressure ulcer location: other site Pressure ulcer stage: stage 2 Qualified Code(s): L89.892 - Pressure ulcer of other site, stage 2 Subjective Principal diagnosis: Encephalopathy Interval history: Patient seen and examined at bedside. Patient remains intubated. She is on no sedation and she will withdraw to painful stimuli of her feet and she will open her eyes to verbal stimuli. No acute events overnight. Objective PUL Vital signs: Last Vital Signs Temp 98 F 03/05/17 04:00 Pulse 85 03/05/17 06:00 Resp 20 03/05/17 06:00 BP 99/47 03/05/17 06:00 Pulse Ox 100 03/05/17 06:00 General appearance: no acute distress ENT: oropharynx moist Effort: normal Auscultation: bilateral: diminished breath sounds Cardiovascular: irregular rhythm Gastrointestinal: hypoactive bowel sounds, soft, non-tender, non-distended Extremities: cyanosis (Present to second, third, and fourth toes on the left and second fourth toes on the right. Pedal pulses are present and strong bilaterally.), edema (1+) unable to assess due to mental status Ventilator Settings Ventilator Settings: Ventilator Settings, Last 8 Hours Ventilator Mode VC+ Ventilator Mode VC+ Ventilator Mode VC+ Ventilator Mode VC+ Ventilator Mode VC+ Ventilator Mode VC+ Ventilator Mode VC+ Ventilator Tidal Volume 350 Setting Ventilator Tidal Volume 350 Setting Ventilator Tidal Volume 350 Setting Ventilator Tidal Volume 350 Setting Ventilator Tidal Volume 350 Setting Ventilator Tidal Volume 350 Setting Ventilator Tidal Volume 350 Setting Ventilator Respiratory Rate 20 Setting Ventilator Respiratory Rate 20 Setting Ventilator Respiratory Rate 20 Setting Ventilator Respiratory Rate 20 Setting Ventilator Respiratory Rate 20 Setting Ventilator Respiratory Rate 20 Setting Ventilator Respiratory Rate 20 Setting Actual Respiratory Rate 21 Actual Respiratory Rate 20 Actual Respiratory Rate 20 Actual Respiratory Rate 21 Actual Respiratory Rate 20 Actual Respiratory Rate 20 Positive End Expiratory 10 Pressure Positive End Expiratory 10 Pressure Positive End Expiratory 10 Pressure Positive End Expiratory 10 Pressure Positive End Expiratory 10 Pressure Positive End Expiratory 10 Pressure Positive End Expiratory 10 Pressure Peak Inspiratory Airway 33 Pressure Peak Inspiratory Airway 27 Pressure Peak Inspiratory Airway 32 Pressure Peak Inspiratory Airway 27 Pressure Peak Inspiratory Airway 26 Pressure Peak Inspiratory Airway 29 Pressure Results - Laboratory Findings CBC and BMP: 03/05/17 03:50 03/05/17 03:50 ABG ABG pH 7.27 pH Units (7.32-7.45) L 03/05/17 04:45 ABG pCO2 54 mmHg (35-45) H 03/05/17 04:45 ABG pO2 138 mmHg (85-104) H 03/05/17 04:45 ABG O2 Saturation 99 % (95-98) H 03/05/17 04:45 PT/INR, D-dimer PT 12.5 Seconds (9.4-12.1) H 03/05/17 03:50 D-Dimer 874 ng/mLFEU (0-500) H 03/03/17 04:18 Abnormal lab findings: Abnormal lab results WBC 28.0 K/mcL (4.3-11.1) H 03/05/17 03:50 Hgb 8.7 g/dL (11.5-15.4) L 03/05/17 03:50 Hct 30.2 % (35.3-44.9) L 03/05/17 03:50 MCV 78.0 fL (83.0-100.0) L 03/05/17 03:50 MCH 22.5 pg (28.0-33.3) L 03/05/17 03:50 MCHC 28.8 g/dL (31.6-35.5) L 03/05/17 03:50 RDW 21.1 % (11.5-14.5) H 03/05/17 03:50 Band Neutrophils % 28.0 % (0-4) H 03/04/17 04:54 Neutrophils # 26.3 K/mcL (1.6-8.9) H 03/05/17 03:50 Nucleated RBCs/100 WBC 0.3 /100 WBC (0) H 03/05/17 03:50 Toxic Granulation Present (Not Present) A 03/03/17 03:15 Immature Plt Fraction 1.0 % (1.1-6.1) L 02/25/17 07:11 Polychromasia 1+ (Not Present) A 03/02/17 08:10 Hypochromasia Present (Not Present) A 03/05/17 03:50 Poikilocytosis 1+ (Not Present) A 03/02/17 08:10 Basophilic Stippling 1+ (Not Present) A 02/25/17 07:11 Anisocytosis 1+ (Not Present) A 03/05/17 03:50 Microcytosis Present (Not Present) A 03/05/17 03:50 Macrocytosis Present (Not Present) A 03/05/17 03:50 Acanthocytes (Spur) 1+ (Not Present) A 03/05/17 03:50 PT 12.5 Seconds (9.4-12.1) H 03/05/17 03:50 APTT 110.3 Seconds (26.0-36.0) H* 03/01/17 04:10 Fibrinogen 482 mg/dL (169-393) H 03/03/17 04:18 D-Dimer 874 ng/mLFEU (0-500) H 03/03/17 04:18 Heparin Anti-Xa, Unfract 0.01 IU/mL (0.30-0.70) L 03/01/17 04:10 ABG pH 7.27 pH Units (7.32-7.45) L 03/05/17 04:45 ABG pCO2 54 mmHg (35-45) H 03/05/17 04:45 ABG pO2 138 mmHg (85-104) H 03/05/17 04:45 ABG Total CO2 26.5 mEq/L (20-26) H 03/05/17 04:45 ABG O2 Saturation 99 % (95-98) H 03/05/17 04:45 ABG Base Excess -2.3 mEq/L (-2.0 to 3.0) L 03/05/17 04:45 VBG pH 7.08 pH Units (7.32-7.42) L* 02/25/17 05:40 VBG pCO2 92 mmHg (41-51) H 02/25/17 05:40 VBG pO2 67 mmHg (25-40) H 02/25/17 05:40 VBG HCO3 27.3 mEq/L (21-27) H 02/25/17 05:40 Sodium 129 mEq/L (136-145) L 03/05/17 03:50 Chloride 93 mEq/L (98-109) L 03/05/17 03:50 BUN 34 mg/dL (7-20) H D 03/05/17 03:50 Creatinine 2.59 mg/dL (0.57-1.11) H 03/05/17 03:50 Est GFR ( Amer) 22 (> 60) L 03/05/17 03:50 Est GFR (Non-Af Amer) 18 (> 60) L 03/05/17 03:50 Glucose 139 mg/dL (70-99) H 03/05/17 03:50 POC Glucose 118 (58-89) H 03/04/17 23:42 Calculated Osmolality 278 (280-300) L 03/05/17 03:50 Total Bilirubin 1.5 mg/dL (0.2-1.2) H 03/05/17 03:50 Direct Bilirubin 1.3 mg/dL (0.0-0.5) H 03/05/17 03:50 Alkaline Phosphatase 265 Units/L (38-126) H 03/05/17 03:50 B-Natriuretic Peptide 2203 pg/mL (0-100) H 02/25/17 07:11 Serum Total Protein 4.7 g/dL (6.0-8.3) L 03/05/17 03:50 Albumin 1.6 g/dL (3.5-5.0) L 03/05/17 03:50 Albumin/Globulin Ratio 0.5 (1.1-2.2) L 03/05/17 03:50 Amylase 16 Units/L (25-125) L 03/04/17 15:00 Ur Specimen Adequacy See below A 02/25/17 06:28 Urine Clarity Turbid (Clear) A 02/25/17 06:28 Urine Protein >=300 mg/dL (Neg-Trace) H 02/25/17 06:28 Urine Ketones Trace mg/dL (Negative) H 02/25/17 06:28 Urine Blood Large (Negative) H 02/25/17 06:28 Ur Leukocyte Esterase Large (Negative) H 02/25/17 06:28 Ur Culture Indicated? YES (NO) A 02/25/17 06:28 Pleural Appearance Hazy (Clear) A 02/26/17 15:30 Pleural RBC 0.020 M/mcL (0.000-0.002) H 02/26/17 15:30 - Microbiology Findings Microbiology Findings: Microbiology, Last 48 Hours 02/26/17 12:41 Blood Culture - Preliminary Port System Gram Positive Rods 02/26/17 12:41 Blood Culture - Final Port System No growth. 02/26/17 10:27 Blood Culture - Final Peripheral Venipuncture No growth. 02/26/17 10:20 Blood Culture - Final Peripheral Venipuncture No growth. - Clinical Findings Intake & Output: Intake & Output 03/04/17 03/04/17 03/05/17 15:59 23:59 07:59 Intake Total 250.6 / 250.6 2193 / 2193 256 / 256 Output Total 850 / 850 Balance 243.6 / 243.6 2193 / 4 -594 / -594 - Stroke Is the patient on any antithrombotics?: No Contraindication Antithromb by Day Two: Not Indicated - Due to Bleeding Disorder or Risk of Bleeding (Coagulapathy with elevated INR) Consult Discharge Plan - Plan Referrals: Henrry Mccullough MD [Primary Care Provider] - <Chadwick Rojas W - Last Filed: 03/05/17 12:23> Date of Encounter: 03/05/17 Objective PUL Vital signs: Last Vital Signs Temp 97.7 F 03/05/17 07:30 Pulse 86 03/05/17 09:00 Resp 19 03/05/17 11:32 BP 108/60 03/05/17 11:32 Pulse Ox 100 03/05/17 11:32 Ventilator Settings Ventilator Settings: Ventilator Settings, Last 8 Hours Ventilator Mode VC+ Ventilator Mode VC+ Ventilator Mode VC+ Ventilator Mode VC+ Ventilator Mode VC+ Ventilator Mode VC+ Ventilator Mode VC+ Ventilator Mode VC+ Ventilator Tidal Volume 350 Setting Ventilator Tidal Volume 350 Setting Ventilator Tidal Volume 350 Setting Ventilator Tidal Volume 350 Setting Ventilator Tidal Volume 350 Setting Ventilator Tidal Volume 350 Setting Ventilator Tidal Volume 350 Setting Ventilator Tidal Volume 350 Setting Ventilator Respiratory Rate 20 Setting Ventilator Respiratory Rate 20 Setting Ventilator Respiratory Rate 20 Setting Ventilator Respiratory Rate 20 Setting Ventilator Respiratory Rate 20 Setting Ventilator Respiratory Rate 20 Setting Ventilator Respiratory Rate 20 Setting Ventilator Respiratory Rate 20 Setting Actual Respiratory Rate 19 Actual Respiratory Rate 17 Actual Respiratory Rate 21 Actual Respiratory Rate 21 Positive End Expiratory 10 Pressure Positive End Expiratory 10 Pressure Positive End Expiratory 10 Pressure Positive End Expiratory 10 Pressure Positive End Expiratory 10 Pressure Positive End Expiratory 10 Pressure Positive End Expiratory 10 Pressure Positive End Expiratory 10 Pressure Peak Inspiratory Airway 28 Pressure Peak Inspiratory Airway 33 Pressure Peak Inspiratory Airway 33 Pressure Peak Inspiratory Airway 33 Pressure Results - Laboratory Findings CBC and BMP: 03/05/17 03:50 03/05/17 03:50 ABG ABG pH 7.27 pH Units (7.32-7.45) L 03/05/17 04:45 ABG pCO2 54 mmHg (35-45) H 03/05/17 04:45 ABG pO2 138 mmHg (85-104) H 03/05/17 04:45 ABG O2 Saturation 99 % (95-98) H 03/05/17 04:45 PT/INR, D-dimer PT 12.5 Seconds (9.4-12.1) H 03/05/17 03:50 D-Dimer 874 ng/mLFEU (0-500) H 03/03/17 04:18 Abnormal lab findings: Abnormal lab results WBC 28.0 K/mcL (4.3-11.1) H 03/05/17 03:50 Hgb 8.7 g/dL (11.5-15.4) L 03/05/17 03:50 Hct 30.2 % (35.3-44.9) L 03/05/17 03:50 MCV 78.0 fL (83.0-100.0) L 03/05/17 03:50 MCH 22.5 pg (28.0-33.3) L 03/05/17 03:50 MCHC 28.8 g/dL (31.6-35.5) L 03/05/17 03:50 RDW 21.1 % (11.5-14.5) H 03/05/17 03:50 Band Neutrophils % 28.0 % (0-4) H 03/04/17 04:54 Neutrophils # 26.3 K/mcL (1.6-8.9) H 03/05/17 03:50 Nucleated RBCs/100 WBC 0.3 /100 WBC (0) H 03/05/17 03:50 Toxic Granulation Present (Not Present) A 03/03/17 03:15 Immature Plt Fraction 1.0 % (1.1-6.1) L 02/25/17 07:11 Polychromasia 1+ (Not Present) A 03/02/17 08:10 Hypochromasia Present (Not Present) A 03/05/17 03:50 Poikilocytosis 1+ (Not Present) A 03/02/17 08:10 Basophilic Stippling 1+ (Not Present) A 02/25/17 07:11 Anisocytosis 1+ (Not Present) A 03/05/17 03:50 Microcytosis Present (Not Present) A 03/05/17 03:50 Macrocytosis Present (Not Present) A 03/05/17 03:50 Acanthocytes (Spur) 1+ (Not Present) A 03/05/17 03:50 PT 12.5 Seconds (9.4-12.1) H 03/05/17 03:50 APTT 110.3 Seconds (26.0-36.0) H* 03/01/17 04:10 Fibrinogen 482 mg/dL (169-393) H 03/03/17 04:18 D-Dimer 874 ng/mLFEU (0-500) H 03/03/17 04:18 Heparin Anti-Xa, Unfract 0.01 IU/mL (0.30-0.70) L 03/01/17 04:10 ABG pH 7.27 pH Units (7.32-7.45) L 03/05/17 04:45 ABG pCO2 54 mmHg (35-45) H 03/05/17 04:45 ABG pO2 138 mmHg (85-104) H 03/05/17 04:45 ABG Total CO2 26.5 mEq/L (20-26) H 03/05/17 04:45 ABG O2 Saturation 99 % (95-98) H 03/05/17 04:45 ABG Base Excess -2.3 mEq/L (-2.0 to 3.0) L 03/05/17 04:45 VBG pH 7.08 pH Units (7.32-7.42) L* 02/25/17 05:40 VBG pCO2 92 mmHg (41-51) H 02/25/17 05:40 VBG pO2 67 mmHg (25-40) H 02/25/17 05:40 VBG HCO3 27.3 mEq/L (21-27) H 02/25/17 05:40 Sodium 129 mEq/L (136-145) L 03/05/17 03:50 Chloride 93 mEq/L (98-109) L 03/05/17 03:50 BUN 34 mg/dL (7-20) H D 03/05/17 03:50 Creatinine 2.59 mg/dL (0.57-1.11) H 03/05/17 03:50 Est GFR ( Amer) 22 (> 60) L 03/05/17 03:50 Est GFR (Non-Af Amer) 18 (> 60) L 03/05/17 03:50 Glucose 139 mg/dL (70-99) H 03/05/17 03:50 POC Glucose 118 (58-89) H 03/04/17 23:42 Calculated Osmolality 278 (280-300) L 03/05/17 03:50 Total Bilirubin 1.5 mg/dL (0.2-1.2) H 03/05/17 03:50 Direct Bilirubin 1.3 mg/dL (0.0-0.5) H 03/05/17 03:50 Alkaline Phosphatase 265 Units/L (38-126) H 03/05/17 03:50 B-Natriuretic Peptide 2203 pg/mL (0-100) H 02/25/17 07:11 Serum Total Protein 4.7 g/dL (6.0-8.3) L 03/05/17 03:50 Albumin 1.6 g/dL (3.5-5.0) L 03/05/17 03:50 Albumin/Globulin Ratio 0.5 (1.1-2.2) L 03/05/17 03:50 Amylase 16 Units/L (25-125) L 03/04/17 15:00 Ur Specimen Adequacy See below A 02/25/17 06:28 Urine Clarity Turbid (Clear) A 02/25/17 06:28 Urine Protein >=300 mg/dL (Neg-Trace) H 02/25/17 06:28 Urine Ketones Trace mg/dL (Negative) H 02/25/17 06:28 Urine Blood Large (Negative) H 02/25/17 06:28 Ur Leukocyte Esterase Large (Negative) H 02/25/17 06:28 Ur Culture Indicated? YES (NO) A 02/25/17 06:28 Pleural Appearance Hazy (Clear) A 02/26/17 15:30 Pleural RBC 0.020 M/mcL (0.000-0.002) H 02/26/17 15:30 - Microbiology Findings Microbiology Findings: Microbiology, Last 48 Hours 02/26/17 12:41 Blood Culture - Preliminary Port System Gram Positive Rods 02/26/17 12:41 Blood Culture - Final Port System No growth. 02/26/17 10:27 Blood Culture - Final Peripheral Venipuncture No growth. 02/26/17 10:20 Blood Culture - Final Peripheral Venipuncture No growth. - Clinical Findings Intake & Output: Intake & Output 03/04/17 03/05/17 03/05/17 23:59 07:59 15:59 Intake Total 2194 / 2194 256 / 256 400 / 400 Output Total 850 / 850 Balance 2194 / 2194 -594 / -594 400 / 400 - Attending Attestation I examined this patient and my medical decision-making was reviewed with the Resident Physician. I agree with the documented findings, disposition and treatment plan as described except to the extent set forth below. Patient seen and examined at bedside Labs, radiology, chart personally reviewed. All lines examined without evidence of infection. Management was reviewed during multidisciplinary critical care rounds. Neuropsych: Remains encephalopathic which is secondary to sepsis ESRD and cirrhosis we continue to avoid [employer] depressant medications and will add lactulose to regimen; uncontrasted head CT done yesterday without acute process Pulm: Hypoxic hypercarbic respiratory failure improved oxygenation and ventilation from yesterday; we will decrease her FiO2. CT scan notable for bilateral atelectasis with left sided pleural effusion which is stable from prior no clear evidence of pneumonia Cards: Distributive shock weaning vasopressors, atrial fibrillation rate controlled; she has evidence of distal ischemia in his toes or purpura this appears to be improved ABIs done yesterday were grossly normal pending official read can consider vascular surgery consult based upon final result I suspect this is micro-angiopathic process related to severe sepsis and hypoperfusion from shock FEN-GI: GI prophylaxis given we will start trophic enteral nutrition Renal: ESRD status post dialysis yesterday we will continue to monitor this and replace electrolytes per protocol ID: WBC count is trending down she is being treated for VRE as well as gram- negative infections along with anaerobic infections [place] CT scan yesterday unremarkable for clear source of infection she does have a sacral decubitus ulcer ID is following this patient and we will follow up their recommendations from today repeat cultures pending Heme/Onc: H&H stable platelets are stable restart therapeutic heparin dosing for stroke prevention with underlying atrial fibrillation we will check CBC twice daily Endo: Glucose monitored Integ/MSK: Continue ICU for critical to prevent skin ulcers she does have a chronic decubitus ulcer which is purulent and foul-smelling will have surgery, and on this if there is any surgical and intervention i.e. debridement that would be beneficial in this situation CODE: DNR ACC
[2017-03-05 08:05] LABS: Adenovirus Not Detected (Not Detect); Coronavirus 229E Not Detected (Not Detect); Coronavirus HKU1 Not Detected (Not Detect); Coronavirus NL63 Not Detected (Not Detect); Coronavirus OC43 Not Detected (Not Detect); Human Metapneumovirus Not Detected (Not Detect); Human Rhinovirus/Enterovirus Not Detected (Not Detect); Influenza A Subtype 2009 H1 Not Detected (Not Detect); Influenza A Untypeable Not Detected (Not Detect); Influenza B Not Detected (Not Detect); Parainfluenza Virus 1 Not Detected (Not Detect); Parainfluenza Virus 2 Not Detected (Not Detect)
[2017-03-05 08:06] LABS: Bordetella Pertussis Not Detected (Not Detect); Chlamydophila pneumoniae Not Detected (Not Detect); Mycoplasma pneumoniae Not Detected (Not Detect); Parainfluenza Virus 3 Not Detected (Not Detect); Parainfluenza Virus 4 Not Detected (Not Detect); Respiratory Syncytial Virus Not Detected (Not Detect)
--- NOTE | 2017-03-05 08:12 | Nephrology Progress Note ---
Date of Encounter: 03/05/17 Time of Encounter: 08:11 - Assessment and Plan (1) End-stage renal disease Current Visit: Yes Status: Acute The patient remains critically ill. She has respiratory failure and is ventilator dependent. Her mental status is not improved despite discontinuing the sedation. She will continue to be supported with dialysis as long as she remains hemodynamically stable. (2) Chronic diastolic (congestive) heart failure Current Visit: No Status: Acute (3) Acute and chronic respiratory failure Current Visit: No Status: Acute Qualifiers: Respiratory failure complication: hypercapnia Qualified Code(s): J96.22 - Acute and chronic respiratory failure with hypercapnia (4) Atrial fibrillation Current Visit: No Status: Chronic Qualifiers: Atrial fibrillation type: chronic Qualified Code(s): I48.2 - Chronic atrial fibrillation Subjective Principal diagnosis: Encephalopathy Interval history: The patient remained poorly responsive on the ventilator. She status post dialysis yesterday. Her sedation has been discontinued. Objective - Vital Signs Vital signs: Vital Signs Temp Pulse Resp BP Pulse Ox 03/05/17 07:42 79 03/05/17 07:30 97.7 F 21 97/44 100 03/05/17 07:00 81 22 97/44 100 03/05/17 06:00 85 20 99/47 100 03/05/17 05:46 21 99/49 100 03/05/17 05:00 82 22 106/48 100 03/05/17 04:00 98 F 79 20 100/43 100 03/05/17 03:47 20 114/57 98 03/05/17 03:00 75 20 103/57 100 03/05/17 02:00 76 20 115/64 100 03/05/17 01:22 21 107/46 100 03/05/17 01:00 80 20 113/55 100 03/05/17 00:55 97.5 F L 18 116/52 03/05/17 00:50 104/53 03/05/17 00:35 103/49 03/05/17 00:20 101/49 03/05/17 00:05 99/48 03/05/17 00:00 97.3 F L 76 20 110/54 100 03/04/17 23:50 110/54 03/04/17 23:39 20 113/49 100 03/04/17 23:30 110/55 03/04/17 23:20 110/50 03/04/17 23:05 109/48 03/04/17 23:00 70 20 110/48 100 03/04/17 22:50 97.1 F L 18 126/52 03/04/17 22:00 63 20 104/50 100 03/04/17 21:31 20 74/39 100 03/04/17 21:00 63 20 94/46 100 03/04/17 20:00 98.3 F 68 20 99/52 100 03/04/17 19:49 20 127/54 100 03/04/17 19:47 98.3 F 03/04/17 19:00 66 21 127/54 100 03/04/17 18:43 20 104/51 100 03/04/17 18:00 67 20 106/47 03/04/17 17:00 64 20 104/51 03/04/17 16:00 76 20 128/55 03/04/17 15:55 20 121/54 99 03/04/17 15:30 98.2 F 03/04/17 14:12 20 128/55 96 03/04/17 14:00 72 20 121/54 100 03/04/17 13:00 76 20 111/53 100 03/04/17 12:00 98.7 F 71 20 113/54 100 03/04/17 11:00 86 21 114/54 95 03/04/17 10:39 104/54 03/04/17 10:00 96 19 111/49 94 03/04/17 09:00 92 20 110/46 93 03/04/17 08:19 19 92 Intake and Output 03/04/17 03/05/17 03/05/17 23:59 07:59 15:59 Intake Total 2194 / 2194 256 / 256 Output Total 850 / 850 Balance 2194 / 2194 -594 / -594 Intake: IV Fluids 634 / 634 256 / 256 Levophed 8 MG In Dextrose 30 / 30 56 / 56 5% 250 ML @ 5 MCG/MIN 9. 67 mls/hr IVC CONT PRN Rx #:[id number] Azactam 500 MG In 100 / 100 100 / 100 Dextrose 5% 100 ML @ 200 mls/hr IVPB Q8H CANDE Rx#: [id number] Zyvox Premix 600mg/300mL 300 / 300 600 mg In 300 ml @ 150 mls/hr IVPB Q12HR CANDE Rx# :[id number] Magnesium Sulfate 2 GM In 104 / 104 Dextrose 5% 100 ML @ 100 mls/hr IVPB ONCE ONE Rx# :[id number] Flagyl Premix 500 MG/100 100 / 100 100 / 100 ML 500 mg In 100 ml @ 100 mls/hr IVPB Q8HR CANDE Rx# :[id number] Oral 0 / 0 Other 960 / 960 Intake, Rinseback and 600 / 600 Flushes Output: Urine 0 / 0 Total Dialysis (HD) 600 / 600 Output Gastric Drainage 250 / 250 Other: Stool Size Moderate Stool Consistency liquid Stool Characteristics Mucoid Stool Color Brown Green # Bowel Movements 1 Blood Glucose* 137 182 Hemodialysis Net Fluid 220 0 Removed (mL) - General Appearance Exam: Patient is on the ventilator. Blood pressure 97/44. Lungs coarse breath sounds. Heart regular rate and rhythm. Abdomen is benign. There is lower extremity swelling. There is ischemic changes of the toes on both feet. There is a mature fistula in the left upper extremity in a tunnel dialysis catheter in the right chest. - Lab 03/05/17 03:50 03/05/17 03:50 Most recent lab results ABG pH 7.27 pH Units (7.32-7.45) L 03/05/17 04:45 ABG pCO2 54 mmHg (35-45) H 03/05/17 04:45 ABG pO2 138 mmHg (85-104) H 03/05/17 04:45 ABG HCO3 24.8 mEQ/L (21-27) 03/05/17 04:45 ABG O2 Saturation 99 % (95-98) H 03/05/17 04:45 Calcium 8.6 mg/dL (8.6-10.8) 03/05/17 03:50 Phosphorus 4.6 mg/dL (2.3-4.7) 03/02/17 08:10 Magnesium 1.7 mg/dL (1.6-2.6) 03/05/17 03:50 - Stroke Is the patient on any antithrombotics?: Yes Contraindication Antithromb by Day Two: Not Indicated - Due to Bleeding Disorder or Risk of Bleeding (Coagulapathy with elevated INR) Consult Discharge Plan - Plan Referrals: Henrry Mccullough MD [Primary Care Provider] -
[2017-03-05] MEDS: Chlorhexidine Rinse 15 ML MOUTHWASH MM SCH ×2 (08:54→20:01)
[2017-03-05] MEDS: Pantoprazole 40 MG VIAL IVPB SCH (08:54)
[2017-03-05] MEDS: Folic Acid 1 MG TABLET PO SCH (08:55)
[2017-03-05] MEDS: Aspirin 81 MG TAB.CHEW PO SCH (08:55)
[2017-03-05] MEDS ORDERED: *HR* Heparin 5,000 UNIT/ML VIAL IVP ONE (10:44)
[2017-03-05] MEDS ORDERED: *HR* Heparin 5,000 UNIT/ML VIAL IVP PRN ×2 (10:44)
[2017-03-05] MEDS: FentaNYL (PF) 1,000 MCG in 0.9 % Sodium Chloride 80 ML IVC SCH (11:25)
[2017-03-05] MEDS: Heparin 25,000 UNIT/500 ML D5W 25,000 UNIT/500 ML MLS IVC SCH (11:25)
--- NOTE | 2017-03-05 12:04 | Arterial Study Report ---
LE Arterial Physiologic Study Patient Name:Jaimee Rodriguez Order Number:[id number] Procedure Date:03/04/2017 Date:4Age:71 yrs Gender:Female Rt.BP:134 / mmHgHeart Rate: Location:[facility] Room #: IC01 Underwriting Support Manager:Veronique Herring BRUCE Referring MD:DO Jojo Randle MD:Bhupinder Montoya MD , FACS Primary Indications:Cyanosis, Cool extremities Risk Factors Yes/No Diabetes Yes Hypertension Yes Hypercholesterolemia Yes Impressions: Findings LE Arterial Physiologic Exam: PVR: Right: The PVR waveforms are normal in the right ankle. Left: The PVR waveforms are normal in the left ankle. Prior Study: No prior study available for comparison. Segmental Pressures Side Location Pressure Index Result Right Posterior Tibial 138 1.03 Normal Right Dorsalis Pedis 124 0.93 Normal Left Posterior Tibial 155 1.16 Normal Left Dorsalis Pedis 139 1.04 Normal Ankle Brachial Index Right Systolic Diastolic ELAYNE Brachial 134 1.03 Dorsalis Pedis 124 0.93 Posterior Tibial 138 1.03 Left Systolic Diastolic ELAYNE Brachial 1.16 Dorsalis Pedis 139 1.04 Posterior Tibial 1.16 Updated by amay on 03/04/2017 4:56:26 PM with Status of Final Bhupinder Montoya MD electronically signed on 03/05/2017 12:00:05 PM with status of Final
[2017-03-05] MEDS: Vasopressin 40 UNIT in D5% in Water 100 ML IV SCH (16:42)
--- NOTE | 2017-03-05 17:00 | General Surgery Consult Note ---
Date of Encounter: 03/05/17 Time of Encounter: 14:00 History of Present Illness Consult date: 03/05/17 Requesting physician: Chester Sosa History of present illness: 71 yo admitted 02/25/17 admitted after presenting to the [facility] with significant hypercapnia considered to be multifactorial in the setting of opioid use, hepatic cirrhosis and end-stage renal disease. Hepatic encephalopathy was also possible as the patient presented with an elevated ammonia level. Patient has had a prolonged severe illness requiring intensive care, including but not exclusive of pressors, mechanical ventilation, and dialysis. As a result of the severe illness the patient has had a progressive sacral decubitus. Surgical consultation was placed to determine whether intervention such as debridement is possible. 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 Surgical history: Information obtained from the chart - cholecystectomy, hysterectomy Allergies: Permission obtained from the chart - Ceftriaxone, ciprofloxacin, sulfamethoxazole/trimethoprim, Roz[place] allergy On physical examination: Elderly patient, intubated, mechanically ventilated, on pressors, unresponsive to verbal stimuli. No detected pupillary response but nursing reports very sluggish response. Extensive ecchymosis involving both upper extremities. Left upper extremity is significantly edematous Lungs: No independent respirations; lungs with symmetrical aeration. Cardiac: Irregular rate, soft 2/6 systolic ejection murmur Abdomen: Obese without obvious tenderness, no obvious intra-abdominal masses. Sacrum: Large full-thickness, necrotic wound. Extremities: Bilateral lower extremities edematous; multiple cyanotic/ ischemic toes, 6 out of 10. Impression: 71 yo, unresponsive to verbal stimulus with likely persistent encephalopathy, intubated and mechanically ventilated, on pressors referred for surgical assessment of large, full thickness, necrotic debitus ulcer. Patient is not a candidate for surgical debridement due to the enumerated multiple medical co morbidities. The patient was seen in conjunction with Wound Care. Will trial Santyl. The situation was discussed with family. Past Med Surg Social Fam HX - Past Medical History Medical history: arthritis, atrial fibrillation, cirrhosis, CHF, COPD, diabetes , GERD, hyperlipidemia, hypertension, renal disease, other Psychiatric history: anxiety, panic disorder - Past Surgical History Surgical History: cholecystectomy, hysterectomy - Social History Smoking Status: Never smoker Smokeless Tobacco Status: No Alcohol use: none Drug use: none - Family History Mother History Unknown: Yes Living Status: Hx Family Cardiac Disorders: Yes Hx Family GI Disorders: Yes Hx Family Endocrine Disorder: Yes Father Living Status: Hx Family Cardiac Disorders: Yes Hx Family Cancer: Yes Sister Living Status: Still Living Hx Family Cancer: Yes (Breast Cancer, age 40's) Hx Family Endocrine Disorder: Yes (diabetes mellitus) Brother Living Status: Still Living Hx Family Cardiac Disorders: No Hx Family Respiratory Disorders: No Hx Family Cancer: No Hx Family GI Disorders: No Hx Family Endocrine Disorder: Yes Hx Family Neuromuscular Disorders: No Hx Family Neurologic Disorders: No Hx Family HEENT Disorders: No Hx Family Autoimmune Disorders: No Medications and Allergies Metoprolol [Lopressor] 12.5 mg PO HS 08/14/15 [History] Sertraline [Zoloft] 150 mg PO DAILY 08/14/15 [History] Sucralfate [Carafate] 2 gm PO BID 08/14/15 [History] Lactulose 10 gm PO QID 06/24/16 [History] Aspirin 81 mg PO DAILY 07/11/16 [History] Fluticasone/Vilanterol [Breo Ellipta 100-25 Mcg INH] 1 puff IH DAILY 07/11/16 [ History] Pantoprazole Sodium [Protonix] 40 mg PO DAILY 07/11/16 [History] Diltiazem [Cardizem] 30 mg PO TID 09/20/16 [History] Gabapentin [Neurontin] 100 mg PO BID 09/20/16 [History] Sennosides [Senna] 17.2 mg PO DAILY 09/20/16 [History] Simethicone [Gas-X] 120 mg PO BID PRN 09/20/16 [History] Folic Acid 1 mg PO DAILY #30 tablet 12/03/16 [Rx] Ferrous Gluconate 324 mg PO TID 01/12/17 [History] Warfarin [Coumadin] 2 mg PO HS 01/12/17 [History] Amino Acids/Protein Hydrolys [Pro-Stat Awc Liquid] 30 ml PO BID 01/28/17 [ History] Ipratropium/Albuterol Neb [Duoneb] 3 ml IH Q6HR PRN 01/28/17 [History] Mupirocin [Bactroban Oint] 1 appl TP MOWEFR 01/28/17 [History] Insulin ASPART [Novolog Flexpen] 0 - 10 units SQ TID #1 MDD PER SLIDING SCALE 02/06/17 [Rx] Lidocaine Patch [Lidoderm 5% patch] 1 each TP DAILY #6 adh..patch 02/06/17 [Rx] OxyCODONE Immed Rel [Roxicodone 5 MG] 5 mg PO Q6HR PRN #16 tablet 02/06/17 [Rx] Gentamicin OPTH Soln 1 drop OP TID 02/25/17 [History] Metoprolol [Lopressor] 12.5 mg PO SUTUTHSA@0800 02/25/17 [History] Torsemide 50 mg PO DAILY 02/25/17 [History] Allergies ceftriaxone [From Rocephin] Allergy (Severe, Verified 02/25/17 05:02) Anaphylaxis Occured at [facility]. Required ICU transfer, intubation, and mechanical ventilation. ciprofloxacin [From Cipro] Allergy (Mild, Verified 02/25/17 05:02) Rash sulfamethoxazole [From Bactrim] Allergy (Verified 02/25/17 05:02) See Comments trimethoprim [From Bactrim] Allergy (Verified 02/25/17 05:02) See Comments piperacillin [From Zosyn] Adverse Reaction (Verified 02/25/17 18:25) See Comments unknown, per list from f tazobactam [From Zosyn] Adverse Reaction (Verified 02/25/17 18:25) See Comments unknown, per list from f rozeta Allergy (Uncoded 02/25/17 05:02) See Comments Review of Systems All systems PM: A 10-system review of systems was performed and is negative for pertinent findings except as documented above in the HPI. General Surgery Exam Initial Vital Signs Pulse Ox 94 02/25/17 05:02 Exam Initial Vital Signs Pulse Ox 94 02/25/17 05:02 Results - Labs 03/05/17 03:50 03/05/17 03:50 Abnormal lab results WBC 28.0 K/mcL (4.3-11.1) H 03/05/17 03:50 Hgb 8.7 g/dL (11.5-15.4) L 03/05/17 03:50 Hct 30.2 % (35.3-44.9) L 03/05/17 03:50 MCV 78.0 fL (83.0-100.0) L 03/05/17 03:50 MCH 22.5 pg (28.0-33.3) L 03/05/17 03:50 MCHC 28.8 g/dL (31.6-35.5) L 03/05/17 03:50 RDW 21.1 % (11.5-14.5) H 03/05/17 03:50 Band Neutrophils % 28.0 % (0-4) H 03/04/17 04:54 Neutrophils # 26.3 K/mcL (1.6-8.9) H 03/05/17 03:50 Nucleated RBCs/100 WBC 0.3 /100 WBC (0) H 03/05/17 03:50 Toxic Granulation Present (Not Present) A 03/03/17 03:15 Immature Plt Fraction 1.0 % (1.1-6.1) L 02/25/17 07:11 Polychromasia 1+ (Not Present) A 03/02/17 08:10 Hypochromasia Present (Not Present) A 03/05/17 03:50 Poikilocytosis 1+ (Not Present) A 03/02/17 08:10 Basophilic Stippling 1+ (Not Present) A 02/25/17 07:11 Anisocytosis 1+ (Not Present) A 03/05/17 03:50 Microcytosis Present (Not Present) A 03/05/17 03:50 Macrocytosis Present (Not Present) A 03/05/17 03:50 Acanthocytes (Spur) 1+ (Not Present) A 03/05/17 03:50 PT 12.5 Seconds (9.4-12.1) H 03/05/17 03:50 APTT 110.3 Seconds (26.0-36.0) H* 03/01/17 04:10 Fibrinogen 482 mg/dL (169-393) H 03/03/17 04:18 D-Dimer 874 ng/mLFEU (0-500) H 03/03/17 04:18 Heparin Anti-Xa, Unfract 0.01 IU/mL (0.30-0.70) L 03/01/17 04:10 ABG pH 7.27 pH Units (7.32-7.45) L 03/05/17 04:45 ABG pCO2 54 mmHg (35-45) H 03/05/17 04:45 ABG pO2 138 mmHg (85-104) H 03/05/17 04:45 ABG Total CO2 26.5 mEq/L (20-26) H 03/05/17 04:45 ABG O2 Saturation 99 % (95-98) H 03/05/17 04:45 ABG Base Excess -2.3 mEq/L (-2.0 to 3.0) L 03/05/17 04:45 VBG pH 7.08 pH Units (7.32-7.42) L* 02/25/17 05:40 VBG pCO2 92 mmHg (41-51) H 02/25/17 05:40 VBG pO2 67 mmHg (25-40) H 02/25/17 05:40 VBG HCO3 27.3 mEq/L (21-27) H 02/25/17 05:40 Sodium 129 mEq/L (136-145) L 03/05/17 03:50 Chloride 93 mEq/L (98-109) L 03/05/17 03:50 BUN 34 mg/dL (7-20) H D 03/05/17 03:50 Creatinine 2.59 mg/dL (0.57-1.11) H 03/05/17 03:50 Est GFR ( Amer) 22 (> 60) L 03/05/17 03:50 Est GFR (Non-Af Amer) 18 (> 60) L 03/05/17 03:50 Glucose 139 mg/dL (70-99) H 03/05/17 03:50 POC Glucose 118 (58-89) H 03/04/17 23:42 Calculated Osmolality 278 (280-300) L 03/05/17 03:50 Total Bilirubin 1.5 mg/dL (0.2-1.2) H 03/05/17 03:50 Direct Bilirubin 1.3 mg/dL (0.0-0.5) H 03/05/17 03:50 Alkaline Phosphatase 265 Units/L (38-126) H 03/05/17 03:50 B-Natriuretic Peptide 2203 pg/mL (0-100) H 02/25/17 07:11 Serum Total Protein 4.7 g/dL (6.0-8.3) L 03/05/17 03:50 Albumin 1.6 g/dL (3.5-5.0) L 03/05/17 03:50 Albumin/Globulin Ratio 0.5 (1.1-2.2) L 03/05/17 03:50 Amylase 16 Units/L (25-125) L 03/04/17 15:00 Ur Specimen Adequacy See below A 02/25/17 06:28 Urine Clarity Turbid (Clear) A 02/25/17 06:28 Urine Protein >=300 mg/dL (Neg-Trace) H 02/25/17 06:28 Urine Ketones Trace mg/dL (Negative) H 02/25/17 06:28 Urine Blood Large (Negative) H 02/25/17 06:28 Ur Leukocyte Esterase Large (Negative) H 02/25/17 06:28 Ur Culture Indicated? YES (NO) A 02/25/17 06:28 Pleural Appearance Hazy (Clear) A 02/26/17 15:30 Pleural RBC 0.020 M/mcL (0.000-0.002) H 02/26/17 15:30 Diabetes panel 03/05/17 Range/Units 03:50 Sodium 129 L (136-145) mEq/L Potassium 3.5 (3.5-4.5) mEq/L Chloride 93 L (98-109) mEq/L Carbon Dioxide 26 (19-29) mEq/L BUN 34 H D (7-20) mg/dL Creatinine 2.59 H (0.57-1.11) mg/dL Glucose 139 H (70-99) mg/dL Calcium 8.6 (8.6-10.8) mg/dL AST 11 (5-34) Units/L ALT 14 (0-55) Units/L Alkaline Phosphatase 265 H (38-126) Units/L Albumin 1.6 L (3.5-5.0) g/dL Calcium panel 03/05/17 Range/Units 03:50 Calcium 8.6 (8.6-10.8) mg/dL Albumin 1.6 L (3.5-5.0) g/dL Pituitary panel 03/05/17 Range/Units 03:50 Sodium 129 L (136-145) mEq/L Potassium 3.5 (3.5-4.5) mEq/L Chloride 93 L (98-109) mEq/L Carbon Dioxide 26 (19-29) mEq/L BUN 34 H D (7-20) mg/dL Creatinine 2.59 H (0.57-1.11) mg/dL Glucose 139 H (70-99) mg/dL Calcium 8.6 (8.6-10.8) mg/dL Adrenal panel 03/05/17 Range/Units 03:50 Sodium 129 L (136-145) mEq/L Potassium 3.5 (3.5-4.5) mEq/L Chloride 93 L (98-109) mEq/L Carbon Dioxide 26 (19-29) mEq/L BUN 34 H D (7-20) mg/dL Creatinine 2.59 H (0.57-1.11) mg/dL Glucose 139 H (70-99) mg/dL Calcium 8.6 (8.6-10.8) mg/dL Total Bilirubin 1.5 H (0.2-1.2) mg/dL AST 11 (5-34) Units/L ALT 14 (0-55) Units/L Alkaline Phosphatase 265 H (38-126) Units/L Albumin 1.6 L (3.5-5.0) g/dL All other labs normal. Consult Discharge Plan - Plan Referrals: Henrry Mccullough MD [Primary Care Provider] -
[2017-03-05] MEDS: Dexmedetomidine HCl 400 MCG/100 ML MLS IVC SCH (19:20)
[2017-03-05] MEDS: Lactulose Oral Soln 20 GM/30 ML UDC PO SCH (20:02)
[2017-03-05] MEDS: EPINEPHrine 1 MG in D5% in Water 250 ML IVC SCH (20:03)
[2017-03-06] MEDS: Aztreonam 500 MG in D5% in Water 100 ML IVPB SCH ×3 (01:00→19:58)
[2017-03-06 03:16] LABS: Mean Corpuscular Volume 78.2 fL (83.0-100.0)
[2017-03-06 03:18] LABS: Basophils % 0.1 %; Eosinophils # 0.1 K/mcL (0.0-0.6); Eosinophils % 0.3 %; Hematocrit 26.5 % (35.3-44.9); Hemoglobin 7.9 g/dL (11.5-15.4); Immature Granulocytes % 8.1 % (0-4); Immature Platelets 6.1 % (1.1-6.1); Lymphocytes # 0.5 K/mcL (0.6-4.6); Lymphocytes % 2.2 %; Mean Corpuscular HGB Conc 29.8 g/dL (31.6-35.5); Mean Corpuscular Hemoglobin 23.3 pg (28.0-33.3); Mean Platelet Volume 11.2 fL (9.4-12.4); Monocytes # 0.9 K/mcL (0.0-1.3); Monocytes % 3.7 %; Neutrophils # 20.9 K/mcL (1.6-8.9); Nucleated Red Blood Cells 0.4 /100 WBC (0); Platelet Count 133 K/mcL (140-400); Red Blood Count 3.39 M/mcL (3.82-4.97); Red Cell Distribution Width 21.2 % (11.5-14.5); Segmented Neutrophils % 85.6 %
[2017-03-06 03:21] LABS: INR 1.2; Prothrombin Time 12.6 Seconds (9.4-12.1)
[2017-03-06] MEDS: Lacri-Lube 3.5 GM TUBE BOTH EYES SCH ×6 (03:23→23:52)
[2017-03-06 03:34] LABS: Albumin/Globulin Ratio 0.5 (1.1-2.2); Bilirubin,Direct 0.9 mg/dL (0.0-0.5); Bilirubin,Indirect 0.2 mg/dL (0.0-1.2); Bilirubin,Total 1.1 mg/dL (0.2-1.2); Calcium 8.5 mg/dL (8.6-10.8); Globulin 2.8 g/dL (2.4-3.5); Magnesium 1.5 mg/dL (1.6-2.6); Potassium 3.2 mEq/L (3.5-4.5); Total Protein 4.3 g/dL (6.0-8.3)
[2017-03-06 03:38] LABS: Albumin 1.5 g/dL (3.5-5.0)
[2017-03-06] MEDS: Insulin LISPRO 300 UNITS/3 ML VIAL SQ SCH ×6 (03:40→23:52)
[2017-03-06 03:43] LABS: Anisocytosis 2+ (Not Present); Burr Cells 1+ (Not Present); Hypochromasia Present (Not Present); Platelet Estimate Normal (Normal); Poikilocytosis 1+ (Not Present)
[2017-03-06] MEDS: Heparin 25,000 UNIT/500 ML D5W 25,000 UNIT/500 ML MLS IVC SCH (05:03)
[2017-03-06 05:07] LABS: ABG Base Excess -0.9 mEq/L (-2.0 to 3.0); ABG HCO3 25.3 mEQ/L (21-27); ABG Oxygen Saturation 94 % (95-98); ABG PCO2 48 mmHg (35-45); ABG PH 7.33 pH Units (7.32-7.45); ABG PO2 75 mmHg (85-104); ABG TCO2 26.8 mEq/L (20-26)
[2017-03-06 05:13] LABS: Blood Gas FiO2 30 %
--- NOTE | 2017-03-06 08:27 | Pulmonology Progress Note ---
<BobChadwick W - Last Filed: 03/06/17 10:38> Date of Encounter: 03/06/17 Objective PUL Vital signs: Last Vital Signs Temp 97.6 F 03/06/17 07:48 Pulse 88 03/06/17 10:00 Resp 22 03/06/17 10:00 BP 103/53 03/06/17 10:00 Pulse Ox 92 03/06/17 10:00 Ventilator Settings Ventilator Settings: Ventilator Settings, Last 8 Hours Ventilator Mode VC+ Ventilator Mode VC+ Ventilator Mode VC+ Ventilator Mode VC+ Ventilator Mode VC+ Ventilator Mode VC+ Ventilator Mode VC+ Ventilator Mode VC+ Ventilator Mode VC+ Ventilator Mode VC+ Ventilator Mode VC+ Ventilator Mode VC+ Ventilator Tidal Volume 350 Setting Ventilator Tidal Volume 350 Setting Ventilator Tidal Volume 350 Setting Ventilator Tidal Volume 350 Setting Ventilator Tidal Volume 350 Setting Ventilator Tidal Volume 350 Setting Ventilator Tidal Volume 350 Setting Ventilator Tidal Volume 350 Setting Ventilator Tidal Volume 350 Setting Ventilator Tidal Volume 350 Setting Ventilator Tidal Volume 350 Setting Ventilator Tidal Volume 350 Setting Ventilator Respiratory Rate 18 Setting Ventilator Respiratory Rate 18 Setting Ventilator Respiratory Rate 18 Setting Ventilator Respiratory Rate 18 Setting Ventilator Respiratory Rate 18 Setting Ventilator Respiratory Rate 18 Setting Ventilator Respiratory Rate 18 Setting Ventilator Respiratory Rate 18 Setting Ventilator Respiratory Rate 18 Setting Ventilator Respiratory Rate 18 Setting Ventilator Respiratory Rate 18 Setting Ventilator Respiratory Rate 18 Setting Actual Respiratory Rate 22 Actual Respiratory Rate 22 Actual Respiratory Rate 20 Actual Respiratory Rate 19 Actual Respiratory Rate 21 Actual Respiratory Rate 20 Actual Respiratory Rate 20 Actual Respiratory Rate 20 Actual Respiratory Rate 22 Actual Respiratory Rate 20 Actual Respiratory Rate 22 Positive End Expiratory 8 Pressure Positive End Expiratory 8 Pressure Positive End Expiratory 8 Pressure Positive End Expiratory 8 Pressure Positive End Expiratory 10 Pressure Positive End Expiratory 10 Pressure Positive End Expiratory 10 Pressure Positive End Expiratory 10 Pressure Positive End Expiratory 10 Pressure Positive End Expiratory 10 Pressure Positive End Expiratory 10 Pressure Positive End Expiratory 10 Pressure Peak Inspiratory Airway 15 Pressure Peak Inspiratory Airway 16 Pressure Peak Inspiratory Airway 20 Pressure Peak Inspiratory Airway 20 Pressure Peak Inspiratory Airway 26 Pressure Peak Inspiratory Airway 27 Pressure Peak Inspiratory Airway 27 Pressure Peak Inspiratory Airway 27 Pressure Peak Inspiratory Airway 26 Pressure Peak Inspiratory Airway 27 Pressure Peak Inspiratory Airway 26 Pressure Results - Laboratory Findings CBC and BMP: 03/06/17 03:10 03/06/17 03:10 ABG ABG pH 7.33 pH Units (7.32-7.45) 03/06/17 04:55 ABG pCO2 48 mmHg (35-45) H 03/06/17 04:55 ABG pO2 75 mmHg (85-104) L 03/06/17 04:55 ABG O2 Saturation 94 % (95-98) L 03/06/17 04:55 PT/INR, D-dimer PT 12.6 Seconds (9.4-12.1) H 03/06/17 03:10 D-Dimer 874 ng/mLFEU (0-500) H 03/03/17 04:18 Abnormal lab findings: Abnormal lab results WBC 24.4 K/mcL (4.3-11.1) H 03/06/17 03:10 RBC 3.39 M/mcL (3.82-4.97) L 03/06/17 03:10 Hgb 7.9 g/dL (11.5-15.4) L 03/06/17 03:10 Hct 26.5 % (35.3-44.9) L 03/06/17 03:10 MCV 78.2 fL (83.0-100.0) L 03/06/17 03:10 MCH 23.3 pg (28.0-33.3) L 03/06/17 03:10 MCHC 29.8 g/dL (31.6-35.5) L 03/06/17 03:10 RDW 21.2 % (11.5-14.5) H 03/06/17 03:10 Plt Count 133 K/mcL (140-400) L 03/06/17 03:10 Immature Gran % 8.1 % (0-4) H 03/06/17 03:10 Band Neutrophils % 28.0 % (0-4) H 03/04/17 04:54 Neutrophils # 20.9 K/mcL (1.6-8.9) H 03/06/17 03:10 Lymphocytes # 0.5 K/mcL (0.6-4.6) L 03/06/17 03:10 Nucleated RBCs/100 WBC 0.4 /100 WBC (0) H 03/06/17 03:10 Toxic Granulation Present (Not Present) A 03/03/17 03:15 Polychromasia 1+ (Not Present) A 03/02/17 08:10 Hypochromasia Present (Not Present) A 03/06/17 03:10 Poikilocytosis 1+ (Not Present) A 03/06/17 03:10 Basophilic Stippling 1+ (Not Present) A 02/25/17 07:11 Anisocytosis 2+ (Not Present) A 03/06/17 03:10 Microcytosis Present (Not Present) A 03/05/17 03:50 Macrocytosis Present (Not Present) A 03/05/17 03:50 Hiren Cells 1+ (Not Present) A 03/06/17 03:10 Acanthocytes (Spur) 1+ (Not Present) A 03/05/17 03:50 PT 12.6 Seconds (9.4-12.1) H 03/06/17 03:10 APTT 60.8 Seconds (26.0-36.0) H 03/06/17 00:00 Fibrinogen 482 mg/dL (169-393) H 03/03/17 04:18 D-Dimer 874 ng/mLFEU (0-500) H 03/03/17 04:18 Heparin Anti-Xa, Unfract 0.01 IU/mL (0.30-0.70) L 03/01/17 04:10 ABG pCO2 48 mmHg (35-45) H 03/06/17 04:55 ABG pO2 75 mmHg (85-104) L 03/06/17 04:55 ABG Total CO2 26.8 mEq/L (20-26) H 03/06/17 04:55 ABG O2 Saturation 94 % (95-98) L 03/06/17 04:55 VBG pH 7.08 pH Units (7.32-7.42) L* 02/25/17 05:40 VBG pCO2 92 mmHg (41-51) H 02/25/17 05:40 VBG pO2 67 mmHg (25-40) H 02/25/17 05:40 VBG HCO3 27.3 mEq/L (21-27) H 02/25/17 05:40 Sodium 125 mEq/L (136-145) L 03/06/17 03:10 Potassium 3.2 mEq/L (3.5-4.5) L 03/06/17 03:10 Chloride 91 mEq/L (98-109) L 03/06/17 03:10 BUN 42 mg/dL (7-20) H 03/06/17 03:10 Creatinine 2.88 mg/dL (0.57-1.11) H 03/06/17 03:10 Est GFR ( Amer) 19 (> 60) L 03/06/17 03:10 Est GFR (Non-Af Amer) 16 (> 60) L 03/06/17 03:10 Glucose 116 mg/dL (70-99) H 03/06/17 03:10 POC Glucose 144 (58-89) H 03/05/17 23:12 Calculated Osmolality 271 (280-300) L 03/06/17 03:10 Calcium 8.5 mg/dL (8.6-10.8) L 03/06/17 03:10 Magnesium 1.5 mg/dL (1.6-2.6) L 03/06/17 03:10 Direct Bilirubin 0.9 mg/dL (0.0-0.5) H 03/06/17 03:10 Alkaline Phosphatase 304 Units/L (38-126) H 03/06/17 03:10 B-Natriuretic Peptide 2203 pg/mL (0-100) H 02/25/17 07:11 Serum Total Protein 4.3 g/dL (6.0-8.3) L 03/06/17 03:10 Albumin 1.5 g/dL (3.5-5.0) L 03/06/17 03:10 Albumin/Globulin Ratio 0.5 (1.1-2.2) L 03/06/17 03:10 Amylase 16 Units/L (25-125) L 03/04/17 15:00 Ur Specimen Adequacy See below A 02/25/17 06:28 Urine Clarity Turbid (Clear) A 02/25/17 06:28 Urine Protein >=300 mg/dL (Neg-Trace) H 02/25/17 06:28 Urine Ketones Trace mg/dL (Negative) H 02/25/17 06:28 Urine Blood Large (Negative) H 02/25/17 06:28 Ur Leukocyte Esterase Large (Negative) H 02/25/17 06:28 Ur Culture Indicated? YES (NO) A 02/25/17 06:28 Pleural Appearance Hazy (Clear) A 02/26/17 15:30 Pleural RBC 0.020 M/mcL (0.000-0.002) H 02/26/17 15:30 - Microbiology Findings Microbiology Findings: Microbiology, Last 48 Hours 03/04/17 15:47 Urine Culture - Preliminary Urine,Catheterized Gram Positive Cocci Yeast Species 03/04/17 15:00 Blood Culture - Preliminary Central Venous Catheter No growth. 03/04/17 15:00 Blood Culture - Preliminary Central Venous Catheter No growth. 03/04/17 19:50 Blood Culture - Preliminary Peripheral Venipuncture No growth. 03/05/17 11:40 Sputum Culture - Preliminary Sputum 02/26/17 12:41 Blood Culture - Preliminary Port System Gram Positive Rods - Clinical Findings Intake & Output: Intake & Output 03/05/17 03/06/17 03/06/17 23:59 07:59 15:59 Intake Total 824 / 824 604 / 604 Output Total 250 / 250 0 / 0 Balance 574 / 574 604 / 604 Weight 87 kg Consult Discharge Plan - Plan Referrals: Henrry Mccullough MD [Primary Care Provider] - - Attending Attestation I examined this patient and my medical decision-making was reviewed with the Resident Physician. I agree with the documented findings, disposition and treatment plan as described except to the extent set forth below. Patient seen and examined at bedside Labs, radiology, chart personally reviewed. All lines examined without evidence of infection. Management was reviewed during multidisciplinary critical care rounds. Neuropsych: remains encephalopathic but in general has more responsiveness; continue lactulose for concern of hepatic encephalopathy Pulm: Remains on vent settings today adequate oxygenation dropping PEEP continue low tidal volume ventilatory strategy Cards: A. fib rate controlled distributive shock has been weaned off vasopressor support FEN-GI: GI prophylaxis given advanced enteral nutrition Renal: ESRD nephrology following plan for dialysis today; we are monitoring her electrolytes and replacing per protocol ID: Septic shock resolving of unclear etiology she is being treated for VRE possibility of pneumonia or intra-abdominal source infectious disease is following Heme/Onc: Hemoglobin and platelet count are stable she has been restarted on heparin infusion were& prevention with underlying A. fib Endo: Glucose monitor Integ/MSK: Skin care. Routine ICU protocol to prevent ulcers. She does have a large central decubitus ulcer which was evaluated by surgery that currently surgical candidate for debridement given underlying medical comorbidities the area has been dressed appropriately we will continue to monitor VASC: Microembolic phenomenon and hypoperfusion has led to Purpura of several toes. Arterial studies showed a good waveform to the ankle. We will have vascular surgery evaluate her today to see if there is any other recommendation is that require surgical amputation and expected prognosis CODE: [facility] palliative care team is following on this patient we are planning for a family meeting today to update family and to reestablish goals of care <Lurdes Meyer - Last Filed: 03/06/17 15:04> Date of Encounter: 03/06/17 Time of Encounter: 08:27 Assessment and Plan (1) Acute and chronic respiratory failure Current Visit: No Status: Acute Patient intubated on the ventilator. Sedation is turned off. Patient is still just minimally responsive. She does respond to verbal stimuli by she opens her eyes. Patient does have cyanosis to several toes on her feet bilaterally. Patient was initially weaned off pressors overnight however this was recent vertigo today due to hypotension. ABIs as well as arterial Doppler of lower extremities were normal. Plan: levofed as needed for map greater than 60. Will wean as tolerated. Vascular and podiatry consults today due to cyanotic toes. Continue antibiotics as aztreonam and Flagyl. Unknown source of sepsis. Protonix for GI prophylaxis Continue to trend hemoglobin. No evidence of bleeding however hemoglobin at 7.9 today. Platelets were also low. We are continuing to hold the heparin. Skin care for pressure ulcer (2) Septic shock Current Visit: Yes Status: Acute (3) Acute encephalopathy Current Visit: No Status: Acute (4) Cirrhosis Current Visit: No Status: Chronic (5) DM (diabetes mellitus), type 2 Current Visit: Yes Status: Chronic (6) Atrial fibrillation Current Visit: Yes Status: Chronic (7) Pressure ulcer Current Visit: Yes Status: Acute Subjective Principal diagnosis: Encephalopathy Interval history: Patient was weaned off pressors overnight. However today became hypotensive again and had to restart the pressors. Patient's is off sedation. Still only minimally responsive. Vascular and podiatry were contacted today to discuss patient's cyanotic toes bilaterally. Her ELAYNE was normal as was her arterial Doppler. This is likely secondary to vasopressors. Patient's white count seems to be decreasing. We will increase her lactulose today to augment stooling. We will continue the aztreonam as well as Flagyl for unknown source of sepsis. Her hemoglobin remained stable at 7.9. We will continue mechanical DVT prophylaxis. Patient remains encephalopathic. Objective PUL Vital signs: Last Vital Signs Temp 97.6 F 03/06/17 07:48 Pulse 82 03/06/17 06:00 Resp 21 03/06/17 06:26 BP 108/53 03/06/17 06:26 Pulse Ox 97 03/06/17 06:26 General appearance: other (Pt intubated but still minimally responsive. Does open her eyes to voice command.) Eyes: nonicteric ENT: oropharynx moist Neck: supple Effort: other (Intubated On ventilator.) Auscultation: bilateral: clear Cardiovascular: irregular rhythm Gastrointestinal: normoactive bowel sounds, soft, non-distended Integumentary: decubitus ulcer (stage 2, no purulent discharge noted. ) Extremities: no clubbing, pulses normal, cyanosis (Cyanosis of middle 3 toes on left and second and fourth toe on the right.), edema (Pitting edema to knees bilaterally. Also mild pitting edema to bilateral forearms.) Musculoskeletal: no deformities Ventilator Settings Ventilator Settings: Ventilator Settings, Last 8 Hours Ventilator Mode VC+ Ventilator Mode VC+ Ventilator Mode VC+ Ventilator Mode VC+ Ventilator Mode VC+ Ventilator Mode VC+ Ventilator Mode VC+ Ventilator Mode VC+ Ventilator Mode VC+ Ventilator Mode VC+ Ventilator Tidal Volume 350 Setting Ventilator Tidal Volume 350 Setting Ventilator Tidal Volume 350 Setting Ventilator Tidal Volume 350 Setting Ventilator Tidal Volume 350 Setting Ventilator Tidal Volume 350 Setting Ventilator Tidal Volume 350 Setting Ventilator Tidal Volume 350 Setting Ventilator Tidal Volume 350 Setting Ventilator Tidal Volume 350 Setting Ventilator Respiratory Rate 18 Setting Ventilator Respiratory Rate 18 Setting Ventilator Respiratory Rate 18 Setting Ventilator Respiratory Rate 18 Setting Ventilator Respiratory Rate 18 Setting Ventilator Respiratory Rate 18 Setting Ventilator Respiratory Rate 18 Setting Ventilator Respiratory Rate 18 Setting Ventilator Respiratory Rate 18 Setting Ventilator Respiratory Rate 18 Setting Actual Respiratory Rate 21 Actual Respiratory Rate 20 Actual Respiratory Rate 20 Actual Respiratory Rate 20 Actual Respiratory Rate 22 Actual Respiratory Rate 20 Actual Respiratory Rate 22 Actual Respiratory Rate 20 Actual Respiratory Rate 20 Positive End Expiratory 10 Pressure Positive End Expiratory 10 Pressure Positive End Expiratory 10 Pressure Positive End Expiratory 10 Pressure Positive End Expiratory 10 Pressure Positive End Expiratory 10 Pressure Positive End Expiratory 10 Pressure Positive End Expiratory 10 Pressure Positive End Expiratory 10 Pressure Positive End Expiratory 10 Pressure Peak Inspiratory Airway 26 Pressure Peak Inspiratory Airway 27 Pressure Peak Inspiratory Airway 27 Pressure Peak Inspiratory Airway 27 Pressure Peak Inspiratory Airway 26 Pressure Peak Inspiratory Airway 27 Pressure Peak Inspiratory Airway 26 Pressure Peak Inspiratory Airway 27 Pressure Peak Inspiratory Airway 24 Pressure Results - Laboratory Findings CBC and BMP: 03/06/17 03:10 03/06/17 03:10 ABG ABG pH 7.33 pH Units (7.32-7.45) 03/06/17 04:55 ABG pCO2 48 mmHg (35-45) H 03/06/17 04:55 ABG pO2 75 mmHg (85-104) L 03/06/17 04:55 ABG O2 Saturation 94 % (95-98) L 03/06/17 04:55 PT/INR, D-dimer PT 12.6 Seconds (9.4-12.1) H 03/06/17 03:10 D-Dimer 874 ng/mLFEU (0-500) H 03/03/17 04:18 Abnormal lab findings: Abnormal lab results WBC 24.4 K/mcL (4.3-11.1) H 03/06/17 03:10 RBC 3.39 M/mcL (3.82-4.97) L 03/06/17 03:10 Hgb 7.9 g/dL (11.5-15.4) L 03/06/17 03:10 Hct 26.5 % (35.3-44.9) L 03/06/17 03:10 MCV 78.2 fL (83.0-100.0) L 03/06/17 03:10 MCH 23.3 pg (28.0-33.3) L 03/06/17 03:10 MCHC 29.8 g/dL (31.6-35.5) L 03/06/17 03:10 RDW 21.2 % (11.5-14.5) H 03/06/17 03:10 Plt Count 133 K/mcL (140-400) L 03/06/17 03:10 Immature Gran % 8.1 % (0-4) H 03/06/17 03:10 Band Neutrophils % 28.0 % (0-4) H 03/04/17 04:54 Neutrophils # 20.9 K/mcL (1.6-8.9) H 03/06/17 03:10 Lymphocytes # 0.5 K/mcL (0.6-4.6) L 03/06/17 03:10 Nucleated RBCs/100 WBC 0.4 /100 WBC (0) H 03/06/17 03:10 Toxic Granulation Present (Not Present) A 03/03/17 03:15 Polychromasia 1+ (Not Present) A 03/02/17 08:10 Hypochromasia Present (Not Present) A 03/06/17 03:10 Poikilocytosis 1+ (Not Present) A 03/06/17 03:10 Basophilic Stippling 1+ (Not Present) A 02/25/17 07:11 Anisocytosis 2+ (Not Present) A 03/06/17 03:10 Microcytosis Present (Not Present) A 03/05/17 03:50 Macrocytosis Present (Not Present) A 03/05/17 03:50 Hiren Cells 1+ (Not Present) A 03/06/17 03:10 Acanthocytes (Spur) 1+ (Not Present) A 03/05/17 03:50 PT 12.6 Seconds (9.4-12.1) H 03/06/17 03:10 APTT 60.8 Seconds (26.0-36.0) H 03/06/17 00:00 Fibrinogen 482 mg/dL (169-393) H 03/03/17 04:18 D-Dimer 874 ng/mLFEU (0-500) H 03/03/17 04:18 Heparin Anti-Xa, Unfract 0.01 IU/mL (0.30-0.70) L 03/01/17 04:10 ABG pCO2 48 mmHg (35-45) H 03/06/17 04:55 ABG pO2 75 mmHg (85-104) L 03/06/17 04:55 ABG Total CO2 26.8 mEq/L (20-26) H 03/06/17 04:55 ABG O2 Saturation 94 % (95-98) L 03/06/17 04:55 VBG pH 7.08 pH Units (7.32-7.42) L* 02/25/17 05:40 VBG pCO2 92 mmHg (41-51) H 02/25/17 05:40 VBG pO2 67 mmHg (25-40) H 02/25/17 05:40 VBG HCO3 27.3 mEq/L (21-27) H 02/25/17 05:40 Sodium 125 mEq/L (136-145) L 03/06/17 03:10 Potassium 3.2 mEq/L (3.5-4.5) L 03/06/17 03:10 Chloride 91 mEq/L (98-109) L 03/06/17 03:10 BUN 42 mg/dL (7-20) H 03/06/17 03:10 Creatinine 2.88 mg/dL (0.57-1.11) H 03/06/17 03:10 Est GFR ( Amer) 19 (> 60) L 03/06/17 03:10 Est GFR (Non-Af Amer) 16 (> 60) L 03/06/17 03:10 Glucose 116 mg/dL (70-99) H 03/06/17 03:10 POC Glucose 144 (58-89) H 03/05/17 23:12 Calculated Osmolality 271 (280-300) L 03/06/17 03:10 Calcium 8.5 mg/dL (8.6-10.8) L 03/06/17 03:10 Magnesium 1.5 mg/dL (1.6-2.6) L 03/06/17 03:10 Direct Bilirubin 0.9 mg/dL (0.0-0.5) H 03/06/17 03:10 Alkaline Phosphatase 304 Units/L (38-126) H 03/06/17 03:10 B-Natriuretic Peptide 2203 pg/mL (0-100) H 02/25/17 07:11 Serum Total Protein 4.3 g/dL (6.0-8.3) L 03/06/17 03:10 Albumin 1.5 g/dL (3.5-5.0) L 03/06/17 03:10 Albumin/Globulin Ratio 0.5 (1.1-2.2) L 03/06/17 03:10 Amylase 16 Units/L (25-125) L 03/04/17 15:00 Ur Specimen Adequacy See below A 02/25/17 06:28 Urine Clarity Turbid (Clear) A 02/25/17 06:28 Urine Protein >=300 mg/dL (Neg-Trace) H 02/25/17 06:28 Urine Ketones Trace mg/dL (Negative) H 02/25/17 06:28 Urine Blood Large (Negative) H 02/25/17 06:28 Ur Leukocyte Esterase Large (Negative) H 02/25/17 06:28 Ur Culture Indicated? YES (NO) A 02/25/17 06:28 Pleural Appearance Hazy (Clear) A 02/26/17 15:30 Pleural RBC 0.020 M/mcL (0.000-0.002) H 02/26/17 15:30 - Microbiology Findings Microbiology Findings: Microbiology, Last 48 Hours 03/04/17 15:47 Urine Culture - Preliminary Urine,Catheterized Gram Positive Cocci Yeast Species 03/04/17 15:00 Blood Culture - Preliminary Central Venous Catheter No growth. 03/04/17 15:00 Blood Culture - Preliminary Central Venous Catheter No growth. 03/04/17 19:50 Blood Culture - Preliminary Peripheral Venipuncture No growth. 03/05/17 11:40 Sputum Culture - Preliminary Sputum 02/26/17 12:41 Blood Culture - Preliminary Port System Gram Positive Rods 02/26/17 12:41 Blood Culture - Final Port System No growth. 02/26/17 10:27 Blood Culture - Final Peripheral Venipuncture No growth. 02/26/17 10:20 Blood Culture - Final Peripheral Venipuncture No growth. - Diagnostic Findings Additional studies: KUB X-Ray 02/25/17 11:23 IMPRESSION: OG tube in place with its tip in the region of the body of the stomach and side-port in the region of the GE junction D/ / Chester Benitez MD / Chester Benitez MD Interpreting Provider: Chester Benitez MD Chest X-Ray 03/01/17 11:08 IMPRESSION: Persistent CHF. Increased left pleural effusion and basilar volume loss. Satisfactory position of endotracheal tube. D/ / Cameron John MD / Cameron John MD Interpreting Provider: Cameron John MD Abdomen/Pelvis CT 03/04/17 18:00 IMPRESSION: Study is moderately motion compromised. Support apparatus appears to be in adequate position. Moderate bilateral pleural effusions left greater than right and associated dependent consolidation likely related to atelectasis and underlying pulmonary edema noted. Superimposed pneumonia cannot be excluded. Overall no great change from the comparison noted with slight and improvement in decrease in size of left-sided pleural effusion. New subacute rib fractures are noted on the left. Evaluation of the abdomen and pelvis is also motion compromised. Findings compatible with cirrhosis noted. Very mild prominence of the wall thickness of the colon felt to be artifactual in nature. Mild degree of underlying colitis cannot be completely excluded but is felt to be less likely. There is 3rd spacing noted which may be related to underlying cardiac, renal or hepatic dysfunction. Incidental note of acute fracture of the right hip. D/ : / 03/04/2017 19:35:59 Noé Ball MD / allen Interpreting Provider: Noé Ball MD Chest CT 03/04/17 18:00 IMPRESSION: Study is moderately motion compromised. Support apparatus appears to be in adequate position. Moderate bilateral pleural effusions left greater than right and associated dependent consolidation likely related to atelectasis and underlying pulmonary edema noted. Superimposed pneumonia cannot be excluded. Overall no great change from the comparison noted with slight and improvement in decrease in size of left-sided pleural effusion. New subacute rib fractures are noted on the left. Evaluation of the abdomen and pelvis is also motion compromised. Findings compatible with cirrhosis noted. Very mild prominence of the wall thickness of the colon felt to be artifactual in nature. Mild degree of underlying colitis cannot be completely excluded but is felt to be less likely. There is 3rd spacing noted which may be related to underlying cardiac, renal or hepatic dysfunction. Incidental note of acute fracture of the right hip. D/ /04/2017 19:35:59 Noé Ball MD / allen Interpreting Provider: Noé Ball MD Head CT 03/04/17 18:00 IMPRESSION: Motion artifact limits evaluation. No definite acute intracranial abnormality. Fluid in the mastoid air cells bilaterally, left greater than right, which is new from 02/25/2017. This finding is nonspecific but can be seen with mastoiditis. Patchy hypodensities in the periventricular and subcortical white matter, which are nonspecific, but may represent chronic small vessel ischemic change. D/ / 03/04/2017 19:39:56 David Hammond MD / allen Interpreting Provider: David Hammond MD Pelvis CT 03/04/17 18:00 IMPRESSION: Right greater trochanteric fracture, without significant displacement. Again, the age of this is indeterminate, as there appears to be some periosteal reaction, suggesting a subacute timeframe. On the indication, there is concern for infection. Although infection is not excluded by CT (or for that matter MRI) there is only a very small amount of articular fluid, with no significant joint effusion, making that less likely. D/ / Jacques Long MD / Jacques Long MD Interpreting Provider: Jacques Long MD - Clinical Findings Intake & Output: Intake & Output 03/05/17 03/06/17 03/06/17 23:59 07:59 15:59 Intake Total 824 / 824 484 / 484 Output Total 250 / 250 0 / 0 Balance 574 / 574 484 / 484 Weight 87 kg - Stroke Is the patient on any antithrombotics?: No Contraindication Antithromb by Day Two: Not Indicated - Due to Bleeding Disorder or Risk of Bleeding (Coagulapathy with elevated INR) - VTE Reasons for not Prescribing Prophylaxis: Not indicated-Anticoagulated or INR therapeutic - AMI Reason for No Aspirin at Discharge: Drug treatment not indicated
[2017-03-06] MEDS ORDERED: 0.9 % Sodium Chloride 250 ML IVC PRN (08:41)
--- NOTE | 2017-03-06 08:41 | Nephrology Progress Note ---
Date of Encounter: 03/06/17 Time of Encounter: 08:39 - Assessment and Plan (1) End-stage renal disease Current Visit: Yes Status: Acute The patient remains critically ill. She has respiratory failure and is ventilator dependent. The patient will undergo dialysis today. She will be on a 4K bath. She will not receive any additional heparin. Following removal will be small because of hypotension. (2) Chronic diastolic (congestive) heart failure Current Visit: No Status: Acute (3) Acute and chronic respiratory failure Current Visit: No Status: Acute Qualifiers: Respiratory failure complication: hypercapnia Qualified Code(s): J96.22 - Acute and chronic respiratory failure with hypercapnia (4) Atrial fibrillation Current Visit: No Status: Chronic Qualifiers: Atrial fibrillation type: chronic Qualified Code(s): I48.2 - Chronic atrial fibrillation Subjective Principal diagnosis: Encephalopathy Interval history: The patient remains poorly responsive on the ventilator. White count remains elevated. Blood pressure is relatively stable. Objective - Vital Signs Vital signs: Vital Signs Temp Pulse Resp BP Pulse Ox 03/06/17 07:48 97.6 F 03/06/17 06:26 21 108/53 97 03/06/17 06:00 82 21 101/53 100 03/06/17 05:00 72 21 100/53 100 03/06/17 04:00 74 21 95/49 100 03/06/17 03:57 20 94/49 99 03/06/17 03:00 71 21 91/46 100 03/06/17 02:54 74 03/06/17 02:45 97.4 F L 03/06/17 02:42 20 94/50 99 03/06/17 02:00 74 20 93/50 98 03/06/17 01:05 79 20 115/51 98 03/06/17 00:13 21 115/51 98 03/06/17 00:00 97.6 F 75 19 84/43 100 03/05/17 23:03 75 21 106/48 100 03/05/17 22:08 21 115/52 100 03/05/17 22:00 75 18 115/52 100 03/05/17 21:00 70 18 101/47 100 03/05/17 20:41 19 95/48 100 03/05/17 20:00 97.5 F L 68 18 97/52 100 07/25/17 19:00 71 18 87/50 100 03/05/17 18:09 18 100 03/05/17 18:00 71 18 80/43 100 03/05/17 17:00 76 18 108/53 100 03/05/17 16:00 97.4 F L 73 18 113/57 100 03/05/17 15:00 59 19 96/51 100 03/05/17 14:20 20 100 03/05/17 14:00 65 19 95/60 100 03/05/17 13:20 20 96/50 100 03/05/17 13:00 68 20 96/50 100 03/05/17 12:00 79 21 105/56 100 03/05/17 11:32 19 108/60 100 03/05/17 11:00 97.7 F 81 18 113/51 100 03/05/17 10:00 84 18 111/48 100 03/05/17 09:30 21 121/55 100 03/05/17 09:00 86 20 103/50 99 Intake and Output 03/05/17 03/06/17 03/06/17 23:59 07:59 15:59 Intake Total 824 / 824 484 / 484 Output Total 250 / 250 0 / 0 Balance 574 / 574 484 / 484 Intake: IV Fluids 764 / 764 484 / 484 Heparin 25,000 UNIT/500 216 / 216 284 / 284 ML D5W 25,000 unit In 500 ml @ 14 UNIT/KG/HR 24. 332 mls/hr IVC .[id number] CANDE Rx#:[id number] Levophed 8 MG In Dextrose 48 / 48 5% 250 ML @ 5 MCG/MIN 9. 67 mls/hr IVC CONT PRN Rx #:[id number] Azactam 500 MG In 100 / 100 100 / 100 Dextrose 5% 100 ML @ 200 mls/hr IVPB Q8H CANDE Rx#: [id number] Zyvox Premix 600mg/300mL 300 / 300 600 mg In 300 ml @ 150 mls/hr IVPB Q12HR CANDE Rx# :[id number] Flagyl Premix 500 MG/100 100 / 100 100 / 100 ML 500 mg In 100 ml @ 100 mls/hr IVPB Q8HR CANDE Rx# :[id number] Free Water 20 / 20 Free Water Intake Amount 40 / 40 Output: Urine 0 / 0 Gastric Drainage 250 / 250 Other: Stool Size Small Stool Consistency loose Stool Color Black Weight 87 kg Blood Glucose* 134 157 - General Appearance Exam: Patient is on the ventilator. She is poorly responsive. Blood pressure 108/ 53. Lungs diminished breath sounds. Heart irregular rate and rhythm. Abdomen is soft. Bowel sounds are present but diminished. There is some lower extremity swelling. There are ischemic changes to the toes in both feet. There is a tunnel dialysis catheter in the left chest and an immature AV fistula in the left arm. - Lab 03/06/17 03:10 03/06/17 03:10 Most recent lab results ABG pH 7.33 pH Units (7.32-7.45) 03/06/17 04:55 ABG pCO2 48 mmHg (35-45) H 03/06/17 04:55 ABG pO2 75 mmHg (85-104) L 03/06/17 04:55 ABG HCO3 25.3 mEQ/L (21-27) 03/06/17 04:55 ABG O2 Saturation 94 % (95-98) L 03/06/17 04:55 Calcium 8.5 mg/dL (8.6-10.8) L 03/06/17 03:10 Phosphorus 4.6 mg/dL (2.3-4.7) 03/02/17 08:10 Magnesium 1.5 mg/dL (1.6-2.6) L 03/06/17 03:10 - Stroke Is the patient on any antithrombotics?: Yes Contraindication Antithromb by Day Two: Not Indicated - Due to Bleeding Disorder or Risk of Bleeding (Coagulapathy with elevated INR) - VTE Reasons for not Prescribing Prophylaxis: Not indicated-Anticoagulated or INR therapeutic - AMI Reason for No Aspirin at Discharge: Drug treatment not indicated Consult Discharge Plan - Plan Referrals: Henrry Mccullough MD [Primary Care Provider] -
[2017-03-06] MEDS: MetroNIDAZOLE 500 MG/100 ML 500 MG/100 ML BAG IVPB SCH ×3 (08:58→23:51)
[2017-03-06] MEDS: Lactulose Oral Soln 20 GM/30 ML UDC PO SCH ×3 (08:58→19:51)
[2017-03-06] MEDS: Chlorhexidine Rinse 15 ML MOUTHWASH MM SCH ×2 (08:59→19:50)
[2017-03-06] MEDS: Aspirin 81 MG TAB.CHEW PO SCH (08:59)
[2017-03-06] MEDS: Folic Acid 1 MG TABLET PO SCH (08:59)
[2017-03-06] MEDS: Pantoprazole 40 MG VIAL IVPB SCH (08:59)
--- NOTE | 2017-03-06 09:14 | Palliative Progress Note ---
Date of Encounter: 03/06/17 Time of Encounter: 09:00 - Assessment and plan (1) Respiratory failure Current Visit: Yes Status: Acute Assessment and plan: Remains off sedation and on ventilatory support. Continues treatment for sepsis - last cultures remain pending. Leukoctosis improving. Qualifiers: Qualified Code(s): J96.91 - Respiratory failure, unspecified with hypoxia; J96.92 - Respiratory failure, unspecified with hypercapnia (2) Decubitus ulcer of sacral region, unstageable Current Visit: Yes Status: Acute Assessment and plan: Reviewed surgery consult. Patient not candidate for surgical intervention r/t medical comorbidities. Santyl dressings currently ordered. (3) ESRD (end stage renal disease) on dialysis Current Visit: Yes Status: Acute Assessment and plan: Nephrology following (4) Goals of care, counseling/discussion Current Visit: Yes Status: Acute Assessment and plan: Met briefly with pt daughter, Radha and provided update with information from rounding including, surgical wound consult, possible vascular consult today for cyanotic toes. Patient back on pressor with hemodialysis. Radha stated that pt was able to open eyes yesterday for other family members. I shared I have not seen anything like that from pt today. 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 Will continue to follow pt clinical course and assist as needed. - Time Spent With Patient Total time spent is greater than 50% in coordination of care (as documented) at patient's floor/unit and/or counseling patient: 25 - 35 minutes - Subjective Interval history: Patient remains off sedation and on ventilator. Moves head/feet occasionally. Does not open eyes with stimulation. does not follow commands. Off pressors at present. - Constitutional Vitals: Abnormal lab results WBC 24.4 K/mcL (4.3-11.1) H 03/06/17 03:10 RBC 3.39 M/mcL (3.82-4.97) L 03/06/17 03:10 Hgb 7.9 g/dL (11.5-15.4) L 03/06/17 03:10 Hct 26.5 % (35.3-44.9) L 03/06/17 03:10 MCV 78.2 fL (83.0-100.0) L 03/06/17 03:10 MCH 23.3 pg (28.0-33.3) L 03/06/17 03:10 MCHC 29.8 g/dL (31.6-35.5) L 03/06/17 03:10 RDW 21.2 % (11.5-14.5) H 03/06/17 03:10 Plt Count 133 K/mcL (140-400) L 03/06/17 03:10 Immature Gran % 8.1 % (0-4) H 03/06/17 03:10 Band Neutrophils % 28.0 % (0-4) H 03/04/17 04:54 Neutrophils # 20.9 K/mcL (1.6-8.9) H 03/06/17 03:10 Lymphocytes # 0.5 K/mcL (0.6-4.6) L 03/06/17 03:10 Nucleated RBCs/100 WBC 0.4 /100 WBC (0) H 03/06/17 03:10 Toxic Granulation Present (Not Present) A 03/03/17 03:15 Polychromasia 1+ (Not Present) A 03/02/17 08:10 Hypochromasia Present (Not Present) A 03/06/17 03:10 Poikilocytosis 1+ (Not Present) A 03/06/17 03:10 Basophilic Stippling 1+ (Not Present) A 02/25/17 07:11 Anisocytosis 2+ (Not Present) A 03/06/17 03:10 Microcytosis Present (Not Present) A 03/05/17 03:50 Macrocytosis Present (Not Present) A 03/05/17 03:50 Hiren Cells 1+ (Not Present) A 03/06/17 03:10 Acanthocytes (Spur) 1+ (Not Present) A 03/05/17 03:50 PT 12.6 Seconds (9.4-12.1) H 03/06/17 03:10 APTT 60.8 Seconds (26.0-36.0) H 03/06/17 00:00 Fibrinogen 482 mg/dL (169-393) H 03/03/17 04:18 D-Dimer 874 ng/mLFEU (0-500) H 03/03/17 04:18 Heparin Anti-Xa, Unfract 0.01 IU/mL (0.30-0.70) L 03/01/17 04:10 ABG pCO2 48 mmHg (35-45) H 03/06/17 04:55 ABG pO2 75 mmHg (85-104) L 03/06/17 04:55 ABG Total CO2 26.8 mEq/L (20-26) H 03/06/17 04:55 ABG O2 Saturation 94 % (95-98) L 03/06/17 04:55 VBG pH 7.08 pH Units (7.32-7.42) L* 02/25/17 05:40 VBG pCO2 92 mmHg (41-51) H 02/25/17 05:40 VBG pO2 67 mmHg (25-40) H 02/25/17 05:40 VBG HCO3 27.3 mEq/L (21-27) H 02/25/17 05:40 Sodium 125 mEq/L (136-145) L 03/06/17 03:10 Potassium 3.2 mEq/L (3.5-4.5) L 03/06/17 03:10 Chloride 91 mEq/L (98-109) L 03/06/17 03:10 BUN 42 mg/dL (7-20) H 03/06/17 03:10 Creatinine 2.88 mg/dL (0.57-1.11) H 03/06/17 03:10 Est GFR ( Amer) 19 (> 60) L 03/06/17 03:10 Est GFR (Non-Af Amer) 16 (> 60) L 03/06/17 03:10 Glucose 116 mg/dL (70-99) H 03/06/17 03:10 POC Glucose 144 (58-89) H 03/05/17 23:12 Calculated Osmolality 271 (280-300) L 03/06/17 03:10 Calcium 8.5 mg/dL (8.6-10.8) L 03/06/17 03:10 Magnesium 1.5 mg/dL (1.6-2.6) L 03/06/17 03:10 Direct Bilirubin 0.9 mg/dL (0.0-0.5) H 03/06/17 03:10 Alkaline Phosphatase 304 Units/L (38-126) H 03/06/17 03:10 B-Natriuretic Peptide 2203 pg/mL (0-100) H 02/25/17 07:11 Serum Total Protein 4.3 g/dL (6.0-8.3) L 03/06/17 03:10 Albumin 1.5 g/dL (3.5-5.0) L 03/06/17 03:10 Albumin/Globulin Ratio 0.5 (1.1-2.2) L 03/06/17 03:10 Amylase 16 Units/L (25-125) L 03/04/17 15:00 Ur Specimen Adequacy See below A 02/25/17 06:28 Urine Clarity Turbid (Clear) A 02/25/17 06:28 Urine Protein >=300 mg/dL (Neg-Trace) H 02/25/17 06:28 Urine Ketones Trace mg/dL (Negative) H 02/25/17 06:28 Urine Blood Large (Negative) H 02/25/17 06:28 Ur Leukocyte Esterase Large (Negative) H 02/25/17 06:28 Ur Culture Indicated? YES (NO) A 02/25/17 06:28 Pleural Appearance Hazy (Clear) A 02/26/17 15:30 Pleural RBC 0.020 M/mcL (0.000-0.002) H 02/26/17 15:30 General appearance: Present: no acute distress - Respiratory Respiratory exam: Present: CTAB Additional comments: Breath sounds course throughout - Cardiovascular Cardiovascular exam: Present: +S1, +S2 - GI/Abdominal GI/Abdominal exam: Present: hypoactive bowel sounds, soft - Extremities Exam Additional comments: Generalized edema to upper and lower extremities. 6/10 toes with cyanosis - Neurological Exam Additional comments: Pupils sluggish. Does not follow commands or open eyes when spoken to. Moves head/feet occasionally - Skin Skin exam: Present: dry, pallor, warm Palliative Quality Palliative Quality: Screen for Code Status: Yes, Screen for Goals of Care: Yes, Screen for Pain: Yes, If Pain Regimen Started, Initiate Bowel Regimen: Yes, Screen for Nausea/Vomitting: Yes Code Status: 03/01/17 14:19 CODE [Resuscitation Status: Active] [RES] Routine Comment: Resuscitation Status: DNR-Comfort Care-Arrest - Labs CBC & Chem 7: 03/06/17 03:10 03/06/17 03:10 Labs: Laboratory Results - last 24 hr 03/05/17 03/05/17 03/05/17 04:30 07:45 12:24 WBC RBC Hgb Hct MCV MCH MCHC RDW Plt Count MPV Immature Gran % Seg Neutrophils % Lymphocytes % Monocytes % Eosinophils % Basophils % Neutrophils # Lymphocytes # Monocytes # Eosinophils # Basophils # Nucleated RBCs/100 WBC Platelet Estimate Immature Plt Fraction Hypochromasia Poikilocytosis Anisocytosis Hiren Cells PT INR APTT ABG pH ABG pCO2 ABG pO2 ABG HCO3 ABG Total CO2 ABG O2 Saturation ABG Base Excess Blood Gas Modality Inspired O2 Sodium Potassium Chloride Carbon Dioxide BUN Creatinine Est GFR ( Amer) Est GFR (Non-Af Amer) BUN/Creatinine Ratio Glucose POC Glucose 130 H 182 H 170 H Calculated Osmolality Calcium Ionized Calcium Magnesium Total Bilirubin Direct Bilirubin Indirect Bilirubin AST ALT Alkaline Phosphatase Serum Total Protein Albumin Globulin Albumin/Globulin Ratio 03/05/17 03/05/17 03/05/17 15:22 17:30 20:16 WBC RBC Hgb Hct MCV MCH MCHC RDW Plt Count MPV Immature Gran % Seg Neutrophils % Lymphocytes % Monocytes % Eosinophils % Basophils % Neutrophils # Lymphocytes # Monocytes # Eosinophils # Basophils # Nucleated RBCs/100 WBC Platelet Estimate Immature Plt Fraction Hypochromasia Poikilocytosis Anisocytosis [place] Cells PT INR APTT 59.1 H ABG pH ABG pCO2 ABG pO2 ABG HCO3 ABG Total CO2 ABG O2 Saturation ABG Base Excess Blood Gas Modality Inspired O2 Sodium Potassium Chloride Carbon Dioxide BUN Creatinine Est GFR ( Amer) Est GFR (Non-Af Amer) BUN/Creatinine Ratio Glucose POC Glucose 141 H 134 H Calculated Osmolality Calcium Ionized Calcium Magnesium Total Bilirubin Direct Bilirubin Indirect Bilirubin AST ALT Alkaline Phosphatase Serum Total Protein Albumin Globulin Albumin/Globulin Ratio 03/05/17 03/06/17 03/06/17 23:12 00:00 03:10 WBC 24.4 H RBC 3.39 L Hgb 7.9 L Hct 26.5 L MCV 78.2 L MCH 23.3 L MCHC 29.8 L RDW 21.2 H Plt Count 133 L MPV 11.2 Immature Gran % 8.1 H Seg Neutrophils % 85.6 Lymphocytes % 2.2 Monocytes % 3.7 Eosinophils % 0.3 Basophils % 0.1 Neutrophils # 20.9 H Lymphocytes # 0.5 L Monocytes # 0.9 Eosinophils # 0.1 Basophils # 0.0 Nucleated RBCs/100 WBC 0.4 H Platelet Estimate Normal Immature Plt Fraction 6.1 Hypochromasia Present A Poikilocytosis 1+ A Anisocytosis 2+ A [place] Cells 1+ A PT INR APTT 60.8 H ABG pH ABG pCO2 ABG pO2 ABG HCO3 ABG Total CO2 ABG O2 Saturation ABG Base Excess Blood Gas Modality Inspired O2 Sodium Potassium Chloride Carbon Dioxide BUN Creatinine Est GFR ( Amer) Est GFR (Non-Af Amer) BUN/Creatinine Ratio Glucose POC Glucose 144 H Calculated Osmolality Calcium Ionized Calcium Magnesium Total Bilirubin Direct Bilirubin Indirect Bilirubin AST ALT Alkaline Phosphatase Serum Total Protein Albumin Globulin Albumin/Globulin Ratio 03/06/17 03/06/17 03/06/17 03:10 03:10 03:10 WBC RBC Hgb Hct MCV MCH MCHC RDW Plt Count MPV Immature Gran % Seg Neutrophils % Lymphocytes % Monocytes % Eosinophils % Basophils % Neutrophils # Lymphocytes # Monocytes # Eosinophils # Basophils # Nucleated RBCs/100 WBC Platelet Estimate Immature Plt Fraction Hypochromasia Poikilocytosis Anisocytosis Hiren Cells PT 12.6 H INR 1.2 APTT ABG pH ABG pCO2 ABG pO2 ABG HCO3 ABG Total CO2 ABG O2 Saturation ABG Base Excess Blood Gas Modality Inspired O2 Sodium 125 L Potassium 3.2 L Chloride 91 L Carbon Dioxide 25 BUN 42 H Creatinine 2.88 H Est GFR ( Amer) 19 L Est GFR (Non-Af Amer) 16 L BUN/Creatinine Ratio 15 Glucose 116 H POC Glucose Calculated Osmolality 271 L Calcium 8.5 L Ionized Calcium 1.18 Magnesium 1.5 L Total Bilirubin 1.1 Direct Bilirubin 0.9 H Indirect Bilirubin 0.2 AST 10 ALT 10 Alkaline Phosphatase 304 H Serum Total Protein 4.3 L Albumin 1.5 L Globulin 2.8 Albumin/Globulin Ratio 0.5 L 03/06/17 04:55 WBC RBC Hgb Hct MCV MCH MCHC RDW Plt Count MPV Immature Gran % Seg Neutrophils % Lymphocytes % Monocytes % Eosinophils % Basophils % Neutrophils # Lymphocytes # Monocytes # Eosinophils # Basophils # Nucleated RBCs/100 WBC Platelet Estimate Immature Plt Fraction Hypochromasia Poikilocytosis Anisocytosis Hiren Cells PT INR APTT ABG pH 7.33 ABG pCO2 48 H ABG pO2 75 L ABG HCO3 25.3 ABG Total CO2 26.8 H ABG O2 Saturation 94 L ABG Base Excess -0.9 Blood Gas Modality VC Inspired O2 30 Sodium Potassium Chloride Carbon Dioxide BUN Creatinine Est GFR ( Amer) Est GFR (Non-Af Amer) BUN/Creatinine Ratio Glucose POC Glucose Calculated Osmolality Calcium Ionized Calcium Magnesium Total Bilirubin Direct Bilirubin Indirect Bilirubin AST ALT Alkaline Phosphatase Serum Total Protein Albumin Globulin Albumin/Globulin Ratio - ABG Interpretation ABG results: ABG ABG pH 7.33 pH Units (7.32-7.45) 03/06/17 04:55 ABG pCO2 48 mmHg (35-45) H 03/06/17 04:55 ABG pO2 75 mmHg (85-104) L 03/06/17 04:55 ABG O2 Saturation 94 % (95-98) L 03/06/17 04:55 PT/INR, D-dimer PT 12.6 Seconds (9.4-12.1) H 03/06/17 03:10 D-Dimer 874 ng/mLFEU (0-500) H 03/03/17 04:18 Consult Discharge Plan - Plan Referrals: Henrry Mccullough MD [Primary Care Provider] -
[2017-03-06] MEDS: FentaNYL (PF) 1,000 MCG in 0.9 % Sodium Chloride 80 ML IVC SCH (11:16)
[2017-03-06] MEDS ORDERED: Sodium Phosphate 30 MMOL in D5% in Water 100 ML IVPB PRN (13:23)
[2017-03-06] MEDS ORDERED: Calcium Gluconate 1,000 MG in D5% in Water 100 ML IVPB PRN (13:23)
[2017-03-06] MEDS: Vasopressin 40 UNIT in D5% in Water 100 ML IV SCH (13:32)
--- NOTE | 2017-03-06 15:00 | Podiatry Consult Note ---
Date of Encounter: 03/06/17 Time of Encounter: 12:00 Assessment and Plan (1) Toe necrosis Current visit: Yes Status: Acute Necrosis of toes appears dry and not infectious at this time. Podiatry team does not recommend intervention at this time. Patient is not stable. Continue medical management of sepsis, respiratory failure and hepatic encephalopathy at this time She remains unresponsive on full respiratory support. It appears patient has a poor prognosis Necrosis of toes appears related to peripheral vasoconstriction caused by dependency on vasoconstrictive medications needed to maintain adequate blood pressure. Wean from vasoconstrictive agents as patient's condition tolerates along with active fluid resuscitation and hemodynamic stability No ulcers or need for dressings to be placed at this time. Continue to follow. If patient condition improves will consider possible surgical intervention if needed. Vascular team has been consult that and is following as well (2) Cirrhosis Current visit: Yes Status: Acute Qualifiers: Hepatic cirrhosis type: unspecified hepatic cirrhosis Ascites presence: without ascites Qualified Code(s): K74.60 - Unspecified cirrhosis of liver (3) DM type 2 (diabetes mellitus, type 2) Current visit: No Status: Chronic Qualifiers: Diabetes mellitus complication status: with kidney complications Diabetes mellitus complication detail: with nephropathy Diabetes mellitus long term care administrator insulin use: without fdc use Qualified Code(s): E11.21 - Type 2 diabetes mellitus with diabetic nephropathy (4) CKD (chronic kidney disease) stage 4, GFR 15-29 ml/min Current visit: No Status: Chronic History of Present Illness HPI: Ms. Rodriguez is a 71 year old female who was admitted to [facility] for acute hypercapnic respiratory failure, she was intubated in the ER and subsequently admitted to the ICU . Patient has a known medical history of end-stage renal disease, a decubitus ulcer and cirrhosis of the liver. Upon entering the room patient is noted to be on full mechanical ventilator support, dialysis nurse is at bedside running active dialysis, patient is unresponsive on ventilator without sedative medications. Podiatry has been consulted regarding ischemia of toes of bilateral feet. After speaking with nurse it is unknown the timeline of when ischemia to toes began. It is know that it was not present upon admission. It is known that patient was on 3 pressors at 1 point. Nurse states that patient has been off Levophed for less than 24 hours however while at bedside patient was restarted on Levophed due to drop in blood pressure to 54 /30. At this time it appears that necrosis of toes is due to the severe peripheral vasoconstriction caused by dependency on vasoconstrictive medications to maintain adequate blood pressure. At this time necrosis appears to be dry. There is no appearance of acute infection. Ischemia to toes in the presence of audible dorsalis pedis and posterior tibial pulses via use of doppler Past Med Surg Social Fam HX - Past Medical History Medical history: arthritis, atrial fibrillation, cirrhosis, CHF, COPD, diabetes , GERD, hyperlipidemia, hypertension, renal disease, other Psychiatric history: anxiety, panic disorder - Past Surgical History Surgical History: cholecystectomy, hysterectomy - Social History Smoking Status: Never smoker Smokeless Tobacco Status: No Alcohol use: none Drug use: none - Family History Mother History Unknown: Yes Living Status: Hx Family Cardiac Disorders: Yes Hx Family GI Disorders: Yes Hx Family Endocrine Disorder: Yes Father Living Status: Hx Family Cardiac Disorders: Yes Hx Family Cancer: Yes Sister Living Status: Still Living Hx Family Cancer: Yes (Breast Cancer, age 40's) Hx Family Endocrine Disorder: Yes (diabetes mellitus) Brother Living Status: Still Living Hx Family Cardiac Disorders: No Hx Family Respiratory Disorders: No Hx Family Cancer: No Hx Family GI Disorders: No Hx Family Endocrine Disorder: Yes Hx Family Neuromuscular Disorders: No Hx Family Neurologic Disorders: No Hx Family HEENT Disorders: No Hx Family Autoimmune Disorders: No Medications and Allergies Metoprolol [Lopressor] 12.5 mg PO HS 08/14/15 [History] Sertraline [Zoloft] 150 mg PO DAILY 08/14/15 [History] Sucralfate [Carafate] 2 gm PO BID 08/14/15 [History] Lactulose 10 gm PO QID 06/24/16 [History] Aspirin 81 mg PO DAILY 07/11/16 [History] Fluticasone/Vilanterol [Breo Ellipta 100-25 Mcg INH] 1 puff IH DAILY 07/11/16 [ History] Pantoprazole Sodium [Protonix] 40 mg PO DAILY 07/11/16 [History] Diltiazem [Cardizem] 30 mg PO TID 09/20/16 [History] Gabapentin [Neurontin] 100 mg PO BID 09/20/16 [History] Sennosides [Senna] 17.2 mg PO DAILY 09/20/16 [History] Simethicone [Gas-X] 120 mg PO BID PRN 09/20/16 [History] Folic Acid 1 mg PO DAILY #30 tablet 12/03/16 [Rx] Ferrous Gluconate 324 mg PO TID 01/12/17 [History] Warfarin [Coumadin] 2 mg PO HS 01/12/17 [History] Amino Acids/Protein Hydrolys [Pro-Stat Awc Liquid] 30 ml PO BID 01/28/17 [ History] Ipratropium/Albuterol Neb [Duoneb] 3 ml IH Q6HR PRN 01/28/17 [History] Mupirocin [Bactroban Oint] 1 appl TP MOWEFR 01/28/17 [History] Insulin ASPART [Novolog Flexpen] 0 - 10 units SQ TID #1 MDD PER SLIDING SCALE 02/06/17 [Rx] Lidocaine Patch [Lidoderm 5% patch] 1 each TP DAILY #6 adh..patch 02/06/17 [Rx] OxyCODONE Immed Rel [Roxicodone 5 MG] 5 mg PO Q6HR PRN #16 tablet 02/06/17 [Rx] Gentamicin OPTH Soln 1 drop OP TID 02/25/17 [History] Metoprolol [Lopressor] 12.5 mg PO SUTUTHSA@0800 02/25/17 [History] Torsemide 50 mg PO DAILY 02/25/17 [History] Allergies ceftriaxone [From Rocephin] Allergy (Severe, Verified 02/25/17 05:02) Anaphylaxis Occured at [facility]. Required ICU transfer, intubation, and mechanical ventilation. ciprofloxacin [From Cipro] Allergy (Mild, Verified 02/25/17 05:02) Rash sulfamethoxazole [From Bactrim] Allergy (Verified 02/25/17 05:02) See Comments trimethoprim [From Bactrim] Allergy (Verified 02/25/17 05:02) See Comments piperacillin [From Zosyn] Adverse Reaction (Verified 02/25/17 18:25) See Comments unknown, per list from ecf tazobactam [From Zosyn] Adverse Reaction (Verified 02/25/17 18:25) See Comments unknown, per list from f rozeta Allergy (Uncoded 02/25/17 05:02) See Comments All Systems Reviewed: A 10-system review of systems was performed and is negative for pertinent findings except as documented above in the HPI. Physical Exam - Constitutional Vitals: Temp Pulse Resp BP Pulse Ox 98.5 F 100 20 103/51 94 03/06/17 14:20 03/06/17 14:00 03/06/17 14:20 03/06/17 14:20 03/06/17 14:00 General appearance: no acute distress Exam: Patient is unresponsive. There is no scleral reaction to touch. Pupils are fixed and dilated bilaterally. There is minimal grimace to pain. Patient remains off all sedative medications. Left foot: There is cyanosis beginning to the dorsal midfoot extending to the dorsal aspects of toes #2 #3 and #4 which are noted to be ischemic. The ischemia extends to the plantar aspect of toes. Toes are non blanchable and cool to touch. There is pallor noted to toes #1 and #5 of left foot with sluggish capillary refill Right foot: There is ischemia noted to toes #2, #4 and #5. Ischemia is noted to dorsal and plantar aspects of toes. Toes are non blanchable and cool to touch. There is pallor noted to toes #1 and #3 and capillary refill is sluggish There is no noted ulceration or appearance of infection Dorsalis pedis and posterior tibial pulses per doppler There is no noted rigidity noted with PROM. No suspicion of DVT Results - Labs Result Diagrams: 03/07/17 03:15 03/07/17 03:15 Labs: Abnormal lab results WBC 24.4 K/mcL (4.3-11.1) H 03/06/17 03:10 RBC 3.39 M/mcL (3.82-4.97) L 03/06/17 03:10 Hgb 7.9 g/dL (11.5-15.4) L 03/06/17 03:10 Hct 26.5 % (35.3-44.9) L 03/06/17 03:10 MCV 78.2 fL (83.0-100.0) L 03/06/17 03:10 MCH 23.3 pg (28.0-33.3) L 03/06/17 03:10 MCHC 29.8 g/dL (31.6-35.5) L 03/06/17 03:10 RDW 21.2 % (11.5-14.5) H 03/06/17 03:10 Plt Count 133 K/mcL (140-400) L 03/06/17 03:10 Immature Gran % 8.1 % (0-4) H 03/06/17 03:10 Band Neutrophils % 28.0 % (0-4) H 03/04/17 04:54 Neutrophils # 20.9 K/mcL (1.6-8.9) H 03/06/17 03:10 Lymphocytes # 0.5 K/mcL (0.6-4.6) L 03/06/17 03:10 Nucleated RBCs/100 WBC 0.4 /100 WBC (0) H 03/06/17 03:10 Toxic Granulation Present (Not Present) A 03/03/17 03:15 Polychromasia 1+ (Not Present) A 03/02/17 08:10 Hypochromasia Present (Not Present) A 03/06/17 03:10 Poikilocytosis 1+ (Not Present) A 03/06/17 03:10 Basophilic Stippling 1+ (Not Present) A 02/25/17 07:11 Anisocytosis 2+ (Not Present) A 03/06/17 03:10 Microcytosis Present (Not Present) A 03/05/17 03:50 Macrocytosis Present (Not Present) A 03/05/17 03:50 Madison Cells 1+ (Not Present) A 03/06/17 03:10 Acanthocytes (Spur) 1+ (Not Present) A 03/05/17 03:50 PT 12.6 Seconds (9.4-12.1) H 03/06/17 03:10 APTT 60.8 Seconds (26.0-36.0) H 03/06/17 00:00 Fibrinogen 482 mg/dL (169-393) H 03/03/17 04:18 D-Dimer 874 ng/mLFEU (0-500) H 03/03/17 04:18 Heparin Anti-Xa, Unfract 0.01 IU/mL (0.30-0.70) L 03/01/17 04:10 ABG pCO2 48 mmHg (35-45) H 03/06/17 04:55 ABG pO2 75 mmHg (85-104) L 03/06/17 04:55 ABG Total CO2 26.8 mEq/L (20-26) H 03/06/17 04:55 ABG O2 Saturation 94 % (95-98) L 03/06/17 04:55 VBG pH 7.08 pH Units (7.32-7.42) L* 02/25/17 05:40 VBG pCO2 92 mmHg (41-51) H 02/25/17 05:40 VBG pO2 67 mmHg (25-40) H 02/25/17 05:40 VBG HCO3 27.3 mEq/L (21-27) H 02/25/17 05:40 Sodium 125 mEq/L (136-145) L 03/06/17 03:10 Potassium 3.2 mEq/L (3.5-4.5) L 03/06/17 03:10 Chloride 91 mEq/L (98-109) L 03/06/17 03:10 BUN 42 mg/dL (7-20) H 03/06/17 03:10 Creatinine 2.88 mg/dL (0.57-1.11) H 03/06/17 03:10 Est GFR ( Amer) 19 (> 60) L 03/06/17 03:10 Est GFR (Non-Af Amer) 16 (> 60) L 03/06/17 03:10 Glucose 116 mg/dL (70-99) H 03/06/17 03:10 POC Glucose 144 (58-89) H 03/05/17 23:12 Calculated Osmolality 271 (280-300) L 03/06/17 03:10 Calcium 8.5 mg/dL (8.6-10.8) L 03/06/17 03:10 Magnesium 1.5 mg/dL (1.6-2.6) L 03/06/17 03:10 Direct Bilirubin 0.9 mg/dL (0.0-0.5) H 03/06/17 03:10 Alkaline Phosphatase 304 Units/L (38-126) H 03/06/17 03:10 B-Natriuretic Peptide 2203 pg/mL (0-100) H 02/25/17 07:11 Serum Total Protein 4.3 g/dL (6.0-8.3) L 03/06/17 03:10 Albumin 1.5 g/dL (3.5-5.0) L 03/06/17 03:10 Albumin/Globulin Ratio 0.5 (1.1-2.2) L 03/06/17 03:10 Amylase 16 Units/L (25-125) L 03/04/17 15:00 Ur Specimen Adequacy See below A 02/25/17 06:28 Urine Clarity Turbid (Clear) A 02/25/17 06:28 Urine Protein >=300 mg/dL (Neg-Trace) H 02/25/17 06:28 Urine Ketones Trace mg/dL (Negative) H 02/25/17 06:28 Urine Blood Large (Negative) H 02/25/17 06:28 Ur Leukocyte Esterase Large (Negative) H 02/25/17 06:28 Ur Culture Indicated? YES (NO) A 02/25/17 06:28 Pleural Appearance Hazy (Clear) A 02/26/17 15:30 Pleural RBC 0.020 M/mcL (0.000-0.002) H 02/26/17 15:30 H & H 03/06/17 Range/Units 03:10 Hgb 7.9 L (11.5-15.4) g/dL Hct 26.5 L (35.3-44.9) % All other labs normal. Consult Discharge Plan - Plan Referrals: Henrry Mccullough MD [Primary Care Provider] -
--- NOTE | 2017-03-06 15:15 | Vascular/Endovasc Consult Note ---
Date of Encounter: 03/06/17 Time of Encounter: 13:00 Assessment and Plan (1) Toe gangrene Current Visit: Yes Status: Acute Patient presently has dry gangrene involving toes on both feet. There are mild ischemic changes to the other toes. There is no signs of infection or sepsis in the feet. This process indicates a vasospastic event related to use of vasoactive drugs for life-saving therapy. At this point there is no indication for vascular intervention. The podiatry service I know his also been consult it today. No immediate action is necessary at this time. I will remain available for further consultation or questions should the need arise. (2) ESRD (end stage renal disease) on dialysis Current Visit: Yes Status: Chronic Patient on long-term renal replacement therapy via left internal jugular vein permanent hemodialysis catheter (3) History of cirrhosis of liver Current Visit: No Status: Chronic (4) Pneumonia Current Visit: Yes Status: Acute Qualifiers: Pneumonia type: due to methicillin-resistant Staphylococcus aureus (MRSA) Laterality: bilateral Lung location: unspecified part of lung Qualified Code (s): J15.212 - Pneumonia due to Methicillin resistant Staphylococcus aureus (5) IDDM (insulin dependent diabetes mellitus) Current Visit: Yes Status: Chronic Diabetes is under medical care. (6) Atrial fibrillation Current Visit: Yes Status: Chronic Chronic atrial fibrillation under medical care Qualifiers: Atrial fibrillation type: chronic Qualified Code(s): I48.2 - Chronic atrial fibrillation - History of Present Illness Consult date: 03/06/17 Consult reason: Gangrenous toes History of present illness: Ms. Rodriguez is a 71 year old female Who was admitted on February 25 for acute and chronic respiratory failure. The patient went on to be intubated. She has a series of medical issues and has required vasopressors to maintain her blood pressure. It was noted over time that she had discoloration of her toes and vascular surgery was asked to see the patient today because of the changes. The patient remains intubated and can provide no history to me. There are no family members available to provide me with further history as well. As best I can determine she has multiple chronic medical problems including respiratory insufficiency, atrial fibrillation, congestive heart failure, cirrhosis, and end-stage renal disease requiring chronic hemodialysis. It is unclear as to when the toe changes began in light of her hemodynamic distress it would appear that this was mediated by the vasoactive drugs. Noninvasive testing was performed yesterday. This shows an ankle-brachial index of 1.03 on the right and 1.16 on the left. The waveforms were also within normal limits. Past Med Surg Social Fam HX - Past Medical History Medical history: arthritis, atrial fibrillation, cirrhosis, CHF, COPD, diabetes , GERD, hyperlipidemia, hypertension, renal disease, other Psychiatric history: anxiety, panic disorder - Past Surgical History Surgical History: cholecystectomy, hysterectomy - Social History Smoking Status: Never smoker Smokeless Tobacco Status: No Alcohol use: none Drug use: none - Family History Mother History Unknown: Yes Living Status: Hx Family Cardiac Disorders: Yes Hx Family GI Disorders: Yes Hx Family Endocrine Disorder: Yes Father Living Status: Hx Family Cardiac Disorders: Yes Hx Family Cancer: Yes Sister Living Status: Still Living Hx Family Cancer: Yes (Breast Cancer, age 40's) Hx Family Endocrine Disorder: Yes (diabetes mellitus) Brother Living Status: Still Living Hx Family Cardiac Disorders: No Hx Family Respiratory Disorders: No Hx Family Cancer: No Hx Family GI Disorders: No Hx Family Endocrine Disorder: Yes Hx Family Neuromuscular Disorders: No Hx Family Neurologic Disorders: No Hx Family HEENT Disorders: No Hx Family Autoimmune Disorders: No Medications and Allergies Metoprolol [Lopressor] 12.5 mg PO HS 08/14/15 [History] Sertraline [Zoloft] 150 mg PO DAILY 08/14/15 [History] Sucralfate [Carafate] 2 gm PO BID 08/14/15 [History] Lactulose 10 gm PO QID 06/24/16 [History] Aspirin 81 mg PO DAILY 07/11/16 [History] Fluticasone/Vilanterol [Breo Ellipta 100-25 Mcg INH] 1 puff IH DAILY 07/11/16 [ History] Pantoprazole Sodium [Protonix] 40 mg PO DAILY 07/11/16 [History] Diltiazem [Cardizem] 30 mg PO TID 09/20/16 [History] Gabapentin [Neurontin] 100 mg PO BID 09/20/16 [History] Sennosides [Senna] 17.2 mg PO DAILY 09/20/16 [History] Simethicone [Gas-X] 120 mg PO BID PRN 09/20/16 [History] Folic Acid 1 mg PO DAILY #30 tablet 12/03/16 [Rx] Ferrous Gluconate 324 mg PO TID 01/12/17 [History] Warfarin [Coumadin] 2 mg PO HS 01/12/17 [History] Amino Acids/Protein Hydrolys [Pro-Stat Awc Liquid] 30 ml PO BID 01/28/17 [ History] Ipratropium/Albuterol Neb [Duoneb] 3 ml IH Q6HR PRN 01/28/17 [History] Mupirocin [Bactroban Oint] 1 appl TP MOWEFR 01/28/17 [History] Insulin ASPART [Novolog Flexpen] 0 - 10 units SQ TID #1 MDD PER SLIDING SCALE 02/06/17 [Rx] Lidocaine Patch [Lidoderm 5% patch] 1 each TP DAILY #6 adh..patch 02/06/17 [Rx] OxyCODONE Immed Rel [Roxicodone 5 MG] 5 mg PO Q6HR PRN #16 tablet 02/06/17 [Rx] Gentamicin OPTH Soln 1 drop OP TID 02/25/17 [History] Metoprolol [Lopressor] 12.5 mg PO SUTUTHSA@0800 02/25/17 [History] Torsemide 50 mg PO DAILY 02/25/17 [History] Allergies ceftriaxone [From Rocephin] Allergy (Severe, Verified 02/25/17 05:02) Anaphylaxis Occured at [facility]. Required ICU transfer, intubation, and mechanical ventilation. ciprofloxacin [From Cipro] Allergy (Mild, Verified 02/25/17 05:02) Rash sulfamethoxazole [From Bactrim] Allergy (Verified 02/25/17 05:02) See Comments trimethoprim [From Bactrim] Allergy (Verified 02/25/17 05:02) See Comments piperacillin [From Zosyn] Adverse Reaction (Verified 02/25/17 18:25) See Comments unknown, per list from ecf tazobactam [From Zosyn] Adverse Reaction (Verified 02/25/17 18:25) See Comments unknown, per list from ecf rozeta Allergy (Uncoded 02/25/17 05:02) See Comments All Systems Review: A 10-system review of systems was performed and is negative for pertinent findings except as documented above in the HPI. Exam Vital Signs, Last 4 Hours Temp Pulse Resp BP Pulse Ox 03/06/17 14:20 98.5 F 20 103/51 03/06/17 14:05 102/51 03/06/17 14:00 100 21 103/51 94 03/06/17 13:50 103/53 03/06/17 13:35 102/54 03/06/17 13:30 25 103/53 94 03/06/17 13:20 106/54 03/06/17 13:05 113/53 03/06/17 13:00 98.5 F 98 23 113/53 94 03/06/17 12:50 106/50 03/06/17 12:35 116/50 03/06/17 12:20 103/57 03/06/17 12:05 81/44 03/06/17 12:00 82 22 87/39 93 03/06/17 11:50 88/45 03/06/17 11:35 91/52 03/06/17 11:20 23 99/50 93 Exam: Patient is seen in ICU bed #1. She is intubated and mechanically ventilated. She is not awake or alert. She does not respond to verbal or tactile stimulation. Patient is presently receiving hemodialysis treatment at this time and is on a Levophed drip to maintain her pressure during dialysis treatments. HEENT: Present: Atraumatic, Other (Patient hasn't endotracheal tube via the mouth. She has a permanent hemodialysis catheter in the left internal jugular vein.) Neck: Absent: Left Carotid bruit, Right Carotid bruit, Midline deformity, Tracheal deviation Cardiac: Present: Irregular Rhythm, Other (Patient has chronic atrial fibrillation) Lungs: Present: Decreased breath sounds Neuro: Present: Other (Patient is minimally responsive and does not respond appropriately to tactile or verbals stimulation) Abdomen: Present: Soft, Non-tender, Other (Patient is fecal leak incontinent with a large amount of stool in the bed extending to the level of her knees). Absent: Masses Vascular: Present: Pulse, absent (I am unable to palpate pedal pulses. I am able to identify Doppler signals at the dorsalis pedis and posterior tibial arteries bilaterally. Also she has a Doppler signal at the first webspace between the first and second toes bilaterally.), Other (The patient has black discolored toes involving the second third and fourth toe on the left and the second fourth and fifth toe on the right. There is no streaking or cellulitis or lymphangitis. The skin of her forefoot bilaterally is pale with some areas of decreased perfusion.) Consult Discharge Plan - Plan Referrals: Henrry Mccullough MD [Primary Care Provider] -
[2017-03-06] MEDS: Dexmedetomidine HCl 400 MCG/100 ML MLS IVC SCH (18:49)
[2017-03-06] MEDS: Magnesium Sulfate 2 GM in D5% in Water 100 ML IVPB PRN (21:18)
[2017-03-07] MEDS: Heparin 25,000 UNIT/500 ML D5W 25,000 UNIT/500 ML MLS IVC SCH ×2 (01:54→22:48)
[2017-03-07] MEDS: Aztreonam 500 MG in D5% in Water 100 ML IVPB SCH ×3 (01:57→18:31)
[2017-03-07 03:44] LABS: Basophils # 0.1 K/mcL (0.0-0.2); Basophils % 0.2 %; Hematocrit 29.5 % (35.3-44.9); Hemoglobin 8.6 g/dL (11.5-15.4); Immature Platelets 6.9 % (1.1-6.1); Lymphocytes # 0.5 K/mcL (0.6-4.6); Lymphocytes % 1.9 %; Mean Corpuscular HGB Conc 29.2 g/dL (31.6-35.5); Mean Corpuscular Volume 78.9 fL (83.0-100.0); Monocytes # 0.9 K/mcL (0.0-1.3); Monocytes % 3.1 %; Nucleated Red Blood Cells 0.4 /100 WBC (0); Platelet Count 131 K/mcL (140-400); Red Blood Count 3.74 M/mcL (3.82-4.97); Red Cell Distribution Width 21.7 % (11.5-14.5); Segmented Neutrophils % 88.8 %
[2017-03-07 03:47] LABS: Neutrophils # 24.8 K/mcL (1.6-8.9)
[2017-03-07 03:59] LABS: Albumin/Globulin Ratio 0.5 (1.1-2.2); Bilirubin,Direct 0.8 mg/dL (0.0-0.5); Bilirubin,Indirect 0.2 mg/dL (0.0-1.2); Calcium 8.5 mg/dL (8.6-10.8); Globulin 3.1 g/dL (2.4-3.5); Magnesium 1.9 mg/dL (1.6-2.6); Potassium 3.4 mEq/L (3.5-4.5); Total Protein 4.7 g/dL (6.0-8.3)
[2017-03-07 04:00] LABS: Albumin 1.6 g/dL (3.5-5.0)
[2017-03-07 04:07] LABS: Platelet Estimate Slight Decrease (Normal)
[2017-03-07 04:08] LABS: Anisocytosis 2+ (Not Present); Hypochromasia Present (Not Present); Target Cells 1+ (Not Present)
[2017-03-07] MEDS: Norepinephrine 8 MG in D5% in Water 250 ML IVC PRN ×2 (04:42→05:51)
[2017-03-07] MEDS: Lacri-Lube 3.5 GM TUBE BOTH EYES SCH ×5 (04:44→20:24)
[2017-03-07] MEDS: Insulin LISPRO 300 UNITS/3 ML VIAL SQ SCH ×5 (04:44→20:24)
[2017-03-07 05:56] LABS: ABG Base Excess 0.8 mEq/L (-2.0 to 3.0); ABG HCO3 25.3 mEQ/L (21-27); ABG Oxygen Saturation 98 % (95-98); ABG PCO2 39 mmHg (35-45); ABG PH 7.42 pH Units (7.32-7.45); ABG PO2 110 mmHg (85-104); ABG TCO2 26.5 mEq/L (20-26)
[2017-03-07 05:57] LABS: Blood Gas FiO2 30 %
[2017-03-07] MEDS: Pantoprazole 40 MG VIAL IVPB SCH (09:03)
[2017-03-07] MEDS: Folic Acid 1 MG TABLET PO SCH (09:07)
[2017-03-07] MEDS: Chlorhexidine Rinse 15 ML MOUTHWASH MM SCH ×2 (09:08→20:24)
[2017-03-07] MEDS: Aspirin 81 MG TAB.CHEW PO SCH (09:08)
[2017-03-07] MEDS: MetroNIDAZOLE 500 MG/100 ML 500 MG/100 ML BAG IVPB SCH (09:09)
[2017-03-07] MEDS: Lactulose Oral Soln 20 GM/30 ML UDC PO SCH ×3 (09:21→20:24)
[2017-03-07] MEDS: EPINEPHrine 1 MG in D5% in Water 250 ML IVC SCH (09:22)
[2017-03-07] MEDS: FentaNYL (PF) 1,000 MCG in 0.9 % Sodium Chloride 80 ML IVC SCH (09:23)
--- NOTE | 2017-03-07 09:38 | Nephrology Progress Note ---
Date of Encounter: 03/07/17 Time of Encounter: 09:30 - Assessment and Plan (1) End-stage renal disease Current Visit: No Status: Acute Acute on chronic respiratory failure, encephalopathy, cirrhosis. No HD today. Subjective Principal diagnosis: Encephalopathy Interval history: Intubated, on one pressor. FIO2 30, peep 8. Objective - Vital Signs Vital signs: Vital Signs Temp Pulse Resp BP Pulse Ox 03/07/17 07:59 97.6 F 03/07/17 07:30 22 108/51 97 03/07/17 06:00 82 26 110/54 94 03/07/17 05:00 81 22 102/49 95 03/07/17 04:40 24 112/54 96 03/07/17 04:11 98.0 F 03/07/17 04:00 82 23 104/58 98 03/07/17 03:00 83 22 102/54 98 03/07/17 02:45 23 107/55 99 03/07/17 02:00 79 22 103/58 99 03/07/17 01:00 79 22 106/51 97 03/07/17 00:50 23 104/43 96 03/07/17 00:00 85 23 107/45 97 03/06/17 23:40 98.1 F 03/06/17 22:38 25 93/47 95 03/06/17 22:00 85 25 102/46 97 03/06/17 21:00 86 25 108/48 99 03/06/17 20:00 85 24 105/48 97 03/06/17 19:37 98.5 F 03/06/17 18:00 90 24 110/58 96 03/06/17 17:00 93 22 115/58 94 03/06/17 16:00 90 21 112/56 95 03/06/17 15:54 98.3 F 03/06/17 15:40 22 112/56 95 03/06/17 15:15 90 20 114/59 96 03/06/17 14:20 98.5 F 20 103/51 03/06/17 14:05 102/51 03/06/17 14:00 100 21 103/51 94 03/06/17 13:50 103/53 03/06/17 13:35 102/54 03/06/17 13:30 25 103/53 94 03/06/17 13:20 106/54 07/26/17 13:05 113/53 03/06/17 13:00 98.5 F 98 23 113/53 94 03/06/17 12:50 106/50 03/06/17 12:35 116/50 03/06/17 12:20 103/57 03/06/17 12:05 81/44 03/06/17 12:00 82 22 87/39 93 03/06/17 11:50 88/45 03/06/17 11:35 91/52 03/06/17 11:20 23 99/50 93 03/06/17 11:05 97.7 F 20 98/43 03/06/17 11:00 82 20 97/45 93 03/06/17 10:00 88 22 103/53 92 Intake and Output 03/06/17 03/07/17 03/07/17 23:59 07:59 15:59 Intake Total 1044 / 1044 1471 / 1471 400 / 400 Output Total 1200 / 1200 500 / 500 Balance -156 / -156 971 / 971 400 / 400 Intake: IV Fluids 904 / 904 1282 / 1282 400 / 400 Heparin 25,000 UNIT/500 500 / 500 ML D5W 25,000 unit In 500 ml @ 14 UNIT/KG/HR 24. 332 mls/hr IVC .[id number] CANDE Rx#:[id number] Levophed 8 MG In Dextrose 100 / 100 282 / 282 5% 250 ML @ 5 MCG/MIN 9. 67 mls/hr IVC CONT PRN Rx #:[id number] Azactam 500 MG In 100 / 100 100 / 100 Dextrose 5% 100 ML @ 200 mls/hr IVPB Q8H CANDE Rx#: [id number] Zyvox Premix 600mg/300mL 300 / 300 300 / 300 600 mg In 300 ml @ 150 mls/hr IVPB Q12HR CANDE Rx# :[id number] Magnesium Sulfate 2 GM In 104 / 104 Dextrose 5% 100 ML @ 50 mls/hr IVPB Q6H PRN Rx#: [id number] Flagyl Premix 500 MG/100 100 / 100 100 / 100 ML 500 mg In 100 ml @ 100 mls/hr IVPB Q8HR CANDE Rx# :[id number] Potassium Chloride 10 mEq 200 / 200 300 / 300 100 / 100 /100mL 10 meq In 100 ml @ 100 mls/hr IVPB Q1H PRN Rx#:[id number] Tube Feeding 189 / 189 Free Water Intake Amount 140 / 140 Output: Urine 0 / 0 0 / 0 Rectal Tube 1000 / 1000 500 / 500 Catheter 200 / 200 Other: Stool Color Brown Blood Glucose* 192 145 - General Appearance General appearance: Present: well-developed, well-nourished, appears started age EENT: Present: mucous membranes moist Neck: Present: no JVD Respiratory: Present: course breath sounds Cardiology: Present: no edema, irregular rhythm Gastrointestinal: Present: hypoactive bowel sounds Integumentary: Present: warm and dry Additional Comments: mottled feet. - Lab 03/07/17 03:15 03/07/17 03:15 Most recent lab results ABG pH 7.42 pH Units (7.32-7.45) 03/07/17 05:45 ABG pCO2 39 mmHg (35-45) 03/07/17 05:45 ABG pO2 110 mmHg (85-104) H 03/07/17 05:45 ABG HCO3 25.3 mEQ/L (21-27) 03/07/17 05:45 ABG O2 Saturation 98 % (95-98) 03/07/17 05:45 Calcium 8.5 mg/dL (8.6-10.8) L 03/07/17 03:15 Phosphorus 2.6 mg/dL (2.3-4.7) 03/07/17 03:15 Magnesium 1.9 mg/dL (1.6-2.6) 03/07/17 03:15 - Stroke Is the patient on any antithrombotics?: No Contraindication Antithromb by Day Two: Not Indicated - Due to Bleeding Disorder or Risk of Bleeding (Coagulapathy with elevated INR) - VTE Reasons for not Prescribing Prophylaxis: Not indicated-Anticoagulated or INR therapeutic - AMI Reason for No Aspirin at Discharge: Drug treatment not indicated Consult Discharge Plan - Plan Referrals: Henrry Mccullough MD [Primary Care Provider] -
--- NOTE | 2017-03-07 09:44 | Palliative Progress Note ---
Date of Encounter: 03/07/17 Time of Encounter: 09:40 - Assessment and plan (1) Respiratory failure Current Visit: Yes Status: Acute Assessment and plan: Remains on vent Qualifiers: Chronicity: unspecified Respiratory failure complication: hypoxia and hypercapnia Qualified Code(s): J96.91 - Respiratory failure, unspecified with hypoxia; J96.92 - Respiratory failure, unspecified with hypercapnia (2) Decubitus ulcer of sacral region, unstageable Current Visit: Yes Status: Acute Assessment and plan: Santyl dressings being performed per surgery recommendations (3) ESRD (end stage renal disease) on dialysis Current Visit: Yes Status: Acute (4) Goals of care, counseling/discussion Current Visit: Yes Status: Acute Assessment and plan: Continue to follow clinical course assist with goals of care discussion as needed. No family present at this time. If she does not improve significantly by first of week, I suspect family will desire compassionate extubation. - Time Spent With Patient Total time spent is greater than 50% in coordination of care (as documented) at patient's floor/unit and/or counseling patient: 25 - 35 minutes - Subjective Interval history: Patient remains off sedation and on ventilator. Moves head/feet occasionally. Does not open eyes with stimulation. does not follow commands. Trickle feeds currently infusing. - Constitutional Vitals: Abnormal lab results WBC 27.9 K/mcL (4.3-11.1) H 03/07/17 03:15 RBC 3.74 M/mcL (3.82-4.97) L 03/07/17 03:15 Hgb 8.6 g/dL (11.5-15.4) L 03/07/17 03:15 Hct 29.5 % (35.3-44.9) L 03/07/17 03:15 MCV 78.9 fL (83.0-100.0) L 03/07/17 03:15 MCH 23.0 pg (28.0-33.3) L 03/07/17 03:15 MCHC 29.2 g/dL (31.6-35.5) L 03/07/17 03:15 RDW 21.7 % (11.5-14.5) H 03/07/17 03:15 Plt Count 131 K/mcL (140-400) L 03/07/17 03:15 Immature Gran % 6.0 % (0-4) H 03/07/17 03:15 Band Neutrophils % 28.0 % (0-4) H 03/04/17 04:54 Neutrophils # 24.8 K/mcL (1.6-8.9) H 03/07/17 03:15 Lymphocytes # 0.5 K/mcL (0.6-4.6) L 03/07/17 03:15 Nucleated RBCs/100 WBC 0.4 /100 WBC (0) H 03/07/17 03:15 Toxic Granulation Present (Not Present) A 03/03/17 03:15 Platelet Estimate Slight Decrease (Normal) L 03/07/17 03:15 Immature Plt Fraction 6.9 % (1.1-6.1) H 03/07/17 03:15 Polychromasia 1+ (Not Present) A 03/02/17 08:10 Hypochromasia Present (Not Present) A 03/07/17 03:15 Poikilocytosis 1+ (Not Present) A 03/06/17 03:10 Basophilic Stippling 1+ (Not Present) A 02/25/17 07:11 Anisocytosis 2+ (Not Present) A 03/07/17 03:15 Microcytosis Present (Not Present) A 03/05/17 03:50 Macrocytosis Present (Not Present) A 03/05/17 03:50 Target Cells 1+ (Not Present) A 03/07/17 03:15 Whiteford Cells 1+ (Not Present) A 03/06/17 03:10 Acanthocytes (Spur) 1+ (Not Present) A 03/05/17 03:50 PT 12.6 Seconds (9.4-12.1) H 03/06/17 03:10 APTT 74.0 Seconds (26.0-36.0) H 03/07/17 03:36 Fibrinogen 482 mg/dL (169-393) H 03/03/17 04:18 D-Dimer 874 ng/mLFEU (0-500) H 03/03/17 04:18 Heparin Anti-Xa, Unfract 0.01 IU/mL (0.30-0.70) L 03/01/17 04:10 ABG pO2 110 mmHg (85-104) H 03/07/17 05:45 ABG Total CO2 26.5 mEq/L (20-26) H 03/07/17 05:45 VBG pH 7.08 pH Units (7.32-7.42) L* 02/25/17 05:40 VBG pCO2 92 mmHg (41-51) H 02/25/17 05:40 VBG pO2 67 mmHg (25-40) H 02/25/17 05:40 VBG HCO3 27.3 mEq/L (21-27) H 02/25/17 05:40 Sodium 133 mEq/L (136-145) L D 03/07/17 03:15 Potassium 3.4 mEq/L (3.5-4.5) L 03/07/17 03:15 BUN 26 mg/dL (7-20) H D 03/07/17 03:15 Creatinine 2.16 mg/dL (0.57-1.11) H 03/07/17 03:15 Est GFR ( Amer) 27 (> 60) L 03/07/17 03:15 Est GFR (Non-Af Amer) 22 (> 60) L 03/07/17 03:15 Glucose 158 mg/dL (70-99) H 03/07/17 03:15 POC Glucose 192 (58-89) H 03/06/17 23:25 Calcium 8.5 mg/dL (8.6-10.8) L 03/07/17 03:15 Direct Bilirubin 0.8 mg/dL (0.0-0.5) H 03/07/17 03:15 Alkaline Phosphatase 613 Units/L (38-126) H 03/07/17 03:15 B-Natriuretic Peptide 2203 pg/mL (0-100) H 02/25/17 07:11 Serum Total Protein 4.7 g/dL (6.0-8.3) L 03/07/17 03:15 Albumin 1.6 g/dL (3.5-5.0) L 03/07/17 03:15 Albumin/Globulin Ratio 0.5 (1.1-2.2) L 03/07/17 03:15 Amylase 16 Units/L (25-125) L 03/04/17 15:00 Ur Specimen Adequacy See below A 02/25/17 06:28 Urine Clarity Turbid (Clear) A 02/25/17 06:28 Urine Protein >=300 mg/dL (Neg-Trace) H 02/25/17 06:28 Urine Ketones Trace mg/dL (Negative) H 02/25/17 06:28 Urine Blood Large (Negative) H 02/25/17 06:28 Ur Leukocyte Esterase Large (Negative) H 02/25/17 06:28 Ur Culture Indicated? YES (NO) A 02/25/17 06:28 Pleural Appearance Hazy (Clear) A 02/26/17 15:30 Pleural RBC 0.020 M/mcL (0.000-0.002) H 02/26/17 15:30 General appearance: Present: no acute distress - Respiratory Respiratory exam: Present: CTAB Additional comments: Breath sounds course. Remains on vent - Cardiovascular Cardiovascular exam: Present: +S1, +S2 - GI/Abdominal GI/Abdominal exam: Present: hypoactive bowel sounds, soft Additional comments: Trickle feeds at 15ml/hr - Extremities Exam Additional comments: 6/10 toes with cyanosis. Other toes with mottling appearance - Neurological Exam Additional comments: Patient remains unable to follow commands. Does not open eyes to verbal or tactile stimulation. Does does move head occasionally. - Skin Skin exam: Present: dry, pallor, warm Palliative Quality Palliative Quality: Screen for Code Status: Yes, Screen for Goals of Care: Yes, Screen for Pain: Yes, If Pain Regimen Started, Initiate Bowel Regimen: Yes, Screen for Nausea/Vomitting: Yes Code Status: 03/01/17 14:19 CODE [Resuscitation Status: Active] [RES] Routine Comment: Resuscitation Status: DNR-Comfort Care-Arrest - Labs CBC & Chem 7: 03/07/17 03:15 03/07/17 03:15 Labs: Laboratory Results - last 24 hr 03/06/17 03/06/17 03/06/17 07:08 13:20 15:12 WBC RBC Hgb Hct MCV MCH MCHC RDW Plt Count MPV Immature Gran % Seg Neutrophils % Lymphocytes % Monocytes % Eosinophils % Basophils % Neutrophils # Lymphocytes # Monocytes # Eosinophils # Basophils # Nucleated RBCs/100 WBC Platelet Estimate Immature Plt Fraction Hypochromasia Anisocytosis Target Cells APTT ABG pH ABG pCO2 ABG pO2 ABG HCO3 ABG Total CO2 ABG O2 Saturation ABG Base Excess Blood Gas Modality Inspired O2 Sodium Potassium Chloride Carbon Dioxide BUN Creatinine Est GFR ( Amer) Est GFR (Non-Af Amer) BUN/Creatinine Ratio Glucose POC Glucose 157 H 105 H 107 H Calculated Osmolality Calcium Ionized Calcium Phosphorus Magnesium Total Bilirubin Direct Bilirubin Indirect Bilirubin AST ALT Alkaline Phosphatase Serum Total Protein Albumin Globulin Albumin/Globulin Ratio 03/06/17 03/06/17 03/07/17 19:40 23:25 03:15 WBC 27.9 H RBC 3.74 L Hgb 8.6 L Hct 29.5 L MCV 78.9 L MCH 23.0 L MCHC 29.2 L RDW 21.7 H Plt Count 131 L MPV 10.0 Immature Gran % 6.0 H Seg Neutrophils % 88.8 Lymphocytes % 1.9 Monocytes % 3.1 Eosinophils % 0.0 Basophils % 0.2 Neutrophils # 24.8 H Lymphocytes # 0.5 L Monocytes # 0.9 Eosinophils # 0.0 Basophils # 0.1 Nucleated RBCs/100 WBC 0.4 H Platelet Estimate Slight Decrease L Immature Plt Fraction 6.9 H Hypochromasia Present A Anisocytosis 2+ A Target Cells 1+ A APTT ABG pH ABG pCO2 ABG pO2 ABG HCO3 ABG Total CO2 ABG O2 Saturation ABG Base Excess Blood Gas Modality Inspired O2 Sodium Potassium Chloride Carbon Dioxide BUN Creatinine Est GFR ( Amer) Est GFR (Non-Af Amer) BUN/Creatinine Ratio Glucose POC Glucose 195 H 192 H Calculated Osmolality Calcium Ionized Calcium Phosphorus Magnesium Total Bilirubin Direct Bilirubin Indirect Bilirubin AST ALT Alkaline Phosphatase Serum Total Protein Albumin Globulin Albumin/Globulin Ratio 03/07/17 03/07/17 03/07/17 03:15 03:15 03:15 WBC RBC Hgb Hct MCV MCH MCHC RDW Plt Count MPV Immature Gran % Seg Neutrophils % Lymphocytes % Monocytes % Eosinophils % Basophils % Neutrophils # Lymphocytes # Monocytes # Eosinophils # Basophils # Nucleated RBCs/100 WBC Platelet Estimate Immature Plt Fraction Hypochromasia Anisocytosis Target Cells APTT ABG pH ABG pCO2 ABG pO2 ABG HCO3 ABG Total CO2 ABG O2 Saturation ABG Base Excess Blood Gas Modality Inspired O2 Sodium 133 L D Potassium 3.4 L Chloride 100 Carbon Dioxide 25 BUN 26 H D Creatinine 2.16 H Est GFR ( Amer) 27 L Est GFR (Non-Af Amer) 22 L BUN/Creatinine Ratio 12 Glucose 158 H POC Glucose Calculated Osmolality 284 Calcium 8.5 L Ionized Calcium 1.16 Phosphorus 2.6 Magnesium 1.9 Total Bilirubin 1.0 Direct Bilirubin 0.8 H Indirect Bilirubin 0.2 AST 15 ALT 13 Alkaline Phosphatase 613 H Serum Total Protein 4.7 L Albumin 1.6 L Globulin 3.1 Albumin/Globulin Ratio 0.5 L 03/07/17 03/07/17 03:36 05:45 WBC RBC Hgb Hct MCV MCH MCHC RDW Plt Count MPV Immature Gran % Seg Neutrophils % Lymphocytes % Monocytes % Eosinophils % Basophils % Neutrophils # Lymphocytes # Monocytes # Eosinophils # Basophils # Nucleated RBCs/100 WBC Platelet Estimate Immature Plt Fraction Hypochromasia Anisocytosis Target Cells APTT 74.0 H ABG pH 7.42 ABG pCO2 39 ABG pO2 110 H ABG HCO3 25.3 ABG Total CO2 26.5 H ABG O2 Saturation 98 ABG Base Excess 0.8 Blood Gas Modality VCT Inspired O2 30 Sodium Potassium Chloride Carbon Dioxide BUN Creatinine Est GFR ( Amer) Est GFR (Non-Af Amer) BUN/Creatinine Ratio Glucose POC Glucose Calculated Osmolality Calcium Ionized Calcium Phosphorus Magnesium Total Bilirubin Direct Bilirubin Indirect Bilirubin AST ALT Alkaline Phosphatase Serum Total Protein Albumin Globulin Albumin/Globulin Ratio - ABG Interpretation ABG results: ABG ABG pH 7.42 pH Units (7.32-7.45) 03/07/17 05:45 ABG pCO2 39 mmHg (35-45) 03/07/17 05:45 ABG pO2 110 mmHg (85-104) H 03/07/17 05:45 ABG O2 Saturation 98 % (95-98) 03/07/17 05:45 PT/INR, D-dimer PT 12.6 Seconds (9.4-12.1) H 03/06/17 03:10 D-Dimer 874 ng/mLFEU (0-500) H 03/03/17 04:18 Consult Discharge Plan - Plan Referrals: Henrry Mccullough MD [Primary Care Provider] -
--- NOTE | 2017-03-07 10:34 | Infectious Disease Progress No ---
Date of Encounter: 03/06/17 Time of Encounter: 14:00 - Assessment and Plan (1) Septic shock Current Visit: Yes Status: Acute The patient had three SIRS criteria plus hypotension requiring vasopressor support. Etiology not entirely clear: PNA vs. sacral wound infection vs. other. Improved. The patient has been afebrile. Leukocytosis is improving. She has not had any tachycardia. Peripheral blood cultures drawn 02/26/17 are negative 2/2 sets. Blood cultures from the [facility] are positive for GPR 1/2 sets --> likely contaminant. Repeat blood cultures 03/04/17 are NGTD x 2 sets. Workup thus far has been non-revealing of any source of infection to explain the patient's septic shock. Continue linezolid 600mg IV BID. Continue Aztreonam 500mg IV Q8H. Continue Flagyl 500mg IV TID. Duration of treatment depends on the clinical picture. Monitor renal function and for drug toxicity and dose-adjust antibiotics. (2) UTI (urinary tract infection) Current Visit: No Status: Acute Causative organism VRE per culture. Not sure that this is a true infection. The patient is HD and makes very little urine. Repeat urine culture pending. Continue Zyvox 600mg IV BID for now. Duration of treatment depends on the clinical picture. Qualifiers: Urinary tract infection type: catheter-associated UTI Indwelling urinary catheter type: indwelling urethral catheter Encounter type: initial encounter Qualified Code(s): T83.511A - Infection and inflammatory reaction due to indwelling urethral catheter, initial encounter; N39.0 - Urinary tract infection , site not specified (3) Bacteremia Current Visit: Yes Status: Acute Contamination vs. true infection of tunneled dialysis catheter. 1/2 GPR likley represents contamination. Repeat blood cultures from 03/04/17 are pending. We will follow up with those results. (4) Respiratory failure Current Visit: Yes Status: Acute Acute on chronic hypercapneic and hpoxemic. Currently on Ventilatory support. Pulmonology is managing. Qualifiers: Chronicity: unspecified Respiratory failure complication: hypoxia and hypercapnia Qualified Code(s): J96.91 - Respiratory failure, unspecified with hypoxia; J96.92 - Respiratory failure, unspecified with hypercapnia (5) Vancomycin resistant Enterococcus infection Current Visit: Yes Status: Acute We will follow up with repeat cultures. (6) Closed fracture of greater trochanter of femur Current Visit: Yes Status: Acute Closed nondiscplaced fracture of the right femural greater trochanter. No evidence on infection on imaging. I think this is unlikely to be the source of infection. Qualifiers: Encounter type: subsequent encounter Fracture alignment: nondisplaced Laterality: right Fracture healing: with malunion Qualified Code(s): S72.114P - Nondisplaced fracture of greater trochanter of right femur, subsequent encounter for closed fracture with malunion (7) Decubitus ulcer of sacral region, unstageable Current Visit: Yes Status: Acute Patient has large unstagable sacral decubitus ulcer with large eschar. Dose not seem to be overtly infected on exam. Would recommend wound care if not already following. (8) Lower limb ischemia Current Visit: Yes Status: Acute Possibly from pressor agents. Normal preliminary ABIs. Developed after admission. Doubt an infectious process. (9) Atrial fibrillation Current Visit: Yes Status: Chronic Qualifiers: Atrial fibrillation type: chronic Qualified Code(s): I48.2 - Chronic atrial fibrillation (10) Chronic anemia Current Visit: No Status: Chronic (11) Cirrhosis Current Visit: Yes Status: Chronic Qualifiers: Hepatic cirrhosis type: other cirrhosis Qualified Code(s): K74.69 - Other cirrhosis of liver (12) End stage renal disease Current Visit: No Status: Acute - Subjective Interval history: Patient seen and examined. No acute events noted overnight. Patient remains on the ventilator, minimally responsive to painful stimuli only despite not being on any sedation. Patient unable to provide any ROS information. No new issues per nursing. Infect Dis PN-Objective Data - Labs CBC & Chem 7: 03/08/17 04:18 03/08/17 04:18 Labs: Laboratory Results - last 24 hr 03/06/17 03/06/17 03/06/17 07:08 13:20 15:12 WBC RBC Hgb Hct MCV MCH MCHC RDW Plt Count MPV Immature Gran % Seg Neutrophils % Lymphocytes % Monocytes % Eosinophils % Basophils % Neutrophils # Lymphocytes # Monocytes # Eosinophils # Basophils # Nucleated RBCs/100 WBC Platelet Estimate Immature Plt Fraction Hypochromasia Anisocytosis Target Cells APTT ABG pH ABG pCO2 ABG pO2 ABG HCO3 ABG Total CO2 ABG O2 Saturation ABG Base Excess Blood Gas Modality Inspired O2 Sodium Potassium Chloride Carbon Dioxide BUN Creatinine Est GFR ( Amer) Est GFR (Non-Af Amer) BUN/Creatinine Ratio Glucose POC Glucose 157 H 105 H 107 H Calculated Osmolality Calcium Ionized Calcium Phosphorus Magnesium Total Bilirubin Direct Bilirubin Indirect Bilirubin AST ALT Alkaline Phosphatase Serum Total Protein Albumin Globulin Albumin/Globulin Ratio 03/06/17 03/06/17 03/07/17 19:40 23:25 03:15 WBC 27.9 H RBC 3.74 L Hgb 8.6 L Hct 29.5 L MCV 78.9 L MCH 23.0 L MCHC 29.2 L RDW 21.7 H Plt Count 131 L MPV 10.0 Immature Gran % 6.0 H Seg Neutrophils % 88.8 Lymphocytes % 1.9 Monocytes % 3.1 Eosinophils % 0.0 Basophils % 0.2 Neutrophils # 24.8 H Lymphocytes # 0.5 L Monocytes # 0.9 Eosinophils # 0.0 Basophils # 0.1 Nucleated RBCs/100 WBC 0.4 H Platelet Estimate Slight Decrease L Immature Plt Fraction 6.9 H Hypochromasia Present A Anisocytosis 2+ A Target Cells 1+ A APTT ABG pH ABG pCO2 ABG pO2 ABG HCO3 ABG Total CO2 ABG O2 Saturation ABG Base Excess Blood Gas Modality Inspired O2 Sodium Potassium Chloride Carbon Dioxide BUN Creatinine Est GFR ( Amer) Est GFR (Non-Af Amer) BUN/Creatinine Ratio Glucose POC Glucose 195 H 192 H Calculated Osmolality Calcium Ionized Calcium Phosphorus Magnesium Total Bilirubin Direct Bilirubin Indirect Bilirubin AST ALT Alkaline Phosphatase Serum Total Protein Albumin Globulin Albumin/Globulin Ratio 03/07/17 03/07/17 03/07/17 03:15 03:15 03:15 WBC RBC Hgb Hct MCV MCH MCHC RDW Plt Count MPV Immature Gran % Seg Neutrophils % Lymphocytes % Monocytes % Eosinophils % Basophils % Neutrophils # Lymphocytes # Monocytes # Eosinophils # Basophils # Nucleated RBCs/100 WBC Platelet Estimate Immature Plt Fraction Hypochromasia Anisocytosis Target Cells APTT ABG pH ABG pCO2 ABG pO2 ABG HCO3 ABG Total CO2 ABG O2 Saturation ABG Base Excess Blood Gas Modality Inspired O2 Sodium 133 L D Potassium 3.4 L Chloride 100 Carbon Dioxide 25 BUN 26 H D Creatinine 2.16 H Est GFR ( Amer) 27 L Est GFR (Non-Af Amer) 22 L BUN/Creatinine Ratio 12 Glucose 158 H POC Glucose Calculated Osmolality 284 Calcium 8.5 L Ionized Calcium 1.16 Phosphorus 2.6 Magnesium 1.9 Total Bilirubin 1.0 Direct Bilirubin 0.8 H Indirect Bilirubin 0.2 AST 15 ALT 13 Alkaline Phosphatase 613 H Serum Total Protein 4.7 L Albumin 1.6 L Globulin 3.1 Albumin/Globulin Ratio 0.5 L 03/07/17 03/07/17 03:36 05:45 WBC RBC Hgb Hct MCV MCH MCHC RDW Plt Count MPV Immature Gran % Seg Neutrophils % Lymphocytes % Monocytes % Eosinophils % Basophils % Neutrophils # Lymphocytes # Monocytes # Eosinophils # Basophils # Nucleated RBCs/100 WBC Platelet Estimate Immature Plt Fraction Hypochromasia Anisocytosis Target Cells APTT 74.0 H ABG pH 7.42 ABG pCO2 39 ABG pO2 110 H ABG HCO3 25.3 ABG Total CO2 26.5 H ABG O2 Saturation 98 ABG Base Excess 0.8 Blood Gas Modality VCT Inspired O2 30 Sodium Potassium Chloride Carbon Dioxide BUN Creatinine Est GFR ( Amer) Est GFR (Non-Af Amer) BUN/Creatinine Ratio Glucose POC Glucose Calculated Osmolality Calcium Ionized Calcium Phosphorus Magnesium Total Bilirubin Direct Bilirubin Indirect Bilirubin AST ALT Alkaline Phosphatase Serum Total Protein Albumin Globulin Albumin/Globulin Ratio Cultures: Cultures 03/04/17 15:47 Urine Culture - Preliminary Urine,Catheterized Gram Positive Cocci Yeast Species 03/05/17 11:40 Sputum Culture - Final Sputum Methicillin Resistant S.aureus 03/04/17 15:00 Blood Culture - Preliminary Central Venous Catheter No growth. 03/04/17 15:00 Blood Culture - Preliminary Central Venous Catheter No growth. 03/04/17 19:50 Blood Culture - Preliminary Peripheral Venipuncture No growth. 02/26/17 12:41 Blood Culture - Preliminary Port System Gram Positive Rods 02/26/17 12:41 Blood Culture - Final Port System No growth. 02/26/17 10:27 Blood Culture - Final Peripheral Venipuncture No growth. 02/26/17 10:20 Blood Culture - Final Peripheral Venipuncture No growth. 02/26/17 15:30 Body Fluid Culture - Final Pleural Fluid 02/25/17 14:20 Sputum Culture - Final Sputum Kluyvera ascorbata Serology 03/05/17 02/27/17 02/26/17 Range/Units 04:10 16:20 15:30 Pleural Fluid Volume 15.0 mL Pleural Appearance Hazy A (Clear) Pleural pH 7.51 (No Ref Range) pH Units Pleural RBC 0.020 H (0.000 - 0.002) M/mcL Pleural Tot Nuc Cell 181 (0-1000) TNC/mcL Pleural Neutrophils 47.0 % Pleural Band Neuts 3.0 % Pleural Eosinophils Test Not Performed Pleural Basophils Test Not Performed Pleural Lymphocytes % 35.0 % Pleural Monocytes % 5.0 % Pleural Other Cells % 10.0 % Pleural Total Protein 2.6 (No Ref Range) g/dL Pleural Albumin 1.5 (No Ref Range) g/dL Pleural LDH 115 (No Ref Range) Units/L Pleural Glucose 171 (No Ref Range) mg/dL Pleural Amylase 21 (No Ref Range) Units/L Pleural Cholesterol 46 (No Ref Range) mg/dL Pleural Triglycerides 25 (No Ref Range) mg/dL Stl C. cayetanensis PCR Not detected (Not detect) Stool Rotavirus A PCR Not detected (Not detect) Stl Adenov F 40/41 PCR Not detected (Not detect) Stool Astrovirus (PCR) Not detected (Not detect) Stool Campylobacter PCR Not detected (Not detect) Stl C. diff Tox A/B PCR Not detected (Not detect) Stool Cryptosporidium PCR Not detected (Not detect) Stl Sh Tox Pr E STEC PCR Not detected (Not detect) Stool E coli O157 PCR Not detected (Not detect) Stl Enterotoxigenic E PCR Not detected (Not detect) Stool EPEC (PCR) Not detected (Not detect) Stool EAEC (PCR) Not detected (Not detect) Stl E. histolytica PCR Not detected (Not detect) Stool Giardia Lamblia PCR Not detected (Not detect) Stool Salmonella PCR Not detected (Not detect) Stool Sapovirus (PCR) Not detected (Not detect) Stl P. shigelloides PCR Not detected (Not detect) Stl Shigella/EIEC PCR Not detected (Not detect) St Y.enterocolitica PCR Not detected (Not detect) Stool Vibrio (PCR) Not detected (Not detect) Stl Vibrio cholerae PCR Not detected (Not detect) Stl Norovirus GI/GII PCR Not detected (Not detect) Stl GI Panel (PCR) Com See below Chlamy pneumoniae PCR Not Detected (Not Detect) Adenovirus (PCR) Not Detected (Not Detect) B. pertussis DNA (PCR) Not Detected (Not Detect) Coronavirus OC43 (PCR) Not Detected (Not Detect) Coronavirus HKU1 (PCR) Not Detected (Not Detect) Coronavirus 229E (PCR) Not Detected (Not Detect) Coronavirus NL63 (PCR) Not Detected (Not Detect) Hep Bs Antigen (Nonreactive) Hep Bs Antibody mIU/mL Human Metapneumovir PCR Not Detected (Not Detect) Influenza A (H1) PCR Not Detected (Not Detect) Influ A (H1N1/09) PCR Not Detected (Not Detect) Influenza A (H3) PCR Not Detected (Not Detect) Influenza A Untype (PCR) Not Detected (Not Detect) Influenza Type B (PCR) Not Detected (Not Detect) M.pneumoniae DNA (PCR) Not Detected (Not Detect) Parainfluenza 1 (PCR) Not Detected (Not Detect) Parainfluenza 2 (PCR) Not Detected (Not Detect) Parainfluenza 3 (PCR) Not Detected (Not Detect) Parainfluenza 4 (PCR) Not Detected (Not Detect) RSV (PCR) Not Detected (Not Detect) Entero/Rhino (PCR) Not Detected (Not Detect) 02/25/17 Range/Units 11:00 Pleural Fluid Volume mL Pleural Appearance (Clear) Pleural pH (No Ref Range) pH Units Pleural RBC (0.000 - 0.002) M/mcL Pleural Tot Nuc Cell (0-1000) TNC/mcL Pleural Neutrophils % Pleural Band Neuts % Pleural Eosinophils Pleural Basophils Pleural Lymphocytes % % Pleural Monocytes % % Pleural Other Cells % % Pleural Total Protein (No Ref Range) g/dL Pleural Albumin (No Ref Range) g/dL Pleural LDH (No Ref Range) Units/L Pleural Glucose (No Ref Range) mg/dL Pleural Amylase (No Ref Range) Units/L Pleural Cholesterol (No Ref Range) mg/dL Pleural Triglycerides (No Ref Range) mg/dL Stl C. cayetanensis PCR (Not detect) Stool Rotavirus A PCR (Not detect) Stl Adenov F 40/41 PCR (Not detect) Stool Astrovirus (PCR) (Not detect) Stool Campylobacter PCR (Not detect) Stl C. diff Tox A/B PCR (Not detect) Stool Cryptosporidium PCR (Not detect) Stl Sh Tox Pr E STEC PCR (Not detect) Stool E coli O157 PCR (Not detect) Stl Enterotoxigenic E PCR (Not detect) Stool EPEC (PCR) (Not detect) Stool EAEC (PCR) (Not detect) Stl E. histolytica PCR (Not detect) Stool Giardia Lamblia PCR (Not detect) Stool Salmonella PCR (Not detect) Stool Sapovirus (PCR) (Not detect) Stl P. shigelloides PCR (Not detect) Stl Shigella/EIEC PCR (Not detect) St Y.enterocolitica PCR (Not detect) Stool Vibrio (PCR) (Not detect) Stl Vibrio cholerae PCR (Not detect) Stl Norovirus GI/GII PCR (Not detect) Stl GI Panel (PCR) Com Chlamy pneumoniae PCR (Not Detect) Adenovirus (PCR) (Not Detect) B. pertussis DNA (PCR) (Not Detect) Coronavirus OC43 (PCR) (Not Detect) Coronavirus HKU1 (PCR) (Not Detect) Coronavirus 229E (PCR) (Not Detect) Coronavirus NL63 (PCR) (Not Detect) Hep Bs Antigen Nonreactive (Nonreactive) Hep Bs Antibody 0.23 mIU/mL Human Metapneumovir PCR (Not Detect) Influenza A (H1) PCR (Not Detect) Influ A (H1N1/09) PCR (Not Detect) Influenza A (H3) PCR (Not Detect) Influenza A Untype (PCR) (Not Detect) Influenza Type B (PCR) (Not Detect) M.pneumoniae DNA (PCR) (Not Detect) Parainfluenza 1 (PCR) (Not Detect) Parainfluenza 2 (PCR) (Not Detect) Parainfluenza 3 (PCR) (Not Detect) Parainfluenza 4 (PCR) (Not Detect) RSV (PCR) (Not Detect) Entero/Rhino (PCR) (Not Detect) Exam - Constitutional Vitals: Temp Pulse Resp BP Pulse Ox 97.6 F 80 21 109/59 98 03/07/17 07:59 03/07/17 08:00 03/07/17 09:05 03/07/17 09:05 03/07/17 09:05 General appearance: average body habitus, no acute distress, no febrile - Head Head exam: Present: atraumatic, normal inspection, normocephalic - Eye Eye exam: Present: normal appearance, PERRL Pupils: Present: normal accommodation - ENT ENT exam: Present: mucous membranes moist - Neck Neck exam: Present: normal inspection - Respiratory Respiratory exam: Present: CTAB. Absent: rales, respiratory distress, rhonchi, wheezes - Cardiovascular Cardiovascular exam: Present: RRR, +S1, +S2 - GI/Abdominal GI/Abdominal exam: Present: normal bowel sounds, soft. Absent: distended, tenderness Additional comments: Rectal tube noted. No stool in collection bag. - Extremities Exam Extremities exam: Absent: joint swelling, normal inspection (Cyanosis noted to the distal toes on bilateral feet.), pedal edema, tenderness - Neurological Exam Neurological exam: Present: altered (Unresponsive to verbal stimuli. Withdraws from painful stimuli only.). Absent: alert - Skin Skin exam: Present: cyanosis (distal toes bilateral feet), dry, intact, pallor, warm - Additional findings Additional findings: Perma-cath noted to the left upper chest with transparent dressing C/D/I. No erythema, warmth, or drainage noted. - Stroke Is the patient on any antithrombotics?: No Are there any contradictions to antithrombotics?: Yes Contraindication Antithromb by Day Two: Not Indicated - Due to Bleeding Disorder or Risk of Bleeding (Coagulapathy with elevated INR) - VTE Reasons for not Prescribing Prophylaxis: Not indicated-Anticoagulated or INR therapeutic - AMI Reason for No Aspirin at Discharge: Drug treatment not indicated Consult Discharge Plan - Plan Referrals: Henrry Mccullough MD [Primary Care Provider] -
[2017-03-07] MEDS: Vasopressin 40 UNIT in D5% in Water 100 ML IV SCH (11:53)
--- NOTE | 2017-03-07 12:20 | Pulmonology Progress Note ---
<BobChadwick W - Last Filed: 03/07/17 13:35> Date of Encounter: 03/07/17 Objective PUL Vital signs: Last Vital Signs Temp 98.2 F 03/07/17 12:39 Pulse 80 03/07/17 12:00 Resp 23 03/07/17 12:00 BP 114/54 03/07/17 12:00 Pulse Ox 96 03/07/17 12:00 Ventilator Settings Ventilator Settings: Ventilator Settings, Last 8 Hours Ventilator Mode VC+ Ventilator Mode VC+ Ventilator Mode VC+ Ventilator Mode VC+ Ventilator Mode VC+ Ventilator Mode VC+ Ventilator Mode VC+ Ventilator Mode VC+ Ventilator Mode VC+ Ventilator Mode VC+ Ventilator Mode VC+ Ventilator Tidal Volume 350 Setting Ventilator Tidal Volume 350 Setting Ventilator Tidal Volume 350 Setting Ventilator Tidal Volume 350 Setting Ventilator Tidal Volume 350 Setting Ventilator Tidal Volume 350 Setting Ventilator Tidal Volume 350 Setting Ventilator Tidal Volume 350 Setting Ventilator Tidal Volume 350 Setting Ventilator Tidal Volume 350 Setting Ventilator Tidal Volume 350 Setting Ventilator Respiratory Rate 18 Setting Ventilator Respiratory Rate 18 Setting Ventilator Respiratory Rate 18 Setting Ventilator Respiratory Rate 18 Setting Ventilator Respiratory Rate 18 Setting Ventilator Respiratory Rate 18 Setting Ventilator Respiratory Rate 18 Setting Ventilator Respiratory Rate 18 Setting Ventilator Respiratory Rate 18 Setting Ventilator Respiratory Rate 18 Setting Ventilator Respiratory Rate 18 Setting Actual Respiratory Rate 23 Actual Respiratory Rate 23 Actual Respiratory Rate 23 Actual Respiratory Rate 24 Actual Respiratory Rate 21 Actual Respiratory Rate 23 Actual Respiratory Rate 22 Actual Respiratory Rate 22 Actual Respiratory Rate 20 Actual Respiratory Rate 27 Positive End Expiratory 8 Pressure Positive End Expiratory 8 Pressure Positive End Expiratory 8 Pressure Positive End Expiratory 8 Pressure Positive End Expiratory 8 Pressure Positive End Expiratory 8 Pressure Positive End Expiratory 8 Pressure Positive End Expiratory 8 Pressure Positive End Expiratory 8 Pressure Positive End Expiratory 8 Pressure Positive End Expiratory 8 Pressure Peak Inspiratory Airway 22 Pressure Peak Inspiratory Airway 21 Pressure Peak Inspiratory Airway 18 Pressure Peak Inspiratory Airway 21 Pressure Peak Inspiratory Airway 18 Pressure Peak Inspiratory Airway 19 Pressure Peak Inspiratory Airway 16 Pressure Peak Inspiratory Airway 21 Pressure Peak Inspiratory Airway 27 Pressure Results - Laboratory Findings CBC and BMP: 03/07/17 03:15 03/07/17 03:15 ABG ABG pH 7.42 pH Units (7.32-7.45) 03/07/17 05:45 ABG pCO2 39 mmHg (35-45) 03/07/17 05:45 ABG pO2 110 mmHg (85-104) H 03/07/17 05:45 ABG O2 Saturation 98 % (95-98) 03/07/17 05:45 PT/INR, D-dimer PT 12.6 Seconds (9.4-12.1) H 03/06/17 03:10 D-Dimer 874 ng/mLFEU (0-500) H 03/03/17 04:18 Abnormal lab findings: Abnormal lab results WBC 27.9 K/mcL (4.3-11.1) H 03/07/17 03:15 RBC 3.74 M/mcL (3.82-4.97) L 03/07/17 03:15 Hgb 8.6 g/dL (11.5-15.4) L 03/07/17 03:15 Hct 29.5 % (35.3-44.9) L 03/07/17 03:15 MCV 78.9 fL (83.0-100.0) L 03/07/17 03:15 MCH 23.0 pg (28.0-33.3) L 03/07/17 03:15 MCHC 29.2 g/dL (31.6-35.5) L 03/07/17 03:15 RDW 21.7 % (11.5-14.5) H 03/07/17 03:15 Plt Count 131 K/mcL (140-400) L 03/07/17 03:15 Immature Gran % 6.0 % (0-4) H 03/07/17 03:15 Band Neutrophils % 28.0 % (0-4) H 03/04/17 04:54 Neutrophils # 24.8 K/mcL (1.6-8.9) H 03/07/17 03:15 Lymphocytes # 0.5 K/mcL (0.6-4.6) L 03/07/17 03:15 Nucleated RBCs/100 WBC 0.4 /100 WBC (0) H 03/07/17 03:15 Toxic Granulation Present (Not Present) A 03/03/17 03:15 Platelet Estimate Slight Decrease (Normal) L 03/07/17 03:15 Immature Plt Fraction 6.9 % (1.1-6.1) H 03/07/17 03:15 Polychromasia 1+ (Not Present) A 03/02/17 08:10 Hypochromasia Present (Not Present) A 03/07/17 03:15 Poikilocytosis 1+ (Not Present) A 03/06/17 03:10 Basophilic Stippling 1+ (Not Present) A 02/25/17 07:11 Anisocytosis 2+ (Not Present) A 03/07/17 03:15 Microcytosis Present (Not Present) A 03/05/17 03:50 Macrocytosis Present (Not Present) A 03/05/17 03:50 Target Cells 1+ (Not Present) A 03/07/17 03:15 Hiren Cells 1+ (Not Present) A 03/06/17 03:10 Acanthocytes (Spur) 1+ (Not Present) A 03/05/17 03:50 PT 12.6 Seconds (9.4-12.1) H 03/06/17 03:10 APTT 74.0 Seconds (26.0-36.0) H 03/07/17 03:36 Fibrinogen 482 mg/dL (169-393) H 03/03/17 04:18 D-Dimer 874 ng/mLFEU (0-500) H 03/03/17 04:18 Heparin Anti-Xa, Unfract 0.01 IU/mL (0.30-0.70) L 03/01/17 04:10 ABG pO2 110 mmHg (85-104) H 03/07/17 05:45 ABG Total CO2 26.5 mEq/L (20-26) H 03/07/17 05:45 VBG pH 7.08 pH Units (7.32-7.42) L* 02/25/17 05:40 VBG pCO2 92 mmHg (41-51) H 02/25/17 05:40 VBG pO2 67 mmHg (25-40) H 02/25/17 05:40 VBG HCO3 27.3 mEq/L (21-27) H 02/25/17 05:40 Sodium 133 mEq/L (136-145) L D 03/07/17 03:15 Potassium 3.4 mEq/L (3.5-4.5) L 03/07/17 03:15 BUN 26 mg/dL (7-20) H D 03/07/17 03:15 Creatinine 2.16 mg/dL (0.57-1.11) H 03/07/17 03:15 Est GFR ( Amer) 27 (> 60) L 03/07/17 03:15 Est GFR (Non-Af Amer) 22 (> 60) L 03/07/17 03:15 Glucose 158 mg/dL (70-99) H 03/07/17 03:15 POC Glucose 192 (58-89) H 03/06/17 23:25 Calcium 8.5 mg/dL (8.6-10.8) L 03/07/17 03:15 Direct Bilirubin 0.8 mg/dL (0.0-0.5) H 03/07/17 03:15 Alkaline Phosphatase 613 Units/L (38-126) H 03/07/17 03:15 B-Natriuretic Peptide 2203 pg/mL (0-100) H 02/25/17 07:11 Serum Total Protein 4.7 g/dL (6.0-8.3) L 03/07/17 03:15 Albumin 1.6 g/dL (3.5-5.0) L 03/07/17 03:15 Albumin/Globulin Ratio 0.5 (1.1-2.2) L 03/07/17 03:15 Amylase 16 Units/L (25-125) L 03/04/17 15:00 Ur Specimen Adequacy See below A 02/25/17 06:28 Urine Clarity Turbid (Clear) A 02/25/17 06:28 Urine Protein >=300 mg/dL (Neg-Trace) H 02/25/17 06:28 Urine Ketones Trace mg/dL (Negative) H 02/25/17 06:28 Urine Blood Large (Negative) H 02/25/17 06:28 Ur Leukocyte Esterase Large (Negative) H 02/25/17 06:28 Ur Culture Indicated? YES (NO) A 02/25/17 06:28 Pleural Appearance Hazy (Clear) A 02/26/17 15:30 Pleural RBC 0.020 M/mcL (0.000-0.002) H 02/26/17 15:30 - Microbiology Findings Microbiology Findings: Microbiology, Last 48 Hours 03/04/17 15:47 Urine Culture - Preliminary Urine,Catheterized Gram Positive Cocci Yeast Species 03/05/17 11:40 Sputum Culture - Final Sputum Methicillin Resistant S.aureus 03/04/17 15:00 Blood Culture - Preliminary Central Venous Catheter No growth. 03/04/17 15:00 Blood Culture - Preliminary Central Venous Catheter No growth. 03/04/17 19:50 Blood Culture - Preliminary Peripheral Venipuncture No growth. - Clinical Findings Intake & Output: Intake & Output 03/06/17 03/07/17 03/07/17 23:59 07:59 15:59 Intake Total 1044 / 1044 1591 / 1591 939 / 939 Output Total 1200 / 1200 500 / 500 100 / 100 Balance -156 / -156 1091 / 1091 839 / 839 Consult Discharge Plan - Plan Referrals: Henrry Mccullough MD [Primary Care Provider] - - Attending Attestation I examined this patient and my medical decision-making was reviewed with the Resident Physician. I agree with the documented findings, disposition and treatment plan as described except to the extent set forth below. Patient seen and examined at bedside Labs, radiology, chart personally reviewed. All lines examined without evidence of infection. Management was reviewed during multidisciplinary critical care rounds. Neuropsych: Remains encephalopathic continue lactulose Pulm: Vented acceptable oxygenation and ventilation concern for ventilator associated pneumonia continue antibiotics Cards: A. fib rate controlled she has been on low dose vasopressor since dialysis yesterday which can be weaned off FEN-GI: Advance enteral nutrition, GI prophylaxis given Renal: ESRD status post dialysis yesterday electrolytes are being replaced per protocol ID: MRSA pneumonia being treated with linezolid; de-escalate antibiotics and infectious disease is following this patient as well; she has persistent leukocytosis which is secondary to pneumonia as well as possible distal ischemia Heme/Onc: Continue heparin for primary stroke prevention hemoglobin and platelets are stable Endo: Glucose monitored Integ/MSK: skin care per routine; evidence of distal ischemia evaluated by podiatry and vascular surgery no acute vascular insufficiency but it was related to vasopressor use and microthrombi; she may need amputation when more stable CODE: DNR ACC I discussed the case again with the family yesterday with plan for compassionate extubation if no improvement by beginning of next week <Lurdes Meyer - Last Filed: 03/07/17 16:52> Date of Encounter: 03/07/17 Time of Encounter: 12:19 Assessment and Plan (1) Acute and chronic respiratory failure Current Visit: Yes Status: Acute Patient intubated on the ventilator. Sedation is turned off. Patient is still just minimally responsive. She does not respond to verbal stimuli. She does withdraw from pain Patient does have cyanosis to several toes on her feet bilaterally. Patient was initially weaned off pressors 2 days ago, however this was restarted due to hypotension. We are attempting to wean again today. ABIs as well as arterial Doppler of lower extremities were normal. Plan: levofed as needed for map greater than 60. Will wean as tolerated. Vascular and podiatry consults due to cyanotic toes. Continue antibiotics per ID recommendation. Unknown source of sepsis. Does have positive MRSA sputum. Protonix for GI prophylaxis Continue to trend hemoglobin. No evidence of bleeding. Platelets were also low. We are continuing to hold the heparin. Skin care for pressure ulcer Qualifiers: Respiratory failure complication: hypercapnia Qualified Code(s): J96.22 - Acute and chronic respiratory failure with hypercapnia (2) Septic shock Current Visit: Yes Status: Acute (3) Acute encephalopathy Current Visit: Yes Status: Acute (4) Cirrhosis Current Visit: Yes Status: Chronic (5) DM (diabetes mellitus), type 2 Current Visit: Yes Status: Chronic (6) Atrial fibrillation Current Visit: Yes Status: Chronic (7) Pressure ulcer Current Visit: Yes Status: Chronic Subjective Principal diagnosis: Encephalopathy Interval history: Patient was weaned off pressors overnight. However today became hypotensive again and had to restart the pressors. We will attempt to wean this again. Patient is stooling with lactulose assistance. Patient's is off sedation. Still only minimally responsive. Withdraws from pain. Vascular and podiatry were contacted to discuss patient's cyanotic toes bilaterally. Her ELAYNE was normal as was her arterial Doppler. This is likely secondary to vasopressors. Patient's white count seems to be decreasing. We will continue the aztreonam as well as Flagyl for unknown source of sepsis. Her hemoglobin remained stable at 7.9. Patient remains encephalopathic. Objective PUL Vital signs: Last Vital Signs Temp 97.6 F 03/07/17 07:59 Pulse 80 03/07/17 11:00 Resp 23 03/07/17 11:15 BP 110/55 03/07/17 11:15 Pulse Ox 98 03/07/17 11:15 General appearance: other (Intubated withdraws from pain.) Eyes: nonicteric, other (Pupils are dilated minimally reactive) ENT: oropharynx moist Neck: supple Effort: other (Intubated and on a ventilator) Auscultation: bilateral: clear Cardiovascular: regular rate and rhythm Gastrointestinal: normoactive bowel sounds, soft, non-distended Integumentary: other (Several toes bilaterally cyanotic in color. Several areas of ecchymosis to bilateral arms.) Extremities: pulses normal, edema (Dependent and pitting to hips. Bilateral arms.) Musculoskeletal: no deformities Ventilator Settings Ventilator Settings: Ventilator Settings, Last 8 Hours Ventilator Mode VC+ Ventilator Mode VC+ Ventilator Mode VC+ Ventilator Mode VC+ Ventilator Mode VC+ Ventilator Mode VC+ Ventilator Mode VC+ Ventilator Mode VC+ Ventilator Mode VC+ Ventilator Mode VC+ Ventilator Mode VC+ Ventilator Tidal Volume 350 Setting Ventilator Tidal Volume 350 Setting Ventilator Tidal Volume 350 Setting Ventilator Tidal Volume 350 Setting Ventilator Tidal Volume 350 Setting Ventilator Tidal Volume 350 Setting Ventilator Tidal Volume 350 Setting Ventilator Tidal Volume 350 Setting Ventilator Tidal Volume 350 Setting Ventilator Tidal Volume 350 Setting Ventilator Tidal Volume 350 Setting Ventilator Respiratory Rate 18 Setting Ventilator Respiratory Rate 18 Setting Ventilator Respiratory Rate 18 Setting Ventilator Respiratory Rate 18 Setting Ventilator Respiratory Rate 18 Setting Ventilator Respiratory Rate 18 Setting Ventilator Respiratory Rate 18 Setting Ventilator Respiratory Rate 18 Setting Ventilator Respiratory Rate 18 Setting Ventilator Respiratory Rate 18 Setting Ventilator Respiratory Rate 18 Setting Actual Respiratory Rate 23 Actual Respiratory Rate 23 Actual Respiratory Rate 24 Actual Respiratory Rate 21 Actual Respiratory Rate 23 Actual Respiratory Rate 22 Actual Respiratory Rate 22 Actual Respiratory Rate 20 Actual Respiratory Rate 27 Actual Respiratory Rate 24 Positive End Expiratory 8 Pressure Positive End Expiratory 8 Pressure Positive End Expiratory 8 Pressure Positive End Expiratory 8 Pressure Positive End Expiratory 8 Pressure Positive End Expiratory 8 Pressure Positive End Expiratory 8 Pressure Positive End Expiratory 8 Pressure Positive End Expiratory 8 Pressure Positive End Expiratory 8 Pressure Positive End Expiratory 8 Pressure Peak Inspiratory Airway 21 Pressure Peak Inspiratory Airway 18 Pressure Peak Inspiratory Airway 21 Pressure Peak Inspiratory Airway 18 Pressure Peak Inspiratory Airway 19 Pressure Peak Inspiratory Airway 16 Pressure Peak Inspiratory Airway 21 Pressure Peak Inspiratory Airway 27 Pressure Peak Inspiratory Airway 29 Pressure Results - Laboratory Findings CBC and BMP: 03/07/17 03:15 03/07/17 03:15 ABG ABG pH 7.42 pH Units (7.32-7.45) 03/07/17 05:45 ABG pCO2 39 mmHg (35-45) 03/07/17 05:45 ABG pO2 110 mmHg (85-104) H 03/07/17 05:45 ABG O2 Saturation 98 % (95-98) 03/07/17 05:45 PT/INR, D-dimer PT 12.6 Seconds (9.4-12.1) H 03/06/17 03:10 D-Dimer 874 ng/mLFEU (0-500) H 03/03/17 04:18 Abnormal lab findings: Abnormal lab results WBC 27.9 K/mcL (4.3-11.1) H 03/07/17 03:15 RBC 3.74 M/mcL (3.82-4.97) L 03/07/17 03:15 Hgb 8.6 g/dL (11.5-15.4) L 03/07/17 03:15 Hct 29.5 % (35.3-44.9) L 03/07/17 03:15 MCV 78.9 fL (83.0-100.0) L 03/07/17 03:15 MCH 23.0 pg (28.0-33.3) L 03/07/17 03:15 MCHC 29.2 g/dL (31.6-35.5) L 03/07/17 03:15 RDW 21.7 % (11.5-14.5) H 03/07/17 03:15 Plt Count 131 K/mcL (140-400) L 03/07/17 03:15 Immature Gran % 6.0 % (0-4) H 03/07/17 03:15 Band Neutrophils % 28.0 % (0-4) H 03/04/17 04:54 Neutrophils # 24.8 K/mcL (1.6-8.9) H 03/07/17 03:15 Lymphocytes # 0.5 K/mcL (0.6-4.6) L 03/07/17 03:15 Nucleated RBCs/100 WBC 0.4 /100 WBC (0) H 03/07/17 03:15 Toxic Granulation Present (Not Present) A 03/03/17 03:15 Platelet Estimate Slight Decrease (Normal) L 03/07/17 03:15 Immature Plt Fraction 6.9 % (1.1-6.1) H 03/07/17 03:15 Polychromasia 1+ (Not Present) A 03/02/17 08:10 Hypochromasia Present (Not Present) A 03/07/17 03:15 Poikilocytosis 1+ (Not Present) A 03/06/17 03:10 Basophilic Stippling 1+ (Not Present) A 02/25/17 07:11 Anisocytosis 2+ (Not Present) A 03/07/17 03:15 Microcytosis Present (Not Present) A 03/05/17 03:50 Macrocytosis Present (Not Present) A 03/05/17 03:50 Target Cells 1+ (Not Present) A 03/07/17 03:15 [place] Cells 1+ (Not Present) A 03/06/17 03:10 Acanthocytes (Spur) 1+ (Not Present) A 03/05/17 03:50 PT 12.6 Seconds (9.4-12.1) H 03/06/17 03:10 APTT 74.0 Seconds (26.0-36.0) H 03/07/17 03:36 Fibrinogen 482 mg/dL (169-393) H 03/03/17 04:18 D-Dimer 874 ng/mLFEU (0-500) H 03/03/17 04:18 Heparin Anti-Xa, Unfract 0.01 IU/mL (0.30-0.70) L 03/01/17 04:10 ABG pO2 110 mmHg (85-104) H 03/07/17 05:45 ABG Total CO2 26.5 mEq/L (20-26) H 03/07/17 05:45 VBG pH 7.08 pH Units (7.32-7.42) L* 02/25/17 05:40 VBG pCO2 92 mmHg (41-51) H 02/25/17 05:40 VBG pO2 67 mmHg (25-40) H 02/25/17 05:40 VBG HCO3 27.3 mEq/L (21-27) H 02/25/17 05:40 Sodium 133 mEq/L (136-145) L D 03/07/17 03:15 Potassium 3.4 mEq/L (3.5-4.5) L 03/07/17 03:15 BUN 26 mg/dL (7-20) H D 03/07/17 03:15 Creatinine 2.16 mg/dL (0.57-1.11) H 03/07/17 03:15 Est GFR ( Amer) 27 (> 60) L 03/07/17 03:15 Est GFR (Non-Af Amer) 22 (> 60) L 03/07/17 03:15 Glucose 158 mg/dL (70-99) H 03/07/17 03:15 POC Glucose 192 (58-89) H 03/06/17 23:25 Calcium 8.5 mg/dL (8.6-10.8) L 03/07/17 03:15 Direct Bilirubin 0.8 mg/dL (0.0-0.5) H 03/07/17 03:15 Alkaline Phosphatase 613 Units/L (38-126) H 03/07/17 03:15 B-Natriuretic Peptide 2203 pg/mL (0-100) H 02/25/17 07:11 Serum Total Protein 4.7 g/dL (6.0-8.3) L 03/07/17 03:15 Albumin 1.6 g/dL (3.5-5.0) L 03/07/17 03:15 Albumin/Globulin Ratio 0.5 (1.1-2.2) L 03/07/17 03:15 Amylase 16 Units/L (25-125) L 03/04/17 15:00 Ur Specimen Adequacy See below A 02/25/17 06:28 Urine Clarity Turbid (Clear) A 02/25/17 06:28 Urine Protein >=300 mg/dL (Neg-Trace) H 02/25/17 06:28 Urine Ketones Trace mg/dL (Negative) H 02/25/17 06:28 Urine Blood Large (Negative) H 02/25/17 06:28 Ur Leukocyte Esterase Large (Negative) H 02/25/17 06:28 Ur Culture Indicated? YES (NO) A 02/25/17 06:28 Pleural Appearance Hazy (Clear) A 02/26/17 15:30 Pleural RBC 0.020 M/mcL (0.000-0.002) H 02/26/17 15:30 - Microbiology Findings Microbiology Findings: Microbiology, Last 48 Hours 03/04/17 15:47 Urine Culture - Preliminary Urine,Catheterized Gram Positive Cocci Yeast Species 03/05/17 11:40 Sputum Culture - Final Sputum Methicillin Resistant S.aureus 03/04/17 15:00 Blood Culture - Preliminary Central Venous Catheter No growth. 03/04/17 15:00 Blood Culture - Preliminary Central Venous Catheter No growth. 03/04/17 19:50 Blood Culture - Preliminary Peripheral Venipuncture No growth. - Diagnostic Findings Additional studies: KUB X-Ray 02/25/17 11:23 IMPRESSION: OG tube in place with its tip in the region of the body of the stomach and side-port in the region of the GE junction D/ / Chester Benitez MD / Chester Benitez MD Interpreting Provider: Chester Benitez MD Chest X-Ray 03/01/17 11:08 IMPRESSION: Persistent CHF. Increased left pleural effusion and basilar volume loss. Satisfactory position of endotracheal tube. D/ / Cameron John MD / Cameron John MD Interpreting Provider: Cameron John MD Abdomen/Pelvis CT 03/04/17 18:00 IMPRESSION: Study is moderately motion compromised. Support apparatus appears to be in adequate position. Moderate bilateral pleural effusions left greater than right and associated dependent consolidation likely related to atelectasis and underlying pulmonary edema noted. Superimposed pneumonia cannot be excluded. Overall no great change from the comparison noted with slight and improvement in decrease in size of left-sided pleural effusion. New subacute rib fractures are noted on the left. Evaluation of the abdomen and pelvis is also motion compromised. Findings compatible with cirrhosis noted. Very mild prominence of the wall thickness of the colon felt to be artifactual in nature. Mild degree of underlying colitis cannot be completely excluded but is felt to be less likely. There is 3rd spacing noted which may be related to underlying cardiac, renal or hepatic dysfunction. Incidental note of acute fracture of the right hip. D/ /04/2017 19:35:59 Noé Ball MD / allen Interpreting Provider: Noé Ball MD Chest CT 03/04/17 18:00 IMPRESSION: Study is moderately motion compromised. Support apparatus appears to be in adequate position. Moderate bilateral pleural effusions left greater than right and associated dependent consolidation likely related to atelectasis and underlying pulmonary edema noted. Superimposed pneumonia cannot be excluded. Overall no great change from the comparison noted with slight and improvement in decrease in size of left-sided pleural effusion. New subacute rib fractures are noted on the left. Evaluation of the abdomen and pelvis is also motion compromised. Findings compatible with cirrhosis noted. Very mild prominence of the wall thickness of the colon felt to be artifactual in nature. Mild degree of underlying colitis cannot be completely excluded but is felt to be less likely. There is 3rd spacing noted which may be related to underlying cardiac, renal or hepatic dysfunction. Incidental note of acute fracture of the right hip. D/ : / 03/04/2017 19:35:59 Noé Ball MD / allen Interpreting Provider: Noé Ball MD Head CT 03/04/17 18:00 IMPRESSION: Motion artifact limits evaluation. No definite acute intracranial abnormality. Fluid in the mastoid air cells bilaterally, left greater than right, which is new from 02/25/2017. This finding is nonspecific but can be seen with mastoiditis. Patchy hypodensities in the periventricular and subcortical white matter, which are nonspecific, but may represent chronic small vessel ischemic change. D/ : / 03/04/2017 19:39:56 David Hammond MD / allen Interpreting Provider: David Hammond MD Pelvis CT 03/04/17 18:00 IMPRESSION: Right greater trochanteric fracture, without significant displacement. Again, the age of this is indeterminate, as there appears to be some periosteal reaction, suggesting a subacute timeframe. On the indication, there is concern for infection. Although infection is not excluded by CT (or for that matter MRI) there is only a very small amount of articular fluid, with no significant joint effusion, making that less likely. D/ / Jacques Long MD / Jacques Long MD Interpreting Provider: Jacques Long MD - Clinical Findings Intake & Output: Intake & Output 03/06/17 03/07/17 03/07/17 23:59 07:59 15:59 Intake Total 1044 / 1044 1591 / 1591 939 / 939 Output Total 1200 / 1200 500 / 500 Balance -156 / -156 1091 / 1091 939 / 939 - Stroke Is the patient on any antithrombotics?: No Contraindication Antithromb by Day Two: Not Indicated - Due to Bleeding Disorder or Risk of Bleeding (Coagulapathy with elevated INR) - VTE Reasons for not Prescribing Prophylaxis: Not indicated-Anticoagulated or INR therapeutic - AMI Reason for No Aspirin at Discharge: Drug treatment not indicated
--- NOTE | 2017-03-07 15:18 | Infectious Disease Progress No ---
Date of Encounter: 03/07/17 Time of Encounter: 15:15 - Assessment and Plan (1) Septic shock Current Visit: Yes Status: Acute Patient no longer meets SIRS criteria. Fever has resolved. Leukocytosis is trending up slightly. 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 Peripheral blood cultures from 02/26/17 show no growth to date. Blood cultures from tunneled dialysis catheter have grown 1/2 GPC. Repeat blood cultures from 03/04/17 show NGTD. Repeat urine culture from 03/04/17 is positive for yeast species and GPC. Sputum culture from have grown MRSA. CT of the abdomen pelvis and chest performed on 03/04/17 did not reveal a definite source of infection. There is some dependant consolidation/ atelectasis on the right " pneumonia could not be ruled out" Now with MRSA in the sputum. Tracheobronchitis vs. VAP vs. contamination? Source of infection is still unclear at this time. Possible VAP/ tracheobronchitis pneumonia, versus infection from sacral wound, and UTI. Sacral wound dose not overtly appear infected but is covered with an eschar. Patient has been afebrile. Remains of pressor support. Noted that patient has thrombocytopenia. Unlikely Linezolid with less than 10 days therapy but difficult to say for sure with her renal function. Recommendations: Discontinue Linezolid. Start Vancomycin with pharmacy to dose given her ESRD. Contineu Aztreonam. Disocntinue flagyl. Recommend wound care for sacral decubitus ulcer. Continue to monitor for drug toxicities. (2) Respiratory failure Current Visit: Yes Status: Acute Acute on chronic hypercapneic and hpoxemic. Continues on Ventilatory support. Pulmonology is managing. Qualifiers: Chronicity: unspecified Respiratory failure complication: hypoxia and hypercapnia Qualified Code(s): J96.91 - Respiratory failure, unspecified with hypoxia; J96.92 - Respiratory failure, unspecified with hypercapnia (3) Bacteremia Current Visit: Yes Status: Acute Contamination vs. true infection of tunneled dialysis catheter. 1/2 GPR likley represents contamination. Repeat blood cultures from 03/04/17 show No growth to date. We will follow up with those results. (4) Encephalopathy Current Visit: Yes Status: Acute in the setting of cirrhosis and ESRD with Septic shock. Patient is receiving lactulose through the NG. No improvement on todays exam. continue to monitor (5) Decubitus ulcer of sacral region, unstageable Current Visit: Yes Status: Acute Patient has large unstagable sacral decubitus ulcer with large eschar. Dose not seem to be overtly infected on exam. Would recommend wound care if not already following. (6) Lower limb ischemia Current Visit: Yes Status: Acute Possibly from pressor agents. Normal preliminary ABIs. Reviewed Vascular surgery consult note. Appears to be vassospastic. Developed after admission. Doubt an infectious process at this time. Continue to monitor with daily exams. (7) Cirrhosis Current Visit: Yes Status: Acute management per primary team. Qualifiers: Hepatic cirrhosis type: unspecified hepatic cirrhosis Ascites presence: without ascites Qualified Code(s): K74.60 - Unspecified cirrhosis of liver (8) UTI (urinary tract infection) Current Visit: Yes Status: Acute repeat urine culture has grown Yeast and GPC. recommend vancomycin. Qualifiers: Urinary tract infection type: site unspecified Hematuria presence: without hematuria Qualified Code(s): N39.0 - Urinary tract infection, site not specified (9) ESRD (end stage renal disease) on dialysis Current Visit: Yes Status: Acute management per nephrology. patient currently has access with a left tunneled dialysis catheter. Has fistula in left wrist but dose not appear to be functional. (10) Vancomycin resistant Enterococcus infection Current Visit: Yes Status: Resolved repeat cultures have grown GPC and yeast. (11) Closed fracture of greater trochanter of femur Current Visit: Yes Status: Acute Closed nondiscplaced fracture of the right femural greater trochanter. No evidence on infection on imaging. I think this is unlikely to be the source of infection. Qualifiers: Encounter type: subsequent encounter Fracture alignment: nondisplaced Laterality: right Fracture healing: with malunion Qualified Code(s): S72.114P - Nondisplaced fracture of greater trochanter of right femur, subsequent encounter for closed fracture with malunion - Subjective Interval history: No major events overnight. Patient did have some desaturations overnight and this morning but corrected with suctioning. Patient still remains unresponsive and off of sedation. She did become hypotensive after dialysis yesterday and is now back on vassopressor agents. Infect Dis PN-Objective Data - Labs CBC & Chem 7: 03/08/17 04:18 03/08/17 04:18 Labs: Laboratory Results - last 24 hr 03/06/17 03/06/17 03/06/17 07:08 13:20 15:12 WBC RBC Hgb Hct MCV MCH MCHC RDW Plt Count MPV Immature Gran % Seg Neutrophils % Lymphocytes % Monocytes % Eosinophils % Basophils % Neutrophils # Lymphocytes # Monocytes # Eosinophils # Basophils # Nucleated RBCs/100 WBC Platelet Estimate Immature Plt Fraction Hypochromasia Anisocytosis Target Cells APTT ABG pH ABG pCO2 ABG pO2 ABG HCO3 ABG Total CO2 ABG O2 Saturation ABG Base Excess Blood Gas Modality Inspired O2 Sodium Potassium Chloride Carbon Dioxide BUN Creatinine Est GFR ( Amer) Est GFR (Non-Af Amer) BUN/Creatinine Ratio Glucose POC Glucose 157 H 105 H 107 H Calculated Osmolality Calcium Ionized Calcium Phosphorus Magnesium Total Bilirubin Direct Bilirubin Indirect Bilirubin AST ALT Alkaline Phosphatase Serum Total Protein Albumin Globulin Albumin/Globulin Ratio 03/06/17 03/06/17 03/07/17 19:40 23:25 03:15 WBC 27.9 H RBC 3.74 L Hgb 8.6 L Hct 29.5 L MCV 78.9 L MCH 23.0 L MCHC 29.2 L RDW 21.7 H Plt Count 131 L MPV 10.0 Immature Gran % 6.0 H Seg Neutrophils % 88.8 Lymphocytes % 1.9 Monocytes % 3.1 Eosinophils % 0.0 Basophils % 0.2 Neutrophils # 24.8 H Lymphocytes # 0.5 L Monocytes # 0.9 Eosinophils # 0.0 Basophils # 0.1 Nucleated RBCs/100 WBC 0.4 H Platelet Estimate Slight Decrease L Immature Plt Fraction 6.9 H Hypochromasia Present A Anisocytosis 2+ A Target Cells 1+ A APTT ABG pH ABG pCO2 ABG pO2 ABG HCO3 ABG Total CO2 ABG O2 Saturation ABG Base Excess Blood Gas Modality Inspired O2 Sodium Potassium Chloride Carbon Dioxide BUN Creatinine Est GFR ( Amer) Est GFR (Non-Af Amer) BUN/Creatinine Ratio Glucose POC Glucose 195 H 192 H Calculated Osmolality Calcium Ionized Calcium Phosphorus Magnesium Total Bilirubin Direct Bilirubin Indirect Bilirubin AST ALT Alkaline Phosphatase Serum Total Protein Albumin Globulin Albumin/Globulin Ratio 03/07/17 03/07/17 03/07/17 03:15 03:15 03:15 WBC RBC Hgb Hct MCV MCH MCHC RDW Plt Count MPV Immature Gran % Seg Neutrophils % Lymphocytes % Monocytes % Eosinophils % Basophils % Neutrophils # Lymphocytes # Monocytes # Eosinophils # Basophils # Nucleated RBCs/100 WBC Platelet Estimate Immature Plt Fraction Hypochromasia Anisocytosis Target Cells APTT ABG pH ABG pCO2 ABG pO2 ABG HCO3 ABG Total CO2 ABG O2 Saturation ABG Base Excess Blood Gas Modality Inspired O2 Sodium 133 L D Potassium 3.4 L Chloride 100 Carbon Dioxide 25 BUN 26 H D Creatinine 2.16 H Est GFR ( Amer) 27 L Est GFR (Non-Af Amer) 22 L BUN/Creatinine Ratio 12 Glucose 158 H POC Glucose Calculated Osmolality 284 Calcium 8.5 L Ionized Calcium 1.16 Phosphorus 2.6 Magnesium 1.9 Total Bilirubin 1.0 Direct Bilirubin 0.8 H Indirect Bilirubin 0.2 AST 15 ALT 13 Alkaline Phosphatase 613 H Serum Total Protein 4.7 L Albumin 1.6 L Globulin 3.1 Albumin/Globulin Ratio 0.5 L 03/07/17 03/07/17 03:36 05:45 WBC RBC Hgb Hct MCV MCH MCHC RDW Plt Count MPV Immature Gran % Seg Neutrophils % Lymphocytes % Monocytes % Eosinophils % Basophils % Neutrophils # Lymphocytes # Monocytes # Eosinophils # Basophils # Nucleated RBCs/100 WBC Platelet Estimate Immature Plt Fraction Hypochromasia Anisocytosis Target Cells APTT 74.0 H ABG pH 7.42 ABG pCO2 39 ABG pO2 110 H ABG HCO3 25.3 ABG Total CO2 26.5 H ABG O2 Saturation 98 ABG Base Excess 0.8 Blood Gas Modality VCT Inspired O2 30 Sodium Potassium Chloride Carbon Dioxide BUN Creatinine Est GFR ( Amer) Est GFR (Non-Af Amer) BUN/Creatinine Ratio Glucose POC Glucose Calculated Osmolality Calcium Ionized Calcium Phosphorus Magnesium Total Bilirubin Direct Bilirubin Indirect Bilirubin AST ALT Alkaline Phosphatase Serum Total Protein Albumin Globulin Albumin/Globulin Ratio Cultures: Cultures 03/04/17 15:47 Urine Culture - Preliminary Urine,Catheterized Gram Positive Cocci Yeast Species 03/05/17 11:40 Sputum Culture - Final Sputum Methicillin Resistant S.aureus 03/04/17 15:00 Blood Culture - Preliminary Central Venous Catheter No growth. 03/04/17 15:00 Blood Culture - Preliminary Central Venous Catheter No growth. 03/04/17 19:50 Blood Culture - Preliminary Peripheral Venipuncture No growth. 02/26/17 12:41 Blood Culture - Preliminary Port System Gram Positive Rods 02/26/17 12:41 Blood Culture - Final Port System No growth. 02/26/17 10:27 Blood Culture - Final Peripheral Venipuncture No growth. 02/26/17 10:20 Blood Culture - Final Peripheral Venipuncture No growth. 02/26/17 15:30 Body Fluid Culture - Final Pleural Fluid 02/25/17 14:20 Sputum Culture - Final Sputum Nitesha ascorbata Serology 03/05/17 02/27/17 02/26/17 Range/Units 04:10 16:20 15:30 Pleural Fluid Volume 15.0 mL Pleural Appearance Hazy A (Clear) Pleural pH 7.51 (No Ref Range) pH Units Pleural RBC 0.020 H (0.000 - 0.002) M/mcL Pleural Tot Nuc Cell 181 (0-1000) TNC/mcL Pleural Neutrophils 47.0 % Pleural Band Neuts 3.0 % Pleural Eosinophils Test Not Performed Pleural Basophils Test Not Performed Pleural Lymphocytes % 35.0 % Pleural Monocytes % 5.0 % Pleural Other Cells % 10.0 % Pleural Total Protein 2.6 (No Ref Range) g/dL Pleural Albumin 1.5 (No Ref Range) g/dL Pleural LDH 115 (No Ref Range) Units/L Pleural Glucose 171 (No Ref Range) mg/dL Pleural Amylase 21 (No Ref Range) Units/L Pleural Cholesterol 46 (No Ref Range) mg/dL Pleural Triglycerides 25 (No Ref Range) mg/dL Stl C. cayetanensis PCR Not detected (Not detect) Stool Rotavirus A PCR Not detected (Not detect) Stl Adenov F 40/41 PCR Not detected (Not detect) Stool Astrovirus (PCR) Not detected (Not detect) Stool Campylobacter PCR Not detected (Not detect) Stl C. diff Tox A/B PCR Not detected (Not detect) Stool Cryptosporidium PCR Not detected (Not detect) Stl Sh Tox Pr E STEC PCR Not detected (Not detect) Stool E coli O157 PCR Not detected (Not detect) Stl Enterotoxigenic E PCR Not detected (Not detect) Stool EPEC (PCR) Not detected (Not detect) Stool EAEC (PCR) Not detected (Not detect) Stl E. histolytica PCR Not detected (Not detect) Stool Giardia Lamblia PCR Not detected (Not detect) Stool Salmonella PCR Not detected (Not detect) Stool Sapovirus (PCR) Not detected (Not detect) Stl P. shigelloides PCR Not detected (Not detect) Stl Shigella/EIEC PCR Not detected (Not detect) St Y.enterocolitica PCR Not detected (Not detect) Stool Vibrio (PCR) Not detected (Not detect) Stl Vibrio cholerae PCR Not detected (Not detect) Stl Norovirus GI/GII PCR Not detected (Not detect) Stl GI Panel (PCR) Com See below Chlamy pneumoniae PCR Not Detected (Not Detect) Adenovirus (PCR) Not Detected (Not Detect) B. pertussis DNA (PCR) Not Detected (Not Detect) Coronavirus OC43 (PCR) Not Detected (Not Detect) Coronavirus HKU1 (PCR) Not Detected (Not Detect) Coronavirus 229E (PCR) Not Detected (Not Detect) Coronavirus NL63 (PCR) Not Detected (Not Detect) Hep Bs Antigen (Nonreactive) Hep Bs Antibody mIU/mL Human Metapneumovir PCR Not Detected (Not Detect) Influenza A (H1) PCR Not Detected (Not Detect) Influ A (H1N1/09) PCR Not Detected (Not Detect) Influenza A (H3) PCR Not Detected (Not Detect) Influenza A Untype (PCR) Not Detected (Not Detect) Influenza Type B (PCR) Not Detected (Not Detect) M.pneumoniae DNA (PCR) Not Detected (Not Detect) Parainfluenza 1 (PCR) Not Detected (Not Detect) Parainfluenza 2 (PCR) Not Detected (Not Detect) Parainfluenza 3 (PCR) Not Detected (Not Detect) Parainfluenza 4 (PCR) Not Detected (Not Detect) RSV (PCR) Not Detected (Not Detect) Entero/Rhino (PCR) Not Detected (Not Detect) 02/25/17 Range/Units 11:00 Pleural Fluid Volume mL Pleural Appearance (Clear) Pleural pH (No Ref Range) pH Units Pleural RBC (0.000 - 0.002) M/mcL Pleural Tot Nuc Cell (0-1000) TNC/mcL Pleural Neutrophils % Pleural Band Neuts % Pleural Eosinophils Pleural Basophils Pleural Lymphocytes % % Pleural Monocytes % % Pleural Other Cells % % Pleural Total Protein (No Ref Range) g/dL Pleural Albumin (No Ref Range) g/dL Pleural LDH (No Ref Range) Units/L Pleural Glucose (No Ref Range) mg/dL Pleural Amylase (No Ref Range) Units/L Pleural Cholesterol (No Ref Range) mg/dL Pleural Triglycerides (No Ref Range) mg/dL Stl C. cayetanensis PCR (Not detect) Stool Rotavirus A PCR (Not detect) Stl Adenov F 40/41 PCR (Not detect) Stool Astrovirus (PCR) (Not detect) Stool Campylobacter PCR (Not detect) Stl C. diff Tox A/B PCR (Not detect) Stool Cryptosporidium PCR (Not detect) Stl Sh Tox Pr E STEC PCR (Not detect) Stool E coli O157 PCR (Not detect) Stl Enterotoxigenic E PCR (Not detect) Stool EPEC (PCR) (Not detect) Stool EAEC (PCR) (Not detect) Stl E. histolytica PCR (Not detect) Stool Giardia Lamblia PCR (Not detect) Stool Salmonella PCR (Not detect) Stool Sapovirus (PCR) (Not detect) Stl P. shigelloides PCR (Not detect) Stl Shigella/EIEC PCR (Not detect) St Y.enterocolitica PCR (Not detect) Stool Vibrio (PCR) (Not detect) Stl Vibrio cholerae PCR (Not detect) Stl Norovirus GI/GII PCR (Not detect) Stl GI Panel (PCR) Com Chlamy pneumoniae PCR (Not Detect) Adenovirus (PCR) (Not Detect) B. pertussis DNA (PCR) (Not Detect) Coronavirus OC43 (PCR) (Not Detect) Coronavirus HKU1 (PCR) (Not Detect) Coronavirus 229E (PCR) (Not Detect) Coronavirus NL63 (PCR) (Not Detect) Hep Bs Antigen Nonreactive (Nonreactive) Hep Bs Antibody 0.23 mIU/mL Human Metapneumovir PCR (Not Detect) Influenza A (H1) PCR (Not Detect) Influ A (H1N1/09) PCR (Not Detect) Influenza A (H3) PCR (Not Detect) Influenza A Untype (PCR) (Not Detect) Influenza Type B (PCR) (Not Detect) M.pneumoniae DNA (PCR) (Not Detect) Parainfluenza 1 (PCR) (Not Detect) Parainfluenza 2 (PCR) (Not Detect) Parainfluenza 3 (PCR) (Not Detect) Parainfluenza 4 (PCR) (Not Detect) RSV (PCR) (Not Detect) Entero/Rhino (PCR) (Not Detect) - Impressions Impressions Abdomen/Pelvis CT 03/04/17 18:00 IMPRESSION: Study is moderately motion compromised. Support apparatus appears to be in adequate position. Moderate bilateral pleural effusions left greater than right and associated dependent consolidation likely related to atelectasis and underlying pulmonary edema noted. Superimposed pneumonia cannot be excluded. Overall no great change from the comparison noted with slight and improvement in decrease in size of left-sided pleural effusion. New subacute rib fractures are noted on the left. Evaluation of the abdomen and pelvis is also motion compromised. Findings compatible with cirrhosis noted. Very mild prominence of the wall thickness of the colon felt to be artifactual in nature. Mild degree of underlying colitis cannot be completely excluded but is felt to be less likely. There is 3rd spacing noted which may be related to underlying cardiac, renal or hepatic dysfunction. Incidental note of acute fracture of the right hip. D/ /04/2017 19:35:59 Noé Ball MD / allen Interpreting Provider: Noé Ball MD Pelvis CT 03/04/17 18:00 IMPRESSION: Right greater trochanteric fracture, without significant displacement. Again, the age of this is indeterminate, as there appears to be some periosteal reaction, suggesting a subacute timeframe. On the indication, there is concern for infection. Although infection is not excluded by CT (or for that matter MRI) there is only a very small amount of articular fluid, with no significant joint effusion, making that less likely. D/ / Jacques Long MD / Jacques Long MD Interpreting Provider: Jacques Long MD Exam - Constitutional Vitals: Temp Pulse Resp BP Pulse Ox 98.2 F 80 24 103/55 95 03/07/17 12:39 03/07/17 12:00 03/07/17 13:25 03/07/17 13:25 03/07/17 13:25 Exam: intubated. Responds to pain only. No posturing present. - Head Head exam: Present: atraumatic, normal inspection, normocephalic - Eye Eye exam: Present: PERRL, conjuntiva pink - ENT ENT exam: Present: mucous membranes moist Additional comments: ET and OG present. - Neck Neck exam: Absent: lymphadenopathy, thyromegaly Additional comments: obese trachea midline. - Respiratory Additional comments: rhonchi in left upper lung field. - Cardiovascular Cardiovascular exam: Present: RRR, +S1, +S2. Absent: diastolic murmur, systolic murmur - GI/Abdominal GI/Abdominal exam: Present: normal bowel sounds, soft. Absent: tenderness Additional comments: mild ecchymosis in the supra umbilical region. - Extremities Exam Extremities exam: Present: pedal edema (!= to the level of the carrera. cyanotic 2nd,3rd,4th toes bilaterally) - Skin Skin exam: Present: warm. Absent: erythema, petechiae, rash - Stroke Is the patient on any antithrombotics?: Yes Contraindication Antithromb by Day Two: Not Indicated - Due to Bleeding Disorder or Risk of Bleeding (Coagulapathy with elevated INR) - VTE Reasons for not Prescribing Prophylaxis: Not indicated-Anticoagulated or INR therapeutic - AMI Reason for No Aspirin at Discharge: Drug treatment not indicated Consult Discharge Plan - Plan Referrals: Henrry Mccullough MD [Primary Care Provider] - - Attending Attestation I examined this patient and my medical decision-making was reviewed with the Resident Physician. I agree with the documented findings, disposition and treatment plan as described except to the extent set forth below.
[2017-03-07] MEDS ORDERED: Vancomycin 1,250 MG in D5% in Water 250 ML IVPB ONE (17:00)
[2017-03-07] MEDS ORDERED: Vancomycin 1,250 MG in D5% in Water 250 ML IVPB SCH (17:00)
[2017-03-07] MEDS: Dexmedetomidine HCl 400 MCG/100 ML MLS IVC SCH (17:10)
[2017-03-07 20:54] LABS: Magnesium 1.8 mg/dL (1.6-2.6); Potassium 3.5 mEq/L (3.5-4.5)
[2017-03-07 20:56] LABS: Phosphorous 4.4 mg/dL (2.3-4.7)
[2017-03-07] MEDS: Magnesium Sulfate 2 GM in D5% in Water 100 ML IVPB PRN (21:41)
[2017-03-08] MEDS: Lacri-Lube 3.5 GM TUBE BOTH EYES SCH ×6 (00:33→19:54)
[2017-03-08] MEDS: Insulin LISPRO 300 UNITS/3 ML VIAL SQ SCH ×6 (00:33→19:54)
[2017-03-08] MEDS: Aztreonam 500 MG in D5% in Water 100 ML IVPB SCH ×3 (02:15→18:43)
[2017-03-08 03:59] LABS: ABG Base Excess -1.7 mEq/L (-2.0 to 3.0); ABG Oxygen Saturation 91 % (95-98); ABG PCO2 38 mmHg (35-45); ABG PH 7.39 pH Units (7.32-7.45); ABG PO2 61 mmHg (85-104); ABG TCO2 24.2 mEq/L (20-26)
[2017-03-08 04:00] LABS: Blood Gas FiO2 30 %; Blood Gas PEEP 8 cm H2O; Blood Gas Respiration Rate 18; Blood Gas VT 350 cc
[2017-03-08 04:38] LABS: Hemoglobin 8.2 g/dL (11.5-15.4); Nucleated Red Blood Cells 0.6 /100 WBC (0); Red Cell Distribution Width 21.5 % (11.5-14.5)
[2017-03-08 04:40] LABS: Mean Corpuscular HGB Conc 29.3 g/dL (31.6-35.5); Mean Corpuscular Hemoglobin 22.3 pg (28.0-33.3); Mean Corpuscular Volume 76.1 fL (83.0-100.0); Mean Platelet Volume 10.5 fL (9.4-12.4); Platelet Count 116 K/mcL (140-400); Red Blood Count 3.68 M/mcL (3.82-4.97)
[2017-03-08 04:51] LABS: Albumin/Globulin Ratio 0.5 (1.1-2.2); Calcium 8.4 mg/dL (8.6-10.8); Globulin 3.1 g/dL (2.4-3.5); Potassium 3.9 mEq/L (3.5-4.5); Total Protein 4.7 g/dL (6.0-8.3)
[2017-03-08 04:56] LABS: Albumin 1.6 g/dL (3.5-5.0)
[2017-03-08 05:44] LABS: Anisocytosis 2+ (Not Present); Lymphocytes # 0.6 K/mcL (0.6-4.6); Microcytosis Present (Not Present); Monocytes # 1.2 K/mcL (0.0-1.3); Neutrophils # 27.7 K/mcL (1.6-8.9); Platelet Estimate Slight Decrease (Normal)
[2017-03-08] MEDS: EPINEPHrine 1 MG in D5% in Water 250 ML IVC SCH (08:12)
[2017-03-08] MEDS: Aspirin 81 MG TAB.CHEW PO SCH (08:57)
[2017-03-08] MEDS: Chlorhexidine Rinse 15 ML MOUTHWASH MM SCH ×2 (08:57→19:53)
[2017-03-08] MEDS: Folic Acid 1 MG TABLET PO SCH (08:57)
[2017-03-08] MEDS: Lactulose Oral Soln 20 GM/30 ML UDC PO SCH ×3 (08:58→19:53)
[2017-03-08] MEDS: Pantoprazole 40 MG VIAL IVPB SCH (08:58)
--- NOTE | 2017-03-08 09:13 | Nephrology Progress Note ---
Date of Encounter: 03/08/17 Time of Encounter: 08:45 - Assessment and Plan (1) End-stage renal disease Current Visit: No Status: Acute Acute on chronic respiratory failure, encephalopathy, cirrhosis. HD today, orders given. Subjective Principal diagnosis: Encephalopathy Interval history: Intubated, on one pressor. FIO2 30, peep 8. Objective - Vital Signs Vital signs: Vital Signs Temp Pulse Resp BP Pulse Ox 03/08/17 08:09 98 F 03/08/17 08:00 78 21 97/50 99 03/08/17 07:30 77 03/08/17 07:00 78 23 92/48 96 03/08/17 06:15 24 95/48 98 03/08/17 06:00 74 25 98/48 97 03/08/17 05:00 79 25 101/50 98 03/08/17 04:50 98 F 03/08/17 04:35 25 101/50 98 03/08/17 04:00 84 25 98/49 97 03/08/17 03:00 84 27 103/49 94 03/08/17 02:25 26 104/49 96 03/08/17 02:00 78 25 104/49 94 03/08/17 01:00 79 25 95/44 94 03/08/17 00:36 97.6 F 03/08/17 00:00 76 26 94/42 96 03/07/17 23:00 79 25 94/52 95 03/07/17 22:29 24 101/47 95 03/07/17 22:00 75 26 101/47 95 03/07/17 21:00 80 23 111/51 95 03/07/17 20:54 24 107/59 93 03/07/17 20:30 97.8 F 03/07/17 20:00 80 23 102/54 97 03/07/17 18:00 78 26 104/57 96 03/07/17 17:30 26 117/49 95 03/07/17 17:00 83 25 103/53 95 03/07/17 16:00 98.5 F 82 27 100/51 95 03/07/17 15:37 25 100/51 96 03/07/17 15:00 80 23 107/54 96 03/07/17 14:00 76 24 112/48 95 03/07/17 13:25 24 103/55 95 03/07/17 13:00 82 25 103/55 95 03/07/17 12:39 98.2 F 03/07/17 12:00 80 23 114/54 96 03/07/17 11:15 23 110/55 98 03/07/17 11:00 80 23 109/54 96 03/07/17 10:00 80 24 116/63 98 Intake and Output 03/07/17 03/08/17 03/08/17 23:59 07:59 15:59 Intake Total 1521 / 1521 1165 / 1165 Output Total 1400 / 1400 700 / 700 Balance 121 / 121 465 / 465 Intake: IV Fluids 1318 / 1318 310 / 310 Heparin 25,000 UNIT/500 500 / 500 100 / 100 ML D5W 25,000 unit In 500 ml @ 14 UNIT/KG/HR 24. 332 mls/hr IVC .[id number] [facility] Rx#:[id number] Levophed 8 MG In Dextrose 58 / 58 10 / 10 5% 250 ML @ 5 MCG/MIN 9. 67 mls/hr IVC CONT PRN Rx #:[id number] Azactam 500 MG In 100 / 100 100 / 100 Dextrose 5% 100 ML @ 200 mls/hr IVPB Q8H [facility] Rx#: [id number] Magnesium Sulfate 2 GM In 110 / 110 Dextrose 5% 100 ML @ 50 mls/hr IVPB Q6H PRN Rx#: [id number] Potassium Chloride 10 mEq 300 / 300 100 / 100 /100mL 10 meq In 100 ml @ 100 mls/hr IVPB Q1H PRN Rx#:[id number] Vancocin 1,250 MG In 250 / 250 Dextrose 5% 250 ML @ 166. 67 mls/hr IVPB ONCE ONE Rx#:[id number] Tube Feeding 143 / 143 615 / 615 Free Water 60 / 60 180 / 180 Free Water Intake Amount 60 / 60 Output: Urine 0 / 0 Stool 0 / 0 Rectal Tube 1400 / 1400 700 / 700 Other: Weight 92.624 kg Blood Glucose* 208 232 111 Patient Weight 03/08/17 23:59 Weight 92.624 kg - General Appearance General appearance: Present: well-developed, well-nourished, appears started age EENT: Present: mucous membranes moist Neck: Present: no JVD Respiratory: Present: course breath sounds, rhonchi Cardiology: Present: edema, irregular rhythm Gastrointestinal: Present: hypoactive bowel sounds Integumentary: Present: warm and dry Additional Comments: toes mottled - Lab 03/08/17 04:18 03/08/17 04:18 Most recent lab results ABG pH 7.39 pH Units (7.32-7.45) 03/08/17 03:50 ABG pCO2 38 mmHg (35-45) 03/08/17 03:50 ABG pO2 61 mmHg (85-104) L 03/08/17 03:50 ABG HCO3 23.0 mEQ/L (21-27) 03/08/17 03:50 ABG O2 Saturation 91 % (95-98) L 03/08/17 03:50 Calcium 8.4 mg/dL (8.6-10.8) L 03/08/17 04:18 Phosphorus 4.4 mg/dL (2.3-4.7) D 03/07/17 20:30 Magnesium 1.8 mg/dL (1.6-2.6) 03/07/17 20:30 - Stroke Is the patient on any antithrombotics?: No Contraindication Antithromb by Day Two: Not Indicated - Due to Bleeding Disorder or Risk of Bleeding (Coagulapathy with elevated INR) - VTE Reasons for not Prescribing Prophylaxis: Not indicated-Anticoagulated or INR therapeutic - AMI Reason for No Aspirin at Discharge: Drug treatment not indicated Consult Discharge Plan - Plan Referrals: Henrry Mccullough MD [Primary Care Provider] -
--- NOTE | 2017-03-08 09:15 | Pulmonology Progress Note ---
<Chadwick Rojas W - Last Filed: 03/08/17 13:38> Date of Encounter: 03/08/17 Objective PUL Vital signs: Last Vital Signs Temp 98.4 F 03/08/17 11:44 Pulse 91 03/08/17 12:00 Resp 27 03/08/17 12:00 BP 96/50 03/08/17 12:00 Pulse Ox 98 03/08/17 12:00 Ventilator Settings Ventilator Settings: Ventilator Settings, Last 8 Hours Ventilator Mode VC+ Ventilator Mode VC+ Ventilator Mode VC+ Ventilator Mode VC+ Ventilator Mode VC+ Ventilator Mode VC+ Ventilator Mode VC+ Ventilator Mode VC+ Ventilator Mode VC+ Ventilator Mode VC+ Ventilator Mode VC+ Ventilator Tidal Volume 350 Setting Ventilator Tidal Volume 350 Setting Ventilator Tidal Volume 350 Setting Ventilator Tidal Volume 350 Setting Ventilator Tidal Volume 350 Setting Ventilator Tidal Volume 350 Setting Ventilator Tidal Volume 350 Setting Ventilator Tidal Volume 350 Setting Ventilator Tidal Volume 350 Setting Ventilator Tidal Volume 350 Setting Ventilator Tidal Volume 350 Setting Ventilator Respiratory Rate 18 Setting Ventilator Respiratory Rate 18 Setting Ventilator Respiratory Rate 18 Setting Ventilator Respiratory Rate 18 Setting Ventilator Respiratory Rate 18 Setting Ventilator Respiratory Rate 18 Setting Ventilator Respiratory Rate 18 Setting Ventilator Respiratory Rate 18 Setting Ventilator Respiratory Rate 18 Setting Ventilator Respiratory Rate 18 Setting Ventilator Respiratory Rate 18 Setting Actual Respiratory Rate 25 Actual Respiratory Rate 22 Actual Respiratory Rate 18 Actual Respiratory Rate 24 Actual Respiratory Rate 25 Positive End Expiratory 8 Pressure Positive End Expiratory 8 Pressure Positive End Expiratory 8 Pressure Positive End Expiratory 8 Pressure Positive End Expiratory 8 Pressure Positive End Expiratory 8 Pressure Positive End Expiratory 8 Pressure Positive End Expiratory 8 Pressure Positive End Expiratory 8 Pressure Positive End Expiratory 8 Pressure Positive End Expiratory 8 Pressure Peak Inspiratory Airway 31 Pressure Peak Inspiratory Airway 31 Pressure Peak Inspiratory Airway 30 Pressure Peak Inspiratory Airway 18 Pressure Peak Inspiratory Airway 19 Pressure Results - Laboratory Findings CBC and BMP: 03/08/17 04:18 03/08/17 04:18 ABG ABG pH 7.39 pH Units (7.32-7.45) 03/08/17 03:50 ABG pCO2 38 mmHg (35-45) 03/08/17 03:50 ABG pO2 61 mmHg (85-104) L 03/08/17 03:50 ABG O2 Saturation 91 % (95-98) L 03/08/17 03:50 PT/INR, D-dimer PT 12.6 Seconds (9.4-12.1) H 03/06/17 03:10 D-Dimer 874 ng/mLFEU (0-500) H 03/03/17 04:18 Abnormal lab findings: Abnormal lab results WBC 30.1 K/mcL (4.3-11.1) H* 03/08/17 04:18 RBC 3.68 M/mcL (3.82-4.97) L 03/08/17 04:18 Hgb 8.2 g/dL (11.5-15.4) L 03/08/17 04:18 Hct 28.0 % (35.3-44.9) L 03/08/17 04:18 MCV 76.1 fL (83.0-100.0) L 03/08/17 04:18 MCH 22.3 pg (28.0-33.3) L 03/08/17 04:18 MCHC 29.3 g/dL (31.6-35.5) L 03/08/17 04:18 RDW 21.5 % (11.5-14.5) H 03/08/17 04:18 Plt Count 116 K/mcL (140-400) L 03/08/17 04:18 Immature Gran % 6.0 % (0-4) H 03/07/17 03:15 Band Neutrophils % 28.0 % (0-4) H 03/04/17 04:54 Myelocytes % 2.0 % (0) H 03/08/17 04:18 Neutrophils # 27.7 K/mcL (1.6-8.9) H 03/08/17 04:18 Nucleated RBCs/100 WBC 0.6 /100 WBC (0) H 03/08/17 04:18 Toxic Granulation Present (Not Present) A 03/03/17 03:15 Platelet Estimate Slight Decrease (Normal) L 03/08/17 04:18 Immature Plt Fraction 6.9 % (1.1-6.1) H 03/07/17 03:15 Polychromasia 1+ (Not Present) A 03/02/17 08:10 Hypochromasia Present (Not Present) A 03/07/17 03:15 Poikilocytosis 1+ (Not Present) A 03/06/17 03:10 Basophilic Stippling 1+ (Not Present) A 02/25/17 07:11 Anisocytosis 2+ (Not Present) A 03/08/17 04:18 Microcytosis Present (Not Present) A 03/08/17 04:18 Macrocytosis Present (Not Present) A 03/05/17 03:50 Target Cells 1+ (Not Present) A 03/07/17 03:15 Hiren Cells 1+ (Not Present) A 03/06/17 03:10 Acanthocytes (Spur) 1+ (Not Present) A 03/05/17 03:50 PT 12.6 Seconds (9.4-12.1) H 03/06/17 03:10 APTT 58.4 Seconds (26.0-36.0) H 03/08/17 04:18 Fibrinogen 482 mg/dL (169-393) H 03/03/17 04:18 D-Dimer 874 ng/mLFEU (0-500) H 03/03/17 04:18 Heparin Anti-Xa, Unfract 0.01 IU/mL (0.30-0.70) L 03/01/17 04:10 ABG pO2 61 mmHg (85-104) L 03/08/17 03:50 ABG O2 Saturation 91 % (95-98) L 03/08/17 03:50 VBG pH 7.08 pH Units (7.32-7.42) L* 02/25/17 05:40 VBG pCO2 92 mmHg (41-51) H 02/25/17 05:40 VBG pO2 67 mmHg (25-40) H 02/25/17 05:40 VBG HCO3 27.3 mEq/L (21-27) H 02/25/17 05:40 Sodium 132 mEq/L (136-145) L 03/08/17 04:18 BUN 35 mg/dL (7-20) H 03/08/17 04:18 Creatinine 2.66 mg/dL (0.57-1.11) H 03/08/17 04:18 Est GFR ( Amer) 21 (> 60) L 03/08/17 04:18 Est GFR (Non-Af Amer) 18 (> 60) L 03/08/17 04:18 Glucose 136 mg/dL (70-99) H 03/08/17 04:18 POC Glucose 149 (58-89) H 03/08/17 00:11 Calcium 8.4 mg/dL (8.6-10.8) L 03/08/17 04:18 Direct Bilirubin 0.8 mg/dL (0.0-0.5) H 03/07/17 03:15 Alkaline Phosphatase 673 Units/L (38-126) H 03/08/17 04:18 B-Natriuretic Peptide 2203 pg/mL (0-100) H 02/25/17 07:11 Serum Total Protein 4.7 g/dL (6.0-8.3) L 03/08/17 04:18 Albumin 1.6 g/dL (3.5-5.0) L 03/08/17 04:18 Albumin/Globulin Ratio 0.5 (1.1-2.2) L 03/08/17 04:18 Amylase 16 Units/L (25-125) L 03/04/17 15:00 Ur Specimen Adequacy See below A 02/25/17 06:28 Urine Clarity Turbid (Clear) A 02/25/17 06:28 Urine Protein >=300 mg/dL (Neg-Trace) H 02/25/17 06:28 Urine Ketones Trace mg/dL (Negative) H 02/25/17 06:28 Urine Blood Large (Negative) H 02/25/17 06:28 Ur Leukocyte Esterase Large (Negative) H 02/25/17 06:28 Ur Culture Indicated? YES (NO) A 02/25/17 06:28 Pleural Appearance Hazy (Clear) A 02/26/17 15:30 Pleural RBC 0.020 M/mcL (0.000-0.002) H 02/26/17 15:30 - Microbiology Findings Microbiology Findings: Microbiology, Last 48 Hours 03/04/17 15:47 Urine Culture - Preliminary Urine,Catheterized Gram Positive Cocci Yeast Species 03/05/17 11:40 Sputum Culture - Final Sputum Methicillin Resistant S.aureus - Clinical Findings Intake & Output: Intake & Output 03/07/17 03/08/17 03/08/17 23:59 07:59 15:59 Intake Total 1521 / 1521 1165 / 1165 403 / 403 Output Total 1400 / 1400 700 / 700 200 / 200 Balance 121 / 121 465 / 465 203 / 203 Weight 92.624 kg Consult Discharge Plan - Plan Referrals: Henrry Mccullough MD [Primary Care Provider] - - Attending Attestation I examined this patient and my medical decision-making was reviewed with the Resident Physician. I agree with the documented findings, disposition and treatment plan as described except to the extent set forth below. Patient seen and examined at bedside Labs, radiology, chart personally reviewed. All lines examined without evidence of infection. Management was reviewed during multidisciplinary critical care rounds. Neuropsych: Remains encephalopathic a bit more responsive to voice today although still not able to follow commands Pulm: Stable oxygen requirements on vent continue low tidal volume ventilatory strategy she has evidence of volume overload on chest x-ray which is slightly better than before; continue ventilator bundle to prevent VAP Cards: Patient was restarted on vasopressor support for distributive shock from sepsis continue titrate for goal map greater then 60 FEN-GI: Continue enteral nutrition GI prophylaxis given Renal: ESRD status post dialysis yesterday continue to replace electrolytes per protocol ID: Worsening leukocytosis she is on broad-spectrum antibiotics which have been adjusted to treat for MRSA pneumonia along with possible gram-negative source we will stop Flagyl and aztreonam and broadened to Meropenem for possible ESBL we have also switched linezolid for vancomycin given worsening thrombocytopenia ; the infectious disease service is following with this patient Heme/Onc: Worsening thrombocytopenia which is likely secondary to infection we have held her infusion of heparin for this reason H&H is stable Endo: Glucose monitored Integ/MSK: Skin care per routine ICU protocol; his worsening cyanosis of the lower extremities may need surgery vascular surgery and podiatry have both evaluated this patient CODE:[id number] overall poor prognosis family updated at bedside <Lurdes Meyer - Last Filed: 03/08/17 14:11> Date of Encounter: 03/08/17 Time of Encounter: 09:08 Assessment and Plan (1) Acute and chronic respiratory failure Current Visit: Yes Status: Acute Patient intubated on the ventilator. Sedation is turned off. Patient is still just minimally responsive. She opens her eyes to loud verbal stimuli. She does withdraw from pain. Patient does have cyanosis to several toes on her feet bilaterally. Likely secondary to vasopressor use. Patient was initially weaned off pressors 2 days ago, however this was restarted due to hypotension. We are attempting to wean again today. ABIs as well as arterial Doppler of lower extremities were normal. Plan: Surgery on board for wound care of her decubitus ulcer. levofed as needed for map greater than 60. Will wean as tolerated. Vascular and podiatry consults due to cyanotic toes. Continue antibiotics per ID recommendation. Unknown source of sepsis. Does have positive MRSA sputum. Protonix for GI prophylaxis Continue to trend hemoglobin. No evidence of bleeding. Platelets were also low. We are continuing to hold the heparin. EPCDs for DVT prophylaxis. (2) Septic shock Current Visit: Yes Status: Acute (3) Acute encephalopathy Current Visit: Yes Status: Acute (4) Cirrhosis Current Visit: Yes Status: Chronic Qualifiers: Hepatic cirrhosis type: other cirrhosis Qualified Code(s): K74.69 - Other cirrhosis of liver (5) DM (diabetes mellitus), type 2 Current Visit: Yes Status: Chronic (6) Atrial fibrillation Current Visit: Yes Status: Chronic Qualifiers: Atrial fibrillation type: chronic Qualified Code(s): I48.2 - Chronic atrial fibrillation (7) Pressure ulcer Current Visit: Yes Status: Chronic Subjective Principal diagnosis: Encephalopathy Interval history: No events over night. Patient still on vasopressors. We will attempt to wean this. Chest x-ray ordered this morning showed improved aeration. Also bilateral pleural effusions. No significant increase in these. Patient is stooling with lactulose assistance. Patient's is off sedation. Still only minimally responsive. Today she is opening her eyes to loud verbal stimuli. However she will not track. Her pupils are reactive. Vascular and podiatry were contacted to discuss patient's cyanotic toes bilaterally. Her ELAYNE was normal as was her arterial Doppler. This is likely secondary to vasopressors. Patient's white count and alkaline phosphatase up today. Her platelets have decreased. We will continue the aztreonam and have added vancomycin. We will stop her heparin due to her platelets decreasing. There is still no signs of bleeding. Her hemoglobin remained stable. Patient remains encephalopathic. Objective PUL Vital signs: Last Vital Signs Temp 98 F 03/08/17 08:09 Pulse 78 03/08/17 08:00 Resp 21 03/08/17 08:00 BP 97/50 03/08/17 08:00 Pulse Ox 99 03/08/17 08:00 General appearance: other (Patient opens eyes to loud verbal stimuli. Does not track.) Eyes: nonicteric ENT: oropharynx moist Neck: supple Effort: normal Auscultation: bilateral: rhonchi Cardiovascular: regular rate and rhythm Gastrointestinal: normoactive bowel sounds, non-distended Integumentary: decubitus ulcer (To Biodex.) Extremities: pulses normal, cyanosis (To several toes on the left and right foot.) other (Patient is opening her eyes to loud verbal stimuli. She does not track.) Ventilator Settings Ventilator Settings: Ventilator Settings, Last 8 Hours Ventilator Mode VC+ Ventilator Mode VC+ Ventilator Mode VC+ Ventilator Mode VC+ Ventilator Mode VC+ Ventilator Mode VC+ Ventilator Mode VC+ Ventilator Mode VC+ Ventilator Mode VC+ Ventilator Tidal Volume 350 Setting Ventilator Tidal Volume 350 Setting Ventilator Tidal Volume 350 Setting Ventilator Tidal Volume 350 Setting Ventilator Tidal Volume 350 Setting Ventilator Tidal Volume 350 Setting Ventilator Tidal Volume 350 Setting Ventilator Tidal Volume 350 Setting Ventilator Tidal Volume 350 Setting Ventilator Respiratory Rate 18 Setting Ventilator Respiratory Rate 18 Setting Ventilator Respiratory Rate 18 Setting Ventilator Respiratory Rate 18 Setting Ventilator Respiratory Rate 18 Setting Ventilator Respiratory Rate 18 Setting Ventilator Respiratory Rate 18 Setting Ventilator Respiratory Rate 18 Setting Ventilator Respiratory Rate 18 Setting Actual Respiratory Rate 24 Actual Respiratory Rate 25 Actual Respiratory Rate 25 Actual Respiratory Rate 25 Actual Respiratory Rate 26 Actual Respiratory Rate 25 Positive End Expiratory 8 Pressure Positive End Expiratory 8 Pressure Positive End Expiratory 8 Pressure Positive End Expiratory 8 Pressure Positive End Expiratory 8 Pressure Positive End Expiratory 8 Pressure Positive End Expiratory 8 Pressure Positive End Expiratory 8 Pressure Positive End Expiratory 8 Pressure Peak Inspiratory Airway 18 Pressure Peak Inspiratory Airway 19 Pressure Peak Inspiratory Airway 21 Pressure Peak Inspiratory Airway 25 Pressure Peak Inspiratory Airway 31 Pressure Peak Inspiratory Airway 30 Pressure Results - Laboratory Findings CBC and BMP: 03/08/17 04:18 03/08/17 04:18 ABG ABG pH 7.39 pH Units (7.32-7.45) 03/08/17 03:50 ABG pCO2 38 mmHg (35-45) 03/08/17 03:50 ABG pO2 61 mmHg (85-104) L 03/08/17 03:50 ABG O2 Saturation 91 % (95-98) L 03/08/17 03:50 PT/INR, D-dimer PT 12.6 Seconds (9.4-12.1) H 03/06/17 03:10 D-Dimer 874 ng/mLFEU (0-500) H 03/03/17 04:18 Abnormal lab findings: Abnormal lab results WBC 30.1 K/mcL (4.3-11.1) H* 03/08/17 04:18 RBC 3.68 M/mcL (3.82-4.97) L 03/08/17 04:18 Hgb 8.2 g/dL (11.5-15.4) L 03/08/17 04:18 Hct 28.0 % (35.3-44.9) L 03/08/17 04:18 MCV 76.1 fL (83.0-100.0) L 03/08/17 04:18 MCH 22.3 pg (28.0-33.3) L 03/08/17 04:18 MCHC 29.3 g/dL (31.6-35.5) L 03/08/17 04:18 RDW 21.5 % (11.5-14.5) H 03/08/17 04:18 Plt Count 116 K/mcL (140-400) L 03/08/17 04:18 Immature Gran % 6.0 % (0-4) H 03/07/17 03:15 Band Neutrophils % 28.0 % (0-4) H 03/04/17 04:54 Myelocytes % 2.0 % (0) H 03/08/17 04:18 Neutrophils # 27.7 K/mcL (1.6-8.9) H 03/08/17 04:18 Nucleated RBCs/100 WBC 0.6 /100 WBC (0) H 03/08/17 04:18 Toxic Granulation Present (Not Present) A 03/03/17 03:15 Platelet Estimate Slight Decrease (Normal) L 03/08/17 04:18 Immature Plt Fraction 6.9 % (1.1-6.1) H 03/07/17 03:15 Polychromasia 1+ (Not Present) A 03/02/17 08:10 Hypochromasia Present (Not Present) A 03/07/17 03:15 Poikilocytosis 1+ (Not Present) A 03/06/17 03:10 Basophilic Stippling 1+ (Not Present) A 02/25/17 07:11 Anisocytosis 2+ (Not Present) A 03/08/17 04:18 Microcytosis Present (Not Present) A 03/08/17 04:18 Macrocytosis Present (Not Present) A 03/05/17 03:50 Target Cells 1+ (Not Present) A 03/07/17 03:15 Hiren Cells 1+ (Not Present) A 03/06/17 03:10 Acanthocytes (Spur) 1+ (Not Present) A 03/05/17 03:50 PT 12.6 Seconds (9.4-12.1) H 03/06/17 03:10 APTT 58.4 Seconds (26.0-36.0) H 03/08/17 04:18 Fibrinogen 482 mg/dL (169-393) H 03/03/17 04:18 D-Dimer 874 ng/mLFEU (0-500) H 03/03/17 04:18 Heparin Anti-Xa, Unfract 0.01 IU/mL (0.30-0.70) L 03/01/17 04:10 ABG pO2 61 mmHg (85-104) L 03/08/17 03:50 ABG O2 Saturation 91 % (95-98) L 03/08/17 03:50 VBG pH 7.08 pH Units (7.32-7.42) L* 02/25/17 05:40 VBG pCO2 92 mmHg (41-51) H 02/25/17 05:40 VBG pO2 67 mmHg (25-40) H 02/25/17 05:40 VBG HCO3 27.3 mEq/L (21-27) H 02/25/17 05:40 Sodium 132 mEq/L (136-145) L 03/08/17 04:18 BUN 35 mg/dL (7-20) H 03/08/17 04:18 Creatinine 2.66 mg/dL (0.57-1.11) H 03/08/17 04:18 Est GFR ( Amer) 21 (> 60) L 03/08/17 04:18 Est GFR (Non-Af Amer) 18 (> 60) L 03/08/17 04:18 Glucose 136 mg/dL (70-99) H 03/08/17 04:18 POC Glucose 149 (58-89) H 03/08/17 00:11 Calcium 8.4 mg/dL (8.6-10.8) L 03/08/17 04:18 Direct Bilirubin 0.8 mg/dL (0.0-0.5) H 03/07/17 03:15 Alkaline Phosphatase 673 Units/L (38-126) H 03/08/17 04:18 B-Natriuretic Peptide 2203 pg/mL (0-100) H 02/25/17 07:11 Serum Total Protein 4.7 g/dL (6.0-8.3) L 03/08/17 04:18 Albumin 1.6 g/dL (3.5-5.0) L 03/08/17 04:18 Albumin/Globulin Ratio 0.5 (1.1-2.2) L 03/08/17 04:18 Amylase 16 Units/L (25-125) L 03/04/17 15:00 Ur Specimen Adequacy See below A 02/25/17 06:28 Urine Clarity Turbid (Clear) A 02/25/17 06:28 Urine Protein >=300 mg/dL (Neg-Trace) H 02/25/17 06:28 Urine Ketones Trace mg/dL (Negative) H 02/25/17 06:28 Urine Blood Large (Negative) H 02/25/17 06:28 Ur Leukocyte Esterase Large (Negative) H 02/25/17 06:28 Ur Culture Indicated? YES (NO) A 02/25/17 06:28 Pleural Appearance Hazy (Clear) A 02/26/17 15:30 Pleural RBC 0.020 M/mcL (0.000-0.002) H 02/26/17 15:30 - Microbiology Findings Microbiology Findings: Microbiology, Last 48 Hours 03/04/17 15:47 Urine Culture - Preliminary Urine,Catheterized Gram Positive Cocci Yeast Species 03/05/17 11:40 Sputum Culture - Final Sputum Methicillin Resistant S.aureus 03/04/17 15:00 Blood Culture - Preliminary Central Venous Catheter No growth. 03/04/17 15:00 Blood Culture - Preliminary Central Venous Catheter No growth. 03/04/17 19:50 Blood Culture - Preliminary Peripheral Venipuncture No growth. - Clinical Findings Intake & Output: Intake & Output 03/07/17 03/08/17 03/08/17 23:59 07:59 15:59 Intake Total 1521 / 1521 1165 / 1165 Output Total 1400 / 1400 700 / 700 Balance 121 / 121 465 / 465 Weight 92.624 kg - Stroke Is the patient on any antithrombotics?: No Are there any contradictions to antithrombotics?: Yes Contraindication Antithromb by Day Two: Not Indicated - Due to Bleeding Disorder or Risk of Bleeding (Coagulapathy with elevated INR) - VTE Reasons for not Prescribing Prophylaxis: Not indicated-Anticoagulated or INR therapeutic - AMI Reason for No Aspirin at Discharge: Drug treatment not indicated
--- NOTE | 2017-03-08 09:17 | Pulmonology Progress Note ---
Date of Encounter: 03/08/17 Time of Encounter: : Assessment and Plan (1) Acute and chronic respiratory failure Current Visit: Yes Status: Acute Patient intubated on the ventilator. Sedation is turned off. Patient is still just minimally responsive. She does not respond to verbal stimuli. She does withdraw from pain Patient does have cyanosis to several toes on her feet bilaterally. Patient was initially weaned off pressors 2 days ago, however this was restarted due to hypotension. We are attempting to wean again today. ABIs as well as arterial Doppler of lower extremities were normal. Plan: levofed as needed for map greater than 60. Will wean as tolerated. Vascular and podiatry consults due to cyanotic toes. Continue antibiotics per ID recommendation. Unknown source of sepsis. Does have positive MRSA sputum. Protonix for GI prophylaxis Continue to trend hemoglobin. No evidence of bleeding. Platelets were also low. We are continuing to hold the heparin. Skin care for pressure ulcer (2) Septic shock Current Visit: Yes Status: Acute (3) Acute encephalopathy Current Visit: Yes Status: Acute (4) Cirrhosis Current Visit: Yes Status: Chronic (5) DM (diabetes mellitus), type 2 Current Visit: Yes Status: Chronic (6) Atrial fibrillation Current Visit: Yes Status: Chronic (7) Pressure ulcer Current Visit: Yes Status: Chronic Subjective Principal diagnosis: Encephalopathy Interval history: No events over night. Patient still on vasopressors. We will attempt to wean this. Chest x-ray ordered this morning showed improved aeration. Also bilateral pleural effusions. No significant increase in these. Patient is stooling with lactulose assistance. Patient's is off sedation. Still only minimally responsive. Today she is opening her eyes to loud verbal stimuli. However she will not track. Her pupils are reactive. Vascular and podiatry were contacted to discuss patient's cyanotic toes bilaterally. Her ELAYNE was normal as was her arterial Doppler. This is likely secondary to vasopressors. Patient's white count and alkaline phosphatase up today. Her platelets have decreased.. We will continue the aztreonam and have added vancomycin. We will stop her heparin due to her platelets decreasing. There is still no signs of bleeding. Her hemoglobin remained stable. Patient remains encephalopathic. Objective PUL Vital signs: Last Vital Signs Temp 98 F 03/08/17 08:09 Pulse 78 03/08/17 08:00 Resp 21 03/08/17 08:00 BP 97/50 03/08/17 08:00 Pulse Ox 99 03/08/17 08:00 Ventilator Settings Ventilator Settings: Ventilator Settings, Last 8 Hours Ventilator Mode VC+ Ventilator Mode VC+ Ventilator Mode VC+ Ventilator Mode VC+ Ventilator Mode VC+ Ventilator Mode VC+ Ventilator Mode VC+ Ventilator Mode VC+ Ventilator Mode VC+ Ventilator Tidal Volume 350 Setting Ventilator Tidal Volume 350 Setting Ventilator Tidal Volume 350 Setting Ventilator Tidal Volume 350 Setting Ventilator Tidal Volume 350 Setting Ventilator Tidal Volume 350 Setting Ventilator Tidal Volume 350 Setting Ventilator Tidal Volume 350 Setting Ventilator Tidal Volume 350 Setting Ventilator Respiratory Rate 18 Setting Ventilator Respiratory Rate 18 Setting Ventilator Respiratory Rate 18 Setting Ventilator Respiratory Rate 18 Setting Ventilator Respiratory Rate 18 Setting Ventilator Respiratory Rate 18 Setting Ventilator Respiratory Rate 18 Setting Ventilator Respiratory Rate 18 Setting Ventilator Respiratory Rate 18 Setting Actual Respiratory Rate 24 Actual Respiratory Rate 25 Actual Respiratory Rate 25 Actual Respiratory Rate 25 Actual Respiratory Rate 26 Actual Respiratory Rate 25 Positive End Expiratory 8 Pressure Positive End Expiratory 8 Pressure Positive End Expiratory 8 Pressure Positive End Expiratory 8 Pressure Positive End Expiratory 8 Pressure Positive End Expiratory 8 Pressure Positive End Expiratory 8 Pressure Positive End Expiratory 8 Pressure Positive End Expiratory 8 Pressure Peak Inspiratory Airway 18 Pressure Peak Inspiratory Airway 19 Pressure Peak Inspiratory Airway 21 Pressure Peak Inspiratory Airway 25 Pressure Peak Inspiratory Airway 31 Pressure Peak Inspiratory Airway 30 Pressure Results - Laboratory Findings CBC and BMP: 03/08/17 04:18 03/08/17 04:18 ABG ABG pH 7.39 pH Units (7.32-7.45) 03/08/17 03:50 ABG pCO2 38 mmHg (35-45) 03/08/17 03:50 ABG pO2 61 mmHg (85-104) L 03/08/17 03:50 ABG O2 Saturation 91 % (95-98) L 03/08/17 03:50 PT/INR, D-dimer PT 12.6 Seconds (9.4-12.1) H 03/06/17 03:10 D-Dimer 874 ng/mLFEU (0-500) H 03/03/17 04:18 Abnormal lab findings: Abnormal lab results WBC 30.1 K/mcL (4.3-11.1) H* 03/08/17 04:18 RBC 3.68 M/mcL (3.82-4.97) L 03/08/17 04:18 Hgb 8.2 g/dL (11.5-15.4) L 03/08/17 04:18 Hct 28.0 % (35.3-44.9) L 03/08/17 04:18 MCV 76.1 fL (83.0-100.0) L 03/08/17 04:18 MCH 22.3 pg (28.0-33.3) L 03/08/17 04:18 MCHC 29.3 g/dL (31.6-35.5) L 03/08/17 04:18 RDW 21.5 % (11.5-14.5) H 03/08/17 04:18 Plt Count 116 K/mcL (140-400) L 03/08/17 04:18 Immature Gran % 6.0 % (0-4) H 03/07/17 03:15 Band Neutrophils % 28.0 % (0-4) H 03/04/17 04:54 Myelocytes % 2.0 % (0) H 03/08/17 04:18 Neutrophils # 27.7 K/mcL (1.6-8.9) H 03/08/17 04:18 Nucleated RBCs/100 WBC 0.6 /100 WBC (0) H 03/08/17 04:18 Toxic Granulation Present (Not Present) A 03/03/17 03:15 Platelet Estimate Slight Decrease (Normal) L 03/08/17 04:18 Immature Plt Fraction 6.9 % (1.1-6.1) H 03/07/17 03:15 Polychromasia 1+ (Not Present) A 03/02/17 08:10 Hypochromasia Present (Not Present) A 03/07/17 03:15 Poikilocytosis 1+ (Not Present) A 03/06/17 03:10 Basophilic Stippling 1+ (Not Present) A 02/25/17 07:11 Anisocytosis 2+ (Not Present) A 03/08/17 04:18 Microcytosis Present (Not Present) A 03/08/17 04:18 Macrocytosis Present (Not Present) A 03/05/17 03:50 Target Cells 1+ (Not Present) A 03/07/17 03:15 [place] Cells 1+ (Not Present) A 03/06/17 03:10 Acanthocytes (Spur) 1+ (Not Present) A 03/05/17 03:50 PT 12.6 Seconds (9.4-12.1) H 03/06/17 03:10 APTT 58.4 Seconds (26.0-36.0) H 03/08/17 04:18 Fibrinogen 482 mg/dL (169-393) H 03/03/17 04:18 D-Dimer 874 ng/mLFEU (0-500) H 03/03/17 04:18 Heparin Anti-Xa, Unfract 0.01 IU/mL (0.30-0.70) L 03/01/17 04:10 ABG pO2 61 mmHg (85-104) L 03/08/17 03:50 ABG O2 Saturation 91 % (95-98) L 03/08/17 03:50 VBG pH 7.08 pH Units (7.32-7.42) L* 02/25/17 05:40 VBG pCO2 92 mmHg (41-51) H 02/25/17 05:40 VBG pO2 67 mmHg (25-40) H 02/25/17 05:40 VBG HCO3 27.3 mEq/L (21-27) H 02/25/17 05:40 Sodium 132 mEq/L (136-145) L 03/08/17 04:18 BUN 35 mg/dL (7-20) H 03/08/17 04:18 Creatinine 2.66 mg/dL (0.57-1.11) H 03/08/17 04:18 Est GFR ( Amer) 21 (> 60) L 03/08/17 04:18 Est GFR (Non-Af Amer) 18 (> 60) L 03/08/17 04:18 Glucose 136 mg/dL (70-99) H 03/08/17 04:18 POC Glucose 149 (58-89) H 03/08/17 00:11 Calcium 8.4 mg/dL (8.6-10.8) L 03/08/17 04:18 Direct Bilirubin 0.8 mg/dL (0.0-0.5) H 03/07/17 03:15 Alkaline Phosphatase 673 Units/L (38-126) H 03/08/17 04:18 B-Natriuretic Peptide 2203 pg/mL (0-100) H 02/25/17 07:11 Serum Total Protein 4.7 g/dL (6.0-8.3) L 03/08/17 04:18 Albumin 1.6 g/dL (3.5-5.0) L 03/08/17 04:18 Albumin/Globulin Ratio 0.5 (1.1-2.2) L 03/08/17 04:18 Amylase 16 Units/L (25-125) L 03/04/17 15:00 Ur Specimen Adequacy See below A 02/25/17 06:28 Urine Clarity Turbid (Clear) A 02/25/17 06:28 Urine Protein >=300 mg/dL (Neg-Trace) H 02/25/17 06:28 Urine Ketones Trace mg/dL (Negative) H 02/25/17 06:28 Urine Blood Large (Negative) H 02/25/17 06:28 Ur Leukocyte Esterase Large (Negative) H 02/25/17 06:28 Ur Culture Indicated? YES (NO) A 02/25/17 06:28 Pleural Appearance Hazy (Clear) A 02/26/17 15:30 Pleural RBC 0.020 M/mcL (0.000-0.002) H 02/26/17 15:30 - Microbiology Findings Microbiology Findings: Microbiology, Last 48 Hours 03/04/17 15:47 Urine Culture - Preliminary Urine,Catheterized Gram Positive Cocci Yeast Species 03/05/17 11:40 Sputum Culture - Final Sputum Methicillin Resistant S.aureus 03/04/17 15:00 Blood Culture - Preliminary Central Venous Catheter No growth. 03/04/17 15:00 Blood Culture - Preliminary Central Venous Catheter No growth. 03/04/17 19:50 Blood Culture - Preliminary Peripheral Venipuncture No growth. - Clinical Findings Intake & Output: Intake & Output 03/07/17 03/08/17 03/08/17 23:59 07:59 15:59 Intake Total 1521 / 1521 1165 / 1165 Output Total 1400 / 1400 700 / 700 Balance 121 / 121 465 / 465 Weight 92.624 kg - Stroke Contraindication Antithromb by Day Two: Not Indicated - Due to Bleeding Disorder or Risk of Bleeding (Coagulapathy with elevated INR) - VTE Reasons for not Prescribing Prophylaxis: Not indicated-Anticoagulated or INR therapeutic - AMI Reason for No Aspirin at Discharge: Drug treatment not indicated Consult Discharge Plan - Plan Referrals: Henrry Mccullough MD [Primary Care Provider] -
[2017-03-08] MEDS: FentaNYL (PF) 1,000 MCG in 0.9 % Sodium Chloride 80 ML IVC SCH (10:09)
[2017-03-08] MEDS: Vasopressin 40 UNIT in D5% in Water 100 ML IV SCH (10:09)
--- NOTE | 2017-03-08 10:14 | Infectious Disease Progress No ---
Date of Encounter: 03/08/17 Time of Encounter: 10:12 - Assessment and Plan (1) Septic shock Current Visit: Yes Status: Acute Patient no longer meets SIRS criteria. Fever has resolved. Leukocytosis is trending up. However unclear if secondary to infection or from ischemia of the feet? 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 Peripheral blood cultures from 02/26/17 show no growth to date. Blood cultures from tunneled dialysis catheter have grown 1/2 GPC. Repeat blood cultures from 03/04/17 show NGTD. Repeat urine culture from 03/04/17 is positive for yeast species and GPC ( possible Leukonstoc/sent out for confirmation) Sputum culture from 03/04/[address] of the abdomen pelvis and chest performed on 03/04/17 did not reveal a definite source of infection. There is some dependant consolidation/ atelectasis on the right " pneumonia could not be ruled out" Now with MRSA in the sputum. Tracheobronchitis vs. VAP vs. contamination? Source of infection is still unclear at this time. Multiple potental sources, Possible VAP/ tracheobronchitis pneumonia, versus infection from sacral wound, and UTI. Sacral wound dose not overtly appear infected but is covered with an eschar. Repeat CXR this AM reveals: "aeration is mildly improved from 03/01/2017. Persistent bibasilar airspace disease and small pleural effusions, larger on the left." Patient has been afebrile. Remains on pressor support. some improvement now with openingg eyes to verbal stimuli but still dose not follow commands. Recommendations: Continue Vancomycin with pharmacy to dose given her ESRD. Contineu Aztreonam. Start Fluconazole 200 mg IV daily Recommend wound care for sacral decubitus ulcer. Continue to monitor for drug toxicities. Monitor LFTs while on fluconazole. (2) Respiratory failure Current Visit: Yes Status: Acute Acute on chronic hypercapneic and hpoxemic. Currently on Ventilatory support. Pulmonology is managing. Qualifiers: Chronicity: unspecified Respiratory failure complication: hypoxia and hypercapnia Qualified Code(s): J96.91 - Respiratory failure, unspecified with hypoxia; J96.92 - Respiratory failure, unspecified with hypercapnia (3) Bacteremia Current Visit: Yes Status: Acute Contamination vs. true infection of tunneled dialysis catheter. 1/2 GPR jax represents contamination. Repeat blood cultures from 03/04/17 show NGTD. (4) Encephalopathy Current Visit: Yes Status: Acute in the setting of cirrhosis and ESRD with Septic shock. Patient is receiving lactulose through the NG. mild improvement and now opening eyes to verbal stimuli. continue to monitor (5) Decubitus ulcer of sacral region, unstageable Current Visit: Yes Status: Acute Patient has large unstagable sacral decubitus ulcer with large eschar. Dose not seem to be overtly infected on exam. Would recommend wound care if not already following. (6) Lower limb ischemia Current Visit: Yes Status: Acute Possibly from pressor agents. Normal preliminary ABIs. Developed after admission. Doubt an infectious process. Could be contributing to the patient's high WBC count. (7) Cirrhosis Current Visit: Yes Status: Acute management per primary team. Qualifiers: Hepatic cirrhosis type: unspecified hepatic cirrhosis Ascites presence: without ascites Qualified Code(s): K74.60 - Unspecified cirrhosis of liver (8) UTI (urinary tract infection) Current Visit: Yes Status: Acute repeat urine culture has grown Yeast and GPC. recommend continuing vancomycin. Qualifiers: Urinary tract infection type: site unspecified Hematuria presence: without hematuria Qualified Code(s): N39.0 - Urinary tract infection, site not specified (9) ESRD (end stage renal disease) on dialysis Current Visit: Yes Status: Acute management per nephrology. patient currently has access with a left tunneled dialysis catheter. Has fistula in left wrist but dose not appear to be functional. (10) Vancomycin resistant Enterococcus infection Current Visit: Yes Status: Resolved Repeat Cultures have grown GPC and yeast. final results pending. (11) Closed fracture of greater trochanter of femur Current Visit: Yes Status: Acute Closed nondiscplaced fracture of the right femural greater trochanter. No evidence on infection on imaging. I think this is unlikely to be the source of infection. Qualifiers: Encounter type: subsequent encounter Fracture alignment: nondisplaced Laterality: right Fracture healing: with malunion Qualified Code(s): S72.114P - Nondisplaced fracture of greater trochanter of right femur, subsequent encounter for closed fracture with malunion (12) Thrombocytopenia Current Visit: Yes Status: Acute doubt that this is secondary to antibiotics at this time. However Linezolid was discontinued yesterday. continue to follow. - Subjective Interval history: No major events overnight. PAtient still requiring levofed to maintain her MAP > 60. She is now opening her eyes to verbal stimuli but has not followed any commands. Infect Dis PN-Objective Data - Labs CBC & Chem 7: 03/08/17 04:18 03/08/17 04:18 Labs: Laboratory Results - last 24 hr 03/07/17 03/07/17 03/07/17 04:06 08:02 12:36 WBC RBC Hgb Hct MCV MCH MCHC RDW Plt Count MPV Seg Neutrophils % Lymphocytes % Monocytes % Myelocytes % Neutrophils # Lymphocytes # Monocytes # Nucleated RBCs/100 WBC Platelet Estimate Anisocytosis Microcytosis APTT ABG pH ABG pCO2 ABG pO2 ABG HCO3 ABG Total CO2 ABG O2 Saturation ABG Base Excess Respiration Rate Blood Gas Modality Inspired O2 Tidal Volume PEEP Sodium Potassium Chloride Carbon Dioxide BUN Creatinine Est GFR ( Amer) Est GFR (Non-Af Amer) BUN/Creatinine Ratio Glucose POC Glucose 154 H 145 H 171 H Calculated Osmolality Calcium Ionized Calcium Phosphorus Magnesium Total Bilirubin AST ALT Alkaline Phosphatase Serum Total Protein Albumin Globulin Albumin/Globulin Ratio 03/07/17 03/07/17 03/07/17 16:17 19:42 20:30 WBC RBC Hgb Hct MCV MCH MCHC RDW Plt Count MPV Seg Neutrophils % Lymphocytes % Monocytes % Myelocytes % Neutrophils # Lymphocytes # Monocytes # Nucleated RBCs/100 WBC Platelet Estimate Anisocytosis Microcytosis APTT ABG pH ABG pCO2 ABG pO2 ABG HCO3 ABG Total CO2 ABG O2 Saturation ABG Base Excess Respiration Rate Blood Gas Modality Inspired O2 Tidal Volume PEEP Sodium Potassium 3.5 Chloride Carbon Dioxide BUN Creatinine Est GFR ( Amer) Est GFR (Non-Af Amer) BUN/Creatinine Ratio Glucose POC Glucose 155 H 208 H Calculated Osmolality Calcium Ionized Calcium Phosphorus 4.4 D Magnesium 1.8 Total Bilirubin AST ALT Alkaline Phosphatase Serum Total Protein Albumin Globulin Albumin/Globulin Ratio 03/08/17 03/08/17 03/08/17 00:11 03:50 04:18 WBC RBC Hgb Hct MCV MCH MCHC RDW Plt Count MPV Seg Neutrophils % Lymphocytes % Monocytes % Myelocytes % Neutrophils # Lymphocytes # Monocytes # Nucleated RBCs/100 WBC Platelet Estimate Anisocytosis Microcytosis APTT ABG pH 7.39 ABG pCO2 38 ABG pO2 61 L ABG HCO3 23.0 ABG Total CO2 24.2 ABG O2 Saturation 91 L ABG Base Excess -1.7 Respiration Rate 18 Blood Gas Modality VCT Inspired O2 30 Tidal Volume 350 PEEP 8 Sodium Potassium Chloride Carbon Dioxide BUN Creatinine Est GFR ( Amer) Est GFR (Non-Af Amer) BUN/Creatinine Ratio Glucose POC Glucose 149 H Calculated Osmolality Calcium Ionized Calcium 1.18 Phosphorus Magnesium Total Bilirubin AST ALT Alkaline Phosphatase Serum Total Protein Albumin Globulin Albumin/Globulin Ratio 03/08/17 03/08/17 03/08/17 04:18 04:18 04:18 WBC 30.1 H* RBC 3.68 L Hgb 8.2 L Hct 28.0 L MCV 76.1 L MCH 22.3 L MCHC 29.3 L RDW 21.5 H Plt Count 116 L MPV 10.5 Seg Neutrophils % 92.0 Lymphocytes % 2.0 Monocytes % 4.0 Myelocytes % 2.0 H Neutrophils # 27.7 H Lymphocytes # 0.6 Monocytes # 1.2 Nucleated RBCs/100 WBC 0.6 H Platelet Estimate Slight Decrease L Anisocytosis 2+ A Microcytosis Present A APTT 58.4 H ABG pH ABG pCO2 ABG pO2 ABG HCO3 ABG Total CO2 ABG O2 Saturation ABG Base Excess Respiration Rate Blood Gas Modality Inspired O2 Tidal Volume PEEP Sodium 132 L Potassium 3.9 Chloride 99 Carbon Dioxide 23 BUN 35 H Creatinine 2.66 H Est GFR ( Amer) 21 L Est GFR (Non-Af Amer) 18 L BUN/Creatinine Ratio 13 Glucose 136 H POC Glucose Calculated Osmolality 284 Calcium 8.4 L Ionized Calcium Phosphorus Magnesium Total Bilirubin 1.0 AST 18 ALT 14 Alkaline Phosphatase 673 H Serum Total Protein 4.7 L Albumin 1.6 L Globulin 3.1 Albumin/Globulin Ratio 0.5 L Cultures: Cultures 03/04/17 15:47 Urine Culture - Preliminary Urine,Catheterized Gram Positive Cocci Yeast Species 03/05/17 11:40 Sputum Culture - Final Sputum Methicillin Resistant S.aureus 03/04/17 15:00 Blood Culture - Preliminary Central Venous Catheter No growth. 03/04/17 15:00 Blood Culture - Preliminary Central Venous Catheter No growth. 03/04/17 19:50 Blood Culture - Preliminary Peripheral Venipuncture No growth. 02/26/17 12:41 Blood Culture - Preliminary Port System Gram Positive Rods 02/26/17 12:41 Blood Culture - Final Port System No growth. 02/26/17 10:27 Blood Culture - Final Peripheral Venipuncture No growth. 02/26/17 10:20 Blood Culture - Final Peripheral Venipuncture No growth. 02/26/17 15:30 Body Fluid Culture - Final Pleural Fluid 02/25/17 14:20 Sputum Culture - Final Sputum Nitesha ascorbata Serology 03/05/17 02/27/17 02/26/17 Range/Units 04:10 16:20 15:30 Pleural Fluid Volume 15.0 mL Pleural Appearance Hazy A (Clear) Pleural pH 7.51 (No Ref Range) pH Units Pleural RBC 0.020 H (0.000 - 0.002) M/mcL Pleural Tot Nuc Cell 181 (0-1000) TNC/mcL Pleural Neutrophils 47.0 % Pleural Band Neuts 3.0 % Pleural Eosinophils Test Not Performed Pleural Basophils Test Not Performed Pleural Lymphocytes % 35.0 % Pleural Monocytes % 5.0 % Pleural Other Cells % 10.0 % Pleural Total Protein 2.6 (No Ref Range) g/dL Pleural Albumin 1.5 (No Ref Range) g/dL Pleural LDH 115 (No Ref Range) Units/L Pleural Glucose 171 (No Ref Range) mg/dL Pleural Amylase 21 (No Ref Range) Units/L Pleural Cholesterol 46 (No Ref Range) mg/dL Pleural Triglycerides 25 (No Ref Range) mg/dL Stl C. cayetanensis PCR Not detected (Not detect) Stool Rotavirus A PCR Not detected (Not detect) Stl Adenov F 40/41 PCR Not detected (Not detect) Stool Astrovirus (PCR) Not detected (Not detect) Stool Campylobacter PCR Not detected (Not detect) Stl C. diff Tox A/B PCR Not detected (Not detect) Stool Cryptosporidium PCR Not detected (Not detect) Stl Sh Tox Pr E STEC PCR Not detected (Not detect) Stool E coli O157 PCR Not detected (Not detect) Stl Enterotoxigenic E PCR Not detected (Not detect) Stool EPEC (PCR) Not detected (Not detect) Stool EAEC (PCR) Not detected (Not detect) Stl E. histolytica PCR Not detected (Not detect) Stool Giardia Lamblia PCR Not detected (Not detect) Stool Salmonella PCR Not detected (Not detect) Stool Sapovirus (PCR) Not detected (Not detect) Stl P. shigelloides PCR Not detected (Not detect) Stl Shigella/EIEC PCR Not detected (Not detect) St Y.enterocolitica PCR Not detected (Not detect) Stool Vibrio (PCR) Not detected (Not detect) Stl Vibrio cholerae PCR Not detected (Not detect) Stl Norovirus GI/GII PCR Not detected (Not detect) Stl GI Panel (PCR) Com See below Chlamy pneumoniae PCR Not Detected (Not Detect) Adenovirus (PCR) Not Detected (Not Detect) B. pertussis DNA (PCR) Not Detected (Not Detect) Coronavirus OC43 (PCR) Not Detected (Not Detect) Coronavirus HKU1 (PCR) Not Detected (Not Detect) Coronavirus 229E (PCR) Not Detected (Not Detect) Coronavirus NL63 (PCR) Not Detected (Not Detect) Hep Bs Antigen (Nonreactive) Hep Bs Antibody mIU/mL Human Metapneumovir PCR Not Detected (Not Detect) Influenza A (H1) PCR Not Detected (Not Detect) Influ A (H1N1/09) PCR Not Detected (Not Detect) Influenza A (H3) PCR Not Detected (Not Detect) Influenza A Untype (PCR) Not Detected (Not Detect) Influenza Type B (PCR) Not Detected (Not Detect) M.pneumoniae DNA (PCR) Not Detected (Not Detect) Parainfluenza 1 (PCR) Not Detected (Not Detect) Parainfluenza 2 (PCR) Not Detected (Not Detect) Parainfluenza 3 (PCR) Not Detected (Not Detect) Parainfluenza 4 (PCR) Not Detected (Not Detect) RSV (PCR) Not Detected (Not Detect) Entero/Rhino (PCR) Not Detected (Not Detect) 02/25/17 Range/Units 11:00 Pleural Fluid Volume mL Pleural Appearance (Clear) Pleural pH (No Ref Range) pH Units Pleural RBC (0.000 - 0.002) M/mcL Pleural Tot Nuc Cell (0-1000) TNC/mcL Pleural Neutrophils % Pleural Band Neuts % Pleural Eosinophils Pleural Basophils Pleural Lymphocytes % % Pleural Monocytes % % Pleural Other Cells % % Pleural Total Protein (No Ref Range) g/dL Pleural Albumin (No Ref Range) g/dL Pleural LDH (No Ref Range) Units/L Pleural Glucose (No Ref Range) mg/dL Pleural Amylase (No Ref Range) Units/L Pleural Cholesterol (No Ref Range) mg/dL Pleural Triglycerides (No Ref Range) mg/dL Stl C. cayetanensis PCR (Not detect) Stool Rotavirus A PCR (Not detect) Stl Adenov F 40/41 PCR (Not detect) Stool Astrovirus (PCR) (Not detect) Stool Campylobacter PCR (Not detect) Stl C. diff Tox A/B PCR (Not detect) Stool Cryptosporidium PCR (Not detect) Stl Sh Tox Pr E STEC PCR (Not detect) Stool E coli O157 PCR (Not detect) Stl Enterotoxigenic E PCR (Not detect) Stool EPEC (PCR) (Not detect) Stool EAEC (PCR) (Not detect) Stl E. histolytica PCR (Not detect) Stool Giardia Lamblia PCR (Not detect) Stool Salmonella PCR (Not detect) Stool Sapovirus (PCR) (Not detect) Stl P. shigelloides PCR (Not detect) Stl Shigella/EIEC PCR (Not detect) St Y.enterocolitica PCR (Not detect) Stool Vibrio (PCR) (Not detect) Stl Vibrio cholerae PCR (Not detect) Stl Norovirus GI/GII PCR (Not detect) Stl GI Panel (PCR) Com Chlamy pneumoniae PCR (Not Detect) Adenovirus (PCR) (Not Detect) B. pertussis DNA (PCR) (Not Detect) Coronavirus OC43 (PCR) (Not Detect) Coronavirus HKU1 (PCR) (Not Detect) Coronavirus 229E (PCR) (Not Detect) Coronavirus NL63 (PCR) (Not Detect) Hep Bs Antigen Nonreactive (Nonreactive) Hep Bs Antibody 0.23 mIU/mL Human Metapneumovir PCR (Not Detect) Influenza A (H1) PCR (Not Detect) Influ A (H1N1/09) PCR (Not Detect) Influenza A (H3) PCR (Not Detect) Influenza A Untype (PCR) (Not Detect) Influenza Type B (PCR) (Not Detect) M.pneumoniae DNA (PCR) (Not Detect) Parainfluenza 1 (PCR) (Not Detect) Parainfluenza 2 (PCR) (Not Detect) Parainfluenza 3 (PCR) (Not Detect) Parainfluenza 4 (PCR) (Not Detect) RSV (PCR) (Not Detect) Entero/Rhino (PCR) (Not Detect) - Impressions Impressions Abdomen/Pelvis CT 03/04/17 18:00 IMPRESSION: Study is moderately motion compromised. Support apparatus appears to be in adequate position. Moderate bilateral pleural effusions left greater than right and associated dependent consolidation likely related to atelectasis and underlying pulmonary edema noted. Superimposed pneumonia cannot be excluded. Overall no great change from the comparison noted with slight and improvement in decrease in size of left-sided pleural effusion. New subacute rib fractures are noted on the left. Evaluation of the abdomen and pelvis is also motion compromised. Findings compatible with cirrhosis noted. Very mild prominence of the wall thickness of the colon felt to be artifactual in nature. Mild degree of underlying colitis cannot be completely excluded but is felt to be less likely. There is 3rd spacing noted which may be related to underlying cardiac, renal or hepatic dysfunction. Incidental note of acute fracture of the right hip. D/ /04/2017 19:35:59 Noé Ball MD / allen Interpreting Provider: Noé Ball MD Pelvis CT 03/04/17 18:00 IMPRESSION: Right greater trochanteric fracture, without significant displacement. Again, the age of this is indeterminate, as there appears to be some periosteal reaction, suggesting a subacute timeframe. On the indication, there is concern for infection. Although infection is not excluded by CT (or for that matter MRI) there is only a very small amount of articular fluid, with no significant joint effusion, making that less likely. D/ / Jacques Long MD / Jacques Long MD Interpreting Provider: Jacques Long MD Chest X-Ray 03/08/17 07:10 IMPRESSION: Aeration is mildly improved from 03/01/2017. Persistent bibasilar airspace disease and small pleural effusions, larger on the left. D/ / Kemal Aquino MD / Kemal Aquino MD Interpreting Provider: Kemal Aquino MD Exam - Constitutional Vitals: Temp Pulse Resp BP Pulse Ox 98 F 83 22 82/51 94 03/08/17 08:09 03/08/17 10:00 03/08/17 10:00 03/08/17 10:00 03/08/17 10:00 Exam: intubated. opens eyes to voice. Dose not follow any commands at this time. Continues to be off sedation. - Head Head exam: Present: atraumatic, normal inspection, normocephalic - Eye Eye exam: Present: PERRL, sclera anicteric - ENT ENT exam: Present: mucous membranes moist Additional comments: ET and OG in place. - Neck Neck exam: Present: normal inspection. Absent: lymphadenopathy, thyromegaly Additional comments: trachea midline. - Respiratory Respiratory exam: Present: CTAB Additional comments: diminished at bases. - Cardiovascular Cardiovascular exam: Present: bradycardia (mild 50s), +S1, +S2. Absent: diastolic murmur, systolic murmur - GI/Abdominal GI/Abdominal exam: Present: normal bowel sounds. Absent: organomegaly, pulsatile mass Additional comments: obese - Extremities Exam Additional comments: No major change in previous exam. She still hase cyanosis of her toes. appears to be the beginning of skin break down on the dorsum of the left foot. She has bilateral lower extremity edema to the level of the knee. - Skin Additional comments: No new rashes or lesions noted. - Stroke Is the patient on any antithrombotics?: Yes Contraindication Antithromb by Day Two: Not Indicated - Due to Bleeding Disorder or Risk of Bleeding (Coagulapathy with elevated INR) - VTE Reasons for not Prescribing Prophylaxis: Not indicated-Anticoagulated or INR therapeutic - AMI Reason for No Aspirin at Discharge: Drug treatment not indicated Consult Discharge Plan - Plan Referrals: Henrry Mccullough MD [Primary Care Provider] - - Attending Attestation I examined this patient and my medical decision-making was reviewed with the Resident Physician. I agree with the documented findings, disposition and treatment plan as described except to the extent set forth below.
[2017-03-08] MEDS ORDERED: 0.9 % Sodium Chloride 250 ML IVC PRN (12:04)
[2017-03-08] MEDS ORDERED: *HR* Heparin 10,000 UNIT/10 ML VIAL IV PRN (12:04)
--- NOTE | 2017-03-08 12:37 | General Surgery Progress Note ---
Date of Encounter: 03/11/17 Time of Encounter: 12:10 Subjective Patient reports: other (status unchanged) Narrative: General surgery - continued follow up necrotic full-thickness sacral decubitus The patient remains intubated, on pressors. The patient opens her eyes to loud verbal stimulus but without obvious focus. With the assistance of nursing, the sacral wound/decubitus was evaluated. A full thickness necrotic sacral decubitus persists. A small portion of the epidermis is beginning to soften response to the Santyl. The wound remains mottled and necrotic and under different circumstances would benefit from surgical debridement. Lungs: mechanical breath sounds, no independent respirations Extremities: 6 of 10 toes remained mottled; the degree of skin area is increased as the toes are much darker than on my initial examination. Findings Consistent with dry gangrene. All 4 extremities are diffusely edematous; there is some transcutaneous serous weeping from the upper extremities. Impression: 71-year-old, severely compromised patient with full thickness necrotic sacral decubitus. Per my discussion with family this decubitus predates the patient's admission to this institution. Surgical debridement is not possible due to multiple comorbidities and the strong likelihood of the patient would not survive. Recommendations: Continue topical application of Santyl. I will follow along with you. Objective Vital Signs - Last 8 Hours Temp Pulse Resp BP Pulse Ox 03/08/17 11:45 25 94/50 99 03/08/17 11:44 98.4 F 03/08/17 11:00 85 25 98/48 99 03/08/17 10:00 83 22 82/51 94 03/08/17 09:10 22 86/42 948 03/08/17 09:00 89 23 92/44 95 03/08/17 08:09 98 F 03/08/17 08:00 78 21 97/50 99 03/08/17 07:37 18 99/47 100 03/08/17 07:30 77 03/08/17 07:00 78 23 92/48 96 03/08/17 06:15 24 95/48 98 03/08/17 06:00 74 25 98/48 97 03/08/17 05:00 79 25 101/50 98 03/08/17 04:50 98 F 03/08/17 04:35 25 101/50 98 Intake and Output 07/03/08/17 03/08/17 23:59 07:59 15:59 Intake Total 1521 / 1521 1165 / 1165 403 / 403 Output Total 1400 / 1400 700 / 700 200 / 200 Balance 121 / 121 465 / 465 203 / 203 Intake: IV Fluids 1318 / 1318 310 / 310 136 / 136 Heparin 25,000 UNIT/500 500 / 500 100 / 100 ML D5W 25,000 unit In 500 ml @ 14 UNIT/KG/HR 24. 332 mls/hr IVC .[id number] [facility] Rx#:[id number] Levophed 8 MG In Dextrose 58 / 58 10 / 10 36 / 36 5% 250 ML @ 5 MCG/MIN 9. 67 mls/hr IVC CONT PRN Rx #:[id number] Azactam 500 MG In 100 / 100 100 / 100 100 / 100 Dextrose 5% 100 ML @ 200 mls/hr IVPB Q8H [facility] Rx#: [id number] Magnesium Sulfate 2 GM In 110 / 110 Dextrose 5% 100 ML @ 50 mls/hr IVPB Q6H PRN Rx#: [id number] Potassium Chloride 10 mEq 300 / 300 100 / 100 /100mL 10 meq In 100 ml @ 100 mls/hr IVPB Q1H PRN Rx#:[id number] Vancocin 1,250 MG In 250 / 250 Dextrose 5% 250 ML @ 166. 67 mls/hr IVPB ONCE ONE Rx#:[id number] Tube Feeding 143 / 143 615 / 615 237 / 237 Free Water 60 / 60 180 / 180 Free Water Intake Amount 60 / 60 30 / 30 Output: Urine 0 / 0 Stool 0 / 0 Rectal Tube 1400 / 1400 700 / 700 200 / 200 Other: Weight 92.624 kg Blood Glucose* 208 232 172 Patient Weight 03/08/17 23:59 Weight 92.624 kg - Labs 03/10/17 03:35 03/10/17 03:35 Diabetes panel 03/07/17 03/08/17 Range/Units 20:30 04:18 Sodium 132 L (136-145) mEq/L Potassium 3.5 3.9 (3.5-4.5) mEq/L Chloride 99 (98-109) mEq/L Carbon Dioxide 23 (19-29) mEq/L BUN 35 H (7-20) mg/dL Creatinine 2.66 H (0.57-1.11) mg/dL Glucose 136 H (70-99) mg/dL Calcium 8.4 L (8.6-10.8) mg/dL AST 18 (5-34) Units/L ALT 14 (0-55) Units/L Alkaline Phosphatase 673 H (38-126) Units/L Albumin 1.6 L (3.5-5.0) g/dL Calcium panel 03/07/17 03/08/17 Range/Units 20:30 04:18 Calcium 8.4 L (8.6-10.8) mg/dL Phosphorus 4.4 D (2.3-4.7) mg/dL Albumin 1.6 L (3.5-5.0) g/dL Pituitary panel 03/07/17 03/08/17 Range/Units 20:30 04:18 Sodium 132 L (136-145) mEq/L Potassium 3.5 3.9 (3.5-4.5) mEq/L Chloride 99 (98-109) mEq/L Carbon Dioxide 23 (19-29) mEq/L BUN 35 H (7-20) mg/dL Creatinine 2.66 H (0.57-1.11) mg/dL Glucose 136 H (70-99) mg/dL Calcium 8.4 L (8.6-10.8) mg/dL Adrenal panel 03/07/17 03/08/17 Range/Units 20:30 04:18 Sodium 132 L (136-145) mEq/L Potassium 3.5 3.9 (3.5-4.5) mEq/L Chloride 99 (98-109) mEq/L Carbon Dioxide 23 (19-29) mEq/L BUN 35 H (7-20) mg/dL Creatinine 2.66 H (0.57-1.11) mg/dL Glucose 136 H (70-99) mg/dL Calcium 8.4 L (8.6-10.8) mg/dL Total Bilirubin 1.0 (0.2-1.2) mg/dL AST 18 (5-34) Units/L ALT 14 (0-55) Units/L Alkaline Phosphatase 673 H (38-126) Units/L Albumin 1.6 L (3.5-5.0) g/dL - Stroke Is the patient on any antithrombotics?: No Contraindication Antithromb by Day Two: Not Indicated - Due to Bleeding Disorder or Risk of Bleeding (Coagulapathy with elevated INR) - VTE Reasons for not Prescribing Prophylaxis: Not indicated-Anticoagulated or INR therapeutic - AMI Reason for No Aspirin at Discharge: Drug treatment not indicated Consult Discharge Plan - Plan Referrals: Henrry Mccullough MD [Primary Care Provider] -
[2017-03-08] MEDS: Dexmedetomidine HCl 400 MCG/100 ML MLS IVC SCH (15:29)
--- NOTE | 2017-03-08 15:56 | Event Note ---
Date of Encounter: 03/08/17 Time of Encounter: 14:00 Patient receiving dialysis. No family has been in today. Patient with eyes open and blinking, but does not track and does not follow any commands. IV antibiotics have been changed today. Will continue to follow clinical course and assist as needed.
[2017-03-08] MEDS ORDERED: Vancomycin 1,000 MG in D5% in Water 250 ML IVPB ONE (17:00)
[2017-03-08] MEDS ORDERED: *HR* LORazepam 2 MG/ML VIAL IVP PRN (17:56)
[2017-03-08] MEDS: Fluconazole 200 MG/100 ML 200 MG/100 ML BAG IVPB SCH (18:42)
[2017-03-08] MEDS: 0.9 % Sodium Chloride 1,000 ML PRIME SCH (20:59)
[2017-03-08] MEDS ORDERED: 0.9 % Sodium Chloride 1,000 ML ONE (22:14)
[2017-03-09] MEDS: Norepinephrine 8 MG in D5% in Water 250 ML IVC PRN ×2 (00:01→16:18)
[2017-03-09] MEDS: Insulin LISPRO 300 UNITS/3 ML VIAL SQ SCH ×7 (00:02→23:32)
[2017-03-09] MEDS: Lacri-Lube 3.5 GM TUBE BOTH EYES SCH ×7 (00:03→23:31)
[2017-03-09] MEDS: Aztreonam 500 MG in D5% in Water 100 ML IVPB SCH ×3 (02:12→18:19)
[2017-03-09 04:42] LABS: Basophils % 0.2 %; Hemoglobin 8.1 g/dL (11.5-15.4); Mean Corpuscular Hemoglobin 22.6 pg (28.0-33.3); Monocytes % 3.1 %; Nucleated Red Blood Cells 0.5 /100 WBC (0); Red Blood Count 3.58 M/mcL (3.82-4.97)
[2017-03-09 04:44] LABS: Basophils # 0.1 K/mcL (0.0-0.2); Hematocrit 27.2 % (35.3-44.9); Immature Granulocytes % 4.3 % (0-4); Immature Platelets 7.5 % (1.1-6.1); Lymphocytes # 0.6 K/mcL (0.6-4.6); Lymphocytes % 1.9 %; Mean Corpuscular HGB Conc 29.8 g/dL (31.6-35.5); Neutrophils # 28.4 K/mcL (1.6-8.9); Platelet Count 100 K/mcL (140-400); Red Cell Distribution Width 21.7 % (11.5-14.5); Segmented Neutrophils % 90.5 %
[2017-03-09 04:55] LABS: Albumin 1.6 g/dL (3.5-5.0); Albumin/Globulin Ratio 0.5 (1.1-2.2); Bilirubin,Total 1.2 mg/dL (0.2-1.2); Calcium 8.4 mg/dL (8.6-10.8); Globulin 3.2 g/dL (2.4-3.5); Potassium 3.3 mEq/L (3.5-4.5); Total Protein 4.8 g/dL (6.0-8.3)
[2017-03-09 05:16] LABS: Anisocytosis 2+ (Not Present); Microcytosis Present (Not Present)
[2017-03-09 05:17] LABS: Hypochromasia Present (Not Present); Platelet Estimate Decreased (Normal); Schistocytes 1+ (Not Present)
[2017-03-09 05:46] LABS: ABG Base Excess 1.5 mEq/L (-2.0 to 3.0); ABG HCO3 25.9 mEQ/L (21-27); ABG Oxygen Saturation 96 % (95-98); ABG PCO2 39 mmHg (35-45); ABG PH 7.43 pH Units (7.32-7.45); ABG PO2 79 mmHg (85-104); ABG TCO2 27.1 mEq/L (20-26); Blood Gas FiO2 30 %
[2017-03-09] MEDS: EPINEPHrine 1 MG in D5% in Water 250 ML IVC SCH (07:56)
[2017-03-09] MEDS: Vasopressin 40 UNIT in D5% in Water 100 ML IV SCH (07:57)
[2017-03-09] MEDS: Fluconazole 200 MG/100 ML 200 MG/100 ML BAG IVPB SCH (08:23)
[2017-03-09] MEDS: Pantoprazole 40 MG VIAL IVPB SCH (08:24)
[2017-03-09] MEDS: Lactulose Oral Soln 20 GM/30 ML UDC PO SCH ×3 (08:24→20:15)
[2017-03-09] MEDS: Chlorhexidine Rinse 15 ML MOUTHWASH MM SCH ×2 (08:24→20:15)
[2017-03-09] MEDS: Aspirin 81 MG TAB.CHEW PO SCH (08:24)
[2017-03-09] MEDS: Folic Acid 1 MG TABLET PO SCH (08:24)
--- NOTE | 2017-03-09 08:48 | Nephrology Progress Note ---
Date of Encounter: 03/09/17 Time of Encounter: 08:25 - Assessment and Plan (1) End-stage renal disease Current Visit: No Status: Acute Acute on chronic respiratory failure, encephalopathy, cirrhosis. No HD today. Subjective Principal diagnosis: Encephalopathy Interval history: Intubated, on one pressor. FIO2 30, peep 8. Objective - Vital Signs Vital signs: Vital Signs Temp Pulse Resp BP Pulse Ox 03/09/17 08:12 81 24 110/55 100 03/09/17 08:00 97.9 F 03/09/17 07:15 89 24 110/55 100 03/09/17 07:00 84 24 118/53 100 03/09/17 06:00 84 26 113/54 100 03/09/17 05:10 23 108/53 98 03/09/17 05:00 84 26 108/53 99 03/09/17 04:00 85 24 112/59 100 03/09/17 03:00 87 23 116/57 100 03/09/17 02:00 93 30 98/65 99 03/09/17 01:40 32 104/49 99 03/09/17 01:00 98 31 104/49 99 03/09/17 00:00 99.5 F 03/08/17 23:30 26 109/50 99 03/08/17 23:00 87 26 98/51 99 03/08/17 22:30 94 03/08/17 22:00 94 25 119/58 100 03/08/17 21:18 25 112/57 100 03/08/17 21:00 93 21 112/57 99 03/08/17 20:00 89 24 127/65 99 03/08/17 19:30 27 123/53 99 03/08/17 19:00 88 27 123/53 99 03/08/17 18:30 99.3 F 24 115/59 03/08/17 18:10 92/56 03/08/17 18:00 98 32 92/56 95 03/08/17 17:55 103/47 03/08/17 17:40 102/58 03/08/17 17:25 93/50 03/08/17 17:10 95/90 03/08/17 17:00 94 30 88/50 97 03/08/17 16:55 99/43 03/08/17 16:40 91/37 03/08/17 16:25 92/45 03/08/17 16:10 111/44 03/08/17 16:00 98.6 F 93 30 83/41 94 03/08/17 15:55 92/45 03/08/17 15:40 80/48 03/08/17 15:30 29 83/41 95 03/08/17 15:25 100/46 03/08/17 15:10 97.4 F L 28 99/48 03/08/17 15:00 84 28 106/50 100 03/08/17 14:00 85 25 101/47 100 03/08/17 13:30 27 86/47 99 03/08/17 13:00 89 27 92/50 98 03/08/17 12:00 91 27 96/50 98 03/08/17 11:45 25 94/50 99 03/08/17 11:44 98.4 F 03/08/17 11:00 85 25 98/48 99 03/08/17 10:00 83 22 82/51 94 03/08/17 09:10 22 86/42 948 03/08/17 09:00 89 23 92/44 95 Intake and Output 03/08/17 03/09/17 03/09/17 23:59 07:59 15:59 Intake Total 1025 / 1025 553 / 553 Output Total 1900 / 1900 1300 / 1300 Balance -875 / -875 -747 / -747 Intake: IV Fluids 434 / 434 Levophed 8 MG In Dextrose 234 / 234 5% 250 ML @ 5 MCG/MIN 9. 67 mls/hr IVC CONT PRN Rx #:[id number] Azactam 500 MG In 100 / 100 Dextrose 5% 100 ML @ 200 mls/hr IVPB Q8H CANDE Rx#: [id number] Diflucan Premix 200 MG/ 100 / 100 100 ML 200 mg In 100 ml @ 100 mls/hr IVPB DAILY [facility] Rx#:[id number] Oral 0 / 0 0 / 0 Tube Feeding 411 / 411 493 / 493 Free Water 60 / 60 Free Water Intake Amount 120 / 120 60 / 60 Output: Urine 0 / 0 0 / 0 Stool 300 / 300 1150 / 1150 Total Dialysis (HD) 1600 / 1600 Output Gastric Drainage 150 / 150 Other: Stool Consistency liquid liquid Stool Color Brown Brown Weight 91.665 kg Blood Glucose* 167 275 272 Hemodialysis Net Fluid 1000 Removed (mL) Patient Weight 03/09/17 23:59 Weight 91.665 kg - General Appearance General appearance: Present: well-developed, well-nourished, appears started age EENT: Present: mucous membranes moist Neck: Present: no JVD Respiratory: Present: rhonchi Cardiology: Present: edema, irregular rhythm Additional Comments: upper extremity Gastrointestinal: Present: hypoactive bowel sounds Integumentary: Present: warm and dry Additional Comments: mottled toes, planter for feet. Sacral decub - Lab 03/09/17 04:38 03/09/17 04:38 Most recent lab results ABG pH 7.43 pH Units (7.32-7.45) 03/09/17 05:30 ABG pCO2 39 mmHg (35-45) 03/09/17 05:30 ABG pO2 79 mmHg (85-104) L 03/09/17 05:30 ABG HCO3 25.9 mEQ/L (21-27) 03/09/17 05:30 ABG O2 Saturation 96 % (95-98) 03/09/17 05:30 Calcium 8.4 mg/dL (8.6-10.8) L 03/09/17 04:38 Phosphorus 4.4 mg/dL (2.3-4.7) D 03/07/17 20:30 Magnesium 1.8 mg/dL (1.6-2.6) 03/07/17 20:30 - Stroke Is the patient on any antithrombotics?: No Contraindication Antithromb by Day Two: Not Indicated - Due to Bleeding Disorder or Risk of Bleeding (Coagulapathy with elevated INR) - VTE Reasons for not Prescribing Prophylaxis: Not indicated-Anticoagulated or INR therapeutic - AMI Reason for No Aspirin at Discharge: Drug treatment not indicated Consult Discharge Plan - Plan Referrals: Henrry Mccullough MD [Primary Care Provider] -
--- NOTE | 2017-03-09 10:04 | Pulmonology Progress Note ---
Date of Encounter: 03/09/17 Time of Encounter: 10:02 Assessment and Plan (1) Acute encephalopathy Current Visit: Yes Status: Acute Labs, radiology, chart personally reviewed. All lines examined without evidence of infection. Management was reviewed during multidisciplinary critical care rounds. Neuropsych: Remains encephalopathic continue lactulose Pulm: Acute on chronic hypoxic hypercarbic respiratory failure with acceptable oxygenation ventilation on minimal ventilator support; she is currently not a candidate for a spontaneous breathing trial because of her neurologic status continue ventilator bundle to prevent VAP Cards: Distributive shock secondary to sepsis continue vasopressor wean to keep MAP >60; patient has a history of atrial fibrillation currently rate controlled FEN-GI: Continue enteral nutrition GI prophylaxis has been Renal: ESRD receiving intermittent hemodialysis labs stable replace electrolytes per protocol ID: Persistent leukocytosis with worsening shock of unclear source she says extended extensive evaluation and may represent infection of the lower extremities although currently not surgical candidate ID is following antimicrobials have been adjusted to vancomycin and aztreonam and fluconazole to cover for possible fungal etiology Heme/Onc: Thrombocytopenias modestly worse overnight and atelectasis a infestation of her critical illness and not suggestive of heparin-induced thrombocytopenia. Given risk for hemorrhage I would defer heparin infusion for primary stroke prevention with underlying atrial fibrillation for subcutaneous heparin for DVT prophylaxis; hemoglobin stable Endo: Her glucoses monitored continue sliding scale insulin as needed Integ/MSK: Skin care per routine ICU protocol is being administered she has a chronic sacral decubitus ulcer which has been dressed appropriately and been seen by surgery. She was evidence of distal toe necrosis evaluated by both vascular surgery and podiatry; this is likely secondary to vasopressor use and possible microembolic phenomenon CODE: DNR ACC; prognosis poor I have not seen any significant recovery in this patient over the last week I will recommend the family to transition to comfort measures in the next 24 hours given wishes of patient not to proceed to tracheostomy placement (2) Hospital acquired PNA Current Visit: No Status: Acute (3) Goals of care, counseling/discussion Current Visit: Yes Status: Acute (4) Chronic diastolic (congestive) heart failure Current Visit: No Status: Acute (5) DVT prophylaxis Current Visit: No Status: Acute (6) Cirrhosis Current Visit: No Status: Chronic Qualifiers: Hepatic cirrhosis type: unspecified hepatic cirrhosis Ascites presence: without ascites Qualified Code(s): K74.60 - Unspecified cirrhosis of liver (7) Atrial fibrillation Current Visit: Yes Status: Chronic Qualifiers: Atrial fibrillation type: chronic Qualified Code(s): I48.2 - Chronic atrial fibrillation (8) Acute respiratory failure with hypoxia and hypercapnia Current Visit: Yes Status: Acute (9) End-stage renal disease on hemodialysis Current Visit: No Status: Acute (10) Septic shock Current Visit: Yes Status: Acute (11) Toe necrosis Current Visit: Yes Status: Acute Subjective Principal diagnosis: Encephalopathy Interval history: Mental status appears about the same. She underwent dialysis yesterday and it has resulted in lowering of her blood pressure which has been a pattern seen over the last week as such her vasopressor requirements have increased now she is on 10ug of lephophed. Objective PUL Vital signs: Last Vital Signs Temp 97.9 F 03/09/17 08:00 Pulse 79 03/09/17 09:00 Resp 22 03/09/17 09:32 BP 111/57 03/09/17 09:32 Pulse Ox 100 03/09/17 09:32 General appearance: other (obtunded) Eyes: nonicteric ENT: other (Oral Endotracheal and enteric tube noted) Neck: supple Effort: mildly labored Auscultation: bilateral: diminished breath sounds (Left greater than right) Cardiovascular: irregular rhythm Gastrointestinal: normoactive bowel sounds, soft, non-distended Extremities: anasarca, other (Evidence of bilateral ischemia in the distal extremities pulses are dopplerable to the resolved pedis dorsalis pedis ) pupils equal and round, other (She is able to move her eyes slightly to her name otherwise she does not follow commands) Ventilator Settings Ventilator Settings: Ventilator Settings, Last 8 Hours Ventilator Mode VC+ Ventilator Mode VC+ Ventilator Mode VC+ Ventilator Mode VC+ Ventilator Mode VC+ Ventilator Mode VC+ Ventilator Mode VC+ Ventilator Mode VC+ Ventilator Mode VC+ Ventilator Mode VC+ Ventilator Mode VC+ Ventilator Tidal Volume 380 Setting Ventilator Tidal Volume 380 Setting Ventilator Tidal Volume 380 Setting Ventilator Tidal Volume 380 Setting Ventilator Tidal Volume 380 Setting Ventilator Tidal Volume 522 Setting Ventilator Tidal Volume 380 Setting Ventilator Tidal Volume 380 Setting Ventilator Tidal Volume 380 Setting Ventilator Tidal Volume 380 Setting Ventilator Tidal Volume 380 Setting Ventilator Respiratory Rate 18 Setting Ventilator Respiratory Rate 18 Setting Ventilator Respiratory Rate 18 Setting Ventilator Respiratory Rate 18 Setting Ventilator Respiratory Rate 18 Setting Ventilator Respiratory Rate 18 Setting Ventilator Respiratory Rate 18 Setting Ventilator Respiratory Rate 18 Setting Ventilator Respiratory Rate 18 Setting Ventilator Respiratory Rate 18 Setting Ventilator Respiratory Rate 18 Setting Actual Respiratory Rate 22 Actual Respiratory Rate 24 Actual Respiratory Rate 24 Actual Respiratory Rate 32 Actual Respiratory Rate 23 Actual Respiratory Rate 32 Actual Respiratory Rate 32 Actual Respiratory Rate 32 Positive End Expiratory 8 Pressure Positive End Expiratory 8 Pressure Positive End Expiratory 8 Pressure Positive End Expiratory 8 Pressure Positive End Expiratory 8 Pressure Positive End Expiratory 8 Pressure Positive End Expiratory 8 Pressure Positive End Expiratory 8 Pressure Positive End Expiratory 8 Pressure Positive End Expiratory 8 Pressure Positive End Expiratory 8 Pressure Peak Inspiratory Airway 19 Pressure Peak Inspiratory Airway 27 Pressure Peak Inspiratory Airway 29 Pressure Peak Inspiratory Airway 23 Pressure Peak Inspiratory Airway 27 Pressure Peak Inspiratory Airway 27 Pressure Peak Inspiratory Airway 27 Pressure Results - Laboratory Findings CBC and BMP: 03/09/17 04:38 03/09/17 04:38 ABG ABG pH 7.43 pH Units (7.32-7.45) 03/09/17 05:30 ABG pCO2 39 mmHg (35-45) 03/09/17 05:30 ABG pO2 79 mmHg (85-104) L 03/09/17 05:30 ABG O2 Saturation 96 % (95-98) 03/09/17 05:30 PT/INR, D-dimer PT 12.6 Seconds (9.4-12.1) H 03/06/17 03:10 D-Dimer 874 ng/mLFEU (0-500) H 03/03/17 04:18 Abnormal lab findings: Abnormal lab results WBC 31.4 K/mcL (4.3-11.1) H* 03/09/17 04:38 RBC 3.58 M/mcL (3.82-4.97) L 03/09/17 04:38 Hgb 8.1 g/dL (11.5-15.4) L 03/09/17 04:38 Hct 27.2 % (35.3-44.9) L 03/09/17 04:38 MCV 76.0 fL (83.0-100.0) L 03/09/17 04:38 MCH 22.6 pg (28.0-33.3) L 03/09/17 04:38 MCHC 29.8 g/dL (31.6-35.5) L 03/09/17 04:38 RDW 21.7 % (11.5-14.5) H 03/09/17 04:38 Plt Count 100 K/mcL (140-400) L 03/09/17 04:38 Immature Gran % 4.3 % (0-4) H 03/09/17 04:38 Band Neutrophils % 28.0 % (0-4) H 03/04/17 04:54 Myelocytes % 2.0 % (0) H 03/08/17 04:18 Neutrophils # 28.4 K/mcL (1.6-8.9) H 03/09/17 04:38 Nucleated RBCs/100 WBC 0.5 /100 WBC (0) H 03/09/17 04:38 Toxic Granulation Present (Not Present) A 03/03/17 03:15 Platelet Estimate Decreased (Normal) L 03/09/17 04:38 Immature Plt Fraction 7.5 % (1.1-6.1) H 03/09/17 04:38 Polychromasia 1+ (Not Present) A 03/02/17 08:10 Hypochromasia Present (Not Present) A 03/09/17 04:38 Poikilocytosis 1+ (Not Present) A 03/06/17 03:10 Basophilic Stippling 1+ (Not Present) A 02/25/17 07:11 Anisocytosis 2+ (Not Present) A 03/09/17 04:38 Microcytosis Present (Not Present) A 03/09/17 04:38 Macrocytosis Present (Not Present) A 03/05/17 03:50 Target Cells 1+ (Not Present) A 03/07/17 03:15 [place] Cells 1+ (Not Present) A 03/06/17 03:10 Acanthocytes (Spur) 1+ (Not Present) A 03/05/17 03:50 Schistocytes 1+ (Not Present) A 03/09/17 04:38 PT 12.6 Seconds (9.4-12.1) H 03/06/17 03:10 APTT 58.4 Seconds (26.0-36.0) H 03/08/17 04:18 Fibrinogen 482 mg/dL (169-393) H 03/03/17 04:18 D-Dimer 874 ng/mLFEU (0-500) H 03/03/17 04:18 Heparin Anti-Xa, Unfract 0.01 IU/mL (0.30-0.70) L 03/01/17 04:10 ABG pO2 79 mmHg (85-104) L 03/09/17 05:30 ABG Total CO2 27.1 mEq/L (20-26) H 03/09/17 05:30 VBG pH 7.08 pH Units (7.32-7.42) L* 02/25/17 05:40 VBG pCO2 92 mmHg (41-51) H 02/25/17 05:40 VBG pO2 67 mmHg (25-40) H 02/25/17 05:40 VBG HCO3 27.3 mEq/L (21-27) H 02/25/17 05:40 Sodium 134 mEq/L (136-145) L 03/09/17 04:38 Potassium 3.3 mEq/L (3.5-4.5) L 03/09/17 04:38 BUN 34 mg/dL (7-20) H 03/09/17 04:38 Creatinine 2.27 mg/dL (0.57-1.11) H 03/09/17 04:38 Est GFR ( Amer) 26 (> 60) L 03/09/17 04:38 Est GFR (Non-Af Amer) 21 (> 60) L 03/09/17 04:38 Glucose 285 mg/dL (70-99) H 03/09/17 04:38 POC Glucose 313 (58-89) H 03/09/17 00:01 Calcium 8.4 mg/dL (8.6-10.8) L 03/09/17 04:38 Direct Bilirubin 0.8 mg/dL (0.0-0.5) H 03/07/17 03:15 Alkaline Phosphatase 850 Units/L (38-126) H 03/09/17 04:38 B-Natriuretic Peptide 2203 pg/mL (0-100) H 02/25/17 07:11 Serum Total Protein 4.8 g/dL (6.0-8.3) L 03/09/17 04:38 Albumin 1.6 g/dL (3.5-5.0) L 03/09/17 04:38 Albumin/Globulin Ratio 0.5 (1.1-2.2) L 03/09/17 04:38 Amylase 16 Units/L (25-125) L 03/04/17 15:00 Ur Specimen Adequacy See below A 02/25/17 06:28 Urine Clarity Turbid (Clear) A 02/25/17 06:28 Urine Protein >=300 mg/dL (Neg-Trace) H 02/25/17 06:28 Urine Ketones Trace mg/dL (Negative) H 02/25/17 06:28 Urine Blood Large (Negative) H 02/25/17 06:28 Ur Leukocyte Esterase Large (Negative) H 02/25/17 06:28 Ur Culture Indicated? YES (NO) A 02/25/17 06:28 Pleural Appearance Hazy (Clear) A 02/26/17 15:30 Pleural RBC 0.020 M/mcL (0.000-0.002) H 02/26/17 15:30 - Microbiology Findings Microbiology Findings: Microbiology, Last 48 Hours 03/04/17 15:47 Urine Culture - Preliminary Urine,Catheterized Gram Positive Cocci Yeast Species 03/05/17 11:40 Sputum Culture - Final Sputum Methicillin Resistant S.aureus - Clinical Findings Intake & Output: Intake & Output 03/08/17 03/09/17 03/09/17 23:59 07:59 15:59 Intake Total 1025 / 1025 653 / 653 Output Total 1900 / 1900 1300 / 1300 Balance -875 / -875 -647 / -647 Weight 91.665 kg - Stroke Is the patient on any antithrombotics?: No Are there any contradictions to antithrombotics?: No Contraindication Antithromb by Day Two: Not Indicated - Due to Bleeding Disorder or Risk of Bleeding (Coagulapathy with elevated INR) - VTE Reasons for not Prescribing Prophylaxis: Not indicated-Anticoagulated or INR therapeutic (she has been prescribed DVT prophylaxis) - AMI Reason for No Aspirin at Discharge: Drug treatment not indicated Consult Discharge Plan - Plan Referrals: Henrry Mccullough MD [Primary Care Provider] -
[2017-03-09] MEDS: *HR* Heparin 5,000 UNIT/ML VIAL SQ SCH ×2 (12:58→23:32)
--- NOTE | 2017-03-09 14:10 | Event Note ---
Date of Encounter: 03/09/17 Time of Encounter: 13:[address] Rojas. He conducted meeting with family and explained patient not making meaningful progress and continues to have hypotension from dialysis and requiring vasopressor support. Daughter Radha to discuss POC with family tonight and decide goals of care. Will follow-up tomorrow and assist as needed.
[2017-03-09] MEDS: FentaNYL (PF) 1,000 MCG in 0.9 % Sodium Chloride 80 ML IVC SCH (15:40)
[2017-03-09] MEDS: Dexmedetomidine HCl 400 MCG/100 ML MLS IVC SCH (15:44)
[2017-03-09] MEDS: Insulin DETEMIR 100 UNIT/ML X5UNITS SQ SCH ×2 (16:17→23:31)
[2017-03-10] MEDS: Aztreonam 500 MG in D5% in Water 100 ML IVPB SCH ×2 (02:52→11:11)
[2017-03-10 04:00] LABS: Eosinophils % 0.4 %
[2017-03-10 04:01] LABS: Basophils % 0.1 %; Eosinophils # 0.1 K/mcL (0.0-0.6); Hematocrit 26.6 % (35.3-44.9); Hemoglobin 7.7 g/dL (11.5-15.4); Lymphocytes % 3.2 %; Mean Corpuscular HGB Conc 28.9 g/dL (31.6-35.5); Mean Corpuscular Hemoglobin 22.1 pg (28.0-33.3); Mean Corpuscular Volume 76.2 fL (83.0-100.0); Mean Platelet Volume 9.8 fL (9.4-12.4); Monocytes # 1.2 K/mcL (0.0-1.3); Monocytes % 3.8 %; Nucleated Red Blood Cells 0.6 /100 WBC (0); Red Blood Count 3.49 M/mcL (3.82-4.97); Red Cell Distribution Width 21.8 % (11.5-14.5); Segmented Neutrophils % 88.5 %
[2017-03-10 04:04] LABS: Neutrophils # 27.2 K/mcL (1.6-8.9); Platelet Count 91 K/mcL (140-400)
[2017-03-10 04:05] LABS: INR 1.3; Prothrombin Time 13.6 Seconds (9.4-12.1)
[2017-03-10 04:13] LABS: Albumin/Globulin Ratio 0.5 (1.1-2.2); Bilirubin,Total 0.9 mg/dL (0.2-1.2); Calcium 8.5 mg/dL (8.6-10.8); Globulin 3.3 g/dL (2.4-3.5); Total Protein 4.9 g/dL (6.0-8.3)
[2017-03-10 04:14] LABS: Albumin 1.6 g/dL (3.5-5.0)
[2017-03-10 04:24] LABS: Anisocytosis 2+ (Not Present); Hypochromasia Present (Not Present); Platelet Estimate Decreased (Normal)
[2017-03-10 04:25] LABS: Poikilocytosis 1+ (Not Present); Target Cells 1+ (Not Present)
[2017-03-10] MEDS: Insulin LISPRO 300 UNITS/3 ML VIAL SQ SCH ×2 (05:12→08:21)
[2017-03-10] MEDS: Lacri-Lube 3.5 GM TUBE BOTH EYES SCH ×2 (05:13→07:47)
[2017-03-10] MEDS: *HR* Heparin 5,000 UNIT/ML VIAL SQ SCH (05:19)
[2017-03-10] MEDS: Pantoprazole 40 MG VIAL IVPB SCH (07:45)
[2017-03-10] MEDS: Fluconazole 200 MG/100 ML 200 MG/100 ML BAG IVPB SCH (07:45)
[2017-03-10] MEDS: Lactulose Oral Soln 20 GM/30 ML UDC PO SCH (07:45)
[2017-03-10] MEDS: Chlorhexidine Rinse 15 ML MOUTHWASH MM SCH (07:45)
--- NOTE | 2017-03-10 07:45 | Pulmonology Progress Note ---
<Lurdes Meyer - Last Filed: 03/10/17 10:07> Date of Encounter: 03/10/17 Time of Encounter: 07:45 Assessment and Plan (1) Acute and chronic respiratory failure Current Visit: Yes Status: Acute Patient intubated on the ventilator. Sedation is turned off. Patient is more responsive today however still remains in grave condition. She will open her eyes to verbal stimuli. She will move her hands and feet to verbal stimuli. She will also shake her head yes or no to answer simple questions. She does withdraw from pain. Patient does have cyanosis to several toes on her feet bilaterally. Likely secondary to vasopressor use. Patient is still requiring vasopressor support. We are attempting to wean again today. However patient has not tolerated this well thus far. ABIs as well as arterial Doppler of lower extremities were normal. Patient's white count and alkaline phosphatase continue to rise. She is still on antibiotics. Plan: Surgery on board for wound care of her decubitus ulcer. levofed as needed for map greater than 60. Will wean as tolerated. Vascular and podiatry consults due to cyanotic toes. Lactulose for encephalopathy Continue antibiotics per ID recommendation. Unknown source of sepsis. Does have positive MRSA sputum. Protonix for GI prophylaxis Continue to trend hemoglobin. No evidence of bleeding. Platelets were also low. We are continuing to hold the heparin. EPCDs for DVT prophylaxis. Enteral nutrition Continue hemodialysis Sliding-scale insulin Qualifiers: Respiratory failure complication: hypercapnia Qualified Code(s): J96.22 - Acute and chronic respiratory failure with hypercapnia (2) Septic shock Current Visit: Yes Status: Acute (3) Acute encephalopathy Current Visit: Yes Status: Acute (4) Cirrhosis Current Visit: Yes Status: Chronic Qualifiers: Hepatic cirrhosis type: other cirrhosis Qualified Code(s): K74.69 - Other cirrhosis of liver (5) DM (diabetes mellitus), type 2 Current Visit: Yes Status: Chronic (6) Atrial fibrillation Current Visit: Yes Status: Chronic Qualifiers: Atrial fibrillation type: chronic Qualified Code(s): I48.2 - Chronic atrial fibrillation (7) Pressure ulcer Current Visit: Yes Status: Chronic Subjective Principal diagnosis: Encephalopathy Interval history: No events over night. Patient still on vasopressors. We will attempt to wean this. Patient is stooling with lactulose assistance. Patient's is off sedation. Still only minimally responsive. Today she is opening her eyes and moving her hands and feet. She is able to shake her head yes or no to answer questions. Her pupils are reactive. Vascular and podiatry were contacted to discuss patient's cyanotic toes bilaterally. Her ELAYNE was normal as was her arterial Doppler. This is likely secondary to vasopressors. Patient's white count and alkaline phosphatase continue to be up today. Her platelets continue to decline. We will continue the aztreonam and have added vancomycin. There is still no signs of bleeding. Patient remains encephalopathic. Objective PUL Vital signs: Last Vital Signs Temp 98 F 03/10/17 04:52 Pulse 81 03/10/17 06:00 Resp 22 03/10/17 06:00 BP 110/53 03/10/17 06:00 Pulse Ox 96 03/10/17 06:00 General appearance: other (Opening her eyes to verbal stimuli. Is able to move her hands and feet. Answers questions with moving her head up and down or left to right.) Eyes: nonicteric ENT: oropharynx moist Neck: supple Effort: normal Auscultation: bilateral: rhonchi Cardiovascular: regular rate and rhythm Gastrointestinal: absent bowel sounds, soft, non-tender, non-distended Integumentary: other (Several ischemic toes bilaterally. Decubitus ulcer to buttocks.) Extremities: edema (To lower extremities bilaterally. Also to upper extremities bilaterally. Pitting.) Musculoskeletal: no deformities Ventilator Settings Ventilator Settings: Ventilator Settings, Last 8 Hours Ventilator Mode VC+ Ventilator Mode VC+ Ventilator Mode VC+ Ventilator Mode VC+ Ventilator Mode VC+ Ventilator Mode VC+ Ventilator Mode VC+ Ventilator Mode VC+ Ventilator Mode VC+ Ventilator Mode VC+ Ventilator Tidal Volume 380 Setting Ventilator Tidal Volume 380 Setting Ventilator Tidal Volume 380 Setting Ventilator Tidal Volume 380 Setting Ventilator Tidal Volume 380 Setting Ventilator Tidal Volume 380 Setting Ventilator Tidal Volume 380 Setting Ventilator Tidal Volume 380 Setting Ventilator Tidal Volume 380 Setting Ventilator Tidal Volume 380 Setting Ventilator Respiratory Rate 18 Setting Ventilator Respiratory Rate 18 Setting Ventilator Respiratory Rate 18 Setting Ventilator Respiratory Rate 18 Setting Ventilator Respiratory Rate 18 Setting Ventilator Respiratory Rate 18 Setting Ventilator Respiratory Rate 18 Setting Ventilator Respiratory Rate 18 Setting Ventilator Respiratory Rate 18 Setting Ventilator Respiratory Rate 18 Setting Actual Respiratory Rate 24 Actual Respiratory Rate 24 Actual Respiratory Rate 21 Actual Respiratory Rate 21 Actual Respiratory Rate 21 Actual Respiratory Rate 28 Actual Respiratory Rate 28 Actual Respiratory Rate 28 Actual Respiratory Rate 28 Actual Respiratory Rate 22 Positive End Expiratory 8 Pressure Positive End Expiratory 8 Pressure Positive End Expiratory 8 Pressure Positive End Expiratory 8 Pressure Positive End Expiratory 8 Pressure Positive End Expiratory 8 Pressure Positive End Expiratory 8 Pressure Positive End Expiratory 8 Pressure Positive End Expiratory 8 Pressure Positive End Expiratory 8 Pressure Peak Inspiratory Airway 35 Pressure Peak Inspiratory Airway 35 Pressure Peak Inspiratory Airway 30 Pressure Peak Inspiratory Airway 30 Pressure Peak Inspiratory Airway 30 Pressure Peak Inspiratory Airway 27 Pressure Peak Inspiratory Airway 27 Pressure Peak Inspiratory Airway 27 Pressure Peak Inspiratory Airway 27 Pressure Peak Inspiratory Airway 26 Pressure Results - Laboratory Findings CBC and BMP: 03/10/17 03:35 03/10/17 03:35 ABG ABG pH 7.43 pH Units (7.32-7.45) 03/09/17 05:30 ABG pCO2 39 mmHg (35-45) 03/09/17 05:30 ABG pO2 79 mmHg (85-104) L 03/09/17 05:30 ABG O2 Saturation 96 % (95-98) 03/09/17 05:30 PT/INR, D-dimer PT 13.6 Seconds (9.4-12.1) H 03/10/17 03:35 D-Dimer 874 ng/mLFEU (0-500) H 03/03/17 04:18 Abnormal lab findings: Abnormal lab results WBC 30.7 K/mcL (4.3-11.1) H* 03/10/17 03:35 RBC 3.49 M/mcL (3.82-4.97) L 03/10/17 03:35 Hgb 7.7 g/dL (11.5-15.4) L 03/10/17 03:35 Hct 26.6 % (35.3-44.9) L 03/10/17 03:35 MCV 76.2 fL (83.0-100.0) L 03/10/17 03:35 MCH 22.1 pg (28.0-33.3) L 03/10/17 03:35 MCHC 28.9 g/dL (31.6-35.5) L 03/10/17 03:35 RDW 21.8 % (11.5-14.5) H 03/10/17 03:35 Plt Count 91 K/mcL (140-400) L 03/10/17 03:35 Band Neutrophils % 28.0 % (0-4) H 03/04/17 04:54 Myelocytes % 2.0 % (0) H 03/08/17 04:18 Neutrophils # 27.2 K/mcL (1.6-8.9) H 03/10/17 03:35 Nucleated RBCs/100 WBC 0.6 /100 WBC (0) H 03/10/17 03:35 Toxic Granulation Present (Not Present) A 03/03/17 03:15 Platelet Estimate Decreased (Normal) L 03/10/17 03:35 Immature Plt Fraction 7.5 % (1.1-6.1) H 03/09/17 04:38 Polychromasia 1+ (Not Present) A 03/02/17 08:10 Hypochromasia Present (Not Present) A 03/10/17 03:35 Poikilocytosis 1+ (Not Present) A 03/10/17 03:35 Basophilic Stippling 1+ (Not Present) A 02/25/17 07:11 Anisocytosis 2+ (Not Present) A 03/10/17 03:35 Microcytosis Present (Not Present) A 03/09/17 04:38 Macrocytosis Present (Not Present) A 03/05/17 03:50 Target Cells 1+ (Not Present) A 03/10/17 03:35 Hiren Cells 1+ (Not Present) A 03/06/17 03:10 Acanthocytes (Spur) 1+ (Not Present) A 03/05/17 03:50 Schistocytes 1+ (Not Present) A 03/09/17 04:38 PT 13.6 Seconds (9.4-12.1) H 03/10/17 03:35 APTT 58.4 Seconds (26.0-36.0) H 03/08/17 04:18 Fibrinogen 482 mg/dL (169-393) H 03/03/17 04:18 D-Dimer 874 ng/mLFEU (0-500) H 03/03/17 04:18 Heparin Anti-Xa, Unfract 0.01 IU/mL (0.30-0.70) L 03/01/17 04:10 ABG pO2 79 mmHg (85-104) L 03/09/17 05:30 ABG Total CO2 27.1 mEq/L (20-26) H 03/09/17 05:30 VBG pH 7.08 pH Units (7.32-7.42) L* 02/25/17 05:40 VBG pCO2 92 mmHg (41-51) H 02/25/17 05:40 VBG pO2 67 mmHg (25-40) H 02/25/17 05:40 VBG HCO3 27.3 mEq/L (21-27) H 02/25/17 05:40 Sodium 134 mEq/L (136-145) L 03/10/17 03:35 Potassium 3.0 mEq/L (3.5-4.5) L 03/10/17 03:35 BUN 45 mg/dL (7-20) H D 03/10/17 03:35 Creatinine 2.53 mg/dL (0.57-1.11) H 03/10/17 03:35 Est GFR ( Amer) 23 (> 60) L 03/10/17 03:35 Est GFR (Non-Af Amer) 19 (> 60) L 03/10/17 03:35 Glucose 116 mg/dL (70-99) H 03/10/17 03:35 POC Glucose 91 (58-89) H 03/09/17 23:10 Calcium 8.5 mg/dL (8.6-10.8) L 03/10/17 03:35 Direct Bilirubin 0.8 mg/dL (0.0-0.5) H 03/07/17 03:15 Alkaline Phosphatase 809 Units/L (38-126) H 03/10/17 03:35 B-Natriuretic Peptide 2203 pg/mL (0-100) H 02/25/17 07:11 Serum Total Protein 4.9 g/dL (6.0-8.3) L 03/10/17 03:35 Albumin 1.6 g/dL (3.5-5.0) L 03/10/17 03:35 Albumin/Globulin Ratio 0.5 (1.1-2.2) L 03/10/17 03:35 Amylase 16 Units/L (25-125) L 03/04/17 15:00 Ur Specimen Adequacy See below A 02/25/17 06:28 Urine Clarity Turbid (Clear) A 02/25/17 06:28 Urine Protein >=300 mg/dL (Neg-Trace) H 02/25/17 06:28 Urine Ketones Trace mg/dL (Negative) H 02/25/17 06:28 Urine Blood Large (Negative) H 02/25/17 06:28 Ur Leukocyte Esterase Large (Negative) H 02/25/17 06:28 Ur Culture Indicated? YES (NO) A 02/25/17 06:28 Pleural Appearance Hazy (Clear) A 02/26/17 15:30 Pleural RBC 0.020 M/mcL (0.000-0.002) H 02/26/17 15:30 - Microbiology Findings Microbiology Findings: Microbiology, Last 48 Hours 03/04/17 15:00 Blood Culture - Final Central Venous Catheter No growth. 03/04/17 15:00 Blood Culture - Final Central Venous Catheter No growth. 03/04/17 19:50 Blood Culture - Final Peripheral Venipuncture No growth. 03/04/17 15:47 Urine Culture - Preliminary Urine,Catheterized Gram Positive Cocci Yeast Species - Clinical Findings Intake & Output: Intake & Output 03/09/17 03/09/17 03/10/17 15:59 23:59 07:59 Intake Total 353 / 353 987 / 987 475 / 475 Output Total 0 / 0 1850 / 1850 300 / 300 Balance 353 / 353 -863 / -863 175 / 175 Weight 92.533 kg - Stroke Is the patient on any antithrombotics?: No Are there any contradictions to antithrombotics?: Yes Contraindication Antithromb by Day Two: Not Indicated - Due to Bleeding Disorder or Risk of Bleeding (Coagulapathy with elevated INR) - VTE Reasons for not Prescribing Prophylaxis: Not indicated-Anticoagulated or INR therapeutic (she has been prescribed DVT prophylaxis) - AMI Reason for No Aspirin at Discharge: Drug treatment not indicated Consult Discharge Plan - Plan Referrals: Henrry Mccullough MD [Primary Care Provider] - <Chadwick Rjoas - Last Filed: 03/10/17 11:37> Date of Encounter: 03/10/17 Assessment and Plan (1) Acute encephalopathy Current Visit: Yes Status: Acute (2) Hospital acquired PNA Current Visit: No Status: Acute (3) Goals of care, counseling/discussion Current Visit: Yes Status: Acute (4) Chronic diastolic (congestive) heart failure Current Visit: No Status: Acute (5) DVT prophylaxis Current Visit: No Status: Acute (6) Cirrhosis Current Visit: No Status: Chronic Qualifiers: Hepatic cirrhosis type: unspecified hepatic cirrhosis Ascites presence: without ascites Qualified Code(s): K74.60 - Unspecified cirrhosis of liver (7) Atrial fibrillation Current Visit: Yes Status: Chronic Qualifiers: Atrial fibrillation type: chronic Qualified Code(s): I48.2 - Chronic atrial fibrillation (8) Acute respiratory failure with hypoxia and hypercapnia Current Visit: Yes Status: Acute (9) End-stage renal disease on hemodialysis Current Visit: No Status: Acute (10) Septic shock Current Visit: Yes Status: Acute (11) Toe necrosis Current Visit: Yes Status: Acute Objective PUL Vital signs: Last Vital Signs Temp 98.1 F 03/10/17 07:59 Pulse 82 03/10/17 10:00 Resp 20 03/10/17 09:00 BP 90/70 03/10/17 10:00 Pulse Ox 97 03/10/17 10:00 Ventilator Settings Ventilator Settings: Ventilator Settings, Last 8 Hours Ventilator Mode VC+ Ventilator Mode VC+ Ventilator Mode VC+ Ventilator Mode VC+ Ventilator Mode VC+ Ventilator Mode VC+ Ventilator Mode VC+ Ventilator Tidal Volume 380 Setting Ventilator Tidal Volume 380 Setting Ventilator Tidal Volume 380 Setting Ventilator Tidal Volume 380 Setting Ventilator Tidal Volume 380 Setting Ventilator Tidal Volume 380 Setting Ventilator Tidal Volume 380 Setting Ventilator Respiratory Rate 18 Setting Ventilator Respiratory Rate 18 Setting Ventilator Respiratory Rate 18 Setting Ventilator Respiratory Rate 18 Setting Ventilator Respiratory Rate 18 Setting Ventilator Respiratory Rate 18 Setting Ventilator Respiratory Rate 18 Setting Actual Respiratory Rate 21 Actual Respiratory Rate 21 Actual Respiratory Rate 24 Actual Respiratory Rate 24 Actual Respiratory Rate 21 Actual Respiratory Rate 21 Actual Respiratory Rate 21 Positive End Expiratory 8 Pressure Positive End Expiratory 8 Pressure Positive End Expiratory 8 Pressure Positive End Expiratory 8 Pressure Positive End Expiratory 8 Pressure Positive End Expiratory 8 Pressure Positive End Expiratory 8 Pressure Positive End Expiratory 8 Pressure Peak Inspiratory Airway 35 Pressure Peak Inspiratory Airway 24 Pressure Peak Inspiratory Airway 35 Pressure Peak Inspiratory Airway 35 Pressure Peak Inspiratory Airway 30 Pressure Peak Inspiratory Airway 30 Pressure Peak Inspiratory Airway 30 Pressure Results - Laboratory Findings CBC and BMP: 03/10/17 03:35 03/10/17 03:35 ABG ABG pH 7.43 pH Units (7.32-7.45) 03/09/17 05:30 ABG pCO2 39 mmHg (35-45) 03/09/17 05:30 ABG pO2 79 mmHg (85-104) L 03/09/17 05:30 ABG O2 Saturation 96 % (95-98) 03/09/17 05:30 PT/INR, D-dimer PT 13.6 Seconds (9.4-12.1) H 03/10/17 03:35 D-Dimer 874 ng/mLFEU (0-500) H 03/03/17 04:18 Abnormal lab findings: Abnormal lab results WBC 30.7 K/mcL (4.3-11.1) H* 03/10/17 03:35 RBC 3.49 M/mcL (3.82-4.97) L 03/10/17 03:35 Hgb 7.7 g/dL (11.5-15.4) L 03/10/17 03:35 Hct 26.6 % (35.3-44.9) L 03/10/17 03:35 MCV 76.2 fL (83.0-100.0) L 03/10/17 03:35 MCH 22.1 pg (28.0-33.3) L 03/10/17 03:35 MCHC 28.9 g/dL (31.6-35.5) L 03/10/17 03:35 RDW 21.8 % (11.5-14.5) H 03/10/17 03:35 Plt Count 91 K/mcL (140-400) L 03/10/17 03:35 Band Neutrophils % 28.0 % (0-4) H 03/04/17 04:54 Myelocytes % 2.0 % (0) H 03/08/17 04:18 Neutrophils # 27.2 K/mcL (1.6-8.9) H 03/10/17 03:35 Nucleated RBCs/100 WBC 0.6 /100 WBC (0) H 03/10/17 03:35 Toxic Granulation Present (Not Present) A 03/03/17 03:15 Platelet Estimate Decreased (Normal) L 03/10/17 03:35 Immature Plt Fraction 7.5 % (1.1-6.1) H 03/09/17 04:38 Polychromasia 1+ (Not Present) A 03/02/17 08:10 Hypochromasia Present (Not Present) A 03/10/17 03:35 Poikilocytosis 1+ (Not Present) A 03/10/17 03:35 Basophilic Stippling 1+ (Not Present) A 02/25/17 07:11 Anisocytosis 2+ (Not Present) A 03/10/17 03:35 Microcytosis Present (Not Present) A 03/09/17 04:38 Macrocytosis Present (Not Present) A 03/05/17 03:50 Target Cells 1+ (Not Present) A 03/10/17 03:35 [place] Cells 1+ (Not Present) A 03/06/17 03:10 Acanthocytes (Spur) 1+ (Not Present) A 03/05/17 03:50 Schistocytes 1+ (Not Present) A 03/09/17 04:38 PT 13.6 Seconds (9.4-12.1) H 03/10/17 03:35 APTT 58.4 Seconds (26.0-36.0) H 03/08/17 04:18 Fibrinogen 482 mg/dL (169-393) H 03/03/17 04:18 D-Dimer 874 ng/mLFEU (0-500) H 03/03/17 04:18 Heparin Anti-Xa, Unfract 0.01 IU/mL (0.30-0.70) L 03/01/17 04:10 ABG pO2 79 mmHg (85-104) L 03/09/17 05:30 ABG Total CO2 27.1 mEq/L (20-26) H 03/09/17 05:30 VBG pH 7.08 pH Units (7.32-7.42) L* 02/25/17 05:40 VBG pCO2 92 mmHg (41-51) H 02/25/17 05:40 VBG pO2 67 mmHg (25-40) H 02/25/17 05:40 VBG HCO3 27.3 mEq/L (21-27) H 02/25/17 05:40 Sodium 134 mEq/L (136-145) L 03/10/17 03:35 Potassium 3.0 mEq/L (3.5-4.5) L 03/10/17 03:35 BUN 45 mg/dL (7-20) H D 03/10/17 03:35 Creatinine 2.53 mg/dL (0.57-1.11) H 03/10/17 03:35 Est GFR ( Amer) 23 (> 60) L 03/10/17 03:35 Est GFR (Non-Af Amer) 19 (> 60) L 03/10/17 03:35 Glucose 116 mg/dL (70-99) H 03/10/17 03:35 POC Glucose 91 (58-89) H 03/09/17 23:10 Calcium 8.5 mg/dL (8.6-10.8) L 03/10/17 03:35 Direct Bilirubin 0.8 mg/dL (0.0-0.5) H 03/07/17 03:15 Alkaline Phosphatase 809 Units/L (38-126) H 03/10/17 03:35 B-Natriuretic Peptide 2203 pg/mL (0-100) H 02/25/17 07:11 Serum Total Protein 4.9 g/dL (6.0-8.3) L 03/10/17 03:35 Albumin 1.6 g/dL (3.5-5.0) L 03/10/17 03:35 Albumin/Globulin Ratio 0.5 (1.1-2.2) L 03/10/17 03:35 Amylase 16 Units/L (25-125) L 03/04/17 15:00 Ur Specimen Adequacy See below A 02/25/17 06:28 Urine Clarity Turbid (Clear) A 02/25/17 06:28 Urine Protein >=300 mg/dL (Neg-Trace) H 02/25/17 06:28 Urine Ketones Trace mg/dL (Negative) H 02/25/17 06:28 Urine Blood Large (Negative) H 02/25/17 06:28 Ur Leukocyte Esterase Large (Negative) H 02/25/17 06:28 Ur Culture Indicated? YES (NO) A 02/25/17 06:28 Pleural Appearance Hazy (Clear) A 02/26/17 15:30 Pleural RBC 0.020 M/mcL (0.000-0.002) H 02/26/17 15:30 - Microbiology Findings Microbiology Findings: Microbiology, Last 48 Hours 02/26/17 12:41 Blood Culture - Preliminary Port System Propionibacterium acnes 03/04/17 15:00 Blood Culture - Final Central Venous Catheter No growth. 03/04/17 15:00 Blood Culture - Final Central Venous Catheter No growth. 03/04/17 19:50 Blood Culture - Final Peripheral Venipuncture No growth. 03/04/17 15:47 Urine Culture - Preliminary Urine,Catheterized Gram Positive Cocci Yeast Species - Clinical Findings Intake & Output: Intake & Output 03/09/17 03/10/17 03/10/17 23:59 07:59 15:59 Intake Total 987 / 987 575 / 575 1250 / 1250 Output Total 1850 / 1850 300 / 300 Balance -863 / -863 275 / 275 1250 / 1250 Weight 92.533 kg - Attending Attestation I examined this patient and my medical decision-making was reviewed with the Resident Physician. I agree with the documented findings, disposition and treatment plan as described except to the extent set forth below. Patient seen and examined at bedside Labs, radiology, chart personally reviewed. All lines examined without evidence of infection. Management was reviewed during multidisciplinary critical care rounds. Neuropsych: Remains encephalopathic but much more alert today that time she is able to follow simple commands and will continue lactulose Pulm: Remains intubated and on vent except upon [place] ventilation on minimal vent settings being treated for pneumonia and pulmonary edema Cards: Remains on vasopressor support for likely distributive shock from infection; history of A. fib rate controlled FEN-GI: She is receiving enteral nutrition GI prophylaxis given Renal: ESRD on dialysis electrolytes are being replaced per protocol ID: Been treated broadly for MRSA pneumonia possible lawrence infection and gram- negative organisms ID following leukocytosis is persistent this may be in part related to necrosis of distal extremities which would coincide with rising alkaline phosphatase unfortunately patient is not a surgical candidate at this time Heme/Onc: DVT prophylaxis given persistent thrombocytopenia which is slightly worse today stable H&H this is likely related to critical illness Endo: Glucose monitored continuously sliding scale insulin as needed Integ/MSK: Skin care per routine ICU protocol CODE:DNRACC. I met with the patient's daughter Radha yesterday and today and brother at bedside and long conversation with him regarding goals of care do not feel that over the last week patient has made any significant improvement although today there is been some encouraging signs that patient is more responsive. During these times she was asked if she wanted the breathing tube taken out and she shook her head yes. From a Medical standpoint prognosis is extremely poor for meaningful recovery at this point family understands this and they are leaning towards making the patient comfort care I would proceed compassionate extubation without the possibility of reintubation and further de- escalation based upon clinical course. Palliative care is also following with this patient
[2017-03-10] MEDS: Folic Acid 1 MG TABLET PO SCH (07:46)
[2017-03-10] MEDS: Aspirin 81 MG TAB.CHEW PO SCH (07:46)
[2017-03-10] MEDS: EPINEPHrine 1 MG in D5% in Water 250 ML IVC SCH (07:47)
[2017-03-10] MEDS: Vasopressin 40 UNIT in D5% in Water 100 ML IV SCH (07:47)
--- NOTE | 2017-03-10 09:31 | Nephrology Progress Note ---
Date of Encounter: 03/10/17 Time of Encounter: 09:10 - Assessment and Plan (1) End-stage renal disease Current Visit: No Status: Acute Acute on chronic respiratory failure, encephalopathy, cirrhosis. No HD today. Subjective Principal diagnosis: Encephalopathy Interval history: Intubated, on one pressor. FIO2 50, peep 8. Objective - Vital Signs Vital signs: Vital Signs Temp Pulse Resp BP Pulse Ox 03/10/17 08:27 79 03/10/17 08:04 21 100 03/10/17 08:00 86 21 103/52 99 03/10/17 07:59 98.1 F 03/10/17 06:00 81 22 110/53 96 03/10/17 05:50 24 125/63 92 03/10/17 05:00 82 22 115/66 93 03/10/17 04:52 98 F 03/10/17 04:00 82 18 111/55 100 03/10/17 03:50 21 118/58 100 03/10/17 03:00 86 27 116/57 89 03/10/17 02:00 78 21 113/62 90 03/10/17 01:40 28 120/61 90 03/10/17 01:00 80 20 120/61 100 03/10/17 00:00 75 23 99/52 100 03/09/17 23:59 97.6 F 03/09/17 23:30 22 105/52 100 03/09/17 22:00 82 23 107/49 100 03/09/17 21:37 28 110/53 100 03/09/17 21:00 85 28 110/53 100 03/09/17 20:24 98.1 F 03/09/17 20:00 84 03/09/17 19:45 25 109/55 100 03/09/17 19:00 84 23 105/57 100 03/09/17 18:00 82 22 103/51 100 03/09/17 17:11 24 104/42 100 03/09/17 17:00 98.1 F 80 21 104/42 100 03/09/17 16:00 80 12 106/76 95 03/09/17 15:29 21 109/55 99 03/09/17 15:00 78 24 109/55 100 03/09/17 14:00 73 18 104/53 99 03/09/17 13:09 19 108/54 100 03/09/17 13:00 80 20 108/54 99 03/09/17 12:32 97.7 F 03/09/17 12:18 78 03/09/17 12:00 77 21 99/51 100 03/09/17 11:04 20 103/51 99 03/09/17 11:00 73 22 103/51 100 03/09/17 10:00 80 21 114/54 100 03/09/17 09:32 22 111/57 100 Intake and Output 03/09/17 03/10/17 03/10/17 23:59 07:59 15:59 Intake Total 987 / 987 475 / 475 Output Total 1850 / 1850 300 / 300 Balance -863 / -863 175 / 175 Intake: IV Fluids 358 / 358 225 / 225 Levophed 8 MG In Dextrose 258 / 258 225 / 225 5% 250 ML @ 5 MCG/MIN 9. 67 mls/hr IVC CONT PRN Rx #:[id number] Azactam 500 MG In 100 / 100 Dextrose 5% 100 ML @ 200 mls/hr IVPB Q8H CANDE Rx#: [id number] Tube Feeding 509 / 509 250 / 250 Free Water Intake Amount 120 / 120 Output: Urine 0 / 0 Stool 950 / 950 Rectal Tube 400 / 400 0 / 0 Catheter 500 / 500 300 / 300 Other: Weight 92.533 kg Blood Glucose* 91 140 - General Appearance General appearance: Present: well-developed, well-nourished, appears started age , intubated EENT: Present: mucous membranes moist Neck: Present: no JVD Additional Comments: harsh breath sounds Cardiology: Present: edema, irregular rhythm Additional Comments: upper extremities Gastrointestinal: Present: hypoactive bowel sounds Integumentary: Present: warm and dry Additional Comments: toes cyanotic Additional Comments: eyes open, non focus - Lab 03/10/17 03:35 03/10/17 03:35 Most recent lab results ABG pH 7.43 pH Units (7.32-7.45) 03/09/17 05:30 ABG pCO2 39 mmHg (35-45) 03/09/17 05:30 ABG pO2 79 mmHg (85-104) L 03/09/17 05:30 ABG HCO3 25.9 mEQ/L (21-27) 03/09/17 05:30 ABG O2 Saturation 96 % (95-98) 03/09/17 05:30 Calcium 8.5 mg/dL (8.6-10.8) L 03/10/17 03:35 Phosphorus 4.4 mg/dL (2.3-4.7) D 03/07/17 20:30 Magnesium 1.8 mg/dL (1.6-2.6) 03/07/17 20:30 - Stroke Is the patient on any antithrombotics?: No Contraindication Antithromb by Day Two: Not Indicated - Due to Bleeding Disorder or Risk of Bleeding (Coagulapathy with elevated INR) - VTE Reasons for not Prescribing Prophylaxis: Not indicated-Anticoagulated or INR therapeutic (she has been prescribed DVT prophylaxis) Documentation of Mechanical Device: Intermittent pneumatic compression device - AMI Reason for No Aspirin at Discharge: Drug treatment not indicated Consult Discharge Plan - Plan Referrals: Henrry Mccullough MD [Primary Care Provider] -
[2017-03-10] MEDS: Norepinephrine 8 MG in D5% in Water 250 ML IVC PRN (10:48)
[2017-03-10] MEDS: 0.9 % Sodium Chloride 1,000 ML PRIME SCH (10:49)
[2017-03-10 12:04] VITALS: BP 109/49
[2017-03-10] MEDS ORDERED: *HR* Morphine 2 MG/ML SYRINGE ONE (14:47)
[2017-03-10] MEDS ORDERED: *HR* Morphine 2 MG/ML SYRINGE IVP PRN (15:21)
[2017-03-10] MEDS ORDERED: Atropine Sulfate 1% 40 DROP/2 ML BOTTLE SL PRN (15:21)
[2017-03-10] MEDS ORDERED: Bisacodyl 10 MG RECTAL SUPPOSITORY RC PRN (15:22)
[2017-03-10] MEDS ORDERED: Ipratropium/Albuterol Neb 3 ML IH PRN (15:23)
--- NOTE | 2017-03-10 15:29 | Palliative Progress Note ---
Date of Encounter: 03/10/17 Time of Encounter: 14:40 - Assessment and plan (1) Goals of care, counseling/discussion Current Visit: Yes Status: Acute Assessment and plan: Family at bedside. Educated on extubation procedure and confirmed desire to DC all antibiotics, IV Fuids, vasopressors, ET tube and mechanical intubation. Code status changed to DNRCC- Comfort Care. Patient no longer desires Dialysis and shakes head to wanting comfort care only. Daughter Radha RENTERIA confirms desire to STOP all aggressive interventions and transition to comfort care. All alarms set to silence and prayer offered but declined by family. Morphine 2mg given, 1455 - RTS removed ET tube without complication. Sats 94% and spontaneous breathing. Placed 2L NC and will titrate for comfort. Comfort care medications ordered. Will transition to inpatient hospice tomorrow if patient maintains status. Called Dr. Rojas and updated on POC. Patient will stay in ICU and once Palliative care bed available will transfer. Family educated on comfort medications and comfort diet. (2) Dyspnea Current Visit: No Status: Acute Assessment and plan: Supplemental Oxygen, Duonebs. and HOB up with suction as needed. Morphine for dyspnea. Qualifiers: Dyspnea type: shortness of breath Qualified Code(s): R06.02 - Shortness of breath (3) Cirrhosis Current Visit: Yes Status: Chronic Qualifiers: Hepatic cirrhosis type: other cirrhosis Qualified Code(s): K74.69 - Other cirrhosis of liver (4) Acute and chronic respiratory failure Current Visit: Yes Status: Acute Assessment and plan: terminal extubation to comfort care Qualifiers: Respiratory failure complication: hypercapnia Qualified Code(s): J96.22 - Acute and chronic respiratory failure with hypercapnia (5) End stage renal disease Current Visit: No Status: Acute - Time Spent With Patient Total time spent is greater than 50% in coordination of care (as documented) at patient's floor/unit and/or counseling patient: Greater than 35 minutes (Family support provided.) - Subjective Interval history: Patient more alert today. Family gathered around bedside. Daughter Radha RENTERIA has discussed compassionate extubation for transition to comfort care with all family members and patient. I confirmed with each family member that extubation is desired. Family confirms desire for transition to comfort care. Case discussed with Dr. Rojas and plan for extubation confirmed. - Constitutional Vitals: Abnormal lab results WBC 30.7 K/mcL (4.3-11.1) H* 03/10/17 03:35 RBC 3.49 M/mcL (3.82-4.97) L 03/10/17 03:35 Hgb 7.7 g/dL (11.5-15.4) L 03/10/17 03:35 Hct 26.6 % (35.3-44.9) L 03/10/17 03:35 MCV 76.2 fL (83.0-100.0) L 03/10/17 03:35 MCH 22.1 pg (28.0-33.3) L 03/10/17 03:35 MCHC 28.9 g/dL (31.6-35.5) L 03/10/17 03:35 RDW 21.8 % (11.5-14.5) H 03/10/17 03:35 Plt Count 91 K/mcL (140-400) L 03/10/17 03:35 Band Neutrophils % 28.0 % (0-4) H 03/04/17 04:54 Myelocytes % 2.0 % (0) H 03/08/17 04:18 Neutrophils # 27.2 K/mcL (1.6-8.9) H 03/10/17 03:35 Nucleated RBCs/100 WBC 0.6 /100 WBC (0) H 03/10/17 03:35 Toxic Granulation Present (Not Present) A 03/03/17 03:15 Platelet Estimate Decreased (Normal) L 03/10/17 03:35 Immature Plt Fraction 7.5 % (1.1-6.1) H 03/09/17 04:38 Polychromasia 1+ (Not Present) A 03/02/17 08:10 Hypochromasia Present (Not Present) A 03/10/17 03:35 Poikilocytosis 1+ (Not Present) A 03/10/17 03:35 Basophilic Stippling 1+ (Not Present) A 02/25/17 07:11 Anisocytosis 2+ (Not Present) A 03/10/17 03:35 Microcytosis Present (Not Present) A 03/09/17 04:38 Macrocytosis Present (Not Present) A 03/05/17 03:50 Target Cells 1+ (Not Present) A 03/10/17 03:35 Hiren Cells 1+ (Not Present) A 03/06/17 03:10 Acanthocytes (Spur) 1+ (Not Present) A 03/05/17 03:50 Schistocytes 1+ (Not Present) A 03/09/17 04:38 PT 13.6 Seconds (9.4-12.1) H 03/10/17 03:35 APTT 58.4 Seconds (26.0-36.0) H 03/08/17 04:18 Fibrinogen 482 mg/dL (169-393) H 03/03/17 04:18 D-Dimer 874 ng/mLFEU (0-500) H 03/03/17 04:18 Heparin Anti-Xa, Unfract 0.01 IU/mL (0.30-0.70) L 03/01/17 04:10 ABG pO2 79 mmHg (85-104) L 03/09/17 05:30 ABG Total CO2 27.1 mEq/L (20-26) H 03/09/17 05:30 VBG pH 7.08 pH Units (7.32-7.42) L* 02/25/17 05:40 VBG pCO2 92 mmHg (41-51) H 02/25/17 05:40 VBG pO2 67 mmHg (25-40) H 02/25/17 05:40 VBG HCO3 27.3 mEq/L (21-27) H 02/25/17 05:40 Sodium 134 mEq/L (136-145) L 03/10/17 03:35 Potassium 3.0 mEq/L (3.5-4.5) L 03/10/17 03:35 BUN 45 mg/dL (7-20) H D 03/10/17 03:35 Creatinine 2.53 mg/dL (0.57-1.11) H 03/10/17 03:35 Est GFR ( Amer) 23 (> 60) L 03/10/17 03:35 Est GFR (Non-Af Amer) 19 (> 60) L 03/10/17 03:35 Glucose 116 mg/dL (70-99) H 03/10/17 03:35 POC Glucose 91 (58-89) H 03/09/17 23:10 Calcium 8.5 mg/dL (8.6-10.8) L 03/10/17 03:35 Direct Bilirubin 0.8 mg/dL (0.0-0.5) H 03/07/17 03:15 Alkaline Phosphatase 809 Units/L (38-126) H 03/10/17 03:35 B-Natriuretic Peptide 2203 pg/mL (0-100) H 02/25/17 07:11 Serum Total Protein 4.9 g/dL (6.0-8.3) L 03/10/17 03:35 Albumin 1.6 g/dL (3.5-5.0) L 03/10/17 03:35 Albumin/Globulin Ratio 0.5 (1.1-2.2) L 03/10/17 03:35 Amylase 16 Units/L (25-125) L 03/04/17 15:00 Ur Specimen Adequacy See below A 02/25/17 06:28 Urine Clarity Turbid (Clear) A 02/25/17 06:28 Urine Protein >=300 mg/dL (Neg-Trace) H 02/25/17 06:28 Urine Ketones Trace mg/dL (Negative) H 02/25/17 06:28 Urine Blood Large (Negative) H 02/25/17 06:28 Ur Leukocyte Esterase Large (Negative) H 02/25/17 06:28 Ur Culture Indicated? YES (NO) A 02/25/17 06:28 Pleural Appearance Hazy (Clear) A 02/26/17 15:30 Pleural RBC 0.020 M/mcL (0.000-0.002) H 02/26/17 15:30 - Head Head exam: Present: atraumatic, normal inspection, normocephalic - Eye Eye exam: Present: PERRL - ENT ENT exam: Present: mucous membranes moist - Respiratory Respiratory exam: Present: decreased breath sounds - Expanded Respiratory Exam Location: decreased breath sounds: Left, Right, Lower - Cardiovascular Cardiovascular exam: Present: RRR, +S1, +S2 - Expanded Cardiovascular Exam Peripheral pulses: 1+: Femoral (L) PM, Femoral (R) PM, Posterior Tibialis (L), Posterior Tibialis (R), Dorsalis Pedis (L) PM, Dorsalis Pedis (R) PM (necrotic toes), 2+: Carotid (L) PM, Carotid (R) PM, Radial (L), Radial (R) - GI/Abdominal GI/Abdominal exam: Present: diminished bowel sounds, soft - Rectal Rectal exam: Present: deferred - Neurological Exam Neurological exam: Present: alert (able to shake head to questions.) - Psychiatric Psychiatric exam: Present: flat affect - Skin Skin exam: Present: warm (upper extremities warm) Palliative Quality Palliative Quality: Screen for Code Status: Yes, Screen for Goals of Care: Yes, Screen for Pain: Yes, If Pain Regimen Started, Initiate Bowel Regimen: Yes, Screen for Nausea/Vomitting: Yes Code Status: 03/01/17 14:19 CODE [Resuscitation Status: Active] [RES] Routine Comment: Resuscitation Status: DNR-Comfort Care-Arrest CODE [Resuscitation Status: Active] [RES] Routine Comment: Resuscitation Status: DNR-Comfort Care - Labs CBC & Chem 7: 03/10/17 03:35 03/10/17 03:35 Labs: Laboratory Results - last 24 hr 03/09/17 03/09/17 03/09/17 04:44 07:52 12:25 WBC RBC Hgb Hct MCV MCH MCHC RDW Plt Count MPV Immature Gran % Seg Neutrophils % Lymphocytes % Monocytes % Eosinophils % Basophils % Neutrophils # Lymphocytes # Monocytes # Eosinophils # Basophils # Nucleated RBCs/100 WBC Platelet Estimate Hypochromasia Poikilocytosis Anisocytosis Target Cells PT INR Sodium Potassium Chloride Carbon Dioxide BUN Creatinine Est GFR ( Amer) Est GFR (Non-Af Amer) BUN/Creatinine Ratio Glucose POC Glucose 275 H 272 H 225 H Calculated Osmolality Calcium Magnesium Total Bilirubin AST ALT Alkaline Phosphatase Serum Total Protein Albumin Globulin Albumin/Globulin Ratio 03/09/17 03/09/17 03/09/17 15:55 19:18 23:10 WBC RBC Hgb Hct MCV MCH MCHC RDW Plt Count MPV Immature Gran % Seg Neutrophils % Lymphocytes % Monocytes % Eosinophils % Basophils % Neutrophils # Lymphocytes # Monocytes # Eosinophils # Basophils # Nucleated RBCs/100 WBC Platelet Estimate Hypochromasia Poikilocytosis Anisocytosis Target Cells PT INR Sodium Potassium Chloride Carbon Dioxide BUN Creatinine Est GFR ( Amer) Est GFR (Non-Af Amer) BUN/Creatinine Ratio Glucose POC Glucose 204 H 185 H 91 H Calculated Osmolality Calcium Magnesium Total Bilirubin AST ALT Alkaline Phosphatase Serum Total Protein Albumin Globulin Albumin/Globulin Ratio 03/10/17 03/10/17 03/10/17 03:35 03:35 03:35 WBC 30.7 H* RBC 3.49 L Hgb 7.7 L Hct 26.6 L MCV 76.2 L MCH 22.1 L MCHC 28.9 L RDW 21.8 H Plt Count 91 L MPV 9.8 Immature Gran % 4.0 Seg Neutrophils % 88.5 Lymphocytes % 3.2 Monocytes % 3.8 Eosinophils % 0.4 Basophils % 0.1 Neutrophils # 27.2 H Lymphocytes # 1.0 Monocytes # 1.2 Eosinophils # 0.1 Basophils # 0.0 Nucleated RBCs/100 WBC 0.6 H Platelet Estimate Decreased L Hypochromasia Present A Poikilocytosis 1+ A Anisocytosis 2+ A Target Cells 1+ A PT 13.6 H INR 1.3 Sodium 134 L Potassium 3.0 L Chloride 100 Carbon Dioxide 26 BUN 45 H D Creatinine 2.53 H Est GFR ( Amer) 23 L Est GFR (Non-Af Amer) 19 L BUN/Creatinine Ratio 18 Glucose 116 H POC Glucose Calculated Osmolality 291 Calcium 8.5 L Magnesium Total Bilirubin 0.9 AST 19 ALT 14 Alkaline Phosphatase 809 H Serum Total Protein 4.9 L Albumin 1.6 L Globulin 3.3 Albumin/Globulin Ratio 0.5 L 03/10/17 11:15 WBC RBC Hgb Hct MCV MCH MCHC RDW Plt Count MPV Immature Gran % Seg Neutrophils % Lymphocytes % Monocytes % Eosinophils % Basophils % Neutrophils # Lymphocytes # Monocytes # Eosinophils # Basophils # Nucleated RBCs/100 WBC Platelet Estimate Hypochromasia Poikilocytosis Anisocytosis Target Cells PT INR Sodium Potassium Chloride Carbon Dioxide BUN Creatinine Est GFR ( Amer) Est GFR (Non-Af Amer) BUN/Creatinine Ratio Glucose POC Glucose Calculated Osmolality Calcium Magnesium 1.8 Total Bilirubin AST ALT Alkaline Phosphatase Serum Total Protein Albumin Globulin Albumin/Globulin Ratio - ABG Interpretation ABG results: ABG ABG pH 7.43 pH Units (7.32-7.45) 03/09/17 05:30 ABG pCO2 39 mmHg (35-45) 03/09/17 05:30 ABG pO2 79 mmHg (85-104) L 03/09/17 05:30 ABG O2 Saturation 96 % (95-98) 03/09/17 05:30 PT/INR, D-dimer PT 13.6 Seconds (9.4-12.1) H 03/10/17 03:35 D-Dimer 874 ng/mLFEU (0-500) H 03/03/17 04:18 Consult Discharge Plan - Plan Referrals: Henrry Mccullough MD [Primary Care Provider] -
[2017-03-10] MEDS ORDERED: *HR* Morphine 2 MG/ML SYRINGE IVP ONE (15:42)
[2017-03-10] MEDS ORDERED: Ondansetron 4 MG/2 ML VIAL IVP SCH (18:00)
[2017-03-10] MEDS ORDERED: Aminoglycoside Consult 1 EACH MC ONE (19:04)
--- NOTE | 2017-03-21 14:39 | Death Note ---
Discharge Sum: Summary - Date and Time Date of admission: 02/25/17 09:26 Date of : 03/10/17 Time of : 16:15 - Summary Details: Patient admitted with severe septic shock and multiorgan system failure including respiratory failure requiring mechanical ventilation and severe encephalopathy. Although she made some improvement over approximately 2 weeks she was unable to be weaned completely off vasopressor support and required mechanical ventilation patient had earlier determined that she did not want to be kept alive on life support palliative care was consulted and patient was transitioned to comfort measures and terminal extubation was undertaken she shortly thereafter - Additional Data Confirmation of as documented by pronouncing clinician: no pulse, no respirations, no heart sounds, pupils fixed and dilated Family: at bedside Attending/PCP notified?: No Attending physician: Tyler Guthrie, DO Was code activated?: No Autopsy requested?: No glove examiner notified?: No Organ bank notified?: No Advance directives: Yes Hospice patient?: No Discharge Sum: Diag - PCOD Probable Cause of : Septic shock Discharge Sum: Prov - Provider Primary care physician: Henrry Mccullough MD Consults: 02/25/17 10:00 Consult to Dialysis [CONS] ONCE 02/25/17 11:19 Consult to Fur Repairer [CONS] Routine Reason for SW Consult: Will need to return to rehab and possibly set up for ECF. 02/26/17 10:07 Consult to Nutrition [CONS] Routine Comment: Consulting Provider: NUTRITION Reason for Dietary Consult: TF Start and Manage 02/27/17 08:30 Consult to Dialysis [CONS] ONCE 02/28/17 14:19 Consult to Palliative Care [CONS] Routine Comment: Consulting Provider: Palliative Care [facility] Reason for Consult: ESRD/cirrhosis/Resp failure Call Completed: Yes 03/02/17 09:00 Consult to Dialysis [CONS] ONCE 03/04/17 11:02 Consult to Infectious Diseases [CONS] Routine Consulting Provider: Infectious Disease [place] Reason for Consult: Infection of unknown source/sepsis Call Completed: Yes 03/04/17 12:00 Consult to Dialysis [CONS] ONCE 03/05/17 11:30 Consult to Surgery [CONS] Routine Consulting Provider: Surgery [facility] [place] Reason for Consult: Decubitus ulcer Call Completed: Yes 03/06/17 08:45 Consult to Dialysis [CONS] ONCE 03/06/17 11:12 Consult to Vascular Surgery [CONS] Routine Consulting Provider: Vascular Surgery [place] Reason for Consult: bilateral toe cyanosis Call Completed: Yes 03/06/17 11:19 Consult to Podiatry [CONS] Routine Consulting Provider: [facility] Reason for Consult: cyanotic toes bilaterally Call Completed: Yes 03/08/17 12:15 Consult to Dialysis [CONS] ONCE
== END 2017-03-10 19:05 | disposition expired | DRG 853 ==
LOC: EMEROO 05:00 → ICNU 09:26
PROVIDERS: ADMIT Specialist; ATTEND Specialist